=== PATIENT | female | born 1945 | race Caucasian/White ===

== ENCOUNTER → 2018-05-01 12:08 | Outpatient (CLI) | payer OTHER, SELFPAY ==
[2018-05-01 14:49] LABS: Alanine Aminotransferase 17 IU/L (9-52); Albumin Globulin Ratio 1.2 (1.0-2.8); Alkaline Phosphatase 56 U/L (38-126); Aspartate Aminotransferase 26 IU/L (14-36); Bilirubin Total 0.6 mg/dL (0.2-1.3); Blood Urea Nitrogen 15 mg/dL (7-17); Calcium 9.2 mg/dL (8.4-10.2); Carbon Dioxide 29 mmol/L (22-32); Chloride 102 mmol/L (98-107); Cholesterol 258 mg/dL (140-199); Estimated Glomerular Filt Rate > 60.0 mL/min (>60); Globulin 3.3 g/dL (1.7-4.1); Glucose 97 mg/dL (80-110); HDL Cholesterol 77 mg/dL (40-60); HEMOLYSIS < 15 (0-50); LDL Cholesterol Calculated 169 mg/dL (<100); Potassium 4.2 mmol/L (3.4-5.1); Sodium 140 mmol/L (137-145); Total Protein 7.3 g/dL (6.3-8.2); Triglycerides 61 mg/dL (35-150)
[2018-05-01 14:50] LABS: Thyroid Stimulating Hormone 3.86 uIU/mL (0.47-4.68)
[2018-05-01 15:49] LABS: Microalbumi Creatinin Ratio Ur 7.1 ug/mg CR (<30); Microalbumin Urine Random < 0.6 mg/dL (0-1.6)
== END ==
PROVIDERS: Family Provider Physician Assistant; PCP Physician Assistant; Visit Provider Physician Assistant
DX: I10 Essential (primary) hypertension (principal); E03.9 Hypothyroidism, unspecified
CPT/HCPCS: 36415; 80053; 80061; 82043; 82570; 84443

== ENCOUNTER → 2018-08-20 13:11 | Outpatient (CLI) | payer OTHER, SELFPAY | PROVIDERS: PCP Physician Assistant; Visit Provider Physician Assistant | DX: Z53.9 Procedure and treatment not carried out, unspecified reason (principal) ==

== ENCOUNTER → 2018-10-23 12:11 | Outpatient (CLI) | payer OTHER, SELFPAY ==
[2018-10-23 12:52] LABS: Alanine Aminotransferase 20 IU/L (9-52); Albumin 4.3 g/dL (3.5-5.0); Albumin Globulin Ratio 1.2 (1.0-2.8); Alkaline Phosphatase 66 U/L (38-126); Aspartate Aminotransferase 28 IU/L (14-36); BUN Creatinine Ratio 23.3 (6-22); Bilirubin Total 0.4 mg/dL (0.2-1.3); Blood Urea Nitrogen 14 mg/dL (7-17); Calcium 9.5 mg/dL (8.4-10.2); Carbon Dioxide 27 mmol/L (22-32); Chloride 100 mmol/L (98-107); Cholesterol 268 mg/dL (140-199); Estimated Glomerular Filt Rate > 60.0 mL/min (>60); Globulin 3.6 g/dL (1.7-4.1); Glucose 92 mg/dL (80-110); HDL Cholesterol 81 mg/dL (40-60); HEMOLYSIS < 15 (0-50); LDL Cholesterol Calculated 176 mg/dL (<100); Potassium 4.3 mmol/L (3.4-5.1); Sodium 138 mmol/L (137-145); Total Protein 7.9 g/dL (6.3-8.2); Triglycerides 57 mg/dL (35-150)
[2018-10-23 13:22] LABS: Thyroid Stimulating Hormone 3.72 uIU/mL (0.47-4.68)
[2018-10-23 14:45] LABS: Creatinine Urine Random 53.1 mg/dL
[2018-10-23 14:52] LABS: Microalbumi Creatinin Ratio Ur 11.2 ug/mg CR (<30); Microalbumin Urine Random < 0.6 mg/dL (0-1.6)
== END ==
PROVIDERS: PCP Physician Assistant; Visit Provider Physician Assistant
DX: E03.9 Hypothyroidism, unspecified (principal); E78.5 Hyperlipidemia, unspecified; I10 Essential (primary) hypertension
CPT/HCPCS: 36415; 80053; 80061; 82043; 82570; 84443

== ENCOUNTER 2018-11-19 16:53 | Emergency (ER) | payer OTHER, SELFPAY ==
[2018-11-19 17:05] VITALS: BP 150/90; PULSE 70; RESP 14; TEMP 36.2; O2SAT 99
--- NOTE | 2018-11-19 17:11 | DI.CT.S_ITS ---
PROCEDURE: CT HEAD/BRAIN WO CON INDICATIONS: trip and fall, complex lac above left eyebrow, ASA 325 daily TECHNIQUE: Noncontrast 4.5 mm thick angled axial sections acquired from the foramen magnum to the vertex, with coronal and sagittal reformats. For radiation dose reduction, the following was used: automated exposure control, adjustment of mA and/or kV according to patient size. COMPARISON: None. FINDINGS: Image quality: Excellent. CSF spaces: Basal cisterns are patent. No extra-axial fluid collections. The ventricles are symmetric in size and shape. Brain: No intracranial bleeds or masses. There is cerebral volume loss for age, with resultant ventricular and sulcal prominence. There are periventricular and deep white matter chronic small vessel ischemic changes. There is intracranial internal carotid artery atherosclerosis. Skull and face: Left supraorbital soft tissue laceration is seen. Calvarium and visualized facial bones appear intact, without suspicious lesions. Sinuses: Visualized sinuses and mastoids are clear. IMPRESSION: 1. No CT evidence of acute intracranial pathology. Age-appropriate atrophy and mild periventricular white matter microangiopathic changes. 2. Left supraorbital laceration. No acute skull fracture or orbital wall fracture. Dictated by: Dragan Maria M.D. on 11/19/2018 at 17:38 Approved by: Dragan Maria M.D. on 11/19/2018 at 17:39
--- NOTE | 2018-11-19 18:47 | ED.FALL ---
HPI - Fall General Chief Complaint: Fall Stated Complaint: FALL HIT HEAD Time Seen by Provider: 11/19/18 18:07 Source: patient and family Mode of arrival: ambulatory Limitations: no limitations History of Present Illness HPI Narrative: Patient is a 73-year-old female who presents after ground level fall. She said [place]. She has an obvious laceration left supraorbital. No loss of consciousness no neck pain. She does take aspirin daily. She has no vision changes nausea or vomiting. She has no neck pain numbness or tingling. MD complaint: fall Onset (ago): minute(s) Fall from: standing Fall witnessed: yes, by family Place fall occurred: street Loss of consciousness: none Symptoms prior to fall: none Context: tripped/slipped Location of injury: head and face Related Data Home Medications Medication Instructions Recorded Confirmed aspirin 325 mg tablet 650 mg PO DAILY tab 11/05/18 11/19/18 amlodipine [Norvasc] 5 mg PO DAILY 11/19/18 11/19/18 levothyroxine [Synthroid] 75 mcg PO DAILY 11/19/18 11/19/18 Previous Rx's Medication Instructions Recorded lisinopril 20 1 tab PO QDAY #60 tab 10/18/18 mg-hydrochlorothiazide 25 mg tablet Allergies Allergy/AdvReac Type Severity Reaction Status Date / Time Ujkvnbs-[id number]-Xvy Reductase AdvReac Intermediate myalgias, Unverified 11/05/18 13:55 Inhibitor tinnitus [[id number] REDUCTASE INHIBITOR] Review of Systems Review of Systems GENERAL: Denies chills, fatigue, malaise, fever, sweats, travel HEENT: Denies sinus pain, ear pain, sore throat, difficulty swallowing, neck pain RESPIRATORY: Denies dyspnea, cough, wheezing, hemoptysis, sputum. CARDIOVASCULAR: Denies chest pain, palpitations, orthopnea, edema GASTROINTESTINAL: Denies nausea, vomiting, abdominal pain, diarrhea, constipation, melena. : Denies dysuria, frequency, incontinence, hematuria, urinary retention, flank pain. MUSCULOSKELETAL: Denies weakness, joint pain, or bony pain SKIN: +Laceration left supra orbital NEUROLOGIC: Denies weakness, dizziness, headache, numbness, change in speech, confusion PSYCHIATRIC: No concerning psychosocial issues. 12 point review of systems is negative except for those stated above and HPI Exam Initial Vital Signs Initial Vital Signs: Vital Signs Temperature 97.2 F L 11/19/18 17:05 Pulse Rate 70 11/19/18 17:05 Respiratory Rate 14 11/19/18 17:05 Blood Pressure 150/90 H 11/19/18 17:05 Pulse Oximetry 99 11/19/18 17:05 GENERAL: Alert well-appearing elderly female no acute distress HEENT: Head atraumatic,EOMI, pupils reactive, NECK: Supple nontender no vertebral tenderness full range of motion flexion and extension. No sign of trauma CARDIOVASCULAR: Regular rate and rhythm without murmurs, rubs or gallops. RESPIRATORY: Breath sounds equal bilaterally, no wheezes rales or rhonchi. ABDOMEN: Soft, nontender. Normoactive bowel sounds all 4 quadrants. No guarding or rebound. EXTREMITIES: Normal range of motion, no clubbing or edema. Neurovascularly intact NEUROLOGICAL: Alert and oriented x4.Normal gait and speech. Cranial nerves II through XII grossly intact. Good [id number], good [id number], strength equal bilaterally, no dysarthria or aphasia, sensation in tact to soft touch bilaterally, no visual changes, no facial droop SKIN: 6 cm laceration left supraorbital [facility] Medical History Hypothyroid (Acute) Surgical History History of thyroidectomy Social History Smoking Status: Former smoker Tobacco: How many years used: 42 second hand exposure: No alcohol intake: current (a couple of 6 ounce glasses of wine everyday and a shot of vodka before bed.) substance use type: marijuana Social History Smoking Status: Former smoker Tobacco: How many years used: 42 second hand exposure: No alcohol intake: current (a couple of 6 ounce glasses of wine everyday and a shot of vodka before bed.) substance use type: marijuana Procedures Laceration Repair Laceration 1: Site: face Side (If applicable): left ( supraorbital) Size (cm): 6 Description: stellate Depth: involves muscle layer Local Anesthetic: lidocaine 2% and with epi Amount of anesthesia used (mL): 5 Pre-repair: wound explored, irrigated extensively and deep structures intact Skin layer closed with: nylon Size (cm): 4-0 Number of sutures: 8 Technique: simple, interrupted Subcutaneous layer closed with: vicryl Size: 4-0 Number of sutures: 2 Technique: other (Mattress) Course Orders Ordered: ED Orders 11/19/18 17:11 CT head/brain wo con Stat Vital Signs - 8 hr 11/19/18 17:05 11/19/18 19:08 Temperature 97.2 F L Pulse Rate 70 83 Respiratory Rate 14 18 Blood Pressure 150/90 H Blood Pressure [Left Arm] 148/72 H Pulse Oximetry 99 97 MDM - Fall Lab Data Urine Dip Bedside Urine Glucose Negative Bedside Urine Bilirubin - Negative Bedside Urine Ketone - Negative Urine Specific [place] 1.015 Bedside Urine Occult Blood - Negative Bedside Urine pH 8.0 Bedside Urine Protein +/- 15 Bedside Urine Urobilinogen - Negative Bedside Urine Nitrite - Negative Bedside Urine Leukocytes - Negative Esterase Imaging Data CT scan - head: Radiologist's impression: PROCEDURE: CT HEAD/BRAIN WO CON INDICATIONS: trip and fall, complex lac above left eyebrow, ASA 325 daily TECHNIQUE: Noncontrast 4.5 mm thick angled axial sections acquired from the foramen magnum to the vertex, with coronal and sagittal reformats. For radiation dose reduction, the following was used: automated exposure control, adjustment of mA and/or kV according to patient size. COMPARISON: None. FINDINGS: Image quality: Excellent. CSF spaces: Basal cisterns are patent. No extra-axial fluid collections. The ventricles are symmetric in size and shape. Brain: No intracranial bleeds or masses. There is cerebral volume loss for age, with resultant ventricular and sulcal prominence. There are periventricular and deep white matter chronic small vessel ischemic changes. There is intracranial internal carotid artery atherosclerosis. Skull and face: Left supraorbital soft tissue laceration is seen. Calvarium and visualized facial bones appear intact, without suspicious lesions. Sinuses: Visualized sinuses and mastoids are clear. IMPRESSION: 1. No CT evidence of acute intracranial pathology. Age-appropriate atrophy and mild periventricular white matter microangiopathic changes. 2. Left supraorbital laceration. No acute skull fracture or orbital wall fracture. Dictated by: Dragan Maria M.D. on 11/19/2018 at 17:38 Discharge Plan Departure Patient Disposition: Home Clinical Impression: Closed head injury, Face lacerations Discharge Date/Time: 11/19/18 19:09 Interventions: ED Discharge Assessment Last Done: 11/19/18 19:08 Instructions: DI for Laceration Repair, Closed Head Injury Activity Restrictions/Additional Instructions: 1. Have your suture removed in 5-7 days, you may go to walk-in clinic, return to the ER or call your primary care physician. 2. No soaking in water including dishes, bathtubs, Lakes, swimming pools etc 3. Signs of infection include, but not limited to, increased redness, increased swelling, increased pain, fever and purulent drainage, if the symptoms should arise, you may need an antibiotic and you should have a reevaluation either by your primary care provider or by the emergency department. 4. Closed head injury: Return to ER if you should have persistent vomiting, seizures, weakness, difficulty speaking or any new or concerning symptoms Prescriptions: No Action aspirin 325 mg tablet 650 mg PO DAILY RF: 0 lisinopril-hydrochlorothiazide 20-25 mg tablet 1 tab PO QDAY Qty: 60 RF: 0 amlodipine [Norvasc] 5 MG tablet 5 mg PO DAILY RF: 0 levothyroxine [Synthroid] 75 mcg tablet 75 mcg PO DAILY RF: 0 Referrals: Caprice Burrows PA-C [Primary Care Provider] -
--- NOTE | 2018-11-19 18:54 | ED_ITS ---
HPI - Fall General Chief Complaint: Fall Stated Complaint: FALL HIT HEAD Time Seen by Provider: 11/19/18 18:07 Source: patient and family Mode of arrival: ambulatory Limitations: no limitations History of Present Illness HPI Narrative: Patient is a 73-year-old female who presents after ground level fall. She said [place]. She has an obvious laceration left supraorbital. No loss of consciousness no neck pain. She does take aspirin daily. She has no vision changes nausea or vomiting. She has no neck pain numbness or tingling. MD complaint: fall Onset (ago): minute(s) Fall from: standing Fall witnessed: yes, by family Place fall occurred: street Loss of consciousness: none Symptoms prior to fall: none Context: tripped/slipped Location of injury: head and face Related Data Home Medications Medication Instructions Recorded Confirmed aspirin 325 mg tablet 650 mg PO DAILY tab 11/05/18 11/19/18 amlodipine [Norvasc] 5 mg PO DAILY 11/19/18 11/19/18 levothyroxine [Synthroid] 75 mcg PO DAILY 11/19/18 11/19/18 Previous Rx's Medication Instructions Recorded lisinopril 20 1 tab PO QDAY #60 tab 10/18/18 mg-hydrochlorothiazide 25 mg tablet Allergies Allergy/AdvReac Type Severity Reaction Status Date / Time Xxkwgro-[id number]-Myv Reductase AdvReac Intermediate myalgias, Unverified 11/05/18 13: 55 Inhibitor tinnitus [[id number]-KEP REDUCTASE INHIBITOR] Review of Systems Review of Systems GENERAL: Denies chills, fatigue, malaise, fever, sweats, travel HEENT: Denies sinus pain, ear pain, sore throat, difficulty swallowing, neck pain RESPIRATORY: Denies dyspnea, cough, wheezing, hemoptysis, sputum. CARDIOVASCULAR: Denies chest pain, palpitations, orthopnea, edema GASTROINTESTINAL: Denies nausea, vomiting, abdominal pain, diarrhea, constipation, melena. : Denies dysuria, frequency, incontinence, hematuria, urinary retention, flank pain. MUSCULOSKELETAL: Denies weakness, joint pain, or bony pain SKIN: +Laceration left supra orbital NEUROLOGIC: Denies weakness, dizziness, headache, numbness, change in speech, confusion PSYCHIATRIC: No concerning psychosocial issues. 12 point review of systems is negative except for those stated above and HPI Exam Initial Vital Signs Initial Vital Signs: Vital Signs Temperature 97.2 F L 11/19/18 17:05 Pulse Rate 70 11/19/18 17:05 Respiratory Rate 14 11/19/18 17:05 Blood Pressure 150/90 H 11/19/18 17:05 Pulse Oximetry 99 11/19/18 17:05 GENERAL: Alert well-appearing elderly female no acute distress HEENT: Head atraumatic,EOMI, pupils reactive, NECK: Supple nontender no vertebral tenderness full range of motion flexion and extension. No sign of trauma CARDIOVASCULAR: Regular rate and rhythm without murmurs, rubs or gallops. RESPIRATORY: Breath sounds equal bilaterally, no wheezes rales or rhonchi. ABDOMEN: Soft, nontender. Normoactive bowel sounds all 4 quadrants. No guarding or rebound. EXTREMITIES: Normal range of motion, no clubbing or edema. Neurovascularly intact NEUROLOGICAL: Alert and oriented x4.Normal gait and speech. Cranial nerves II through XII grossly intact. Good [id number]-[id number], good [id number]-znru, strength equal bilaterally, no dysarthria or aphasia, sensation in tact to soft touch bilaterally, no visual changes, no facial droop SKIN: 6 cm laceration left supraorbital [facility] Medical History Hypothyroid (Acute) Surgical History History of thyroidectomy Social History Smoking Status: Former smoker Tobacco: How many years used: 42 second hand exposure: No alcohol intake: current (a couple of 6 ounce glasses of wine everyday and a shot of vodka before bed.) substance use type: marijuana Social History Smoking Status: Former smoker Tobacco: How many years used: 42 second hand exposure: No alcohol intake: current (a couple of 6 ounce glasses of wine everyday and a shot of vodka before bed.) substance use type: marijuana Procedures Laceration Repair Laceration 1: Site: face Side (If applicable): left ( supraorbital) Size (cm): 6 Description: stellate Depth: involves muscle layer Local Anesthetic: lidocaine 2% and with epi Amount of anesthesia used (mL): 5 Pre-repair: wound explored, irrigated extensively and deep structures intact Skin layer closed with: nylon Size (cm): 4-0 Number of sutures: 8 Technique: simple, interrupted Subcutaneous layer closed with: vicryl Size: 4-0 Number of sutures: 2 Technique: other (Mattress) Course Orders Ordered: ED Orders 11/19/18 17:11 CT head/brain wo con Stat Vital Signs - 8 hr 11/19/18 17:05 11/19/18 19:08 Temperature 97.2 F L Pulse Rate 70 83 Respiratory Rate 14 18 Blood Pressure 150/90 H Blood Pressure [Left Arm] 148/72 H Pulse Oximetry 99 97 MDM - Fall Lab Data Urine Dip Bedside Urine Glucose Negative Bedside Urine Bilirubin - Negative Bedside Urine Ketone - Negative Urine Specific [place] 1.015 Bedside Urine Occult Blood - Negative Bedside Urine pH 8.0 Bedside Urine Protein +/- 15 Bedside Urine Urobilinogen - Negative Bedside Urine Nitrite - Negative Bedside Urine Leukocytes - Negative Esterase Imaging Data CT scan - head: Radiologist's impression: PROCEDURE: CT HEAD/BRAIN WO CON INDICATIONS: trip and fall, complex lac above left eyebrow, ASA 325 daily TECHNIQUE: Noncontrast 4.5 mm thick angled axial sections acquired from the foramen magnum to the vertex, with coronal and sagittal reformats. For radiation dose reduction, the following was used: automated exposure control, adjustment of mA and/or kV according to patient size. COMPARISON: None. FINDINGS: Image quality: Excellent. CSF spaces: Basal cisterns are patent. No extra-axial fluid collections. The ventricles are symmetric in size and shape. Brain: No intracranial bleeds or masses. There is cerebral volume loss for age , with resultant ventricular and sulcal prominence. There are periventricular and deep white matter chronic small vessel ischemic changes. There is intracranial internal carotid artery atherosclerosis. Skull and face: Left supraorbital soft tissue laceration is seen. Calvarium and visualized facial bones appear intact, without suspicious lesions. Sinuses: Visualized sinuses and mastoids are clear. IMPRESSION: 1. No CT evidence of acute intracranial pathology. Age-appropriate atrophy and mild periventricular white matter microangiopathic changes. 2. Left supraorbital laceration. No acute skull fracture or orbital wall fracture. Dictated by: Dragan Maria M.D. on 11/19/2018 at 17:38 Discharge Plan Departure Patient Disposition: Home Clinical Impression: Closed head injury, Face lacerations Discharge Date/Time: 11/19/18 19:09 Interventions: ED Discharge Assessment Last Done: 11/19/18 19:08 Instructions: DI for Laceration Repair, Closed Head Injury Activity Restrictions/Additional Instructions: 1. Have your suture removed in 5-7 days, you may go to walk-in clinic, return to the ER or call your primary care physician. 2. No soaking in water including dishes, bathtubs, [place], swimming pools etc 3. Signs of infection include, but not limited to, increased redness, increased swelling, increased pain, fever and purulent drainage, if the symptoms should arise, you may need an antibiotic and you should have a reevaluation either by your primary care provider or by the emergency department. 4. Closed head injury: Return to ER if you should have persistent vomiting, seizures, weakness, difficulty speaking or any new or concerning symptoms Prescriptions: No Action aspirin 325 mg tablet 650 mg PO DAILY RF: 0 lisinopril-hydrochlorothiazide 20-25 mg tablet 1 tab PO QDAY Qty: 60 RF: 0 amlodipine [Norvasc] 5 MG tablet 5 mg PO DAILY RF: 0 levothyroxine [Synthroid] 75 mcg tablet 75 mcg PO DAILY RF: 0 Referrals: Caprice Burrows PA-C [Primary Care Provider] -
[2018-11-19 19:08] VITALS: BP 148/72; PULSE 83; RESP 18; O2SAT 97
== END 2018-11-19 19:09 | disposition home or self-care (01) ==
PROVIDERS: Emergency Provider Emergency Medicine; Family Provider Physician Assistant; PCP Physician Assistant
DX: S09.90XA Unspecified injury of head, initial encounter (principal); S01.81XA Laceration without foreign body of other part of head, initial encounter; W01.0XXA Fall on same level from slipping, tripping and stumbling without subsequent striking against object, initial encounter
CPT/HCPCS: 12014; 70450; 81003; 99283; 99284

== ENCOUNTER 2019-03-07 14:46 | Inpatient (IN) | payer OTHER, SELFPAY ==
[2019-03-07] VITALS (11 sets, daily range): BP systolic 90–156; BP diastolic 51–75; PULSE 72–122; RESP 12–20; TEMP 36.3–36.7; O2SAT 90–100; BMI 71.1; BMI 31.4
--- NOTE | 2019-03-07 | DI.RAD.S_ITS ---
PROCEDURE: XR HIP W PEL IF DONE LT 2V INDICATIONS: post operative left hip arthroplasty TECHNIQUE: 2 views of the hip were acquired. COMPARISON: Radiographs from earlier same day. FINDINGS: Bones: Status post open reduction and internal fixation of comminuted left femoral neck fracture with anterograde intramedullary nivia and dynamic compression screw. No evidence for acute hardware complication. Remainder of the visualized osseous structures appear intact. Diffuse osteopenia. No suspicious bony lesions. Soft tissues: No suspicious soft tissue calcifications or masses. Expected soft tissue changes from recent surgical procedure. IMPRESSION: Status post ORIF of comminuted proximal left femur fracture. Dictated by: Marc Olson M.D. on 03/08/2019 at 9:14 Approved by: Marc Olson M.D. on 03/08/2019 at 9:16
--- NOTE | 2019-03-07 | DI.RAD.S_ITS ---
PROCEDURE: XR HIP W PEL IF DONE LT 2V INDICATIONS: ORIF LEFT HIP TECHNIQUE: 2 intraoperative fluoroscopic views of the hip were acquired. COMPARISON: None. FINDINGS: Limited intraoperative fluoroscopic images of the left hip demonstrate interval open reduction and internal fixation of comminuted left femoral neck fracture. No evidence for acute hardware complication. Postoperative alignment appears anatomic. Total fluoroscopy time measured 388.7 seconds. IMPRESSION: Intraoperative fluoroscopic support for left hip ORIF of comminuted femoral neck fracture. Dictated by: Marc Olson M.D. on 03/08/2019 at 14:22 Approved by: Marc Olson M.D. on 03/08/2019 at 14:28
--- NOTE | 2019-03-07 14:49 | ED.FALL ---
HPI - Fall General Chief Complaint: Fall Stated Complaint: GLF-left hip pain Time Seen by Provider: 03/07/19 14:49 Source: EMS Limitations: no limitations History of Present Illness HPI Narrative: A 73 year old female who presents with ground level fall. She says she has been doing intermittent fasting and has not had anything to eat since 9:00 p.m.. She was out walking she has got extremely dizzy lightheaded did not pass out but fell on an incline onto her left hip. No head injury no loss of consciousness. She denies any chest pain or heart palpitations. No fever. She did receive 150 mg of fentanyl prior to arrival. Related Data Home Medications Medication Instructions Recorded Confirmed aspirin 325 mg tablet 650 mg PO BEDTIME tab 11/05/18 03/07/19 lisinopril-hydrochlorothiazide 1 tab PO DAILY 03/07/19 03/07/19 olive leaf extract 1,000 mg PO DAILY 03/07/19 03/07/19 Previous Rx's Medication Instructions Recorded amlodipine 5 mg tablet 5 mg PO DAILY #90 tab 12/14/18 levothyroxine 75 mcg tablet 75 mcg PO DAILY #90 tab 02/13/19 Allergies Allergy/AdvReac Type Severity Reaction Status Date / Time Cawwbji-Jjb-Bur Reductase AdvReac Intermediate myalgias, Verified 11/25/18 16:19 Inhibitor tinnitus [[id number] REDUCTASE INHIBITOR] Review of Systems Review of Systems ROS Unobtainable: All systems reviewed & are unremarkable except as noted in HPI and below Constitutional Denies chills, Denies fever(s), Denies lethargy and Denies weakness ENT Ears, Nose, Mouth, and Throat: Denies change in voice, Denies neck pain and Denies sore throat Cardiovascular Reports lightheadedness, Denies dyspnea and Denies dyspnea on exertion Respiratory Denies cough, Denies dyspnea, Denies dyspnea on exertion and Denies wheezing Gastrointestinal Gastrointestinal: Denies abdominal pain, Denies change in bowel habits, Denies diarrhea, Denies nausea and Denies vomiting Genitourinary Denies hematuria, Denies flank pain, Denies urinary incontinence and Denies urinary urgency Musculoskeletal Reports as per HPI and Denies neck pain Integumentary/Breasts Denies pruritus, Denies erythema, Denies rash and Denies wounds Neurologic Denies weakness Allergic/Immunologic Denies wheezing Exam Initial Vital Signs Initial Vital Signs: Vital Signs Temperature 97.6 F 03/07/19 15:00 Pulse Rate 73 03/07/19 15:00 Respiratory Rate 20 03/07/19 15:00 Blood Pressure 139/64 03/07/19 15:00 Pulse Oximetry 98 03/07/19 15:00 GENERAL: Alert female appears in pain no acute distress HEENT: Head atraumatic,EOMI, pupils reactive, neck is supple no rigidity real tenderness CARDIOVASCULAR: Regular rate and rhythm without murmurs, rubs or gallops. RESPIRATORY: Breath sounds equal bilaterally, no wheezes rales or rhonchi. ABDOMEN: Soft, nontender. Normoactive bowel sounds all 4 quadrants. No guarding or rebound. EXTREMITIES: Normal range of motion, no clubbing or edema. Neurovascularly intact Left leg internally rotated and shortened distal pedal pulse intact Left shoulder no gross bony deformity on pain to palpation limited range of motion NEUROLOGICAL: Alert and oriented x4.Normal gait and speech. Cranial nerves II through XII grossly intact. SKIN: Warm, dry, no laceration, no petechiae, no rashes or lesions. [facility] Medical History Hypothyroid (Acute) Surgical History History of thyroidectomy Social History Smoking Status: Former smoker Tobacco: How many years used: 42 second hand exposure: No alcohol intake: current (a couple of 6 ounce glasses of wine everyday and a shot of vodka before bed.) substance use type: marijuana Social History Smoking Status: Former smoker Tobacco: How many years used: 42 second hand exposure: No alcohol intake: current (a couple of 6 ounce glasses of wine everyday and a shot of vodka before bed.) substance use type: marijuana Course Orders Ordered: ED Orders 03/07/19 14:49 XR hip w pel if done LT 2V Stat XR shoulder LT min 2V Stat 03/07/19 14:50 EKG-12 Lead Stat 03/07/19 15:19 Complete Blood Count AUTO DIFF Stat Comprehensive Metabolic Panel Stat Troponin & CK Cardiac Panel Stat 03/07/19 16:28 Consult to Orthopedic Surgery Stat Lactated Ringer's (Lactated Ringers) 1,000 mls @ 42 mls/hr IV CONT NI Discontinued Medications Hydromorphone HCl (Dilaudid) 0.5 mg IV NOW ONE Stop: 03/07/19 15:15 Last Admin: 03/07/19 15:21 Dose: 0.5 mg Sodium Chloride (Normal Saline 0.9%) 1,000 mls @ 1,000 mls/hr IV BOLUS ONE Stop: 03/07/19 15:48 Last Infusion: 03/07/19 17:34 Dose: 0 mls/hr Admin: 03/07/19 15:21 Dose: 1,000 mls/hr Ondansetron HCl (Zofran) 4 mg IV NOW ONE Stop: 03/07/19 15:29 Last Admin: 03/07/19 15:29 Dose: 4 mg Consultations Consultation #1: Dr. Baer reviewed xray. In the ED to see and evaluate patient. Patient will be going to OR this evening. Time: 16:30 Consultation #2: Dr. alejo hospitalist accepted patient for transfer. Time: 17:16 Vital Signs - 8 hr 03/07/19 15:00 Temperature 97.6 F Pulse Rate 73 Respiratory Rate 20 Blood Pressure 139/64 Pulse Oximetry 98 MDM - Fall Lab Data Attestation: I reviewed the patient's lab results. Result diagrams: 03/07/19 15:19 03/07/19 15:19 Lab Results 03/07/19 03/07/19 Range/Units 15:19 15:19 WBC 11.1 H (4.5-11.0) X10^3/uL RBC 4.01 (4.0-5.2) X10^6/uL Hgb 13.2 (12.0-16.0) g/dL Hct 38.8 (36-46) % MCV 96.7 (80-100) fL MCH 32.9 (26-34) PG MCHC 34.1 (30-36) % RDW 14.1 (11.6-14.8) % Plt Count 246 (150-400) X10^3/uL Neut % (Auto) 78.5 H (50-75) % Lymph % (Auto) 15.4 L (25-40) % [place] % (Auto) 4.2 (3-14) % Eos % (Auto) 0.6 L (2-4) % Baso % (Auto) 1.3 (0-2) % Neut # (Auto) 8700 H (0181-8236) /uL Lymph # (Auto) 1700 (5748-7349) /uL [place] # (Auto) 500 (0-900) /uL Eos # (Auto) 100 (0-450) /uL Baso # (Auto) 100 (0-100) /uL Sodium 135 L (137-145) mmol/L Potassium 4.2 (3.4-5.1) mmol/L Chloride 102 (98-107) mmol/L Carbon Dioxide 19 L (22-32) mmol/L BUN 16 (7-17) mg/dL Creatinine 0.80 (0.52-1.04) mg/dL Estimated GFR > 60.0 (>60) mL/min BUN/Creatinine Ratio 20.0 (6-22) Glucose 126 H (80-110) mg/dL Calcium 9.4 (8.4-10.2) mg/dL Total Bilirubin 0.9 (0.2-1.3) mg/dL AST 36 (14-36) IU/L ALT 23 (9-52) IU/L Alkaline Phosphatase 59 (38-126) U/L Total Creatine Kinase 137 H (30-135) U/L CK-MB (CK-2) 1.09 (<2.37) ng/mL CK-MB (CK-2) Rel Index 0.8 L (1.5-5.0) % Troponin I 0.025 (0.01-0.034) ng/mL Total Protein 7.1 (6.3-8.2) g/dL Albumin 4.1 (3.5-5.0) g/dL Globulin 3.0 (1.7-4.1) g/dL Albumin/Globulin Ratio 1.4 (1.0-2.8) Imaging Data left hip: Radiologist's impression: PROCEDURE: XR HIP W PEL IF DONE LT 2V INDICATIONS: fall deformity TECHNIQUE: AP pelvis with lateral view(s) of the left hip. COMPARISON: None. FINDINGS: Bones: No dislocations. Pelvic ring appears intact. No suspicious bony lesions. There is a comminuted intertrochanteric left hip fracture with impaction at the fracture planes and abnormal varus angulation due to the impaction present. The obturator ring on the left appears free of traumatic injury. Soft tissues: The visualized bowel gas pattern is normal. No suspicious soft tissue calcifications. IMPRESSION: Intertrochanteric comminuted impacted and abnormally angulated acute appearing left hip fracture. Surgical intervention is anticipated. Dictated by: Tim Rojo M.D. on 03/07/2019 at 15:31 left shoulder: Radiologist's impression: PROCEDURE: XR SHOULDER LT MIN 2V INDICATIONS: fall pain TECHNIQUE: 4 views of the shoulder were acquired. COMPARISON: None. FINDINGS: Bones: No fractures or dislocations. No suspicious bony lesions. Visualized ribs appear intact. Moderate a.c. joint osteoarthritis. Bone island is noted within the glenoid marrow space deep to the articular surface. Soft tissues: No suspicious soft tissue calcifications. IMPRESSION: Moderate a.c. joint osteoarthritis but without fracture or traumatic subluxation. Incidental note is made of a benign-appearing bone island deep to the articular surface of the glenoid base. Dictated by: Tim Rojo M.D. on 03/07/2019 at 15:30 ECG Data Attestation: I personally reviewed and interpreted this ECG as follows: Interpretation: normal sinus rhythm rate 70 P are [address] changes and T-wave inversion Discharge Plan Departure Patient Disposition: Admitted As Inpatient Interventions: ED Discharge Assessment Last Done: 03/07/19 18:21 Admit Date/Time: 03/07/19 17:32 Admit Provider: Daisy Higginbotham
[2019-03-07] MEDS: HYDROMORPHONE 1 MG INJ 0.5 MG IV (15:21)
[2019-03-07] MEDS: SODIUM CHLORIDE 0.9% 1,000 ML 1000 ML IV (15:21)
[2019-03-07] MEDS: ONDANSETRON 4 MG/2 ML INJ IV (15:29)
[2019-03-07 15:30] LABS: Add Manual Diff / Slide Review NO; Basophils Absolute Auto 100 /uL (0-100); Basophils Percent Auto 1.3 % (0-2); Eosinophils Absolute Auto 100 /uL (0-450); Eosinophils Percent Auto 0.6 % (2-4); Hematocrit 38.8 % (36-46); Hemoglobin 13.2 g/dL (12.0-16.0); Lymphocytes Absolute Auto 1700 /uL (1100-4500); Lymphocytes Percent Auto 15.4 % (25-40); Mean Corpuscular HGB Conc 34.1 % (30-36); Mean Corpuscular Hemoglobin 32.9 PG (26-34); Mean Corpuscular Volume 96.7 fL (80-100); Monocytes Absolute Auto 500 /uL (0-900); Monocytes Percent Auto 4.2 % (3-14); Neutrophils Absolute Auto 8700 /uL (1500-7000); Neutrophils Percent Auto 78.5 % (50-75); Platelet Count 246 X10^3/uL (150-400); Red Blood Cell Count 4.01 X10^6/uL (4.0-5.2); Red Cell Distribution Width 14.1 % (11.6-14.8); White Blood Cell Count 11.1 X10^3/uL (4.5-11.0)
[2019-03-07 15:47] LABS: Alanine Aminotransferase 23 IU/L (9-52); Albumin 4.1 g/dL (3.5-5.0); Albumin Globulin Ratio 1.4 (1.0-2.8); Alkaline Phosphatase 59 U/L (38-126); Aspartate Aminotransferase 36 IU/L (14-36); Bilirubin Total 0.9 mg/dL (0.2-1.3); Blood Urea Nitrogen 16 mg/dL (7-17); Calcium 9.4 mg/dL (8.4-10.2); Carbon Dioxide 19 mmol/L (22-32); Chloride 102 mmol/L (98-107); Creatine Kinase 137 U/L (30-135); Estimated Glomerular Filt Rate > 60.0 mL/min (>60); Glucose 126 mg/dL (80-110); HEMOLYSIS < 15 (0-50); Potassium 4.2 mmol/L (3.4-5.1); Sodium 135 mmol/L (137-145); Total Protein 7.1 g/dL (6.3-8.2)
[2019-03-07 15:59] LABS: Troponin I 0.025 ng/mL (0.01-0.034)
[2019-03-07 16:03] LABS: CKMB % Relative Index 0.8 % (1.5-5.0); Creatine Kinase MB 1.09 ng/mL (<2.37)
[2019-03-07] MEDS: LACTATED RINGERS 1,000 ML 42 ML IV ×2 (18:30→21:01)
[2019-03-07] MEDS: fentaNYL 100 MCG/2 ML INJ 50 MCG IV (18:31)
--- NOTE | 2019-03-07 18:39 | PM.HP.1 ---
History of Present Illness Date Patient Seen: 03/07/19 Time Patient Seen: 18:03 Chief complaint: GLF-left hip pain Narrative: This is a 73-year-old female who on fall today and noted the acute onset of left hip pain. She manages some rental since she was out in a remote area she landed on her left hip and then had to crawl around to find somebody to call 911. She last had something to eat or drink at about 9:00 p.m. last night. Patient History Medical History Hypothyroid (Acute) Surgical History History of thyroidectomy Social History Smoking Status: Former smoker Tobacco: How many years used: 42 second hand exposure: No alcohol intake: current (a couple of 6 ounce glasses of wine everyday and a shot of vodka before bed.) substance use type: marijuana Family & Social History Safety & Behavioral: Feels Safe in Current Yes Environment Been Physically Hurt or No Threatened By a Person Tobacco & Substance use: Smoking Status Former smoker alcohol intake current alcohol intake frequency 3 or more drinks per day Substance Use Type marijuana Meds Home Medications Medication Instructions Recorded Confirmed Type aspirin 325 mg tablet 650 mg PO BEDTIME tab 11/05/18 03/07/19 History amlodipine 5 mg tablet 5 mg PO DAILY #90 tab 12/14/18 03/07/19 Rx levothyroxine 75 mcg tablet 75 mcg PO DAILY #90 tab 02/13/19 03/07/19 Rx lisinopril-hydrochlorothiazide 1 tab PO DAILY 03/07/19 03/07/19 History olive leaf extract 1,000 mg PO DAILY 03/07/19 03/07/19 History Allergies Allergy/AdvReac Type Severity Reaction Status Date / Time [place]-Qpr-Toc Reductase AdvReac Intermediate myalgias, Verified 11/25/18 16:19 Inhibitor tinnitus [[id number] REDUCTASE INHIBITOR] Review of Systems Review of Systems She denies dizziness, does not note any chest pain shortness of breath or abdominal pain. She normally is able to ambulate without significant difficulty. She has not had any recent fever or chills or GI distress Exam Vital Signs (past 8 hours): - 03/07/19 15:00 Temperature 97.6 F Pulse Rate 73 Respiratory Rate 20 Blood Pressure 139/64 Pulse Oximetry 98 Oxygen Delivery Method Room Air Narrative Exam Narrative: HEENT is benign, lungs are clear, cor regular rate and rhythm, abdomen soft and benign, left lower extremity is markedly foreshortened and externally rotated, her pelvis is stable and she is nontender over her pelvis there is a small abrasion on the left knee but she has a stable knee examination and minimal effusion, she has small abrasion on the left elbow but full range of motion of the elbow and in track elbow extension and triceps function Objective Labs Result Diagrams: 03/07/19 15:19 03/07/19 15:19 Labs: Laboratory Results - last 24 hr 03/07/19 03/07/19 15:19 15:19 WBC 11.1 H RBC 4.01 Hgb 13.2 Hct 38.8 MCV 96.7 MCH 32.9 MCHC 34.1 RDW 14.1 Plt Count 246 Neut % (Auto) 78.5 H Lymph % (Auto) 15.4 L Lucas % (Auto) 4.2 Eos % (Auto) 0.6 L Baso % (Auto) 1.3 Neut # (Auto) 8700 H Lymph # (Auto) 1700 Lucas # (Auto) 500 Eos # (Auto) 100 Baso # (Auto) 100 Sodium 135 L Potassium 4.2 Chloride 102 Carbon Dioxide 19 L BUN 16 Creatinine 0.80 Estimated GFR > 60.0 BUN/Creatinine Ratio 20.0 Glucose 126 H Calcium 9.4 Total Bilirubin 0.9 AST 36 ALT 23 Alkaline Phosphatase 59 Total Creatine Kinase 137 H CK-MB (CK-2) 1.09 CK-MB (CK-2) Rel Index 0.8 L Troponin I 0.025 Total Protein 7.1 Albumin 4.1 Globulin 3.0 Albumin/Globulin Ratio 1.4 X-rays show a comminuted left proximal femur fracture in her troch and lesser troch variant with at least 3 major pieces. It is grossly displaced and in varus. Assessment & Plan Assessment & Plan narrative: Patient has a comminuted left proximal femur fracture. I have recommended open reduction internal fixation and fixation with a intramedullary nivia. The procedure alternatives risks benefits and complications were discussed in detail. I did explain to her that she has a severely comminuted fracture think it is reasonable to proceed with intramedullary fixation. She will need to be limited weight-bearing postoperatively. I also explained there is a possibility of failure of fixation or of her bone requiring revision surgery to hip arthroplasty. Anesthetic complications and risks were also discussed. Risk of infection bleeding malunion nonunion and failure of fixation were discussed in detail.
[2019-03-07] MEDS: CEFAZOLIN 2 GM/100 ML FROZ.PIGGY IV (18:49)
[2019-03-07] MEDS: BUPIVACAINE 0.25% W/ EPI 30 ML VIAL INJ (21:49)
[2019-03-07] MEDS: BUPIVACAINE LIPOSOME 266 MG/20 ML VIAL INJ (21:50)
--- NOTE | 2019-03-07 22:51 | P.OP_ITS ---
Operative Date/Time/Diagnoses Date of procedure: 03/07/19 Time of procedure: 19:20 Pre-op diagnosis: Comminuted left proximal femur fracture Post-op diagnosis: same Procedure & Clinicians Procedure: Open reduction internal fixation left proximal femur fracture with a Synthes TFN nail 105 degree helical blade 36 mm locking screw and as the 7.3 by 90 mm long threaded AO screw Same procedure as scheduled: Yes Indications: 73-year-old female who fell and has a grossly displaced comminuted left proximal femur fracture noted to have severe varus collapse and gross deformity brought to the operating room for open reduction internal fixation. Surgeon: Linda Baer Click Yes if Unassisted: Yes Anesthesia Type: General Operative Notes Findings: Severely displaced comminuted proximal femur fracture with fracture lesser trochanter greater trochanter intertrochanteric region with a moderate split and gross displacement, Joe quality bone Closure Type: primary Specimen(s): none sent Prosthetic devices, grafts, tissues, transplants, or devices: A0 Synthes TFN 105 mm helical blade 10 mm 125 degree nail 7.3 x 90 mm cannulated screw Estimated Blood Loss (mL): 350 Blood products transfused: none Procedure in detail: Patient was brought to the operating room she underwent the induction of a general anesthesia. She was carefully transferred to the [place] table and prepped and draped in a standard sterile fashion. A specific reduction technique was used in order to attempt to improve the overall alignment of the left proximal femur and I specifically checked in detail with fluoroscopy prior to prepping and draping that we had optimized the position her position of her leg applied traction attempted to correct the varus deformity of her femoral neck and improve her overall alignment. Her fracture was quite comminuted and grossly displaced and was only partially reducible closed. Time- out was performed and antibiotics were given. She was prepped sterilely. An incision was made which was based on the proximal aspect of the trochanter and carried proximally. I did place her leg in some slight flexion because of the gross deformity and marked flexion of the proximal fragment. Dissection was carried out through skin and subcutaneous tissues. Incision was made down to the level of the fascia. Fascia was incised and Gelpi retractors were placed. The trochanter was palpable as was the fracture site. I used a multi combination of 2 bone reduction clamps as well as a bone hook in order to improve the overall reduction as well as manual traction pressure and specifically attempting to optimize the reduction of the proximal femur. Was fairly difficult to reduce and it was a little difficult to get the clamps placed so that she was stable. I did place 2 pins across the fracture site in order to stabilize the femoral head in order to avoid any spinning of the femoral head as well as reducing the fracture site during nail insertion so that ultimate nail placement would be improved. A pin was placed in the proximal femur. Was difficult to get the bony starting Reamer in and I actually subsequently by used cannulated flexible reamers to a slightly enlarged our proximal starting spot. Guidewire was actually [place] Fraga passed down towards the knee. And then I used some additional reaming of the proximal femur specifically work to optimize the reduction which was pretty unstable despite several clamps and pins ultimately I was able then to then get the the starting Reamer over the guidewire reamed the proximal femur and also checked the canal passing a Reamer down some and a size 11 Reamer down some into the canal and then inserted the nail. Particularly worked to get the nail adequately position so that I would be able to shoot a pin into the femoral neck placed the pin that the fracture was a little unstable that the nail tended to back out as a attempted to advance the locking device down to the cortex and I also had to work to specifically get adequate anteversion with my nail position. To K-wires for 7 3 screws were placed across the fracture site stabilizing the fracture and the femoral head to avoid disimpaction of the fracture with helical blade advancement. Once the guidewire then appropriately placed in the proximal fragment the helical blade was carefully advanced. I used the imaging to make sure that I had adequately centralize the plate placement and meticulously advanced the helical blade. The blade was then locked. I did advance that as far as I could into the femoral head without penetration. The distal interlocking screw was placed. Next the alignment guide was removed from the nail and then I specifically placed removed the pins from around the nail but placed a supplemental screw fixation into the femoral head outside the nail in order to further stabilize the fracture. Fractures reduction and fixation was meticulously evaluated with fluoroscopy. The wounds were meticulously irrigated with normal saline. Hemostasis was achieved with Bovie cautery. Exparel and Marcaine was injected. The wound was closed with interrupted Vicryl leann stitches skin anna and was dressed sterilely. Patient tolerated the procedure well she was transferred to recovery room in satisfactory condition. Complications: none Condition: stable Disposition: Acute Care Plan for aftercare: Partial weight-bearing on the left lower extremity 25-50 lb at max. Will likely require short-term ECF.
[2019-03-08] VITALS (9 sets, daily range): BP systolic 111–146; BP diastolic 52–77; PULSE 80–96; RESP 16–18; TEMP 36.1–37; O2SAT 93–100
[2019-03-08] MEDS: LACTATED RINGERS 1,000 ML 125 ML IV ×2 (00:15→09:29)
--- NOTE | 2019-03-08 00:47 | P.HP_ITS ---
History of Present Illness Date Patient Seen: 03/08/19 Time Patient Seen: 00:05 Chief complaint: GLF-left hip pain Narrative: Avery Singh is a 73-year-old female patient with history sign ificant for hypertension, acquired hypothyroidism secondary to thyroid cancer, morbid obesity and frequent falls who presents to the ER following a ground level fall today landing on her left hip. Patient states she has been intermittently fasting and had not had food but has been drinking water and coffee when she became dizzy and fell onto her left hip. The patient relates that she has had intermittent episodes of dizziness that her transient and that the episode today is no different from those previous. She also sustained abrasions over the left patella and left elbow without contusion or swelling. She reports having previous falls last being on Monday where she landed on her left shoulder and sustained a contusion over her left eye. She has resolving ecchymosis on her right medial forearm. The patient indicates she did not lose consciousness and sustained no neck or back injury. She denies recent prodromal symptoms including recent illness, fevers or chills, headaches or visual changes and no diaphoresis. She denies nasal congestion or sore throat. She has no chest pain but endorses having occasional episodes of palpitations. She denies shortness of breath cough or wheezing. She reports no abdominal pain and has had no nausea or vomiting diarrhea or constipation. She reports no dysuria, frequency or hematuria however states when she has to go she has to go now. She typically is ambulatory without difficulty and independent in all functions of daily living. In the ER the patient was found to have a temperature of 97.6?, heart rate of 73, blood pressure 139/69, respiratory rate of 20 and room air oxygen saturation at 90%. A pelvis hip x-ray was taken which demonstrated intertrochanteric comminuted and angulated fracture of the left hip. Patient received Dilaudid and Zofran and a L of normal saline. Twelve lead EKG demonstrates sinus rhythm with a ventricular rate of 70 without ectopy or block, no ST or T-wave changes or indications of infarct. The patient's CBC is unremarkable as is her chemistry panel. She has a nonfasting glucose at 126. Dr. Baer orthopedics is consulted who is elected to take the patient from the emergency department to the OR for open reduction and internal fixation. The patient is evaluated on the floor following recovery in postanesthesia care unit. Patient History Medical History (Updated 03/08/19 @ 00:39 by ANDRES Dutta) Hypertension (Acute) Thyroid cancer (Acute) Hypothyroid (Acute) Surgical History (Updated 03/08/19 @ 00:40 by ANDRES Dutta) History of myomectomy (Acute) History of thyroidectomy Family History (Updated 03/08/19 @ 00:41 by ANDRES Dutta) Father Alcoholism Smoker Mother No problems noted. Sister No problems noted. Social History household members: none Smoking Status: Former smoker Tobacco: How many years used: 42 second hand exposure: No alcohol intake: current substance use type: marijuana Family & Social History Family History (Updated 03/08/19 @ 00:41 by ANDRES Dutta) Father Alcoholism Smoker Mother No problems noted. Sister No problems noted. Social History: household members none Prior Living Arrangements House Safety & Behavioral: Feels Safe in Current Yes Environment Been Physically Hurt or No Threatened By a Person Suicidal Ideation Description None Tobacco & Substance use: Smoking Status Former smoker alcohol intake current alcohol intake frequency 3 or more drinks per day Substance Use Type marijuana Comment: The patient presently lives alone in a single family house. She was previously and ?a long time ago?. Patient's father at the age of 53 related to alcoholism and smoking and her mother at age 93 of old age. She had 1 sister who of heart attack. She has no biological children and 2 adopted children. 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 Smokin year history of smoking 2 packs per week having quit 15 years ago. Alcohol: Patient endorses having 2-3 glasses of wine nightly. Substance use: The patient denies recreation pharmaceuticals but endorses the use of topical CBD oil and smoking cannabis. Advanced directives: The patient has no formal advanced directive however in direct conversation with the patient she wishes to be DO NOT RESUSCITATE. She designates her friend Kishan Johnson in concert with her children to be surrogate decision makers. Meds Home Medications Medication Instructions Recorded Confirmed Type aspirin 325 mg tablet 650 mg PO BEDTIME PRN tab 11/05/18 03/07/19 History amlodipine 5 mg tablet 5 mg PO DAILY #90 tab 12/14/18 03/07/19 Rx levothyroxine 75 mcg tablet 75 mcg PO DAILY #90 tab 02/13/19 03/07/19 Rx lisinopril-hydrochlorothiazide 1 tab PO DAILY 03/07/19 03/07/19 History olive leaf extract 1,000 mg PO DAILY 03/07/19 03/07/19 History Allergies Allergy/AdvReac Type Severity Reaction Status Date / Time Lwwvicc-Atc-Dvo Reductase AdvReac Intermediate myalgias, Verified 11/25/18 16:19 Inhibitor tinnitus [[id number] REDUCTASE INHIBITOR] Review of Systems Review of Systems All systems reviewed & are unremarkable except as noted in HPI and below Exam Vital Signs (past 8 hours): - 03/07/19 18:22 03/07/19 22:17 03/07/19 22:22 Temperature 98.1 F 98.0 F Pulse Rate 72 122 H 121 H Respiratory Rate 16 18 12 Blood Pressure 156/75 H 103/57 L 98/53 L Pulse Oximetry 100 92 90 L 03/07/19 22:26 03/07/19 22:31 03/07/19 22:41 Temperature 97.7 F Pulse Rate 121 H 116 H 115 H Respiratory Rate 15 13 14 Blood Pressure 92/61 95/57 L 90/61 Pulse Oximetry 98 93 94 03/07/19 22:51 03/07/19 23:02 03/07/19 23:10 Temperature 97.4 F L 97.8 F Pulse Rate 109 H 99 H 111 H Respiratory Rate 14 13 18 Blood Pressure 98/63 98/51 L 104/64 Pulse Oximetry 95 95 96 Oxygen Delivery Method Room Air Oxygen Flow Rate 1 Narrative Exam Narrative: GENERAL APPEARANCE: well developed, obese female with a BMI of 31.4, in no acute distress. HEAD: Normocephalic, tenderness over left upper orbital ridge with mild swelling, no redness, no lesions or abrasions. EYES: pupils equal, round, reactive to light and accommodation, sclera non- icteric, extraocular movement intact without nystagmus. EARS: normal external structures, no ear pain NOSE: sinuses non tender to percussion, no rhinorrhea ORAL CAVITY: mucosa moist without lesions or exudate, own dentition, palate normal, tongue in midline. THROAT: no erythema, no exudate, pharynx normal, uvula midline. NECK/THYROID: Well-healed fine surgical scar right neck, neck supple, no jugular venous distention, no carotid bruit, trachea midline. LYMPH NODES: no cervical or supraclavicular lymphadenopathy. SKIN: warm and dry, no suspicious lesions, no rashes, good turgor. HEART: regular rate with periods of irregular rhythm, sinus rhythm with frequent PACs on telemetry, S1-S2 without murmur, no rubs or gallops, brisk capillary refill, no edema LUNGS: clear to auscultation bilaterally, no coarseness crackles or wheezing, no cough present CHEST: Symmetrical movement, good tidal volume, no accessory muscle use, no pain to AP and lateral compression. ABDOMEN: Soft, round, no distention, no epigastric or abdominal tenderness on palpation, no guarding or peritoneal signs, no organomegaly, no flank or suprapubic tenderness, active bowel tones. BACK: Normal curvature, nontender to palpation, no CVA tenderness on percussion EXTREMITIES: Surgical dressing left hip with bloody drainage, abrasion over left patella with no swelling contusion or joint effusion, abrasion left lateral elbow without tenderness, bony deformity or swelling, upper extremity strength is 5/5 and symmetrical, strong dorsi plantar flexion bilateral feet, 2+ dorsalis pedis pulse. NEUROLOGIC: AAO x4, no focal neurologic deficits, cranial nerves II-XII grossly intact , motor strength normal upper and lower extremities, sensory exam intact to light touch, hearing grossly normal to speech. PSYCH: alert, appropriately interactive, cognitive function intact with good r ecall, good eye contact, stable mood with congruent affect Objective Labs Result Diagrams: 03/07/19 15:19 03/07/19 15:19 Labs: Laboratory Results - last 24 hr 03/07/19 03/07/19 15:19 15:19 WBC 11.1 H RBC 4.01 Hgb 13.2 Hct 38.8 MCV 96.7 MCH 32.9 MCHC 34.1 RDW 14.1 Plt Count 246 Neut % (Auto) 78.5 H Lymph % (Auto) 15.4 L [place] % (Auto) 4.2 Eos % (Auto) 0.6 L Baso % (Auto) 1.3 Neut # (Auto) 8700 H Lymph # (Auto) 1700 [place] # (Auto) 500 Eos # (Auto) 100 Baso # (Auto) 100 Sodium 135 L Potassium 4.2 Chloride 102 Carbon Dioxide 19 L BUN 16 Creatinine 0.80 Estimated GFR > 60.0 BUN/Creatinine Ratio 20.0 Glucose 126 H Calcium 9.4 Total Bilirubin 0.9 AST 36 ALT 23 Alkaline Phosphatase 59 Total Creatine Kinase 137 H CK-MB (CK-2) 1.09 CK-MB (CK-2) Rel Index 0.8 L Troponin I 0.025 Total Protein 7.1 Albumin 4.1 Globulin 3.0 Albumin/Globulin Ratio 1.4 Assessment & Plan Assessment & Plan narrative: This is a 73-year-old female patient who sustained a ground level fall secondary to dizziness landing on her left hip sustaining an intertrochanteric fracture of the left proximal femur. 1. Acute comminuted and angulated intertrochanteric fracture left hip. -patient sustained a ground level fall landing on her left hip sustaining abrasions to her left elbow and left knee. -x-ray demonstrates fracture from the lesser to greater trochanter that is comminuted and angulated. -Dr. Baer, orthopedics, is consulted and has taken the patient from the ER to the OR for open reduction internal fixation. -patient is status post ORIF with intramedullary nail with cannulated screw -postoperative orthopedic instructions per Dr. Baer. -will monitor CBC on home aspirin. 2. Frequent falls, active -patient has bruises in various stages of healing and endorses frequent falls occurring multiple times monthly, the last being 5 days ago. -the patient has risk factors of aspirin use, obesity and also reports she was wearing sandals today. -PT and OT to evaluate and treat. 3. Chronic dizziness, active -today the patient had dizziness antecedent to her fall but no other complaints of headache or weakness. -Patient had been on intermittent fast with nothing to eat since 9:00 a.m.. She had been drinking water and coffee, blood sugar upon arrival at the ER was 126. -the patient is prescribed diuretic, hydrochlorothiazide 25 mg daily which may contribute to her dizziness. -She reports no visual changes, chest pain, palpitations or shortness of breath. -The patient had a CT Head on 11/19/2018 following a fall which found no intercrainial abnormalities, left supr orbital laceration, age-appropriate atrophy and mild periventricular white matter microangiopathic changes, no findings to explain her dizziness. -no present complaint of dizziness at the time of exam, neurological exam is unremarkable. -hold hydrochlorothiazide. 4. Chronic hypertension, stable. -blood pressure on admission was 139/69. Immediately postop blood pressure is for in the 90s return to 120/60 upon admission to the acute care floor. -no complaints of chest pain or shortness of breath, 12 lead EKG reveals sinus rhythm without ectopy, signs of ischemia or infarct. Postoperatively patient in sinus rhythm with frequent PACs. -LR at 125 cc/hour. -will plan to hold patient's routine lisinopril 20 mg and amlodipine 5 mg until blood pressure improves. -will discontinue hydrochlorothiazide as discussed above. -will monitor chemistries. 5. Acquired hypothyroidism, chronic, presumed stable -continue levothyroxine 75 mcg daily The patient is admitted to the hospital for operative management for intertrochanteric fracture. The patient is admitted as an inpatient with expected length of stay to be greater than 2 midnights. Time Spent With Patient Time with patient: 25 - 35 minutes
[2019-03-08] MEDS: CEFAZOLIN 2 GM/100 ML FROZ.PIGGY IV ×2 (03:07→11:04)
[2019-03-08 05:10] LABS: Hematocrit 29.6 % (36-46); Hemoglobin 9.8 g/dL (12.0-16.0); Mean Corpuscular HGB Conc 33.2 % (30-36); Mean Corpuscular Volume 99.5 fL (80-100); Platelet Count 187 X10^3/uL (150-400); Red Blood Cell Count 2.97 X10^6/uL (4.0-5.2); Red Cell Distribution Width 14.1 % (11.6-14.8); White Blood Cell Count 16.5 X10^3/uL (4.5-11.0)
[2019-03-08 05:22] LABS: BUN Creatinine Ratio 26.3 (6-22); Blood Urea Nitrogen 21 mg/dL (7-17); Calcium 8.2 mg/dL (8.4-10.2); Carbon Dioxide 22 mmol/L (22-32); Chloride 102 mmol/L (98-107); Estimated Glomerular Filt Rate > 60.0 mL/min (>60); Glucose 211 mg/dL (80-110); HEMOLYSIS < 15 (0-50); Magnesium 1.6 mg/dL (1.6-2.3); Potassium 4.4 mmol/L (3.4-5.1); Sodium 135 mmol/L (137-145)
--- NOTE | 2019-03-08 08:33 | P.PN_ITS ---
Subjective Date Patient Seen: 03/08/19 Time Patient Seen: 08:32 Interval history: POD 1 s/p open reduction internal fixation left proximal femur fracture with Dr. Baer. Her pain is well controlled. She is resting comfortably. She has ASA and SCDs for VTE prophylaxis. Exam Vital Signs (past 8 hours): - 03/08/19 00:40 03/08/19 01:10 03/08/19 03:22 Temperature 97.7 F 97.6 F 97.7 F Pulse Rate 87 95 H 96 H Respiratory Rate 18 18 18 Blood Pressure 113/60 111/60 112/68 Pulse Oximetry 97 97 97 Oxygen Delivery Method Room Air Oxygen Flow Rate 2 Narrative Exam Narrative: Patient lying in bed in NAD. She is alert and oriented X3. Dressing on left hip is CDI. Calves are soft, compressible, and nontender bilaterally. SILT throughout BLEs. She is able to actively dorsiflex and plantarflex. Objective Labs Result Diagrams: 03/08/19 04:55 03/08/19 04:55 Labs: Laboratory Results - last 24 hr 03/07/19 03/07/19 03/08/19 15:19 15:19 04:55 WBC 11.1 H 16.5 H RBC 4.01 2.97 L Hgb 13.2 9.8 L Hct 38.8 29.6 L MCV 96.7 99.5 MCH 32.9 33.0 MCHC 34.1 33.2 RDW 14.1 14.1 Plt Count 246 187 Neut % (Auto) 78.5 H Lymph % (Auto) 15.4 L [place] % (Auto) 4.2 Eos % (Auto) 0.6 L Baso % (Auto) 1.3 Neut # (Auto) 8700 H Lymph # (Auto) 1700 [place] # (Auto) 500 Eos # (Auto) 100 Baso # (Auto) 100 Sodium 135 L Potassium 4.2 Chloride 102 Carbon Dioxide 19 L BUN 16 Creatinine 0.80 Estimated GFR > 60.0 BUN/Creatinine Ratio 20.0 Glucose 126 H Calcium 9.4 Magnesium Total Bilirubin 0.9 AST 36 ALT 23 Alkaline Phosphatase 59 Total Creatine Kinase 137 H CK-MB (CK-2) 1.09 CK-MB (CK-2) Rel Index 0.8 L Troponin I 0.025 Total Protein 7.1 Albumin 4.1 Globulin 3.0 Albumin/Globulin Ratio 1.4 03/08/19 04:55 WBC RBC Hgb Hct MCV MCH MCHC RDW Plt Count Neut % (Auto) Lymph % (Auto) [place] % (Auto) Eos % (Auto) Baso % (Auto) Neut # (Auto) Lymph # (Auto) [place] # (Auto) Eos # (Auto) Baso # (Auto) Sodium 135 L Potassium 4.4 Chloride 102 Carbon Dioxide 22 BUN 21 H Creatinine 0.80 Estimated GFR > 60.0 BUN/Creatinine Ratio 26.3 H Glucose 211 H Calcium 8.2 L Magnesium 1.6 Total Bilirubin AST ALT Alkaline Phosphatase Total Creatine Kinase CK-MB (CK-2) CK-MB (CK-2) Rel Index Troponin I Total Protein Albumin Globulin Albumin/Globulin Ratio Assessment & Plan Post-op (1) Closed left hip fracture: (2) S/P ORIF (open reduction internal fixation) fracture: Postoperative Procedures Operation Date: 03/07/19 17:30 Actual Procedures Side Surgeon p ORIF Hip/Intramedullary Hip Screw Linda Baer MD She will mobilize with PT. Partial weight-bearing on the left lower extremity 25-50 lb at max. Continue pain management. Continue ASA for VTE prophylaxis. DC per hospitalist team once medically stable.
[2019-03-08] MEDS: DOCUSATE 100 MG CAPSULE PO ×2 (09:30→20:12)
[2019-03-08] MEDS: ASPIRIN EC 81 MG TABLET PO ×2 (09:30→20:12)
[2019-03-08] MEDS: HYDROCODONE/ACET 5/325 TABLET 1 TAB PO ×3 (09:33→20:12)
--- NOTE | 2019-03-08 10:10 | PC.NURSE ---
Addendum entered by Mari Quach R.N. 03/08/19 11:33: [employer] - advised Josselin DIEZ again that there is a collection of serosang fluid in the aquacell, she states that specifically didn't want change today. Addendum entered by Mari Quach R.N. 03/08/19 11:19: MS/PAIN - phys therapy in, pt sat dangle position, w/fww, stood and bedside and became lightheaded and had onset nausea, bp decr to 96/55, and p 115, ret to supine position, bp returned to 146/61, p 83, given 4mg iv zofran, discussed pain mgt with pt, declines any addl medications. Addendum entered by Mari Quach R.N. 03/08/19 11:16: [employer] - discussed proximal saturation of aquacell dsg, within margins, see serosang collection with Josselin DIEZ and this am, MD prefers to not change now and new order to change aquacell in am. Original Note: AM NOTE - pt is alert, visiting with dtr at bedside, states no pain unless I move, discussed pain mgt, medications, pt reluctant to take tylenol, does not want the 975mg dose, prefers her full dose ASA, Dr. Liao in to explain need to limit ASA post op and that pt will receive the low dose for clot prevention, discussed pain mgt and pt agrees to [place] tab, pt follows her own restricted type diet and refused breakfast, discussed pain medications and need for have something in her stomach prior to admin and did drink x2 cartons milk, had dietary in so pt can order her meal for lunch, given norco 5/325mg tab after, 02 sat 99% 2L, removed and pt 02 sat remained 96% and greater, pt dtr had brought her meds this am and pt states she took her own pills this am, discussed medications with pt and , and meds ordered, bp was in 143/77, p80 this am, advised pt to send her own meds home with dtr, [place] w/clear yellow urine.
--- NOTE | 2019-03-08 10:35 | PT.IIE ---
Current Diagnoses Fracture of unspecified part of neck of left femur, initial encounter for closed fracture (03/07/19) Personal history of (healed) traumatic fracture (03/07/19) Presence of other bone and tendon implants (03/07/19) Surgery Performed Operation Date: 03/07/19 17:30 Actual Procedures p ORIF Hip/Intramedullary Hip Screw - Linda Baer MD Surgical History (Last Updated 03/08/19 @ 00:40 by ANDRES Dutta) History of myomectomy (Acute) History of thyroidectomy Medical History (Last Updated 03/08/19 @ 00:39 by ANDRES Dutta) Hypertension (Acute) Thyroid cancer (Acute) Hypothyroid (Acute) Physical Therapy Inpatient Evaluation/Re-Eval M1 PT/OT-IP Prior Functional Status Start: 03/08/19 12:46 Freq: NEEDED Status: Active Protocol: Document 03/08/19 10:35 AB (Rec: 03/08/19 13:06 AB [id number]) Medical Review Prior Functional Status Medical History Reviewed Yes Communication able to make needs known Mobility and Gait pt stated that she is independent with all mobilities and ambulation without AD Social History Household Members none Living Arrangements House Number of Floors (Floors) Two Floors Number of Stairs To Enter/Railing? 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 stated that her friend can stay with her to assist her as needed M2 PT-IP Current Condition Start: 03/08/19 12:46 Freq: NEEDED Status: Active Protocol: Document 03/08/19 10:35 AB (Rec: 03/08/19 13:06 AB [id number]) Physical Therapy Current Condition Current Condition Evaluation Date 03/08/19 Treatment Diagnosis s/p L hip fx s/p ORIF; difficulty in walking Onset Date 03/07/19 Weight Bearing Status Weight Bearing Status Touch Down Weight Bearing Allowed Weight Bearing Amount (enter % LLE TDWB: per ortho doctor's or #) (%) note: 25-50# max M3 PT-IP Subjective Start: 03/08/19 12:46 Freq: NEEDED Status: Active Protocol: Document 03/08/19 10:35 AB (Rec: 03/08/19 13:06 [id number]) Subjective Physical Therapy Visit Type Type Initial Evaluation Visit Start Time 10:35 Visit Stop Time 11:17 Total Visit Minutes 42 Number of RADIAGRAPH OPERATOR Visits 0 Physical Therapy Visit Comments Patient Comments pt agreeable to do PT Therapy Pain Assessment Pain When Pain Assessed During Mobility Pain Present Pain Present Pain Reported Location Left Hip Intensity 8 Pain Behaviors Guarding [place] Pain Management Techniques Re-positioning Timing of Activity with Medications M4 PT-IP Mobility and Gait Start: 03/08/19 12:46 Freq: NEEDED Status: Active Protocol: Document 03/08/19 10:35 AB (Rec: 03/08/19 13:06 [id number]) PT-Bed Mobility Assessment Supine to Sit Supine to Sit Moderate Assistance Sit to Supine Sit to Supine Moderate Assistance PT-Transfer Assessment Sit to and From Stand Sit to and from Stand Moderate Assistance 1 Person Assistance Use of Upper Extremities Equipment Transfer Assistive Device Gait Belt Front Wheeled Walker Orthotic/Prosthetic Devices or Brace: No Comments Mobility Comments BP supine: 117/53. pt completed supine to sit mod A and cues. pt was able to sit on EOB SBA. instructed pt on how to do sit<>stand while maintaining weight bearing restriction. pt completed sit to stand mod A and max cues. pt was able to stand ~ 10 sec mod A and cues and stated that she has to sit back down. pt c/o nausea. BP: 96/55. pt requested to lay back in bed and completed sit to supine mod A and cues. positioned pt in bed. BP checked again: 146/61. nurse aware of BP Gait Assessment Comments Gait Comments unable at this time PT-Balance Assessment Sitting Balance and Reactions Static Sitting Balance Ability Good Dynamic Sitting Balance Ability Good Standing Balance and Reactions Static Standing Balance Ability Fair Dynamic Standing Balance Ability Poor Device Used FWW M5 PT-IP Objective Assessments Start: 03/08/19 12:46 Freq: NEEDED Status: Active Protocol: Document 03/08/19 10:35 AB (Rec: 03/08/19 13:06 [id number]) Orientation Orientation/Cognition Level of Alertness Alert Orientation Name Place Situation Safety Awareness Decreased Safety Awareness Strength Lower Extremity Strength Assessment Left Impaired Hip 3-/5 Knee 3+/5 Coordination Assessment Gross Coordination Gross Coordination WNL Sensation Assessment Sensation Gross Sensation WNL Muscle Tone Muscle Tone WNL Yes M6 PT-IP Treatment Start: 03/08/19 12:46 Freq: NEEDED Status: Active Protocol: Document 03/08/19 10:35 AB (Rec: 03/08/19 13:06 AB [id number]) Physical Therapy Treatment Exercises Exercises Ankle Pumps Heel Slides Education Education Provided Precautions Weight Bearing Status Post-Op Packet Safety M7 PT-IP Assessment and Plan Start: 03/08/19 12:46 Freq: NEEDED Status: Active Protocol: Document 03/08/19 10:35 AB (Rec: 03/08/19 13:06 AB [id number]) PT Summary Assessment and Plan Potential Rehabilitation Potential Fair Status of Condition at Evaluation Evolving Summary Impairments Pain ROM Strength Balance Coordination Bed Mobility Transfers Gait Activity Tolerance Assessment Summary pt unable to tolerate much activity this morning with decrease in BP with standing. pt requiring mod A with bed mobility and sit to stand and unable to ambulate at this time. pt also has LLE weight bearing restriction affecting mobility. pt will require SNF rehab at this time to improve strength and functional independence. Goals Bed Mobility Goal Standby Assistance Transfer Goal Standby Assistance Front Wheeled Walker Gait Goal Standby Assistance Front Wheel Walker Gait Distance 50 Days to Meet Goals 5 Frequency of Treatment Frequency Of Treatment Twice a Day Treatment Plan Physical Therapy Treatment Plan Bed Mobility Training Transfer Training Gait Training Therapeutic Exercise Balance Retraining Post Op Education Discharge Planning Hot or Cold Pack Neuromuscular Re-ed Coordination Retraining Manual Therapy Recommendations To Nursing Amount of Assist Needed PT/OT Assist Only Discharge Recommendations PT Discharge Recommendations SNF Rehab
--- NOTE | 2019-03-08 10:56 | P.PN_ITS ---
Subjective Date Patient Seen: 03/08/19 Time Patient Seen: 10:43 Interval history: Follow-up on left intertrochanteric fracture status post repair, as well as weakness. Patient seen at bedside. She is doing well after the procedure. She has pain when moving her left lower extremity however no pain while lying still. Patient denies any nausea or vomiting at this time. Denies any abdominal pain. No acute overnight events. Exam Vital Signs (past 8 hours): - 03/08/19 03:22 03/08/19 07:39 Temperature 97.7 F 97.4 F L Pulse Rate 96 H 84 Respiratory Rate 18 16 Blood Pressure 112/68 143/77 H Pulse Oximetry 97 99 Oxygen Delivery Method Room Air Oxygen Flow Rate 2 Narrative Exam Narrative: General: No acute distress, A/O x3 HEENT: Normocephalic. Mild swelling over the left upper orbital ridge, without erythema or abrasions. PERRLA and EOMI bilaterally Neck: Supple, no LAD or JVD. Well-healed surgical scar in the right side of the neck. CV: Regular rate rhythm at this time, no murmurs or gallops appreciated Respiratory: Clear to auscultation in all lung pinon, no wheezing or crackles appreciated GI: Positive bowel sounds in all 4 quadrants, no tenderness to palpation, no organomegaly Extremities: Surgical dressings present in the left hip area, no bloody drainage at this time Neuro: No focal deficits, AO x3 Psych: Alert and oriented. Appropriate mood and affect, able to make her own decisions Skin: Resolving ecchymosis of right medial forearm Objective Labs Result Diagrams: 03/08/19 04:55 03/08/19 04:55 Labs: Laboratory Results - last 24 hr 03/07/19 03/07/19 03/08/19 15:19 15:19 04:55 WBC 11.1 H 16.5 H RBC 4.01 2.97 L Hgb 13.2 9.8 L Hct 38.8 29.6 L MCV 96.7 99.5 MCH 32.9 33.0 MCHC 34.1 33.2 RDW 14.1 14.1 Plt Count 246 187 Neut % (Auto) 78.5 H Lymph % (Auto) 15.4 L [place] % (Auto) 4.2 Eos % (Auto) 0.6 L Baso % (Auto) 1.3 Neut # (Auto) 8700 H Lymph # (Auto) 1700 [place] # (Auto) 500 Eos # (Auto) 100 Baso # (Auto) 100 Sodium 135 L Potassium 4.2 Chloride 102 Carbon Dioxide 19 L BUN 16 Creatinine 0.80 Estimated GFR > 60.0 BUN/Creatinine Ratio 20.0 Glucose 126 H Calcium 9.4 Magnesium Total Bilirubin 0.9 AST 36 ALT 23 Alkaline Phosphatase 59 Total Creatine Kinase 137 H CK-MB (CK-2) 1.09 CK-MB (CK-2) Rel Index 0.8 L Troponin I 0.025 Total Protein 7.1 Albumin 4.1 Globulin 3.0 Albumin/Globulin Ratio 1.4 03/08/19 04:55 WBC RBC Hgb Hct MCV MCH MCHC RDW Plt Count Neut % (Auto) Lymph % (Auto) [place] % (Auto) Eos % (Auto) Baso % (Auto) Neut # (Auto) Lymph # (Auto) [place] # (Auto) Eos # (Auto) Baso # (Auto) Sodium 135 L Potassium 4.4 Chloride 102 Carbon Dioxide 22 BUN 21 H Creatinine 0.80 Estimated GFR > 60.0 BUN/Creatinine Ratio 26.3 H Glucose 211 H Calcium 8.2 L Magnesium 1.6 Total Bilirubin AST ALT Alkaline Phosphatase Total Creatine Kinase CK-MB (CK-2) CK-MB (CK-2) Rel Index Troponin I Total Protein Albumin Globulin Albumin/Globulin Ratio Assessment & Plan Assessment & Plan narrative: 73yo F with PMH of Thyroid cancer and secondary hypothyroidism, HTN presented to ED after a ground level fall secondary to dizziness landing on her left hip sustaining an intertrochanteric fracture of the left proximal femur. Status post Open reduction and internal fixation of left proximal femur 1. Acute comminuted and angulated intertrochanteric fracture left hip, present on admission -status post open reduction internal fixation of left proximal femur -x-ray revealed fracture from the lesser to greater trochanter that is comminuted and angulated -as per Ortho, patient is to be partial weight-bearing on the left lower extremity approximately 25-50 lb. She is to continue aspirin for DVT prophylaxis -continue [place] as needed for pain control 2. Frequent falls, active -possibly due to dehydration from intermittent fasting and use of lisinopril- hydrochlorothiazide -patient has bruises in various stages of healing and endorses frequent falls occurring multiple times monthly, the last being 5 days ago -blood pressure currently on higher side and patient took her own home medications this morning -will resume patient's amlodipine and lisinopril-hydrochlorothiazide -will encourage p.o. hydration and monitor blood pressure closely -PT and OT to evaluate and treat. 3. Dizziness, resolved -likely dehydration induced from reduced p.o. intake and subsequent hydrochlorothiazide use -patient's blood pressure is elevated this morning, will resume home regimen and closely monitor of blood pressure -encourage p.o. hydration 4. Chronic hypertension, stable. -blood pressure on the higher side this morning -will resume patient's amlodipine and lisinopril-hydrochlorothiazide medications -patient is able to tolerate p.o., will stop IV fluids 5. Acquired hypothyroidism, chronic, presumed stable -continue levo Disposition: Patient is status post ORIF. She will continue to work with physical therapy and hopefully the condition will improve. P.o. intake and hydration is encouraged during this hospitalization to prevent any more dizziness and fall episodes.
[2019-03-08] MEDS: ONDANSETRON 4 MG/2 ML INJ IV (11:05)
[2019-03-08] MEDS: ONDANSETRON 4 MG ODT PO (14:24)
--- NOTE | 2019-03-08 15:42 | PT.IPTN ---
Current Diagnoses Fracture of unspecified part of neck of left femur, initial encounter for closed fracture (03/07/19) Personal history of (healed) traumatic fracture (03/07/19) Presence of other bone and tendon implants (03/07/19) Surgery Performed Operation Date: 03/07/19 17:30 Actual Procedures p ORIF Hip/Intramedullary Hip Screw - Linda Baer MD Physical Therapy Treatment Note M2 PT-IP Current Condition Start: 03/08/19 12:46 Freq: NEEDED Status: Active Protocol: Document 03/08/19 10:35 AB (Rec: 03/08/19 13:06 AB [id number]) Physical Therapy Current Condition Current Condition Evaluation Date 03/08/19 Treatment Diagnosis s/p L hip fx s/p ORIF; difficulty in walking Onset Date 03/07/19 Weight Bearing Status Weight Bearing Status Touch Down Weight Bearing Allowed Weight Bearing Amount (enter % LLE TDWB: per ortho doctor's or #) (%) note: 25-50# max M3 PT-IP Subjective Start: 03/08/19 12:46 Freq: NEEDED Status: Active Protocol: Document 03/08/19 15:34 SA (Rec: 03/08/19 15:42 SA [id number]) Subjective Physical Therapy Visit Type Type Treatment Note Visit Start Time 14:12 Visit Stop Time 14:40 Total Visit Minutes 28 Number of CUSTODIAL ENGINEER Visits 1 Physical Therapy Visit Comments Patient Comments Pt supine in bed and agreeable to PT, had pain medication about 1 hour previous. Patient Goals To get home. Therapy Pain Assessment Pain When Pain Assessed During Mobility Pain Present Pain Present Pain Reported Location Left Hip Intensity 6 Scale Used Numeric (1 - 10) Pain Behaviors Guarding [place]incing Pain Management Techniques Re-positioning Timing of Activity with Medications M4 PT-IP Mobility and Gait Start: 03/08/19 12:46 Freq: NEEDED Status: Active Protocol: Document 03/08/19 15:34 SA (Rec: 03/08/19 15:42 SA [id number]) PT-Bed Mobility Assessment Supine to Sit Supine to Sit Moderate Assistance Sit to Supine Sit to Supine Moderate Assistance Scooting Scooting to Edge of Bed Minimal Assistance Scooting Up and Down in Bed Minimal Assistance PT-Transfer Assessment Sit to and From Stand Sit to and from Stand Minimal Assistance 1 Person Assistance Use of Upper Extremities Equipment Transfer Assistive Device Gait Belt Front Wheeled Walker Orthotic/Prosthetic Devices or Brace: No Comments Mobility Comments BP sitting at EOB 107/62, standing 71/50 and supine in bed 133/85. Sit to stands from EOB with Min A and static standing to monitor BP with CGA. Lateral stepping/sliding of feet towards top of bed with CGA and cues for WBing precaution. Gait Assessment Comments Gait Comments Pt unable at this time. M5 PT-IP Objective Assessments Start: 03/08/19 12:46 Freq: NEEDED Status: Active Protocol: Document 03/08/19 10:35 AB (Rec: 03/08/19 13:06 AB [id number]) Orientation Orientation/Cognition Level of Alertness Alert Orientation Name Place Situation Safety Awareness Decreased Safety Awareness Strength Lower Extremity Strength Assessment Left Impaired Hip 3-/5 Knee 3+/5 Coordination Assessment Gross Coordination Gross Coordination WNL Sensation Assessment Sensation Gross Sensation WNL Muscle Tone Muscle Tone WNL Yes M6 PT-IP Treatment Start: 03/08/19 12:46 Freq: NEEDED Status: Active Protocol: Document 03/08/19 15:34 SA (Rec: 03/08/19 15:42 [id number]) Physical Therapy Treatment Exercises Exercises Ankle Pumps Gluteal Sets Heel Slides Education Education Provided Precautions Weight Bearing Status Post-Op Packet Safety Other Treatments Other Treatment Performed Review of LLE WBing precaution . M7 PT-IP Assessment and Plan Start: 03/08/19 12:46 Freq: NEEDED Status: Active Protocol: Document 03/08/19 15:34 SA (Rec: 03/08/19 15:42 [id number]) PT Summary Assessment and Plan Summary Assessment Summary Pt with c/o nausea with initial position changes that decreases with staying still, fluctuating BPs with mobility that limit patient's functional mobility. PT educated on WBing restriction. Frequency of Treatment Frequency Of Treatment Twice a Day Treatment Plan Physical Therapy Treatment Plan Bed Mobility Training Transfer Training Gait Training Therapeutic Exercise Balance Retraining Post Op Education Discharge Planning Hot or Cold Pack Neuromuscular Re-ed Coordination Retraining Manual Therapy Recommendations To Nursing Amount of Assist Needed PT/OT Assist Only Discharge Recommendations PT Discharge Recommendations SNF Rehab
--- NOTE | 2019-03-08 15:59 | CM.IDA ---
Initial DCP Assessment Note: Pt is a 73 yo female, resident of [place]. Pt POD#1 from open reduction of left hip fx sustained after GLF, surgery done by Dr Baer. PCP: Caprice Burrows Payer: [facility] Reviewed chart, pt discussed in multidisciplinary rounds; she will likely benefit from SNF unless pt able to progress towards DC home w/friend to assist, pt lives alone. 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 Attempted to meet w/pt multiple times today; pt either working w/therapy team or not feeling well. Will attempt assessment Monday to review DCP options w/pt. Meanwhile, requested that Stunt Man, Amada, fax a request to [facility] to begin for review for SNF auth. OT order placed. Likely this OT eval will not be available until Monday; unless OT Bri able to complete today. MEL Bishop Discharge Planning/Care Management CM Discharge Assessment Start: 03/08/19 15:48 Freq: Status: Active Protocol: Document 03/08/19 15:56 MERI (Rec: 03/08/19 15:59 [id number]) Discharge Planning Assessment Assigned Technical Business Systems Analyst MEL Daniels DPOA/Assigned Designee Name Gina ShaferWheat, allyssa Contact Information [phone] Advance Directives? No History Provided By Patient Medical Record Prior Living Arrangements House Household Members none Type of transporation used prior to Drives own vehicle admit Independent with ADL's Yes Is patient alert and oriented? Yes Patient/Family Preference Shelter Facility Barriers to Discharge Yes Comment Lives alone, needs assist Discharge Plan Shelter Facility Review Status In Process
[2019-03-09] VITALS (8 sets, daily range): BP systolic 103–128; BP diastolic 45–83; PULSE 79–85; RESP 16–20; TEMP 36.5–37.8; O2SAT 94–98
[2019-03-09 06:15] LABS: Add Manual Diff / Slide Review NO; Basophils Absolute Auto 0 /uL (0-100); Basophils Percent Auto 0.2 % (0-2); Eosinophils Absolute Auto 0 /uL (0-450); Hematocrit 22.3 % (36-46); Hemoglobin 7.5 g/dL (12.0-16.0); Lymphocytes Absolute Auto 2700 /uL (1100-4500); Lymphocytes Percent Auto 16.4 % (25-40); Mean Corpuscular HGB Conc 33.5 % (30-36); Mean Corpuscular Hemoglobin 33.2 PG (26-34); Mean Corpuscular Volume 99.1 fL (80-100); Monocytes Absolute Auto 900 /uL (0-900); Monocytes Percent Auto 5.6 % (3-14); Neutrophils Absolute Auto 13000 /uL (1500-7000); Neutrophils Percent Auto 77.8 % (50-75); Platelet Count 155 X10^3/uL (150-400); Red Blood Cell Count 2.25 X10^6/uL (4.0-5.2); Red Cell Distribution Width 14.3 % (11.6-14.8); White Blood Cell Count 16.8 X10^3/uL (4.5-11.0)
[2019-03-09] MEDS: LEVOTHYROXINE 75 MCG TABLET PO (06:28)
[2019-03-09 06:38] LABS: BUN Creatinine Ratio 28.9 (6-22); Blood Urea Nitrogen 26 mg/dL (7-17); Calcium 8.3 mg/dL (8.4-10.2); Carbon Dioxide 26 mmol/L (22-32); Chloride 99 mmol/L (98-107); Estimated Glomerular Filt Rate > 60.0 mL/min (>60); Glucose 99 mg/dL (80-110); HEMOLYSIS < 15 (0-50); Potassium 3.9 mmol/L (3.4-5.1); Sodium 131 mmol/L (137-145)
[2019-03-09 06:58] LABS: Vitamin D 25 Hydroxy (D3) 23.3 ng/mL (30.0-100.0)
[2019-03-09 07:12] LABS: Thyroid Stimulating Hormone 1.88 uIU/mL (0.47-4.68)
[2019-03-09] MEDS: ASPIRIN EC 81 MG TABLET PO ×2 (09:09→21:07)
[2019-03-09] MEDS: DOCUSATE 100 MG CAPSULE PO (09:09)
[2019-03-09] MEDS: HYDROCODONE/ACET 5/325 TABLET 1 TAB PO ×3 (09:11→17:08)
--- NOTE | 2019-03-09 09:56 | PM.PNPO.1 ---
Subjective Date Patient Seen: 03/09/19 Time Patient Seen: 09:57 Interval history: POD 2 s/p open reduction internal fixation left proximal femur fracture with Dr. Baer. Her pain is well controlled. Dressing was saturated this AM. H+H is low, platelets WNL. She has ASA and SCDs for VTE prophylaxis. Exam Vital Signs (past 8 hours): - 03/09/19 05:38 03/09/19 08:00 Temperature 98.8 F 100.0 F H Pulse Rate 84 82 Respiratory Rate 18 18 Blood Pressure 117/58 L 105/51 L Pulse Oximetry 96 97 Oxygen Delivery Method Room Air Oxygen Flow Rate 0 Narrative Exam Narrative: Patient lying in bed in no acute distress. Dressing removed that was saturated. There is no active drainage coming from wound. she is able to actively dorsiflex and plantar flex. Calves are soft, compressible, nontender bilaterally. pulses are symmetrical. Objective Labs Result Diagrams: 03/09/19 04:55 03/09/19 04:55 Labs: Laboratory Results - last 24 hr 03/09/19 03/09/19 03/09/19 04:55 04:55 04:55 WBC 16.8 H RBC 2.25 L Hgb 7.5 L Hct 22.3 L MCV 99.1 MCH 33.2 MCHC 33.5 RDW 14.3 Plt Count 155 Neut % (Auto) 77.8 H Lymph % (Auto) 16.4 L [place] % (Auto) 5.6 Eos % (Auto) 0.0 L Baso % (Auto) 0.2 Neut # (Auto) 18872 H Lymph # (Auto) 2700 [place] # (Auto) 900 Eos # (Auto) 0 Baso # (Auto) 0 Sodium 131 L Potassium 3.9 Chloride 99 Carbon Dioxide 26 BUN 26 H Creatinine 0.90 Estimated GFR > 60.0 BUN/Creatinine Ratio 28.9 H Glucose 99 D Calcium 8.3 L 25-OH Vitamin D Total TSH 1.88 03/09/19 04:55 WBC RBC Hgb Hct MCV MCH MCHC RDW Plt Count Neut % (Auto) Lymph % (Auto) [place] % (Auto) Eos % (Auto) Baso % (Auto) Neut # (Auto) Lymph # (Auto) [place] # (Auto) Eos # (Auto) Baso # (Auto) Sodium Potassium Chloride Carbon Dioxide BUN Creatinine Estimated GFR BUN/Creatinine Ratio Glucose Calcium 25-OH Vitamin D Total 23.3 L TSH Assessment & Plan Post-op (1) S/P ORIF (open reduction internal fixation) fracture: Postoperative Procedures Operation Date: 03/07/19 17:30 Actual Procedures Side Surgeon p ORIF Hip/Intramedullary Hip Screw Linda Baer MD Continue to mobilize with physical therapy. Partial weight-bearing on the left lower extremity 25-50 lb at max. Medicine will continue to manage and discharge per Medicine. She will likely need group home facility.
--- NOTE | 2019-03-09 10:23 | PC.NURSE ---
Addendum entered by Mari Quach R.N. 03/09/19 14:55: CT/PAIN/BLOOD - after completion CT scan, typed and crossed for 1 unit, consent signed and transfusion started, given 1 norco 5/325 tab after lunch for pain mgt and providing effective relief. Original Note: AM NOTE - pt is alert, states pain 2-3 on scale 0/10 while not moving, aquacell dsgs have leaked and are saturated, with assist from Josselin DIEZ, removed, cleaned site with NS, some slight oozing serosang at prox end, replaced with new aquacell, pt was given norco 5/325mg tab after breakfast for mobilization, bp meds held this am, discussed constipation and narcotics, accepted stool softener, no other laxatives, bs dim, clear, ra 96%, brought in IS and pt demonstrated correct use.
--- NOTE | 2019-03-09 11:14 | PT.IPTN ---
Current Diagnoses Fracture of unspecified part of neck of left femur, initial encounter for closed fracture (03/07/19) Personal history of (healed) traumatic fracture (03/07/19) Presence of other bone and tendon implants (03/07/19) Surgery Performed Operation Date: 03/07/19 17:30 Actual Procedures p ORIF Hip/Intramedullary Hip Screw - Linda Baer MD Physical Therapy Treatment Note M2 PT-IP Current Condition Start: 03/08/19 12:46 Freq: NEEDED Status: Active Protocol: Document 03/08/19 10:35 AB (Rec: 03/08/19 13:06 AB [id number]) Physical Therapy Current Condition Current Condition Evaluation Date 03/08/19 Treatment Diagnosis s/p L hip fx s/p ORIF; difficulty in walking Onset Date 03/07/19 Weight Bearing Status Weight Bearing Status Touch Down Weight Bearing Allowed Weight Bearing Amount (enter % LLE TDWB: per ortho doctor's or #) (%) note: 25-50# max M3 PT-IP Subjective Start: 03/08/19 12:46 Freq: NEEDED Status: Active Protocol: Document 03/09/19 11:13 AB (Rec: 03/09/19 11:14 AB [id number]) Subjective Physical Therapy Visit Type Notes talked to pt and pt stated that she wanted to rest at this time. pt will also be getting blood transfusion later today per nursing. will f/u this afternoon. M4 PT-IP Mobility and Gait Start: 03/08/19 12:46 Freq: NEEDED Status: Active Protocol: Document 03/08/19 15:34 SA (Rec: 03/08/19 15:42 SA [id number]) PT-Bed Mobility Assessment Supine to Sit Supine to Sit Moderate Assistance Sit to Supine Sit to Supine Moderate Assistance Scooting Scooting to Edge of Bed Minimal Assistance Scooting Up and Down in Bed Minimal Assistance PT-Transfer Assessment Sit to and From Stand Sit to and from Stand Minimal Assistance 1 Person Assistance Use of Upper Extremities Equipment Transfer Assistive Device Gait Belt Front Wheeled Walker Orthotic/Prosthetic Devices or Brace: No Comments Mobility Comments BP sitting at EOB 107/62, standing 71/50 and supine in bed 133/85. Sit to stands from EOB with Min A and static standing to monitor BP with CGA. Lateral stepping/sliding of feet towards top of bed with CGA and cues for WBing precaution. Gait Assessment Comments Gait Comments Pt unable at this time. M5 PT-IP Objective Assessments Start: 03/08/19 12:46 Freq: NEEDED Status: Active Protocol: Document 03/08/19 10:35 AB (Rec: 03/08/19 13:06 AB [id number]) Orientation Orientation/Cognition Level of Alertness Alert Orientation Name Place Situation Safety Awareness Decreased Safety Awareness Strength Lower Extremity Strength Assessment Left Impaired Hip 3-/5 Knee 3+/5 Coordination Assessment Gross Coordination Gross Coordination WNL Sensation Assessment Sensation Gross Sensation WNL Muscle Tone Muscle Tone WNL Yes M6 PT-IP Treatment Start: 03/08/19 12:46 Freq: NEEDED Status: Active Protocol: Document 03/08/19 15:34 SA (Rec: 03/08/19 15:42 SA [id number]) Physical Therapy Treatment Exercises Exercises Ankle Pumps Gluteal Sets Heel Slides Education Education Provided Precautions Weight Bearing Status Post-Op Packet Safety Other Treatments Other Treatment Performed Review of LLE WBing precaution . M7 PT-IP Assessment and Plan Start: 03/08/19 12:46 Freq: NEEDED Status: Active Protocol: Document 03/08/19 15:34 SA (Rec: 03/08/19 15:42 SA [id number]) PT Summary Assessment and Plan Summary Assessment Summary Pt with c/o nausea with initial position changes that disapates with staying still, fluctuating BPs with mobility that limit patient's functional mobility. PT educted on WBing resistiction. Frequency of Treatment Frequency Of Treatment Twice a Day Treatment Plan Physical Therapy Treatment Plan Bed Mobility Training Transfer Training Gait Training Therapeutic Exercise Balance Retraining Post Op Education Discharge Planning Hot or Cold Pack Neuromuscular Re-ed Coordination Retraining Manual Therapy Recommendations To Nursing Amount of Assist Needed PT/OT Assist Only Discharge Recommendations PT Discharge Recommendations SNF Rehab
--- NOTE | 2019-03-09 11:40 | DI.CT.S_ITS ---
PROCEDURE: CT LE LT W CON INDICATIONS: post op bleeding ORIF l hip TECHNIQUE: Noncontrast 3 mm axial sections acquired through the bony pelvis. Additional 3 mm axial sections acquired through the symptomatic hip joint, with coronal and sagittal reformats. COMPARISON: [facility], CR, XR HIP W PEL IF DONE LT 2V, 03/07/2019, 23:35. [facility], CR, XR HIP W PEL IF DONE LT 2V, 03/07/2019, 19:12. [facility], CR, XR HIP W PEL IF DONE LT 2V, 03/07/2019, 14:53. [facility], CT, ABDOMEN/PELVIS WITH CONTRAST, 08/27/2013, 21:54. FINDINGS: Image quality: Excellent. Bones: Left proximal femur postoperative hardware is seen. No significant abnormality of the hardware is seen. The fracture fragments are better aligned than on the preoperative study. However, there is an avulsed and rotated avulsion fracture of the lesser tuberosity. Soft tissues: There is expected amount of soft tissue gas and soft tissue stranding of the soft tissues only can be seen. No localized/loculated soft tissue hematoma is seen. Skin anna are seen. A Lopez catheter is seen, which decompresses the urinary bladder. There is a low-density cuboid appearing focus involving the right vaginal apex. Please correlate with known history. This patient is status post hysterectomy. No adnexal masses are seen. IMPRESSION: Unremarkable postoperative hardware. Improved anatomic alignment of the fracture fragments. There is an avulsed and rotated fracture of the lesser tuberosity. An expected amount of soft tissue gas, soft tissue swelling, and soft tissue hematoma can be seen. No localized or loculated hematoma is seen. If further evaluation of the arterial structures is clinically desired, please consider a dedicated CT angiogram for further evaluation. Incidental note is made of: Diverticulosis is seen, without findings of active diverticulitis. Apparent pessary at the vaginal apex Hysterectomy Lopez catheter Dictated by: Lucien Tinsley M.D. on 03/09/2019 at 11:43 Approved by: Lucien Tinsley M.D. on 03/09/2019 at 11:50
[2019-03-09] MEDS: ASCORBIC ACID 500 MG TABLET PO ×2 (13:15→21:07)
--- NOTE | 2019-03-09 13:45 | PM.PN.1 ---
Subjective Date Patient Seen: 03/09/19 Time Patient Seen: 13:47 Interval history: Follow-up on left intertrochanteric fracture status post repair, as well as weakness. Patient seen at bedside. She is doing much better today. She did have a lot of pain yesterday and was there for fall and able to ambulate with physical therapy much. She was also complaining of mild dizziness at that time. However, no acute overnight events. Today patient is feeling much better and the pain is improving. Patient's hemoglobin has dropped to 7.5 this morning. Exam Vital Signs (past 8 hours): - 03/09/19 08:00 03/09/19 11:40 Temperature 100.0 F H 97.8 F Pulse Rate 82 85 Respiratory Rate 18 18 Blood Pressure 105/51 L 110/51 L Pulse Oximetry 97 98 Oxygen Delivery Method Room Air Oxygen Flow Rate 0 Narrative Exam Narrative: General: No acute distress, A/O x3 HEENT: Normocephalic. Mild swelling over the left upper orbital ridge, without erythema or abrasions. PERRLA and EOMI bilaterally Neck: Supple, no LAD or JVD. Well-healed surgical scar in the right side of the neck. CV: Regular rate rhythm at this time, no murmurs or gallops appreciated Respiratory: Clear to auscultation in all lung pinon, no wheezing or crackles appreciated GI: Positive bowel sounds in all 4 quadrants, no tenderness to palpation, no organomegaly Extremities: Surgical dressings present in the left hip area, no bloody drainage at this time Neuro: No focal deficits, AO x3 Psych: Alert and oriented. Appropriate mood and affect, able to make her own decisions Skin: Resolving ecchymosis of right medial forearm Objective Labs Result Diagrams: 03/09/19 04:55 03/09/19 04:55 Labs: Laboratory Results - last 24 hr 03/09/19 03/09/19 03/09/19 04:55 04:55 04:55 WBC 16.8 H RBC 2.25 L Hgb 7.5 L Hct 22.3 L MCV 99.1 MCH 33.2 MCHC 33.5 RDW 14.3 Plt Count 155 Neut % (Auto) 77.8 H Lymph % (Auto) 16.4 L [place] % (Auto) 5.6 Eos % (Auto) 0.0 L Baso % (Auto) 0.2 Neut # (Auto) 10060 H Lymph # (Auto) 2700 [place] # (Auto) 900 Eos # (Auto) 0 Baso # (Auto) 0 Sodium 131 L Potassium 3.9 Chloride 99 Carbon Dioxide 26 BUN 26 H Creatinine 0.90 Estimated GFR > 60.0 BUN/Creatinine Ratio 28.9 H Glucose 99 D Calcium 8.3 L 25-OH Vitamin D Total TSH 1.88 Blood Type Antibody Screen Crossmatch 03/09/19 03/09/19 04:55 12:25 WBC RBC Hgb Hct MCV MCH MCHC RDW Plt Count Neut % (Auto) Lymph % (Auto) [place] % (Auto) Eos % (Auto) Baso % (Auto) Neut # (Auto) Lymph # (Auto) [place] # (Auto) Eos # (Auto) Baso # (Auto) Sodium Potassium Chloride Carbon Dioxide BUN Creatinine Estimated GFR BUN/Creatinine Ratio Glucose Calcium 25-OH Vitamin D Total 23.3 L TSH Blood Type B Positive Antibody Screen Negative Crossmatch See Detail Assessment & Plan Assessment & Plan narrative: 73yo F with PMH of Thyroid cancer and secondary hypothyroidism, HTN presented to ED after a ground level fall secondary to dizziness landing on her left hip sustaining an intertrochanteric fracture of the left proximal femur. Status post Open reduction and internal fixation of left proximal femur. 1. Acute comminuted and angulated intertrochanteric fracture left hip, present on admission -status post open reduction internal fixation of left proximal femur -x-ray revealed fracture from the lesser to greater trochanter that is comminuted and angulated -as per Ortho, patient is to be partial weight-bearing on the left lower extremity approximately 25-50 lb. She is to continue aspirin for DVT prophylaxis -continue Archbold as needed for pain control 2. Acute anemia - Possibly due to blood loss from procedure vs hemodilutinal vs other - Hb 13.2->9.8->7.5 this am - MCV 99.1 - CT L hip performed: An expected amount of soft tissue gas, soft tissue swelling, and soft tissue hematoma can be seen. No localized or loculated hematoma is seen. - Given the rate of hb drop and symptoms of dizziness, will transfuse patient 1U PRBC and follow up on Hb repeat after - Will get stool guiac to rule out GI bleed - Monitor H/H 3. Frequent falls, active -possibly due to dehydration from intermittent fasting and use of lisinopril-hydrochlorothiazide -patient has bruises in various stages of healing and endorses frequent falls occurring multiple times monthly, the last being 5 days ago -blood pressure currently on higher side and patient took her own home medications this morning -continue patient's amlodipine and lisinopril but hold HCTZ given concern for dehydration -will encourage p.o. hydration and monitor blood pressure closely -PT and OT to evaluate and treat. 4. Dizziness, ongoing -likely dehydration induced from reduced p.o. intake and subsequent hydrochlorothiazide use. Possible GI bleed? -patient's blood pressure now stabilized -continue home regimen other than HCTZ and closely monitor of blood pressure -encourage p.o. hydration 5. Chronic hypertension, stable. -blood pressure on the higher side this morning -will resume patient's amlodipine and lisinopril medications. Hold HCTZ -patient is able to tolerate p.o., will stop IV fluids 6. Acquired hypothyroidism, chronic, presumed stable -continue levo Disposition: Patient is status post ORIF. Hemoglobin dropped overnight, and patient is therefore getting transfused 1 unit packed red blood cells. Possible rehab within the next few days.
--- NOTE | 2019-03-09 13:55 | PT.IPTN ---
Current Diagnoses Fracture of unspecified part of neck of left femur, initial encounter for closed fracture (03/07/19) Personal history of (healed) traumatic fracture (03/07/19) Presence of other bone and tendon implants (03/07/19) Surgery Performed Operation Date: 03/07/19 17:30 Actual Procedures p ORIF Hip/Intramedullary Hip Screw - Linda Baer MD Physical Therapy Treatment Note M2 PT-IP Current Condition Start: 03/08/19 12:46 Freq: NEEDED Status: Active Protocol: Document 03/08/19 10:35 AB (Rec: 03/08/19 13:06 AB [id number]) Physical Therapy Current Condition Current Condition Evaluation Date 03/08/19 Treatment Diagnosis s/p L hip fx s/p ORIF; difficulty in walking Onset Date 03/07/19 Weight Bearing Status Weight Bearing Status Touch Down Weight Bearing Allowed Weight Bearing Amount (enter % LLE TDWB: per ortho doctor's or #) (%) note: 25-50# max M3 PT-IP Subjective Start: 03/08/19 12:46 Freq: NEEDED Status: Active Protocol: Document 03/09/19 13:53 AB (Rec: 03/09/19 13:54 AB [id number]) Subjective Physical Therapy Visit Type Notes nurse stated that they will start pt's blood transfusion. talked to pt and pt requested not to do PT at this time but agreed to do PT tomorrow.
--- NOTE | 2019-03-09 14:08 | PC.NURSE ---
BLOOD TRANSF: FRITZ JAMIL CHECKED PRBC INFUSION W/ THIS WHEEL ALIGNER. CO-SIGN DID NOT PROPAGATE USUAL.
--- NOTE | 2019-03-09 15:47 | CM.DPNOTE ---
Met w/pt today to review DCP options. Pt wants 1. [facility] 2. [facility]. Explained process for SNF auth through [facility]. Clinical faxed yesterday, no updated therapy notes today since pt's BP has been low and she is receiving blood transfusion today. Attempted to call both [facility] Monie [place] (w/e [facility] staff say she is working today) P# [phone], had to . Also had to for Darline at [facility] requesting she review pt for referral and possible admission Monday or Monday. PASRR completed. Addtl. coordination needed, [employer] team following closely. MEL Bishop
--- NOTE | 2019-03-09 17:45 | PC.NURSE ---
Addendum entered by Tosin Gonzáles R.N. 03/09/19 18:19: 1800 H and H 9.0 and 26.7. Hct is greater than 23 so will not transfuse any more blood this evening shift as per Dr. Baer's orders. Original Note: Phone call from Dr. Baer @ beginning of shift. States CT normal and orders H & H one hour following transfusion of unit of blood. Orders obtained to given second unit of blood tonight if pt's hematocrit less than 23. Recheck H & H in a.m. Dr. Liao in house and was informed of these orders. Unit of blood complete, pt awake, alert and taking evening meal. Lab notified of H & H to be drawn @ 1800.
[2019-03-09 18:12] LABS: Hematocrit 26.7 % (36-46)
[2019-03-09] MEDS: SODIUM CHLORIDE 0.9% FLUSH 10 ML IV (21:08)
[2019-03-10] VITALS (8 sets, daily range): BP systolic 103–153; BP diastolic 54–63; PULSE 71–90; RESP 16–20; TEMP 36.3–37.7; O2SAT 93–99
[2019-03-10 05:59] LABS: Add Manual Diff / Slide Review NO; Basophils Absolute Auto 100 /uL (0-100); Basophils Percent Auto 0.6 % (0-2); Eosinophils Absolute Auto 100 /uL (0-450); Eosinophils Percent Auto 1.2 % (2-4); Hematocrit 24.5 % (36-46); Hemoglobin 8.5 g/dL (12.0-16.0); Lymphocytes Absolute Auto 2200 /uL (1100-4500); Lymphocytes Percent Auto 20.2 % (25-40); Mean Corpuscular HGB Conc 34.6 % (30-36); Mean Corpuscular Hemoglobin 33.7 PG (26-34); Mean Corpuscular Volume 97.5 fL (80-100); Monocytes Absolute Auto 800 /uL (0-900); Monocytes Percent Auto 7.3 % (3-14); Neutrophils Absolute Auto 7700 /uL (1500-7000); Neutrophils Percent Auto 70.7 % (50-75); Platelet Count 138 X10^3/uL (150-400); Red Blood Cell Count 2.51 X10^6/uL (4.0-5.2); Red Cell Distribution Width 14.5 % (11.6-14.8); White Blood Cell Count 10.8 X10^3/uL (4.5-11.0)
[2019-03-10 06:03] LABS: Blood Urea Nitrogen 18 mg/dL (7-17); Calcium 8.2 mg/dL (8.4-10.2); Carbon Dioxide 28 mmol/L (22-32); Chloride 101 mmol/L (98-107); Estimated Glomerular Filt Rate > 60.0 mL/min (>60); Glucose 94 mg/dL (80-110); HEMOLYSIS < 15 (0-50); Potassium 3.8 mmol/L (3.4-5.1); Sodium 134 mmol/L (137-145)
[2019-03-10] MEDS: DOCUSATE 100 MG CAPSULE PO ×2 (08:38→20:04)
[2019-03-10] MEDS: AMLODIPINE 5 MG TABLET PO (08:38)
[2019-03-10] MEDS: POLYETHYLENE GLYCOL 3350 17 GM POWD.PACK PO (08:38)
[2019-03-10] MEDS: SODIUM CHLORIDE 0.9% FLUSH 10 ML IV ×3 (08:38→17:33)
[2019-03-10] MEDS: ASCORBIC ACID 500 MG TABLET PO ×2 (08:38→20:04)
[2019-03-10] MEDS: ASPIRIN EC 81 MG TABLET PO ×2 (08:38→20:04)
[2019-03-10] MEDS: LISINOPRIL 20 MG TABLET PO (08:38)
[2019-03-10] MEDS: LEVOTHYROXINE 75 MCG TABLET PO (08:38)
[2019-03-10] MEDS: HYDROCODONE/ACET 5/325 TABLET 1 TAB PO ×4 (08:40→22:16)
--- NOTE | 2019-03-10 10:17 | P.PN_ITS ---
Subjective Date Patient Seen: 03/10/19 Time Patient Seen: 10:16 Interval history: Hip stable postop ORIF. Progress as expected. Exam Vital Signs (past 8 hours): - 03/10/19 05:00 03/10/19 08:10 Temperature 99.4 F 98.6 F Pulse Rate 88 78 Respiratory Rate 18 16 Blood Pressure 131/59 L 153/59 H Pulse Oximetry 96 98 Oxygen Delivery Method Room Air Oxygen Flow Rate 0 Narrative Exam Narrative: Dressing dry and intact. Distal neurovascular exam grossly intact. Objective Labs Result Diagrams: 03/10/19 04:58 03/10/19 04:58 Labs: Laboratory Results - last 24 hr 03/09/19 03/09/19 03/10/19 12:25 18:05 04:58 WBC 10.8 RBC 2.51 L Hgb 9.0 L 8.5 L Hct 26.7 L 24.5 L MCV 97.5 MCH 33.7 MCHC 34.6 RDW 14.5 Plt Count 138 L Neut % (Auto) 70.7 Lymph % (Auto) 20.2 L [place] % (Auto) 7.3 Eos % (Auto) 1.2 L Baso % (Auto) 0.6 Neut # (Auto) 7700 H Lymph # (Auto) 2200 [place] # (Auto) 800 Eos # (Auto) 100 Baso # (Auto) 100 Sodium Potassium Chloride Carbon Dioxide BUN Creatinine Estimated GFR BUN/Creatinine Ratio Glucose Calcium Blood Type B Positive Antibody Screen Negative Crossmatch See Detail 03/10/19 04:58 WBC RBC Hgb Hct MCV MCH MCHC RDW Plt Count Neut % (Auto) Lymph % (Auto) [place] % (Auto) Eos % (Auto) Baso % (Auto) Neut # (Auto) Lymph # (Auto) [place] # (Auto) Eos # (Auto) Baso # (Auto) Sodium 134 L Potassium 3.8 Chloride 101 Carbon Dioxide 28 BUN 18 H Creatinine 0.60 Estimated GFR > 60.0 BUN/Creatinine Ratio 30.0 H Glucose 94 Calcium 8.2 L Blood Type Antibody Screen Crossmatch Assessment & Plan Assessment & Plan narrative: Continue postop fracture care per Dr. Baer and continue medical care with anticipated discharge to extended care facility when medically stable.
--- NOTE | 2019-03-10 10:28 | CM.DPNOTE ---
DCP Cont: Per , pt's [facility] to be d/c'd and staff will work on helping pt to have a bowel movement and therapy today towards d/c tomorrow (Monday). SW recieved a call from pt's assigned [facility] LEANDRO Lomax stating that pt has been approved for SNF auth and aware pt to d/c to [facility] tomorrow. SW called [facility] and they confirm they can accept the pt tomorrow and SW updated that [facility] auth received. Plan: SW to follow closely for pt d/c to [facility] tomorrow with confirmed [facility] auth. PASRR done. MEL Olvera
--- NOTE | 2019-03-10 10:50 | PT.IPTN ---
Current Diagnoses Fracture of unspecified part of neck of left femur, initial encounter for closed fracture (03/07/19) Personal history of (healed) traumatic fracture (03/07/19) Presence of other bone and tendon implants (03/07/19) Surgery Performed Operation Date: 03/07/19 17:30 Actual Procedures p ORIF Hip/Intramedullary Hip Screw - Linda Baer MD Physical Therapy Treatment Note M2 PT-IP Current Condition Start: 03/08/19 12:46 Freq: NEEDED Status: Active Protocol: Document 03/08/19 10:35 AB (Rec: 03/08/19 13:06 AB [id number]) Physical Therapy Current Condition Current Condition Evaluation Date 03/08/19 Treatment Diagnosis s/p L hip fx s/p ORIF; difficulty in walking Onset Date 03/07/19 Weight Bearing Status Weight Bearing Status Touch Down Weight Bearing Allowed Weight Bearing Amount (enter % LLE TDWB: per ortho doctor's or #) (%) note: 25-50# max M3 PT-IP Subjective Start: 03/08/19 12:46 Freq: NEEDED Status: Active Protocol: Document 03/10/19 10:15 CLB (Rec: 03/10/19 11:30 CLB [id number]) Subjective Physical Therapy Visit Type Type Treatment Note Visit Start Time 10:15 Visit Stop Time 10:50 Total Visit Minutes 35 Number of CORNER FORMER Visits 2 Physical Therapy Visit Comments Patient Comments Pt agreeable to participate in PT. Therapy Pain Assessment Pain When Pain Assessed At Rest Pain Present Pain Present Pain Reported Location Left Hip Intensity 4 Scale Used Numeric (1 - 10) Pain Management Techniques Re-positioning Timing of Activity with Medications M4 PT-IP Mobility and Gait Start: 03/08/19 12:46 Freq: NEEDED Status: Active Protocol: Document 03/10/19 10:15 CLB (Rec: 03/10/19 11:30 CLB [id number]) PT-Bed Mobility Assessment Supine to Sit Supine to Sit Minimal Assistance Head of Bed Elevated Bedrails Scooting Scooting to Edge of Bed Minimal Assistance PT-Transfer Assessment Sit to and From Stand Sit to and from Stand Moderate Assistance 1 Person Assistance Use of Upper Extremities Equipment Transfer Assistive Device Gait Belt Front Wheeled Walker Orthotic/Prosthetic Devices or Brace: No Transfers Transfer Destination Chair Transfer Technique Stand Step Pivot Transfer Ability Level of Assist Moderate Assistance 1 Person Assistance Use of Upper Extremities Comments Mobility Comments Pt sitting BP 120/58, Pt with no dizziness or nausea with sitting or standing. Pt requires cues for TDWB during sit<>stand. Pt required Min A from bed and Mod A to stand from window seat. Gait Assessment Gait Gait Assistance Required: Minimum Assistance 1 Person Assist Distance (Feet) 15 Able to Maintain Weight Bearing Status Yes During Gait Assistive Devices Assistive Device Gait Belt Front Wheeled Walker Orthotic/Prosthetic Devices or Brace: No Factors Limiting Gait Function Factors Limiting Gait Function Decreased Activity Tolerance Decreased Strength Incoordination Pain Poor Balance Comments Gait Comments Pt requires verbal cues to sequence walker/step sequencing and cues to use TDWB during ambulation. Pt with decreased activity tolerance and fatigues quickly . Pt ambulated ~10 ft then required and long sitting rest break before ambulating another 5 ft before chair was brought behind her so she could sit down. M5 PT-IP Objective Assessments Start: 03/08/19 12:46 Freq: NEEDED Status: Active Protocol: Document 03/08/19 10:35 AB (Rec: 03/08/19 13:06 AB [id number]) Orientation Orientation/Cognition Level of Alertness Alert Orientation Name Place Situation Safety Awareness Decreased Safety Awareness Strength Lower Extremity Strength Assessment Left Impaired Hip 3-/5 Knee 3+/5 Coordination Assessment Gross Coordination Gross Coordination WNL Sensation Assessment Sensation Gross Sensation WNL Muscle Tone Muscle Tone WNL Yes M6 PT-IP Treatment Start: 03/08/19 12:46 Freq: NEEDED Status: Active Protocol: Document 03/10/19 10:15 CLB (Rec: 03/10/19 11:30 CLB [id number]) Physical Therapy Treatment Exercises Exercises Ankle Pumps Heel Slides Education Education Provided Precautions Weight Bearing Status Safety Other Treatments Other Treatment Performed Review of LLE WBing precaution . M7 PT-IP Assessment and Plan Start: 03/08/19 12:46 Freq: NEEDED Status: Active Protocol: Document 03/10/19 10:15 CLB (Rec: 03/10/19 11:30 CLB [id number]) PT Summary Assessment and Plan Summary Assessment Summary Pt feeling better today and pt was eager to get up to ambulate. Pt required Min A of LLE getting out of bed and Mod A sit-stand from a lower surface. Pt required verbal cues during sit<>stand for TDWB. Pt had no c/o dizziness or nausea. Goals Bed Mobility Goal Standby Assistance Transfer Goal Standby Assistance Front Wheeled Walker Gait Goal Standby Assistance Front Wheel Walker Gait Distance 50 Days to Meet Goals 5 Frequency of Treatment Frequency Of Treatment Twice a Day Treatment Plan Physical Therapy Treatment Plan Bed Mobility Training Transfer Training Gait Training Therapeutic Exercise Balance Retraining Post Op Education Discharge Planning Hot or Cold Pack Neuromuscular Re-ed Coordination Retraining Manual Therapy Other Recommendations and Next Treatment ambulation, transfers and Focus review of TDWB with scale. Recommendations To Nursing Amount of Assist Needed PT/OT Assist Only Discharge Recommendations PT Discharge Recommendations SNF Rehab
[2019-03-10] MEDS: CHOLECALCIFEROL (VITAMIN D3) 1,000 UNIT TABLET 1000 UNIT PO (10:55)
--- NOTE | 2019-03-10 13:00 | PT.IPTN ---
Current Diagnoses Fracture of unspecified part of neck of left femur, initial encounter for closed fracture (03/07/19) Personal history of (healed) traumatic fracture (03/07/19) Presence of other bone and tendon implants (03/07/19) Surgery Performed Operation Date: 03/07/19 17:30 Actual Procedures p ORIF Hip/Intramedullary Hip Screw - Linda Baer MD Physical Therapy Treatment Note M2 PT-IP Current Condition Start: 03/08/19 12:46 Freq: NEEDED Status: Active Protocol: Document 03/08/19 10:35 AB (Rec: 03/08/19 13:06 AB [id number]) Physical Therapy Current Condition Current Condition Evaluation Date 03/08/19 Treatment Diagnosis s/p L hip fx s/p ORIF; difficulty in walking Onset Date 03/07/19 Weight Bearing Status Weight Bearing Status Touch Down Weight Bearing Allowed Weight Bearing Amount (enter % LLE TDWB: per ortho doctor's or #) (%) note: 25-50# max M3 PT-IP Subjective Start: 03/08/19 12:46 Freq: NEEDED Status: Active Protocol: Document 03/10/19 13:00 RCC (Rec: 03/10/19 14:11 RCC [email or web address]) Subjective Physical Therapy Visit Type Type Treatment Note Visit Start Time 13:00 Visit Stop Time 13:15 Total Visit Minutes 15 Number of PUBLICIST Visits 0 Physical Therapy Visit Comments Patient Comments pt wants to learn how much weight she is actually putting on her LLE M4 PT-IP Mobility and Gait Start: 03/08/19 12:46 Freq: NEEDED Status: Active Protocol: Document 03/10/19 13:00 RCC (Rec: 03/10/19 14:11 RCC [id number]) PT-Bed Mobility Assessment Sit to Supine Sit to Supine Moderate Assistance 1 Person Assistance Scooting Scooting to Edge of Bed Contact Guard Assistance PT-Transfer Assessment Sit to and From Stand Sit to and from Stand Minimal Assistance 1 Person Assistance Use of Upper Extremities Equipment Transfer Assistive Device Gait Belt Front Wheeled Walker Gait Assessment Gait Gait Assistance Required: Contact Guard Assist Distance (Feet) 5 Assistive Devices Assistive Device Gait Belt Front Wheeled Walker Gait Deviations General Gait Pattern Antalgic Decreased Stride Length Decreased Feet Clearance Flexed Trunk Step-to Gait Factors Limiting Gait Function Factors Limiting Gait Function Decreased Activity Tolerance Decreased Strength Limited Range of Motion Pain Poor Balance M5 PT-IP Objective Assessments Start: 03/08/19 12:46 Freq: NEEDED Status: Active Protocol: Document 03/08/19 10:35 AB (Rec: 03/08/19 13:06 AB [id number]) Orientation Orientation/Cognition Level of Alertness Alert Orientation Name Place Situation Safety Awareness Decreased Safety Awareness Strength Lower Extremity Strength Assessment Left Impaired Hip 3-/5 Knee 3+/5 Coordination Assessment Gross Coordination Gross Coordination WNL Sensation Assessment Sensation Gross Sensation WNL Muscle Tone Muscle Tone WNL Yes M6 PT-IP Treatment Start: 03/08/19 12:46 Freq: NEEDED Status: Active Protocol: Document 03/10/19 13:00 RCC (Rec: 03/10/19 14:11 RCC [email or web address]) Physical Therapy Treatment Other Treatments Other Treatment Performed lateral and anterolateral weight shift onto scale- pt with 10-30 lbs pressure on LLE during this treatment portion M7 PT-IP Assessment and Plan Start: 03/08/19 12:46 Freq: NEEDED Status: Active Protocol: Document 03/10/19 13:00 RCC (Rec: 03/10/19 14:11 RCC [email or web address]) PT Summary Assessment and Plan Summary Assessment Summary Pt able to maintain proper WB status of the LLE with lateral and anterolateral weight shift to the L ranging rom 10- 30 lbs of pressure on the LLE. Pt was fatigued with this session, and requested to lay down. Overall, pt continues to be very limited with mobility , but making progress. She is a strong candidate for SNF rehabilitation. Goals Bed Mobility Goal Standby Assistance Transfer Goal Standby Assistance Front Wheeled Walker Gait Goal Standby Assistance Front Wheel Walker Gait Distance 50 Days to Meet Goals 5 Frequency of Treatment Frequency Of Treatment Twice a Day Treatment Plan Other Recommendations and Next Treatment cont. gait training, use scale Focus if needed Recommendations To Nursing Amount of Assist Needed 2 Person Assist Discharge Recommendations PT Discharge Recommendations SNF Rehab
--- NOTE | 2019-03-10 13:32 | PM.PN.1 ---
Subjective Date Patient Seen: 03/10/19 Interval history: Chart reviewed patient seen and examined. Lopez catheter still in place this will be removed. Patient has some concerns regarding her ability to get to the restroom. She reports no BM for several days. Patient prefers to go to [facility] for rehabilitation post discharge. She has no other complaints at this time. Exam Vital Signs (past 8 hours): - 03/10/19 08:10 03/10/19 11:00 Temperature 98.6 F 97.4 F L Pulse Rate 78 90 Respiratory Rate 16 20 Blood Pressure 153/59 H 108/60 Pulse Oximetry 98 99 Oxygen Delivery Method Room Air Oxygen Flow Rate 0 Narrative Exam Narrative: Pleasant female resting comfortably in no obvious distress Lungs: Clear to auscultation Cardiac exam: Regular rate and rhythm normal S1-S2 Abdomen: Soft and nontender Extremities: Left hip with a dressing in place. Left foot with minimal edema. Objective Labs Result Diagrams: 03/10/19 04:58 03/10/19 04:58 Labs: Laboratory Results - last 24 hr 03/09/19 03/09/19 03/10/19 12:25 18:05 04:58 WBC 10.8 RBC 2.51 L Hgb 9.0 L 8.5 L Hct 26.7 L 24.5 L MCV 97.5 MCH 33.7 MCHC 34.6 RDW 14.5 Plt Count 138 L Neut % (Auto) 70.7 Lymph % (Auto) 20.2 L [place] % (Auto) 7.3 Eos % (Auto) 1.2 L Baso % (Auto) 0.6 Neut # (Auto) 7700 H Lymph # (Auto) 2200 [place] # (Auto) 800 Eos # (Auto) 100 Baso # (Auto) 100 Sodium Potassium Chloride Carbon Dioxide BUN Creatinine Estimated GFR BUN/Creatinine Ratio Glucose Calcium Blood Type B Positive Antibody Screen Negative Crossmatch See Detail 03/10/19 04:58 WBC RBC Hgb Hct MCV MCH MCHC RDW Plt Count Neut % (Auto) Lymph % (Auto) [place] % (Auto) Eos % (Auto) Baso % (Auto) Neut # (Auto) Lymph # (Auto) [place] # (Auto) Eos # (Auto) Baso # (Auto) Sodium 134 L Potassium 3.8 Chloride 101 Carbon Dioxide 28 BUN 18 H Creatinine 0.60 Estimated GFR > 60.0 BUN/Creatinine Ratio 30.0 H Glucose 94 Calcium 8.2 L Blood Type Antibody Screen Crossmatch Assessment & Plan Assessment & Plan narrative: Acute comminuted and angulated intertrochanteric fracture left hip, present on admission -status post open reduction internal fixation of left proximal femur -x-ray revealed fracture from the lesser to greater trochanter that is comminuted and angulated -as per Ortho, patient is to be partial weight-bearing on the left lower extremity approximately 25-50 lb. She is to continue aspirin for DVT prophylaxis -continue [place] as needed for pain control 2. Acute anemia - Possibly due to blood loss from procedure vs hemodilutinal vs other - Hb 13.2->9.8->7.5 this am - MCV 99.1 - CT L hip performed: An expected amount of soft tissue gas, soft tissue swelling, and soft tissue hematoma can be seen. No localized or loculated hematoma is seen. - Given the rate of hb drop and symptoms of dizziness, will transfuse patient 1U PRBC and follow up on Hb repeat after - Will get stool guiac to rule out GI bleed - Monitor H/H Will start IV iron 3. Frequent falls, active -possibly due to dehydration from intermittent fasting and use of lisinopril-hydrochlorothiazide -patient has bruises in various stages of healing and endorses frequent falls occurring multiple times monthly, the last being 5 days ago -blood pressure currently on higher side and patient took her own home medications this morning -continue patient's amlodipine and lisinopril but hold HCTZ given concern for dehydration -will encourage p.o. hydration and monitor blood pressure closely -PT and OT to evaluate and treat. 4. Dizziness, ongoing -likely dehydration induced from reduced p.o. intake and subsequent hydrochlorothiazide use. Possible GI bleed? -patient's blood pressure now stabilized -continue home regimen other than HCTZ and closely monitor of blood pressure -encourage p.o. hydration 5. Chronic hypertension, stable. -blood pressure on the higher side this morning -will resume patient's amlodipine and lisinopril medications. Hold HCTZ -patient is able to tolerate p.o., will stop IV fluids 6. Acquired hypothyroidism, chronic, presumed stable
[2019-03-10] MEDS: IRON SUCROSE 200 MG in SODIUM CHLORIDE 0.9% 100 ML 220 ML IV (15:38)
--- NOTE | 2019-03-10 15:57 | OT.IP.TRT ---
Current Diagnoses Fracture of unspecified part of neck of left femur, initial encounter for closed fracture (03/07/19) Personal history of (healed) traumatic fracture (03/07/19) Presence of other bone and tendon implants (03/07/19) Surgery Performed Operation Date: 03/07/19 17:30 Actual Procedures p ORIF Hip/Intramedullary Hip Screw - Linda Baer MD Occupational Therapy Treatment Note M3 OT- IP Subjective and Pain Start: 03/10/19 15:56 Freq: Status: Active Protocol: Document 03/10/19 15:57 CGR (Rec: 03/10/19 15:57 CGR [id number]) OT- Subjective Occupational Therapy Visit Type Type Administrative Note Notes Attempted to see pt for OT services. Obtained PLOF and home set up but pt requested no OOB activity at this time. Will hold and continue to follow for Eval.
--- NOTE | 2019-03-10 16:06 | PC.NURSE ---
Addendum entered by Tosin Gonzáles R.N. 03/10/19 22:42: Pt reports desires to sleep on side. Educated pt only to lie on operative side (left) or back. No crossing over central/neutral position with left leg. Pt verbalizes understanding and states prefers back lying at this time. Addendum entered by Tosin Gonzáles R.N. 03/10/19 20:39: Pt reports minimal pain to left hip. Nonpitting edema noted to LLE with areas of scattered bruising. Proximal Aquacel dressing to left hip boggy and saturated with drainage. Carefully removed dressing noting oozing of fresh blood from staple line. Area dried with bulky 4 x 4's. Placed fresh aquacel dressing to staple line leaving distal smaller aquacel intact. Pt tolerated this well and was assisted up to commode for void and returned to bed. Requires assistance in moving LLE. Pillow between legs upon return to bed with BL scd's in place. Bed alarm activated. Call light available. Original Note: Pt resting quietly in bed with eyes closed @ beginning of shift. Rouses easily to voice and initiation of iron infusion. Instructed pt on constipating effects of narcotics and offered pt choices of bowel meds to aid with bowel function. Pt declines all offers. States is passing gas and doesn't feel uncomfortable. Clear lungs throughout. Admits to full sensation to BL LE's. Palpable pedal pulses BL. BL scd's in place.
--- NOTE | 2019-03-10 23:40 | PC.NURSE ---
Addendum entered by Malinda Thomas R.N. 03/11/19 04:16: Complains of 6/10 left hip pain after being up to BSC; medicated with Vicodin but declines offer of ice pack. No increase in drainage noted. Original Note: Patient is alert and oriented. Breath sounds CTA with RA sat of 95%. HRR. Denies nausea. BT present and passing flatus but has not had a BM since 03/06; refusing MOM at this time. Denies dysuria, frequency or urgency and gets up to BSC with walker and 1 assist. Able to turn self in bed. Dressings to left hip intact but with noted drainage; outlined to monitor. Bruising noted to left hip/buttock. Dressing to right forearm is CDI. Abrasion to left elbow noted; no redness or drainage. CMS is intact. Wearing bilateral SCD's. Denies pain. Fall risk score is high and bed alarm is activated.
[2019-03-11] MEDS: HYDROCODONE/ACET 5/325 TABLET 1 TAB PO ×3 (04:13→12:56)
[2019-03-11 04:21] VITALS: BP 146/69; PULSE 78; RESP 19; TEMP 36.6; O2SAT 98
[2019-03-11] MEDS: LEVOTHYROXINE 75 MCG TABLET PO (06:42)
[2019-03-11] MEDS: MAGNESIUM HYDROXIDE 30 ML UDC PO (06:43)
[2019-03-11 08:25] VITALS: BP 126/60; PULSE 81; RESP 18; TEMP 36.4; O2SAT 94
[2019-03-11] MEDS: LISINOPRIL 20 MG TABLET PO (08:48)
[2019-03-11] MEDS: CHOLECALCIFEROL (VITAMIN D3) 1,000 UNIT TABLET 1000 UNIT PO (08:48)
[2019-03-11] MEDS: SODIUM CHLORIDE 0.9% FLUSH 10 ML IV (08:48)
[2019-03-11] MEDS: ASPIRIN EC 81 MG TABLET PO (08:48)
[2019-03-11] MEDS: DOCUSATE 100 MG CAPSULE PO (08:48)
[2019-03-11] MEDS: ASCORBIC ACID 500 MG TABLET PO (08:48)
[2019-03-11] MEDS: AMLODIPINE 5 MG TABLET PO (08:48)
[2019-03-11] MEDS: POLYETHYLENE GLYCOL 3350 17 GM POWD.PACK PO (08:49)
--- NOTE | 2019-03-11 10:05 | PT.IPTN ---
Current Diagnoses Fracture of unspecified part of neck of left femur, initial encounter for closed fracture (03/07/19) Personal history of (healed) traumatic fracture (03/07/19) Presence of other bone and tendon implants (03/07/19) Surgery Performed Operation Date: 03/07/19 17:30 Actual Procedures p ORIF Hip/Intramedullary Hip Screw - Linda Baer MD Physical Therapy Treatment Note M2 PT-IP Current Condition Start: 03/08/19 12:46 Freq: NEEDED Status: Active Protocol: Document 03/08/19 10:35 AB (Rec: 03/08/19 13:06 AB [id number]) Physical Therapy Current Condition Current Condition Evaluation Date 03/08/19 Treatment Diagnosis s/p L hip fx s/p ORIF; difficulty in walking Onset Date 03/07/19 Weight Bearing Status Weight Bearing Status Touch Down Weight Bearing Allowed Weight Bearing Amount (enter % LLE TDWB: per ortho doctor's or #) (%) note: 25-50# max M3 PT-IP Subjective Start: 03/08/19 12:46 Freq: NEEDED Status: Active Protocol: Document 03/11/19 09:50 CLB (Rec: 03/11/19 11:06 CLB [id number]) Subjective Physical Therapy Visit Type Type Treatment Note Visit Start Time 09:50 Visit Stop Time 10:05 Total Visit Minutes 15 Number of OIL SPOT WASHER Visits 1 Physical Therapy Visit Comments Patient Comments Pt needing to use BSC Therapy Pain Assessment Pain When Pain Assessed During Mobility Pain Present Pain Present Pain Reported Location Left Hip Intensity 5 Scale Used Numeric (1 - 10) Pain Management Techniques Re-positioning Timing of Activity with Medications M4 PT-IP Mobility and Gait Start: 03/08/19 12:46 Freq: NEEDED Status: Active Protocol: Document 03/11/19 09:50 CLB (Rec: 03/11/19 11:06 CLB [id number]) PT-Bed Mobility Assessment Supine to Sit Supine to Sit Minimal Assistance Head of Bed Elevated Bedrails Scooting Scooting to Edge of Bed Contact Guard Assistance PT-Transfer Assessment Sit to and From Stand Sit to and from Stand Minimal Assistance 1 Person Assistance Use of Upper Extremities Equipment Transfer Assistive Device Gait Belt Front Wheeled Walker Transfers Transfer Destination Bedside Commode Transfer Technique Stand Step Pivot Transfer Ability Level of Assist Minimal Assistance 1 Person Assistance Use of Upper Extremities Comments Mobility Comments Pt improving with bed mobility requiring fewer cues to sequence OOB. M5 PT-IP Objective Assessments Start: 03/08/19 12:46 Freq: NEEDED Status: Active Protocol: Document 03/08/19 10:35 AB (Rec: 03/08/19 13:06 AB [id number]) Orientation Orientation/Cognition Level of Alertness Alert Orientation Name Place Situation Safety Awareness Decreased Safety Awareness Strength Lower Extremity Strength Assessment Left Impaired Hip 3-/5 Knee 3+/5 Coordination Assessment Gross Coordination Gross Coordination WNL Sensation Assessment Sensation Gross Sensation WNL Muscle Tone Muscle Tone WNL Yes M6 PT-IP Treatment Start: 03/08/19 12:46 Freq: NEEDED Status: Active Protocol: Document 03/11/19 09:50 CLB (Rec: 03/11/19 11:06 CLB [id number]) Physical Therapy Treatment Exercises Exercises Ankle Pumps Heel Slides Education Education Provided Precautions Weight Bearing Status Safety M7 PT-IP Assessment and Plan Start: 03/08/19 12:46 Freq: NEEDED Status: Active Protocol: Document 03/11/19 09:50 CLB (Rec: 03/11/19 11:06 CLB [id number]) PT Summary Assessment and Plan Summary Assessment Summary Pt needing to use BSC to have BM so pt did not ambulate but was able to improve with bed mobility requiring less assist to the EOB. Pt stood with Min A and performed a stand pivot transfer while using TDWB on LLE. Pt required cues for hand placement for stand-sit onto BSC for safety. Goals Bed Mobility Goal Standby Assistance Transfer Goal Standby Assistance Front Wheeled Walker Gait Goal Standby Assistance Front Wheel Walker Gait Distance 50 Days to Meet Goals 5 Frequency of Treatment Frequency Of Treatment Twice a Day Recommendations To Nursing Amount of Assist Needed 2 Person Assist Discharge Recommendations PT Discharge Recommendations SNF Rehab
--- NOTE | 2019-03-11 10:34 | PM.DS.1 ---
History of Present Illness Date Patient Seen: 03/11/19 Chief complaint: GLF-left hip pain Narrative: Avery Singh is a 73-year-old female patient with history significant for hypertension, acquired hypothyroidism secondary to thyroid cancer, morbid obesity and frequent falls who presents to the ER following a ground level fall today landing on her left hip. Patient states she has been intermittently fasting and had not had food but has been drinking water and coffee when she became dizzy and fell onto her left hip. The patient relates that she has had intermittent episodes of dizziness that her transient and that the episode today is no different from those previous. She also sustained abrasions over the left patella and left elbow without contusion or swelling. She reports having previous falls last being on Monday where she landed on her left shoulder and sustained a contusion over her left eye. She has resolving ecchymosis on her right medial forearm. The patient indicates she did not lose consciousness and sustained no neck or back injury. She denies recent prodromal symptoms including recent illness, fevers or chills, headaches or visual changes and no diaphoresis. She denies nasal congestion or sore throat. She has no chest pain but endorses having occasional episodes of palpitations. She denies shortness of breath cough or wheezing. She reports no abdominal pain and has had no nausea or vomiting diarrhea or constipation. She reports no dysuria, frequency or hematuria however states when she has to go she has to go now. She typically is ambulatory without difficulty and independent in all functions of daily living. In the ER the patient was found to have a temperature of 97.6?, heart rate of 73, blood pressure 139/69, respiratory rate of 20 and room air oxygen saturation at 90%. A pelvis hip x-ray was taken which demonstrated intertrochanteric comminuted and angulated fracture of the left hip. Patient received Dilaudid and Zofran and a L of normal saline. Twelve lead EKG demonstrates sinus rhythm with a ventricular rate of 70 without ectopy or block, no ST or T-wave changes or indications of infarct. The patient's CBC is unremarkable as is her chemistry panel. She has a nonfasting glucose at 126. Dr. Baer orthopedics is consulted who is elected to take the patient from the emergency department to the OR for open reduction and internal fixation. The patient is evaluated on the floor following recovery in postanesthesia care unit. Discharge Providers Date of admission: 03/07/19 17:32 Discharge Date: 03/11/19 Primary care physician: Caprice Burrows PA-C Consults: 03/07/19 16:28 Consult to Orthopedic Surgery Stat Comment: Consulting Provider: Linda Baer Reason for consultation: left hip fracture Has provider been notified: Yes 03/07/19 23:19 Consult to Discharge Planning Routine Comment: ecf Consult to Physical Therapy Evaluate & Treat Comment: Physician Instructions: Evaluate and Treat Consult to Respiratory Therapy Evaluate & Treat Comment: Physician Instructions: Evaluate and treat 03/07/19 23:55 Consult to Pocket Builder Routine Comment: 03/08/19 14:29 Consult to Occupational Therapy Evaluate & Treat Comment: Physician Instructions: Evaluate and treat Discharge provider: Janice Kent MD Summary Discharge Diagnosis: S/P ORIF Left Hip Frequent Falls Vit D Deficiency Osteoporosis Hypertension, chronic Hypothyroidism, chronic Dizziness Blood loss anemia Hospital Course: The patient is a 73-year-old female who was admitted to the hospital following a fall. She sustained an intertrochanteric fracture. Patient was taken to the OR and had an ORIF of the left hip. She tolerated the procedure well. She had no postoperative complications. Patient was found to be vitamin-D deficient. She was started on oral vitamin-D. Her usual home medications were continued. She was seen and evaluated by physical therapy occupational therapy. She was deemed appropriate for discharge to fci unit for ongoing rehabilitation. At the time of this dictation she is in no acute distress. Lopez catheter is been removed. She has no vomiting nausea shortness of breath or pain. Patient is deemed appropriate for discharge and will be discharged accordingly. Status at Discharge Cognitive/behavioral status at discharge: oriented Functional status at discharge: uses cane/walker Overall status at discharge: patient is not back to baseline Time Spent with Patient Less than 30 minutes Exam Vital Signs (past 8 hours): - 03/11/19 04:21 03/11/19 08:25 Temperature 97.8 F 97.6 F Pulse Rate 78 81 Respiratory Rate 19 18 Blood Pressure 146/69 H 126/60 Pulse Oximetry 98 94 Oxygen Delivery Method Room Air Oxygen Flow Rate 0 Narrative Exam Narrative: Pleasant female in no acute distress Lungs: Clear to auscultation Cardiac exam: Regular rate and rhythm normal S1-S2 Abdomen: Soft nontender non Extremities: Left hip with dressing in place Objective Labs Result Diagrams: 03/10/19 04:58 03/10/19 04:58 Labs: Laboratory Results - last 24 hr 03/09/19 12:25 Crossmatch See Detail Discharge Plan Discharge Plan Discharge Problem: Closed left hip fracture Patient Disposition: SNF Transfer to: [facility] Transportation: Ambulance Consult as needed: Dental, Hearing, Mental health, Podiatry and Vision I certify the postop hospital fci care is medically necessary on a continuing basis for any conditions for which he/ she received care during this hospitalization.: Yes The receiving facility has agreed to accept transfer and provide medical treatment.: Yes Discharge Med Rec/Prescriptions Prescriptions: New hydrocodone-acetaminophen 5-325 mg Tablet 1 tab PO Q4HR PRN (Reason: Pain, Mild (1-3)) Qty: 15 RF: 0 docusate sodium [DOK] 100 mg Capsule 100 mg PO BID Qty: 30 RF: 0 calcium carbonate 200 mg calcium (500 mg) Tablet,Chewable 1,000 mg PO Q4HR PRN (Reason: Dyspepsia) Qty: 30 RF: 0 cholecalciferol (vitamin D3) [Vitamin D3] 2,000 unit capsule 2,000 unit PO DAILY Qty: 30 RF: 0 ascorbic acid (vitamin C) [Vitamin C] 500 mg Tablet 500 mg PO BID Qty: 30 RF: 0 ferrous sulfate [iron] 325 mg (65 mg iron) tablet 325 mg PO BID Qty: 60 RF: 0 Continued aspirin 325 mg tablet 650 mg PO BEDTIME PRN (Reason: Pain, Mild) RF: 0 amlodipine [Norvasc] 5 mg tablet 5 mg PO DAILY Qty: 90 RF: 0 levothyroxine [Synthroid] 75 mcg tablet 75 mcg PO DAILY Qty: 90 RF: 3 olive leaf extract 500 mg 1,000 mg PO DAILY RF: 0 lisinopril-hydrochlorothiazide 20-25 mg tablet 1 tab PO DAILY RF: 0 Follow up/Referrals: Caprice Burrows PA-C [Primary Care Provider] - Discharge Health Status Multidrug resistant organism: No MDRO Provider Discharge Instructions Diet: Low-sodium Liquid consistency: Normal/Thin Food texture: Regular Activity: Partial weight-bearing on the left lower extremity 25-50 lb at max. Skin/Wound/Dressing Care Report to your healthcare provider any signs of infection, such as:: unusual drainage and unusual redness Special Rehabilitation Services Reason for rehabilitation: Post-operative therapy Rehab type: Physical therapy and Occupational therapy Discharge Data Primary Care Provider: Caprice Burrows Attending Provider: Cam Dumont Admit Date/Time: 03/07/19 17:32
--- NOTE | 2019-03-11 10:38 | P.DS_ITS ---
History of Present Illness Date Patient Seen: 03/11/19 Chief complaint: GLF-left hip pain Narrative: Avery Singh is a 73-year-old female patient with history significant for hypertension, acquired hypothyroidism secondary to thyroid cancer, morbid obesity and frequent falls who presents to the ER following a g round level fall today landing on her left hip. Patient states she has been intermittently fasting and had not had food but has been drinking water and coffee when she became dizzy and fell onto her left hip. The patient relates that she has had intermittent episodes of dizziness that her transient and that the episode today is no different from those previous. She also sustained abrasions over the left patella and left elbow without contusion or swelling. She reports having previous falls last being on Monday where she landed on her left shoulder and sustained a contusion over her left eye. She has resolving ecchymosis on her right medial forearm. The patient indicates she did not lose consciousness and sustained no neck or back injury. She denies recent prodromal symptoms including recent illness, fevers or chills, headaches or visual changes and no diaphoresis. She denies nasal congestion or sore throat. She has no chest pain but endorses having occasional episodes of palpitations. She denies shortness of breath cough or wheezing. She reports no abdominal pain and has h ad no nausea or vomiting diarrhea or constipation. She reports no dysuria, frequency or hematuria however states when she has to go she has to go now. She typically is ambulatory without difficulty and independent in all functions of daily living. In the ER the patient was found to have a temperature of 97.6?, heart rate of 73, blood pressure 139/69, respiratory rate of 20 and room air oxygen saturation at 90%. A pelvis hip x-ray was taken which demonstrated intertrochanteric comminuted and angulated fracture of the left hip. Patient received Dilaudid and Zofran and a L of normal saline. Twelve lead EKG demonstrates sinus rhythm with a ventricular rate of 70 without ectopy or block, no ST or T-wave changes or indications of infarct. The patient's CBC is unremarkable as is her chemis try panel. She has a nonfasting glucose at 126. Dr. Baer orthopedics is consulted who is elected to take the patient from the emergency department to the OR for open reduction and internal fixation. The patient is evaluated on the floor following recovery in postanesthesia care unit. Discharge Providers Date of admission: 03/07/19 17:32 Discharge Date: 03/11/19 Primary care physician: Caprice Burrows PA-C Consults: 03/07/19 16:28 Consult to Orthopedic Surgery Stat Comment: Consulting Provider: Linda Baer Reason for consultation: left hip fracture Has provider been notified: Yes 03/07/19 23:19 Consult to Discharge Planning Routine Comment: ecf Consult to Physical Therapy Evaluate & Treat Comment: Physician Instructions: Evaluate and Treat Consult to Respiratory Therapy Evaluate & Treat Comment: Physician Instructions: Evaluate and treat 03/07/19 23:55 Consult to Cellophane Tester Routine Comment: 03/08/19 14:29 Consult to Occupational Therapy Evaluate & Treat Comment: Physician Instructions: Evaluate and treat Discharge provider: Janice Kent MD Summary Discharge Diagnosis: S/P ORIF Left Hip Frequent Falls Vit D Deficiency Osteoporosis Hypertension, chronic Hypothyroidism, chronic Dizziness Blood loss anemia Hospital Course: The patient is a 73-year-old female who was admitted to the hospital following a fall. She sustained an intertrochanteric fracture. Spencer ogden was taken to the OR and had an ORIF of the left hip. She tolerated the procedure well. She had no postoperative complications. Patient was found to be vitamin-D deficient. She was started on oral vitamin-D. Her usual home medications were continued. She was seen and evaluated by physical therapy occupational therapy. She was deemed appropriate for discharge to senior care unit for ongoing rehabilitation. At the time of this dictation she is in no acute distress. Lopez catheter is been removed. She has no vomiting nausea shortness of breath or pain. Patient is deemed appropriate for discharge and will be discharged accordingly. Status at Discharge Cognitive/behavioral status at discharge: oriented Functional status at discharge: uses cane/walker Overall status at discharge: patient is not back to baseline Time Spent with Patient Less than 30 minutes Exam Vital Signs (past 8 hours): - 03/11/19 04:21 03/11/19 08:25 Temperature 97.8 F 97.6 F Pulse Rate 78 81 Respiratory Rate 19 18 Blood Pressure 146/69 H 126/60 Pulse Oximetry 98 94 Oxygen Delivery Method Room Air Oxygen Flow Rate 0 Narrative Exam Narrative: Pleasant female in no acute distress Lungs: Clear to auscultation Cardiac exam: Regular rate and rhythm normal S1-S2 Abdomen: Soft nontender non Extremities: Left hip with dressing in place Objective Labs Result Diagrams: 03/10/19 04:58 03/10/19 04:58 Labs: Laboratory Results - last 24 hr 03/09/19 12:25 Crossmatch See Detail Discharge Plan Discharge Plan Discharge Problem: Closed left hip fracture Patient Disposition: SNF Transfer to: [facility] Transportation: Ambulance Consult as needed: Dental, Hearing, Mental health, Podiatry and Vision I certify the postop hospital senior care care is medically necessary on a continuing basis for any conditions for which he/ she received care during this hospitalization.: Yes The receiving facility has agreed to accept transfer and provide medical treatment.: Yes Discharge Med Rec/Prescriptions Prescriptions: New hydrocodone-acetaminophen 5-325 mg Tablet 1 tab PO Q4HR PRN (Reason: Pain, Mild (1-3)) Qty: 15 RF: 0 docusate sodium [DOK] 100 mg Capsule 100 mg PO BID Qty: 30 RF: 0 calcium carbonate 200 mg calcium (500 mg) Tablet,Chewable 1,000 mg PO Q4HR PRN (Reason: Dyspepsia) Qty: 30 RF: 0 cholecalciferol (vitamin D3) [Vitamin D3] 2,000 unit capsule 2,000 unit PO DAILY Qty: 30 RF: 0 ascorbic acid (vitamin C) [Vitamin C] 500 mg Tablet 500 mg PO BID Qty: 30 RF: 0 ferrous sulfate [iron] 325 mg (65 mg iron) tablet 325 mg PO BID Qty: 60 RF: 0 Continued aspirin 325 mg tablet 650 mg PO BEDTIME PRN (Reason: Pain, Mild) RF: 0 amlodipine [Norvasc] 5 mg tablet 5 mg PO DAILY Qty: 90 RF: 0 levothyroxine [Synthroid] 75 mcg tablet 75 mcg PO DAILY Qty: 90 RF: 3 olive leaf extract 500 mg 1,000 mg PO DAILY RF: 0 lisinopril-hydrochlorothiazide 20-25 mg tablet 1 tab PO DAILY RF: 0 Follow up/Referrals: Caprice Burrows PA-C [Primary Care Provider] - Discharge Health Status Multidrug resistant organism: No MDRO Provider Discharge Instructions Diet: Low-sodium Liquid consistency: Normal/Thin Food texture: Regular Activity: Partial weight-bearing on the left lower extremity 25-50 lb at max. Skin/Wound/Dressing Care Report to your healthcare provider any signs of infection, such as:: unusual drainage and unusual redness Special Rehabilitation Services Reason for rehabilitation: Post-operative therapy Rehab type: Physical therapy and Occupational therapy Discharge Data Primary Care Provider: Caprice Burrows Attending Provider: Cam Dumont Admit Date/Time: 03/07/19 17:32
--- NOTE | 2019-03-11 11:02 | CM.DPC ---
DCP/continued: Reviewed chart. Received notification from Dr. Kent that patient okay to transfer to SNF today. Per notes, patient has been accepted at [facility]. Placed call to March at [facility] and she confirms that they can accept today. Met with patient to confirm plan. Patient aware and agreeable to go to [facility] today and will notify her children. Orders, PASSR, and copy of scripts faxed to [facility]. [employer] area supervisor scheduled for 1:00pm. RN updated. P: [facility] today. MEL Merritt
[2019-03-11] MEDS: BISACODYL 10 MG SUPP PR (11:11)
--- NOTE | 2019-03-11 11:30 | OT.IP.TRT ---
Current Diagnoses Fracture of unspecified part of neck of left femur, initial encounter for closed fracture (03/07/19) Personal history of (healed) traumatic fracture (03/07/19) Presence of other bone and tendon implants (03/07/19) Surgery Performed Operation Date: 03/07/19 17:30 Actual Procedures p ORIF Hip/Intramedullary Hip Screw - Linda Baer MD Occupational Therapy Treatment Note M2 OT-IP Current Condition Start: 03/10/19 15:56 Freq: Status: Active Protocol: Document 03/11/19 11:14 [facility] (Rec: 03/11/19 11:29 [facility] [id number]) Occupational Therapy Current Condition Current Condition Evaluation Date 03/11/19 Treatment Diagnosis Left Hip ORIF s/p GLF Diagnosis Onset Date 03/07/19 Weight Bearing Status Weight Bearing Status Touch Down Weight Bearing Allowed Weight Bearing Amount (enter % 25-50 lbs TTWB for LLE or #) (%) M3 OT- IP Subjective and Pain Start: 03/10/19 15:56 Freq: Status: Active Protocol: Document 03/11/19 11:14 [facility] (Rec: 03/11/19 11:29 [facility] [id number]) OT- Subjective Occupational Therapy Visit Type Type Initial Evaluation Visit Start Time 10:25 Visit Stop Time 11:10 Total Visit Minutes 45 Occupational Therapy Visit Comments Patient Comments Pt states ready to go to skilled rehab today. 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 OT ADL-Toileting General Evaluation Toileting Ability Standby Assistance Comments OT Toileting Comments Pt able to get legs far enough apart to do her own pericare needs. Educated pt to scoot forwards on the toilet so would be able to wipe- stimulated wiping after bowel movement. M5 OT- IP IADL's Start: 03/10/19 15:56 Freq: Status: Active Protocol: Document 03/11/19 11:14 [facility] (Rec: 03/11/19 11:29 [facility] [id number]) OT-Instrumental Activities of Daily Living Home Safety Awareness Awareness of Need for Assistance at Home Decreased Awareness Home Safety Comments Pt states not thinking well and thinks from medications. Pt feel a bit confused, nursing aware. M6 OT- IP Functional Cognition Start: 03/10/19 15:56 Freq: Status: Active Protocol: Document 03/11/19 11:14 [facility] (Rec: 03/11/19 11:29 [facility] [id number]) Cognitive Factors Limiting Selfcare Function Cognitive Ability Level of Alertness Alert Confusional State Patient Orientation Name Place Situation Attention Span Ability Capable of Focused Attention Capable of Sustained Attention Ability to Follow Commands Able to Follow One Step Commands Memory Description Short Term Impaired Safety Awareness Underestimates Need for Assistance Cognitive Comments Cognitive Assessment Comments Pt needs reminders for TTWB, vc to push up from the FWW and reach back while sitting. Pt having trouble writing down list of items needed for at home. Pt did not recall FWW measurement 22 inches wide and thought was 29 inches. OT- Vision and Hearing OT- Hearing Assessment OT- Hearing Assessment WFL OT- Vision Assessment Visual Acuity Glasses All The Time M7 OT- IP Mobility and Balance Start: 03/10/19 15:56 Freq: Status: Active Protocol: Document 03/11/19 11:14 [facility] (Rec: 03/11/19 11:29 [facility] [id number]) OT-Transfer Assessment Sit to and From Stand Sit to and from Stand Contact Guard Assistance Transfers Transfer Ability Standby Assistance Contact Guard Assistance Technique Transfer Destination Bedside Commode Chair Transfer Technique Stand Step Pivot Devices Transfer Assistive Devices Gait Belt Front Wheeled Walker Comments Mobility Comments Recommended that pt wear shoe on right side to increase ease to move. Pt needing CGA at time for occasional steadying especially when coming to stand or sit. OT- Balance Assessment Sitting Balance and Reactions Static Sitting Balance Ability Normal Dynamic Sitting Balance Ability Normal Standing Balance and Reactions Static Standing Balance Ability Fair M8 OT- IP Objective Assessments Start: 03/10/19 15:56 Freq: Status: Active Protocol: Document 03/11/19 11:14 [facility] (Rec: 03/11/19 11:29 [facility] [id number]) OT Gross Range of Motion Upper Extremity Range of Motion Assessment Within Functional Limits M9 OT- IP Assessment and Plan Start: 03/10/19 15:56 Freq: Status: Active Protocol: Document 03/11/19 11:14 [facility] (Rec: 03/11/19 11:29 [facility] [id number]) OT Summary Assessment and Plan Potential Rehabilitation Potential Good Analytic Complexity at Evaluation Low Summary OT Impairments Balance Functional Cognition Functional Mobility Grooming Dressing Toileting Bathing Toilet Transfers Shower Transfers Progress Towards Goals Progressing Toward Goals Slow Progress due to Cognition Assessment Summary Pt low complexity and main barriers are steps, decreased short term memory and now needing one person assist for all Adl's and functional mobility needs. Pt currently LLE TTWB and will benefit from skilled rehab prior to going home. 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 Sock Aid Toileting Goal Standby Assistance Bathing Goal Minimal Assistance Toilet Transfer Goal Standby Assistance Shower Transfer Goal Minimal Assistance Patient/Caregiver Education Goal Demonstrate Post-Op Precautions Demonstrate Energy Conservation and Pacing Caregiver Independent Assisting Patient Days to Meet Goals 5 Frequency of Treatment Frequency Of Treatment Once a Day Treatment Plan OT Treatment Plan ADL Training Functional Cognition Training Functional Mobility Patient/Family Education Discharge Planning Other Treatment Recommendations and Next shower Treatment Focus Discharge Recommendations OT Discharge Recommendations SNF Rehab Home Equipment Needs Tub bench, RTS versus BSC, FWW , HHSP, walker tray
--- NOTE | 2019-03-11 12:12 | PC.NURSE ---
Patient assisted with PATIENT CASE MANAGER to shower. Suppository given (along with oral stool softners and laxatives this morning) to assist with BM, although patient states she is not having any discomfort or nausea. Feels like she will have BM soon. Good appetite. Voiding without difficulty. Able to maintain partial weight bearing on left leg with use of walker. Aquacel dressings x 2 changed after to shower and now are CDI. Area around incisions remains bruised with some edema. Good CMS, and pain well managed with norco as ordered. Patient waiting for family to bring her lunch, and planning for bean picker at 1300.
--- NOTE | 2019-03-11 13:16 | PC.NURSE ---
Report called to Jermaine accepting nurse. 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 IV removed intact. Dressings remain CDI. Medicated for pain prior to discharge. Patient's family with patient at bedside to follow her over and bring her bags.
[2019-03-12 14:24] LABS: Parathyroid Hormone Int 17 pg/mL (14-64)
== END 2019-03-11 13:18 | DRG 481 ==
LOC: ED 15:31 → AC 17:33
PROVIDERS: Internal Medicine; Orthopaedic Surgery; Admitting Provider Internal Medicine; Emergency Provider Emergency Medicine; Family Provider Physician Assistant; PCP Physician Assistant; Visit Provider Nurse Practitioner Adult Health
PROC: 0QS704Z Reposition Left Upper Femur with Internal Fixation Device, Open Approach (ICD-10-PCS; principal; 2019-03-07 17:30)
DX: S72.142A Displaced intertrochanteric fracture of left femur, initial encounter for closed fracture (principal); D62 Acute posthemorrhagic anemia; M25.512 Pain in left shoulder; E55.9 Vitamin D deficiency, unspecified; M81.0 Age-related osteoporosis without current pathological fracture; W18.30XA Fall on same level, unspecified, initial encounter; E03.9 Hypothyroidism, unspecified; I10 Essential (primary) hypertension; Z87.891 Personal history of nicotine dependence; R42 Dizziness and giddiness; Z91.81 History of falling
CPT/HCPCS: 36415; 36430; 51701; 73030; 73502; 73700; 76000; 80048; 80053; 82306; 82550; 82553; 83735; 83970; 84443; 84484; 85014; 85018; 85025; 85027; 86850; 86900; 86901; 93005; 93010; 94760; 94762; 96374; 96375; 97116; 97162; 97165; 97530; 97535; 99283; 99285; P9016; C9290; J0690; J1100; J1170; J1756; J2250; J2405; J2704; J3010

== ENCOUNTER 2019-03-30 12:41 | Inpatient (IN) | payer OTHER, SELFPAY ==
[2019-03-07 23:31] VITALS: BMI 31.4
[2019-03-30] VITALS (8 sets, daily range): BP systolic 112–169; BP diastolic 50–89; PULSE 89–105; RESP 16–97; TEMP 36.5–37.1; O2SAT 96–100; BMI 31.1
--- NOTE | 2019-03-30 12:41 | DI.RAD.S_ITS ---
PROCEDURE: XR HIP W PEL IF DONE LT 2V INDICATIONS: pain after injury TECHNIQUE: 2 views of the hip were acquired. COMPARISON: None. FINDINGS: Bones: ORIF of the left femoral neck has been performed , as before. There is no change in angulation of the intertrochanteric femur. No suspicious bony lesions. The visualized pelvic ring appears intact. Soft tissues: No suspicious soft tissue calcifications or masses. IMPRESSION: No change in alignment status post ORIF of the left hip. Dictated by: Yue Glass M.D. on 03/30/2019 at 12:36 Approved by: Yue Glass M.D. on 03/30/2019 at 12:37
--- NOTE | 2019-03-30 12:49 | ED.LOWEXIN ---
HPI - Extremity Injury (Lower) General Chief Complaint: Extremity Injury, Lower Stated Complaint: left hip Time Seen by Provider: 03/30/19 12:43 Source: patient Mode of arrival: EMS Limitations: no limitations History of Present Illness HPI Narrative: Patient is a 73-year-old female. Approximately 1 month ago had a ORIF of the left hip after proximal femur fracture. Has had some complications since then. She arrives today because she stated that a couple days ago she was told that the hardware ?had failed ?she does not know specifically what this means. Today she was at the nursing facility where she is staying when she tried to move and heard and felt a pop. Since then has had severe pain in the left hip. It was reported by the EMS there was deformity. Related Data Home Medications Medication Instructions Recorded Confirmed aspirin 325 mg tablet 650 mg PO BEDTIME PRN tab 11/05/18 03/07/19 lisinopril-hydrochlorothiazide 1 tab PO DAILY 03/07/19 03/07/19 olive leaf extract 1,000 mg PO DAILY 03/07/19 03/07/19 Previous Rx's Medication Instructions Recorded amlodipine 5 mg tablet 5 mg PO DAILY #90 tab 12/14/18 levothyroxine 75 mcg tablet 75 mcg PO DAILY #90 tab 02/13/19 ascorbic acid (vitamin C) [Vitamin 500 mg PO BID #30 tab 03/11/19 C] calcium carbonate 1,000 mg PO Q4HR PRN #30 tab 03/11/19 cholecalciferol (vitamin D3) 2,000 unit PO DAILY #30 cap 03/11/19 [Vitamin D3] docusate sodium [DOK] 100 mg PO BID #30 cap 03/11/19 ferrous sulfate [iron] 325 mg PO BID #60 tab 03/11/19 hydrocodone-acetaminophen 1 tab PO Q4HR PRN #15 tab 03/11/19 Allergies Allergy/AdvReac Type Severity Reaction Status Date / Time Xrhqszs-Fvl-Zkk Reductase AdvReac Intermediate myalgias, Verified 11/25/18 16:19 Inhibitor tinnitus [[id number] REDUCTASE INHIBITOR] Review of Systems Constitutional Denies headache(s) and Reports weakness ENT Ears, Nose, Mouth, and Throat: Denies headache(s) Cardiovascular Denies chest pain and Denies dyspnea Respiratory Denies dyspnea Gastrointestinal Gastrointestinal: Denies abdominal pain Musculoskeletal Reports arthralgias (Left hip) and Denies tingling Integumentary/Breasts Denies rash Neurologic Denies headache(s), Denies tingling and Reports weakness Hematologic/Lymphatic Denies easy bleeding and Denies easy bruising [facility] Medical History Hypertension (Acute) Hypothyroid (Acute) Thyroid cancer (Acute) Surgical History (Updated 03/08/19 @ 00:40 by ANDRES Dutta) History of myomectomy (Acute) History of thyroidectomy Family History (Updated 03/08/19 @ 00:41 by ANDRES Dutta) Father Alcoholism Smoker Mother No problems noted. Sister No problems noted. Social History household members: none Smoking Status: Former smoker Tobacco: How many years used: 42 second hand exposure: No alcohol intake: current substance use type: marijuana Social History household members: none Smoking Status: Former smoker Tobacco: How many years used: 42 second hand exposure: No alcohol intake: current substance use type: marijuana Exam Initial Vital Signs Initial Vital Signs: Vital Signs Temperature 98.3 F 03/30/19 12:48 Pulse Rate 105 H 03/30/19 12:48 Respiratory Rate 24 03/30/19 12:48 Blood Pressure 169/74 H 03/30/19 12:48 Pulse Oximetry 100 03/30/19 12:48 Const General: cooperative, No comfortable (Uncomfortable), well groomed and No acute distress Orientation: alert and awake [facility] Head: normal to inspection and normocephalic Resp Effort & Inspection: normal respiratory effort Cardio Rate: tachycardic Pulses: dorsalis pedis present on the left Skin Other: Surgical incision lateral aspect the left hip looks well. The proximal portion does appear to be dehisced a small amount but there is no drainage. No surrounding redness. Extrem Other: Tenderness to palpation left hip. Shortening of the left leg. Psych Appearance: grossly normal and well kempt Course Orders Ordered: ED Orders 03/30/19 12:41 XR hip w pel if done LT 2V Stat 03/30/19 12:49 Basic Metabolic Panel Stat Complete Blood Count AUTO DIFF Stat Partial Thromboplastin Time Stat Prothrombin Time INR Stat Type and Screen Stat 03/30/19 13:51 Consult to Orthopedic Surgery Routine Hydromorphone HCl (Dilaudid) 1 mg IV Q4HR PRN PRN Reason: Pain, Mild (1-3) Ondansetron HCl (Zofran) 4 mg IV Q4HR PRN PRN Reason: Nausea And Vomiting Discontinued Medications Hydromorphone HCl (Dilaudid) 1 mg IV NOW ONE Stop: 03/30/19 12:49 Last Admin: 03/30/19 12:55 Dose: 1 mg Hydromorphone HCl (Dilaudid) 1 mg IV NOW ONE Stop: 03/30/19 13:39 Last Admin: 03/30/19 13:59 Dose: 1 mg Vital Signs - 8 hr 03/30/19 12:48 03/30/19 13:01 03/30/19 14:35 Temperature 98.3 F Pulse Rate 105 H 102 H 102 H Respiratory Rate 24 97 H 18 Blood Pressure 169/74 H Blood Pressure [Left Arm] 162/71 H 164/85 H Pulse Oximetry 100 100 99 03/30/19 14:42 Temperature Pulse Rate 102 H Respiratory Rate 18 Blood Pressure 164/85 H Blood Pressure [Left Arm] Pulse Oximetry 99 MDM - Extremity Injury (Lower) Imaging Data X-ray hip: Radiologist's impression: [place] [address] XRay Report Signed Patient: Avery Singh KMR#: [id number] : 6Acct:[id number] Age/Sex: 73 / FDate of Service: 03/30/19 Loc: ED Accession Number: [id number] Procedure: XR hip w pel if done LT 2V Ordering Provider: Dinesh Hwang D.O. PROCEDURE: XR HIP W PEL IF DONE LT 2V INDICATIONS: pain after injury TECHNIQUE: 2 views of the hip were acquired. COMPARISON: None. FINDINGS: Bones: ORIF of the left femoral neck has been performed , as before. There is no change in angulation of the intertrochanteric femur. No suspicious bony lesions. The visualized pelvic ring appears intact. Soft tissues: No suspicious soft tissue calcifications or masses. IMPRESSION: No change in alignment status post ORIF of the left hip. Dictated by: Yue Glass M.D. on 03/30/2019 at 12:36 Approved by: Yue Glass M.D. on 03/30/2019 at 12:37 MDM Narrative Medical decision making narrative: Patient is neurovascularly intact. Radiology reports that the left hip hardware appears unchanged from an x-ray a couple days ago that was done in the orthopedic clinic. Patient cannot ambulate. Is in quite a bit of discomfort left hip. Discussed the case with Dr. Cam with Orthopedics. Will admit under his service. Informed the patient of the decision to admit. Orthopedics will discuss treatment options and potential surgery with the patient. She expressed understanding and agreement with plan. Discharge Plan Departure Patient Disposition: Admitted As Inpatient Clinical Impression: Acute pain of left hip Discharge Date/Time: 03/30/19 14:45 Interventions: ED Discharge Assessment Last Done: 03/30/19 14:42 Admit Date/Time: 03/30/19 14:43 Admit Provider: Cyrus Cma
[2019-03-30] MEDS: HYDROMORPHONE 1 MG INJ IV ×2 (12:55→13:59)
--- NOTE | 2019-03-30 14:13 | PC.NURSE ---
left hip incision site no steri stip site opening approx 5mm. cleaned irrigated with ns, steri strip applied. +distal cms intact
[2019-03-30 15:11] LABS: Add Manual Diff / Slide Review NO; Basophils Absolute Auto 100 /uL (0-100); Basophils Percent Auto 0.4 % (0-2); Eosinophils Absolute Auto 0 /uL (0-450); Eosinophils Percent Auto 0.1 % (2-4); Hematocrit 33.3 % (36-46); Hemoglobin 11.1 g/dL (12.0-16.0); Lymphocytes Absolute Auto 800 /uL (1100-4500); Mean Corpuscular HGB Conc 33.4 % (30-36); Mean Corpuscular Hemoglobin 32.2 PG (26-34); Mean Corpuscular Volume 96.3 fL (80-100); Monocytes Absolute Auto 700 /uL (0-900); Monocytes Percent Auto 3.9 % (3-14); Neutrophils Absolute Auto 15200 /uL (1500-7000); Neutrophils Percent Auto 90.6 % (50-75); Platelet Count 399 X10^3/uL (150-400); Red Blood Cell Count 3.46 X10^6/uL (4.0-5.2); Red Cell Distribution Width 14.1 % (11.6-14.8); White Blood Cell Count 16.8 X10^3/uL (4.5-11.0)
[2019-03-30 15:21] LABS: INR 1.1 (0.9-1.3); Prothrombin Time 12.7 SECONDS (10.1-12.7)
[2019-03-30 15:23] LABS: PTT Partial Thromboplastin Tim 28 SECONDS (26.4-36.2)
[2019-03-30 15:25] LABS: BUN Creatinine Ratio 23.3 (6-22); Blood Urea Nitrogen 14 mg/dL (7-17); Calcium 9.6 mg/dL (8.4-10.2); Carbon Dioxide 23 mmol/L (22-32); Chloride 102 mmol/L (98-107); Estimated Glomerular Filt Rate > 60.0 mL/min (>60); Glucose 109 mg/dL (80-110); HEMOLYSIS < 15 (0-50); Potassium 3.7 mmol/L (3.4-5.1); Sodium 135 mmol/L (137-145)
--- NOTE | 2019-03-30 15:26 | P.HP_ITS ---
History of Present Illness Date Patient Seen: 03/30/19 Time Patient Seen: 15:26 Chief complaint: left hip Narrative: 73-year-old female with severe left hip pain. She fell at home 3 weeks ago and sustained a intertrochanteric hip fracture. This was fixed with ORIF by Dr. Baer on 03/07/2019. She had been recovering in the rehab center. She went home a few days ago for a home visit and her left hip has been bothering her more since then. She was seen in the office the next day on 10/03 and x-rays at that time showed collapse of the fixation and loss of reduction of the fracture. Evidently they had been discussing setting her up in a few weeks for revision surgery. Today at the rehab center, they were rolling her and she felt a pop in the left hip and has had severe 9/10 pain since in the left hip. She was brought to the emergency room and admitted for pain control. She has significant social concerns with everything going on right now. 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 This is going to be very difficult to manage her business right now. Patient History Medical History Hypertension (Acute) Hypothyroid (Acute) Thyroid cancer (Acute) Surgical History History of myomectomy (Acute) History of thyroidectomy Family History (Updated 03/08/19 @ 00:41 by ANDRES Dutta) Father Alcoholism Smoker Mother No problems noted. Sister No problems noted. Social History household members: none Smoking Status: Former smoker Tobacco: How many years used: 42 second hand exposure: No alcohol intake: current substance use type: marijuana Family & Social History Family History Father Alcoholism Smoker Mother No problems noted. Sister No problems noted. Social History: household members none Safety & Behavioral: Feels Safe in Current Yes Environment Tobacco & Substance use: Smoking Status Former smoker alcohol intake current alcohol intake frequency 3 or more drinks per day Substance Use Type marijuana Meds Home Medications Medication Instructions Recorded Confirmed Type aspirin 325 mg tablet 650 mg PO BEDTIME PRN tab 11/05/18 03/07/19 History amlodipine 5 mg tablet 5 mg PO DAILY #90 tab 12/14/18 03/07/19 Rx levothyroxine 75 mcg tablet 75 mcg PO DAILY #90 tab 02/13/19 03/07/19 Rx lisinopril-hydrochlorothiazide 1 tab PO DAILY 03/07/19 03/07/19 History olive leaf extract 1,000 mg PO DAILY 03/07/19 03/07/19 History ascorbic acid (vitamin C) [Vitamin 500 mg PO BID #30 tab 03/11/19 Rx C] calcium carbonate 1,000 mg PO Q4HR PRN #30 tab 03/11/19 Rx cholecalciferol (vitamin D3) 2,000 unit PO DAILY #30 cap 03/11/19 Rx [Vitamin D3] docusate sodium [DOK] 100 mg PO BID #30 cap 03/11/19 Rx ferrous sulfate [iron] 325 mg PO BID #60 tab 03/11/19 Rx hydrocodone-acetaminophen 1 tab PO Q4HR PRN #15 tab 03/11/19 Rx Allergies Allergy/AdvReac Type Severity Reaction Status Date / Time Tnfkkta-Fyn-Zvb Reductase AdvReac Intermediate myalgias, Verified 11/25/18 16:19 Inhibitor tinnitus [[id number]-FAU-SIY REDUCTASE INHIBITOR] Review of Systems Constitutional Constitutional: Denies chills and Denies fever(s) Cardiovascular Cardiovascular: Denies chest pain Exam Vital Signs (past 8 hours): - 03/30/19 12:48 03/30/19 13:01 03/30/19 14:35 Temperature 98.3 F Pulse Rate 105 H 102 H 102 H Respiratory Rate 24 97 H 18 Blood Pressure 169/74 H Blood Pressure [Left Arm] 162/71 H 164/85 H Pulse Oximetry 100 100 99 03/30/19 14:42 03/30/19 15:00 Temperature 98.8 F Pulse Rate 102 H 102 H Respiratory Rate 18 20 Blood Pressure 164/85 H 138/89 Blood Pressure [Left Arm] Pulse Oximetry 99 100 Oxygen Delivery Method Room Air Oxygen Flow Rate 2 Const Orientation: alert and oriented x3 Resp Auscultation: clear to auscultation bilaterally Cardio Rate: regular rate Rhythm: regular rhythm Extrem Other: Left lower extremity -incisions clean dry intact. Evidently the upper part of her upper incision had been slightly spread apart 5 mm wide in the emergency room, but there was nothing deep. This was just cleaned and Steri- Stripped. There is no drainage, erythema, or induration. She has significant firm swelling anterior to the incision consistent with normal postoperative scarring. She can easily wiggle her ankle and toes up and down. 2+ distal pulse, intact sensation throughout the leg and soft calf. Objective Imaging X-rays left hip: My impression: Compared to her intraoperative films, there has been collapse of the fixation with penetration of the screw up towards the acetabulum. However, these are unchanged since her x-rays in the office 3 days ago. Labs Result Diagrams: 03/30/19 15:00 03/30/19 15:00 Labs: Laboratory Results - last 24 hr 03/30/19 03/30/19 15:00 15:00 WBC 16.8 H RBC 3.46 L Hgb 11.1 L Hct 33.3 L MCV 96.3 MCH 32.2 MCHC 33.4 RDW 14.1 Plt Count 399 Neut % (Auto) 90.6 H Lymph % (Auto) 5.0 L [place] % (Auto) 3.9 Eos % (Auto) 0.1 L Baso % (Auto) 0.4 Neut # (Auto) 08226 H Lymph # (Auto) 800 L [place] # (Auto) 700 Eos # (Auto) 0 Baso # (Auto) 100 PT 12.7 INR 1.1 APTT 28 Assessment & Plan Assessment & Plan narrative: Left hip fracture -status post ORIF, now with collapse of the fracture and failure of hardware. She is going to need a revi micah surgery in the future for this. Right now, the main issue was pain control and we have admitted her to the hospital. I have discussed her admission with Dr. Baer, who is out of town for the weekend. Most likely her revision surgery schedule will be moved up to next week, but the main issue is pain control for right now. I am going to put her on Lovenox while she is here in the hospital.
[2019-03-30] MEDS: MORPHINE 2 MG/ML INJ 1.5 MG IV (15:55)
[2019-03-30] MEDS: ASCORBIC ACID 500 MG TABLET PO (21:02)
[2019-03-30] MEDS: DOCUSATE 100 MG CAPSULE PO (21:02)
[2019-03-30] MEDS: FERROUS SULFATE 325 MG TABLET PO (21:02)
[2019-03-30] MEDS: HYDROCODONE/ACET 5/325 TABLET 2 TAB PO (21:05)
[2019-03-31] VITALS (9 sets, daily range): BP systolic 103–146; BP diastolic 50–71; PULSE 88–97; RESP 14–18; TEMP 36.5–37.3; O2SAT 95–100
[2019-03-31] MEDS: HYDROCODONE/ACET 5/325 TABLET 2 TAB PO ×4 (04:05→20:37)
[2019-03-31] MEDS: LEVOTHYROXINE 75 MCG TABLET PO (06:29)
--- NOTE | 2019-03-31 06:50 | PC.NURSE ---
Pt is AxOx3, VSS, tolerating room air. Pain controlled with 2tabs Vicodin overnight, and 1tab this morning; mostly only hurts if moving. Tachycardic at times, HR 90-102 Pt was very very sleepy for most of shift, wasn't drinking much and not receiving IVF so she had a low output from caraballo. Caraballo with 250cc rajani urine; encouraged pt to drink more now that shes more awake, contacted Dr. Cam who ordered a one time 1L NS bolus to help her out a bit and then just encourage PO intake after. Previous surgical wounds are clean, dry, and intact, covered with steri strips. Bruising around incision
[2019-03-31] MEDS: HYDROCODONE/ACET 5/325 TABLET 1 TAB PO (06:54)
[2019-03-31] MEDS: SODIUM CHLORIDE 0.9% 1,000 ML 1000 ML IV (06:55)
--- NOTE | 2019-03-31 07:30 | PM.PN.1 ---
Subjective Date Patient Seen: 03/31/19 Time Patient Seen: 07:30 Interval history: Doing much better today. Pain level is about a 2/10. She was quite sedated from her medication last night while trying to get the pain levels down but she is much better now. Exam Vital Signs (past 8 hours): - 03/30/19 23:45 03/31/19 03:10 Temperature 97.7 F 98.6 F Pulse Rate 103 H 92 H Respiratory Rate 17 16 Blood Pressure 112/50 L 115/50 L Pulse Oximetry 96 95 Fraction of Inspired Oxygen 28 Oxygen Delivery Method Room Air Oxygen Flow Rate 2 Const Orientation: alert and oriented x3 Extrem Other: Incision area clean dry intact, soft calf, 2+ pulse Objective Labs Result Diagrams: 03/30/19 15:00 03/30/19 15:00 Labs: Laboratory Results - last 24 hr 03/30/19 03/30/19 03/30/19 15:00 15:00 15:00 WBC 16.8 H RBC 3.46 L Hgb 11.1 L Hct 33.3 L MCV 96.3 MCH 32.2 MCHC 33.4 RDW 14.1 Plt Count 399 Neut % (Auto) 90.6 H Lymph % (Auto) 5.0 L [place] % (Auto) 3.9 Eos % (Auto) 0.1 L Baso % (Auto) 0.4 Neut # (Auto) 19839 H Lymph # (Auto) 800 L [place] # (Auto) 700 Eos # (Auto) 0 Baso # (Auto) 100 PT 12.7 INR 1.1 APTT 28 Sodium 135 L Potassium 3.7 Chloride 102 Carbon Dioxide 23 BUN 14 Creatinine 0.60 Estimated GFR > 60.0 BUN/Creatinine Ratio 23.3 H Glucose 109 Calcium 9.6 Blood Type Antibody Screen 03/30/19 15:00 WBC RBC Hgb Hct MCV MCH MCHC RDW Plt Count Neut % (Auto) Lymph % (Auto) [place] % (Auto) Eos % (Auto) Baso % (Auto) Neut # (Auto) Lymph # (Auto) [place] # (Auto) Eos # (Auto) Baso # (Auto) PT INR APTT Sodium Potassium Chloride Carbon Dioxide BUN Creatinine Estimated GFR BUN/Creatinine Ratio Glucose Calcium Blood Type B Positive Antibody Screen Negative Assessment & Plan Assessment & Plan narrative: Failed left hip fracture repair. We will have Physical therapy mobilize her cautiously today and see how she does with this. May possibly be able to go back to the snf or just stay in the hospital until the revision surgery. I will try to work out logistics with Dr. Baer today.
[2019-03-31] MEDS: FERROUS SULFATE 325 MG TABLET PO ×2 (08:55→20:33)
[2019-03-31] MEDS: CHOLECALCIFEROL (VITAMIN D3) 1,000 UNIT TABLET 2000 UNIT PO (08:55)
[2019-03-31] MEDS: ENOXAPARIN 40 MG/0.4 ML SYRINGE SUBCUT (09:00)
[2019-03-31] MEDS: DOCUSATE 100 MG CAPSULE PO ×2 (09:00→20:33)
[2019-03-31] MEDS: AMLODIPINE 5 MG TABLET PO (09:00)
[2019-03-31] MEDS: ASCORBIC ACID 500 MG TABLET PO ×2 (09:01→20:33)
[2019-03-31] MEDS: hydroCHLOROthiazide 25 MG TABLET PO (09:01)
--- NOTE | 2019-03-31 10:45 | PT.IIE ---
Surgical History (Last Reviewed 03/30/19 @ 15:31 by Cyrus Cam MD) History of myomectomy (Acute) History of thyroidectomy Medical History (Last Reviewed 03/30/19 @ 15:31 by Cyrus Cam MD) Hypertension (Acute) Hypothyroid (Acute) Thyroid cancer (Acute) Physical Therapy Inpatient Evaluation/Re-Eval M1 PT/OT-IP Prior Functional Status Start: 03/31/19 13:06 Freq: NEEDED Status: Active Protocol: Document 03/31/19 10:45 RCC (Rec: 03/31/19 13:16 RCC [id number]) Medical Review Prior Functional Status Medical History Reviewed Yes Mobility and Gait prior to initial hip surgery on 03/07/19, indep. gait/ mobility without device Activities of Daily Living and IADL's Indep I/ADLs prior to initial hip surgery 03/07/19 Social History Household Members none Living Arrangements House Number of Floors (Floors) Two Floors Number of Stairs To Enter/Railing? 4 SE L ascending rail- friend can stay with her upon d/c if needed Home Equipment Front Wheel Walker Straight Cane Bedside Commode Leg High Man Additional Social History Comment Pt with GLF and L hip ORIF with orders for TDWB 25- 50 lb WB max. Pt went to [facility], was near d/c home when experienced increased hip pain , imaging found collapse of fixation and loss of reduction in the L hip. Plan is for further surgical intervention to stabilize by Dr Baer. M2 PT-IP Current Condition Start: 03/31/19 13:06 Freq: NEEDED Status: Active Protocol: Document 03/31/19 10:45 RCC (Rec: 03/31/19 13:16 [facility] [id number]) Physical Therapy Current Condition Current Condition Evaluation Date 03/31/19 Treatment Diagnosis L hip pain, impaired activity tolerance, muscle weakness Weight Bearing Status Weight Bearing Status Touch Down Weight Bearing Allowed Weight Bearing Amount (enter % 25-50 lbs max or #) (%) M3 PT-IP Subjective Start: 03/31/19 13:06 Freq: NEEDED Status: Active Protocol: Document 03/31/19 10:45 RCC (Rec: 03/31/19 13:16 RCC [id number]) Subjective Physical Therapy Visit Type Type Initial Evaluation Visit Start Time 10:45 Visit Stop Time 11:10 Total Visit Minutes 25 Notes PT treasure Monroe assisted with session Number of STRUCTURAL RIGGER Visits 0 Physical Therapy Visit Comments Patient Comments pt cannot wait to get her hip redone to stabilize it Patient Goals to stabilize hip and get back to work M4 PT-IP Mobility and Gait Start: 03/31/19 13:06 Freq: NEEDED Status: Active Protocol: Document 03/31/19 10:45 RCC (Rec: 03/31/19 13:16 [facility] [id number]) PT-Bed Mobility Assessment Supine to Sit Supine to Sit Moderate Assistance 2 Person Assistance Head of Bed Elevated Sit to Supine Sit to Supine Moderate Assistance 2 Person Assistance Scooting Scooting to Edge of Bed Minimal Assistance PT-Transfer Assessment Sit to and From Stand Sit to and from Stand Contact Guard Assistance 1 Person Assistance Use of Upper Extremities Comments Mobility Comments Pt maintained TDWB LLE, but c/ o increased pain and sat 2 sec after full stand, refusing to transfer. PT-Balance Assessment Sitting Balance and Reactions Static Sitting Balance Ability Good Dynamic Sitting Balance Ability Good Standing Balance and Reactions Static Standing Balance Ability Fair Dynamic Standing Balance Ability Poor Device Used FWW M5 PT-IP Objective Assessments Start: 03/31/19 13:06 Freq: NEEDED Status: Active Protocol: Document 03/31/19 10:45 RCC (Rec: 03/31/19 13:16 [facility] [id number]) Orientation Orientation/Cognition Level of Alertness Alert Strength Lower Extremity Strength Assessment Left Impaired Comments Strength Comments unable to perform indep SLR of the LLE Sensation Assessment Sensation Gross Sensation WNL M6 PT-IP Treatment Start: 03/31/19 13:06 Freq: NEEDED Status: Active Protocol: Document 03/31/19 10:45 RCC (Rec: 03/31/19 13:16 [facility] [id number]) Physical Therapy Treatment Exercises Exercises Ankle Pumps Education Education Provided Weight Bearing Status Safety M7 PT-IP Assessment and Plan Start: 03/31/19 13:06 Freq: NEEDED Status: Active Protocol: Document 03/31/19 10:45 RCC (Rec: 03/31/19 13:16 [facility] [id number]) PT Summary Assessment and Plan Potential Rehabilitation Potential Good Status of Condition at Evaluation Evolving Summary Impairments Pain Strength Balance Bed Mobility Transfers Gait Activity Tolerance Assessment Summary Pt at this time requires 1-2 assistance with all mobility, and pain too high for her to tolerate transfer this morning . Pt appears to be motivated, but pain too high at this time . Overall, pt maintained TDWB on the LLE in standing, she cannot perform an indep SLR ( requires assistance with LLE management). It is unclear if pt will have further surgical intervention tomorrow or at a later time, but at this time pt is not at a safe mobility level to return home when medically stable. Goals Bed Mobility Goal Contact Guard Assistance Transfer Goal Contact Guard Assistance Gait Goal Contact Guard Assistance Four Wheel Walker Gait Distance 5 Days to Meet Goals 5 Frequency of Treatment Frequency Of Treatment Twice a Day Treatment Plan Physical Therapy Treatment Plan Bed Mobility Training Transfer Training Gait Training Therapeutic Exercise Balance Retraining Discharge Planning Hot or Cold Pack Neuromuscular Re-ed Other Recommendations and Next Treatment transfers, standing tolerance Focus Recommendations To Nursing Amount of Assist Needed 2 Person Assist Discharge Recommendations PT Discharge Recommendations SNF Rehab
[2019-03-31] MEDS: LISINOPRIL 20 MG TABLET PO (11:30)
--- NOTE | 2019-03-31 13:17 | PC.NURSE ---
Pt given two vicodin around 1120, helpful for pain. Pt has not been up out of bed yet. She has a healing incision to her l.upper hip. Area is bruised and swollen with steri strips in place. Pt has been sleeping soundly most of the shift. She is easily awakened when talked to and RR are wnl.
--- NOTE | 2019-03-31 14:08 | PT.IPTN ---
Current Diagnoses Breakdown (mechanical) of internal fixation device of left femur, initial encounter (03/30/19) Physical Therapy Treatment Note M2 PT-IP Current Condition Start: 03/31/19 13:06 Freq: NEEDED Status: Active Protocol: Document 03/31/19 10:45 RCC (Rec: 03/31/19 13:16 RCC [id number]) Physical Therapy Current Condition Current Condition Evaluation Date 03/31/19 Treatment Diagnosis L hip pain, impaired activity tolerance, muscle weakness Weight Bearing Status Weight Bearing Status Touch Down Weight Bearing Allowed Weight Bearing Amount (enter % 25-50 lbs max or #) (%) M3 PT-IP Subjective Start: 03/31/19 13:06 Freq: NEEDED Status: Active Protocol: Document 03/31/19 13:25 CLB (Rec: 03/31/19 14:07 CLB [id number]) Subjective Physical Therapy Visit Type Type Treatment Note Visit Start Time 13:25 Visit Stop Time 13:35 Total Visit Minutes 10 Notes PT treasure Monroe assisted with session Number of PRIMER WATERPROOFING MACHINE ADJUSTER Visits 1 Physical Therapy Visit Comments Patient Comments Pt initially agreed to do therapy. Therapy Pain Assessment Pain When Pain Assessed During Mobility Pain Present Pain Present Pain Reported Location Left Hip Intensity 5 Scale Used Numeric (1 - 10) M4 PT-IP Mobility and Gait Start: 03/31/19 13:06 Freq: NEEDED Status: Active Protocol: Document 03/31/19 13:25 CLB (Rec: 03/31/19 14:07 CLB [id number]) PT-Transfer Assessment Comments Mobility Comments Assisted pt with moving LLE towards right side of bed but pt stated pain was to high. M5 PT-IP Objective Assessments Start: 03/31/19 13:06 Freq: NEEDED Status: Active Protocol: Document 03/31/19 10:45 RCC (Rec: 03/31/19 13:16 RCC [id number]) Orientation Orientation/Cognition Level of Alertness Alert Strength Lower Extremity Strength Assessment Left Impaired Comments Strength Comments unable to perform indep SLR of the LLE Sensation Assessment Sensation Gross Sensation WNL M6 PT-IP Treatment Start: 03/31/19 13:06 Freq: NEEDED Status: Active Protocol: Document 03/31/19 10:45 RCC (Rec: 03/31/19 13:16 RCC [id number]) Physical Therapy Treatment Exercises Exercises Ankle Pumps Education Education Provided Weight Bearing Status Safety M7 PT-IP Assessment and Plan Start: 03/31/19 13:06 Freq: NEEDED Status: Active Protocol: Document 03/31/19 13:25 CLB (Rec: 03/31/19 14:07 CLB [id number]) PT Summary Assessment and Plan Summary Assessment Summary PT respectfully refused to move any further and asked the therapy team to return tomorrow. Pt also refused transfer to chair with devin lift. Pt left with SCD on each LE , bed alarm on and call light within reach. Goals Bed Mobility Goal Contact Guard Assistance Transfer Goal Contact Guard Assistance Gait Goal Contact Guard Assistance Four Wheel Walker Gait Distance 5 Days to Meet Goals 5 Frequency of Treatment Frequency Of Treatment Twice a Day Treatment Plan Physical Therapy Treatment Plan Bed Mobility Training Transfer Training Gait Training Therapeutic Exercise Balance Retraining Discharge Planning Hot or Cold Pack Neuromuscular Re-ed Other Recommendations and Next Treatment transfers, standing tolerance Focus Recommendations To Nursing Amount of Assist Needed 2 Person Assist Discharge Recommendations PT Discharge Recommendations SNF Rehab
--- NOTE | 2019-03-31 15:38 | CM.DANOTE ---
Discharge Planning/Care Management DCP: assessment: case received, EMR reviewed and went to room to meet with pt. Introduced self and role. Pt is a 73 year old female who has been at [facility] for rehab and recovery under her [facility] benefit after a fall with fracture and ORIF surgical repair by Dr. Baer March 07. Pt was nearing readiness for d/c to home setting when she started to have increased pain, was seen in ortho clinic, hardware failure combined with osteoporosis was noted and surgery was planned for April [address]. [address] Cam has admitted her yesterday for pain control and he expects Dr. Baer to return tomorrow and likely take pt to surgery as soon as this can be scheduled. [facility] confirms they are holding her bed and pt confirms she expects to return there for rehab after this new surgery. OF NOTE: pt will need another snf auth from [place]: will plan on OT/PT seeing pt after surgery to help gather needed information for the authorization but do not anticipate that this will be a problem. P: d/c to [facility] as per above....DCPlanning team will be following. PASRR: will not be needed for the return to [facility] unless the information on the original PASRR has changed. CM Discharge Assessment Start: 03/31/19 15:36 Freq: Status: Active Protocol: Document 03/31/19 15:37 ITV (Rec: 03/31/19 15:38 ITV [id number]) Discharge Planning Assessment Advance Directives? No History Provided By Patient Medical Record Has Patient been admitted in last 30 No days? Prior Living Arrangements House Comment has been rehabbing at [facility] Household Members none Patient/Family Preference Intermediate Facility Discharge Plan Intermediate Facility Whiteboard Updated in Patient Room with Yes name and ext. # of Coffee Brewer Review Status In Process Next Review Type Continued Stay Review
--- NOTE | 2019-03-31 16:15 | PC.NURSE ---
Addendum entered by Elvia Armijo R.N. 03/31/19 20:41: Pt had relatively uneventful evening. Med again @ 2030 for discomfort. HL intact/patent. Lopez cath patent clear yellow urine. Call light w/in reach, bed alarm on for pt safety. Continue w/plan of care. Original Note: Pt resting quietly at this time. Med at 1540 for discomfort w/fair relief. Lungs clear, SpO2 94% RA Steri strips to left hip CDI. HL LAC intact/patent. Lopez cat patent clear yellow urine. Call light w/in reach, bed alarm on for pt safety.
[2019-04-01] VITALS (7 sets, daily range): BP systolic 114–147; BP diastolic 50–63; PULSE 88–110; RESP 14–18; TEMP 36.6–36.8; O2SAT 94–99
[2019-04-01] MEDS: HYDROCODONE/ACET 5/325 TABLET 1 TAB PO ×3 (00:50→09:45)
[2019-04-01] MEDS: LEVOTHYROXINE 75 MCG TABLET PO (05:36)
--- NOTE | 2019-04-01 06:14 | PC.NURSE ---
Pain level 4-5/10 medicated x2 with 1 tab. Vicodin. Slept most of the shift, will cont. with POC & monitor.
[2019-04-01] MEDS: ENOXAPARIN 40 MG/0.4 ML SYRINGE SUBCUT (09:44)
[2019-04-01] MEDS: ASCORBIC ACID 500 MG TABLET PO ×2 (09:45→19:15)
[2019-04-01] MEDS: DOCUSATE 100 MG CAPSULE PO ×2 (09:45→19:15)
[2019-04-01] MEDS: AMLODIPINE 5 MG TABLET PO (09:45)
[2019-04-01] MEDS: FERROUS SULFATE 325 MG TABLET PO ×2 (09:45→19:15)
[2019-04-01] MEDS: CHOLECALCIFEROL (VITAMIN D3) 1,000 UNIT TABLET 2000 UNIT PO (09:45)
[2019-04-01] MEDS: LISINOPRIL 20 MG TABLET PO (09:45)
[2019-04-01] MEDS: hydroCHLOROthiazide 25 MG TABLET PO (09:45)
--- NOTE | 2019-04-01 11:21 | PT.IPTN ---
Current Diagnoses Breakdown (mechanical) of internal fixation device of left femur, initial encounter (03/30/19) Physical Therapy Treatment Note M2 PT-IP Current Condition Start: 03/31/19 13:06 Freq: NEEDED Status: Active Protocol: Document 03/31/19 10:45 RCC (Rec: 03/31/19 13:16 RCC [id number]) Physical Therapy Current Condition Current Condition Evaluation Date 03/31/19 Treatment Diagnosis L hip pain, impaired activity tolerance, muscle weakness Weight Bearing Status Weight Bearing Status Touch Down Weight Bearing Allowed Weight Bearing Amount (enter % 25-50 lbs max or #) (%) M3 PT-IP Subjective Start: 03/31/19 13:06 Freq: NEEDED Status: Active Protocol: Document 04/01/19 10:40 CLB (Rec: 04/01/19 11:21 CLB [id number]) Subjective Physical Therapy Visit Type Type Treatment Note Visit Start Time 10:40 Visit Stop Time 11:05 Total Visit Minutes 25 Number of TOWER AIR TRAFFIC CONTROL SPECIALIST Visits 2 Physical Therapy Visit Comments Patient Comments Pt agreeable to transfer to chair. Pt stated she would be having GIA tomorrow. Therapy Pain Assessment Pain When Pain Assessed During Mobility Pain Present Pain Present Pain Reported Location Left Hip Intensity 6 Scale Used Numeric (1 - 10) M4 PT-IP Mobility and Gait Start: 03/31/19 13:06 Freq: NEEDED Status: Active Protocol: Document 04/01/19 10:40 CLB (Rec: 04/01/19 11:21 CLB [id number]) PT-Bed Mobility Assessment Supine to Sit Supine to Sit Maximum Assistance 1 Person Assistance Head of Bed Elevated Bedrails Sit to Supine Sit to Supine Moderate Assistance 1 Person Assistance Head of Bed Elevated Scooting Scooting to Edge of Bed Maximum Assistance PT-Transfer Assessment Sit to and From Stand Sit to and from Stand Minimal Assistance 1 Person Assistance Use of Upper Extremities Equipment Transfer Assistive Device Gait Belt Front Wheeled Walker Transfers Transfer Destination Chair Transfer Technique Stand Step Pivot Transfer Ability Level of Assist Minimal Assistance Comments Mobility Comments Pt required Max A with use of draw sheet to move to EOB. Pt required Min A for stand pivot transfer while properly using TDWB on LLE. Gait Assessment Comments Gait Comments unable Stair Climbing Assessment Comments Stair Climbing Comments unable M5 PT-IP Objective Assessments Start: 03/31/19 13:06 Freq: NEEDED Status: Active Protocol: Document 03/31/19 10:45 RCC (Rec: 03/31/19 13:16 RCC [id number]) Orientation Orientation/Cognition Level of Alertness Alert Strength Lower Extremity Strength Assessment Left Impaired Comments Strength Comments unable to perform indep SLR of the LLE Sensation Assessment Sensation Gross Sensation WNL M6 PT-IP Treatment Start: 03/31/19 13:06 Freq: NEEDED Status: Active Protocol: Document 03/31/19 10:45 RCC (Rec: 03/31/19 13:16 RCC [id number]) Physical Therapy Treatment Exercises Exercises Ankle Pumps Education Education Provided Weight Bearing Status Safety M7 PT-IP Assessment and Plan Start: 03/31/19 13:06 Freq: NEEDED Status: Active Protocol: Document 04/01/19 10:40 CLB (Rec: 04/01/19 11:21 CLB [id number]) PT Summary Assessment and Plan Summary Impairments Pain Strength Balance Bed Mobility Transfers Gait Activity Tolerance Assessment Summary Pt able to get to EOB with Max A x1 and Min A for sit-stand, pt able to transfer to chair using TDWB with Min A. Pt performed AP in bed before transfer. Pt left in chair with all needs within reach. Goals Bed Mobility Goal Contact Guard Assistance Transfer Goal Contact Guard Assistance Gait Goal Contact Guard Assistance Four Wheel Walker Gait Distance 5 Days to Meet Goals 5 Frequency of Treatment Frequency Of Treatment Twice a Day Treatment Plan Physical Therapy Treatment Plan Bed Mobility Training Transfer Training Gait Training Therapeutic Exercise Balance Retraining Discharge Planning Hot or Cold Pack Neuromuscular Re-ed Other Recommendations and Next Treatment transfer back to bed. Focus Recommendations To Nursing Amount of Assist Needed 2 Person Assist Discharge Recommendations PT Discharge Recommendations SNF Rehab
[2019-04-01] MEDS: diazePAM 5 MG TABLET PO ×2 (12:25→19:14)
--- NOTE | 2019-04-01 12:36 | CM.DPC ---
DCP Cont: Checked in with patient, had transferred from bed to chair with physical therapy. Patient alert and oriented. She has been recently at [facility] secondary to hip surgery. Patient stated, she is having her surgery tomorrow. Plan is for her to go back to [facility]. Will need new authorization from [place]. Will continue to send therapy notes to [place] for update. P: DCP to continue to follow closely. Will contact and update [place] when patient is closer to discharge, to enable her to return to [facility]. Monica Rob RN/Anchor Operator
[2019-04-01] MEDS: HYDROCODONE/ACET 5/325 TABLET 2 TAB PO ×3 (13:39→22:03)
--- NOTE | 2019-04-01 14:09 | PT.IPTN ---
Current Diagnoses Breakdown (mechanical) of internal fixation device of left femur, initial encounter (03/30/19) Surgery Performed Operation Date: 04/02/19 12:15 <No data on this case meets the specified criteria> Physical Therapy Treatment Note Notes RN requesting that pt continue to rest the remainder of the day. Pt will be having THR tomorrow. Acute PT will sign off and await post-op orders.
--- NOTE | 2019-04-01 17:01 | PM.PNPO.1 ---
Subjective Date Patient Seen: 04/01/19 Time Patient Seen: 17:01 Interval history: POD #25 status post open reduction internal fixation left proximal femur fracture with a [employer] TFN nail 105 degree helical blade 36 mm locking screw and as the 7.3 by 90 mm long threaded AO screw with Dr. Baer. She had been recovering in the rehab center. She went home a few days ago for a home visit and her left hip has been bothering her more since then. She was seen in the office the next day on 02/24/19 and x-rays at that time showed collapse of the fixation and loss of reduction of the fracture. Patient is doing well today. No complaints of pain. Exam Vital Signs (past 8 hours): - 04/01/19 09:45 04/01/19 13:54 04/01/19 15:51 Temperature 98.1 F 97.9 F Pulse Rate 94 H 110 H 99 H Respiratory Rate 16 18 Blood Pressure 125/50 L 147/63 H 133/56 L Pulse Oximetry 96 96 Fraction of Inspired Oxygen 21 Oxygen Delivery Method Room Air Oxygen Flow Rate 0 Narrative Exam Narrative: Patient lying in bed in no acute distress. She is alert orient x3. Calves are soft, compressible, nontender bilaterally. He is able to actively dorsiflex plantar flex. Pulses are symmetrical. Objective Labs Result Diagrams: 03/30/19 15:00 03/30/19 15:00 Assessment & Plan Post-op Postoperative Procedures Operation Date: 04/02/19 12:15 <No data on this case meets the specified criteria> Patient will be NPO after midnight. Hold Lovenox. Continue current pain management. Surgical intervention likely within the next 24-48 hours.
--- NOTE | 2019-04-01 17:23 | PC.NURSE ---
Evening note: Avery is drowsy, dozing in bed. Wakes to voice, she is oriented x 3 and situation. VS stable. Reports pain much better now after medicated with [place] and Valium, reported awful spasms and cramps to LLE. She requests for rest at this time, refused meal. Cottage cheese placed in fridge for later. Aware she is to be NPO at midnight for surgery tomorrow. Reminded to call nurse with call button if she has any needs/concerns, strict fall precautions in place.
[2019-04-01] MEDS: LACTATED RINGERS 1,000 ML 125 ML IV (17:53)
[2019-04-02] VITALS (21 sets, daily range): BP systolic 124–156; BP diastolic 53–82; PULSE 83–107; RESP 14–20; TEMP 36.3–37.6; O2SAT 90–100; BMI 31.1
--- NOTE | 2019-04-02 | DI.RAD.S_ITS ---
PROCEDURE: XR HIP W PEL IF DONE LT 2V INDICATIONS: LEFT HIP REVISION/HARDWARE REMOVAL TECHNIQUE: AP pelvis with lateral view(s) of the left hip(s). COMPARISON: [facility], , XR HIP W PEL IF DONE LT 2V, 03/30/2019, 13:17. FINDINGS: Bones: There is interval removal of fixation hardware in left femoral neck and proximal femoral shaft. Healing comminuted fracture involving proximal left femoral shaft is again seen. Alignment of left hip is not significantly changed from previous study. No new fracture or dislocation. Pelvic ring appears intact. No suspicious bony lesions. Soft tissues: The visualized bowel gas pattern is normal. No suspicious soft tissue calcifications. Surgical drain and skin anna are noted in lateral aspect of left hip and left thigh soft tissue. IMPRESSION: Interval removal of fixation hardware in left hip with postsurgical changes and stable left hip alignment. Dictated by: Dragan Maria M.D. on 04/02/2019 at 16:46 Approved by: Dragan Maria M.D. on 04/02/2019 at 16:47
[2019-04-02] MEDS: HYDROCODONE/ACET 5/325 TABLET 2 TAB PO ×2 (00:42→23:32)
[2019-04-02] MEDS: diazePAM 5 MG TABLET PO (00:42)
[2019-04-02] MEDS: LACTATED RINGERS 1,000 ML 125 ML IV ×3 (01:47→19:54)
[2019-04-02] MEDS: HYDROMORPHONE 1 MG INJ IV ×2 (07:18→09:40)
--- NOTE | 2019-04-02 08:13 | PC.NURSE ---
Addendum entered by Mari Quach R.N. 04/02/19 11:39: SURG - ivf saline locked and taken pacu 1140. Original Note: AM NOTE - pt had been given 0.5mg iv dilaudid prior to shift change, dozing, easily awakens and states pain l hip now 1-2 on scale 0/10, ra 97%, npo for surgery approx noon today, hr occass irreg 86, bp 133/53, removed the l scd as it was causing increased spasm to l hip area.
--- NOTE | 2019-04-02 08:34 | PM.PN.1 ---
Subjective Date Patient Seen: 04/02/19 Time Patient Seen: 08:34 Interval history: Hospital day 4 with status post left hip fracture ORIF with recent protrusio hip screws through femoral head. Patient is awaiting revision hip surgery today by Dr. Baer with possible nichelle arthroplasty versus total arthroplasty. Pain controlled with [place] 5-10 mg. Exam Vital Signs (past 8 hours): - 04/02/19 05:18 04/02/19 07:30 Temperature 98.4 F 97.8 F Pulse Rate 83 86 Respiratory Rate 18 16 Blood Pressure 124/59 L 133/53 L Pulse Oximetry 97 97 Fraction of Inspired Oxygen 21 Oxygen Delivery Method Room Air Oxygen Flow Rate 0 Narrative Exam Narrative: Left leg. Incision to proximal hip area is closed well with Steri-Strips covering and no signs of infection. Mild areas of ecchymosis to thigh. No calf pain or swelling. Pulses symmetrical. Good sensation to the lower leg. Objective Labs Result Diagrams: 03/30/19 15:00 03/30/19 15:00 Assessment & Plan Assessment & Plan narrative: Plan: Patient will be NPO this morning. She is scheduled for revision left hip surgery at [address] Baer.
[2019-04-02] MEDS: VANCOMYCIN 1,000 MG/200 ML PIGGYBACK 200 MG IV (11:48)
[2019-04-02] MEDS: LACTATED RINGERS 1,000 ML 42 ML IV (12:14)
[2019-04-02] MEDS: CEFAZOLIN 2 GM/100 ML FROZ.PIGGY IV (13:15)
--- NOTE | 2019-04-02 14:04 | SUR.OPER ---
Lateral on padded OR bed. Gel axillary roll. Arms secured on padded armboard with pillow supporting top arm. Padded hip positioner braces x4 - anterior and posterior chest and pelvis. Additional gel pad used anterior pelvis. Gel pad under bottom leg from knee to foot and secured with tape over sheet.
[2019-04-02] MEDS: BUPIVACAINE 0.5% W/ EPI (PF) VIAL 30 ML INJ (14:20)
[2019-04-02] MEDS: BUPIVACAINE LIPOSOME 266 MG/20 ML VIAL INJ (14:21)
[2019-04-02] MEDS: VANCOMYCIN 1,000 MG VIAL 1000 MG TOP (14:22)
--- NOTE | 2019-04-02 15:52 | PM.PN.1 ---
Subjective Date Patient Seen: 04/02/19 Time Patient Seen: 12:10 Interval history: Avery had a left hip open reduction internal fixation for severely comminuted intertrochanteric hip fracture. She was discharged to a [facility] facility and was mobilizing with physical therapy. She has been seen in the office on 2 occasions and was noted to have some progressive collapse of her comminuted intertrochanteric hip fracture with early cut out of her Synthes nail blade. She also notes some moderate swelling about the left hip but notes that she has significant issues with swelling after injuries including a long-standing bump on her head and also a pretibial soft tissue swelling from an injury several months ago. She specifically denied a history of fever chills. She has not had any significant wound drainage. Exam Vital Signs (past 8 hours): - 04/02/19 11:56 Temperature 99.7 F H Pulse Rate 94 H Respiratory Rate 18 Blood Pressure 151/76 H Pulse Oximetry 97 Fraction of Inspired Oxygen 21 Oxygen Delivery Method Room Air Oxygen Flow Rate 0 Narrative Exam Narrative: She is alert she is oriented she has significant pain with attempted range of motion in her left hip. Her wound shows a healing incision with soft tissue swelling but without significant erythema. Lungs are clear cor regular rate and rhythm abdomen benign left lower extremity shows she is neurovascularly intact distally. Objective Labs Result Diagrams: 03/30/19 15:00 03/30/19 15:00 Labs: X-rays show progressive collapse of her proximal femur fracture with some early cut out of her blade plate. Assessment & Plan Assessment & Plan narrative: Impression is failing left comminuted proximal femur fracture with early collapse and cut out of her internal fixation. Her white blood cell count is elevated but she has not had significant fevers and her wound shows evidence of a probable hematoma but is otherwise benign. The plan is for removal of internal fixation and revision to a total hip arthroplasty and with repair as indicated. Procedure alternatives risks benefits and complications were discussed with the patient. She understands and agrees and consents to surgery.
--- NOTE | 2019-04-02 15:59 | P.PN_ITS ---
Subjective Date Patient Seen: 04/02/19 Time Patient Seen: 12:10 Interval history: Avery had a left hip open reduction internal fixation for severely comminuted intertrochanteric hip fracture. She was discharged to a [facility] facility and was mobilizing with physical therapy. She has been seen in the office on 2 occasions and was noted to have some progressive collapse of her comminuted intertrochanteric hip fracture with early cut out of her Synthes nail blade. She also notes some moderate swelling about the left hip but notes that she has significant issues with swelling after injuries including a long-standing bump on her head and also a pretibial soft tissue swelling from an injury several months ago. She specifically denied a history of fever chills. She has not had any significant wound drainage. Exam Vital Signs (past 8 hours): - 04/02/19 11:56 Temperature 99.7 F H Pulse Rate 94 H Respiratory Rate 18 Blood Pressure 151/76 H Pulse Oximetry 97 Fraction of Inspired Oxygen 21 Oxygen Delivery Method Room Air Oxygen Flow Rate 0 Narrative Exam Narrative: She is alert she is oriented she has significant pain with attempted range of motion in her left hip. Her wound shows a healing incision with soft tissue swelling but without significant erythema. Lungs are clear cor regular rate and rhythm abdomen benign left lower extremity shows she is neurovascularly intact distally. Objective Labs Result Diagrams: 03/30/19 15:00 03/30/19 15:00 Labs: X-rays show progressive collapse of her proximal femur fracture with some early cut out of her blade plate. Assessment & Plan Assessment & Plan narrative: Impression is failing left comminuted proximal femur fracture with early collapse and cut out of her internal fixation. Her white blood cell count is elevated but she has not had significant fevers and her wound shows evidence of a probable hematoma but is otherwise benign. The plan is for removal of internal fixation and revision to a total hip arth roplasty and with repair as indicated. Procedure alternatives risks benefits and complications were discussed with the patient. She understands and agrees and consents to surgery.
[2019-04-02] MEDS: HYDROMORPHONE 2 MG INJ 0.5 MG IV ×3 (16:22→16:52)
--- NOTE | 2019-04-02 16:46 | P.OP_ITS ---
Operative Date/Time/Diagnoses Date of procedure: 04/02/19 Time of procedure: 13:04 Pre-op diagnosis: Failing left comminuted 4 part intertrochanteric hip fracture open reduction internal fixation Post-op diagnosis: same Procedure & Clinicians Procedure: Left hip removal of internal fixation and excisional irrigation and debridement Same procedure as scheduled: No (Interoperative findings suggested a deep infection, unsafe for GIA) Indications: This is a 73-year-old female who fell and has sustained a comminuted left intertrochanteric hip fracture. She has had previous fixation with an intramedullary cephalomedullary nail. Her x-rays showed collapse of her fracture and early cut out. She is brought the operating room for removal of internal fixation and total hip arthroplasty. Surgeon: Linda Baer Spaghetti Machine Operator: Robert Macedo Anesthesia Type: General Operative Notes Findings: A large fluid collection which appeared to be purulence and it was sent for stat Gram stain culture and sensitivity. G stain suggested multiple white blood cells and gram-positive cocci. Closure Type: primary Specimen(s): other (Multiple cultures and PCR) Applied: drain(s) Estimated Blood Loss (mL): 250 Blood products transfused: none Procedure in detail: The patient was brought to the operating room. She underwent this induction of a satisfactory general anesthesia. A time-out was performed and antibiotics were given. She was carefully positioned in the lateral decubitus position and the left leg was prepped and draped in a standard sterile fashion. A posterolateral approach was made towards the hip. There was significant swelling which was felt to represent a hematoma. The patient's previous incision was felt to be too anterior for adequate exposure and a new incision was selected. The more distal incision from her previous internal fixation was used for screw and blade plate removal. Dissection was carried out through skin and subcutaneous tissues. There was a large hematoma in the subcutaneous tissues which tracked down deep to the fascia. The fluid appeared somewhat purulent in addition to a hematoma. A stat Gram stain culture and sensitivity was sent and the results showed multiple white blood cells as well as gram-positive cocci. Clinically it appeared that there was a deep infection. At this point the operative plan was changed and after careful consideration I felt the best plan was to remove her internal fixation as it was not providing significant stability to her fracture and to carefully debride her wound and placed her on antibiotics in order to ultimately attempt to cure her infection. Deep cultures and PCR were sent. The proximal nivia was identified and the locking screw was removed. Fairly extensive bursectomy was performed and subcutaneous tissues as well as bursa was meticulously resected as an excisional debridement. Any tissue that appeared to be grossly infected was carefully removed. Next attention was directed to the distal interlocking screw as well as the blade plate. C-arm was used to help further define the level of the interlocking screw and blade plate. Patient's previous skin incision was used but she did have significant subcutaneous tissues. I incised the fascia and then placed an 18 gauge spinal needle to use as a sound to help further find the distal interlocking screw. This was identified and then removed without difficulty. Next the C-arm was brought in and the level of the blade plate was identified using an 18 gauge needle and dissecting down to the blade plate. The blade plate was removed without difficulty. I meticulously irrigated the wound and then I used the tract of the blade plate to pack some vancomycin powder into the femoral head location. Next the nivia was removed without difficulty. I then meticulously slopes scrubbed the intramedullary canal and used the pulse lavage to meticulously debride the intramedullary canal and then packed some vancomycin powder into the inter medullary canal. The incision in the hip abductors was repaired with interrupted monofilament. The fascia and subcutaneous tissues were closed loosely with interrupted absorbable monofilament. The distal incision was also closed with interrupted absorbable monofilament. Additional vancomycin powder was also placed as well as 2 drains 1 superficial and 1 deep. Skin was closed with skin anna. A harmony dressing was applied. Patient tolerated the procedure well she was transferred to recovery room in satisfactory condition. Complications: none Condition: stable Disposition: Acute Care Plan for aftercare: IV antibiotics [address] a PICC line. Nonweightbearing left lower extremity. Ultimate plan for revision to total hip arthroplasty when there is evidence that the infection has been cleared.
--- NOTE | 2019-04-02 18:00 | DI.RAD.S_ITS ---
PROCEDURE: XR CHEST FOR PICC 1V INDICATIONS: iv abx/PICC LINE PLACEMENT COMPARISON: None. FINDINGS: PICC was placed by the intravenous therapy team from the left side. Fluoroscopic spot film demonstrates tip of PICC in the mid SVC. Scattered bibasilar atelectasis. IMPRESSION: Tip of PICC lies within the mid SVC. Dictated by: Tereso Foote M.D. on 04/02/2019 at 18:25 Approved by: Tereso Foote M.D. on 04/02/2019 at 18:26
--- NOTE | 2019-04-02 18:14 | SUR.PHASEI ---
Late entry: Pt arrived to PACU, slowly awakened, MAEW, followed commands, oriented to time place and person, confused about procedure done, reoriented several times about surgical procedure. Initial monitor showed sinus tachycardia, then ST w/ PACs, at times frequent PAC's. Dr Dixon made aware, saw pt at bedside. Telemetry placed on pt as per order. Pt medicated with Dilaudid, pain started 10 down to 3/10 by d/c to acute care. Pt transported to room 215 via bed on o2 nasal cannula and left with MONA Valero in stable condition.
--- NOTE | 2019-04-02 18:29 | PC.NURSE ---
TELE ORDER Multiple tele orders entered post op. Kept initial order (17:19) and d/c'd the rest.
[2019-04-02] MEDS: DOCUSATE 100 MG CAPSULE PO (19:56)
[2019-04-02] MEDS: ASCORBIC ACID 500 MG TABLET PO (19:57)
[2019-04-02] MEDS: ASPIRIN EC 81 MG TABLET PO (19:58)
--- NOTE | 2019-04-02 20:20 | PC.NURSE ---
Pt arrived from PACU @ 1800 Alert/drowsy Denies discomfort at this time. LR @ 125cc/hr via pump infusing as per orders. Left hip SANAM dsg CDI, two HV intact/patent Resting quietly at this time. Call light w/in reach, bed alrm on for pt safety. Continue w/plan of care.
[2019-04-02 21:26] LABS: Add Manual Diff / Slide Review NO; Basophils Absolute Auto 0 /uL (0-100); Basophils Percent Auto 0.1 % (0-2); Eosinophils Absolute Auto 0 /uL (0-450); Hematocrit 29.4 % (36-46); Hemoglobin 9.7 g/dL (12.0-16.0); Lymphocytes Absolute Auto 300 /uL (1100-4500); Lymphocytes Percent Auto 2.5 % (25-40); Mean Corpuscular Hemoglobin 32.1 PG (26-34); Monocytes Absolute Auto 400 /uL (0-900); Monocytes Percent Auto 3.4 % (3-14); Neutrophils Absolute Auto 11700 /uL (1500-7000); Platelet Count 359 X10^3/uL (150-400); Red Blood Cell Count 3.03 X10^6/uL (4.0-5.2); Red Cell Distribution Width 13.8 % (11.6-14.8); White Blood Cell Count 12.5 X10^3/uL (4.5-11.0)
[2019-04-02] MEDS: VANCOMYCIN 1,250 MG in SODIUM CHLORIDE 0.9% 250 ML IV (22:16)
--- NOTE | 2019-04-02 22:40 | PM.CN ---
History of Present Illness Date Patient Seen: 04/02/19 Time Patient Seen: 22:10 Chief complaint: left hip Reason for consult: Cardiac arrhythmia Requesting provider: Linda Baer Narrative: The patient is a 73-year-old female w/ PMHs of HTN, surgical hypothyroidism (h/o thyroid cancer, s/p total thyroidectomy), hyperlipidemia (h/o statin intolerance, currently not on any lipid lowering agent), obesity (BMI 31), vitamin D insufficiency, and heavy EtOH consumption (no h/o EtOH withdrawal, delirium, or seizures). Hospitalist medicine consulted to evaluate patient for an arrhythmia. Patient presented to the ED with left hip pain. Patient is known to have sustained a left femur fracture after a GLF on 03/07/2019. On that day patient was taken to the OR and underwent an ORIF of the fracture. Patient's postoperative course was complicated by hypocalcemia, anemia, and dizziness. At that time further w/u revealed vitamin-D deficiency and patient was started on oral vitamin-D repletion. She was transfused with 1 unit of PRBCs. Prior to her fall she was taking 650 mg of ASA daily. Notes being recently told of dose being too high. Reports being off ASA since most recent hospital discharge. Dizziness was suspected to be in the setting of dehydration, her home medication regimen was adjusted and HCTZ discontinued. Patient is somewhat an unreliable historian. She has been experiencing intermittent periods of dizziness and sensation of thumping since young adult cardozo. She has not able to clearly note of to occur together. She does note that these tend to occur when she is under stress or when using stimulants. Patient specifically provided examples of caffeine consumption and previously with excessive tobacco use. Patient admits to a 42 year history of tobacco dependence (0.5-1 ppd), quit at age 56. Patient is considered to have excessive alcohol consumption, as defined by [employer] on alcohol abuse and alcoholism. Currently admits to drinking 2 glasses of wine daily and 1-2 shots of Vodka prior to bedtime. Family history significant for alcoholism (father). Patient denies underlying cardiac etiology. She is not known to have prior history of a cardiac arrhythmia. She does have longstanding history of hypertension, which she notes to be well controlled with lisinopril-hctz and amlodipine. Recently discharged home on lisinopril-HCTZ combination. It is worth noting that HCTZ portion of the combination drug was held during patient's hospitalization 03/09-03/11. Patient denies prior electrolyte abnormalities. She has a history of partaking in intermittent fasting. No prior history of cardiac events, known cardiac disease, cerebrovascular events, or thrombosis. Denies having an echocardiogram or a cardiac catheterization in the past. [facility] Medical History (Updated 04/03/19 @ 03:39 by ANDRES Hopper) History of cervical cancer (Acute) Hypertension (Chronic) Hypothyroid (Chronic) Thyroid cancer (Chronic) Surgical History (Updated 04/03/19 @ 03:41 by ANDRES Hopper) History of total thyroidectomy (Chronic) History of myomectomy (Chronic) History of thyroidectomy (Inactive) Family History (Updated 04/03/19 @ 03:39 by ANDRES Hopper) Father Alcoholism Smoker Heart disease Stroke Mother No problems noted. Sister No problems noted. Social History (Updated 04/03/19 @ 03:43 by ANDRES Hopper) household members: none lives independently: Yes Smoking Status: Former smoker Tobacco: How many years used: 42 second hand exposure: No alcohol intake: current substance use type: marijuana additional social history: Reports smoking cigarettes from age 14 to age 56, 0.5 to 1 pack per day. Reports to drinking 2 glasses of wine daily and 1-2 shots of Vodka prior to bedtime. Notes this to be a lifelong practice. Social History (Updated 04/03/19 @ 03:43 by ANDRES Hopper) household members: none lives independently: Yes Smoking Status: Former smoker Tobacco: How many years used: 42 second hand exposure: No alcohol intake: current substance use type: marijuana additional social history: Reports smoking cigarettes from age 14 to age 56, 0.5 to 1 pack per day. Reports to drinking 2 glasses of wine daily and 1-2 shots of Vodka prior to bedtime. Notes this to be a lifelong practice. Meds Home Medications Medication Instructions Recorded Confirmed Type aspirin 325 mg tablet 650 mg PO BEDTIME PRN tab 11/05/18 03/31/19 History amlodipine 5 mg tablet 5 mg PO DAILY #90 tab 12/14/18 03/31/19 Rx levothyroxine 75 mcg tablet 75 mcg PO DAILY #90 tab 02/13/19 03/31/19 Rx lisinopril-hydrochlorothiazide 1 tab PO DAILY 03/07/19 03/31/19 History olive leaf extract 1,000 mg PO DAILY 03/07/19 03/31/19 History ascorbic acid (vitamin C) [Vitamin 500 mg PO BID #30 tab 03/11/19 03/31/19 Rx C] calcium carbonate 1,000 mg PO Q4HR PRN #30 tab 03/11/19 03/31/19 Rx cholecalciferol (vitamin D3) 2,000 unit PO DAILY #30 cap 03/11/19 03/31/19 Rx [Vitamin D3] docusate sodium [DOK] 100 mg PO BID #30 cap 03/11/19 03/31/19 Rx ferrous sulfate [iron] 325 mg PO BID #60 tab 03/11/19 03/31/19 Rx hydrocodone-acetaminophen 1 tab PO Q4HR PRN #15 tab 03/11/19 03/31/19 Rx Allergies Allergy/AdvReac Type Severity Reaction Status Date / Time [id number] Reductase AdvReac Intermediate myalgias, Verified 04/02/19 11:49 Inhibitor tinnitus [[id number] REDUCTASE INHIBITOR] Review of Systems Review of Systems All systems reviewed & are unremarkable except as noted in HPI and below Exam Vital Signs (past 8 hours): - 04/02/19 16:05 04/02/19 16:10 04/02/19 16:15 Temperature 99.7 F H Pulse Rate 107 H 103 H 99 H Respiratory Rate 18 15 16 Blood Pressure 139/67 139/61 133/64 Pulse Oximetry 90 L 95 99 04/02/19 16:19 04/02/19 16:22 04/02/19 16:26 Temperature 99.7 F H 98.2 F Pulse Rate 103 H 106 H Respiratory Rate 17 20 Blood Pressure 145/82 H 155/66 H Pulse Oximetry 100 100 04/02/19 16:30 04/02/19 16:35 04/02/19 16:45 Temperature 97.3 F L Pulse Rate 100 H 103 H 104 H Respiratory Rate 14 15 19 Blood Pressure 153/68 H 153/71 H 148/76 H Pulse Oximetry 95 94 98 04/02/19 16:50 04/02/19 17:05 04/02/19 17:10 Temperature Pulse Rate 105 H 105 H 105 H Respiratory Rate 14 16 19 Blood Pressure 156/67 H 146/65 H 153/64 H Pulse Oximetry 96 97 97 04/02/19 17:15 04/02/19 18:05 04/02/19 18:35 Temperature 98.8 F 97.3 F L Pulse Rate 104 H 97 H 98 H Respiratory Rate 16 16 Blood Pressure 138/65 129/71 135/60 Pulse Oximetry 96 98 98 04/02/19 19:45 04/02/19 20:47 Temperature 97.4 F L 97.8 F Pulse Rate 90 98 H Respiratory Rate 18 18 Blood Pressure 150/68 H 142/72 H Pulse Oximetry 99 Fraction of Inspired Oxygen 21 Oxygen Delivery Method Nasal Cannula Oxygen Flow Rate 2 Narrative Exam Narrative: Constitutional: NAD Neurologic: AOx3, no focal neurological deficits Head: NC, AT Eyes: pupils equal and reactive, EOMI Ears: external ears normal, no otorrhea Nose: external nose normal, no epistaxis Throat: MMM, oropharynx w/o exudate Neck: no masses, lymphadenopathy, or JVD Chest / Respiratory: equal chest rise, unlabored respiratory effort, no dyspnea or tachypnea, CTA / diminished bases Heart / CV: S1S2 Abdomen / GI: round, NT, ND, + BS, no organomegaly : no suprapubic tenderness, no CVA Peripheral / Vascular: warm to touch, DP and PT pulses palpable, LLE edema trace Musc: full ROM of upper and lower extremities, adequate muscle tone and bulk Skin: no ecchymosis or suspicious lesions, dressing at the left hip Objective Labs Result Diagrams: 04/02/19 21:20 04/02/19 21:20 Labs: Laboratory Results - last 24 hr 04/02/19 21:20 WBC 12.5 H RBC 3.03 L Hgb 9.7 L Hct 29.4 L MCV 97.0 MCH 32.1 MCHC 33.0 RDW 13.8 Plt Count 359 Neut % (Auto) 94.0 H Lymph % (Auto) 2.5 L [place] % (Auto) 3.4 Eos % (Auto) 0.0 L Baso % (Auto) 0.1 Neut # (Auto) 20647 H Lymph # (Auto) 300 L [place] # (Auto) 400 Eos # (Auto) 0 Baso # (Auto) 0 Assessment & Plan Assessment & Plan narrative: Hospital medicine consulted to evaluate for palpitations and potential cardiac arrhythmia Palpitations, acute on chronic, present on admission, active Concern for cardiac arrhythmia intraoperatively and/or in the immediate postop period. Found to have infection at site of surgery and suspected infection of orthopedic hardware. Tele monitoring w/ PACs while in the PACU. No EKG available from the event. Prior EKG on 03/07/2019 is unremarkable. At that time patient noted to be in sinus rhythm. - EKG reviewed: SR (v-rate 88). Nonischemic. No pathological Q-waves. QT/QTc 356/432. - BMP, Mg, TSH reviewed: Na 132, Mg 1.5, Glu 163 - Echo in am - Risk stratify: A1C, FLP - Monitor for electrolyte and metabolic abnormalities and accordingly - Treat underlying infection Hypomagnesemia, acute, present on admission, active - Replete magnesium level, 2 gm MgSO4 Hyponatremia, subacute, present on admission, active - Na of 132. Hyponatremia since at least 03/07/2019. Noted to have a normal sodium level in October of 2018. - Potentialy multifactorial, suspected to have multitude of contributing factors... 2/2 hypovolemia 2/2 HCTZ use VS hypertriglyceridemia (prior h/o dyslipidemia / intolerance to statin therapy) VS hypothyroidism VS excessive EtOH consumption - Check serum osmolality - D/C HCTZ, indefinitely. This is not an ideal medication for this patient, given history of lifelong and potentially excessive alcohol use and a habit of intermittent fasting. Excessive consumption of alcohol, chronic condition, present on admission, active - Start vitamin / thiamine - Monitor for s/s of EtOH withdraw Failed left ORIF, acute, present on admission, active Patient was found to have large hematoma in the subcu tissues which tracked down deep to the facies. In addition to the hematoma purulence fluid noted. A Gram stain culture and sensitivity obtained, which revealed multiple WBCs as well as gram-positive cocci. Clinical appearance of deep infection was noted. Given above findings, internal fixation was removed and the wound was debrided. - Followed by orthopedic surgery - A 4 week course of empiric therapy with vancomycin - Non weight-bearing status (LLE) - Plan for revision to total hip arthroplasty after successful treatment and resolution of the infection Normocytic normochromic anemia, acute, present on admission, active - Suspected to be in the setting of acute blood loss, associated with recent surgery - Patient has been taking 650 mg of ASA daily, stopped 1 week ago by report. Also known to have longstanding history of excessive alcohol consumption. - Check iron profile Vitamin-D insufficiency, subacute, present on admission, active - 25 (OH) D 23.3 ng/ml (03/09/2019), continue vitamin-D3 supplementation per [facility] regimen Surgical hypothyroidism, chronic condition, present on admission, active - TSH level mildly elevated on 03/13/19, 5.47 - Repeat TSH reviewed: 2.53 - Resume levothyroxine, per [facility] regimen
--- NOTE | 2019-04-02 22:52 | P.CONS_ITS ---
History of Present Illness Date Patient Seen: 04/02/19 Time Patient Seen: 22:10 Chief complaint: left hip Reason for consult: Cardiac arrhythmia Requesting provider: Linda Baer Narrative: The patient is a 73-year-old female w/ PMHs of HTN, surgical hypothyroidism (h/o thyroid cancer, s/p total thyroidectomy), hyperlipidemia (h/o statin intolerance, currently not on any lipid lowering agent), obesity (BMI 31), vitamin D insufficiency, and heavy EtOH consumption (no h/o EtOH withdrawal, delirium, or seizures). Hospitalist medicine consulted to evaluate patient for an arrhythmia. Patient presented to the ED with left hip pain. Patient is known to have sustained a left femur fracture after a GLF on 03/07/2019. On that day patient was taken to the OR and underwent an ORIF of the fracture. Patient's postoperative course was complicated by hypocalcemia, anemia, and dizziness. At that time further w/u revealed vitamin-D deficiency and patient was started on oral vitamin-D repletion. She was transfused with 1 unit of PRBCs. Prior to her fall she was taking 650 mg of ASA daily. Notes being recently told of dose be ing too high. Reports being off ASA since most recent hospital discharge. Dizziness was suspected to be in the setting of dehydration, her home medication regimen was adjusted and HCTZ discontinued. Patient is somewhat an unreliable historian. She has been experiencing intermittent periods of dizziness and sensation of thumping since young adult cardozo. She has not able to clearly note of to occur together. She does note that these tend to occur when she is under stress or when using stimulants. Patient specifically provided examples of caffeine consumption and previously with excessive tobacco use. Patient admits to a 42 year history of tobacco dependence (0.5-1 ppd), quit at age 56. Patient is considered to have excessive alcohol consumption, as defined by National [place] on alcohol abuse and alcoholism. Currently admits to drinking 2 glasses of wine daily and 1-2 shots of Vodka prior to bedtime. Family history significant for alcoholism (father). Patient denies underlying cardiac etiology. She is not known to have prior history of a cardiac arrhythmia. She does have longstanding history of hypertension, which she notes to be well controlled with lisinopril-hctz and amlodipine. Recently discharged home on lisinopril-HCTZ combination. It is worth noting that HCTZ portion of the combination drug was held during patient's hospitalization 03/09-03/11. Patient denies prior electrolyte abnormalities. She has a history of partaking in intermittent fasting. No prior history of cardiac events, known cardiac disease, cerebrovascular events, or thrombosis. Denies having an echocardiogram or a cardiac catheterization in the past. [facility] Medical History (Updated 04/03/19 @ 03:39 by ANDRES Hopper) History of cervical cancer (Acute) Hypertension (Chronic) Hypothyroid (Chronic) Thyroid cancer (Chronic) Surgical History (Updated 04/03/19 @ 03:41 by ANDRES Hopper) History of total thyroidectomy (Chronic) History of myomectomy (Chronic) History of thyroidectomy (Inactive) Family History (Updated 04/03/19 @ 03:39 by ANDRES Hopper) Father Alcoholism Smoker Heart disease Stroke Mother No problems noted. Sister No problems noted. Social History (Updated 04/03/19 @ 03:43 by ANDRES Hopper) household members: none lives independently: Yes Smoking Status: Former smoker Tobacco: How many years used: 42 second hand exposure: No alcohol intake: current substance use type: marijuana additional social history: Reports smoking cigarettes from age 14 to age 56, 0.5 to 1 pack per day. Reports to drinking 2 glasses of wine daily and 1-2 shots of Vodka prior to bedtime. Notes this to be a lifelong practice. Social History (Updated 04/03/19 @ 03:43 by ANDRES Hopper) household members: none lives independently: Yes Smoking Status: Former smoker Tobacco: How many years used: 42 second hand exposure: No alcohol intake: current substance use type: marijuana additional social history: Reports smoking cigarettes from age 14 to age 56, 0.5 to 1 pack per day. Reports to drinking 2 glasses of wine daily and 1-2 shots of Vodka prior to bedtime. Notes this to be a lifelong practice. Meds Home Medications Medication Instructions Recorded Confirmed Type aspirin 325 mg tablet 650 mg PO BEDTIME PRN tab 11/05/18 03/31/19 History amlodipine 5 mg tablet 5 mg PO DAILY #90 tab 12/14/18 03/31/19 Rx levothyroxine 75 mcg tablet 75 mcg PO DAILY #90 tab 02/13/19 03/31/19 Rx lisinopril-hydrochlorothiazide 1 tab PO DAILY 03/07/19 03/31/19 History olive leaf extract 1,000 mg PO DAILY 03/07/19 03/31/19 History ascorbic acid (vitamin C) [Vitamin 500 mg PO BID #30 tab 03/11/19 03/31/19 Rx C] calcium carbonate 1,000 mg PO Q4HR PRN #30 tab 03/11/19 03/31/19 Rx cholecalciferol (vitamin D3) 2,000 unit PO DAILY #30 cap 03/11/19 03/31/19 Rx [Vitamin D3] docusate sodium [DOK] 100 mg PO BID #30 cap 03/11/19 03/31/19 Rx ferrous sulfate [iron] 325 mg PO BID #60 tab 03/11/19 03/31/19 Rx hydrocodone-acetaminophen 1 tab PO Q4HR PRN #15 tab 03/11/19 03/31/19 Rx Allergies Allergy/AdvReac Type Severity Reaction Status Date / Time [id number] Reductase AdvReac Intermediate myalgias, Verified 04/02/19 11:49 Inhibitor tinnitus [[id number] REDUCTASE INHIBITOR] Review of Systems Review of Systems All systems reviewed & are unremarkable except as noted in HPI and below Exam Vital Signs (past 8 hours): - 04/02/19 16:05 04/02/19 16:10 04/02/19 16:15 Temperature 99.7 F H Pulse Rate 107 H 103 H 99 H Respiratory Rate 18 15 16 Blood Pressure 139/67 139/61 133/64 Pulse Oximetry 90 L 95 99 04/02/19 16:19 04/02/19 16:22 04/02/19 16:26 Temperature 99.7 F H 98.2 F Pulse Rate 103 H 106 H Respiratory Rate 17 20 Blood Pressure 145/82 H 155/66 H Pulse Oximetry 100 100 04/02/19 16:30 04/02/19 16:35 04/02/19 16:45 Temperature 97.3 F L Pulse Rate 100 H 103 H 104 H Respiratory Rate 14 15 19 Blood Pressure 153/68 H 153/71 H 148/76 H Pulse Oximetry 95 94 98 04/02/19 16:50 04/02/19 17:05 04/02/19 17:10 Temperature Pulse Rate 105 H 105 H 105 H Respiratory Rate 14 16 19 Blood Pressure 156/67 H 146/65 H 153/64 H Pulse Oximetry 96 97 97 04/02/19 17:15 04/02/19 18:05 04/02/19 18:35 Temperature 98.8 F 97.3 F L Pulse Rate 104 H 97 H 98 H Respiratory Rate 16 16 Blood Pressure 138/65 129/71 135/60 Pulse Oximetry 96 98 98 04/02/19 19:45 04/02/19 20:47 Temperature 97.4 F L 97.8 F Pulse Rate 90 98 H Respiratory Rate 18 18 Blood Pressure 150/68 H 142/72 H Pulse Oximetry 99 Fraction of Inspired Oxygen 21 Oxygen Delivery Method Nasal Cannula Oxygen Flow Rate 2 Narrative Exam Narrative: Constitutional: NAD Neurologic: AOx3, no focal neurological deficits Head: NC, AT Eyes: pupils equal and reactive, EOMI Ears: external ears normal, no otorrhea Nose: external nose normal, no epistaxis Throat: MMM, oropharynx w/o exudate Neck: no masses, lymphadenopathy, or JVD Chest / Respiratory: equal chest rise, unlabored respiratory effort, no dyspnea or tachypnea, CTA / diminished bases Heart / CV: S1S2 Abdomen / GI: round, NT, ND, + BS, no organomegaly : no suprapubic tenderness, no CVA Peripheral / Vascular: warm to touch, DP and PT pulses palpable, LLE edema trace Musc: full ROM of upper and lower extremities, adequate muscle tone and bulk Skin: no ecchymosis or suspicious lesions, dressing at the left hip Objective Labs Result Diagrams: 04/02/19 21:20 04/02/19 21:20 Labs: Laboratory Results - last 24 hr 04/02/19 21:20 WBC 12.5 H RBC 3.03 L Hgb 9.7 L Hct 29.4 L MCV 97.0 MCH 32.1 MCHC 33.0 RDW 13.8 Plt Count 359 Neut % (Auto) 94.0 H Lymph % (Auto) 2.5 L Maury % (Auto) 3.4 Eos % (Auto) 0.0 L Baso % (Auto) 0.1 Neut # (Auto) 63497 H Lymph # (Auto) 300 L Maury # (Auto) 400 Eos # (Auto) 0 Baso # (Auto) 0 Assessment & Plan Assessment & Plan narrative: Hospital medicine consulted to evaluate for palpitations and potential cardiac arrhythmia Palpitations, acute on chronic, present on admission, active Concern for cardiac arrhythmia intraoperatively and/or in the immediate postop period. Found to have infection at site of surgery and suspected infection of orthopedic hardware. Tele monitoring w/ PACs while in the PACU. No EKG available from the event. Prior EKG on 03/07/2019 is unremarkable. At that time patient noted to be in sinus rhythm. - EKG reviewed: SR (v-rate 88). Nonischemic. No pathological Q-waves. QT/QTc 356/432. - BMP, Mg, TSH reviewed: Na 132, Mg 1.5, Glu 163 - Echo in am - Risk stratify: A1C, FLP - Monitor for electrolyte and metabolic abnormalities and accordingly - Treat underlying infection Hypomagnesemia, acute, present on admission, active - Replete magnesium level, 2 gm MgSO4 Hyponatremia, subacute, present on admission, active - Na of 132. Hyponatremia since at least 03/07/2019. Noted to have a normal sodium level in October of 2018. - Potentialy multifactorial, suspected to have multitude of contributing facto rs... 2/2 hypovolemia 2/2 HCTZ use VS hypertriglyceridemia (prior h/o dyslipidemia / intolerance to statin therapy) VS hypothyroidism VS excessive EtOH consumption - Check serum osmolality - D/C HCTZ, indefinitely. This is not an ideal medication for this patient, given history of lifelong and potentially excessive alcohol use and a habit of intermittent fasting. Excessive consumption of alcohol, chronic condition, present on admission, active - Start vitamin / thiamine - Monitor for s/s of EtOH withdraw Failed left ORIF, acute, present on admission, active Patient was found to have large hematoma in the subcu tissues which tracked down deep to the facies. In addition to the hematoma purulence fluid noted. A Gram stain culture and sensitivity obtained, which revealed multiple WBCs as well as gram-positive cocci. Clinical appearance of deep infection was noted. Given above findings, internal fixation was removed and the wound was debrided. - Followed by orthopedic surgery - A 4 week course of empiric therapy with vancomycin - Non weight-bearing status (LLE) - Plan for revision to total hip arthroplasty after successful treatment and resolution of the infection Normocytic normochromic anemia, acute, present on admission, active - Suspected to be in the setting of acute blood loss, associated with recent surgery - Patient has been taking 650 mg of ASA daily, stopped 1 week ago by report. Also known to have longstanding history of excessive alcohol consumption. - Check iron profile Vitamin-D insufficiency, subacute, present on admission, active - 25 (OH) D 23.3 ng/ml (03/09/2019), continue vitamin-D3 supplementation per MACHINE SET UP TECHNICIAN regimen Surgical hypothyroidism, chronic condition, present on admission, active - TSH level mildly elevated on 03/13/19, 5.47 - Repeat TSH reviewed: 2.53 - Resume levothyroxine, per MACHINE SET UP TECHNICIAN regimen
--- NOTE | 2019-04-02 22:55 | DI.ECHO.S_ITS ---
[facility]---------+ [facility] +---------+ : : [address] : : : : [id number] : : : : Phone: [phone]+ Echocardiogram Report + + :Name: EARL ROGEL Study Date: 04/03/2019 Height: 65 in : :[facility] Exam Location: [facility] Weight: 187 lb : : Gender: Female BSA: 1.9 m2 : :: 1945 Age: 73 yrs BP: 118/54 mmHg: :Reason For Study: ARRHYTHMIA : : Performed By: Spencer Villareal : :Referring: GLORIA REDDING : + + Interpretation Summary The left ventricle is normal in size, wall thickness, and systolic function without any focal wall motion abnormalities with the ejection fraction visually estimated to be 60-65%. Diastolic function could not be accurately assessed due to contradictory data. The right ventricle is normal in size and function. Pulmonary artery pressures cannot be estimated because of the lack of a measurable TR jet velocity but the IVC suggests a CVP of around 3 mmHg. Both atria are normal in size. There is no significant valvular heart disease. The patient was in normal sinus rhythm during the exam. Procedure: A two-dimensional transthoracic echocardiogram with color flow and Doppler was performed. The study quality was technically difficult. There is no prior echocardiogram noted for this patient. The patient was fully supine during the exam. The patient was in normal sinus rhythm during the exam. Left Ventricle: The left ventricle is normal in size, wall thickness, and systolic function without any focal wall motion abnormalities. The ejection fraction is estimated to be 60-65%. Diastolic function could not be accurately assessed due to contradictory data. Right Ventricle: The right ventricle is normal in size and function. Atria: Both atria are normal in size. The interatrial septum is intact with no evidence for an atrial septal defect. Mitral Valve: There is moderate mitral annular calcification. There is no mitral regurgitation noted. Aortic Valve: The aortic valve is slightly calcified. The aortic valve opens well. No aortic regurgitation is present. Tricuspid Valve: The tricuspid valve is normal in structure and function. No tricuspid regurgitation. Pulmonary artery pressures cannot be estimated because of the lack of a measurable TR jet velocity but the IVC suggests a CVP of around 3 mmHg. Pulmonic Valve: The pulmonic valve is not well visualized. There is trace pulmonic regurgitation. There is no significant valvular heart disease. Great Vessels: The aortic root is normal size. The dimensions of the ascending aorta are normal. The pulmonary artery is normal size. The IVC is of normal diameter and collapses greater than 50% with a sniff. This suggests a low right atrial pressure of 3 mm Hg. Pericardium/ Pleura There is no pericardial effusion. There is no pleural effusion. MMode/2D Measurements & Calculations LVIDd: 4.7 cm LVOT diam: 2.0 cm LVIDs: 4.0 cm Ao root diam: 2.8 cm FS: 15.4 % Aortic Jxn: 2.0 cm EPSS: 0.26 cm asc Aorta Diam: 3.2 cm IVSd: 0.89 cm Ao Arch Diam (Prox Trans): 2.2 cm LVPWd: 0.85 cm LV thao. diameter/BSA (cm/m^2): 2.4 LV sys. diameter/BSA (cm/m^2): 2.1 LA dimension: 4.0 cm RA long axis: 4.6 cm LA A2 area: 18.9 cm2 RA area: 14.1 cm2 LA A4 area: 19.7 cm2 RA vol: 37.3 ml LA length (vol): 5.3 cm RA : 19.4 ml/m2 LA vol: 59.5 ml IVC diam: 1.6 cm LA vol index: 30.9 ml/m2 Doppler Measurements & Calculations Ao V2 max: 156.9 cm/sec LVOT Max Volodymyr: 120.1 cm/sec Ao V2 mean: 100.7 cm/sec LV V1 max P.8 mmHg Ao max P.8 mmHg LV V1 VTI: 24.3 cm Ao mean P.6 mmHg VINOD(I,D): 2.7 cm2 Ao V2 VTI: 27.9 cm VINOD(V,D): 2.4 cm2 sev ratio: 0.87 VINOD indexed to BSA (cm^2/m^2): 1.4 MV E max volodymyr: 114.0 cm/sec PA V2 max: 97.4 cm/sec MV A max volodymyr: 119.3 cm/sec PA V2 mean: 67.6 cm/sec MV E/A: 0.96 PA mean P.0 mmHg Med Peak E' Volodymyr: 7.3 cm/sec PA pr(Accel): 41.6 mmHg E/E' med: 15.6 PA Accel Time: 0.08 sec Lat Peak E' Volodymyr: 7.6 cm/sec E/E' lat: 14.9 E/e' average: 15.2 MV dec time: 0.24 sec SV(LVOT): 75.4 ml Reading Physician:LIUDMILA
[2019-04-02 23:08] LABS: Blood Urea Nitrogen 10 mg/dL (7-17); Calcium 8.5 mg/dL (8.4-10.2); Carbon Dioxide 26 mmol/L (22-32); Chloride 99 mmol/L (98-107); Estimated Glomerular Filt Rate > 60.0 mL/min (>60); Glucose 163 mg/dL (80-110); HEMOLYSIS < 15 (0-50); Magnesium 1.5 mg/dL (1.6-2.3); Potassium 4.2 mmol/L (3.4-5.1); Sodium 132 mmol/L (137-145)
--- NOTE | 2019-04-02 23:35 | PC.NURSE ---
Addendum entered by Malinda Thomas R.N. 04/03/19 06:59: States repositioning went much better this morning and pain is currently only an ache at 1/10. Addendum entered by Malinda Thomas R.N. 04/03/19 05:45: Has slept well. Refused pain med at 0330 when repositioned onto back and initially declined this morning as states pain at rest is 2/10 but when talked about repositioning requested 2 Vicodin and then wants staff to wait 1 hour before repositioning. Addendum entered by Malinda Thomas R.N. 04/03/19 01:20: [id number] Repositioned patient onto left side with pillow between legs and patient states pain with movement was 7/10 but overall feels Vicodin has reduced pain to 4/10 when at rest. Is alert and oriented but states grumpy because staff is always interrupting for cares; apologizes for behavior. Breath sounds are CTA with RA sat of 95%. HRR and was SR on telemetry reading. Denies nausea. BT present and states she has been passing flatus. Indwelling catheter is patent with clear rajani urine in bag. Hemovac x2 are intact and compressed. SANAM dressings intact with small spot shadow drainage on most distal dressing. Wearing bilateral SCD's. Informed of need for contact isolation until bacteria from wound culture has been identified; verbalizes understanding. Since had recent fall on 03/08/19 fall risk score is high and bed alarm is activated. Original Note: Patient reports 5/10 pain with movement and not wanting to reposition. Medicated with Vicodin (her choice of pain med) and will plan to reposition in 1 hour after pain meds taken effect.
[2019-04-02 23:38] LABS: TSH w/ Reflex to FT4 2.53 uIU/mL (0.47-4.68)
[2019-04-03] MEDS: LACTATED RINGERS 1,000 ML 125 ML IV (03:17)
[2019-04-03 03:34] VITALS: BP 123/54; PULSE 81; RESP 17; TEMP 36.4; O2SAT 93
[2019-04-03] MEDS: MAGNESIUM SULFATE 2 GM/50 ML PIGGYBACK IV (04:23)
[2019-04-03] MEDS: LEVOTHYROXINE 75 MCG TABLET PO (05:38)
[2019-04-03] MEDS: HYDROCODONE/ACET 5/325 TABLET 2 TAB PO ×4 (05:38→21:10)
[2019-04-03 06:03] LABS: Hemoglobin 8.2 g/dL (12.0-16.0)
[2019-04-03 06:07] LABS: HEMOLYSIS < 15 (0-50)
[2019-04-03 06:08] LABS: Cholesterol 130 mg/dL (140-199); HDL Cholesterol 21 mg/dL (40-60); LDL Cholesterol Calculated 92 mg/dL (<100); Triglycerides 84 mg/dL (35-150); VLDL Cholesterol Calculated 17 mg/dL (2-30)
[2019-04-03 06:18] LABS: Total Iron Binding Capacity 139 ug/dL (265-497)
[2019-04-03 06:19] LABS: Hematocrit 24.6 % (36-46)
[2019-04-03 06:28] LABS: Iron < 10 ug/dL (37-170); Percent Iron Saturation 7 % (15-50); Transferrin < 80 mg/dL (206-381)
[2019-04-03 06:33] LABS: Hemoglobin A1C% w Est Avg Glu 5.1 % (4.0-6.0)
[2019-04-03 07:37] VITALS: BP 118/54; PULSE 76; RESP 18; TEMP 36.8; O2SAT 93
--- NOTE | 2019-04-03 08:07 | PM.PN.1 ---
Subjective Date Patient Seen: 04/03/19 Interval history: Avery Singh is a 73-year-old female with a past medical history significant for hypertension, hyperlipidemia not on statin due to intolerance, thyroid cancer s/p total thyroidectomy with secondary hypothyroidism, obesity (BMI 31), vitamin D insufficiency, and heavy alcohol consumption (no history of alcohol withdrawal, delirium, or seizures). Hospitalist medicine consulted to evaluate patient for an arrhythmia. Interval history: Telemetry overnight demonstrated sinus rhythm, HR 80s, without ectopy. The patient is resting in bed comfortably. The patient denies any further palpitations and reports she gets these once a year usually when she is ?stressed.? She denies headache, sore throat, cough, shortness of breath, chest pain, abdominal pain, nausea, vomiting, fever, chills, dysuria, diarrhea or constipation. She is voiding via Lopez catheter without difficulty. She has not yet had a bowel movement but believes she will soon. Continue bowel regimen. She is [id number] on left side. Exam Vital Signs (past 8 hours): - 04/03/19 03:34 04/03/19 07:37 Temperature 97.5 F L 98.3 F Pulse Rate 81 76 Respiratory Rate 17 18 Blood Pressure 123/54 L 118/54 L Pulse Oximetry 93 93 Fraction of Inspired Oxygen 21 Oxygen Delivery Method Room Air Oxygen Flow Rate 0 Narrative Exam Narrative: General: Elderly female sitting in bed and in no acute distress, well-developed, well-nourished, appropriately interactive. HEENT: Normocephalic, atraumatic. External ears without defect. Pupils equal, round, and reactive to light. Anicteric sclerae, moist conjunctivae, and no lid lag. Oropharynx free of erythema and cobble stoning with moist mucosa. Neck: Supple with full range of motion. No jugular venous distension. No bruits. No lymphadenopathy or thyromegaly. Cardiovascular: Regular rate and rhythm without murmurs, rubs, or gallops appreciated. Pulmonary: Clear to auscultation bilaterally without crackles, wheezes, or rhonchi. Normal respiratory effort with no use of accessory muscles. Abdomen: Soft, bowel sounds present, nontender, nondistended. No hepatosplenomegaly or masses appreciated. Extremities: No clubbing, cyanosis, or edema. Left hip with dressing in place C/D/I without surrounding erythema. Skin: Normal temperature, turgor, and texture; no rash, ulcers, or subcutaneous nodules appreciated. Neurological: Cranial nerves grossly intact. Psychiatric: Normal mood and affect. Alert and oriented to person, place, and time. Objective Labs Result Diagrams: 04/04/19 04:06 04/04/19 04:06 Labs: Laboratory Results - last 24 hr 04/02/19 04/02/19 04/02/19 21:20 21:20 21:20 WBC 12.5 H RBC 3.03 L Hgb 9.7 L Hct 29.4 L MCV 97.0 MCH 32.1 MCHC 33.0 RDW 13.8 Plt Count 359 Neut % (Auto) 94.0 H Lymph % (Auto) 2.[address] [place] % (Auto) 3.4 Eos % (Auto) 0.0 L Baso % (Auto) 0.1 Neut # (Auto) 59276 H Lymph # (Auto) [address] [place] # (Auto) 400 Eos # (Auto) 0 Baso # (Auto) 0 Sodium 132 L Potassium 4.2 Chloride 99 Carbon Dioxide 26 BUN 10 Creatinine 0.50 L Estimated GFR > 60.0 BUN/Creatinine Ratio 20.0 Glucose 163 H Hemoglobin A1c Calcium 8.5 Magnesium 1.5 L Iron TIBC % Saturation Transferrin Triglycerides Cholesterol LDL Cholesterol, Calc VLDL Cholesterol HDL Cholesterol TSH 2.53 04/03/19 04/03/19 04/03/19 05:28 05:28 05:28 WBC RBC Hgb 8.2 L Hct 24.6 L MCV MCH MCHC RDW Plt Count Neut % (Auto) Lymph % (Auto) [place] % (Auto) Eos % (Auto) Baso % (Auto) Neut # (Auto) Lymph # (Auto) [place] # (Auto) Eos # (Auto) Baso # (Auto) Sodium Potassium Chloride Carbon Dioxide BUN Creatinine Estimated GFR BUN/Creatinine Ratio Glucose Hemoglobin A1c Calcium Magnesium Iron < 10 L TIBC 139 L % Saturation 7 L Transferrin < 80 L Triglycerides 84 Cholesterol 130 L LDL Cholesterol, Calc 92 VLDL Cholesterol 17 HDL Cholesterol 21 L TSH 04/03/19 05:28 WBC RBC Hgb Hct MCV MCH MCHC RDW Plt Count Neut % (Auto) Lymph % (Auto) [place] % (Auto) Eos % (Auto) Baso % (Auto) Neut # (Auto) Lymph # (Auto) [place] # (Auto) Eos # (Auto) Baso # (Auto) Sodium Potassium Chloride Carbon Dioxide BUN Creatinine Estimated GFR BUN/Creatinine Ratio Glucose Hemoglobin A1c 5.1 Calcium Magnesium Iron TIBC % Saturation Transferrin Triglycerides Cholesterol LDL Cholesterol, Calc VLDL Cholesterol HDL Cholesterol TSH Assessment & Plan Assessment & Plan narrative: Avery Singh is a 73-year-old female with a past medical history significant for hypertension, hyperlipidemia not on statin due to intolerance, thyroid cancer s/p total thyroidectomy with secondary hypothyroidism, obesity (BMI 31), vitamin D insufficiency, and heavy alcohol consumption (no history of alcohol withdrawal, delirium, or seizures). Hospitalist medicine consulted to evaluate patient for an arrhythmia. 1. Acute on chronic palpitations, present on admission. Active. -Concern for cardiac arrhythmia intraoperatively and/or in the immediate postop period. Found to have infection at site of surgery and suspected infection of orthopedic hardware. -Continue to monitor closely on telemetry. Tele monitoring with PACs while in the PACU. No EKG available from the event. Prior EKG on 03/07/2019 is unremarkable. At that time patient noted to be in sinus rhythm. EKG reviewed: SR (v-rate 88), nonischemic and without pathological Q-waves, QT/QTc 356/432. -TSH within normal limits at 2.53. -Continue to monitor for electrolyte and metabolic abnormalities and replete electrolytes as needed. Goal K+ > 4.0 and Mg+ > 2.0. -Ordered echocardiogram, pending. -Risk stratified: Hemoglobin A1C 5.1% indicative of tight glycemic control and fasting lipid panel demonstrated: Total cholesterol 130, triglycerides 84, LDL 92, and HDL low at 21. -Treat underlying infection. 2. Failed left ORIF with acute infection, present on admission. Active. -Patient was found to have large hematoma in the subcutaneous tissues which tracked down deep to the fascia. In addition to the hematoma, purulence fluid was noted. A Gram stain and culture were obtained, which revealed multiple WBCs, as well as, gram-positive cocci. Clinical appearance of deep infection was noted. Given above findings, internal fixation was removed and the wound was debrided. -Continue pain and postoperative management per orthopedic surgery. Continue a 4 week course of empiric therapy with vancomycin. -Plan for revision of total hip arthroplasty after successful treatment and resolution of the infection. Patient is non weight-bearing of left lower extremity per Ortho. 3. Acute hypomagnesemia, present on admission. Resolved. -Initial magnesium level 1.5. Received magnesium sulfate 2 g IV x1. -Continue to monitor magnesium level closely and replete as necessary. 4. Subacute hyponatremia, present on admission. Active. -Current sodium level 132. Hyponatremia since at least 03/07/2019. Noted to have a normal sodium level in October of 2018. -Potentialy multifactorial and suspected to have multitude of contributing factors including: Acute infection, hypovolemia secondary to recent surgery with insensible losses and decreased PO intake, hydrochlorothiazide use, and excessive alcohol consumption. -Ordered serum osmolality, pending -Discontinued HCTZ indefinitely. This is not an ideal medication for this patient, given history of lifelong and potentially excessive alcohol use and a habit of intermittent fasting. 4. Acute blood loss and iron deficiency anemia, present on admission. Active. -Secondary to acute blood loss associated with recent surgery for left total hip revision. Patient has also been taking 650 mg of ASA daily that was stopped 1 week ago by report and has a known longstanding history of excessive alcohol consumption. -Initial hemoglobin 11.1. Postop 9.7 and now dropped to 7.8 this morning. Concern for continued bleed vs intraop loss. Continue to monitor vital signs closely and signs of bleeding. Transfusion goal <7.0. -Iron panel demonstrated iron deficiency anemia likely related to acute blood loss. Will hold off on starting iron supplementation due to acute infection as above. -Continue to monitor H&H closely. 5. Excessive consumption of alcohol, chronic, present on admission. Stable. -Continue vitamin and thiamine. -Monitor for s/s of EtOH withdraw 6. Vitamin-D insufficiency, subacute, present on admission, active -Vitamin D3 level 23.3 ng/ml (03/09/2019). Continue home vitamin-D3 supplementation 2000 units daily. Thank you for consulting our services we will continue to follow along with you.
[2019-04-03 08:48] LABS: Add Manual Diff / Slide Review NO; Basophils Absolute Auto 0 /uL (0-100); Basophils Percent Auto 0.1 % (0-2); Eosinophils Absolute Auto 0 /uL (0-450); Hemoglobin 7.8 g/dL (12.0-16.0); Lymphocytes Absolute Auto 800 /uL (1100-4500); Lymphocytes Percent Auto 6.9 % (25-40); Mean Corpuscular HGB Conc 32.3 % (30-36); Mean Corpuscular Hemoglobin 31.5 PG (26-34); Mean Corpuscular Volume 97.4 fL (80-100); Monocytes Absolute Auto 900 /uL (0-900); Monocytes Percent Auto 7.5 % (3-14); Neutrophils Absolute Auto 10500 /uL (1500-7000); Neutrophils Percent Auto 85.5 % (50-75); Platelet Count 331 X10^3/uL (150-400); Red Blood Cell Count 2.48 X10^6/uL (4.0-5.2); White Blood Cell Count 12.3 X10^3/uL (4.5-11.0)
[2019-04-03 08:54] LABS: Hematocrit 24.1 % (36-46)
[2019-04-03] MEDS: CHOLECALCIFEROL (VITAMIN D3) 1,000 UNIT TABLET 2000 UNIT PO (09:06)
[2019-04-03] MEDS: ASCORBIC ACID 500 MG TABLET PO ×2 (09:06→21:11)
[2019-04-03] MEDS: FERROUS SULFATE 325 MG TABLET PO ×2 (09:06→17:12)
[2019-04-03] MEDS: ASPIRIN EC 81 MG TABLET PO ×2 (09:06→21:11)
[2019-04-03] MEDS: AMLODIPINE 5 MG TABLET PO (09:07)
[2019-04-03] MEDS: PRENATAL VIT,CALC/IRON/FOLIC 1 TABLET 1 TAB PO (09:10)
[2019-04-03] MEDS: LISINOPRIL 20 MG TABLET PO (09:10)
[2019-04-03] MEDS: THIAMINE 100 MG TABLET PO (09:11)
[2019-04-03] MEDS: VANCOMYCIN 1,250 MG in SODIUM CHLORIDE 0.9% 250 ML IV ×2 (09:13→21:10)
[2019-04-03 09:24] LABS: Procalcitonin 0.71 ng/mL (<0.5)
[2019-04-03 09:25] LABS: BUN Creatinine Ratio 27.5 (6-22); Blood Urea Nitrogen 11 mg/dL (7-17); Calcium 8.2 mg/dL (8.4-10.2); Carbon Dioxide 27 mmol/L (22-32); Chloride 100 mmol/L (98-107); Estimated Glomerular Filt Rate > 60.0 mL/min (>60); Glucose 113 mg/dL (80-110); HEMOLYSIS < 15 (0-50); Magnesium 2.1 mg/dL (1.6-2.3); Potassium 4.5 mmol/L (3.4-5.1); Sodium 132 mmol/L (137-145)
--- NOTE | 2019-04-03 10:44 | PM.PNPO.1 ---
Subjective Date Patient Seen: 04/03/19 Time Patient Seen: 10:45 Interval history: Hospital day 5, postop day 1 following left hip ORIF removal and I and D by Dr. Baer. Patient had previous ORIF with nail and screws with protrusio. It was planned to have patient have a revision total hip arthroplasty yesterday. On entering the hip joint and surgery she was found to have purulence. Hardware was removed and I and D done. Bone was left in place. Patient is now on vancomycin and Ancef. G stain did note WBC and gram-positive cocci and awaiting culture. She is nonweightbearing to left leg. She did have a PICC line placed yesterday. Dr. Baer anticipate patient being on IV antibiotic 4-6 weeks and then possible total hip arthroplasty if her infection is clear. Exam Vital Signs (past 8 hours): - 04/03/19 03:34 04/03/19 07:37 Temperature 97.5 F L 98.3 F Pulse Rate 81 76 Respiratory Rate 17 18 Blood Pressure 123/54 L 118/54 L Pulse Oximetry 93 93 Fraction of Inspired Oxygen 21 Oxygen Delivery Method Room Air Oxygen Flow Rate 0 Narrative Exam Narrative: Alert, oriented no acute distress resting in bed. Legs. Dressing to left hip area is dry without drainage. Hemovac in place with decreasing drainage. No calf pain or swelling. Pulses symmetrical. Objective Labs Result Diagrams: 04/03/19 08:35 04/03/19 08:35 Labs: Laboratory Results - last 24 hr 04/02/19 04/02/19 04/02/19 21:20 21:20 21:20 WBC 12.5 H RBC 3.03 L Hgb 9.7 L Hct 29.4 L MCV 97.0 MCH 32.1 MCHC 33.0 RDW 13.8 Plt Count 359 Neut % (Auto) 94.0 H Lymph % (Auto) 2.5 L [place] % (Auto) 3.4 Eos % (Auto) 0.0 L Baso % (Auto) 0.1 Neut # (Auto) 94291 H Lymph # (Auto) 300 L [place] # (Auto) 400 Eos # (Auto) 0 Baso # (Auto) 0 Sodium 132 L Potassium 4.2 Chloride 99 Carbon Dioxide 26 BUN 10 Creatinine 0.50 L Estimated GFR > 60.0 BUN/Creatinine Ratio 20.0 Glucose 163 H Hemoglobin A1c Calcium 8.5 Magnesium 1.5 L Iron TIBC % Saturation Transferrin Triglycerides Cholesterol LDL Cholesterol, Calc VLDL Cholesterol HDL Cholesterol Procalcitonin TSH 2.53 04/03/19 04/03/19 04/03/19 05:28 05:28 05:28 WBC RBC Hgb 8.2 L Hct 24.6 L MCV MCH MCHC RDW Plt Count Neut % (Auto) Lymph % (Auto) [place] % (Auto) Eos % (Auto) Baso % (Auto) Neut # (Auto) Lymph # (Auto) [place] # (Auto) Eos # (Auto) Baso # (Auto) Sodium Potassium Chloride Carbon Dioxide BUN Creatinine Estimated GFR BUN/Creatinine Ratio Glucose Hemoglobin A1c Calcium Magnesium Iron < 10 L TIBC 139 L % Saturation 7 L Transferrin < 80 L Triglycerides 84 Cholesterol 130 L LDL Cholesterol, Calc 92 VLDL Cholesterol 17 HDL Cholesterol 21 L Procalcitonin TSH 04/03/19 04/03/19 04/03/19 05:28 08:35 08:35 WBC 12.3 H RBC 2.48 L Hgb 7.8 L Hct 24.1 L MCV 97.4 MCH 31.5 MCHC 32.3 RDW 14.0 Plt Count 331 Neut % (Auto) 85.5 H Lymph % (Auto) 6.9 L [place] % (Auto) 7.5 Eos % (Auto) 0.0 L Baso % (Auto) 0.1 Neut # (Auto) 43292 H Lymph # (Auto) 800 L [place] # (Auto) 900 Eos # (Auto) 0 Baso # (Auto) 0 Sodium Potassium Chloride Carbon Dioxide BUN Creatinine Estimated GFR BUN/Creatinine Ratio Glucose Hemoglobin A1c 5.1 Calcium Magnesium Iron TIBC % Saturation Transferrin Triglycerides Cholesterol LDL Cholesterol, Calc VLDL Cholesterol HDL Cholesterol Procalcitonin 0.71 H TSH 04/03/19 08:35 WBC RBC Hgb Hct MCV MCH MCHC RDW Plt Count Neut % (Auto) Lymph % (Auto) [place] % (Auto) Eos % (Auto) Baso % (Auto) Neut # (Auto) Lymph # (Auto) [place] # (Auto) Eos # (Auto) Baso # (Auto) Sodium 132 L Potassium 4.5 Chloride 100 Carbon Dioxide 27 BUN 11 Creatinine 0.40 L Estimated GFR > 60.0 BUN/Creatinine Ratio 27.5 H Glucose 113 H Hemoglobin A1c Calcium 8.2 L Magnesium 2.1 Iron TIBC % Saturation Transferrin Triglycerides Cholesterol LDL Cholesterol, Calc VLDL Cholesterol HDL Cholesterol Procalcitonin TSH Assessment & Plan Post-op Postoperative Procedures Operation Date: 04/02/19 12:15 Actual Procedures Side Surgeon p Removal Hardware prior ORIF, Excisional Irrigation and Debridement, Left Hip Left Linda A MD [place] Plan: I did discuss patient's recent lab work with Dr. Baer who recommends waiting on any blood replacement. Will recheck labs in the morning. Awaiting culture results. Anticipate discharge to SNF in the next couple of days if stable.
--- NOTE | 2019-04-03 10:48 | P.PN_ITS ---
Subjective Date Patient Seen: 04/03/19 Time Patient Seen: 10:45 Interval history: Hospital day 5, postop day 1 following left hip ORIF removal and I and D by Dr. Baer. Patient had previous ORIF with nail and screws with protrusio. It was planned to have patient have a revision total hip arthroplasty yesterday. On entering the hip joint and surgery she was found to have purulence. Hardware was removed and I and D done. Bone was left in place. Patient is now on vancomycin and Ancef. G stain did note WBC and gram-positive cocci and awaiting culture. She is nonweightbearing to left leg. She did have a PICC line placed yesterday. Dr. Baer anticipate patient being on IV antibi otic 4-6 weeks and then possible total hip arthroplasty if her infection is clear. Exam Vital Signs (past 8 hours): - 04/03/19 03:34 04/03/19 07:37 Temperature 97.5 F L 98.3 F Pulse Rate 81 76 Respiratory Rate 17 18 Blood Pressure 123/54 L 118/54 L Pulse Oximetry 93 93 Fraction of Inspired Oxygen 21 Oxygen Delivery Method Room Air Oxygen Flow Rate 0 Narrative Exam Narrative: Alert, oriented no acute distress resting in bed. Legs. Dr meyer to left hip area is dry without drainage. Hemovac in place with decreasing drainage. No calf pain or swelling. Pulses symmetrical. Objective Labs Result Diagrams: 04/03/19 08:35 04/03/19 08:35 Labs: Laboratory Results - last 24 hr 04/02/19 04/02/19 04/02/19 21:20 21:20 21:20 WBC 12.5 H RBC 3.03 L Hgb 9.7 L Hct 29.4 L MCV 97.0 MCH 32.1 MCHC 33.0 RDW 13.8 Plt Count 359 Neut % (Auto) 94.0 H Lymph % (Auto) 2.5 L [place] % (Auto) 3.4 Eos % (Auto) 0.0 L Baso % (Auto) 0.1 Neut # (Auto) 82240 H Lymph # (Auto) 300 L [place] # (Auto) 400 Eos # (Auto) 0 Baso # (Auto) 0 Sodium 132 L Potassium 4.2 Chloride 99 Carbon Dioxide 26 BUN 10 Creatinine 0.50 L Estimated GFR > 60.0 BUN/Creatinine Ratio 20.0 Glucose 163 H Hemoglobin A1c Calcium 8.5 Magnesium 1.5 L Iron TIBC % Saturation Transferrin Triglycerides Cholesterol LDL Cholesterol, Calc VLDL Cholesterol HDL Cholesterol Procalcitonin TSH 2.53 04/03/19 04/03/19 04/03/19 05:28 05:28 05:28 WBC RBC Hgb 8.2 L Hct 24.6 L MCV MCH MCHC RDW Plt Count Neut % (Auto) Lymph % (Auto) [place] % (Auto) Eos % (Auto) Baso % (Auto) Neut # (Auto) Lymph # (Auto) [place] # (Auto) Eos # (Auto) Baso # (Auto) Sodium Potassium Chloride Carbon Dioxide BUN Creatinine Estimated GFR BUN/Creatinine Ratio Glucose Hemoglobin A1c Calcium Magnesium Iron < 10 L TIBC 139 L % Saturation 7 L Transferrin < 80 L Triglycerides 84 Cholesterol 130 L LDL Cholesterol, Calc 92 VLDL Cholesterol 17 HDL Cholesterol 21 L Procalcitonin TSH 04/03/19 04/03/19 04/03/19 05:28 08:35 08:35 WBC 12.3 H RBC 2.48 L Hgb 7.8 L Hct 24.1 L MCV 97.4 MCH 31.5 MCHC 32.3 RDW 14.0 Plt Count 331 Neut % (Auto) 85.5 H Lymph % (Auto) 6.9 L [place] % (Auto) 7.5 Eos % (Auto) 0.0 L Baso % (Auto) 0.1 Neut # (Auto) 05282 H Lymph # (Auto) 800 L [place] # (Auto) 900 Eos # (Auto) 0 Baso # (Auto) 0 Sodium Potassium Chloride Carbon Dioxide BUN Creatinine Estimated GFR BUN/Creatinine Ratio Glucose Hemoglobin A1c 5.1 Calcium Magnesium Iron TIBC % Saturation Transferrin Triglycerides Cholesterol LDL Cholesterol, Calc VLDL Cholesterol HDL Cholesterol Procalcitonin 0.71 H TSH 04/03/19 08:35 WBC RBC Hgb Hct MCV MCH MCHC RDW Plt Count Neut % (Auto) Lymph % (Auto) [place] % (Auto) Eos % (Auto) Baso % (Auto) Neut # (Auto) Lymph # (Auto) [place] # (Auto) Eos # (Auto) Baso # (Auto) Sodium 132 L Potassium 4.5 Chloride 100 Carbon Dioxide 27 BUN 11 Creatinine 0.40 L Estimated GFR > 60.0 BUN/Creatinine Ratio 27.5 H Glucose 113 H Hemoglobin A1c Calcium 8.2 L Magnesium 2.1 Iron TIBC % Saturation Transferrin Triglycerides Cholesterol LDL Cholesterol, Calc VLDL Cholesterol HDL Cholesterol Procalcitonin TSH Assessment & Plan Post-op Postoperative Procedures Operation Date: 04/02/19 12:15 Actual Procedures Side Surgeon p Removal Hardware prior ORIF, Excisional Irrigation and Debridement, Left Hip Left Linda A MD [place] Plan: I did discuss patient's recent lab work with Dr. Baer who recommends waiting on any blood replacement. Will recheck labs in the morning. Awaiting culture results. Anticipate discharge to SNF in the next couple of days if stable.
--- NOTE | 2019-04-03 10:56 | CM.DPC ---
DCP: continued: Case again received and EMR for last few days reviewed. Discussed case in Team Rounds. OT is ordered post op: PT order is obtained. Pt did go to surgery as planned yesterday: initially for a hardware removal and GIA. This changed during the surgical process. Hardware was removed. Infection noted. I&D done and pt now with a plan for at least 4 weeks IV antibiotics and eventual GIA once the infection is gone. PT is NWB on L leg. Mark Ortiz is updated and [facility] is faxing updated clinical notes for the snf/[facility] auth request and Debo notes this will not be a problem. Mark cannot authorize until day before or day of d/c so will need to have some clear direction on the IV plan for the orthopedic team. Hospitalists were consulted: Dr. Higginbotham says she expects to sign off on this case today after an ECHO is done. P: return to [facility] when all is in place as per above. Will check in with pt today and be following.
[2019-04-03 11:07] LABS: Erythrocyte Sedimentation Rate > 140 MM/HR (0-20)
[2019-04-03] MEDS: CEFAZOLIN 2 GM/100 ML FROZ.PIGGY IV ×2 (11:09→17:14)
[2019-04-03 12:00] VITALS: BP 134/61; PULSE 84; RESP 18; TEMP 36.8; O2SAT 97
--- NOTE | 2019-04-03 15:00 | PT.IPRE ---
Current Diagnoses Breakdown (mechanical) of internal fixation device of left femur, initial encounter (03/30/19) Personal history of (healed) traumatic fracture (03/30/19) Presence of other bone and tendon implants (03/30/19) Surgery Performed Operation Date: 04/02/19 12:15 Actual Procedures p Removal Hardware prior ORIF, Excisional Irrigation and Debridement, Left Hip(Left) - Linda Baer MD Surgical History (Last Updated 04/03/19 @ 03:41 by ANDRES Hopper) History of total thyroidectomy (Chronic) History of myomectomy (Chronic) History of thyroidectomy (Inactive) Medical History (Last Updated 04/03/19 @ 03:39 by ANDRES Hopper) History of cervical cancer (Acute) Hypertension (Chronic) Hypothyroid (Chronic) Thyroid cancer (Chronic) Physical Therapy Inpatient Evaluation/Re-Eval M1 PT/OT-IP Prior Functional Status Start: 03/31/19 13:06 Freq: NEEDED Status: Active Protocol: Document 04/03/19 15:36 PJM (Rec: 04/03/19 16:03 PJM [id number]) Medical Review Prior Functional Status Medical History Reviewed Yes Diet/Fluid Consistency Regular Communication WNL Mobility and Gait prior to initial hip surgery on 03/07/19, indep. 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 Cell Designer Sock Aid Employment Status Self-Employed Additional Social History Comment pt plans to use BSC over toilet M2 PT-IP Current Condition Start: 03/31/19 13:06 Freq: NEEDED Status: Active Protocol: Document 04/03/19 15:00 AB (Rec: 04/03/19 15:53 AB [id number]) Physical Therapy Current Condition Current Condition Evaluation Date 04/03/19 Treatment Diagnosis s/pL hip removal of int fixation & excisional I&D; diff in walking Onset Date 03/30/19 Weight Bearing Status Weight Bearing Status Non-Weight Bearing Allowed Weight Bearing Amount (enter % LLE: NWB or #) (%) M3 PT-IP Subjective Start: 03/31/19 13:06 Freq: NEEDED Status: Active Protocol: Document 04/03/19 15:00 AB (Rec: 04/03/19 13:59 AB [id number]) M4 PT-IP Mobility and Gait Start: 03/31/19 13:06 Freq: NEEDED Status: Active Protocol: Document 04/03/19 15:00 AB (Rec: 04/03/19 15:50 AB [id number]) PT-Bed Mobility Assessment Supine to Sit Supine to Sit Maximum Assistance 2 Person Assistance Head of Bed Elevated Bedrails Sit to Supine Sit to Supine Maximum Assistance 2 Person Assistance Bedrails Scooting Scooting to Edge of Bed Maximum Assistance Scooting Up and Down in Bed Maximum Assistance Dependent PT-Transfer Assessment Sit to and From Stand Sit to and from Stand Maximum Assistance 2 Person Assistance Use of Upper Extremities Equipment Transfer Assistive Device Gait Belt Front Wheeled Walker Orthotic/Prosthetic Devices or Brace: No Comments Mobility Comments completed supine to sit max A x 2 and max cues. pt sat on EOB min A and cues to keep body forward. pt completed sit <>stand max A x 2 and max cues and with bed elevated. pt required max A x 2 for stability and to maintain NWB on LLE. pt refused to transfer on to the chair. pt required max A x 2 for controlled descent to the EOB. . pt refused further standing . required max A x 2 for sit to supine and for postioning on the bed. left pt in bed with nurse. call light and table placed within reach. Gait Assessment Comments Gait Comments unable at this time PT-Balance Assessment Sitting Balance and Reactions Static Sitting Balance Ability Fair Dynamic Sitting Balance Ability Fair Standing Balance and Reactions Static Standing Balance Ability Poor Dynamic Standing Balance Ability Poor Device Used FWW M5 PT-IP Objective Assessments Start: 03/31/19 13:06 Freq: NEEDED Status: Active Protocol: Document 04/03/19 15:00 AB (Rec: 04/03/19 15:50 AB [id number]) Orientation Orientation/Cognition Level of Alertness Alert Safety Awareness Decreased Safety Awareness Memory Description Short Term Impaired Gross Range of Motion Lower Extremity ROM Assessment Left Impaired Impairments L hip and knee tightness noted Strength Lower Extremity Strength Assessment Bilaterally Impaired Comments Strength Comments RLE: 4-/5 LLE: 3-/5 M6 PT-IP Treatment Start: 03/31/19 13:06 Freq: NEEDED Status: Active Protocol: Document 04/03/19 15:00 AB (Rec: 04/03/19 15:50 AB [id number]) Physical Therapy Treatment Exercises Exercises Heel Slides Education Education Provided Precautions Weight Bearing Status Safety M7 PT-IP Assessment and Plan Start: 03/31/19 13:06 Freq: NEEDED Status: Active Protocol: Document 04/03/19 15:00 AB (Rec: 04/03/19 15:50 AB [id number]) PT Summary Assessment and Plan Potential Rehabilitation Potential Fair Status of Condition at Evaluation Evolving Summary Impairments Pain ROM Strength Balance Coordination Sensation Tone Cognition Bed Mobility Transfers Gait Activity Tolerance Assessment Summary pt requiring max A x 2 with mobility at this time and unable to ambulate. pt will require SNF rehab to improve mobility. Goals Bed Mobility Goal Contact Guard Assistance Transfer Goal Contact Guard Assistance Front Wheeled Walker Gait Goal Contact Guard Assistance Front Wheel Walker Gait Distance 50 Days to Meet Goals 10 Frequency of Treatment Frequency Of Treatment Twice a Day Treatment Plan Physical Therapy Treatment Plan Bed Mobility Training Transfer Training Gait Training Therapeutic Exercise Balance Retraining Post Op Education Discharge Planning Hot or Cold Pack Neuromuscular Re-ed Coordination Retraining Manual Therapy Recommendations To Nursing Amount of Assist Needed Mechanical Lift Discharge Recommendations PT Discharge Recommendations SNF Rehab
--- NOTE | 2019-04-03 15:36 | OT.IP.EVAL ---
Current Diagnoses Breakdown (mechanical) of internal fixation device of left femur, initial encounter (03/30/19) Personal history of (healed) traumatic fracture (03/30/19) Presence of other bone and tendon implants (03/30/19) Surgery Performed Operation Date: 04/02/19 12:15 Actual Procedures p Removal Hardware prior ORIF, Excisional Irrigation and Debridement, Left Hip(Left) - Linda Baer MD Past Medical History (Last Updated 04/03/19 @ 03:39 by ANDRES Hopper) History of cervical cancer (Acute) Hypertension (Chronic) Hypothyroid (Chronic) Thyroid cancer (Chronic) Surgical History (Last Updated 04/03/19 @ 03:41 by ANDRES Hopper) History of total thyroidectomy (Chronic) History of myomectomy (Chronic) History of thyroidectomy (Inactive) Occupational Therapy Inpatient Evaluation/Re-Eval M1 PT/OT-IP Prior Functional Status Start: 03/31/19 13:06 Freq: NEEDED Status: Active Protocol: Document 04/03/19 15:36 PJM (Rec: 04/03/19 16:03 RALPH [id number]) Medical Review Prior Functional Status Medical History Reviewed Yes Diet/Fluid Consistency Regular Communication WNL Mobility and Gait prior to initial hip surgery on 03/07/19, indep. 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 4 SE L ascending rail- friend can stay with her upon d/c if needed Home Environment Standard Height Toilet Tub/Shower Home Equipment Front Wheel Walker Straight Cane Bedside Commode Leg Machine Straw Hat Presser Caisson Worker Sock Aid Employment Status Self-Employed Additional Social History Comment pt plans to use BSC over toilet M2 OT-IP Current Condition Start: 04/03/19 15:44 Freq: Status: Active Protocol: Document 04/03/19 15:36 PJM (Rec: 04/03/19 16:03 PJM [id number]) Occupational Therapy Current Condition Current Condition Evaluation Date 04/03/19 Treatment Diagnosis decr'd self care, mobility s/p hardware failure L hip ORIF w /infection Diagnosis Onset Date 04/02/19 Post Operative Precautions Other Precautions contact; 2 hip drains+SANAM drain Weight Bearing Status Weight Bearing Status Non-Weight Bearing Allowed Weight Bearing Amount (enter % LLE or #) (%) M3 OT- IP Subjective and Pain Start: 04/03/19 15:44 Freq: Status: Active Protocol: Document 04/03/19 15:36 PJM (Rec: 04/03/19 16:03 PJM [email or web address]) OT- Subjective Occupational Therapy Visit Type Type Initial Evaluation Visit Start Time 15:02 Visit Stop Time 15:36 Total Visit Minutes 34 Notes co tx with P.T. for mobility Occupational Therapy Visit Comments Patient Comments I don't want to get up to that chair. Patient/Caregiver Goals to be able to walk and return to independent living and running her business OT Pain Assessment Pain When Pain Assessed After Treatment Pain Present Pain Present Pain Reported Location Left Hip Intensity 6 Description Aching Acute Pain Behaviors Facial Grimacing Guarding Wincing Management Techniques Distraction Re-positioning Timing of Activity with Medications M4 OT- IP ADL's Start: 04/03/19 15:44 Freq: Status: Active Protocol: Document 04/03/19 15:36 PJM (Rec: 04/03/19 16:03 PJM NRTM) OT [id number] General Evaluation Self-Feeding Ability Independent Comments OT Self-Feeding Comments after set up in bed OT ADL-Grooming General Evaluation Grooming Ability Standby Assistance Areas Needing Assistance Face Washing Comments OT Grooming Comments after set up in bed OT ADL-Dressing General Eval Lower Body Dressing Ability Total Assistance Areas Needing Assistance Pants/Shorts Socks Shoes Assistive Devices Dressing Assistive Devices Caisson Worker Sock Aid Comments OT Dressing Comments pt familiar with adapted equipt for lower body dressing from recent stay at [facility] OT ADL-Toileting General Evaluation Toileting Ability Total Assistance Comments OT Toileting Comments caraballo in place OT ADL-Bathing Bathing Type Bathing Type Sponge Bath General Evaluation Bathing Ability Maximal Assistance Comments OT Bathing Comments pt states she has transfer tub bench for use in tub shower combo at home M5 OT- IP IADL's Start: 04/03/19 15:44 Freq: Status: Active Protocol: Document 04/03/19 15:36 PJM (Rec: 04/03/19 16:03 PJM NRTM) OT-Instrumental Activities of Daily Living Deficits IADL Deficits Identified Deficits Home Safety Awareness Awareness of Need for Assistance at Home Good Awareness Ability to Problem Solve Emergency Able to Problem Solve Situations Medication Management Medication Management No Deficits Identified Money Management Money Management No Deficits Identified Meal Preparation Meal Preparation Caregiver Provides Assist Meal Preparation Comments pt plans to have friend stay with her overnight to assist with evening meal and breakfast Oncology Rn Oncology Rn Caregiver Provides Assist Oncology Rn Comments pt will need assist with all senior brand manager Driving Driving Caregiver Provides Assist Driving Comments pt will need assist until mobility improves M6 OT- IP Functional Cognition Start: 04/03/19 15:44 Freq: Status: Active Protocol: Document 04/03/19 15:36 PJ (Rec: 04/03/19 16:03 [facility] [id number]) Cognitive Factors Limiting Selfcare Function Cognitive Ability Level of Alertness Alert Patient Orientation Name Age Birthday Month Date Year Day of Week Place Situation Attention Span Ability Capable of Focused Attention Capable of Sustained Attention Ability to Follow Commands Able to Follow One Step Commands Memory Description No Deficits Noted Safety Awareness No Deficits Noted Problem Solving Ability No deficits Noted Cognitive Comments Cognitive Assessment Comments pt appears anxious about mobility due to pain level OT- Vision and Hearing OT- Hearing Assessment OT- Hearing Assessment WFL OT- Vision Assessment Visual Acuity WFL Glasses All The Time M7 OT- IP Mobility and Balance Start: 04/03/19 15:44 Freq: Status: Active Protocol: Document 04/03/19 15:36 PJM (Rec: 04/03/19 16:03 [facility] [id number]) OT- Bed Mobility Assessment Supine to Sit Supine to Sit Assist Maximum Assistance 2 Person Assistance Head of Bed Elevated Sit to Supine Sit to Supine Assist Maximum Assistance 2 Person Assistance Scooting Scooting to Edge of Bed Maximum Assistance 1 Person Assistance Scooting Up and Down in Bed Maximum Assistance 2 Person Assistance OT-Transfer Assessment Sit to and From Stand Sit to and from Stand Maximum Assistance 2 Person Assistance Use of Upper Extremities Comments Mobility Comments pt declined to transfer to chair this session due to pain level; stood x1 and worked on scooting along edge of bed; pt needs max cues and assist to adhere to NWB LLE OT- Balance Assessment Sitting Balance and Reactions Static Sitting Balance Ability Fair Dynamic Sitting Balance Ability Fair Standing Balance and Reactions Static Standing Balance Ability Fair Dynamic Standing Balance Ability Poor M8 OT- IP Objective Assessments Start: 04/03/19 15:44 Freq: Status: Active Protocol: Document 04/03/19 15:36 PJM (Rec: 04/03/19 16:03 PJM [id number]) OT Gross Range of Motion Upper Extremity Range of Motion Assessment Within Functional Limits OT Strength Upper Extremity Strength Assessment Within Functional Limits Hand [employer] An[employer] Strength Hand Dominance Right OT- Coordination Assessment Comments Coordination Comments BUE WFL OT-Muscle Tone Assessment Muscle Tone WNL Yes OT Sensation Assessment Comments Summary Comments BUE WNL per pt M9 OT- IP Assessment and Plan Start: 04/03/19 15:44 Freq: Status: Active Protocol: Document 04/03/19 15:36 PJM (Rec: 04/03/19 16:03 PJM [id number]) OT Summary Assessment and Plan Potential Rehabilitation Potential Good Analytic Complexity at Evaluation Low Summary OT Impairments Pain Strength Balance Functional Mobility Grooming Dressing Toileting Bathing Toilet Transfers Shower Transfers Assessment Summary Low complexity OT assessment completed with emphasis on functional mobility with new NWB status on LLE after recent removal of infected/failed L ORIF hardware on 04/02/19. Pt will need 4-5 weeks IV antibiotics and then will have L GIA when infection cleared. Pt currently has significant performance deficits in all functional mobility, requiring max assist of 2 for all mobility with therapy and lift transfer by nursing. Pt also has significant performance deficits in standing grooming, lower body dressing, bathing and toileting as described above; as well as inability to perform any IADLS. 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 Recommend SNF at d/c for further rehab services. Goals Grooming Goal Independent Dressing Goal Minimal Assistance Toileting Goal Moderate Assistance Bathing Goal Minimal Assistance Toilet Transfer Goal Moderate Assistance Bedside Commode Patient/Caregiver Education Goal Demonstrate Post-Op Precautions Demonstrate Energy Conservation and Pacing OT-Other Goals Grooming to be done seated in chair after set up. Bathing goal is for seated upper body sponge bath Days to Meet Goals 5 Frequency of Treatment Frequency Of Treatment Once a Day Treatment Plan OT Treatment Plan ADL Training Functional Mobility Patient/Family Education Discharge Planning Discharge Recommendations OT Discharge Recommendations SNF Rehab Home Equipment Needs to be determined in next rehab setting
[2019-04-03 15:50] VITALS: BP 128/55; PULSE 85; RESP 18; TEMP 37.3; O2SAT 97
[2019-04-03] MEDS: SODIUM CHLORIDE 0.9% FLUSH 10 ML IV ×2 (17:12→21:11)
[2019-04-03 17:32] LABS: Hematocrit 25.4 % (36-46); Hemoglobin 8.5 g/dL (12.0-16.0)
--- NOTE | 2019-04-03 18:50 | PC.NURSE ---
caraballo 183 pt states i think i've just wet my bed. has caraballo catheter in place with clear yellow drainage. bed assessed and is wet. linens changed and pt's skin cleansed. balloon of caraballo deflated (8cc fluid) and advanced. balloon re-inflated with 10cc saline and mateo pad placed. caraballo again hung to gravity and free from loops/kinks and secured to right thigh.
[2019-04-03 19:20] VITALS: BP 145/74; PULSE 85; RESP 18; TEMP 37.1; O2SAT 98
[2019-04-03] MEDS: DOCUSATE 100 MG CAPSULE PO (21:11)
[2019-04-03 23:45] VITALS: BP 112/55; PULSE 87; RESP 18; TEMP 36.9; O2SAT 95
[2019-04-04] VITALS (7 sets, daily range): BP systolic 119–150; BP diastolic 55–75; PULSE 75–82; RESP 16–19; TEMP 36.3–36.8; O2SAT 97–100
--- NOTE | 2019-04-04 00:17 | PC.NURSE ---
Addendum entered by Malinda Thomas R.N. 04/04/19 06:49: Medicated with Vicodin for 6/10 pain (requested 2). Declines ice pack. Refusing to have catheter removed and requesting not to have PT until GIA done; discussed that staying in bed is not an option for that length of time and needs to be getting up to chair to prevent complications. Addendum entered by Malinda Thomas R.N. 04/04/19 06:16: Patient O2 sat 100% so decreased oxygen to 1L/min and now at 94%. HR in 70-80 range. Addendum entered by Malinda Thomas R.N. 04/04/19 04:16: Noted to have HR sustaining in 140's. ANDRES Worrell, informed and new orders received. BP 126/73 with HR of 143 and RR of 12. RA sat 88% so oxygen started per NC @ 2L/min. CORE MANAGER here to examine patient and RT here to do EKG. Blood drawn from PICC for stat labs. Patient is stating pain is only 2/10. IVF bolus started after blood drawn. Addendum entered by Malinda Thomas R.N. 04/04/19 02:53: Patient put call light on and hollering to put my leg back in the bed. Both legs on the bed and left leg actually > 1 ft away from edge. Repositioned onto side but continuing to holler and scream to take it off. Indicates the SCD's are increasing pain and so removed at her request and then medicated with Vicodin. Now patient states pain down from 10/10 to 9/10. Offered either ice pack or warm blanket but refuses. Original Note: Patient is alert and oriented. Breath sounds CTA with RA sat of 95%. HRR; on recent telemetry reading was ST with HR in 140's but per monitor and apical pulse currently in 80's. Denies nausea. BT present and abdomen is soft; passing flatus but no BM since 03/29 although patient states this is her normal. SANAM dressings to left hip are intact with several small spots of sanguinous drainage. Hemovacs x 2 are compressed and intact. Still with an indwelling catheter which is patent. Can assist in repositioning but is reluctant to turn. Did turn slightly onto left side for lung assessment but then back onto back and declines to reposition further. States left hip pain is 4/10 but tolerable; declines ice pack. Next pain meds available at 0100 and patient is aware. Non pitting chronic edema to left LE. Wearing bilateral SCD's. CMS is intact. On contact isolation as per infection control policy until final culture results are back; currently showing a streptococcus bacteria. Fall risk score is high and bed alarm is activated.
[2019-04-04] MEDS: HYDROCODONE/ACET 5/325 TABLET 2 TAB PO ×5 (02:48→20:18)
--- NOTE | 2019-04-04 04:00 | P.EN_ITS ---
Date Patient Seen: 04/04/19 Time Patient Seen: 03:58 Received notification from patient's nurse of heart rate in the 140s. Patient is sleeping. Patient assessed at bedside. Patient was awaken from sleep. Patient states that she is not feeling good, however unable to specifically note the problem. (see pain comment below) Denies headache, chest pain, palpitations, dizziness, lightheadedness, abdominal pain, and nausea Does not appear to be diaphoretic. Alert oriented x3. Patient comments that she has it had pain at left hip, which radiated to her foot earlier in the evening. Noted pain to be a cramping sensation. At time of this assessment notes pain to be tolerable. S1-S2, regular, at times ectopic beats noted, no murmur Breath sounds are clear bilaterally, equal chest rise, no dyspnea or tachypnea, patient on room air SpO2 88-90%, placed patient on 2 L of oxygen Abdomen is soft, rounded, nontender, nondistended Lopez catheter in place to dependent drainage, Lopez bag with what appears to be sufficient urine output Bilateral lower extremities 2 + edema, non-pitting; by pedal pulses palpable 1+, sensation intact, warm to touch Left hip tender to palpation, degree of edema present no overt ecchymoses at site Surgical dressing C/D/I, no evidence of wound drainage on the dressing, she does have x2 surgical drains present Discussed with patient's nurse, left hip does not appear to be more edematous Orders - stat labs CBC, BMP, and magnesium - stat VS 126/73 HR 144 RR 16 SpO2 88% on RA -EKG Sinus tachycardia (v-rate 142), possible atrial flutter, non-specific T wave abnormality Discussed with ENGLISH LANGUAGE LEARNER TEACHER, who also monitor telemetry, and reviewed the telemetry at time of events. Patient having PACs, but no overt atrial flutter or atrial fib. 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 NA 136 K 3.8 Mg 2.0 WBC 10.4 Hgb 8.4 Hct 25.3 Plt 395
[2019-04-04] MEDS: SODIUM CHLORIDE 0.9% FLUSH 10 ML IV ×3 (04:07→20:21)
[2019-04-04] MEDS: SODIUM CHLORIDE 0.9% 1,000 ML 1000 ML IV (04:08)
[2019-04-04 04:18] LABS: Add Manual Diff / Slide Review NO; Basophils Absolute Auto 100 /uL (0-100); Basophils Percent Auto 0.9 % (0-2); Eosinophils Absolute Auto 100 /uL (0-450); Eosinophils Percent Auto 1.2 % (2-4); Hematocrit 25.3 % (36-46); Hemoglobin 8.4 g/dL (12.0-16.0); Lymphocytes Absolute Auto 1700 /uL (1100-4500); Lymphocytes Percent Auto 16.3 % (25-40); Mean Corpuscular HGB Conc 33.1 % (30-36); Mean Corpuscular Hemoglobin 32.1 PG (26-34); Mean Corpuscular Volume 97.1 fL (80-100); Monocytes Absolute Auto 1000 /uL (0-900); Monocytes Percent Auto 9.8 % (3-14); Neutrophils Absolute Auto 7400 /uL (1500-7000); Neutrophils Percent Auto 71.8 % (50-75); Platelet Count 395 X10^3/uL (150-400); Red Blood Cell Count 2.61 X10^6/uL (4.0-5.2); Red Cell Distribution Width 14.2 % (11.6-14.8); White Blood Cell Count 10.4 X10^3/uL (4.5-11.0)
[2019-04-04 04:33] LABS: Blood Urea Nitrogen 12 mg/dL (7-17); Calcium 8.3 mg/dL (8.4-10.2); Carbon Dioxide 30 mmol/L (22-32); Chloride 103 mmol/L (98-107); Estimated Glomerular Filt Rate > 60.0 mL/min (>60); Glucose 101 mg/dL (80-110); HEMOLYSIS < 15 (0-50); Potassium 3.8 mmol/L (3.4-5.1); Sodium 136 mmol/L (137-145)
[2019-04-04] MEDS: LEVOTHYROXINE 75 MCG TABLET PO (05:20)
[2019-04-04] MEDS: dilTIAZem 30 MG TABLET PO (05:20)
[2019-04-04] MEDS: POTASSIUM CHLORIDE 20 MEQ TAB 40 MEQ PO (05:21)
[2019-04-04] MEDS: ASCORBIC ACID 500 MG TABLET PO (08:33)
[2019-04-04] MEDS: CHOLECALCIFEROL (VITAMIN D3) 1,000 UNIT TABLET 2000 UNIT PO (08:33)
[2019-04-04] MEDS: PRENATAL VIT,CALC/IRON/FOLIC 1 TABLET 1 TAB PO (08:33)
[2019-04-04] MEDS: THIAMINE 100 MG TABLET PO (08:33)
[2019-04-04] MEDS: ASPIRIN EC 81 MG TABLET PO ×2 (08:33→20:20)
[2019-04-04] MEDS: LISINOPRIL 20 MG TABLET PO (08:34)
[2019-04-04] MEDS: DOCUSATE 100 MG CAPSULE PO ×2 (08:34→20:21)
[2019-04-04] MEDS: FERROUS SULFATE 325 MG TABLET PO ×2 (08:34→15:50)
[2019-04-04] MEDS: CEFAZOLIN 2 GM/100 ML FROZ.PIGGY IV ×2 (09:14→15:49)
[2019-04-04] MEDS: VANCOMYCIN TROUGH 1 REQUEST MISC (09:14)
[2019-04-04] MEDS: OXYCODONE IR 5 MG TABLET PO (09:31)
[2019-04-04 09:50] LABS: Vancomycin Trough 9.6 ug/mL (10-20)
--- NOTE | 2019-04-04 10:01 | PC.NURSE ---
Asked to assist with hemovac drain removal per MD order, 2 hemovacs to right hip area discontinued without difficulty, gauze with tegaderm placed to site. Patient tolerated well.
--- NOTE | 2019-04-04 10:02 | PT.IPTN ---
Current Diagnoses Breakdown (mechanical) of internal fixation device of left femur, initial encounter (03/30/19) Personal history of (healed) traumatic fracture (03/30/19) Presence of other bone and tendon implants (03/30/19) Surgery Performed Operation Date: 04/02/19 12:15 Actual Procedures p Removal Hardware prior ORIF, Excisional Irrigation and Debridement, Left Hip(Left) - Linda Baer MD Physical Therapy Treatment Note M2 PT-IP Current Condition Start: 03/31/19 13:06 Freq: NEEDED Status: Active Protocol: Document 04/03/19 15:00 AB (Rec: 04/03/19 15:53 AB [id number]) Physical Therapy Current Condition Current Condition Evaluation Date 04/03/19 Treatment Diagnosis s/pL hip removal of int fixation & excisional I&D; diff in walking Onset Date 03/30/19 Weight Bearing Status Weight Bearing Status Non-Weight Bearing Allowed Weight Bearing Amount (enter % LLE: NWB or #) (%) M3 PT-IP Subjective Start: 03/31/19 13:06 Freq: NEEDED Status: Active Protocol: Document 04/04/19 10:02 AB (Rec: 04/04/19 11:46 AB [id number]) Subjective Physical Therapy Visit Type Type Treatment Note Visit Start Time 10:02 Visit Stop Time 10:42 Total Visit Minutes 40 Number of VITREO RETINAL SURGEON Visits 0 Physical Therapy Visit Comments Patient Comments pt initially refusing PT, stating that she needs to wait for her next pain medication. pt just got her pain meds ~ 30 min ago. pt stated that it 's only a booster and not the usually pain meds. informed nurse and stated that she gave pt percolone. informed pt and pt agreed to do therapy. pt is focused on her pain meds . M4 PT-IP Mobility and Gait Start: 03/31/19 13:06 Freq: NEEDED Status: Active Protocol: Document 04/04/19 10:02 AB (Rec: 04/04/19 11:46 AB [id number]) PT-Bed Mobility Assessment Supine to Sit Supine to Sit Maximum Assistance 2 Person Assistance Head of Bed Elevated Bedrails Sit to Supine Sit to Supine Maximum Assistance 2 Person Assistance Bedrails Scooting Scooting to Edge of Bed Maximum Assistance Scooting Up and Down in Bed Maximum Assistance PT-Transfer Assessment Sit to and From Stand Sit to and from Stand Maximum Assistance 1 Person Assistance 2 Person Assistance Use of Upper Extremities Equipment Transfer Assistive Device Gait Belt Front Wheeled Walker Orthotic/Prosthetic Devices or Brace: No Comments Mobility Comments pt completed supine to sit max A x 1-2 and max cues with HOB elevated. pt was able to sit on EOB initially requiring mod A but after positioning only requiring SBA. pt completed sit to stand max A x 1-2 and max cues. required assist to keep LLE off the floor for NWB. pt was able to stand using FWW mod A and cues. attempted transfer to the chair and pt was able to hop x 2 max A. instructed to pivot and pt completed with mod A but pt unable to transfer to the chair and wanted to sit back down to the bed. pt required max A with stand to sit with support on LLE. educated pt on importance of sitting up on a chair and mobility. pt understood but refused to sit on the chair. stated that she will sit on EOB of a few minutes. pt tolerated ~ 5 min sitting on EOB. completed sit to stand from EOB mod A x 2 and max cues and pt was able to pivot towards HOB mod A x 2 using FWW. completed sit to supine max A x 2 and max cues . positioned pt on the bed. call light and table placed within reach. M5 PT-IP Objective Assessments Start: 03/31/19 13:06 Freq: NEEDED Status: Active Protocol: Document 04/03/19 15:00 AB (Rec: 04/03/19 15:50 AB [id number]) Orientation Orientation/Cognition Level of Alertness Alert Safety Awareness Decreased Safety Awareness Memory Description Short Term Impaired Gross Range of Motion Lower Extremity ROM Assessment Left Impaired Impairments L hip and knee tightness noted Strength Lower Extremity Strength Assessment Bilaterally Impaired Comments Strength Comments RLE: 4-/5 LLE: 3-/5 M6 PT-IP Treatment Start: 03/31/19 13:06 Freq: NEEDED Status: Active Protocol: Document 04/04/19 10:02 AB (Rec: 04/04/19 11:46 AB [id number]) Physical Therapy Treatment Exercises Exercises Heel Slides Education Education Provided Weight Bearing Status Safety M7 PT-IP Assessment and Plan Start: 03/31/19 13:06 Freq: NEEDED Status: Active Protocol: Document 04/04/19 10:02 AB (Rec: 04/04/19 11:46 AB [id number]) PT Summary Assessment and Plan Potential Rehabilitation Potential Fair Summary Impairments Pain ROM Strength Balance Coordination Sensation Tone Cognition Bed Mobility Transfers Gait Activity Tolerance Progress Towards Goals Slow Progress due to Pain Slow Progress due to Medical Issues Slow Progress due to Activity Tolerance Assessment Summary pt continues to require 2 person assist with mobility and will benefit from SNF rehab to improve strength and function. Goals Bed Mobility Goal Contact Guard Assistance Transfer Goal Contact Guard Assistance Front Wheeled Walker Gait Goal Contact Guard Assistance Front Wheel Walker Gait Distance 50 Days to Meet Goals 10 Treatment Plan Physical Therapy Treatment Plan Bed Mobility Training Transfer Training Gait Training Therapeutic Exercise Balance Retraining Post Op Education Discharge Planning Hot or Cold Pack Neuromuscular Re-ed Coordination Retraining Manual Therapy Recommendations To Nursing Amount of Assist Needed Mechanical Lift Discharge Recommendations PT Discharge Recommendations SNF Rehab
--- NOTE | 2019-04-04 10:06 | PM.PNPO.1 ---
Subjective Date Patient Seen: 04/04/19 Time Patient Seen: 10:06 Interval history: Hospital day 6, postop day 2 following left hip hardware removal and I and D with septic joint. Wound culture has grown group G strep with sensitivity pending. Anaerobic culture pending. Patient continues have significant pain to her left hip with any movement. She was up to side of bed yesterday with PT with significant discomfort. They are trying to time her pain medication with PT. She is currently in isolation based on Gram stain showing gram-positive cocci. She is currently on vancomycin and Ancef. Exam Vital Signs (past 8 hours): - 04/04/19 03:12 04/04/19 05:20 04/04/19 08:00 Temperature 97.5 F L 97.5 F L Pulse Rate 80 77 75 Respiratory Rate 19 18 Blood Pressure 150/70 H 119/55 L 147/75 H Pulse Oximetry 98 99 04/04/19 08:34 Temperature Pulse Rate 80 Respiratory Rate Blood Pressure 147/75 H Pulse Oximetry Fraction of Inspired Oxygen 21 Oxygen Delivery Method Room Air Oxygen Flow Rate 0 Narrative Exam Narrative: Alert, responsive in no acute distress lying in bed. Left leg. Two Hemovac drains are in place with small amount of drainage. Kt dressing in place without drainage or inflammation and good vacuum. Mild swelling of thigh and calf. Calf is soft and nontender. Good pulses distally. Objective Labs Result Diagrams: 04/04/19 04:06 04/04/19 04:06 Labs: Laboratory Results - last 24 hr 04/03/19 04/03/19 04/03/19 09:07 09:07 09:27 WBC RBC Hgb Hct MCV MCH MCHC RDW Plt Count Neut % (Auto) Lymph % (Auto) [place] % (Auto) Eos % (Auto) Baso % (Auto) Neut # (Auto) Lymph # (Auto) [place] # (Auto) Eos # (Auto) Baso # (Auto) ESR > 140 H Sodium Potassium Chloride Carbon Dioxide BUN Creatinine Estimated GFR BUN/Creatinine Ratio Glucose Calcium Magnesium C-Reactive Protein 24.0 H Nasal Screen MRSA (PCR) Negative for mrsa Vancomycin Trough 04/03/19 04/04/19 04/04/19 17:21 04:06 04:06 WBC 10.4 RBC 2.61 L Hgb 8.5 L 8.4 L Hct 25.4 L 25.3 L MCV 97.1 MCH 32.1 MCHC 33.1 RDW 14.2 Plt Count 395 Neut % (Auto) 71.8 Lymph % (Auto) 16.3 L [place] % (Auto) 9.8 Eos % (Auto) 1.2 L Baso % (Auto) 0.9 Neut # (Auto) 7400 H Lymph # (Auto) 1700 [place] # (Auto) 1000 H Eos # (Auto) 100 Baso # (Auto) 100 ESR Sodium 136 L Potassium 3.8 Chloride 103 Carbon Dioxide 30 BUN 12 Creatinine 0.50 L Estimated GFR > 60.0 BUN/Creatinine Ratio 24.0 H Glucose 101 Calcium 8.3 L Magnesium 2.0 C-Reactive Protein Nasal Screen MRSA (PCR) Vancomycin Trough 04/04/19 09:05 WBC RBC Hgb Hct MCV MCH MCHC RDW Plt Count Neut % (Auto) Lymph % (Auto) [place] % (Auto) Eos % (Auto) Baso % (Auto) Neut # (Auto) Lymph # (Auto) [place] # (Auto) Eos # (Auto) Baso # (Auto) ESR Sodium Potassium Chloride Carbon Dioxide BUN Creatinine Estimated GFR BUN/Creatinine Ratio Glucose Calcium Magnesium C-Reactive Protein Nasal Screen MRSA (PCR) Vancomycin Trough 9.6 L Assessment & Plan Post-op Postoperative Procedures Operation Date: 04/02/19 12:15 Actual Procedures Side Surgeon p Removal Hardware prior ORIF, Excisional Irrigation and Debridement, Left Hip Left Linda Leobardo Baer MD Plan: DC Hemovacs. Await final sensitivity on culture results. Patient is also being followed by hospitalist for medical issues. Anticipate discharge to SNF once final antibiotics are determined.
--- NOTE | 2019-04-04 11:04 | PM.PN.1 ---
Subjective Date Patient Seen: 04/04/19 Interval history: Avery Singh is a 73-year-old female with a past medical history significant for hypertension, hyperlipidemia not on statin due to intolerance, thyroid cancer s/p total thyroidectomy with secondary hypothyroidism, obesity (BMI 31), vitamin D insufficiency, and heavy alcohol consumption (no history of alcohol withdrawal, delirium, or seizures). Hospitalist medicine consulted to evaluate patient for an arrhythmia. Interval history: Telemetry overnight demonstrated sinus rhythm, HR 80s with tachycardia up to The patient is resting in bed comfortably. The patient endorses heart pound sensation last night during tachycardic episodes. She reports that this was different than her occasional heart fluttering/palpitations she gets these once a year usually when she is ?stressed.? She has many reasons for tachycardia including: Infection, pain, and anemia. Plan is to continue treating infection and control pain well. She is now growing group B strep and vancomycin will likely be discontinued. She continues to have pain especially with movement and it is well controlled with narcotics. She was started on diltiazem IR 30 mg every 6 hours which was switched to metoprolol tartrate 12.5 mg twice daily as tachycardia is likely catecholamine driven and due to infection and pain. She denies headache, sore throat, cough, palpitations, shortness of breath, chest pain, abdominal pain, nausea, vomiting, fever, chills, dysuria, diarrhea or constipation. She is voiding via Lopez catheter without difficulty. She has not yet had a bowel movement. Implemented and continue bowel regimen. She is the-[id number]-[id number] on left side and is up with assistance. Exam Vital Signs (past 8 hours): - 04/04/19 03:12 04/04/19 05:20 04/04/19 08:00 Temperature 97.5 F L 97.5 F L Pulse Rate 80 77 75 Respiratory Rate 19 18 Blood Pressure 150/70 H 119/55 L 147/75 H Pulse Oximetry 98 99 04/04/19 08:34 Temperature Pulse Rate 80 Respiratory Rate Blood Pressure 147/75 H Pulse Oximetry Fraction of Inspired Oxygen 21 Oxygen Delivery Method Nasal Cannula Oxygen Flow Rate 0 Narrative Exam Narrative: General: Elderly female sitting in bed and in no acute distress, well-developed, well-nourished, appropriately interactive. HEENT: Normocephalic, atraumatic. External ears without defect. Pupils equal, round, and reactive to light. Anicteric sclerae, moist conjunctivae, and no lid lag. Oropharynx free of erythema and cobble stoning with moist mucosa. Neck: Supple with full range of motion. No jugular venous distension. No bruits. No lymphadenopathy or thyromegaly. Cardiovascular: Regular rate and rhythm without murmurs, rubs, or gallops appreciated. Pulmonary: Clear to auscultation bilaterally without crackles, wheezes, or rhonchi. Normal respiratory effort with no use of accessory muscles. Abdomen: Soft, bowel sounds present, nontender, nondistended. No hepatosplenomegaly or masses appreciated. Extremities: No clubbing or cyanosis. Mild bipedal edema. Left hip with dressing in place with very little serosanguineous drainage. No surrounding erythema. Skin: Normal temperature, turgor, and texture; no rash, ulcers, or subcutaneous nodules appreciated. Neurological: Cranial nerves grossly intact. Psychiatric: Normal mood and affect. Alert and oriented to person, place, and time. Objective Labs Result Diagrams: 04/04/19 04:06 04/04/19 04:06 Labs: Laboratory Results - last 24 hr 04/03/19 04/03/19 04/03/19 09:07 09:27 17:21 WBC RBC Hgb 8.5 L Hct 25.4 L MCV MCH MCHC RDW Plt Count Neut % (Auto) Lymph % (Auto) [place] % (Auto) Eos % (Auto) Baso % (Auto) Neut # (Auto) Lymph # (Auto) [place] # (Auto) Eos # (Auto) Baso # (Auto) ESR > 140 H Sodium Potassium Chloride Carbon Dioxide BUN Creatinine Estimated GFR BUN/Creatinine Ratio Glucose Calcium Magnesium Nasal Screen MRSA (PCR) Negative for mrsa Vancomycin Trough 04/04/19 04/04/19 04/04/19 04:06 04:06 09:05 WBC 10.4 RBC 2.61 L Hgb 8.4 L Hct 25.3 L MCV 97.1 MCH 32.1 MCHC 33.1 RDW 14.2 Plt Count 395 Neut % (Auto) 71.8 Lymph % (Auto) 16.3 L [place] % (Auto) 9.8 Eos % (Auto) 1.2 L Baso % (Auto) 0.9 Neut # (Auto) 7400 H Lymph # (Auto) 1700 [place] # (Auto) 1000 H Eos # (Auto) 100 Baso # (Auto) 100 ESR Sodium 136 L Potassium 3.8 Chloride 103 Carbon Dioxide 30 BUN 12 Creatinine 0.50 L Estimated GFR > 60.0 BUN/Creatinine Ratio 24.0 H Glucose 101 Calcium 8.3 L Magnesium 2.0 Nasal Screen MRSA (PCR) Vancomycin Trough 9.6 L Assessment & Plan Assessment & Plan narrative: Avery Singh is a 73-year-old female with a past medical history significant for hypertension, hyperlipidemia not on statin due to intolerance, thyroid cancer s/p total thyroidectomy with secondary hypothyroidism, obesity (BMI 31), vitamin D insufficiency, and heavy alcohol consumption (no history of alcohol withdrawal, delirium, or seizures). Hospitalist medicine consulted to evaluate patient for an arrhythmia. 1. Acute on chronic palpitations, present on admission. Resolved. -Concern for cardiac arrhythmia intraoperatively and/or in the immediate postop period. Found to have infection at site of surgery and suspected infection of orthopedic hardware. -Continue to monitor closely on telemetry. Tele monitoring with PACs while in the PACU. No EKG available from the event. Prior EKG on 03/07/2019 is unremarkable. At that time patient noted to be in sinus rhythm. EKG reviewed: SR (v-rate 88), nonischemic and without pathological Q-waves, QT/QTc 356/432. -TSH within normal limits at 2.53. -Continue to monitor for electrolyte and metabolic abnormalities and replete electrolytes as needed. Goal K+ > 4.0 and Mg+ > 2.0. -Echocardiogram demonstrated normal RV and LV size, wall thickness and function with EF 60-65%. Both atria normal in size. Diastolic parameters could not be assessed. No significant valvular heart disease. The patient was in normal sinus rhythm during the exam. -Risk stratified: Hemoglobin A1C 5.1% indicative of tight glycemic control and fasting lipid panel demonstrated: Total cholesterol 130, triglycerides 84, LDL 92, and HDL low at 21. -Received diltiazem 30 mg PO x1. Switched diltiazem to metoprolol tartrate 12.5 mg twice daily as her tachycardia is likely catecholamine mediated due to infection and pain. Amlodipine has been discontinued for now. May restart if patient is hypertensive. -Treat underlying infection and control pain. 2. Failed left ORIF with acute GBS infection, present on admission. Active. -Patient was found to have large hematoma in the subcutaneous tissues which tracked down deep to the fascia. In addition to the hematoma, purulence fluid was noted. A Gram stain and culture were obtained, which revealed multiple WBCs, as well as, gram-positive cocci. Clinical appearance of deep infection was noted. Given above findings, internal fixation was removed and the wound was debrided. -Continue pain and postoperative management per orthopedic surgery. Continue a 4-6 week course of antibiotic therapy at discretion of ortho. Agree with cefazolin and recommended discontinuation of vancomycin as patient does not have MRSA infection or colonization. -Plan for revision of total hip arthroplasty after successful treatment and resolution of the infection. Patient is non weight-bearing of left lower extremity per Ortho. -Continue PT and OT evaluation and treatment. 3. Acute hypomagnesemia, present on admission. Resolved. -Initial magnesium level 1.5. Received magnesium sulfate 2 g IV x 2. Magnesium now 2.0. -Continue to monitor magnesium level closely and replete as necessary. 4. Subacute hyponatremia, present on admission. Resolving. -Current sodium level 136. Hyponatremia since at least 03/07/2019. Noted to have a normal sodium level in October of 2018. -Potentialy multifactorial and suspected to have multitude of contributing factors including: Acute infection, hypovolemia secondary to recent surgery with insensible losses and decreased PO intake, hydrochlorothiazide use, and excessive alcohol consumption. -Ordered serum osmolality, pending -Discontinued HCTZ indefinitely. This is not an ideal medication for this patient, given history of lifelong and potentially excessive alcohol use and a habit of intermittent fasting. 4. Acute blood loss and iron deficiency anemia, present on admission. Stable. -Secondary to acute blood loss associated with recent surgery for left total hip revision and possibly dilutional. Patient has also been taking 650 mg of ASA daily that was stopped 1 week ago by report and has a known longstanding history of excessive alcohol consumption. -Initial hemoglobin 11.1. Post-op hemoglobin 9.7. Now 8.4 and stable. Continue to monitor vital signs closely and signs of bleeding. Transfusion goal <7.0. -Iron panel demonstrated iron deficiency anemia likely related to acute blood loss. Recommend holding off on starting iron supplementation due to acute infection as above. -Continue to monitor H&H closely. 5. Excessive consumption of alcohol, chronic, present on admission. Stable. -Continue vitamin and thiamine. -Monitor for signs and symptoms of alcohol withdraw. 6. Vitamin-D insufficiency, subacute, present on admission, active -Vitamin D3 level 23.3 ng/ml (03/09/2019). Continue home vitamin-D3 supplementation 2000 units daily. Thank you for consulting our services. We will continue to follow along with you.
--- NOTE | 2019-04-04 13:30 | PT.IPTN ---
Current Diagnoses Breakdown (mechanical) of internal fixation device of left femur, initial encounter (03/30/19) Personal history of (healed) traumatic fracture (03/30/19) Presence of other bone and tendon implants (03/30/19) Surgery Performed Operation Date: 04/02/19 12:15 Actual Procedures p Removal Hardware prior ORIF, Excisional Irrigation and Debridement, Left Hip(Left) - Linda Baer MD Physical Therapy Treatment Note M2 PT-IP Current Condition Start: 03/31/19 13:06 Freq: NEEDED Status: Active Protocol: Document 04/03/19 15:00 AB (Rec: 04/03/19 15:53 AB [id number]) Physical Therapy Current Condition Current Condition Evaluation Date 04/03/19 Treatment Diagnosis s/pL hip removal of int fixation & excisional I&D; diff in walking Onset Date 03/30/19 Weight Bearing Status Weight Bearing Status Non-Weight Bearing Allowed Weight Bearing Amount (enter % LLE: NWB or #) (%) M3 PT-IP Subjective Start: 03/31/19 13:06 Freq: NEEDED Status: Active Protocol: Document 04/04/19 13:30 AB (Rec: 04/04/19 17:33 AB [id number]) Subjective Physical Therapy Visit Type Type Treatment Note Visit Start Time 13:30 Visit Stop Time 14:10 Total Visit Minutes 40 Number of MEDIUM CYCLE SALESPERSON Visits 0 Physical Therapy Visit Comments Patient Comments pt agreed to do PT Therapy Pain Assessment Pain When Pain Assessed At Rest Pain Present Pain Present Pain Reported Location Left Hip Intensity 6 Scale Used increases with mobility Pain Behaviors Guarding Holding Area Pain Management Techniques Modification of Treatment Re-positioning Timing of Activity with Medications M4 PT-IP Mobility and Gait Start: 03/31/19 13:06 Freq: NEEDED Status: Active Protocol: Document 04/04/19 13:30 AB (Rec: 04/04/19 17:33 AB [id number]) PT-Bed Mobility Assessment Supine to Sit Supine to Sit Maximum Assistance 1 Person Assistance Head of Bed Elevated Sit to Supine Sit to Supine Maximum Assistance 2 Person Assistance Scooting Scooting to Edge of Bed Maximum Assistance PT-Transfer Assessment Sit to and From Stand Sit to and from Stand Maximum Assistance 2 Person Assistance Use of Upper Extremities Equipment Transfer Assistive Device Gait Belt Front Wheeled Walker Orthotic/Prosthetic Devices or Brace: No Comments Mobility Comments pt completed supine to sit with HOB elevated max A and max cues. pt sat on EOB SBA. pt completed sit to stand from EOB max A x 2 and max cues. required assistance to maintain NWB on LLE. pt tolerated ~ 15 sec of standing and has to sit back down. pt refused to transfer into the chair but sat on the EOB while doing ADLs. pt completed sit to stand again max A x 2 and max cues. continues to require max A to maintain NWB on LLE. pt completed lateral side stepping towards HOB using FWW max A x 2 and max cues. pt completed sit to supine max A x 2 and max cues. positioned pt on the bed. call light and table placed within reach. M5 PT-IP Objective Assessments Start: 03/31/19 13:06 Freq: NEEDED Status: Active Protocol: Document 04/03/19 15:00 AB (Rec: 04/03/19 15:50 AB [id number]) Orientation Orientation/Cognition Level of Alertness Alert Safety Awareness Decreased Safety Awareness Memory Description Short Term Impaired Gross Range of Motion Lower Extremity ROM Assessment Left Impaired Impairments L hip and knee tightness noted Strength Lower Extremity Strength Assessment Bilaterally Impaired Comments Strength Comments RLE: 4-/5 LLE: 3-/5 M6 PT-IP Treatment Start: 03/31/19 13:06 Freq: NEEDED Status: Active Protocol: Document 04/04/19 13:30 AB (Rec: 04/04/19 17:33 AB [id number]) Physical Therapy Treatment Education Education Provided Weight Bearing Status Safety M7 PT-IP Assessment and Plan Start: 03/31/19 13:06 Freq: NEEDED Status: Active Protocol: Document 04/04/19 13:30 AB (Rec: 04/04/19 17:33 AB [id number]) PT Summary Assessment and Plan Potential Rehabilitation Potential Fair Summary Impairments Pain ROM Strength Balance Coordination Sensation Tone Cognition Bed Mobility Transfers Gait Activity Tolerance Progress Towards Goals Slow Progress due to Pain Slow Progress due to Medical Issues Slow Progress due to Activity Tolerance Assessment Summary pt continues to require 2 person assist with mobility and will benefit from SNF rehab to improve strength, activity tolerance and mobility. Goals Bed Mobility Goal Contact Guard Assistance Transfer Goal Contact Guard Assistance Front Wheeled Walker Gait Goal Contact Guard Assistance Front Wheel Walker Gait Distance 50 Days to Meet Goals 10 Frequency of Treatment Frequency Of Treatment Twice a Day Treatment Plan Physical Therapy Treatment Plan Bed Mobility Training Transfer Training Gait Training Therapeutic Exercise Balance Retraining Post Op Education Discharge Planning Hot or Cold Pack Neuromuscular Re-ed Coordination Retraining Manual Therapy Recommendations To Nursing Amount of Assist Needed Mechanical Lift Discharge Recommendations PT Discharge Recommendations SNF Rehab
[2019-04-04] MEDS: METOPROLOL IR 25 MG TABLET 12.5 MG PO (14:06)
[2019-04-04] MEDS: VANCOMYCIN 1,500 MG/300 ML FROZ.PIGGY 200 MG IV (14:08)
--- NOTE | 2019-04-04 14:08 | OT.IP.TRT ---
Current Diagnoses Breakdown (mechanical) of internal fixation device of left femur, initial encounter (03/30/19) Personal history of (healed) traumatic fracture (03/30/19) Presence of other bone and tendon implants (03/30/19) Surgery Performed Operation Date: 04/02/19 12:15 Actual Procedures p Removal Hardware prior ORIF, Excisional Irrigation and Debridement, Left Hip(Left) - Linda Baer MD Occupational Therapy Treatment Note M2 OT-IP Current Condition Start: 04/03/19 15:44 Freq: Status: Active Protocol: Document 04/03/19 15:36 PJM (Rec: 04/03/19 16:03 PJM [id number]) Occupational Therapy Current Condition Current Condition Evaluation Date 04/03/19 Treatment Diagnosis decr'd self care, mobility s/p hardware failure L hip ORIF w /infection Diagnosis Onset Date 04/02/19 Post Operative Precautions Other Precautions contact; 2 hip drains+SANAM drain Weight Bearing Status Weight Bearing Status Non-Weight Bearing Allowed Weight Bearing Amount (enter % LLE or #) (%) M3 OT- IP Subjective and Pain Start: 04/03/19 15:44 Freq: Status: Active Protocol: Document 04/04/19 14:08 PJM (Rec: 04/04/19 16:48 PJM [id number]) OT- Subjective Occupational Therapy Visit Type Type Treatment Note Visit Start Time 13:30 Visit Stop Time 14:08 Total Visit Minutes 38 Notes cotx with P.T. for mobility for safety Occupational Therapy Visit Comments Patient/Caregiver Goals to get rid of infection as needed for hip surgery OT Pain Assessment Pain When Pain Assessed After Treatment Pain Present Pain Present Pain Reported Location Left Hip Intensity 7 Description Aching Acute Pain Behaviors Facial Grimacing Guarding Wincing Management Techniques Distraction Re-positioning Timing of Activity with Medications M4 OT- IP ADL's Start: 04/03/19 15:44 Freq: Status: Active Protocol: Document 04/04/19 14:08 PJM (Rec: 04/04/19 16:48 PJM [id number]) OT ADL-Grooming General Evaluation Grooming Ability Minimal Assistance Comments OT Grooming Comments pt provided with shampoo cap while seated EOB and needed min assist to apply it, SBA to remove cap and towel dry hair OT ADL-Dressing General Eval Lower Body Dressing Ability Total Assistance Areas Needing Assistance Socks OT ADL-Toileting General Evaluation Toileting Ability Total Assistance Areas Needing Assistance Empty Catheter or Colostomy Comments OT Toileting Comments caraballo still in place M5 OT- IP IADL's Start: 04/03/19 15:44 Freq: Status: Active Protocol: Document 04/03/19 15:36 PJM (Rec: 04/03/19 16:03 PJ [id number]) OT-Instrumental Activities of Daily Living Deficits IADL Deficits Identified Deficits Home Safety Awareness Awareness of Need for Assistance at Home Good Awareness Ability to Problem Solve Emergency Able to Problem Solve Situations Medication Management Medication Management No Deficits Identified Money Management Money Management No Deficits Identified Meal Preparation Meal Preparation Caregiver Provides Assist Meal Preparation Comments pt plans to have friend stay with her overnight to assist with evening meal and breakfast Organ Tuner Electronic Organ Tuner Electronic Caregiver Provides Assist Organ Tuner Electronic Comments pt will need assist with all life insurance salesperson Driving Driving Caregiver Provides Assist Driving Comments pt will need assist until mobility improves M6 OT- IP Functional Cognition Start: 04/03/19 15:44 Freq: Status: Active Protocol: Document 04/04/19 14:08 PJM (Rec: 04/04/19 16:48 [facility] [id number]) Cognitive Factors Limiting Selfcare Function Cognitive Ability Level of Alertness Alert Patient Orientation Name Age Birthday Month Date Year Day of Week Place Situation Attention Span Ability Capable of Focused Attention Capable of Sustained Attention Ability to Follow Commands Able to Follow One Step Commands Memory Description Short Term Impaired Problem Solving Ability Unable to Identify Errors Needs Assist to Identify Solutions Cognitive Comments Cognitive Assessment Comments Pt needs repetition of instructions for hand placement and technique for mobility and standing with FWW . M7 OT- IP Mobility and Balance Start: 04/03/19 15:44 Freq: Status: Active Protocol: Document 04/04/19 14:08 PJM (Rec: 04/04/19 16:48 [facility] [id number]) OT- Bed Mobility Assessment Supine to Sit Supine to Sit Assist Moderate Assistance 1 Person Assistance Sit to Supine Sit to Supine Assist Minimal Assistance 2 Person Assistance Scooting Scooting to Edge of Bed Moderate Assistance 1 Person Assistance OT-Transfer Assessment Sit to and From Stand Sit to and from Stand Moderate Assistance 2 Person Assistance Comments Mobility Comments Pt stood by EOB x2, worked on pivoting on R foot with FWW along edge of bed. Pt declined up to chair today but agreed to try it tomorrow. OT- Balance Assessment Sitting Balance and Reactions Static Sitting Balance Ability Good Dynamic Sitting Balance Ability Fair Standing Balance and Reactions Static Standing Balance Ability Fair Dynamic Standing Balance Ability Fair M8 OT- IP Objective Assessments Start: 04/03/19 15:44 Freq: Status: Active Protocol: Document 04/03/19 15:36 PJM (Rec: 04/03/19 16:03 PJM [id number]) OT Gross Range of Motion Upper Extremity Range of Motion Assessment Within Functional Limits OT Strength Upper Extremity Strength Assessment Within Functional Limits Hand Field Crop Technical Officer Strength Hand Dominance Right OT- Coordination Assessment Comments Coordination Comments BUE WFL OT-Muscle Tone Assessment Muscle Tone WNL Yes OT Sensation Assessment Comments Summary Comments BUE WNL per pt M9 OT- IP Assessment and Plan Start: 04/03/19 15:44 Freq: Status: Active Protocol: Document 04/04/19 14:08 PJM (Rec: 04/04/19 16:48 PJM [id number]) OT Summary Assessment and Plan Summary OT Impairments Pain Functional Mobility Grooming Dressing Toileting Bathing Toilet Transfers Shower Transfers Progress Towards Goals Slow Progress due to Pain Assessment Summary Pt demonstrating improved bed mobility and tolerated 2 trials for sit to stand and some pivoting on R foot along edge of bed today. Pt needs encouragement to participate due to high pain levels, and encouragement to increase independence in seated self care tasks. Pt will need SNF at d/c for IV antibiotics then will have L GIA once infection clears. Goals Grooming Goal Independent Dressing Goal Minimal Assistance Toileting Goal Moderate Assistance Bathing Goal Minimal Assistance Toilet Transfer Goal Moderate Assistance Bedside Commode Patient/Caregiver Education Goal Demonstrate Post-Op Precautions Demonstrate Energy Conservation and Pacing OT-Other Goals Grooming to be done seated in chair after set up. Bathing goal is for seated upper body sponge bath Days to Meet Goals 5 Frequency of Treatment Frequency Of Treatment Once a Day Treatment Plan OT Treatment Plan ADL Training Functional Mobility Patient/Family Education Discharge Planning Discharge Recommendations OT Discharge Recommendations SNF Rehab Home Equipment Needs to be determined in next rehab setting pending progress
--- NOTE | 2019-04-04 15:53 | DIET.PN ---
73y F c closed hip fx Med Hx: essential HTN, hypothyroid s/p thyroidectomy, hyperlipidemia Assessment: Pt PO intake has been low last 5 d in hospital (0-50%). Pt reports decreased appetite likely d/t infection, appetite increasing c abx. Now reports meal timing is off d/t PT appts or too much px to eat. Pt gained 10# in September, lost 7# since then by intermittent fasting (16h fast daily). Eats 2 meals per day: L: 2 eggs, 12oz milk, 1/4c hashbrowns. D: large salad c vinaigrette, cheese and meat c glass wine. Labs: Creatinine 0.5 (L); B-163 Nutrition Dx: Inadequate PRO intake r/t acute injury (closed hip fx) and infection aeb 0-50% PO intake over past 5 d, pt reports reduced appetite. Intervention: Recc pt eat PRO with each meal tray, continue drinking milk. ONS Ensure as PM snack. Monitoring/Evaluation: RD will follow I&Os and f/u 04/08
[2019-04-04] MEDS: CEFTRIAXONE 2 GM/50 ML FROZ.PIGGY IV (18:02)
--- NOTE | 2019-04-04 21:58 | PC.NURSE ---
Jennifer shift note: Offered prune juice for BM, patient states Miralax administered during day shift. Declined prune juice, states will take in the am with breakfast and Miralax.
[2019-04-05] VITALS (11 sets, daily range): BP systolic 115–147; BP diastolic 44–85; PULSE 74–86; RESP 16–19; TEMP 36.5–36.9; O2SAT 79–100
[2019-04-05] MEDS: HYDROCODONE/ACET 5/325 TABLET 2 TAB PO ×6 (00:41→20:53)
--- NOTE | 2019-04-05 01:08 | PC.NURSE ---
Addendum entered by Malinda Thomas R.N. 04/05/19 05:34: Refused to turn at 0300 but now agreeable to small shift in body to change pressure. States she is having no pain but still wanting to take 1 Vicodin to keep pain controlled. Original Note: Patient is oriented but drowsy having be awakened as per her request for pain medication. Breath sounds CTA but oximeter alarming with sat of 79% so started on oxygen and now titrated to 1L/min with sat of 96% (was asleep when sat dropped); also noted sat to drop when repositioning. HRR with rate in 80's; last telemetry reading was SR. Denies nausea. BT present and abdomen is soft; passing flatus but still has not had a BM since 03/29 (patient states she will when she gets up in the morning and declines bowel meds). Needs encouragement to reposition as is reluctant to move; states I'm not going to get a bedsore. Will assist and allow minor adjustments. States pain is 8/10 with movement and is medicated with Vicodin but declines ice pack. Hemovac site dressing intact with serosanguinous drainage. SANAM dressings intact with no new drainage noted. Still with edema in left LE but feeling softer in thigh/hip area tonight. CMS is intact. Refuses SCD's tonight so reminded of purpose and need to ankle wave whenever awake if not in use. Fall risk score is high and bed alarm is activated. No longer on isolation as final culture showing Group G strep.
[2019-04-05] MEDS: LEVOTHYROXINE 75 MCG TABLET PO (05:25)
[2019-04-05 05:39] LABS: Hematocrit 23.3 % (36-46); Hemoglobin 7.6 g/dL (12.0-16.0); Mean Corpuscular HGB Conc 32.8 % (30-36); Mean Corpuscular Hemoglobin 31.6 PG (26-34); Mean Corpuscular Volume 96.1 fL (80-100); Platelet Count 411 X10^3/uL (150-400); Red Blood Cell Count 2.42 X10^6/uL (4.0-5.2); Red Cell Distribution Width 14.4 % (11.6-14.8); White Blood Cell Count 11.7 X10^3/uL (4.5-11.0)
[2019-04-05 05:46] LABS: Blood Urea Nitrogen 12 mg/dL (7-17); Calcium 8.5 mg/dL (8.4-10.2); Carbon Dioxide 29 mmol/L (22-32); Chloride 104 mmol/L (98-107); Estimated Glomerular Filt Rate > 60.0 mL/min (>60); Glucose 89 mg/dL (80-110); HEMOLYSIS < 15 (0-50); Magnesium 1.9 mg/dL (1.6-2.3); Potassium 4.4 mmol/L (3.4-5.1); Sodium 135 mmol/L (137-145)
[2019-04-05 05:54] LABS: Add Manual Diff / Slide Review YES
[2019-04-05 06:35] LABS: Neutrophils Absolute Manual 6669 /uL (3000-5900); RBC Morphology Normal Morphology; Total Cells Counted 100
--- NOTE | 2019-04-05 07:40 | PM.PN.1 ---
Subjective Date Patient Seen: 04/05/19 Interval history: Avery Singh is a 73-year-old female with a past medical history significant for hypertension, hyperlipidemia not on statin due to intolerance, thyroid cancer s/p total thyroidectomy with secondary hypothyroidism, obesity (BMI 31), vitamin D insufficiency, and heavy alcohol consumption (no history of alcohol withdrawal, delirium, or seizures). Hospitalist medicine consulted to evaluate patient for an arrhythmia. Interval history: Telemetry overnight demonstrated sinus rhythm, HR 70-80s without ectopy. The patient is resting in bed comfortably. She continues to endorse pain with movement that is controlled with narcotics and she feels is overall improving. She denies headache, sore throat, cough, palpitations, shortness of breath, chest pain, abdominal pain, nausea, vomiting, fever, chills, dysuria, diarrhea or constipation. She is voiding via Lopez catheter without difficulty. She has not yet had a bowel movement. Implemented and will continue bowel regimen. She is [id number] on left side and is up with assistance. Exam Vital Signs (past 8 hours): - 04/05/19 00:38 04/05/19 00:45 04/05/19 05:30 Temperature 97.7 F 97.8 F Pulse Rate 82 81 Respiratory Rate 19 18 Blood Pressure 129/85 135/66 Pulse Oximetry 79 L 99 98 Fraction of Inspired Oxygen 21 Oxygen Delivery Method Nasal Cannula Oxygen Flow Rate 1 Narrative Exam Narrative: General: Elderly female sitting in bed and in no acute distress, well-developed, well-nourished, appropriately interactive. HEENT: Normocephalic, atraumatic. External ears without defect. Pupils equal, round, and reactive to light. Anicteric and pale sclerae, moist conjunctivae, and no lid lag. Oropharynx free of erythema and cobble stoning with moist mucosa. Neck: Supple with full range of motion. No jugular venous distension. No lymphadenopathy or thyromegaly. Cardiovascular: Regular rate and rhythm without murmurs, rubs, or gallops appreciated. Pulmonary: Clear to auscultation bilaterally without crackles, wheezes, or rhonchi. Normal respiratory effort with no use of accessory muscles. Abdomen: Soft, bowel sounds present, nontender, nondistended. No hepatosplenomegaly or masses appreciated. Extremities: No clubbing or cyanosis. Mild bipedal edema. Left hip with dressing in place C/D/I with very mild edema. No surrounding erythema. Surgical wound appears to be healing. Skin: Normal temperature, turgor, and texture; no rash, ulcers, or subcutaneous nodules appreciated. Neurological: Cranial nerves grossly intact. Psychiatric: Normal mood and affect. Alert and oriented to person, place, and time. Objective Labs Result Diagrams: 04/05/19 05:23 04/05/19 05:23 Labs: Laboratory Results - last 24 hr 04/04/19 04/05/19 04/05/19 09:05 05:23 05:23 WBC 11.7 H RBC 2.42 L Hgb 7.6 L Hct 23.3 L MCV 96.1 MCH 31.6 MCHC 32.8 RDW 14.4 Plt Count 411 H Neut % (Auto) Not Reportable Lymph % (Auto) Not Reportable [place] % (Auto) Not Reportable Eos % (Auto) Not Reportable Baso % (Auto) Not Reportable Lymph # (Auto) Not Reportable [place] # (Auto) Not Reportable Baso # (Auto) Not Reportable Total Counted 100 Seg Neutrophils % 55.0 Band Neutrophils % 2.0 L Lymphocytes % (Manual) 29.0 Monocytes % (Manual) 10.0 Eosinophils % (Manual) 3.0 Metamyelocytes % 1.0 H Neutrophils # (Manual) 6669 H RBC Morphology Normal morphology Sodium 135 L Potassium 4.4 Chloride 104 Carbon Dioxide 29 BUN 12 Creatinine 0.50 L Estimated GFR > 60.0 BUN/Creatinine Ratio 24.0 H Glucose 89 Calcium 8.5 Magnesium 1.9 Vancomycin Trough 9.6 L Assessment & Plan Assessment & Plan narrative: Avery Singh is a 73-year-old female with a past medical history significant for hypertension, hyperlipidemia not on statin due to intolerance, thyroid cancer s/p total thyroidectomy with secondary hypothyroidism, obesity (BMI 31), vitamin D insufficiency, and heavy alcohol consumption (no history of alcohol withdrawal, delirium, or seizures). Hospitalist medicine consulted to evaluate patient for an arrhythmia. 1. Acute on chronic palpitations, present on admission. Resolved. -Concern for cardiac arrhythmia intraoperatively and/or in the immediate postop period. Found to have infection at site of surgery and suspected infection of orthopedic hardware. -Tele monitoring in PACU with PACs and concern for arrythmia. No EKG available from the event. Prior EKG on 03/07/2019 is unremarkable. At that time patient noted to be in sinus rhythm. EKG reviewed: SR (v-rate 88), nonischemic and without pathological Q-waves, QT/QTc 356/432. -TSH within normal limits at 2.53. -Echocardiogram demonstrated normal RV and LV size, wall thickness and function with EF 60-65%. Both atria normal in size. Diastolic parameters could not be assessed. No significant valvular heart disease. The patient was in normal sinus rhythm during the exam. -Risk stratified: Hemoglobin A1C 5.1% indicative of tight glycemic control and fasting lipid panel demonstrated: Total cholesterol 130, triglycerides 84, LDL 92, and HDL low at 21. -Continue to monitor closely on telemetry. Telemetry overnight on 04/03 demonstrated sinus tachycardia likely multifactorial and mediated by infection, pain, and anemia. Received diltiazem 30 mg PO x1. Switched diltiazem to metoprolol tartrate 12.5 mg twice daily as her tachycardia is likely catecholamine mediated due to infection and pain. Amlodipine was held initially then restarted for hypertension. -Continue to monitor for electrolyte and metabolic abnormalities and replete electrolytes as needed. Goal K+ > 4.0 and Mg+ > 2.0. -Treat underlying infection and control pain. 2. Failed left ORIF with acute GBS infection, present on admission. Active. -Patient was found to have large hematoma in the subcutaneous tissues which tracked down deep to the fascia. In addition to the hematoma, purulence fluid was noted. A Gram stain and culture were obtained. Clinical appearance of deep infection was noted. Given above findings, internal fixation was removed and the wound was debrided. -Wound culture grew group B strep. -Continue pain and postoperative management per orthopedic surgery. Continue a 4-6 week course of antibiotic therapy at discretion of ortho. Agree with ceftriaxone to cover group G strep. However, with WBC elevation and bandemia but decreasing PCT and patient clinically improving consider watchful waiting for a 24 hours and if infectious marker continuing to rise consider switching ceftriaxone to Unasyn to cover more broadly including anaerobes. -Plan for revision of total hip arthroplasty after successful treatment and resolution of the infection. Patient is non weight-bearing of left lower extremity per Ortho. -Continue PT and OT evaluation and treatment. 3. Acute blood loss and iron deficiency anemia, present on admission. Stable. -Secondary to acute blood loss associated with recent surgery for left total hip revision and possibly dilutional. Patient has also been taking 650 mg of ASA daily that was stopped 1 week ago by report and has a known longstanding history of excessive alcohol consumption. -Initial hemoglobin 11.1. Post-op hemoglobin 9.7. Hgb stable but trending down 7.6 today. Continue to monitor vital signs closely and signs of bleeding. Transfusion goal <7.0 but could consider <7.5 and will defer to ortho. -Iron panel demonstrated iron deficiency anemia likely related to acute blood loss. Recommend holding off on starting iron supplementation due to acute infection as above. -Continue to monitor H&H closely. 4. Subacute hyponatremia, present on admission. Stable. -Current sodium level 136. Hyponatremia since at least 03/07/2019. Noted to have a normal sodium level in October of 2018. -Potentialy multifactorial and suspected to have multitude of contributing factors including: Acute infection, hypovolemia secondary to recent surgery with insensible losses and decreased PO intake, hydrochlorothiazide use, and excessive alcohol consumption. -Ordered serum osmolality, pending -Discontinued HCTZ indefinitely. This is not an ideal medication for this patient, given history of lifelong and potentially excessive alcohol use and a habit of intermittent fasting. 5. Acute hypomagnesemia, present on admission. Resolved. -Initial magnesium level 1.5. Received magnesium sulfate 2 g IV x 2. Magnesium now 2.0. -Continue to monitor magnesium level closely and replete as necessary. 6. Excessive consumption of alcohol, chronic, present on admission. Stable. -Continue vitamin and thiamine. -Monitor for signs and symptoms of alcohol withdraw. 7. Vitamin-D insufficiency, subacute, present on admission, active -Vitamin D3 level 23.3 ng/ml (03/09/2019). Continue home vitamin-D3 supplementation 2000 units daily. Thank you for consulting our services. We will sign off at this time but feel free to contact us with any further needs.
[2019-04-05 08:49] LABS: Procalcitonin 0.26 ng/mL (<0.5)
[2019-04-05] MEDS: AMLODIPINE 5 MG TABLET PO (09:00)
[2019-04-05] MEDS: SODIUM CHLORIDE 0.9% FLUSH 10 ML IV ×2 (09:03→20:56)
[2019-04-05] MEDS: ASPIRIN EC 81 MG TABLET PO ×2 (09:04→20:54)
[2019-04-05] MEDS: THIAMINE 100 MG TABLET PO (09:04)
[2019-04-05] MEDS: CHOLECALCIFEROL (VITAMIN D3) 1,000 UNIT TABLET 2000 UNIT PO (09:05)
[2019-04-05] MEDS: DOCUSATE 100 MG CAPSULE PO ×2 (09:05→20:54)
[2019-04-05] MEDS: ASCORBIC ACID 500 MG TABLET PO ×2 (09:05→20:55)
[2019-04-05] MEDS: PRENATAL VIT,CALC/IRON/FOLIC 1 TABLET 1 TAB PO (09:06)
[2019-04-05] MEDS: LISINOPRIL 20 MG TABLET PO (09:07)
[2019-04-05] MEDS: METOPROLOL IR 25 MG TABLET 12.5 MG PO ×2 (09:07→20:54)
--- NOTE | 2019-04-05 09:54 | PM.PNPO.1 ---
Subjective Date Patient Seen: 04/05/19 Time Patient Seen: 09:54 Interval history: Hospital day 7, postop day 3 following left hip hardware removal and I and D of septic joint. Patient states her hip pain is improved over the last 24 hours. Still very limited on being out of bed. Still has Lopez catheter in place which she would like to leave in for a little longer. Left hip culture notes group G Streptococcus which was sensitive to all except clindamycin. Vancomycin was stopped and patient is on Ancef 2 g q.8h. Her white count has increased today to 11.7. H&H decreased 7.6/23.3 8.4/25.3. Dr. Higginbotham, hospitalist, has been following patient. She had recommended adding Unasyn or Flagyl as a possible additional treatment. Also needs to further follow with her lab work. Plan is for patient to ventrally go back to [facility]. Exam Vital Signs (past 8 hours): - 04/05/19 05:30 04/05/19 08:15 04/05/19 08:50 Temperature 97.8 F 98.1 F Pulse Rate 81 74 Respiratory Rate 18 16 Blood Pressure 135/66 136/64 Pulse Oximetry 98 99 98 Fraction of Inspired Oxygen 21 Oxygen Delivery Method Nasal Cannula Oxygen Flow Rate 0 Narrative Exam Narrative: Alert, oriented no acute distress lying in bed. Left leg. Dressing to Hemovac site has some serosanguineous drainage. Kt dressing in place which is dry and good vacuum. No calf pain or swelling. Pulses symmetrical. Objective Labs Result Diagrams: 04/05/19 05:23 04/05/19 05:23 Labs: Laboratory Results - last 24 hr 04/05/19 04/05/19 04/05/19 05:23 05:23 05:23 WBC 11.7 H RBC 2.42 L Hgb 7.6 L Hct 23.3 L MCV 96.1 MCH 31.6 MCHC 32.8 RDW 14.4 Plt Count 411 H Neut % (Auto) Not Reportable Lymph % (Auto) Not Reportable [place] % (Auto) Not Reportable Eos % (Auto) Not Reportable Baso % (Auto) Not Reportable Lymph # (Auto) Not Reportable [place] # (Auto) Not Reportable Baso # (Auto) Not Reportable Total Counted 100 Seg Neutrophils % 55.0 Band Neutrophils % 2.0 L Lymphocytes % (Manual) 29.0 Monocytes % (Manual) 10.0 Eosinophils % (Manual) 3.0 Metamyelocytes % 1.0 H Neutrophils # (Manual) 6669 H RBC Morphology Normal morphology Sodium 135 L Potassium 4.4 Chloride 104 Carbon Dioxide 29 BUN 12 Creatinine 0.50 L Estimated GFR > 60.0 BUN/Creatinine Ratio 24.0 H Glucose 89 Calcium 8.5 Magnesium 1.9 Procalcitonin 0.26 Assessment & Plan Post-op Postoperative Procedures Operation Date: 04/02/19 12:15 Actual Procedures Side Surgeon p Removal Hardware prior ORIF, Excisional Irrigation and Debridement, Left Hip Left Linda A MD [place] Plan: Will continue with [facility] at this time. Will plan to have Dr. Baer talk with Dr. Higginbotham about further treatment options and followup. I will recheck CBC in the morning. Will keep Lopez in today as patient is very limited activity and transfer.
--- NOTE | 2019-04-05 10:00 | P.PN_ITS ---
Subjective Date Patient Seen: 04/05/19 Time Patient Seen: 09:54 Interval history: Hospital day 7, postop day 3 following left hip hardware removal and I and D of septic joint. Patient states her hip pain is improved over the last 24 hours. Still very limited on being out of bed. Still has Lopez catheter in place which she would like to leave in for a little longer. Left hip culture notes group G Streptococcus which was sensitive to all except clindamycin. Vancomycin was stopped and patient is on Ancef 2 g q.8h. Her white count has increased today to 11.7. H&H decreased 7.6/23.3 8.4/25.3. Dr. Higginbotham, hospitalist, has been following patient. She had recommended adding Unasyn or Flagyl as a possible additional treatment. Also needs to further follow with her lab work. Plan is for patient to ventrally go back to [facility]. Exam Vital Signs (past 8 hours): - 04/05/19 05:30 04/05/19 08:15 04/05/19 08:50 Temperature 97.8 F 98.1 F Pulse Rate 81 74 Respiratory Rate 18 16 Blood Pressure 135/66 136/64 Pulse Oximetry 98 99 98 Fraction of Inspired Oxygen 21 Oxygen Delivery Method Nasal Cannula Oxygen Flow Rate 0 Narrative Exam Narrative: Alert, oriented no acute distress lying in bed. Left leg. Dr meyer to Hemova site has some serosanguineous drainage. Kt dressing in place which is dry and good vacuum. No calf pain or swelling. Pulses symmetrical. Objective Labs Result Diagrams: 04/05/19 05:23 04/05/19 05:23 Labs: Laboratory Results - last 24 hr 04/05/19 04/05/19 04/05/19 05:23 05:23 05:23 WBC 11.7 H RBC 2.42 L Hgb 7.6 L Hct 23.3 L MCV 96.1 MCH 31.6 MCHC 32.8 RDW 14.4 Plt Count 411 H Neut % (Auto) Not Reportable Lymph % (Auto) Not Reportable [place] % (Auto) Not Reportable Eos % (Auto) Not Reportable Baso % (Auto) Not Reportable Lymph # (Auto) Not Reportable [place] # (Auto) Not Reportable Baso # (Auto) Not Reportable Total Counted 100 Seg Neutrophils % 55.0 Band Neutrophils % 2.0 L Lymphocytes % (Manual) 29.0 Monocytes % (Manual) 10.0 Eosinophils % (Manual) 3.0 Metamyelocytes % 1.0 H Neutrophils # (Manual) 6669 H RBC Morphology Normal morphology Sodium 135 L Potassium 4.4 Chloride 104 Carbon Dioxide 29 BUN 12 Creatinine 0.50 L Estimated GFR > 60.0 BUN/Creatinine Ratio 24.0 H Glucose 89 Calcium 8.5 Magnesium 1.9 Procalcitonin 0.26 Assessment & Plan Post-op Postoperative Procedures Operation Date: 04/02/19 12:15 Actual Procedures Side Surgeon p Removal Hardware prior ORIF, Excisional Irrigation and Debridement, Left Hip Left Linda Leobardo Baer MD Plan: Will continue with [facility] at this time. Will plan to have Dr. Baer talk with Dr. Higginbotham about further treatment options and followup. I will recheck CBC in the morning. Will keep Lopez in today as patient is very limited activity and transfer.
--- NOTE | 2019-04-05 10:33 | CM.DPC ---
Addendum entered by Aure Gomez LPN 04/05/19 16:37: Keith العراقي spoke with Dr. Baer with the POC and Dr. Higginbotham's recommendations. He reported back that Dr. Baer wished to proceed with the d/c to [facility] today and that Dr. Higginbotham info was noted only and he was to proceed with the d/c plan that Dr. Baer had in place. Pt has had no BM for 7 days (MOM is ordered today) and only had the co tx yesterday with PT/OT. She is c/o severe pain when she moves. Her caraballo was taken out and she has been incontinent x 2. She states she does not feel at all ready for a d/c today. Contacted [facility], on for De[place]. She will put in an auth for the snf stay and this will need to be updated with the weekend [place] crew. She states it does not sound like pt is medically ready for d/c but that will be up to the IH team. [facility] is updated. She is encouraged to discuss the POC with her physican and DNS team but confirms that pt is not appropriate for a d/c untill her bowels have moved. Hospitalist team has signed off on case....Ortho team is updated by MONA Browne that the d/c will not take place today. DCP team will follow closely, provide advocacy for pt as well as coordination with the care team members for a safe and appropriate d/c for this patient. Pt was issued a PRATEEK today by [facility] and is aware of her appeal rights if this is needed. Original Note: DCP: continued: EMR reviewed and case discussed in Team Rounds. Dr. Higginbotham is signing off as hospitalist today but she discussed her recommendations for further treatment. She discussed same with Keith العراقي. [facility] is updated. Spoke with [facility] ilene Garcia today for Debo. She notes that they are poised to auth the snf stay but will need to look at notes closer to d/c. Current OT/PT notes from yesterday and Dr. Higginbotham and RG العراقي's notes are faxed now by [facility] to [place]. [facility] will need to be clear on the needed IV antibiotic plan and have all in place before they can accept and the [place] auth will need to be in place. PASRR status: new one not needed. Pt is returning to [facility] and with no PASRR related changes. Checked in with pt and went over plan. Pt noted that she was not paying the $260 day bed hold and thus wanted reassurance that [facility] would have a bed. Checked in with Елена. She said she had discussed same with pt and that she could not promise pt her original room or window view but a bed would be there for her at d/c. At this time anticipate d/c probable on Monday but uncertain at this time. DCP will be following closely.
--- NOTE | 2019-04-05 10:45 | P.DS_ITS ---
History of Present Illness Date Patient Seen: 04/05/19 Time Patient Seen: 10:44 Chief complaint: left hip Narrative: Hospital day 7, postop day 3 following left hip hardware removal and I and D of septic joint. Patient has remained stable since surgery. Pain has improved. Her H&H have fluctuated. White count went up slightly today. Patient has was up with physical therapy yesterday who bedside and chair. Her wound culture grew group G Streptococcus which was sensitive to all except clindamycin. Dr. Baer felt the patient could be discharged back to [facility] today on IV antibiotic. Discharge Providers Date of admission: 03/30/19 14:43 Discharge Date: 04/05/19 Primary care physician: Caprice Burrows PA-C Consults: 03/30/19 13:51 Consult to Orthopedic Surgery Routine Comment: Consulting Provider: Cyrus Cam Reason for consultation: Admission Has provider been notified: Yes 03/30/19 15:37 Consult to Physical Therapy Evaluate & Treat Comment: TDWB LLE Physician Instructions: Evaluate and Treat Consult to Respiratory Therapy Evaluate & Treat Comment: Physician Instructions: Evaluate and treat 04/02/19 17:17 Consult to PICC Line RN Routine Comment: 04/02/19 18:02 Consult to Discharge Planning Routine Comment: Consult to Physical Therapy Evaluate & Treat Comment: NWB left lower extremity Physician Instructions: post op GIA protocol Consult to Respiratory Therapy Evaluate & Treat Comment: Physician Instructions: Evaluate and treat 04/03/19 09:11 Consult to Occupational Therapy Evaluate & Treat Comment: Out of bed as tolerated, nonweightbearing left leg Physician Instructions: Evaluate and treat Consult to Physical Therapy Evaluate & Treat Comment: Physician Instructions: Evaluate and Treat 04/03/19 09:13 Consult to PICC Line RN Routine Comment: Insert PICC line today 04/03/19 11:04 Consult to Physical Therapy Evaluate & Treat Comment: Physician Instructions: Evaluate and Treat Discharge provider: Cam العراقي PA-C Summary Discharge Diagnosis: Status post left hip hardware removal and I and D of septic joint. Hospital Course: Patient brought to hospital on 03/30/2019 for above-noted problem. The initial plan was for her to have left hip hardware removal and total hip arthroplasty done. At the time of her surgery she was found have a septic joint and the hardware was removed and wound closed. She was then placed on vancomycin and Ancef until cultures reported. She was found to have group G Streptococcus which was sensitive to all except clindamycin. The vancomycin was stopped and patient placed on ceftriaxone 2 g q.d.. Status at Discharge Cognitive/behavioral status at discharge: oriented Functional status at discharge: uses cane/walker Overall status at discharge: patient is progressing back to baseline Time Spent with Patient Less than 30 minutes Exam Vital Signs (past 8 hours): - 04/05/19 05:30 04/05/19 08:15 04/05/19 08:50 Temperature 97.8 F 98.1 F Pulse Rate 81 74 Respiratory Rate 18 16 Blood Pressure 135/66 136/64 Pulse Oximetry 98 99 98 Fraction of Inspired Oxygen 21 Oxygen Delivery Method Room Air Oxygen Flow Rate 0 Narrative Exam Narrative: Alert, oriented no acute distress lying in bed. Left leg. Kt dressing to left hip incision is clear without signs of infection or inflammation. No calf pain or swelling. Pulses symmetrical. Objective Labs Result Diagrams: 04/05/19 05:23 04/05/19 05:23 Labs: Laboratory Results - last 24 hr 04/05/19 04/05/19 04/05/19 05:23 05:23 05:23 WBC 11.7 H RBC 2.42 L Hgb 7.6 L Hct 23.3 L MCV 96.1 MCH 31.6 MCHC 32.8 RDW 14.4 Plt Count 411 H Neut % (Auto) Not Reportable Lymph % (Auto) Not Reportable Eagle % (Auto) Not Reportable Eos % (Auto) Not Reportable Baso % (Auto) Not Reportable Lymph # (Auto) Not Reportable Eagle # (Auto) Not Reportable Baso # (Auto) Not Reportable Total Counted 100 Seg Neutrophils % 55.0 Band Neutrophils % 2.0 L Lymphocytes % (Manual) 29.0 Monocytes % (Manual) 10.0 Eosinophils % (Manual) 3.0 Metamyelocytes % 1.0 H Neutrophils # (Manual) 6669 H RBC Morphology Normal morphology Sodium 135 L Potassium 4.4 Chloride 104 Carbon Dioxide 29 BUN 12 Creatinine 0.50 L Estimated GFR > 60.0 BUN/Creatinine Ratio 24.0 H Glucose 89 Calcium 8.5 Magnesium 1.9 Procalcitonin 0.26 Discharge Plan Discharge Plan Discharge Problem: Acute pain of left hip Patient Disposition: SNF Transfer to: [facility] Under care of provider: Facility MD or PCP Transportation: Facility vehicle Labs: CBC, BMP, CRP done 04/06/2019 with results to Linda Baer MD Discharge comment: Patient to be on IV ceftriaxone x6 weeks. Toe-touch weight- bearing left leg. I certify the postop hospital longterm care is medically necessary on a continuing basis for any conditions for which he/ she received care during this hospitalization.: Yes The receiving facility has agreed to accept transfer and provide medical treatment.: Yes Discharge Med Rec/Prescriptions Prescriptions: New ceftriaxone 2 gram recon soln 2 gram IV Q24H Qty: 42 RF: 0 Continued aspirin 325 mg tablet 650 mg PO BEDTIME PRN (Reason: Pain, Mild) RF: 0 amlodipine [Norvasc] 5 mg tablet 5 mg PO DAILY Qty: 90 RF: 0 levothyroxine [Synthroid] 75 mcg tablet 75 mcg PO DAILY Qty: 90 RF: 3 olive leaf extract 500 mg 1,000 mg PO DAILY RF: 0 lisinopril-hydrochlorothiazide 20-25 mg tablet 1 tab PO DAILY RF: 0 hydrocodone-acetaminophen 5-325 mg Tablet 1 tab PO Q4HR PRN (Reason: Pain, Mild (1-3)) Qty: 15 RF: 0 ascorbic acid (vitamin C) [Vitamin C] 500 mg Tablet 500 mg PO BID Qty: 30 RF: 0 calcium carbonate 200 mg calcium (500 mg) Tablet,Chewable 1,000 mg PO Q4HR PRN (Reason: Dyspepsia) Qty: 30 RF: 0 docusate sodium [DOK] 100 mg Capsule 100 mg PO BID Qty: 30 RF: 0 cholecalciferol (vitamin D3) [Vitamin D3] 2,000 unit capsule 2,000 unit PO DAILY Qty: 30 RF: 0 ferrous sulfate [iron] 325 mg (65 mg iron) tablet 325 mg PO BID Qty: 60 RF: 0 Follow up/Referrals: Caprice Burrows PA-C [Primary Care Provider] - Discharge Health Status Brief summary of current health status: 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 She was brought to the hospital to have revision total hip arthroplasty done. At the time of surgery she was found to have septic hip joint and hardware was removed. She is being treated with IV antibiotics for 6 weeks and then will have total hip arthroplasty. Multidrug resistant organism: No MDRO MDRO Verified by culture: Yes Provider Discharge Instructions Diet: Diet as Tolerated Liquid consistency: Normal/Thin Food texture: Regular Activity: Toe-touch weight-bearing left leg. She may be up as tolerated. Cold/Heat Therapy: Cold pack to left hip as needed. Catheter: 2-way Lopez Catheter comment: DC Lopez once she is more active. Skin/Wound/Dressing Care Report to your healthcare provider any signs of infection, such as:: chills, fe katelynn, night sweats, increased pain, unusual drainage and unusual redness Dressing: Kt dressing to left hip x2 weeks. She will then need dressing removal and staple removal at Orthopedic office. Special Rehabilitation Services Reason for rehabilitation: Post-operative therapy Rehab type: Physical therapy and Occupational therapy Restrictions to mobility: Toe-touch weight-bearing left leg. Limited range of motion left hip. Discharge Data Primary Care Provider: Caprice Burrows Attending Provider: Linda Baer Admit Date/Time: 03/30/19 14:43
--- NOTE | 2019-04-05 10:55 | PT.IPTN ---
Current Diagnoses Breakdown (mechanical) of internal fixation device of left femur, initial encounter (03/30/19) Personal history of (healed) traumatic fracture (03/30/19) Presence of other bone and tendon implants (03/30/19) Surgery Performed Operation Date: 04/02/19 12:15 Actual Procedures p Removal Hardware prior ORIF, Excisional Irrigation and Debridement, Left Hip(Left) - Linda Baer MD Physical Therapy Treatment Note M2 PT-IP Current Condition Start: 03/31/19 13:06 Freq: NEEDED Status: Active Protocol: Document 04/03/19 15:00 AB (Rec: 04/03/19 15:53 AB [id number]) Physical Therapy Current Condition Current Condition Evaluation Date 04/03/19 Treatment Diagnosis s/pL hip removal of int fixation & excisional I&D; diff in walking Onset Date 03/30/19 Weight Bearing Status Weight Bearing Status Non-Weight Bearing Allowed Weight Bearing Amount (enter % LLE: NWB or #) (%) M3 PT-IP Subjective Start: 03/31/19 13:06 Freq: NEEDED Status: Active Protocol: Document 04/05/19 10:55 AB (Rec: 04/05/19 12:02 AB [id number]) Subjective Physical Therapy Visit Type Type Treatment Note Visit Start Time 10:55 Visit Stop Time 11:13 Total Visit Minutes 18 Number of SURVEY RODMAN Visits 0 Physical Therapy Visit Comments Patient Comments pt agreeable to do PT Therapy Pain Assessment Pain When Pain Assessed During Mobility Pain Present Pain Present Pain Reported Location Left Hip Scale Used pain scale not stated Pain Management Techniques Re-positioning Timing of Activity with Medications M4 PT-IP Mobility and Gait Start: 03/31/19 13:06 Freq: NEEDED Status: Active Protocol: Document 04/05/19 10:55 AB (Rec: 04/05/19 12:02 AB [id number]) PT-Bed Mobility Assessment Supine to Sit Supine to Sit Moderate Assistance 2 Person Assistance Head of Bed Elevated Scooting Scooting to Edge of Bed Maximum Assistance PT-Transfer Assessment Sit to and From Stand Sit to and from Stand Moderate Assistance 2 Person Assistance Use of Upper Extremities Equipment Transfer Assistive Device Gait Belt Front Wheeled Walker Orthotic/Prosthetic Devices or Brace: No Transfers Transfer Destination Chair Transfer Technique Stand Pivot Transfer Ability Level of Assist Maximum Assistance 2 Person Assistance Use of Upper Extremities Comments Mobility Comments pt able to stand pivot from bed to chair using FWW requiring max A x 2 and max cues. requires max A to keep NWB on LLE. Gait Assessment Comments Gait Comments unable at this time M5 PT-IP Objective Assessments Start: 03/31/19 13:06 Freq: NEEDED Status: Active Protocol: Document 04/03/19 15:00 AB (Rec: 04/03/19 15:50 AB [id number]) Orientation Orientation/Cognition Level of Alertness Alert Safety Awareness Decreased Safety Awareness Memory Description Short Term Impaired Gross Range of Motion Lower Extremity ROM Assessment Left Impaired Impairments L hip and knee tightness noted Strength Lower Extremity Strength Assessment Bilaterally Impaired Comments Strength Comments RLE: 4-/5 LLE: 3-/5 M6 PT-IP Treatment Start: 03/31/19 13:06 Freq: NEEDED Status: Active Protocol: Document 04/05/19 10:55 AB (Rec: 04/05/19 12:02 AB [id number]) Physical Therapy Treatment Education Education Provided Weight Bearing Status Safety M7 PT-IP Assessment and Plan Start: 03/31/19 13:06 Freq: NEEDED Status: Active Protocol: Document 04/05/19 10:55 AB (Rec: 04/05/19 12:02 AB [id number]) PT Summary Assessment and Plan Potential Rehabilitation Potential Good Summary Impairments Pain ROM Strength Balance Coordination Sensation Tone Cognition Bed Mobility Transfers Gait Activity Tolerance Progress Towards Goals Slow Progress due to Pain Slow Progress due to Medical Issues Assessment Summary pt progressing slowly and able to complete stand pivot transfer today but continues to require 2 person assist for mobility. pt will need SNF rehab to improve strength and function. Goals Bed Mobility Goal Contact Guard Assistance Transfer Goal Contact Guard Assistance Front Wheeled Walker Gait Goal Contact Guard Assistance Front Wheel Walker Gait Distance 50 Days to Meet Goals 10 Frequency of Treatment Frequency Of Treatment Twice a Day Treatment Plan Physical Therapy Treatment Plan Bed Mobility Training Transfer Training Gait Training Therapeutic Exercise Balance Retraining Post Op Education Discharge Planning Hot or Cold Pack Neuromuscular Re-ed Coordination Retraining Manual Therapy Recommendations To Nursing Amount of Assist Needed Mechanical Lift Discharge Recommendations PT Discharge Recommendations SNF Rehab
--- NOTE | 2019-04-05 11:09 | CM.DPC ---
DCP Cont: Faxed recent PT, OT and progress notes to [facility], Attn: Radha Castellanos at fax # [phone]. Fax confirmation scanned in. Amada Armenta, [facility]
[2019-04-05] MEDS: MAGNESIUM HYDROXIDE 30 ML UDC PO (11:51)
--- NOTE | 2019-04-05 12:09 | PT.IPTN ---
Current Diagnoses Breakdown (mechanical) of internal fixation device of left femur, initial encounter (03/30/19) Personal history of (healed) traumatic fracture (03/30/19) Presence of other bone and tendon implants (03/30/19) Surgery Performed Operation Date: 04/02/19 12:15 Actual Procedures p Removal Hardware prior ORIF, Excisional Irrigation and Debridement, Left Hip(Left) - Linda Baer MD Physical Therapy Treatment Note M2 PT-IP Current Condition Start: 03/31/19 13:06 Freq: NEEDED Status: Active Protocol: Document 04/03/19 15:00 AB (Rec: 04/03/19 15:53 AB [id number]) Physical Therapy Current Condition Current Condition Evaluation Date 04/03/19 Treatment Diagnosis s/pL hip removal of int fixation & excisional I&D; diff in walking Onset Date 03/30/19 Weight Bearing Status Weight Bearing Status Non-Weight Bearing Allowed Weight Bearing Amount (enter % LLE: NWB or #) (%) M3 PT-IP Subjective Start: 03/31/19 13:06 Freq: NEEDED Status: Active Protocol: Document 04/05/19 12:09 AB (Rec: 04/05/19 13:06 AB [id number]) Subjective Physical Therapy Visit Type Type Treatment Note Visit Start Time 12:09 Visit Stop Time 12:40 Total Visit Minutes 31 Number of COMPLEX CARE NURSE PRACTITIONER Visits 0 Physical Therapy Visit Comments Patient Comments per nurse, pt is requesting to use the toilet Therapy Pain Assessment Pain When Pain Assessed At Rest Pain Present Pain Present Pain Reported Location Left Hip Intensity 7 Scale Used Numeric (1 - 10) Pain Management Techniques Re-positioning Timing of Activity with Medications M4 PT-IP Mobility and Gait Start: 03/31/19 13:06 Freq: NEEDED Status: Active Protocol: Document 04/05/19 12:09 AB (Rec: 04/05/19 13:06 AB [id number]) PT-Bed Mobility Assessment Sit to Supine Sit to Supine Maximum Assistance 2 Person Assistance Scooting Scooting Up and Down in Bed Maximum Assistance PT-Transfer Assessment Sit to and From Stand Sit to and from Stand 2 Person Assistance Use of Upper Extremities Equipment Transfer Assistive Device Gait Belt Front Wheeled Walker Orthotic/Prosthetic Devices or Brace: No Transfers Transfer Destination Bed Bedside Commode Transfer Technique Stand Step Pivot Transfer Ability Level of Assist Maximum Assistance 2 Person Assistance Use of Upper Extremities Comments Mobility Comments pt requesting to use the toilet. bedside commode positioned next to pt. pt requires max A x 2 to scoot towards edge of chair. pt completed sit to stand from the chair max A x 2 and max cues. completed stand pivot transfer using FWW max A x 2 and max cues. pt unable to maintain NWB on LLE and requires max A and max cues to maintain. pt required max A x 2 for sit to stand from the bedside commode. required max A to maintain standing using FWW for support while NAC assisted with hygiene care. pt wanted to go back to bed. requires 2 attempts to pivot towards the bed with max A x 2 and max cues. pt needed a seated rest break and was unable to maintain NWB on LLE. pt completed sit to supine max A x 2 and max cues. positioned pt in bed. Left pt with NAC. M5 PT-IP Objective Assessments Start: 03/31/19 13:06 Freq: NEEDED Status: Active Protocol: Document 04/03/19 15:00 AB (Rec: 04/03/19 15:50 AB [id number]) Orientation Orientation/Cognition Level of Alertness Alert Safety Awareness Decreased Safety Awareness Memory Description Short Term Impaired Gross Range of Motion Lower Extremity ROM Assessment Left Impaired Impairments L hip and knee tightness noted Strength Lower Extremity Strength Assessment Bilaterally Impaired Comments Strength Comments RLE: 4-/5 LLE: 3-/5 M6 PT-IP Treatment Start: 03/31/19 13:06 Freq: NEEDED Status: Active Protocol: Document 04/05/19 12:09 AB (Rec: 04/05/19 13:06 AB [id number]) Physical Therapy Treatment Education Education Provided Precautions Weight Bearing Status Safety M7 PT-IP Assessment and Plan Start: 03/31/19 13:06 Freq: NEEDED Status: Active Protocol: Document 04/05/19 12:09 AB (Rec: 04/05/19 13:06 AB [id number]) PT Summary Assessment and Plan Potential Rehabilitation Potential Fair Summary Impairments Pain ROM Strength Balance Coordination Sensation Tone Cognition Bed Mobility Transfers Gait Activity Tolerance Progress Towards Goals Slow Progress due to Pain Slow Progress due to Medical Issues Slow Progress due to Activity Tolerance Assessment Summary pt requiring increase assistance this PT tx session and requires max cues with all tasks. pt unable to maintain NWB on LLE and requires max A and max cues. pt will need SNF rehab to improve strength and mobility. Goals Bed Mobility Goal Contact Guard Assistance Transfer Goal Contact Guard Assistance Front Wheeled Walker Gait Goal Contact Guard Assistance Front Wheel Walker Gait Distance 50 Days to Meet Goals 10 Frequency of Treatment Frequency Of Treatment Twice a Day Treatment Plan Physical Therapy Treatment Plan Bed Mobility Training Transfer Training Gait Training Therapeutic Exercise Balance Retraining Post Op Education Discharge Planning Hot or Cold Pack Neuromuscular Re-ed Coordination Retraining Manual Therapy Recommendations To Nursing Amount of Assist Needed Mechanical Lift Discharge Recommendations PT Discharge Recommendations SNF Rehab
--- NOTE | 2019-04-05 12:40 | OT.IP.TRT ---
Current Diagnoses Breakdown (mechanical) of internal fixation device of left femur, initial encounter (03/30/19) Personal history of (healed) traumatic fracture (03/30/19) Presence of other bone and tendon implants (03/30/19) Surgery Performed Operation Date: 04/02/19 12:15 Actual Procedures p Removal Hardware prior ORIF, Excisional Irrigation and Debridement, Left Hip(Left) - Linda Baer MD Occupational Therapy Treatment Note M2 OT-IP Current Condition Start: 04/03/19 15:44 Freq: Status: Active Protocol: Document 04/03/19 15:36 PJM (Rec: 04/03/19 16:03 PJM [id number]) Occupational Therapy Current Condition Current Condition Evaluation Date 04/03/19 Treatment Diagnosis decr'd self care, mobility s/p hardware failure L hip ORIF w /infection Diagnosis Onset Date 04/02/19 Post Operative Precautions Other Precautions contact; 2 hip drains+SANAM drain Weight Bearing Status Weight Bearing Status Non-Weight Bearing Allowed Weight Bearing Amount (enter % LLE or #) (%) M3 OT- IP Subjective and Pain Start: 04/03/19 15:44 Freq: Status: Active Protocol: Document 04/05/19 12:29 CCC (Rec: 04/05/19 12:40 CCC [id number]) OT- Subjective Occupational Therapy Visit Type Type Treatment Note Visit Start Time 10:50 Visit Stop Time 11:15 Total Visit Minutes 25 Occupational Therapy Visit Comments Patient Comments Pt agreeable to get up to the chair. Pt seen with PT as needing extensive assist for mobility needs. OT Pain Assessment Pain When Pain Assessed During Mobility Pain Present Pain Present Pain Reported Location Left Hip Intensity 4 Scale Used Numeric (1 - 10) M4 OT- IP ADL's Start: 04/03/19 15:44 Freq: Status: Active Protocol: Document 04/04/19 14:08 PJM (Rec: 04/04/19 16:48 PJM [id number]) OT ADL-Grooming General Evaluation Grooming Ability Minimal Assistance Comments OT Grooming Comments pt provided with shampoo cap while seated EOB and needed min assist to apply it, SBA to remove cap and towel dry hair OT ADL-Dressing General Eval Lower Body Dressing Ability Total Assistance Areas Needing Assistance Socks OT ADL-Toileting General Evaluation Toileting Ability Total Assistance Areas Needing Assistance Empty Catheter or Colostomy Comments OT Toileting Comments caraballo still in place M5 OT- IP IADL's Start: 04/03/19 15:44 Freq: Status: Active Protocol: Document 04/03/19 15:36 PJM (Rec: 04/03/19 16:03 PJM [id number]) OT-Instrumental Activities of Daily Living Deficits IADL Deficits Identified Deficits Home Safety Awareness Awareness of Need for Assistance at Home Good Awareness Ability to Problem Solve Emergency Able to Problem Solve Situations Medication Management Medication Management No Deficits Identified Money Management Money Management No Deficits Identified Meal Preparation Meal Preparation Caregiver Provides Assist Meal Preparation Comments pt plans to have friend stay with her overnight to assist with evening meal and breakfast Sheet Metal Assembler Sheet Metal Assembler Caregiver Provides Assist Sheet Metal Assembler Comments pt will need assist with all contaminated land consultant Driving Driving Caregiver Provides Assist Driving Comments pt will need assist until mobility improves M6 OT- IP Functional Cognition Start: 04/03/19 15:44 Freq: Status: Active Protocol: Document 04/05/19 12:29 [facility] (Rec: 04/05/19 12:40 [facility] [id number]) Cognitive Factors Limiting Selfcare Function Cognitive Ability Level of Alertness Alert Patient Orientation Name Age Birthday Month Date Year Day of Week Place Situation Attention Span Ability Capable of Focused Attention Capable of Sustained Attention Ability to Follow Commands Able to Follow One Step Commands Memory Description Short Term Impaired Safety Awareness Underestimates Need for Assistance Problem Solving Ability Unable to Identify Errors Needs Assist to Identify Solutions Cognitive Comments Cognitive Assessment Comments Pt needs repetition and step by step instructions for hand placement and technique for mobility and standing with FWW . M7 OT- IP Mobility and Balance Start: 04/03/19 15:44 Freq: Status: Active Protocol: Document 04/05/19 12:29 [facility] (Rec: 04/05/19 12:40 [facility] [id number]) OT- Bed Mobility Assessment Supine to Sit Supine to Sit Assist Moderate Assistance 2 Person Assistance OT-Transfer Assessment Sit to and From Stand Sit to and from Stand Moderate Assistance 2 Person Assistance Transfers Transfer Ability Maximum Assistance 2 Person Assistance Technique Transfer Destination Chair Transfer Technique Stand Step Pivot Devices Transfer Assistive Devices Gait Belt Front Wheeled Walker Comments Mobility Comments MAX A X2 for transfer, assist for RLE management, guidance of FWW, and balance to get from bed to recliner. OT- Balance Assessment Sitting Balance and Reactions Static Sitting Balance Ability Good Dynamic Sitting Balance Ability Fair Standing Balance and Reactions Static Standing Balance Ability Poor Dynamic Standing Balance Ability Poor M8 OT- IP Objective Assessments Start: 04/03/19 15:44 Freq: Status: Active Protocol: Document 04/03/19 15:36 PJM (Rec: 04/03/19 16:03 PJM [id number]) OT Gross Range of Motion Upper Extremity Range of Motion Assessment Within Functional Limits OT Strength Upper Extremity Strength Assessment Within Functional Limits Hand [place] Weaver Strength Hand Dominance Right OT- Coordination Assessment Comments Coordination Comments BUE WFL OT-Muscle Tone Assessment Muscle Tone WNL Yes OT Sensation Assessment Comments Summary Comments BUE WNL per pt M9 OT- IP Assessment and Plan Start: 04/03/19 15:44 Freq: Status: Active Protocol: Document 04/05/19 12:29 CCC (Rec: 04/05/19 12:40 CCC [id number]) OT Summary Assessment and Plan Summary Progress Towards Goals Progressing Toward Goals Assessment Summary Pt improving and able to tolerate transfer today. Pt will benefit from skilled rehab. Goals Grooming Goal Independent Dressing Goal Minimal Assistance Toileting Goal Moderate Assistance Bathing Goal Minimal Assistance Toilet Transfer Goal Moderate Assistance Bedside Commode Patient/Caregiver Education Goal Demonstrate Post-Op Precautions Demonstrate Energy Conservation and Pacing OT-Other Goals Grooming to be done seated in chair after set up. Bathing goal is for seated upper body sponge bath Days to Meet Goals 5 Frequency of Treatment Frequency Of Treatment Once a Day Treatment Plan OT Treatment Plan ADL Training Functional Mobility Patient/Family Education Discharge Planning Discharge Recommendations OT Discharge Recommendations SNF Rehab Home Equipment Needs to be determined in next rehab setting pending progress
--- NOTE | 2019-04-05 13:10 | CM.DPC ---
DCP Cont: Went in to have patient sign her IMM, patient states she is not ready to be discharged today. States she is in a lot of pain and that she had just wet the bed. She stated she has informed her nurse, she is not ready for discharge. I explained the IMM and we agreed to take a verbal consent as she was in too much pain to sign. All of this info was relayed to Aure, Forging Engineer. Amada Armenta, Crusher Operator
[2019-04-05 14:49] LABS: Osmolality, Serum 277 mosm/kg (260-310)
--- NOTE | 2019-04-05 16:28 | PC.NURSE ---
Day Shift- Urinary catheter removed at 1050 after speaking with both MARILOU Ware around [address] Baer at 1030 to remove urinary catheter. Pt had an episode of urine incontinence at 1255 as was unable to obtain help to mobilize OOB to void. Pt wanted prn pain meds at the same time and wanted to wait to be cleaned from inc urine until pain med had time to absorb. Pt given combination of prune juice, gingerale and butter to aid in moving a bowel, pt did have abd cramping, increase in flatus and burping. MOM X1 given at 1150, no BM result. Offered Bisacodyl supp several times last being at 1430, pt wanted to wait again until next pain med available at 1700 and will take at the same time. Evening Rn aware. Pt preferred to take only 1 Anderson prn at a time this shift. Pain 2-3/10 to left hip area.
--- NOTE | 2019-04-05 17:11 | PC.NURSE ---
1630- Patient had SVT rate 190-200. Domenic DUNN notified. After review of Telemetry events patient has been having runs of SVT since admission. Rates range from 140's to [address] Higginbotham notified by this RN. Nataliya Coordinator aware.
[2019-04-05] MEDS: CEFTRIAXONE 2 GM/50 ML FROZ.PIGGY IV (17:46)
[2019-04-05 17:50] LABS: Hematocrit 26.6 % (36-46); Hemoglobin 8.8 g/dL (12.0-16.0)
[2019-04-05] MEDS: POLYETHYLENE GLYCOL 3350 17 GM POWD.PACK PO (20:58)
[2019-04-06] MEDS: HYDROCODONE/ACET 5/325 TABLET 2 TAB PO ×6 (02:02→23:34)
[2019-04-06 04:43] VITALS: BP 121/63; PULSE 77; RESP 16; TEMP 36.9; O2SAT 96
[2019-04-06] MEDS: LEVOTHYROXINE 75 MCG TABLET PO (06:06)
[2019-04-06 06:32] LABS: Hemoglobin 7.4 g/dL (12.0-16.0); Mean Corpuscular HGB Conc 33.1 % (30-36); Mean Corpuscular Hemoglobin 31.9 PG (26-34); Mean Corpuscular Volume 96.5 fL (80-100); Platelet Count 499 X10^3/uL (150-400); Red Blood Cell Count 2.33 X10^6/uL (4.0-5.2); Red Cell Distribution Width 14.4 % (11.6-14.8); White Blood Cell Count 13.8 X10^3/uL (4.5-11.0)
[2019-04-06 06:38] LABS: Add Manual Diff / Slide Review YES; Alanine Aminotransferase 52 IU/L (9-52); Albumin 2.4 g/dL (3.5-5.0); Albumin Globulin Ratio 0.9 (1.0-2.8); Alkaline Phosphatase 141 U/L (38-126); Aspartate Aminotransferase 45 IU/L (14-36); Bilirubin Total 0.2 mg/dL (0.2-1.3); Blood Urea Nitrogen 10 mg/dL (7-17); Calcium 8.6 mg/dL (8.4-10.2); Carbon Dioxide 29 mmol/L (22-32); Chloride 102 mmol/L (98-107); Estimated Glomerular Filt Rate > 60.0 mL/min (>60); Globulin 2.8 g/dL (1.7-4.1); Glucose 94 mg/dL (80-110); HEMOLYSIS < 15 (0-50); Hematocrit 22.5 % (36-46); Magnesium 1.9 mg/dL (1.6-2.3); Potassium 4.2 mmol/L (3.4-5.1); Sodium 135 mmol/L (137-145); Total Protein 5.2 g/dL (6.3-8.2)
[2019-04-06 07:27] LABS: Neutrophils Absolute Manual 8694 /uL (3000-5900); Total Cells Counted 100
[2019-04-06 07:28] LABS: Platelet Estimate Increased on smear
[2019-04-06 07:30] LABS: Hypochromasia 2+
[2019-04-06 08:11] LABS: Procalcitonin 0.16 ng/mL (<0.5)
[2019-04-06] MEDS: ASCORBIC ACID 500 MG TABLET PO ×2 (08:41→19:55)
[2019-04-06] MEDS: AMLODIPINE 5 MG TABLET PO (08:41)
[2019-04-06] MEDS: DOCUSATE 100 MG CAPSULE PO ×2 (08:41→19:53)
[2019-04-06] MEDS: CHOLECALCIFEROL (VITAMIN D3) 1,000 UNIT TABLET 2000 UNIT PO (08:41)
[2019-04-06] MEDS: BISACODYL 10 MG SUPP PR (08:41)
[2019-04-06] MEDS: PRENATAL VIT,CALC/IRON/FOLIC 1 TABLET 1 TAB PO (08:41)
[2019-04-06] MEDS: METOPROLOL IR 25 MG TABLET 12.5 MG PO ×2 (08:41→19:54)
[2019-04-06] MEDS: ASPIRIN EC 81 MG TABLET PO ×2 (08:41→19:54)
[2019-04-06] MEDS: THIAMINE 100 MG TABLET PO (08:41)
[2019-04-06] MEDS: SODIUM CHLORIDE 0.9% FLUSH 10 ML IV ×2 (08:41→17:32)
[2019-04-06] MEDS: LISINOPRIL 20 MG TABLET PO (08:41)
[2019-04-06 08:56] VITALS: BP 117/58; PULSE 72; RESP 14; TEMP 36.5; O2SAT 97
[2019-04-06 09:27] LABS: Hemoglobin 8.4 g/dL (12.0-16.0)
--- NOTE | 2019-04-06 10:22 | PM.PNPO.1 ---
Subjective Date Patient Seen: 04/06/19 Time Patient Seen: 10:23 Interval history: Postop day for I and D removal hardware left hip infection. Patient had intertrochanteric fracture with operative fixation as she sustained a failure of hardware loss of reduction and infection was found at the revision attempt. Hardware was removed and patient has been placed on antibiotics. Cultures growing a group G strep. Patient has been on ceftriaxone. Infectious disease doctor brett Rodgers at [facility] was consulted. Patient's white count did go up from a 10-11.7-13.8 today. After discussion with hospitalist Dr. Daisy Higginbotham who also discussed with Dr. Rodgers, will follow-up on [facility] PCR, if that shows signs of anaerobes would increase coverage to Unasyn 3 g Q 6. Exam Vital Signs (past 8 hours): - 04/06/19 04:43 04/06/19 08:56 Temperature 98.5 F 97.7 F Pulse Rate 77 72 Respiratory Rate 16 14 Blood Pressure 121/63 117/58 L Pulse Oximetry 96 97 Fraction of Inspired Oxygen 21 Oxygen Delivery Method Room Air Oxygen Flow Rate 0 Narrative Exam Narrative: Alert and oriented lying in bed. Responds to questions appropriately Regular rate and rhythm Breathing unlabored on room air Extremities: Left hip dressing in place scant drainage no erythema thigh is soft. Calf soft. Wiggles ankles and toes. Brisk capillary refill. Patient has a briefly removed her SCDs but states has them on most of the time. Objective Labs Result Diagrams: 04/06/19 09:10 04/06/19 06:05 Labs: Laboratory Results - last 24 hr 04/02/19 04/05/19 04/06/19 05:28 16:53 06:05 WBC 13.8 H RBC 2.33 L Hgb 8.8 L 7.4 L Hct 26.6 L 22.5 L MCV 96.5 MCH 31.9 MCHC 33.1 RDW 14.4 Plt Count 499 H Neut % (Auto) Not Reportable Lymph % (Auto) Not Reportable Forrest % (Auto) Not Reportable Eos % (Auto) Not Reportable Baso % (Auto) Not Reportable Lymph # (Auto) Not Reportable Forrest # (Auto) Not Reportable Baso # (Auto) Not Reportable Total Counted 100 Seg Neutrophils % 60.0 Band Neutrophils % 3.0 Lymphocytes % (Manual) 16.0 L Monocytes % (Manual) 10.0 Eosinophils % (Manual) 8.0 H Metamyelocytes % 1.0 H Myelocytes % 2.0 H Neutrophils # (Manual) 8694 H Platelet Estimate Increased on smear RBC Morphology See below Hypochromasia 2+ H Sodium Potassium Chloride Carbon Dioxide BUN Creatinine Estimated GFR BUN/Creatinine Ratio Glucose Serum Osmolality 277 Calcium Magnesium Total Bilirubin AST ALT Alkaline Phosphatase Total Protein Albumin Globulin Albumin/Globulin Ratio Procalcitonin 04/06/19 04/06/19 04/06/19 06:05 06:05 09:10 WBC RBC Hgb 8.4 L Hct 25.0 L MCV MCH MCHC RDW Plt Count Neut % (Auto) Lymph % (Auto) Forrest % (Auto) Eos % (Auto) Baso % (Auto) Lymph # (Auto) Forrest # (Auto) Baso # (Auto) Total Counted Seg Neutrophils % Band Neutrophils % Lymphocytes % (Manual) Monocytes % (Manual) Eosinophils % (Manual) Metamyelocytes % Myelocytes % Neutrophils # (Manual) Platelet Estimate RBC Morphology Hypochromasia Sodium 135 L Potassium 4.2 Chloride 102 Carbon Dioxide 29 BUN 10 Creatinine 0.40 L Estimated GFR > 60.0 BUN/Creatinine Ratio 25.0 H Glucose 94 Serum Osmolality Calcium 8.6 Magnesium 1.9 Total Bilirubin 0.2 AST 45 H ALT 52 Alkaline Phosphatase 141 H Total Protein 5.2 L Albumin 2.4 L Globulin 2.8 Albumin/Globulin Ratio 0.9 L Procalcitonin 0.16 Assessment & Plan Post-op Postoperative Procedures Operation Date: 04/02/19 12:15 Actual Procedures Side Surgeon p Removal Hardware prior ORIF, Excisional Irrigation and Debridement, Left Hip Left Linda Leobardo Baer MD Follow-up on [facility] PCR, with signs of anaerobes consider changing antibiotic from ceftriaxone to Unasyn Patient is also low albumin level 2.5 and has poor oral intake. Discussed albumin intravenously to help optimize the patient's healing. Will order dietitian consult for Monday as well. The patient will may remain hospitalized until Monday for monitoring Will recheck H&H if still low consider 1 unit transfusion. Patient states she has had this in the past had symptomatic relief Check CRP for response to antibiotics Continue DVT prophylaxis Quality VTE Deep Vein Thrombosis/Pulmonary Embolism Present on Admission: No
[2019-04-06] MEDS: ALBUMIN HUMAN 25 GM/100 ML VIAL IV (10:37)
--- NOTE | 2019-04-06 10:41 | CM.DPC ---
Addendum entered by Monica Rob R.N. 04/06/19 14:36: Went ahead and faxed yesterday's occupational and physical therapy notes to [facility]. Patient refused P.T. today, but faxed today's note regardless. Addendum entered by Monica Rob R.N. 04/06/19 11:35: Debo, social work case manager from [facility] called back. She stated that she will need yesterday's therapy notes, as well as today's. Let her know that this social work case manager will send over today's, as soon as they are complete, and will include yesterday's. Debo stated, she looks like she is a good candidate for skilled, but understands that she is medically unstable. Will send notes today, and will follow up with Debo tomorrow. Addendum entered by Monica Rob R.N. 04/06/19 11:16: Looking at recent note from Dr. Berg, patient could be here until Monday, for she is not medically stable. Original Note: DCP Cont: Patient is not being discharged today, secondary to some changes in her lab work. Had spoken to hospitalist this morning, for she had consulted patient, and was going to update orthopedist. This social work case manager called [facility], for patient will need a new authorization to go back to [facility]. Was told by Dee at [facility], that Debo is her social work case manager this week-end. Left Debo a message regarding tentative plan of discharge tomorrow. Let her know in the voice mail that as soon as updated therapy notes are in, will fax to them. P: DCP to continue to follow closely and follow up with [facility]. Will fax updated physical therapy notes from today when they are completed. Monica Rob RN/Chute Boss
[2019-04-06 11:13] LABS: C-Reactive Protein Quant 13.9 mg/dL (<1.0)
[2019-04-06 11:43] VITALS: BP 141/65; PULSE 83; RESP 16; TEMP 36.7; O2SAT 99
--- NOTE | 2019-04-06 12:01 | PT.IPTN ---
Current Diagnoses Breakdown (mechanical) of internal fixation device of left femur, initial encounter (03/30/19) Personal history of (healed) traumatic fracture (03/30/19) Presence of other bone and tendon implants (03/30/19) Surgery Performed Operation Date: 04/02/19 12:15 Actual Procedures p Removal Hardware prior ORIF, Excisional Irrigation and Debridement, Left Hip(Left) - Linda Baer MD Physical Therapy Treatment Note M2 PT-IP Current Condition Start: 03/31/19 13:06 Freq: NEEDED Status: Active Protocol: Document 04/03/19 15:00 AB (Rec: 04/03/19 15:53 AB [id number]) Physical Therapy Current Condition Current Condition Evaluation Date 04/03/19 Treatment Diagnosis s/pL hip removal of int fixation & excisional I&D; diff in walking Onset Date 03/30/19 Weight Bearing Status Weight Bearing Status Non-Weight Bearing Allowed Weight Bearing Amount (enter % LLE: NWB or #) (%) M3 PT-IP Subjective Start: 03/31/19 13:06 Freq: NEEDED Status: Active Protocol: Document 04/06/19 11:58 AB (Rec: 04/06/19 12:01 AB [id number]) Subjective Physical Therapy Visit Type Type Patient Refusal Notes pt refused PT this morning. stated that she is not ready and wants PT to wait for 3 hours. pt also stated that it will be a good idea for her to have a rest day.
--- NOTE | 2019-04-06 14:30 | PT.IPTN ---
Current Diagnoses Breakdown (mechanical) of internal fixation device of left femur, initial encounter (03/30/19) Personal history of (healed) traumatic fracture (03/30/19) Presence of other bone and tendon implants (03/30/19) Surgery Performed Operation Date: 04/02/19 12:15 Actual Procedures p Removal Hardware prior ORIF, Excisional Irrigation and Debridement, Left Hip(Left) - Linda Baer MD Physical Therapy Treatment Note M2 PT-IP Current Condition Start: 03/31/19 13:06 Freq: NEEDED Status: Active Protocol: Document 04/03/19 15:00 AB (Rec: 04/03/19 15:53 AB [id number]) Physical Therapy Current Condition Current Condition Evaluation Date 04/03/19 Treatment Diagnosis s/pL hip removal of int fixation & excisional I&D; diff in walking Onset Date 03/30/19 Weight Bearing Status Weight Bearing Status Non-Weight Bearing Allowed Weight Bearing Amount (enter % LLE: NWB or #) (%) M3 PT-IP Subjective Start: 03/31/19 13:06 Freq: NEEDED Status: Active Protocol: Document 04/06/19 14:30 AB (Rec: 04/06/19 15:52 AB [id number]) Subjective Physical Therapy Visit Type Type Treatment Note Visit Start Time 14:30 Visit Stop Time 15:25 Total Visit Minutes 42 Notes pt seen for split visits Number of RESORT MANAGER Visits 0 Physical Therapy Visit Comments Patient Comments pt initially refusing PT. stated that she wants to move her bowels first and get an enema. talked to the nurse and stated that pt has to get up before enema will be given. nurse talked to the pt. pt agreed to get up. Therapy Pain Assessment Pain When Pain Assessed At Rest Pain Present Pain Present Pain Reported Location Left Hip Scale Used pain scale not stated Pain Management Techniques Distraction Re-positioning Timing of Activity with Medications M4 PT-IP Mobility and Gait Start: 03/31/19 13:06 Freq: NEEDED Status: Active Protocol: Document 04/06/19 14:30 AB (Rec: 04/06/19 15:52 AB [id number]) PT-Bed Mobility Assessment Supine to Sit Supine to Sit Maximum Assistance 1 Person Assistance Head of Bed Elevated Sit to Supine Sit to Supine Maximum Assistance 2 Person Assistance Head of Bed Elevated Scooting Scooting to Edge of Bed Maximum Assistance PT-Transfer Assessment Sit to and From Stand Sit to and from Stand Maximum Assistance 2 Person Assistance Use of Upper Extremities Equipment Transfer Assistive Device Gait Belt Front Wheeled Walker Orthotic/Prosthetic Devices or Brace: No Transfers Transfer Destination Bedside Commode Transfer Technique Stand Step Pivot Transfer Ability Level of Assist Maximum Assistance 2 Person Assistance Use of Upper Extremities Comments Mobility Comments pt completed sit to stand from EOB max A x 2 and max cues. completed stand pivot transfer using FWW max A x 2 and max cues. pt unable to maintain NWB on LLE and needs assistance to maintain. pt completed sit to stand from bedside commode max A x 2 and max cues and was able to maintain standing using FWW for support max A x 2 and max cues while NAC assisted with hygiene care. pt completed stand pivot transfer to the bed usign FWW max A x 2 and max cues. pt requires max A to maintain NWB on LLE and anothe rmax A to stabilize pt. M5 PT-IP Objective Assessments Start: 03/31/19 13:06 Freq: NEEDED Status: Active Protocol: Document 04/03/19 15:00 AB (Rec: 04/03/19 15:50 AB [id number]) Orientation Orientation/Cognition Level of Alertness Alert Safety Awareness Decreased Safety Awareness Memory Description Short Term Impaired Gross Range of Motion Lower Extremity ROM Assessment Left Impaired Impairments L hip and knee tightness noted Strength Lower Extremity Strength Assessment Bilaterally Impaired Comments Strength Comments RLE: 4-/5 LLE: 3-/5 M6 PT-IP Treatment Start: 03/31/19 13:06 Freq: NEEDED Status: Active Protocol: Document 04/06/19 14:30 AB (Rec: 04/06/19 15:52 AB [id number]) Physical Therapy Treatment Education Education Provided Precautions Weight Bearing Status Safety M7 PT-IP Assessment and Plan Start: 03/31/19 13:06 Freq: NEEDED Status: Active Protocol: Document 04/06/19 14:30 AB (Rec: 04/06/19 15:52 AB [id number]) PT Summary Assessment and Plan Potential Rehabilitation Potential Fair Summary Impairments Pain ROM Strength Balance Coordination Sensation Tone Cognition Bed Mobility Transfers Gait Activity Tolerance Progress Towards Goals Slow Progress due to Pain Slow Progress due to Medical Issues Assessment Summary pt continues to require max A x 2 and max cues and will need SNF rehab to improve strength and mobility. Goals Bed Mobility Goal Contact Guard Assistance Transfer Goal Contact Guard Assistance Front Wheeled Walker Gait Goal Contact Guard Assistance Front Wheel Walker Gait Distance 50 Days to Meet Goals 10 Frequency of Treatment Frequency Of Treatment Twice a Day Treatment Plan Physical Therapy Treatment Plan Bed Mobility Training Transfer Training Gait Training Therapeutic Exercise Balance Retraining Post Op Education Discharge Planning Hot or Cold Pack Neuromuscular Re-ed Coordination Retraining Manual Therapy Recommendations To Nursing Amount of Assist Needed Mechanical Lift Discharge Recommendations PT Discharge Recommendations SNF Rehab
--- NOTE | 2019-04-06 14:41 | PC.NURSE ---
Day Shift Pt asked for suppository this AM which was given to pt. Hard stool was felt about 1-1.5 inches inside rectum. pt did have BM this afternoon, mostly liquid stool, no solid pieces. She informed me that she would no longer like to use the bedpan bc it hurt so she was just going to go to the bathroom in her brief. Explained to pt that that was not a great plan as it could cause a UTI. She stated she thought she already had one so it didn't matter. Notified , order for straight cath UA. Pt then agreed to try and use the bedpan and called a few mins after cleaning her up stating she had to urinate again. Pt then stated she needed an enema, explained to pt that it would be better if she tried the BSC. She agreed to try while stating it wouldn't matter and it would hurt and then she wouldn't be able to go. Was able to work with PT/OT to get her out of bed and to the BSC. PT came to room this AM, stated she could not work with them bc she needed pain meds. She had asked for pain meds about 30 min prior. I went into with pain medication and she was sound asleep, i did not wake her up to give her the medication. Provided pt with pain meds, PT stated she went back into room and she refused, Pt refused again in the afternoon when PT offered again about 5 min after she had just told me that she would be happy to work with them. Pt informed me that she feels stronger since she stopped working with PT. Asked pt how that would be and she stated that she can move her arms and right leg now where she couldn't before. explained to pt that if she didn't work with PT, she would lose her strength and have more problems. She told me that she was different than everyone else and this is how it worked for her. Pt had SCD in place, asked several times to make them looser to the point that they were not doing anything since they were barely touching her skin. explained that to pt, and she did not understand. explained that i could not loosen them more, she requested they just be off, which was done. Notified of this as well, order to start lovenox this evening for DVT prophylaxis.
[2019-04-06 15:05] LABS: Hematocrit 25.1 % (36-46); Hemoglobin 8.4 g/dL (12.0-16.0); Mean Corpuscular HGB Conc 33.7 % (30-36); Mean Corpuscular Hemoglobin 32.5 PG (26-34); Mean Corpuscular Volume 96.5 fL (80-100); Platelet Count 540 X10^3/uL (150-400); Red Cell Distribution Width 14.6 % (11.6-14.8); White Blood Cell Count 14.9 X10^3/uL (4.5-11.0)
[2019-04-06 15:08] LABS: Add Manual Diff / Slide Review YES
[2019-04-06 15:20] VITALS: BP 142/61; PULSE 87; RESP 18; TEMP 36.3; O2SAT 100
[2019-04-06 16:14] LABS: Neutrophils Absolute Manual 8344 /uL (3000-5900); Total Cells Counted 100
[2019-04-06 16:15] LABS: Polychromasia 1+
--- NOTE | 2019-04-06 16:19 | OT.IP.TRT ---
Current Diagnoses Breakdown (mechanical) of internal fixation device of left femur, initial encounter (03/30/19) Personal history of (healed) traumatic fracture (03/30/19) Presence of other bone and tendon implants (03/30/19) Surgery Performed Operation Date: 04/02/19 12:15 Actual Procedures p Removal Hardware prior ORIF, Excisional Irrigation and Debridement, Left Hip(Left) - Linda Baer MD Occupational Therapy Treatment Note M2 OT-IP Current Condition Start: 04/03/19 15:44 Freq: Status: Active Protocol: Document 04/03/19 15:36 PJM (Rec: 04/03/19 16:03 PJM [id number]) Occupational Therapy Current Condition Current Condition Evaluation Date 04/03/19 Treatment Diagnosis decr'd self care, mobility s/p hardware failure L hip ORIF w /infection Diagnosis Onset Date 04/02/19 Post Operative Precautions Other Precautions contact; 2 hip drains+SANAM drain Weight Bearing Status Weight Bearing Status Non-Weight Bearing Allowed Weight Bearing Amount (enter % LLE or #) (%) M3 OT- IP Subjective and Pain Start: 04/03/19 15:44 Freq: Status: Active Protocol: Document 04/06/19 16:12 CGR (Rec: 04/06/19 16:19 CGR [id number]) OT- Subjective Occupational Therapy Visit Type Type Treatment Note Visit Start Time 14:35 Visit Stop Time 14:52 Total Visit Minutes 33 Notes Co-treat with P.T., 2 sessions : First - [id number] Second - [id number] Occupational Therapy Visit Comments Patient Comments Requesting to get up to the [facility] OT Pain Assessment Pain When Pain Assessed After Treatment Pain Present Pain Present Pain Reported Location Left Hip Intensity 9 Scale Used Numeric (1 - 10) M4 OT- IP ADL's Start: 04/03/19 15:44 Freq: Status: Active Protocol: Document 04/06/19 16:12 CGR (Rec: 04/06/19 16:19 CGR [id number]) OT ADL-Grooming Comments OT Grooming Comments Offered to pt but she declined at this time. OT ADL-Toileting General Evaluation Toileting Ability Total Assistance Areas Needing Assistance Manage Clothing Perform Perineal Hygiene Comments OT Toileting Comments Pt had BM seated on [facility] and needed total assist for pericare. M5 OT- IP IADL's Start: 04/03/19 15:44 Freq: Status: Active Protocol: Document 04/03/19 15:36 PJM (Rec: 04/03/19 16:03 PJM [id number]) OT-Instrumental Activities of Daily Living Deficits IADL Deficits Identified Deficits Home Safety Awareness Awareness of Need for Assistance at Home Good Awareness Ability to Problem Solve Emergency Able to Problem Solve Situations Medication Management Medication Management No Deficits Identified Money Management Money Management No Deficits Identified Meal Preparation Meal Preparation Caregiver Provides Assist Meal Preparation Comments pt plans to have friend stay with her overnight to assist with evening meal and breakfast Spool Worker Spool Worker Caregiver Provides Assist Spool Worker Comments pt will need assist with all cancer registry manager Driving Driving Caregiver Provides Assist Driving Comments pt will need assist until mobility improves M6 OT- IP Functional Cognition Start: 04/03/19 15:44 Freq: Status: Active Protocol: Document 04/05/19 12:29 CCC (Rec: 04/05/19 12:40 CCC [id number]) Cognitive Factors Limiting Selfcare Function Cognitive Ability Level of Alertness Alert Patient Orientation Name Age Birthday Month Date Year Day of Week Place Situation Attention Span Ability Capable of Focused Attention Capable of Sustained Attention Ability to Follow Commands Able to Follow One Step Commands Memory Description Short Term Impaired Safety Awareness Underestimates Need for Assistance Problem Solving Ability Unable to Identify Errors Needs Assist to Identify Solutions Cognitive Comments Cognitive Assessment Comments Pt needs repetition and step by step instructions for hand placement and technique for mobility and standing with FWW . M7 OT- IP Mobility and Balance Start: 04/03/19 15:44 Freq: Status: Active Protocol: Document 04/06/19 16:12 CGR (Rec: 04/06/19 16:19 CGR [email or web address]) OT- Bed Mobility Assessment Supine to Sit Supine to Sit Assist Moderate Assistance 2 Person Assistance Sit to Supine Sit to Supine Assist Moderate Assistance 2 Person Assistance OT-Transfer Assessment Sit to and From Stand Sit to and from Stand Moderate Assistance 2 Person Assistance Transfers Transfer Ability Moderate Assistance 2 Person Assistance Technique Transfer Destination Bedside Commode Transfer Technique Stand Step Pivot Devices Transfer Assistive Devices Gait Belt Front Wheeled Walker Comments Mobility Comments Pt able to pivot on her RLE but having difficulty maintaining NWB to the LLE. OT- Balance Assessment Sitting Balance and Reactions Static Sitting Balance Ability Good Dynamic Sitting Balance Ability Fair Standing Balance and Reactions Static Standing Balance Ability Poor Dynamic Standing Balance Ability Poor M8 OT- IP Objective Assessments Start: 04/03/19 15:44 Freq: Status: Active Protocol: Document 04/03/19 15:36 PJM (Rec: 04/03/19 16:03 PJM [id number]) OT Gross Range of Motion Upper Extremity Range of Motion Assessment Within Functional Limits OT Strength Upper Extremity Strength Assessment Within Functional Limits Hand Jig Borer Strength Hand Dominance Right OT- Coordination Assessment Comments Coordination Comments BUE WFL OT-Muscle Tone Assessment Muscle Tone WNL Yes OT Sensation Assessment Comments Summary Comments BUE WNL per pt M9 OT- IP Assessment and Plan Start: 04/03/19 15:44 Freq: Status: Active Protocol: Document 04/06/19 16:12 CGR (Rec: 04/06/19 16:19 CGR [email or web address]) OT Summary Assessment and Plan Summary OT Impairments Pain Functional Mobility Grooming Dressing Toileting Bathing Toilet Transfers Shower Transfers Progress Towards Goals Progressing Toward Goals Assessment Summary Pt with slow improvement but still with significan tpain to the L hip with activity. Goals Grooming Goal Independent Dressing Goal Minimal Assistance Toileting Goal Moderate Assistance Bathing Goal Minimal Assistance Toilet Transfer Goal Moderate Assistance Bedside Commode Patient/Caregiver Education Goal Demonstrate Post-Op Precautions Demonstrate Energy Conservation and Pacing OT-Other Goals Grooming to be done seated in chair after set up. Bathing goal is for seated upper body sponge bath Days to Meet Goals 4 Frequency of Treatment Frequency Of Treatment Once a Day Treatment Plan OT Treatment Plan ADL Training Functional Mobility Patient/Family Education Discharge Planning Discharge Recommendations OT Discharge Recommendations SNF Rehab Home Equipment Needs to be determined in next rehab setting pending progress
[2019-04-06] MEDS: CEFTRIAXONE 2 GM/50 ML FROZ.PIGGY IV (17:32)
[2019-04-06] MEDS: ENOXAPARIN 40 MG/0.4 ML SYRINGE SUBCUT (17:33)
[2019-04-06] MEDS: SODIUM CHLORIDE 0.9% 250 ML 21 ML IV (17:33)
[2019-04-06 17:46] LABS: Bacteria Urine None Seen; WBC Urine None Seen (0-5/HPF)
[2019-04-06 17:48] LABS: Appearance Urine UA CLEAR; Bilirubin Urine UA NEGATIVE (NEGATIVE); Color Urine UA YELLOW; Glucose Urine UA NEGATIVE (Negative); Ketones Urine UA NEGATIVE (NEGATIVE); Leukocyte Esterase Urine UA NEGATIVE (NEGATIVE); Nitrite Urine UA NEGATIVE (Negative); Occult Blood Urine UA 3+ (Negative); Protein Urine UA NEGATIVE (Negative); pH Urine UA 7.5 (4.5-8.0)
[2019-04-06 18:03] LABS: Culture Indicated Urine Cult Not Indicated; RBC Urine 5-10/HPF (0-5/HPF)
[2019-04-06 19:20] VITALS: BP 139/64; PULSE 86; RESP 17; TEMP 36.3; O2SAT 97
[2019-04-06] MEDS: AMPICILLIN/SULBACTAM 3 GM 3 GM in SODIUM CHLORIDE 0.9% 100 ML IV (21:58)
[2019-04-06 23:20] VITALS: BP 127/54; PULSE 84; RESP 16; TEMP 37; O2SAT 93
[2019-04-07] MEDS: SODIUM CHLORIDE 0.9% FLUSH 10 ML IV ×3 (03:17→20:48)
[2019-04-07] MEDS: AMPICILLIN/SULBACTAM 3 GM 3 GM in SODIUM CHLORIDE 0.9% 100 ML IV ×4 (03:17→20:46)
[2019-04-07 04:15] VITALS: BP 122/55; PULSE 80; RESP 16; TEMP 36.7; O2SAT 98
[2019-04-07] MEDS: HYDROCODONE/ACET 5/325 TABLET 2 TAB PO ×5 (04:32→21:36)
[2019-04-07] MEDS: LEVOTHYROXINE 75 MCG TABLET PO (05:43)
[2019-04-07 08:05] VITALS: BP 151/64; PULSE 74; RESP 16; TEMP 36.6; O2SAT 98
--- NOTE | 2019-04-07 08:22 | PC.NURSE ---
Addendum entered by Ermelinda Smith R.N. 04/07/19 15:09: pts picco dressing changed by Dr. Berg earlier today and is now cdi. Pt is resting and being changed as she has been incontinent again and not asking to use the bed miller. Addendum entered by Ermelinda Smith R.N. 04/07/19 13:29: Pt rude to staff, also incontinent of urine x2 and there is no reason why she cannot ask to use the bed miller or get up to the commode. Pt is not to bear weight on her r.hip but she can get up with a 2 person assist. It was reported from noc shift rn that pt was incontinent of stool and urine in her bed yesterday and stated that she was just going to wet herself. It was also reported that she refused her physical therapy sessions yesterday. Pt given 1 vicodin earlier for pain relief and helpul.. She did get up today with pt and was able to sit in the chair for a good hour or more. Back to bed and stephanie bed put in pts room. She was just given another vicodin and is sleeping soundly in bed. Original Note: PT is A&Ox3, Dressings to l.hip are cdi. Pt has a hard time rolling to her r.side and rolls on her operative side better. Encouraged pt to get up with P.T. today and she states that she will get up twice for them. Eating breakfast now Blood drawn from [facility] for labs, patent and flushing well. Pt did ask for the bed miller first thing this morning and has not voided yet.
[2019-04-07] MEDS: PRENATAL VIT,CALC/IRON/FOLIC 1 TABLET 1 TAB PO (08:33)
[2019-04-07] MEDS: CHOLECALCIFEROL (VITAMIN D3) 1,000 UNIT TABLET 2000 UNIT PO ×2 (08:33→20:47)
[2019-04-07] MEDS: METOPROLOL IR 25 MG TABLET 12.5 MG PO ×2 (08:33→20:48)
[2019-04-07] MEDS: ASCORBIC ACID 500 MG TABLET PO ×2 (08:34→20:48)
[2019-04-07] MEDS: THIAMINE 100 MG TABLET PO (08:34)
[2019-04-07] MEDS: AMLODIPINE 5 MG TABLET PO (08:34)
[2019-04-07] MEDS: DOCUSATE 100 MG CAPSULE PO ×2 (08:34→20:46)
[2019-04-07] MEDS: LISINOPRIL 20 MG TABLET PO (08:34)
[2019-04-07 09:04] LABS: Hemoglobin 7.5 g/dL (12.0-16.0); Mean Corpuscular HGB Conc 32.8 % (30-36); Mean Corpuscular Hemoglobin 31.6 PG (26-34); Mean Corpuscular Volume 96.4 fL (80-100); Platelet Count 541 X10^3/uL (150-400); Red Blood Cell Count 2.39 X10^6/uL (4.0-5.2); Red Cell Distribution Width 14.5 % (11.6-14.8); White Blood Cell Count 14.2 X10^3/uL (4.5-11.0)
[2019-04-07 09:09] LABS: Add Manual Diff / Slide Review YES
--- NOTE | 2019-04-07 10:04 | PM.PNPO.1 ---
Subjective Date Patient Seen: 04/07/19 Time Patient Seen: 10:06 Interval history: Postop day5 for I and D removal hardware left hip infection. Patient had intertrochanteric fracture with operative fixation as she sustained a failure of hardware loss of reduction and infection was found at the revision attempt. Hardware was removed and patient has been placed on antibiotics. Cultures growing a group G strep. Patient has been on ceftriaxone. Infectious disease doctor brett Rodgers at [facility] was consulted. Patient's white count did go up from a 10-11.7-13.8 yesterday, additional check later in the evening was above 14. Therefore antibiotics were broadened to Unasyn last night (previously had 3 of 28 bags ceftriaxone). UWlabs PCR still not back. Urinalysis yesterday no bacteria. Lopez is out. The patient is voiding and had bowel movement. Denies diarrhea. Repeat hemoglobin was stable yesterday. DVT prophylaxis increased to Lovenox 40 mg daily. Patient encouraged to use SCDs but is not compliant with. Having moderate pain and decreased mobility requiring assistance for repositioning. Was refusing bedpan per nursing. Exam Vital Signs (past 8 hours): - 04/07/19 04:15 04/07/19 08:05 Temperature 98.1 F 97.8 F Pulse Rate 80 74 Respiratory Rate 16 16 Blood Pressure 122/55 L 151/64 H Pulse Oximetry 98 98 Fraction of Inspired Oxygen 21 Oxygen Delivery Method Room Air Oxygen Flow Rate 0 Narrative Exam Narrative: Alert and oriented no acute distress Vital signs stable. Afebrile Heart regular rate and rhythm. Not tachycardic Respiratory unlabored breathing room air Removing all extremities. Left lower extremity: Dressing intact. Due to concern for rising white count wound check was performed today. Harmony dressing changed. Wound shows no erythema or drainage. [place] in place. No fluctuance. There is mild ecchymosis. Thigh is soft. New harmony dressing replaced to suction. Patient wiggles toes demonstrates dorsiflexion plantar flexion. Calf soft Objective Labs Result Diagrams: 04/07/19 08:05 04/06/19 06:05 Labs: Laboratory Results - last 24 hr 04/06/19 04/06/19 04/06/19 09:01 09:10 17:20 WBC 14.9 H RBC 2.60 L Hgb 8.4 L Hct 25.1 L MCV 96.5 MCH 32.5 MCHC 33.7 RDW 14.6 Plt Count 540 H Neut % (Auto) Not Reportable Lymph % (Auto) Not Reportable [place] % (Auto) Not Reportable Eos % (Auto) Not Reportable Baso % (Auto) Not Reportable Lymph # (Auto) Not Reportable [place] # (Auto) Not Reportable Baso # (Auto) Not Reportable Total Counted 100 Seg Neutrophils % 56.0 Lymphocytes % (Manual) 28.0 Atypical Lymphs % 1.0 H Monocytes % (Manual) 5.0 Eosinophils % (Manual) 6.0 H Basophils % (Manual) 2.0 H Metamyelocytes % 1.0 H Myelocytes % 1.0 H Neutrophils # (Manual) 8344 H RBC Morphology See below Polychromasia 1+ H C-Reactive Protein 13.9 H Urine Color Yellow Urine Appearance Clear Urine pH 7.5 Ur Specific [place] 1.010 Urine Protein Negative Urine Glucose (UA) Negative Urine Ketones Negative Urine Occult Blood 3+ H Urine Nitrate Negative Urine Bilirubin Negative Urine Urobilinogen 1.0 Ur Leukocyte Esterase Negative Urine RBC 5-10/hpf H Urine WBC None seen Urine Bacteria None seen Ur Culture Indicated? Cult not indicated 04/07/19 08:05 WBC 14.2 H RBC 2.39 L Hgb 7.5 L Hct 23.0 L MCV 96.4 MCH 31.6 MCHC 32.8 RDW 14.5 Plt Count 541 H Neut % (Auto) Not Reportable Lymph % (Auto) Not Reportable [place] % (Auto) Not Reportable Eos % (Auto) Not Reportable Baso % (Auto) Not Reportable Lymph # (Auto) Not Reportable [place] # (Auto) Not Reportable Baso # (Auto) Not Reportable Total Counted Seg Neutrophils % Lymphocytes % (Manual) Atypical Lymphs % Monocytes % (Manual) Eosinophils % (Manual) Basophils % (Manual) Metamyelocytes % Myelocytes % Neutrophils # (Manual) RBC Morphology Polychromasia C-Reactive Protein Urine Color Urine Appearance Urine pH Ur Specific [place] Urine Protein Urine Glucose (UA) Urine Ketones Urine Occult Blood Urine Nitrate Urine Bilirubin Urine Urobilinogen Ur Leukocyte Esterase Urine RBC Urine WBC Urine Bacteria Ur Culture Indicated? Assessment & Plan Post-op Postoperative Procedures Operation Date: 04/02/19 12:15 Actual Procedures Side Surgeon p Removal Hardware prior ORIF, Excisional Irrigation and Debridement, Left Hip Left Linda Leobardo Baer MD 1. Left hip fracture failure of fixation with infection: Hardware removed. Patient nonweightbearing left lower extremity. Awaiting infection to clear before reconstruction 2. Left hip hardware infection: Continue antibiotics. These have been brought in to Unasyn giving the patient's rising white cell count. Will continue to monitor closely and follow-up UW PCR result, may need to rediscuss options with Infectious Disease if broaden coverage does not improve white count. Wound was evaluated today and shows no outward signs of remaining collection, no redness no fluctuance no drainage. But if not improving may consider 2nd operative evaluation. Patient not having diarrhea currently but could consider r/o c diff if this occurs. 3. Acute blood-loss anemia: Hemoglobin and hematocrit levels have been variable between 8.5 and 7.5 hbg between PICC line and peripheral draws. Patient is not tachycardic or hypotensive so would continue to monitor and hold off on transfusion at this point 4. DVT prophylaxis: SCDs and Lovenox 40 mg daily ordered Quality VTE Deep Vein Thrombosis/Pulmonary Embolism Present on Admission: No
[2019-04-07 10:05] LABS: Neutrophils Absolute Manual 10224 /uL (3000-5900); Total Cells Counted 100
[2019-04-07 10:06] LABS: Platelet Estimate Increased on smear; RBC Morphology Normal Morphology
--- NOTE | 2019-04-07 10:43 | PT.IPTN ---
Current Diagnoses Breakdown (mechanical) of internal fixation device of left femur, initial encounter (03/30/19) Personal history of (healed) traumatic fracture (03/30/19) Presence of other bone and tendon implants (03/30/19) Surgery Performed Operation Date: 04/02/19 12:15 Actual Procedures p Removal Hardware prior ORIF, Excisional Irrigation and Debridement, Left Hip(Left) - Linda Baer MD Physical Therapy Treatment Note M2 PT-IP Current Condition Start: 03/31/19 13:06 Freq: NEEDED Status: Active Protocol: Document 04/03/19 15:00 AB (Rec: 04/03/19 15:53 AB [id number]) Physical Therapy Current Condition Current Condition Evaluation Date 04/03/19 Treatment Diagnosis s/pL hip removal of int fixation & excisional I&D; diff in walking Onset Date 03/30/19 Weight Bearing Status Weight Bearing Status Non-Weight Bearing Allowed Weight Bearing Amount (enter % LLE: NWB or #) (%) M3 PT-IP Subjective Start: 03/31/19 13:06 Freq: NEEDED Status: Active Protocol: Document 04/07/19 10:40 CLB (Rec: 04/07/19 10:42 CLB [id number]) Subjective Physical Therapy Visit Type Type Patient Refusal Notes Pt refused therapy although she agreed to a 10:00 tx time. Returned a second time and pt continues to refuse therapy stating her arms are too weak right now to transfer. Will check again with pt this afternoon.
[2019-04-07 11:32] VITALS: BP 134/59; PULSE 74; RESP 16; TEMP 36.9; O2SAT 97
--- NOTE | 2019-04-07 11:50 | PT.IPTN ---
Current Diagnoses Breakdown (mechanical) of internal fixation device of left femur, initial encounter (03/30/19) Personal history of (healed) traumatic fracture (03/30/19) Presence of other bone and tendon implants (03/30/19) Surgery Performed Operation Date: 04/02/19 12:15 Actual Procedures p Removal Hardware prior ORIF, Excisional Irrigation and Debridement, Left Hip(Left) - Linda Baer MD Physical Therapy Treatment Note M2 PT-IP Current Condition Start: 03/31/19 13:06 Freq: NEEDED Status: Active Protocol: Document 04/03/19 15:00 AB (Rec: 04/03/19 15:53 AB [id number]) Physical Therapy Current Condition Current Condition Evaluation Date 04/03/19 Treatment Diagnosis s/pL hip removal of int fixation & excisional I&D; diff in walking Onset Date 03/30/19 Weight Bearing Status Weight Bearing Status Non-Weight Bearing Allowed Weight Bearing Amount (enter % LLE: NWB or #) (%) M3 PT-IP Subjective Start: 03/31/19 13:06 Freq: NEEDED Status: Active Protocol: Document 04/07/19 11:25 CLB (Rec: 04/07/19 11:50 CLB [id number]) Subjective Physical Therapy Visit Type Type Treatment Note Visit Start Time 11:25 Visit Stop Time 11:45 Total Visit Minutes 20 Number of STERILE SUPERVISOR Visits 1 Physical Therapy Visit Comments Patient Comments Pt requested to get to chair so she could get a new bed. Therapy Pain Assessment Pain When Pain Assessed During Mobility Pain Present Pain Present Pain Reported Location Left Hip Intensity 6 Scale Used Numeric (1 - 10) Pain Management Techniques Distraction Re-positioning Timing of Activity with Medications M4 PT-IP Mobility and Gait Start: 03/31/19 13:06 Freq: NEEDED Status: Active Protocol: Document 04/07/19 11:25 CLB (Rec: 04/07/19 11:50 CLB [id number]) PT-Bed Mobility Assessment Supine to Sit Supine to Sit Maximum Assistance 1 Person Assistance Head of Bed Elevated Scooting Scooting to Edge of Bed Maximum Assistance PT-Transfer Assessment Sit to and From Stand Sit to and from Stand Maximum Assistance 2 Person Assistance Use of Upper Extremities Equipment Transfer Assistive Device Gait Belt Front Wheeled Walker Orthotic/Prosthetic Devices or Brace: No Transfers Transfer Destination Chair Transfer Technique Stand Step Pivot Transfer Ability Level of Assist Maximum Assistance 2 Person Assistance Use of Upper Extremities M5 PT-IP Objective Assessments Start: 03/31/19 13:06 Freq: NEEDED Status: Active Protocol: Document 04/03/19 15:00 AB (Rec: 04/03/19 15:50 AB [id number]) Orientation Orientation/Cognition Level of Alertness Alert Safety Awareness Decreased Safety Awareness Memory Description Short Term Impaired Gross Range of Motion Lower Extremity ROM Assessment Left Impaired Impairments L hip and knee tightness noted Strength Lower Extremity Strength Assessment Bilaterally Impaired Comments Strength Comments RLE: 4-/5 LLE: 3-/5 M6 PT-IP Treatment Start: 03/31/19 13:06 Freq: NEEDED Status: Active Protocol: Document 04/07/19 11:25 CLB (Rec: 04/07/19 11:50 CLB [id number]) Physical Therapy Treatment Education Education Provided Precautions Weight Bearing Status Safety M7 PT-IP Assessment and Plan Start: 03/31/19 13:06 Freq: NEEDED Status: Active Protocol: Document 04/07/19 11:25 CLB (Rec: 04/07/19 11:50 CLB [id number]) PT Summary Assessment and Plan Summary Impairments Pain ROM Strength Balance Coordination Sensation Tone Cognition Bed Mobility Transfers Gait Activity Tolerance Progress Towards Goals Slow Progress due to Pain Slow Progress due to Medical Issues Assessment Summary Pt requires Max A x2 with max cues. Pt with increased pain during mobility with need for rest breaks in between tasks. Pt will requires SNF rehab to improve strength and mobility. Goals Bed Mobility Goal Contact Guard Assistance Transfer Goal Contact Guard Assistance Front Wheeled Walker Gait Goal Contact Guard Assistance Front Wheel Walker Gait Distance 50 Days to Meet Goals 10 Frequency of Treatment Frequency Of Treatment Twice a Day Treatment Plan Physical Therapy Treatment Plan Bed Mobility Training Transfer Training Gait Training Therapeutic Exercise Balance Retraining Post Op Education Discharge Planning Hot or Cold Pack Neuromuscular Re-ed Coordination Retraining Manual Therapy Recommendations To Nursing Amount of Assist Needed Mechanical Lift Discharge Recommendations PT Discharge Recommendations SNF Rehab
--- NOTE | 2019-04-07 12:21 | CM.DPC ---
DCP Cont: Patient is not being discharged today, but went ahead and sent updated physical therapy notes to [facility] from today, as well as yesterday's O.T. notes. Will continue to be in contact with [facility] regarding discharge. P: DCP to continue to follow closely. Plan is for patient to return back to [facility] when stable, and when [facility] authorization is in place. Monica Rob RN/Regulatory Agency Director
--- NOTE | 2019-04-07 12:45 | PT.IPTN ---
Current Diagnoses Breakdown (mechanical) of internal fixation device of left femur, initial encounter (03/30/19) Personal history of (healed) traumatic fracture (03/30/19) Presence of other bone and tendon implants (03/30/19) Surgery Performed Operation Date: 04/02/19 12:15 Actual Procedures p Removal Hardware prior ORIF, Excisional Irrigation and Debridement, Left Hip(Left) - Linda Baer MD Physical Therapy Treatment Note M2 PT-IP Current Condition Start: 03/31/19 13:06 Freq: NEEDED Status: Active Protocol: Document 04/03/19 15:00 AB (Rec: 04/03/19 15:53 AB [id number]) Physical Therapy Current Condition Current Condition Evaluation Date 04/03/19 Treatment Diagnosis s/pL hip removal of int fixation & excisional I&D; diff in walking Onset Date 03/30/19 Weight Bearing Status Weight Bearing Status Non-Weight Bearing Allowed Weight Bearing Amount (enter % LLE: NWB or #) (%) M3 PT-IP Subjective Start: 03/31/19 13:06 Freq: NEEDED Status: Active Protocol: Document 04/07/19 12:45 AB (Rec: 04/07/19 14:01 AB [id number]) Subjective Physical Therapy Visit Type Type Treatment Note Visit Start Time 12:45 Visit Stop Time 13:10 Total Visit Minutes 25 Number of OIL CHANGER Visits 0 Physical Therapy Visit Comments Patient Comments pt requesting to go back to bed per nurse Therapy Pain Assessment Pain When Pain Assessed At Rest Pain Present Pain Present Pain Reported Location Left Hip Scale Used not stated Pain Management Techniques Re-positioning Timing of Activity with Medications M4 PT-IP Mobility and Gait Start: 03/31/19 13:06 Freq: NEEDED Status: Active Protocol: Document 04/07/19 12:45 AB (Rec: 04/07/19 14:01 AB [id number]) PT-Bed Mobility Assessment Sit to Supine Sit to Supine Maximum Assistance 2 Person Assistance Scooting Scooting to Edge of Bed Maximum Assistance PT-Transfer Assessment Sit to and From Stand Sit to and from Stand Moderate Assistance 2 Person Assistance Use of Upper Extremities Equipment Transfer Assistive Device Gait Belt Front Wheeled Walker Orthotic/Prosthetic Devices or Brace: No Transfers Transfer Destination Bed Transfer Technique Stand Pivot Transfer Ability Level of Assist Maximum Assistance 2 Person Assistance Use of Upper Extremities Comments Mobility Comments pt requires max A to maintain NWB on LLE. M5 PT-IP Objective Assessments Start: 03/31/19 13:06 Freq: NEEDED Status: Active Protocol: Document 04/03/19 15:00 AB (Rec: 04/03/19 15:50 AB [id number]) Orientation Orientation/Cognition Level of Alertness Alert Safety Awareness Decreased Safety Awareness Memory Description Short Term Impaired Gross Range of Motion Lower Extremity ROM Assessment Left Impaired Impairments L hip and knee tightness noted Strength Lower Extremity Strength Assessment Bilaterally Impaired Comments Strength Comments RLE: 4-/5 LLE: 3-/5 M6 PT-IP Treatment Start: 03/31/19 13:06 Freq: NEEDED Status: Active Protocol: Document 04/07/19 12:45 AB (Rec: 04/07/19 14:01 AB [id number]) Physical Therapy Treatment Education Education Provided Precautions Weight Bearing Status Safety M7 PT-IP Assessment and Plan Start: 03/31/19 13:06 Freq: NEEDED Status: Active Protocol: Document 04/07/19 12:45 AB (Rec: 04/07/19 14:01 AB [id number]) PT Summary Assessment and Plan Potential Rehabilitation Potential Fair Summary Impairments Pain ROM Strength Balance Coordination Sensation Tone Cognition Bed Mobility Transfers Gait Activity Tolerance Progress Towards Goals Slow Progress due to Pain Slow Progress due to Medical Issues Assessment Summary pt continues to require 2 person assist with mobility and will need SNF rehab to improve strength and mobility. Goals Bed Mobility Goal Contact Guard Assistance Transfer Goal Contact Guard Assistance Front Wheeled Walker Gait Goal Contact Guard Assistance Front Wheel Walker Gait Distance 50 Days to Meet Goals 10 Frequency of Treatment Frequency Of Treatment Twice a Day Treatment Plan Physical Therapy Treatment Plan Bed Mobility Training Transfer Training Gait Training Therapeutic Exercise Balance Retraining Post Op Education Discharge Planning Hot or Cold Pack Neuromuscular Re-ed Coordination Retraining Manual Therapy Recommendations To Nursing Amount of Assist Needed Mechanical Lift Discharge Recommendations PT Discharge Recommendations SNF Rehab
--- NOTE | 2019-04-07 14:02 | PC.NURSE ---
Pt offered lunch tray 3x by myself, and at least once by RN. Pt refusing lunch, asked to leave tray on counter. CM
[2019-04-07 15:15] VITALS: BP 145/67; PULSE 80; RESP 18; TEMP 36.6; O2SAT 100
[2019-04-07] MEDS: ENOXAPARIN 40 MG/0.4 ML SYRINGE SUBCUT (17:23)
[2019-04-07 19:55] VITALS: BP 140/60; PULSE 80; RESP 16; TEMP 37.1; O2SAT 99
[2019-04-08 00:22] VITALS: BP 109/53; PULSE 78; RESP 18; TEMP 36.7; O2SAT 95
[2019-04-08] MEDS: HYDROCODONE/ACET 5/325 TABLET 2 TAB PO ×6 (01:43→22:47)
[2019-04-08] MEDS: AMPICILLIN/SULBACTAM 3 GM 3 GM in SODIUM CHLORIDE 0.9% 100 ML IV ×4 (03:00→20:42)
[2019-04-08 05:05] VITALS: BP 129/62; PULSE 82; RESP 17; TEMP 36.7; O2SAT 96
[2019-04-08 05:46] LABS: Blood Urea Nitrogen 10 mg/dL (7-17); Calcium 8.3 mg/dL (8.4-10.2); Carbon Dioxide 28 mmol/L (22-32); Chloride 104 mmol/L (98-107); Estimated Glomerular Filt Rate > 60.0 mL/min (>60); Glucose 93 mg/dL (80-110); HEMOLYSIS < 15 (0-50); Potassium 3.8 mmol/L (3.4-5.1); Sodium 136 mmol/L (137-145)
[2019-04-08] MEDS: LEVOTHYROXINE 75 MCG TABLET PO (05:47)
[2019-04-08 05:48] LABS: Add Manual Diff / Slide Review NO; Basophils Absolute Auto 100 /uL (0-100); Basophils Percent Auto 0.6 % (0-2); Eosinophils Absolute Auto 600 /uL (0-450); Eosinophils Percent Auto 4.7 % (2-4); Hematocrit 21.6 % (36-46); Hemoglobin 7.3 g/dL (12.0-16.0); Lymphocytes Absolute Auto 2300 /uL (1100-4500); Mean Corpuscular Hemoglobin 32.4 PG (26-34); Mean Corpuscular Volume 95.4 fL (80-100); Monocytes Absolute Auto 1000 /uL (0-900); Monocytes Percent Auto 7.7 % (3-14); Neutrophils Absolute Auto 8700 /uL (1500-7000); Platelet Count 594 X10^3/uL (150-400); Red Blood Cell Count 2.27 X10^6/uL (4.0-5.2); Red Cell Distribution Width 14.4 % (11.6-14.8); White Blood Cell Count 12.7 X10^3/uL (4.5-11.0)
[2019-04-08 08:00] VITALS: BP 152/72; PULSE 88; RESP 18; TEMP 36.9; O2SAT 97
--- NOTE | 2019-04-08 08:02 | DI.RAD.S_ITS ---
PROCEDURE: XR HIP W PEL IF DONE LT 2V INDICATIONS: left hip infection TECHNIQUE: AP pelvis with lateral view(s) of the left hip(s). COMPARISON: [facility], CR, XR HIP W PEL IF DONE LT 2V, 04/02/2019, 16:14. FINDINGS: Bones: Comminuted intertrochanteric fracture of left femur is again seen with superior migration of femoral shaft in relation to femoral head unchanged from previous study. No new fracture or dislocation. Bilateral hip joint osteophyte is seen.. Pelvic ring appears intact. No suspicious bony lesions. Soft tissues: The visualized bowel gas pattern is normal. No suspicious soft tissue calcifications. There is minimal removal of surgical drain. Skin anna are again seen along lateral thigh. IMPRESSION: Interval removal of surgical drain. Comminuted left intertrochanteric fracture. Stable pelvic and hip alignment. No new fracture or dislocation. No obvious bone erosion is seen. Dictated by: Dragan Maria M.D. on 04/08/2019 at 9:36 Approved by: Dragan Maria M.D. on 04/08/2019 at 9:37
[2019-04-08] MEDS: LISINOPRIL 20 MG TABLET PO (09:52)
[2019-04-08] MEDS: METOPROLOL IR 25 MG TABLET 12.5 MG PO ×2 (09:52→20:43)
[2019-04-08] MEDS: ASCORBIC ACID 500 MG TABLET PO ×2 (09:52→20:42)
[2019-04-08] MEDS: THIAMINE 100 MG TABLET PO (09:52)
[2019-04-08] MEDS: DOCUSATE 100 MG CAPSULE PO ×2 (09:53→20:42)
[2019-04-08] MEDS: AMLODIPINE 5 MG TABLET PO (09:53)
[2019-04-08] MEDS: PRENATAL VIT,CALC/IRON/FOLIC 1 TABLET 1 TAB PO (09:53)
[2019-04-08] MEDS: SODIUM CHLORIDE 0.9% FLUSH 10 ML IV ×2 (10:00→20:43)
--- NOTE | 2019-04-08 10:01 | PT.IPTN ---
Current Diagnoses Breakdown (mechanical) of internal fixation device of left femur, initial encounter (03/30/19) Personal history of (healed) traumatic fracture (03/30/19) Presence of other bone and tendon implants (03/30/19) Surgery Performed Operation Date: 04/02/19 12:15 Actual Procedures p Removal Hardware prior ORIF, Excisional Irrigation and Debridement, Left Hip(Left) - Linda Baer MD Physical Therapy Treatment Note Notes Most recent labs show HCT 21, HGB 7. This is below the cut off of 25% and 8, respectively , that is needed to be able to participate in therapies. Will hold today and monitor pt 's status.
--- NOTE | 2019-04-08 10:11 | CM.DPC ---
Addendum entered by Aure Gomez LPN 04/08/19 10:24: [facility] will be following at [facility] all week with exception of Monday 04/09. Case on that day will be assigned to another CM, likely Radha Zeng. Addendum entered by Aure Gomez LPN 04/08/19 10:23: Discussed POC with Debo/Mark. She confirms no barrier to the expected snf auth for [facility], only noting that pt needs to be medically stable for the snf setting at at this point it appears that she is not. Original Note: DCP: continued: Case again received and EMR for last few days if reviewed. See that Dr. Berg was following for the orthopedic team over the weekend and that she did discuss case with hospitalist Dr. Higginbotham and with ID physician Dr. Rodgers. It appears that the POC is still unfolding. PT was unable to work with pt yesterday as her labs were such that PT protocal limits same. P: check in with pt and continue to follow. Plan remains [facility] when stable for same. [facility] will fax updated information to [facility] in support of the snf auth. Will check in with [facility] and [facility] CM Radha or Debo today.
[2019-04-08 11:26] VITALS: BP 141/75; PULSE 76; RESP 18; TEMP 37; O2SAT 98
--- NOTE | 2019-04-08 11:33 | PC.NURSE ---
Shift 7a-3p Report received, care assumed. Pt. A&Ox3. Pain well-controlled. Discussed importance of getting OOB whenever possible. Pt agreeable to using BSC rather than bedpan. 2-person assist with walker, NWB to LLE. Worked with OT.
--- NOTE | 2019-04-08 11:58 | OT.IP.TRT ---
Current Diagnoses Breakdown (mechanical) of internal fixation device of left femur, initial encounter (03/30/19) Personal history of (healed) traumatic fracture (03/30/19) Presence of other bone and tendon implants (03/30/19) Surgery Performed Operation Date: 04/02/19 12:15 Actual Procedures p Removal Hardware prior ORIF, Excisional Irrigation and Debridement, Left Hip(Left) - Linda Baer MD Occupational Therapy Treatment Note M2 OT-IP Current Condition Start: 04/03/19 15:44 Freq: Status: Active Protocol: Document 04/03/19 15:36 PJM (Rec: 04/03/19 16:03 PJM [email or web address]) Occupational Therapy Current Condition Current Condition Evaluation Date 04/03/19 Treatment Diagnosis decr'd self care, mobility s/p hardware failure L hip ORIF w /infection Diagnosis Onset Date 04/02/19 Post Operative Precautions Other Precautions contact; 2 hip drains+SANAM drain Weight Bearing Status Weight Bearing Status Non-Weight Bearing Allowed Weight Bearing Amount (enter % LLE or #) (%) M3 OT- IP Subjective and Pain Start: 04/03/19 15:44 Freq: Status: Active Protocol: Document 04/08/19 11:48 CCC (Rec: 04/08/19 11:58 CCC [email or web address]) OT- Subjective Occupational Therapy Visit Type Type Treatment Note Visit Start Time 10:45 Visit Stop Time 11:03 Total Visit Minutes 18 Occupational Therapy Visit Comments Patient Comments Pt states has already gotten up twice with nursing for BSC. Touched base with nursing to call therapy or use of bed miller for toileting needs as pt is a difficult transfer due to NBW for LLE and now Hgb 7.3, Hct 21.6. However per nursing pt has not been symptomatic and has not complaining of being dizzy or light headed when up. OT Pain Assessment Pain When Pain Assessed At Rest Pain Present Pain Present Pain Reported M4 OT- IP ADL's Start: 04/03/19 15:44 Freq: Status: Active Protocol: Document 04/08/19 11:48 CCC (Rec: 04/08/19 11:58 CCC [email or web address]) OT ADL-Grooming General Evaluation Grooming Ability Standby Assistance Comments OT Grooming Comments After set-up , pt able to do all grooming needs from the bed with tray table in front of her. OT ADL-Oral Care General Eval Oral Care Ability Independent M5 OT- IP IADL's Start: 04/03/19 15:44 Freq: Status: Active Protocol: Document 04/03/19 15:36 PJM (Rec: 04/03/19 16:03 PJM [email or web address]) OT-Instrumental Activities of Daily Living Deficits IADL Deficits Identified Deficits Home Safety Awareness Awareness of Need for Assistance at Home Good Awareness Ability to Problem Solve Emergency Able to Problem Solve Situations Medication Management Medication Management No Deficits Identified Money Management Money Management No Deficits Identified Meal Preparation Meal Preparation Caregiver Provides Assist Meal Preparation Comments pt plans to have friend stay with her overnight to assist with evening meal and breakfast Pumper Hand Pumper Hand Caregiver Provides Assist Pumper Hand Comments pt will need assist with all consumer safety officer Driving Driving Caregiver Provides Assist Driving Comments pt will need assist until mobility improves M6 OT- IP Functional Cognition Start: 04/03/19 15:44 Freq: Status: Active Protocol: Document 04/08/19 11:48 CCC (Rec: 04/08/19 11:58 CCC [email or web address]) Cognitive Factors Limiting Selfcare Function Cognitive Ability Level of Alertness Alert Patient Orientation Name Age Birthday Month Date Year Day of Week Place Situation Attention Span Ability Capable of Focused Attention Capable of Sustained Attention Ability to Follow Commands Able to Follow One Step Commands Memory Description Short Term Impaired Safety Awareness Underestimates Need for Assistance Problem Solving Ability Needs Assist to Identify Solutions Cognitive Tests SLUMS Pt states feels that pain medication make her groogy and states prior had some diffculty with STM Pt scored 24/30 which implies mild cognitive impairment, however pt attributes to her groogy thinking to pain medication and has good awareness of needs. 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 Cognitive Comments Cognitive Assessment Comments Pt seems aware of deficits for cognition especially when taking pain medications. M7 OT- IP Mobility and Balance Start: 04/03/19 15:44 Freq: Status: Active Protocol: Document 04/06/19 16:12 CGR (Rec: 04/06/19 16:19 CGR [email or web address]) OT- Bed Mobility Assessment Supine to Sit Supine to Sit Assist Moderate Assistance 2 Person Assistance Sit to Supine Sit to Supine Assist Moderate Assistance 2 Person Assistance OT-Transfer Assessment Sit to and From Stand Sit to and from Stand Moderate Assistance 2 Person Assistance Transfers Transfer Ability Moderate Assistance 2 Person Assistance Technique Transfer Destination Bedside Commode Transfer Technique Stand Step Pivot Devices Transfer Assistive Devices Gait Belt Front Wheeled Walker Comments Mobility Comments Pt able to pivot on her RLE but having difficulty maintaining NWB to the LLE. OT- Balance Assessment Sitting Balance and Reactions Static Sitting Balance Ability Good Dynamic Sitting Balance Ability Fair Standing Balance and Reactions Static Standing Balance Ability Poor Dynamic Standing Balance Ability Poor M8 OT- IP Objective Assessments Start: 04/03/19 15:44 Freq: Status: Active Protocol: Document 04/03/19 15:36 PJM (Rec: 04/03/19 16:03 PJM [email or web address]) OT Gross Range of Motion Upper Extremity Range of Motion Assessment Within Functional Limits OT Strength Upper Extremity Strength Assessment Within Functional Limits Hand Clam Grower Strength Hand Dominance Right OT- Coordination Assessment Comments Coordination Comments BUE WFL OT-Muscle Tone Assessment Muscle Tone WNL Yes OT Sensation Assessment Comments Summary Comments BUE WNL per pt M9 OT- IP Assessment and Plan Start: 04/03/19 15:44 Freq: Status: Active Protocol: Document 04/08/19 11:48 CCC (Rec: 04/08/19 11:58 CCC [email or web address]) OT Summary Assessment and Plan Potential Rehabilitation Potential Good Analytic Complexity at Evaluation Low Summary OT Impairments Pain Functional Mobility Grooming Dressing Toileting Bathing Toilet Transfers Shower Transfers Progress Towards Goals Progressing Toward Goals Assessment Summary Pt will benefit form skilled rehab when medically stable. Pt has been very cooperative and pleasant for therapy. Goals Grooming Goal Independent Dressing Goal Minimal Assistance Toileting Goal Moderate Assistance Bathing Goal Minimal Assistance Toilet Transfer Goal Moderate Assistance Bedside Commode Patient/Caregiver Education Goal Demonstrate Post-Op Precautions Demonstrate Energy Conservation and Pacing OT-Other Goals Grooming to be done seated in chair after set up. Bathing goal is for seated upper body sponge bath Days to Meet Goals 5 Frequency of Treatment Frequency Of Treatment Once a Day Treatment Plan OT Treatment Plan ADL Training Functional Mobility Patient/Family Education Discharge Planning Discharge Recommendations OT Discharge Recommendations SNF Rehab Home Equipment Needs to be determined in next rehab setting pending progress
--- NOTE | 2019-04-08 12:49 | PM.PNPO.1 ---
Subjective Date Patient Seen: 04/08/19 Time Patient Seen: 11:50 Interval history: Patient examined at the bedside with Dr. Baer. Postop day 6 for I and D removal hardware left hip infection. Patient had intertrochanteric fracture with operative fixation as she sustained a failure of hardware loss of reduction and infection was found at the revision attempt. She still has significant pain with motion but otherwise well controlled. She is voiding and has had a bowel movement. She denies any fevers or chills. Exam Vital Signs (past 8 hours): - 04/08/19 05:05 04/08/19 08:00 04/08/19 11:26 Temperature 98.0 F 98.4 F 98.6 F Pulse Rate 82 88 76 Respiratory Rate 17 18 18 Blood Pressure 129/62 152/72 H 141/75 H Pulse Oximetry 96 97 98 Fraction of Inspired Oxygen 21 Oxygen Delivery Method Room Air Oxygen Flow Rate 0 Narrative Exam Narrative: 73 year old female resting in bed, in no acute distress. Alert and oriented. Dressing in place over left hip is clean, dry, and intact. No palpable pockets. Intact ankle dorsiflexion and extension. Sensation intact to light touch in distal extremity. Palpable pulse. Soft compressible calves. Objective Labs Result Diagrams: 04/08/19 05:03 04/08/19 05:03 Labs: Laboratory Results - last 24 hr 04/08/19 04/08/19 05:03 05:03 WBC 12.7 H RBC 2.27 L Hgb 7.3 L Hct 21.6 L MCV 95.4 MCH 32.4 MCHC 34.0 RDW 14.4 Plt Count 594 H Neut % (Auto) 69.0 Lymph % (Auto) 18.0 L [place] % (Auto) 7.7 Eos % (Auto) 4.7 H Baso % (Auto) 0.6 Neut # (Auto) 8700 H Lymph # (Auto) 2300 [place] # (Auto) 1000 H Eos # (Auto) 600 H Baso # (Auto) 100 Sodium 136 L Potassium 3.8 Chloride 104 Carbon Dioxide 28 BUN 10 Creatinine 0.40 L Estimated GFR > 60.0 BUN/Creatinine Ratio 25.0 H Glucose 93 Calcium 8.3 L Assessment & Plan Post-op Postoperative Procedures Operation Date: 04/02/19 12:15 Actual Procedures Side Surgeon p Removal Hardware prior ORIF, Excisional Irrigation and Debridement, Left Hip Left Linda Leobardo Baer MD Radiographs of the left hip ordered and reviewed with Dr. Baer. No sign of joint breakdown that would be suspicious for worsening infection. WBC this morning dropped in comparison to yesterday. Current plan is to continue Unasyn. Will consider further consult with Dr. Rodgers from [place] for possible changes in regimen. Hemoglobin and hematocrit remain low but stable, patient still asymptomatic. Continue iron and vitamin C supplementation. Consider transfusion if she becomes symptomatic. She is to remain nonweight bearing on the operative extremity. Possible discharge to SNF tomorrow. Quality VTE Deep Vein Thrombosis/Pulmonary Embolism Present on Admission: No
--- NOTE | 2019-04-08 12:54 | P.PN_ITS ---
Subjective Date Patient Seen: 04/08/19 Time Patient Seen: 11:50 Interval history: Patient examined at the bedside with Dr. Baer. Postop day 6 for I and D removal hardware left hip infection. Patient had intertrochanteric fracture with operative fixation as she sustained a failure of hardware loss of reduction and infection was found at the revision attempt. She still has significant pain with motion but otherwise well controlled. She is voiding and has had a bowel movement. She denies any fevers or chills. Exam Vital Signs (past 8 hours): - 04/08/19 05:05 04/08/19 08:00 04/08/19 11:26 Temperature 98.0 F 98.4 F 98.6 F Pulse Rate 82 88 76 Respiratory Rate 17 18 18 Blood Pressure 129/62 152/72 H 141/75 H Pulse Oximetry 96 97 98 Fraction of Inspired Oxygen 21 Oxygen Delivery Method Room Air Oxygen Flow Rate 0 Narrative Exam Narrative: 73 year old female resting in bed, in no acute distress. Alert and oriented. Dressing in place over left hip is clean, dry, and intact. No palpable pockets. Intact ankle dorsiflexion and extension. Sensation intact to light touch in distal extremity. Palpable pulse. Soft compressible calves. Objective Labs Result Diagrams: 04/08/19 05:03 04/08/19 05:03 Labs: Laboratory Results - last 24 hr 04/08/19 04/08/19 05:03 05:03 WBC 12.7 H RBC 2.27 L Hgb 7.3 L Hct 21.6 L MCV 95.4 MCH 32.4 MCHC 34.0 RDW 14.4 Plt Count 594 H Neut % (Auto) 69.0 Lymph % (Auto) 18.0 L [place] % (Auto) 7.7 Eos % (Auto) 4.7 H Baso % (Auto) 0.6 Neut # (Auto) 8700 H Lymph # (Auto) 2300 [place] # (Auto) 1000 H Eos # (Auto) 600 H Baso # (Auto) 100 Sodium 136 L Potassium 3.8 Chloride 104 Carbon Dioxide 28 BUN 10 Creatinine 0.40 L Estimated GFR > 60.0 BUN/Creatinine Ratio 25.0 H Glucose 93 Calcium 8.3 L Assessment & Plan Post-op Postoperative Procedures Operation Date: 04/02/19 12:15 Actual Procedures Side Surgeon p Removal Hardware prior ORIF, Excisional Irrigation and Debridement, Left Hip Left Linda Leobardo Baer MD Radiographs of the left hip ordered and reviewed with Dr. Baer. No sign of joint breakdown that would be suspicious for worsening infection. WBC this morning dropped in comparison to yesterday. Current plan is to continue Unasyn. Will consider further consult with Dr. Rodgers from [place] for possible changes in regimen. Hemoglobin and hematocrit remain low but stable, patient still asymptomatic. Continue iron and vitamin C supplementation. Consider transfusion if she becomes symptomatic. She is to remain nonweight bearing on the operative extremity. Possible discharge to SNF tomorrow. Quality VTE Deep Vein Thrombosis/Pulmonary Embolism Present on Admission: No
[2019-04-08] MEDS: SODIUM CHLORIDE 0.9% 250 ML 100 ML IV (15:04)
[2019-04-08 15:28] VITALS: BP 139/61; PULSE 80; RESP 18; TEMP 36.3; O2SAT 97
[2019-04-08] MEDS: ENOXAPARIN 40 MG/0.4 ML SYRINGE SUBCUT (18:45)
[2019-04-08 19:41] VITALS: BP 123/57; PULSE 80; RESP 18; TEMP 37.2; O2SAT 96
[2019-04-09 00:28] VITALS: BP 126/58; PULSE 74; RESP 16; TEMP 36.9; O2SAT 97
[2019-04-09] MEDS: SODIUM CHLORIDE 0.9% 250 ML 21 ML IV (02:48)
[2019-04-09] MEDS: SODIUM CHLORIDE 0.9% FLUSH 10 ML IV ×2 (02:49→10:47)
[2019-04-09] MEDS: AMPICILLIN/SULBACTAM 3 GM 3 GM in SODIUM CHLORIDE 0.9% 100 ML IV ×3 (02:49→14:51)
[2019-04-09] MEDS: HYDROCODONE/ACET 5/325 TABLET 2 TAB PO ×3 (02:50→14:51)
[2019-04-09 03:05] VITALS: BP 140/72; PULSE 77; RESP 16; TEMP 36.9; O2SAT 99
[2019-04-09 05:25] LABS: Add Manual Diff / Slide Review NO; Basophils Absolute Auto 100 /uL (0-100); Basophils Percent Auto 0.6 % (0-2); Eosinophils Absolute Auto 400 /uL (0-450); Eosinophils Percent Auto 3.4 % (2-4); Hematocrit 21.4 % (36-46); Hemoglobin 7.3 g/dL (12.0-16.0); Lymphocytes Absolute Auto 2200 /uL (1100-4500); Lymphocytes Percent Auto 16.4 % (25-40); Mean Corpuscular HGB Conc 33.9 % (30-36); Mean Corpuscular Hemoglobin 32.2 PG (26-34); Mean Corpuscular Volume 94.9 fL (80-100); Monocytes Absolute Auto 800 /uL (0-900); Monocytes Percent Auto 5.8 % (3-14); Neutrophils Absolute Auto 9700 /uL (1500-7000); Neutrophils Percent Auto 73.8 % (50-75); Platelet Count 606 X10^3/uL (150-400); Red Blood Cell Count 2.26 X10^6/uL (4.0-5.2); Red Cell Distribution Width 14.7 % (11.6-14.8); White Blood Cell Count 13.1 X10^3/uL (4.5-11.0)
[2019-04-09] MEDS: LEVOTHYROXINE 75 MCG TABLET PO (06:03)
[2019-04-09] MEDS: OXYCODONE IR 5 MG TABLET PO (06:53)
[2019-04-09 07:22] VITALS: BP 131/62; PULSE 75; RESP 16; TEMP 36.6; O2SAT 99
[2019-04-09 08:33] LABS: Bacteria Det by PCR Univ WA SEE SEPARATE REPORTS
--- NOTE | 2019-04-09 09:17 | PC.NURSE ---
I was told in shift report that the patient was a 2 person assist with front wheel walker and gait belt to the bedside commode. I attempted to do this with the help of MONA Wadsworth. Patient was telling us what we needed to do which was not safe for staff nor the patient. She wanted someone elses foot underneath her left foot from the side in between the walker legs and was stating that I needed to let go of her (the gait belt). I told her I could not let go of her because she is a fall risk and I need to hold onto the gait belt. After finally getting her to the bedside commode I went and talked to physical and occupational therapy and they told me that she is a mechanical lift for us and 2 person assist with them. I went in to clean the patient up with physical and occupational therapy, she stated that she was done using the commode. Physical and occupational therapy stood her up while I cleaned her. Patient was shaky and stated that she needed to sit down, I told her that she could go ahead and sit down take moment and when she was ready she could stand back up so I could finish cleaning her up. Patient told me no I need to sit in the chair, I tried to explain to her that she still had bowel on her and she told me that was enough and she did not care she was ready to sit in the chair. I mentioned to the patient that it is not good to sit soiled or with bowel on her skin because it can cause breakdown. She said she was going to the chair. From this point physical and occupational therapy transfered her to the chair and told me she would be a mechanical devin lift.
--- NOTE | 2019-04-09 09:23 | PT.IPTN ---
Current Diagnoses Breakdown (mechanical) of internal fixation device of left femur, initial encounter (03/30/19) Personal history of (healed) traumatic fracture (03/30/19) Presence of other bone and tendon implants (03/30/19) Surgery Performed Operation Date: 04/02/19 12:15 Actual Procedures p Removal Hardware prior ORIF, Excisional Irrigation and Debridement, Left Hip(Left) - Linda Baer MD Physical Therapy Treatment Note M2 PT-IP Current Condition Start: 03/31/19 13:06 Freq: NEEDED Status: Active Protocol: Document 04/03/19 15:00 AB (Rec: 04/03/19 15:53 AB [id number]) Physical Therapy Current Condition Current Condition Evaluation Date 04/03/19 Treatment Diagnosis s/pL hip removal of int fixation & excisional I&D; diff in walking Onset Date 03/30/19 Weight Bearing Status Weight Bearing Status Non-Weight Bearing Allowed Weight Bearing Amount (enter % LLE: NWB or #) (%) M3 PT-IP Subjective Start: 03/31/19 13:06 Freq: NEEDED Status: Active Protocol: Document 04/09/19 09:00 CLB (Rec: 04/09/19 09:23 CLB [id number]) Subjective Physical Therapy Visit Type Type Treatment Note Visit Start Time 09:00 Visit Stop Time 09:15 Total Visit Minutes 15 Number of [employer]ER Visits 1 Physical Therapy Visit Comments Patient Comments Pt on BSC wanting to go to chair. Therapy Pain Assessment Pain When Pain Assessed At Rest Pain Present Pain Present Pain Reported Location Left Hip Scale Used not stated Pain Management Techniques Re-positioning Timing of Activity with Medications M4 PT-IP Mobility and Gait Start: 03/31/19 13:06 Freq: NEEDED Status: Active Protocol: Document 04/09/19 09:00 CLB (Rec: 04/09/19 09:23 CLB [id number]) PT-Transfer Assessment Sit to and From Stand Sit to and from Stand Moderate Assistance 2 Person Assistance Use of Upper Extremities Equipment Transfer Assistive Device Gait Belt Front Wheeled Walker Orthotic/Prosthetic Devices or Brace: No Transfers Transfer Destination Chair Transfer Ability Level of Assist Maximum Assistance 2 Person Assistance Use of Upper Extremities Comments Mobility Comments Pt requires max A to maintain NWB on LLE during pericare after BM by TRAVEL DIRECTOR. BSC was moved and the chair was placed behine pt. M5 PT-IP Objective Assessments Start: 03/31/19 13:06 Freq: NEEDED Status: Active Protocol: Document 04/03/19 15:00 AB (Rec: 04/03/19 15:50 AB [id number]) Orientation Orientation/Cognition Level of Alertness Alert Safety Awareness Decreased Safety Awareness Memory Description Short Term Impaired Gross Range of Motion Lower Extremity ROM Assessment Left Impaired Impairments L hip and knee tightness noted Strength Lower Extremity Strength Assessment Bilaterally Impaired Comments Strength Comments RLE: 4-/5 LLE: 3-/5 M6 PT-IP Treatment Start: 03/31/19 13:06 Freq: NEEDED Status: Active Protocol: Document 04/07/19 12:45 AB (Rec: 04/07/19 14:01 AB [id number]) Physical Therapy Treatment Education Education Provided Precautions Weight Bearing Status Safety M7 PT-IP Assessment and Plan Start: 03/31/19 13:06 Freq: NEEDED Status: Active Protocol: Document 04/09/19 09:00 CLB (Rec: 04/09/19 09:23 CLB [id number]) PT Summary Assessment and Plan Summary Impairments Pain ROM Strength Balance Coordination Sensation Tone Cognition Bed Mobility Transfers Gait Activity Tolerance Progress Towards Goals Slow Progress due to Pain Slow Progress due to Medical Issues Assessment Summary Pt required Mod A x2 sit-stand and Mod A x2 for standing balance during pericare. Pt needing tactile cues to assist hand to chair before sitting. Pt BP in sitting 134/67. Pt BP in sitting after standing for pericare 120/57. Goals Bed Mobility Goal Contact Guard Assistance Transfer Goal Contact Guard Assistance Front Wheeled Walker Gait Goal Contact Guard Assistance Front Wheel Walker Gait Distance 50 Days to Meet Goals 10 Frequency of Treatment Frequency Of Treatment Twice a Day Treatment Plan Physical Therapy Treatment Plan Bed Mobility Training Transfer Training Gait Training Therapeutic Exercise Balance Retraining Post Op Education Discharge Planning Hot or Cold Pack Neuromuscular Re-ed Coordination Retraining Manual Therapy Recommendations To Nursing Amount of Assist Needed Mechanical Lift Discharge Recommendations PT Discharge Recommendations SNF Rehab
[2019-04-09] MEDS: DOCUSATE 100 MG CAPSULE PO (09:35)
[2019-04-09] MEDS: METOPROLOL IR 25 MG TABLET 12.5 MG PO (09:36)
[2019-04-09] MEDS: CHOLECALCIFEROL (VITAMIN D3) 1,000 UNIT TABLET 2000 UNIT PO (09:36)
[2019-04-09] MEDS: PRENATAL VIT,CALC/IRON/FOLIC 1 TABLET 1 TAB PO (09:36)
[2019-04-09] MEDS: THIAMINE 100 MG TABLET PO (09:36)
[2019-04-09] MEDS: LISINOPRIL 20 MG TABLET PO (09:36)
[2019-04-09] MEDS: AMLODIPINE 5 MG TABLET PO (09:37)
[2019-04-09] MEDS: ASCORBIC ACID 500 MG TABLET PO (09:37)
--- NOTE | 2019-04-09 11:12 | OT.IP.TRT ---
Current Diagnoses Breakdown (mechanical) of internal fixation device of left femur, initial encounter (03/30/19) Personal history of (healed) traumatic fracture (03/30/19) Presence of other bone and tendon implants (03/30/19) Surgery Performed Operation Date: 04/02/19 12:15 Actual Procedures p Removal Hardware prior ORIF, Excisional Irrigation and Debridement, Left Hip(Left) - Linda Baer MD Occupational Therapy Treatment Note M2 OT-IP Current Condition Start: 04/03/19 15:44 Freq: Status: Active Protocol: Document 04/03/19 15:36 [facility] (Rec: 04/03/19 16:03 [facility] [id number]) Occupational Therapy Current Condition Current Condition Evaluation Date 04/03/19 Treatment Diagnosis decr'd self care, mobility s/p hardware failure L hip ORIF w /infection Diagnosis Onset Date 04/02/19 Post Operative Precautions Other Precautions contact; 2 hip drains+SANAM drain Weight Bearing Status Weight Bearing Status Non-Weight Bearing Allowed Weight Bearing Amount (enter % LLE or #) (%) M3 OT- IP Subjective and Pain Start: 04/03/19 15:44 Freq: Status: Active Protocol: Document 04/09/19 11:01 [facility] (Rec: 04/09/19 11:12 [facility] [id number]) OT- Subjective Occupational Therapy Visit Type Type Treatment Note Visit Start Time 09:00 Visit Stop Time 09:25 Total Visit Minutes 25 Notes PT present for transfer to recliner. Occupational Therapy Visit Comments Patient Comments Pt wanting to get off BSC and wanting to do grooming needs. OT Pain Assessment Pain When Pain Assessed At Rest Pain Present Pain Present Denied Pain M4 OT- IP ADL's Start: 04/03/19 15:44 Freq: Status: Active Protocol: Document 04/09/19 11:01 [facility] (Rec: 04/09/19 11:12 [facility] [id number]) OT ADL-Grooming General Evaluation Grooming Ability Standby Assistance Areas Needing Assistance Retrieving/Set-up of Grooming Items Comments OT Grooming Comments set-up while sitting at recliner for all grooming needs. OT ADL-Toileting General Evaluation Toileting Ability Maximum Assistance Areas Needing Assistance Perform Perineal Hygiene Comments OT Toileting Comments MODA x 2 to stand with FWW while AUTOMATIC THREAD WINDER assisted with all hygiene needs. M5 OT- IP IADL's Start: 04/03/19 15:44 Freq: Status: Active Protocol: Document 04/03/19 15:36 [facility] (Rec: 04/03/19 16:03 [facility] [id number]) OT-Instrumental Activities of Daily Living Deficits IADL Deficits Identified Deficits Home Safety Awareness Awareness of Need for Assistance at Home Good Awareness Ability to Problem Solve Emergency Able to Problem Solve Situations Medication Management Medication Management No Deficits Identified Money Management Money Management No Deficits Identified Meal Preparation Meal Preparation Caregiver Provides Assist Meal Preparation Comments pt plans to have friend stay with her overnight to assist with evening meal and breakfast Electrician Telephone Electrician Telephone Caregiver Provides Assist Electrician Telephone Comments pt will need assist with all mobile application architect Driving Driving Caregiver Provides Assist Driving Comments pt will need assist until mobility improves M6 OT- IP Functional Cognition Start: 04/03/19 15:44 Freq: Status: Active Protocol: Document 04/09/19 11:01 [facility] (Rec: 04/09/19 11:12 [facility] [email or web address]) Cognitive Factors Limiting Selfcare Function Cognitive Ability Level of Alertness Alert Patient Orientation Name Age Birthday Month Date Year Day of Week Place Situation Attention Span Ability Capable of Focused Attention Capable of Sustained Attention Ability to Follow Commands Able to Follow One Step Commands Memory Description Short Term Impaired Safety Awareness Underestimates Need for Assistance Problem Solving Ability Needs Assist to Identify Solutions Cognitive Comments Cognitive Assessment Comments Pt still needing safety cues to keep LLE NWB. While AUTOMATIC THREAD WINDER wiping pt still having residue and pt not open to sitting back down to the BSC to try to more to continue the bowel movement. Pt insisting on sitting to the recliner. Therefore stood pt with DYE REEL OPERATOR HELPER MODA X 2 while AUTOMATIC THREAD WINDER able to switch out BSC to recliner. M7 OT- IP Mobility and Balance Start: 04/03/19 15:44 Freq: Status: Active Protocol: Document 04/09/19 11:01 [facility] (Rec: 04/09/19 11:12 [facility] [email or web address]) OT-Transfer Assessment Sit to and From Stand Sit to and from Stand Moderate Assistance 2 Person Assistance Devices Transfer Assistive Devices Gait Belt Front Wheeled Walker OT- Balance Assessment Sitting Balance and Reactions Static Sitting Balance Ability Good Dynamic Sitting Balance Ability Fair Standing Balance and Reactions Static Standing Balance Ability Poor Dynamic Standing Balance Ability Poor M8 OT- IP Objective Assessments Start: 04/03/19 15:44 Freq: Status: Active Protocol: Document 04/03/19 15:36 [facility] (Rec: 04/03/19 16:03 [facility] [id number]) OT Gross Range of Motion Upper Extremity Range of Motion Assessment Within Functional Limits OT Strength Upper Extremity Strength Assessment Within Functional Limits Hand Student Accounts Manager Strength Hand Dominance Right OT- Coordination Assessment Comments Coordination Comments BUE WFL OT-Muscle Tone Assessment Muscle Tone WNL Yes OT Sensation Assessment Comments Summary Comments BUE WNL per pt M9 OT- IP Assessment and Plan Start: 04/03/19 15:44 Freq: Status: Active Protocol: Document 04/09/19 11:01 [facility] (Rec: 04/09/19 11:12 [facility] [email or web address]) OT Summary Assessment and Plan Potential Rehabilitation Potential Good Analytic Complexity at Evaluation Low Summary OT Impairments Pain Functional Mobility Grooming Dressing Toileting Bathing Toilet Transfers Shower Transfers Progress Towards Goals Progressing Toward Goals Assessment Summary Pt will benefit from skilled rehab when medically stable. Pt still needing extensive assist for all ADl's and functional mobility due to LLE NWB. Goals Grooming Goal Independent Dressing Goal Minimal Assistance Toileting Goal Moderate Assistance Bathing Goal Minimal Assistance Toilet Transfer Goal Moderate Assistance Bedside Commode Patient/Caregiver Education Goal Demonstrate Post-Op Precautions Demonstrate Energy Conservation and Pacing OT-Other Goals Bathing goal is for seated upper body sponge bath Days to Meet Goals 7 Frequency of Treatment Frequency Of Treatment Once a Day Treatment Plan OT Treatment Plan ADL Training Functional Mobility Patient/Family Education Discharge Planning Discharge Recommendations OT Discharge Recommendations SNF Rehab Home Equipment Needs to be determined in next rehab setting pending progress
--- NOTE | 2019-04-09 11:14 | PM.DS.1 ---
History of Present Illness Date Patient Seen: 04/09/19 Time Patient Seen: 11:14 Chief complaint: left hip Narrative: Hospital day 11, postop day 7 following left hip hardware removal and I and D of septic joint. Patient has remained stable since surgery. Pain has improved. Her H&H have fluctuated. White count has fluctuated. Patient was to have been discharged on 04/04/2019. Because of her elevated white count patient was started on Unasyn by hospitalist. She remained stable over the weekend. Her wound culture grew group G Streptococcus which was sensitive to all except clindamycin. The specimen was sent to [facility] lab for PCR. Results back today note Streptococcus canis. Dr. Baer the consult to Dr. Rodgers, Infectious Disease, by phone regarding this. He felt patient would do well on ceftriaxone rather than Unasyn. He also did not think patient needed to be transfused as this would affect her healing and infection recovery. Dr. Baer felt the patient could be discharged back to [facility] today on IV antibiotic. Patient feels her pain is improved today. Discharge Providers Date of admission: 03/30/19 14:43 Discharge Date: 04/09/19 Primary care physician: Caprice Burrows PA-C Consults: 03/30/19 13:51 Consult to Orthopedic Surgery Routine Comment: Consulting Provider: Cyrus Cam Reason for consultation: Admission Has provider been notified: Yes 03/30/19 15:37 Consult to Physical Therapy Evaluate & Treat Comment: TDWB LLE Physician Instructions: Evaluate and Treat Consult to Respiratory Therapy Evaluate & Treat Comment: Physician Instructions: Evaluate and treat 04/02/19 17:17 Consult to PICC Line RN Routine Comment: 04/02/19 18:02 Consult to Discharge Planning Routine Comment: Consult to Physical Therapy Evaluate & Treat Comment: NWB left lower extremity Physician Instructions: post op GIA protocol Consult to Respiratory Therapy Evaluate & Treat Comment: Physician Instructions: Evaluate and treat 04/03/19 09:11 Consult to Occupational Therapy Evaluate & Treat Comment: Out of bed as tolerated, nonweightbearing left leg Physician Instructions: Evaluate and treat Consult to Physical Therapy Evaluate & Treat Comment: Physician Instructions: Evaluate and Treat 04/03/19 09:13 Consult to PICC Line RN Routine Comment: Insert PICC line today 04/03/19 11:04 Consult to Physical Therapy Evaluate & Treat Comment: Physician Instructions: Evaluate and Treat Discharge provider: Cam العراقي PA-C Summary Discharge Diagnosis: Status post left hip hardware removal with septic joint. Hospital Course: Patient brought to hospital on 03/30/2019 for left hip problem. She did have some tachycardia issue and this was followed by hospitalist. She underwent left hip surgery for removal of hardware and was found to have purulence joint with I and D done. She was initially placed on vancomycin and ceftriaxone. Wound culture noted group G strep which was sensitive all except clindamycin. Her white count continued to slightly increase and patient was changed to Unasyn on 04/05/2019. Left hip culture PCR done at [facility] lab noted Streptococcus canis. Dr. Baer consulted with Dr. Rodgers, Infectious Disease, who recommended putting patient back on ceftriaxone. Patient was transferred to [facility] on postop day 7. Status at Discharge Cognitive/behavioral status at discharge: oriented Functional status at discharge: bed bound Overall status at discharge: patient is not back to baseline Time Spent with Patient Less than 30 minutes Exam Vital Signs (past 8 hours): - 04/09/19 07:22 Temperature 97.9 F Pulse Rate 75 Respiratory Rate 16 Blood Pressure 131/62 Pulse Oximetry 99 Fraction of Inspired Oxygen 21 Oxygen Delivery Method Room Air Oxygen Flow Rate 0 Narrative Exam Narrative: Alert, oriented in no acute distress resting in bed. Legs. Kt dressing to left hip incision is dry without drainage or inflammation. Good vacuum. Small dressing to Hemovac site is dry without drainage or inflammation. No calf pain or swelling. Pulses symmetrical. Objective Labs Result Diagrams: 04/09/19 04:55 04/08/19 05:03 Labs: Laboratory Results - last 24 hr 04/02/19 04/09/19 14:32 04:55 WBC 13.1 H RBC 2.26 L Hgb 7.3 L Hct 21.4 L MCV 94.9 MCH 32.2 MCHC 33.9 RDW 14.7 Plt Count 606 H Neut % (Auto) 73.8 Lymph % (Auto) 16.4 L [place] % (Auto) 5.8 Eos % (Auto) 3.4 Baso % (Auto) 0.6 Neut # (Auto) 9700 H Lymph # (Auto) 2200 [place] # (Auto) 800 Eos # (Auto) 400 Baso # (Auto) 100 Bacterial Detect (PCR) See separate reports Discharge Plan Discharge Plan Patient Disposition: SNF Transfer to: [facility] Under care of provider: Facility MD or PCP Transportation: Facility vehicle Labs: CBC, BMP, CRP,ESR done 04/15/2019 with results to Linda Baer MD Discharge comment: Patient to be on IV ceftriaxone 2Gmx4 weeks. Toe-touch weight-bearing left leg. Patient needs postop visit with Dr. aBer at [place] office in 1 week. I certify the postop hospital detention care is medically necessary on a continuing basis for any conditions for which he/ she received care during this hospitalization.: Yes The receiving facility has agreed to accept transfer and provide medical treatment.: Yes Discharge Med Rec/Prescriptions Prescriptions: New ceftriaxone 2 gram recon soln 2 gram IV Q24H Qty: 42 RF: 0 Continued aspirin 325 mg tablet 650 mg PO BEDTIME PRN (Reason: Pain, Mild) RF: 0 amlodipine [Norvasc] 5 mg tablet 5 mg PO DAILY Qty: 90 RF: 0 levothyroxine [Synthroid] 75 mcg tablet 75 mcg PO DAILY Qty: 90 RF: 3 olive leaf extract 500 mg 1,000 mg PO DAILY RF: 0 lisinopril-hydrochlorothiazide 20-25 mg tablet 1 tab PO DAILY RF: 0 hydrocodone-acetaminophen 5-325 mg Tablet 1 tab PO Q4HR PRN (Reason: Pain, Mild (1-3)) Qty: 15 RF: 0 ascorbic acid (vitamin C) [Vitamin C] 500 mg Tablet 500 mg PO BID Qty: 30 RF: 0 calcium carbonate 200 mg calcium (500 mg) Tablet,Chewable 1,000 mg PO Q4HR PRN (Reason: Dyspepsia) Qty: 30 RF: 0 docusate sodium [DOK] 100 mg Capsule 100 mg PO BID Qty: 30 RF: 0 cholecalciferol (vitamin D3) [Vitamin D3] 2,000 unit capsule 2,000 unit PO DAILY Qty: 30 RF: 0 ferrous sulfate [iron] 325 mg (65 mg iron) tablet 325 mg PO BID Qty: 60 RF: 0 Follow up/Referrals: Caprice Burrows PA-C [Primary Care Provider] - Discharge Health Status Brief summary of current health status: 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 She was brought to the hospital to have revision total hip arthroplasty done. At the time of surgery she was found to have septic hip joint and hardware was removed. She is being treated with IV antibiotics for 4 weeks and then will have total hip arthroplasty. Multidrug resistant organism: No MDRO MDRO Verified by culture: Yes Provider Discharge Instructions Diet: Diet as Tolerated Liquid consistency: Normal/Thin Food texture: Regular Activity: Toe-touch weight-bearing left leg. She may be up as tolerated. Cold/Heat Therapy: Cold pack to left hip as needed. Catheter: 2-way Lopez Catheter comment: DC Lopez once she is more active. Skin/Wound/Dressing Care Report to your healthcare provider any signs of infection, such as:: chills, fever, night sweats, increased pain, unusual drainage and unusual redness Dressing: Kt dressing to left hip x2 weeks. She will then need dressing removal and staple removal at Orthopedic office. Special Rehabilitation Services Reason for rehabilitation: Post-operative therapy Rehab type: Physical therapy and Occupational therapy Restrictions to mobility: Toe-touch weight-bearing left leg. Limited range of motion left hip. Discharge Data Primary Care Provider: Caprice Burrows Attending Provider: Linda Baer Admit Date/Time: 03/30/19 14:43 Quality VTE Deep Vein Thrombosis/Pulmonary Embolism Present on Admission: No
--- NOTE | 2019-04-09 11:26 | P.DS_ITS ---
History of Present Illness Date Patient Seen: 04/09/19 Time Patient Seen: 11:14 Chief complaint: left hip Narrative: Hospital day 11, postop day 7 following left hip hardware removal and I and D of septic joint. Patient has remained stable since surgery. Pain has improved. Her H&H have fluctuated. White count has fluctuated. Patient was to have been discharged on 04/04/2019. Because of her elevated white count patient was started on Unasyn by hospitalist. She remained stable over the weekend. Her wound culture grew group G Streptococcus which was sensitive to all except clindamycin. The specimen was sent to [facility] lab for PCR. Results back today note Streptococcus canis. Dr. Baer the consult to Dr. Rodgers, Infectious Disease, by phone regarding this. He felt patient would do well on ceftriaxone rather than Unasyn. He also did not think patient needed to be transfused as this would affect her healing and infection recovery. Dr. Baer felt the patient could be discharged back to [facility] today on IV antibiotic. Patient feels her pain is improved today. Discharge Providers Date of admission: 03/30/19 14:43 Discharge Date: 04/09/19 Primary care physician: Caprice Burrows PA-C Consults: 03/30/19 13:51 Consult to Orthopedic Surgery Routine Comment: Consulting Provider: Cyrus Cam Reason for consultation: Admission Has provider been notified: Yes 03/30/19 15:37 Consult to Physical Therapy Evaluate & Treat Comment: TDWB LLE Physician Instructions: Evaluate and Treat Consult to Respiratory Therapy Evaluate & Treat Comment: Physician Instructions: Evaluate and treat 04/02/19 17:17 Consult to PICC Line RN Routine Comment: 04/02/19 18:02 Consult to Discharge Planning Routine Comment: Consult to Physical Therapy Evaluate & Treat Comment: NWB left lower extremity Physician Instructions: post op GIA protocol Consult to Respiratory Therapy Evaluate & Treat Comment: Physician Instructions: Evaluate and treat 04/03/19 09:11 Consult to Occupational Therapy Evaluate & Treat Comment: Out of bed as tolerated, nonweightbearing left leg Physician Instructions: Evaluate and treat Consult to Physical Therapy Evaluate & Treat Comment: Physician Instructions: Evaluate and Treat 04/03/19 09:13 Consult to PICC Line RN Routine Comment: Insert PICC line today 04/03/19 11:04 Consult to Physical Therapy Evaluate & Treat Comment: Physician Instructions: Evaluate and Treat Discharge provider: Cam العراقي PA-C Summary Discharge Diagnosis: Status post left hip hardware removal with septic joint. Hospital Course: Patient brought to hospital on 03/30/2019 for left hip problem. She did have some tachycardia issue and this was followed by hospitalist. She underwent left hip surgery for removal of hardware and was found to have purulence joint with I and D done. She was initially placed on vancomycin and ceftriaxone. Wound culture noted group G strep which was sensitive all except clindamycin. Her white count continued to slightly increase and patient was changed to Unasyn on 04/05/2019. Left hip culture PCR done at [facility] lab noted Streptococcus canis. Dr. Baer consulted with Dr. Rodgers, Infectious Disease, who recommended putting patient back on ceftriaxone. Patient was transferred to [facility] on postop day 7. Status at Discharge Cognitive/behavioral status at discharge: oriented Functional status at discharge: bed bound Overall status at discharge: patient is not back to baseline Time Spent with Patient Less than 30 minutes Exam Vital Signs (past 8 hours): - 04/09/19 07:22 Temperature 97.9 F Pulse Rate 75 Respiratory Rate 16 Blood Pressure 131/62 Pulse Oximetry 99 Fraction of Inspired Oxygen 21 Oxygen Delivery Method Room Air Oxygen Flow Rate 0 Narrative Exam Narrative: Alert, oriented in no acute distress resting in bed. Legs. Kt dressing to left hip incision is dry without drainage or inflammation. Good vacuum. Small dressing to Hemovac site is dry without drainage or inflammation. No calf pain or swelling. Pulses symmetrical. Objective Labs Result Diagrams: 04/09/19 04:55 04/08/19 05:03 Labs: Laboratory Results - last 24 hr 04/02/19 04/09/19 14:32 04:55 WBC 13.1 H RBC 2.26 L Hgb 7.3 L Hct 21.4 L MCV 94.9 MCH 32.2 MCHC 33.9 RDW 14.7 Plt Count 606 H Neut % (Auto) 73.8 Lymph % (Auto) 16.4 L [place] % (Auto) 5.8 Eos % (Auto) 3.4 Baso % (Auto) 0.6 Neut # (Auto) 9700 H Lymph # (Auto) 2200 [place] # (Auto) 800 Eos # (Auto) 400 Baso # (Auto) 100 Bacterial Detect (PCR) See separate reports Discharge Plan Discharge Plan Patient Disposition: SNF Transfer to: [facility] Under care of provider: Facility MD or PCP Transportation: Facility vehicle Labs: CBC, BMP, CRP,ESR done 04/15/2019 with results to Linda Baer MD Discharge comment: Patient to be on IV ceftriaxone 2Gmx4 weeks. Toe-touch weight-bearing left leg. Patient needs postop visit with Dr. Baer at [place] office in 1 week. I certify the postop hospital fpc care is medically necessary on a continuing basis for any conditions for which he/ she received care during this hospitalization.: Yes The receiving facility has agreed to accept transfer and provide medical treatment.: Yes Discharge Med Rec/Prescriptions Prescriptions: New ceftriaxone 2 gram recon soln 2 gram IV Q24H Qty: 42 RF: 0 Continued aspirin 325 mg tablet 650 mg PO BEDTIME PRN (Reason: Pain, Mild) RF: 0 amlodipine [Norvasc] 5 mg tablet 5 mg PO DAILY Qty: 90 RF: 0 levothyroxine [Synthroid] 75 mcg tablet 75 mcg PO DAILY Qty: 90 RF: 3 olive leaf extract 500 mg 1,000 mg PO DAILY RF: 0 lisinopril-hydrochlorothiazide 20-25 mg tablet 1 tab PO DAILY RF: 0 hydrocodone-acetaminophen 5-325 mg Tablet 1 tab PO Q4HR PRN (Reason: Pain, Mild (1-3)) Qty: 15 RF: 0 ascorbic acid (vitamin C) [Vitamin C] 500 mg Tablet 500 mg PO BID Qty: 30 RF: 0 calcium carbonate 200 mg calcium (500 mg) Tablet,Chewable 1,000 mg PO Q4HR PRN (Reason: Dyspepsia) Qty: 30 RF: 0 docusate sodium [DOK] 100 mg Capsule 100 mg PO BID Qty: 30 RF: 0 cholecalciferol (vitamin D3) [Vitamin D3] 2,000 unit capsule 2,000 unit PO DAILY Qty: 30 RF: 0 ferrous sulfate [iron] 325 mg (65 mg iron) tablet 325 mg PO BID Qty: 60 RF: 0 Follow up/Referrals: Caprice Burrows PA-C [Primary Care Provider] - Discharge Health Status Brief summary of current health status: 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 She was brought to the hospital to have revision total hip arthroplasty done. At the time of surgery she was found to have septic hip joint and hardware was removed. She is being treated with IV a ntibiotics for 4 weeks and then will have total hip arthroplasty. Multidrug resistant organism: No MDRO MDRO Verified by culture: Yes Provider Discharge Instructions Diet: Diet as Tolerated Liquid consistency: Normal/Thin Food texture: Regular Activity: Toe-touch weight-bearing left leg. She may be up as tolerated. Cold/Heat Therapy: Cold pack to left hip as needed. Catheter: 2-way Lopez Catheter comment: DC Lopez once she is more active. Skin/Wound/Dressing Care Report to your healthcare provider any signs of infection, such as:: chills, fever, night sweats, increased pain, unusual drainage and unusual redness Dressing: Kt dressing to left hip x2 weeks. She will then need dressing removal and staple removal at Orthopedic office. Special Rehabilitation Services Reason for rehabilitation: Post-operative therapy Rehab type: Physical therapy and Occupational therapy Restrictions to mobility: Toe-touch weight-bearing left leg. Limited range of motion left hip. Discharge Data Primary Care Provider: Caprice Burrows Attending Provider: Linda Baer Admit Date/Time: 03/30/19 14:43 Quality VTE Deep Vein Thrombosis/Pulmonary Embolism Present on Admission: No
--- NOTE | 2019-04-09 11:42 | P.DS_ITS ---
History of Present Illness Chief complaint: left hip Narrative: Hospital day 11, postop day 7 following left hip hardware removal and I and D of septic joint. Patient has remained stable since surgery. Pain has improved. Her H&H have fluctuated. White count has fluctuated. Patient was to have been discharged on 04/04/2019. Because of her elevated white count patient was started on Unasyn by hospitalist. She remained stable over the weekend. Her wound culture grew group G Streptococcus which was sensitive to all except clindamycin. The specimen was sent to [facility] lab for PCR. Results back today note Streptococcus canis. Dr. Baer the consult to Dr. Rodgers, Infectious Disease, by phone regarding this. He felt patient would do well on ceftriaxone rather than Unasyn. He also did not think patient needed to be transfused as this would affect her healing and infection recovery. Dr. Baer felt the patient could be discharged back to [facility] today on IV antibiotic. Patient feels her pain is improved today. Discharge Providers Date of admission: 03/30/19 14:43 Discharge Date: 04/09/19 Primary care physician: Caprice Burrows PA-C Consults: 03/30/19 13:51 Consult to Orthopedic Surgery Routine Comment: Consulting Provider: Cyrus Cam Reason for consultation: Admission Has provider been notified: Yes 03/30/19 15:37 Consult to Physical Therapy Evaluate & Treat Comment: TDWB LLE Physician Instructions: Evaluate and Treat Consult to Respiratory Therapy Evaluate & Treat Comment: Physician Instructions: Evaluate and treat 04/02/19 17:17 Consult to PICC Line RN Routine Comment: 04/02/19 18:02 Consult to Discharge Planning Routine Comment: Consult to Physical Therapy Evaluate & Treat Comment: NWB left lower extremity Physician Instructions: post op GIA protocol Consult to Respiratory Therapy Evaluate & Treat Comment: Physician Instructions: Evaluate and treat 04/03/19 09:11 Consult to Occupational Therapy Evaluate & Treat Comment: Out of bed as tolerated, nonweightbearing left leg Physician Instructions: Evaluate and treat Consult to Physical Therapy Evaluate & Treat Comment: Physician Instructions: Evaluate and Treat 04/03/19 09:13 Consult to PICC Line RN Routine Comment: Insert PICC line today 04/03/19 11:04 Consult to Physical Therapy Evaluate & Treat Comment: Physician Instructions: Evaluate and Treat Discharge provider: Cam العراقي PA-C Exam Vital Signs (past 8 hours): - 04/09/19 07:22 Temperature 97.9 F Pulse Rate 75 Respiratory Rate 16 Blood Pressure 131/62 Pulse Oximetry 99 Fraction of Inspired Oxygen 21 Oxygen Delivery Method Room Air Oxygen Flow Rate 0 Objective Labs Result Diagrams: 04/09/19 04:55 04/08/19 05:03 Labs: Laboratory Results - last 24 hr 04/02/19 04/09/19 14:32 04:55 WBC 13.1 H RBC 2.26 L Hgb 7.3 L Hct 21.4 L MCV 94.9 MCH 32.2 MCHC 33.9 RDW 14.7 Plt Count 606 H Neut % (Auto) 73.8 Lymph % (Auto) 16.4 L [place] % (Auto) 5.8 Eos % (Auto) 3.4 Baso % (Auto) 0.6 Neut # (Auto) 9700 H Lymph # (Auto) 2200 [place] # (Auto) 800 Eos # (Auto) 400 Baso # (Auto) 100 Bacterial Detect (PCR) See separate reports Discharge Plan Discharge Plan Patient Disposition: SNF Transfer to: [facility] Under care of provider: Facility MD or PCP Transportation: Facility vehicle Labs: CBC, BMP, CRP,ESR done 04/15/2019 with results to Linda Baer MD Discharge comment: Patient to be on IV ceftriaxone 2Gmx4 weeks. Toe-touch weight-bearing left leg. Patient needs postop visit with Dr. Baer at [place] office in 1 week. I certify the postop hospital long term care is medically necessary on a continuing basis for any conditions for which he/ she received care during this hospitalization.: Yes The receiving facility has agreed to accept transfer and provide medical treatment.: Yes Discharge Med Rec/Prescriptions Prescriptions: New ceftriaxone 2 gram recon soln 2 gram IV Q24H Qty: 42 RF: 0 Continued aspirin 325 mg tablet 650 mg PO BEDTIME PRN (Reason: Pain, Mild) RF: 0 amlodipine [Norvasc] 5 mg tablet 5 mg PO DAILY Qty: 90 RF: 0 levothyroxine [Synthroid] 75 mcg tablet 75 mcg PO DAILY Qty: 90 RF: 3 olive leaf extract 500 mg 1,000 mg PO DAILY RF: 0 lisinopril-hydrochlorothiazide 20-25 mg tablet 1 tab PO DAILY RF: 0 hydrocodone-acetaminophen 5-325 mg Tablet 1 tab PO Q4HR PRN (Reason: Pain, Mild (1-3)) Qty: 15 RF: 0 ascorbic acid (vitamin C) [Vitamin C] 500 mg Tablet 500 mg PO BID Qty: 30 RF: 0 calcium carbonate 200 mg calcium (500 mg) Tablet,Chewable 1,000 mg PO Q4HR PRN (Reason: Dyspepsia) Qty: 30 RF: 0 docusate sodium [DOK] 100 mg Capsule 100 mg PO BID Qty: 30 RF: 0 cholecalciferol (vitamin D3) [Vitamin D3] 2,000 unit capsule 2,000 unit PO DAILY Qty: 30 RF: 0 ferrous sulfate [iron] 325 mg (65 mg iron) tablet 325 mg PO BID Qty: 60 RF: 0 Follow up/Referrals: Caprice Burrows PA-C [Primary Care Provider] - Discharge Health Status Brief summary of current health status: 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 She was brought to the hospital to have revision total hip arthroplasty done. At the time of surgery she was found to have septic hip joint and hardware was removed. She is being treated with IV antibiotics for 4 weeks and then will have total hip arthroplasty. Multidrug resistant organism: No MDRO MDRO Verified by culture: Yes Provider Discharge Instructions Diet: Diet as Tolerated Liquid consistency: Normal/Thin Food texture: Regular Activity: Toe-touch weight-bearing left leg. She may be up as tolerated. Cold/Heat Therapy: Cold pack to left hip as needed. Catheter: 2-way Lopez Catheter comment: DC Lopez once she is more active. Skin/Wound/Dressing Care Dressing: Kt dressing to left hip x2 weeks. She will then need dressing removal and staple removal at Orthopedic office. Special Rehabilitation Services Reason for rehabilitation: Post-operative therapy Rehab type: Physical therapy and Occupational therapy Restrictions to mobility: Toe-touch weight-bearing left leg. Limited range of motion left hip. Discharge Data Primary Care Provider: Caprice Burrows Attending Provider: Linda Baer Admit Date/Time: 03/30/19 14:43 Quality VTE Deep Vein Thrombosis/Pulmonary Embolism Present on Admission: No
[2019-04-09 12:00] VITALS: BP 149/73; PULSE 74; RESP 16; TEMP 37.1; O2SAT 98
--- NOTE | 2019-04-09 13:02 | CM.DPC ---
Addendum entered by Aure Gomez LPN 04/09/19 14:50: Jaclyn/Mark REEVES has confirmed now that the [facility] snf auth is in place and expectation is that pt is going to d/c today at 1600. All is set for same. Original Note: DCP: continued: Spoke with ortho RG العراقي about an hour ago. He reported that he and Dr. Baer had just spoken by phone with ID Dr. Rodgers and the IV antibiotic treatment for the next 4 weeks was now confirmed. He also advised not giving a blood transfusion at this time/see the dc summary for specifics. [facility]/March has been update and can accept pt at 1530 or>. Conferred with therapy team re transport: BLS will be needed as pt does not mobilize well, is weak and up until d/c orders she has been NWB on L leg. She today is changed to TTWB but therapists report she does not move safely without at least a 2 person therapy team assist and has primarily been using a mechanical lift with nursing staff. Ortho RG العراقي is aware of same. Have discussed this with Mark REEVES, on today for Debo Ortiz. She will review notes and call back with the snf auth. She is aware that all is in place pending her ok. [facility] is called initially for the BLS transport. They in turn have called [facility] and have called this DCPlanner back to confirm pickup time of 1600. Pt and MONA Wadsworth are updated. All orders are now faxed and placed into snf packet. No PASRR needed as is return to the snf without PASRR changes indicated. Pt says she is comfortable with this plan for today and she will call her daughter to let her know her expected arrival at [facility]. Will follow prn until pt leaves. Ambulance/certification of med necessity is given to [facility] to scan to pt's EMR. Will await final Flores ok from Jaclyn and update [facility] accordingly.
--- NOTE | 2019-04-09 13:40 | PC.NURSE ---
Addendum entered by Ermelinda Smith R.N. 04/09/19 15:33: Pts harmony drain intact with motor flashing green, Pt just given 2 vicodin for pain. Report called to [facility] as pt is leaving here at 1600. Original Note: Pt is doing much better with transferring today. She is a max 2 person assist with walker and gaitbelt. Given 2 vicodin at 1100 and pt has been comfortable. She did complain of a cramping feeling to her calf, this resided shortly after. Ate about 75% of her lunch and is now taking a nap after being repositioned. Pt up and voided and hada bm on commode this morning. Resting before she gets transferred to [facility] at 1600.
--- NOTE | 2019-04-09 15:09 | P.PN_ITS ---
Subjective Date Patient Seen: 04/09/19 Time Patient Seen: 13:03 Interval history: Avery continues to be doing just a little better. She does have significant pain when she attempts to mobilize to a chair. She notes that she feels a little bit weak but not severe. She denies any significant calf pain she is not having problems with a cough respiratory symptoms. She does note ongoing left hip pain but is not significantly worsened. Exam Vital Signs (past 8 hours): - 04/09/19 07:22 04/09/19 12:00 Temperature 97.9 F 98.7 F Pulse Rate 75 74 Respiratory Rate 16 16 Blood Pressure 131/62 149/73 H Pulse Oximetry 99 98 Fraction of Inspired Oxygen 21 Oxygen Delivery Method Room Air Oxygen Flow Rate 0 Narrative Exam Narrative: Her temperatures been fairly normal throughout her hospital course. It is not elevated today. Her calf her soft bilaterally. Her dressings intact and in place. There is no significant swelling or collection of fluid or an abscess. If she does have significant pain with attempted mobilization. Objective Labs Result Diagrams: 04/09/19 04:55 04/08/19 05:03 Labs: Laboratory Results - last 24 hr 04/02/19 04/09/19 14:32 04:55 WBC 13.1 H RBC 2.26 L Hgb 7.3 L Hct 21.4 L MCV 94.9 MCH 32.2 MCHC 33.9 RDW 14.7 Plt Count 606 H Neut % (Auto) 73.8 Lymph % (Auto) 16.4 L [place] % (Auto) 5.8 Eos % (Auto) 3.4 Baso % (Auto) 0.6 Neut # (Auto) 9700 H Lymph # (Auto) 2200 [place] # (Auto) 800 Eos # (Auto) 400 Baso # (Auto) 100 Bacterial Detect (PCR) See separate reports Assessment & Plan Assessment & Plan narrative: I had a further extensive discussion with the patient today. I have also contacted Dr. Rodgers from Infectious Disease several times. Her culture is growing a strep canis on her PCR test. It is sensitive to ceftriaxone. I discussed her clinical course in detail with Dr. Rodgers today and he continues to recommend ceftriaxone 2 mg IV QD. Concerns regarding the serious nature of her problem the importance of curing her infection prior to secondary reconstructive surgery and the rationale for continuing IV antibiotics was discussed in detail with the patient. She is frustrated as she would like to mobilize and be more active. Clinically she does appear to be responding to the antibiotics but her white count continues to be elevated. I extensively considered possibility of a transfusion and opted against it after discussion with Dr. Rodgers regarding decreased ability to fight infection in the face of a transfusion. She will be discharged to a care home facility today to continue with IV antibiotics and physical therapy. The goal is to mobilize her from the bed to her chair and then get her up and active as much as possible in a chair. I anticipate she will need to be on ceftriaxone for 4-6 weeks. I have seen her multiple days during her hospital stay in conjunction with the physician's assistance. Time Spent With Patient Time with patient: 15-24 minutes Quality VTE Deep Vein Thrombosis/Pulmonary Embolism Present on Admission: No
[2019-04-09 15:15] VITALS: BP 152/69; PULSE 81; RESP 18; TEMP 36.8; O2SAT 100
--- NOTE | 2019-04-09 17:44 | PC.NURSE ---
Transfer Note A&O, VSS, RA. Pain managed w/ [place], given to 2hrs prior to transfer. Report given to [facility] per day shift nurse. Report given to transporters by this RN. Transfer packet given to transporters along w/ pt belongings. All questions/concerns addressed. Pt taken to [facility] in stretcher via ambulance.
== END 2019-04-09 16:15 | DRG 464 ==
LOC: ED 14:29 → AC 14:44
PROVIDERS: Internal Medicine; Nurse Practitioner Gerontology; Orthopaedic Surgery Foot and Ankle Surgery; Physician Assistant; Physician Assistant Surgical; Admitting Provider Orthopaedic Surgery; Emergency Provider Emergency Medicine; Family Provider Physician Assistant; PCP Physician Assistant; Visit Provider Orthopaedic Surgery
PROC: 0QP704Z Removal of Internal Fixation Device from Left Upper Femur, Open Approach (ICD-10-PCS; principal; 2019-04-02 12:15)
DX: T84.621A Infection and inflammatory reaction due to internal fixation device of left femur, initial encounter (principal); M96.840 Postprocedural hematoma of a musculoskeletal structure following a musculoskeletal system procedure; E87.1 Hypo-osmolality and hyponatremia; D62 Acute posthemorrhagic anemia; I47.1 Supraventricular tachycardia; M00.852 Arthritis due to other bacteria, left hip; T84.328A Displacement of other bone devices, implants and grafts, initial encounter; E83.42 Hypomagnesemia; E55.9 Vitamin D deficiency, unspecified; Z72.89 Other problems related to lifestyle; E03.9 Hypothyroidism, unspecified; I10 Essential (primary) hypertension; Z87.891 Personal history of nicotine dependence
CPT/HCPCS: 36415; 36569; 36592; 51701; 73502; 76000; 80048; 80053; 80061; 80202; 81001; 83036; 83540; 83550; 83735; 83930; 84145; 84443; 85014; 85018; 85025; 85610; 85651; 85730; 86140; 86850; 86900; 86901; 87070; 87075; 87077; 87147; 87176; 87186; 87205; 87797; 87801; 93005; 93306; 94760; 94762; 96374; 96376; 97127; 97162; 97165; 97530; 97535; 99283; 99284; C8929; C9290; J0295; J0690; J0696; J1100; J1170; J1642; J1650; J2270; J2405; J2704; J3010; P9041; Q9957

== ENCOUNTER 2019-05-16 10:01 | Inpatient (IN) | payer OTHER, SELFPAY ==
[2019-03-30 15:12] VITALS: BMI 31.1
[2019-05-06 09:49] VITALS: BMI 27.8
[2019-05-16] VITALS (23 sets, daily range): BP systolic 69–135; BP diastolic 40–102; PULSE 68–136; RESP 8–27; TEMP 35.9–37.2; O2SAT 74–100; BMI 27.8
--- NOTE | 2019-05-16 | DI.RAD.S_ITS ---
PROCEDURE: XR CHEST 1V INDICATIONS: ET TUBE MANIPULATION TECHNIQUE: One view of the chest was acquired. COMPARISON: [facility], CR, XR CHEST 1V, 05/16/2019, 19:32. FINDINGS: Surgical changes and devices: None. Lungs and pleura: Lungs are mildly improved with improved aeration of the right mid and lower lung. Lung base scarring persists on the left. Mild alveolar infiltration persists on the right.. No pleural effusions or pneumothorax. Mediastinum: Mediastinal contours appear normal. Heart size is normal. Bones and chest wall: No suspicious bony lesions. Overlying soft tissues appear unremarkable. IMPRESSION: No sign of worsening pneumonia, and aspiration is therefore considered the most likely cause for the mild alveolar airspace disease at the right mid and lower lung. Stable lung scarring at the left lung base. Dictated by: Tim Rojo M.D. on 05/16/2019 at 21:28 Approved by: Tim Rojo M.D. on 05/16/2019 at 21:29
--- NOTE | 2019-05-16 | DI.RAD.S_ITS ---
PROCEDURE: [id number] W PEL IF PERFORMED INDICATIONS: POSTERIOR HIP TECHNIQUE: AP pelvis with lateral view(s) of the left hip(s). COMPARISON: [facility], CR, XR HIP W PEL IF DONE LT 2V, 05/16/2019, 19:10. FINDINGS: Bones: No fractures or dislocations. Pelvic ring appears intact. No suspicious bony lesions. Soft tissues: The visualized bowel gas pattern is normal. No suspicious soft tissue calcifications. IMPRESSION: Intraoperative evaluation immediately after left total hip arthroplasty. Normal alignment. Please also refer to the wide [id number] postoperative study later same day. Dictated by: Tim Rojo M.D. on 05/16/2019 at 21:33 Approved by: Tim Rojo M.D. on 05/16/2019 at 21:35
--- NOTE | 2019-05-16 | DI.RAD.S_ITS ---
PROCEDURE: XR CHEST 1V INDICATIONS: INTUBATED, STATUS POST SURGERY TECHNIQUE: One view of the chest was acquired. COMPARISON: [facility], CR, XR CHEST FOR PICC 1V, 04/02/2019, 18:01. FINDINGS: Surgical changes and devices: None. Lungs and pleura: Lungs are abnormal, with a patchy mild pneumonia pattern or aspiration at the right mid and lower lung. Linear scarring left lung base.. No pleural effusions or pneumothorax. Mediastinum: Mediastinal contours appear normal. Heart size is normal. Bones and chest wall: No suspicious bony lesions. Overlying soft tissues appear unremarkable. IMPRESSION: Mild or early pneumonia right mid and lower lung versus aspiration (mild in severity). Chronic lung scarring left lung base. Dictated by: Tim Rojo M.D. on 05/16/2019 at 19:59 Approved by: Tim Rojo M.D. on 05/16/2019 at 20:00
--- NOTE | 2019-05-16 06:00 | DI.RAD.S_ITS ---
PROCEDURE: XR HIP W PEL IF DONE LT 2V INDICATIONS: left total hip post operative TECHNIQUE: AP pelvis with lateral view(s) of the left hip. COMPARISON: [facility], CR, XR PELVIS WITH LATERAL HIP LEFT, 05/03/2019, 11:46. [facility], CR, XR HIP W PEL IF DONE LT 2V, 04/08/2019, 8:32. [facility], CR, XR HIP W PEL IF DONE LT 2V, 04/02/2019, 16:14. FINDINGS: Bones: This study represents a revision left hip arthroplasty likely performed after infection and removal of prior fixation devices given the pattern of radiodense small rounded structures along the borders of the operative bed and at the arthroplasty femoral head/neck junction, likely implying placement of multiple antibiotic impregnated devices. A long femoral component total hip arthroplasty has been placed with the acetabular and femoral components in anatomic alignment. No [place] bone fracture is found. The medial acetabular screw extends slightly beyond the inner cortex of the acetabulum near the acetabular roof.. Soft tissues: The visualized bowel gas pattern is normal. No suspicious soft tissue calcifications. IMPRESSION: Excellent anatomic alignment established after left total hip arthroplasty revision presumably for infection, with expected postoperative appearance. The medial acetabular fixation screw does penetrate slightly beyond the inner cortex of the medial acetabular roof. Dictated by: Tim Rojo M.D. on 05/16/2019 at 19:39 Approved by: Tim Rojo M.D. on 05/16/2019 at 19:42
[2019-05-16] MEDS: LACTATED RINGERS 1,000 ML 42 ML IV ×3 (10:42→18:42)
[2019-05-16] MEDS: VANCOMYCIN 1,000 MG/200 ML PIGGYBACK 200 MG IV ×2 (10:55→22:36)
[2019-05-16 11:05] LABS: Hematocrit 27.2 % (36-46); Hemoglobin 8.9 g/dL (12.0-16.0); Mean Corpuscular HGB Conc 32.8 % (30-36); Mean Corpuscular Hemoglobin 29.1 PG (26-34); Mean Corpuscular Volume 88.5 fL (80-100); Platelet Count 438 X10^3/uL (150-400); Red Blood Cell Count 3.08 X10^6/uL (4.0-5.2); White Blood Cell Count 8.3 X10^3/uL (4.5-11.0)
[2019-05-16] MEDS: ACETAMINOPHEN 325 MG TABLET 975 MG PO (11:09)
[2019-05-16] MEDS: CELECOXIB 200 MG CAPSULE PO (11:09)
[2019-05-16] MEDS: PREGABALIN 75 MG CAPSULE PO (11:10)
--- NOTE | 2019-05-16 11:49 | SUR.PREOP ---
Pre-op Note: Patient arrived via wheelchair from surgery waiting area significant pain. Dressed and transferred to stretcher with 3 assist and use of gait belt. PICC line access and IV abx started per orders. Pre-op medication given with sip of water. Labs drawn per orders. Pictures of sacral skin redness and small sore taken pre-op. Description noted in patient assessment.
--- NOTE | 2019-05-16 12:21 | PM.PREOP ---
Pre-operative Note Interval Note History & Physical reviewed/Exam performed by Physician: Yes Changes to H&P: No H&P completed within 30 days and has changed as indicated here:: ongoing left hip pain, no recent fever or chills, saw ID yesterday
[2019-05-16] MEDS: CEFAZOLIN 2 GM/100 ML FROZ.PIGGY IV (12:30)
[2019-05-16] MEDS: VANCOMYCIN 1,000 MG VIAL 1000 MG TOP (14:35)
[2019-05-16] MEDS: BUPIVACAINE 0.25% W/ EPI 30 ML VIAL 60 ML INJ (14:36)
[2019-05-16] MEDS: BUPIVACAINE LIPOSOME 266 MG/20 ML VIAL INJ (14:36)
[2019-05-16] MEDS: THROMBIN (RECOMBINANT) 5,000 UNIT VIAL 5000 UNIT TOP (14:54)
[2019-05-16] MEDS: SODIUM CHLORIDE IRRIG SOLUTION 3,000 ML, GENTAMICIN 240 MG IRR (15:42)
[2019-05-16 15:52] LABS: Hematocrit 25.4 % (36-46); Hemoglobin 8.5 g/dL (12.0-16.0)
[2019-05-16] MEDS: SODIUM CHLORIDE 0.9% 1,000 ML 150 ML IV ×3 (16:03→22:02)
[2019-05-16 17:17] LABS: Hematocrit 29.2 % (36-46); Hemoglobin 9.8 g/dL (12.0-16.0); Mean Corpuscular HGB Conc 33.5 % (30-36); Mean Corpuscular Hemoglobin 29.9 PG (26-34); Platelet Count 211 X10^3/uL (150-400); Red Blood Cell Count 3.28 X10^6/uL (4.0-5.2); Red Cell Distribution Width 14.8 % (11.6-14.8); White Blood Cell Count 7.8 X10^3/uL (4.5-11.0)
[2019-05-16] MEDS: TRANEXAMIC ACID 1,000 MG VIAL 1000 MG INJ ×2 (17:53→17:54)
--- NOTE | 2019-05-16 19:14 | PM.OP.1 ---
Operative Date/Time/Diagnoses Date of procedure: 05/16/19 Time of procedure: 19:15 Pre-op diagnosis: left hip fracture nonunion/malunion, left hip infection Post-op diagnosis: same Procedure & Clinicians Procedure: conversion of prior hip surgery to GIA, irrigation and debridement left hip Same procedure as scheduled: Yes Indications: This is a 73-year-old female who fell and sustained a severely comminuted left proximal femur fracture. She underwent open reduction internal fixation. She had soft bone and had failure of fixation. At the time of attempted conversion to hip arthroplasty she was found to have evidence of a strep infection. All of her implants were removed and she has been on IV antibiotics for 6 weeks for a strep canis infection. After 6 weeks of antibiotics she is now brought to the operating room for repeat I and D and placement of an antibiotic spacer or possible conversion to total hip arthroplasty. Surgeon: Linda [employer] Manager: Meenu Sanchez Anesthesia Type: General Operative Notes Findings: no evidence of active infection, severe shortening and scarring of the proximal femur, nonunion/malunion with multiple fragments, very soft bone, adequate stability with dual mobility Closure Type: primary Specimen(s): other (PCR and cultures) Prosthetic devices, grafts, tissues, transplants, or devices: Moses/Biomet G7 cup 52mm, 2 screws 20mm, dual mobility liner 42 by 28mm, 28 +3, Rashmi size A 60, 15 by 150mm stem, antibiotic beads Applied: drain(s) Estimated Blood Loss (mL): 1,000 Blood products transfused: packed red blood cells (4 units) Procedure in detail: The patient was seen in the pre-operative area, where the patient identified the left hip as the operative site and this was marked with my initials. The patient received pre-operative antibiotics and was taken to the operating room and placed on the operative table in the right lateral decubitus position after satisfactory anesthesia. A buhr mill operator out was performed. The left leg was prepared from the ankle to the iliac crest with ChloroPrep in the usual fashion and draped through sterile drapes. The hip was approached through an approximately 26 cm incision centered over the greater trochanter and curving gently posteriorly as it went proximally using the previous incision. This was carried sharply to the fascia sonja, which was divided and retracted with a self retaining retractor. The gluteal fibers were gently split and the gluteus was meticulously mobilized as was the tensor off of the proximal trochanter. Meticulous care was taken to avoid the sciatic nerve, which was identified and protected throughout the case. The proximal aspect of the femur was meticulously identified. The trochanter was carefully freed from scar tissue and dissection was carried out along the posterior aspect of the trochanter. There was evidence of a partial union and malunion of the proximal end of the femur and the trochanter. An excisional debridement was performed removing heterotopic ossification, fragments of bone, and any tissue that appeared consistent with the membrane potentially suggesting infection. There was dense scar throughout the hip and severe shortening of the proximal femur with the trochanteric region approximately contracted between 2 and 3 cm. Intraoperative cultures of fluid were sent for stat Gram stain and culture and sensitivity. Throughout the procedure multiple additional cultures were taken including canal cultures femoral cultures synovial cultures acetabular cultures, and the miscellaneous specimen. Clinically there did not appear to be evidence of active infection. There was no gross purulence, there was no erythema or induration of the tissues but there was a substantial amount of scar and severe deformity of the femur. Retractors were placed around the femur and greater trochanteric region. Dissection was carried out along the proximal femoral trochanteric region resecting portions of bone and dissecting down until the acetabulum and lateral ilium could be adequately identified. Deformed proximal femoral bone was carefully removed in order to more appropriately restore a component of proximal femoral anatomy. The hip capsule was opened and dissection was carried out around the acetabulum both anteriorly and posteriorly. A saw was used to osteotomize the femoral head free from the deformed proximal femur. A significant portion of the trochanteric region appeared to be adherent to the femoral shaft. The hip capsule was opened both anteriorly and posteriorly and the femoral head was removed. Additional soft tissue dissection allowed mobilization of the proximal femoral comminuted fragment and shaft to be mobilized anteriorly. Attention was directed to the acetabulum. Retractors were carefully placed around the acetabulum. Hemostasis was achieved with an Aquamantys. The pulvinar was resected and the transverse acetabular ligament was resected. The acetabulum was carefully reamed up to a size 47. There was moderate bleeding from the acetabular bone and thrombin was opened in order to provide some additional hemostasis. Forty-eight cup was carefully inserted with attention directed at position and version. She had very soft bone in her acetabulum. The cup was specifically checked was noted that it did appear to be stable and the screw was not placed initially. A neutral trial liner was placed. Next, A guidewire was placed in the femoral canal after taking specimens from the canal femur in the acetabulum for cultures. AP and lateral image confirmed position of the guidewire in an intramedullary position. Flexible reamers were used to ream up to a size 12 in order to adequately open the canal. Canal was cleaned with pulse lavage and a reverse curette. Next the Rashmi straight reamers were reamed up to a size 15. They were sunk to the level of 70 in order to allow flexibility in component positioning. It was not felt that the trochanter was in its [place] position. A trial stem was placed and a 50 mm body was placed and an attempted trial reduction showed that the tip was very tight and it was quite difficult to get it out to length and reduced. It did catch and lever on the cup and it was felt that the cup and shifted positions. The trial components were removed and the cup position was checked. Was noted that the cup it clearly shifted positions. The bone was analyzed it was noted to be soft and it was not felt that we could get adequate fixation with a 48 mm cup. I placed reamers directly in the acetabulum and sized it up to a size 51 and then did a minimal amount of reaming with a 51 Reamer. Fifty-two cup was inserted. She did have soft bone and it was felt that she needed additional screw fixation. Two screws were placed and the cup stability was once again checked it was felt that there was adequate fixation with 2 screws. Intraoperative x-rays showed acceptable position of the acetabulum and screws. Neutral trial liner was placed. A repeat trial reduction was performed with a size 15 mm by 150 stem size a body and a 50 mm implant. The hip was very unstable and somewhat difficult to reduce. It was reduced without significant difficulty but she had clear evidence of lateral instability. I did a trial reduction with multiple different necks and considered using a constrained liner. She had severe softening of her bone and opted not to use a constrained liner and felt more comfortable with a dual mobility option. Ultimately a 60 mm size a body was attached to a 15 x 150 mm stem. The anteversion of the cone was specifically checked and it was placed in about 15-20 degrees of anteversion. A trial head was then placed and the hip relocated and checked for leg length and stability. Intraoperative fluoro was used to confirm stem position, cup position, adequate canal fit and fill and aspects of the proximal femoral malunion to allow additional bone resection. The patient was stable in the position of sleep, of squatting, and could be put through a range of motion with 45 degrees internal rotation without dislocation. At 90 degrees flexion, internal rotation to 50 degrees was possible before dislocation. A brief Betadine soak was performed while trialing with head options. A dual mobility option was selected. The hip was meticulously irrigated with normal saline. The acetabulum was cleared of all material and the hip relocated one final time. The capsulomuscular flap was then repaired to the greater trochanter though using the tag sutures. The short external rotators were repaired with a nonabsorbable suture. Antibiotic beads were placed in the canal, in the deep layer as well as deep to the fascia as well as vancomycin powder. A deep drain was placed and brought out anteriorly. The fascia sonja was closed with Vicryl. The subcutaneous layer was closed with barbed sutures and skin anna. An Aquacel Ag dressing was applied and the patient was taken to recovery having tolerated the procedure well. Complications: none Condition: critical (some hypotension intraop, well controlled, reintubated in the RR) Disposition: ICU Plan for aftercare: The patient will be maintained on a standard total hip replacement protocol with weight bearing as tolerated and posterior hip precautions. The patient was placed in a hip abduction pillow to use in the short-term postoperatively until we can adequately mobilize her with posterior hip precautions. The patient will receive Aspirin and sequential compression devices for DVT prophylaxis. The patient will be discharged home when safe for the home environment.
[2019-05-16] MEDS: INSULIN REGULAR 100 UNIT/ML 3 ML VIAL SUBCUT (19:17)
--- NOTE | 2019-05-16 20:04 | SUR.PHASEI ---
pt to [facility] with plan to transfer to ICU after recovery. Dr wei at bedside on arrival and 15 minutes into recovery then he signed case over to dr negron. Pt omar never higher than a 6. MAP / BP 58-61 while in reccovery and HR 110-120. Room air spo2 was 95-98 with RR of 25-[address] wei and Zack aware. at 1920 pt spo2 dropped into the 70-75 range with shallow ineffective breaths. NRB at 15 liters/100 % placed with increase to 85 % SPO2. RT called as well as RN assist of Carter nuñez RN. Ambu bag assisted breaths given to pt with increase of spo2 of 95 % . Dr negron from anesthesia in and pt intubated with 6.5 turkmen et tube . post intubation x-ray obtained and at 1934 immediate transfer to ICU report and assisted in stabilization of pt with Katherin RN and Fidel RT until 1954
--- NOTE | 2019-05-16 20:08 | PM.PROC.1 ---
Procedures Date/Time Date of procedure: 05/16/19 Time of procedure: 19:20 Intubation Sedative: none Paralytic: rocuronium Mg given: 40 Laryngoscope: fiber optic video scope ET tube size: 7 ET tube uncuffed: Yes Tube secured depth (cm): 22 Tube secured location: lips Tube placement confirmation: visualized tube passing through cords Patient tolerated procedure: well Intubation complications: none Additional comments: This patient was s/p a 6 hour hip revision. She was hypoventilating and tachypneic in the recovery room. She was still obtunded from her long anesthetic. She did not receive very much in the way of narcotic intra op. I had a Patient under my care in another OR, so I felt is was safer for this patient to be reintubated for the remainder of the night and we can try and extubate her tomorrow when there are more staff around. She was pre oxygentaed with bag/mask assitance by RT and RN. I gave 40 mg Rocuronium. Glidescope used to view a 7.0 ETT pass easily through her vocal cords. ETT was taped in place by RT present. Tube depth was 22 cm. We discussed initial vent settings as 12 for rate and 600 TV. These can be adjusted by the wrist hemmer as needed. Dr. Berry has already consulted Dr. Kent for Mrs. Singh's ongoing ICU care.
[2019-05-16] MEDS: NOREPINEPHRINE 4 MG in DEXTROSE 5% IN WATER 250 ML 7.62 ML IV (20:15)
--- NOTE | 2019-05-16 20:20 | P.PCN_ITS ---
Procedures Date/Time Date of procedure: 05/16/19 Time of procedure: 19:20 Intubation Sedative: none Paralytic: rocuronium Mg given: 40 Laryngoscope: fiber optic video scope ET tube size: 7 ET tube uncuffed: Yes Tube secured depth (cm): 22 Tube secured location: lips Tube placement confirmation: visualized tube passing through cords Patient tolerated procedure: well Intubation complications: none Additional comments: This patient was s/p a 6 hour hip revision. She was hypoventilating and tachypneic in the recovery room. She was still obtunded from her long anesthetic. She did not receive very much in the way of narcotic intra op. I had a Patient under my care in another OR, so I felt is was safer for this patient to be reintubated for the remainder of the night and we can try and extubate her tomorrow when there are more staff around. She was pre oxygentaed with bag/mask assitance by RT and RN. I gave 40 mg Rocuronium. Glidescope used to view a 7.0 ETT pass easily through her vocal cords. ETT was taped in place by RT present. Tube depth was 22 cm. We discussed initial vent settings as 12 for rate and 600 TV. These can be adjusted by the electroslag welding machine operator as needed. Dr. Berry has already consulted Dr. Kent for Mrs. Singh's ongoing ICU care.
[2019-05-16 20:28] LABS: Hematocrit 26.8 % (36-46); Hemoglobin 8.9 g/dL (12.0-16.0)
[2019-05-16] MEDS: SODIUM CHLORIDE 0.9% 500 ML IV (20:40)
[2019-05-16 20:44] LABS: BUN Creatinine Ratio 27.1 (6-22); Blood Urea Nitrogen 19 mg/dL (7-17); Calcium 7.1 mg/dL (8.4-10.2); Carbon Dioxide 16 mmol/L (22-32); Chloride 108 mmol/L (98-107); Estimated Glomerular Filt Rate > 60.0 mL/min (>60); Glucose 224 mg/dL (80-110); HEMOLYSIS < 15 (0-50); Magnesium 1.5 mg/dL (1.6-2.3); Potassium 4.9 mmol/L (3.4-5.1); Sodium 132 mmol/L (137-145)
[2019-05-16 20:56] LABS: Troponin I < 0.012 ng/mL (0.01-0.034)
[2019-05-16] MEDS: SODIUM CHLORIDE 0.9% 1,000 ML 100 ML IV (21:02)
[2019-05-16 21:20] LABS: HCO3 ABG 14 mmol/L (22-26); Oxygen Saturation ABG 100 % (95-100); PCO2 ABG 27.1 mmHg (35-45); PO2 ABG 226 mmHg (80-100); TCO2 ABG 15 mmol/L (21-31)
[2019-05-16 21:21] LABS: Fractionated Inspired Oxygen 50
--- NOTE | 2019-05-16 21:22 | PC.NURSE ---
Addendum entered by Katherin Murrell R.N. 05/16/19 23:16: 2245 - Titrated gtt down to 9 mcg/min per hospitalist order. 2224 - Pt able to nod head yes and no to questions. Nods head yes to question of pain. Dilaudid given. 2124 - Hr 140's, Norepinephrine gtt at 10 mcg/min. bolus infusing. Original Note: 1939 - Pt arrived from PACU. Bed in [place] position. ET tube and bag ventilation. Per POPPED [employer]N OVEN ATTENDANT and RT ET tube is past the vocal cords, however needs to be advanced. ET tube advanced by RT. Taped. Stat x-ray. IVF open to E PICC. Hospitalist notified of pt arrive. ET tube 24 at the lip tube size 6.5. 1999 - Vent settings FiO2 50%, Peep 5, TV 500, RR 12. Sats 100%. Pt flutters eyes slightly to nail bed pressure. Pupils 2mm and reactive. BG 250. Pedal pulses confirmed with doppler. SCD's placed. 2014 - Norepinephrine initiated at 2mcg/min. BP 86/55 MAP 68, Verbal order to titrate SBP >90 and MAP>65. 2019 - Gtt increased to 4mcg/min. BP 70/15 MAP 48. 2024 - Gtt increased to 8mcg/min. BP 69/45 MAP 54. 2034 - Gtt increased to 10mcg/min. BP 78/67 MAP 70. OGT inserted. + whoosh. Withdrawal of bile green/yellow liquid. Set to LIS. Hemovac with 120cc out. Ekg done. Scant urine output. Able to wiggle fingers with request to squeeze. Bilateral soft wrist restraints in place.
[2019-05-16 21:23] LABS: pH ABG 7.32 (7.35-7.45)
[2019-05-16] MEDS: NOREPINEPHRINE 4 MG in DEXTROSE 5% IN WATER 250 ML 38.1 ML IV (22:02)
[2019-05-16] MEDS: SODIUM CHLORIDE 0.9% 1,000 ML 1000 ML IV (22:02)
[2019-05-16 22:03] LABS: Lactate (Lactic Acid) 3.8 mmol/L (0.7-2.1)
--- NOTE | 2019-05-16 22:09 | PM.HP.1 ---
History of Present Illness Date Patient Seen: 05/16/19 Time Patient Seen: 20:16 Chief complaint: Total Hip Arthroplasty [id number] Narrative: Avery Singh is a 73-year-old female patient with a past medical history significant for hypertension, hyperlipidemia not on statin due to intolerance, hypothyroidism status post thyroidectomy for cancer, vitamin D insufficiency, prior heavy alcohol consumption (no history of alcohol withdrawal, delirium, or seizures). Hospitalist service is consulted to evaluate and manage patient's post operative acute respiratory failure and hemodynamic instability in the ICU. The patient had sustained a fall with a comminuted intertrochanteric hip fracture with previous fixation with an intramedullary cephalomedullary nail. The fixation had collapsed and failed prompting the patient to go to the OR on 04/02/2019 resulting in explantation of hardware followed by 6 weeks of antibiotics with the patient residing at [facility]. The patient went to the OR today for revision of her previous left hip surgery with a total hip arthroplasty lasting 6 hours. During the operative procedure blood pressure was supported with phenylephrine for most the case with the addition of DDAVP in the last hour with pressures hovering approximately 90 systolic. The patient had intraoperative EBL of 2500 cc per the anesthesia record. Patient received 4 units of blood as well as 6 L of crystalloid during the procedure. While in the recovery room the patient remained obtunded and per the recovery room nurse patient had a precipitous drop in her oxygen saturation into the 70s and was hypoventilating and tachypneic requiring the patient to be reintubated by anesthesia. Upon arrival to the ICU the patient is mechanically ventilated and hypotensive with IV saline running at 150 cc/hour. Patient History Medical History RLS (restless legs syndrome) (Acute) History of cervical cancer (Acute) Hypertension (Chronic) Hypothyroid (Chronic) Thyroid cancer (Chronic) Surgical History Status post hip surgery (Acute 04/02/19) Status post hip surgery (Acute ~02/2019) History of myomectomy (Chronic) History of thyroidectomy (Inactive) Family History (Updated 04/03/19 @ 03:39 by ANDRES Hopper) Father Alcoholism Smoker Heart disease Stroke Mother No problems noted. Sister No problems noted. Social History (Updated 04/03/19 @ 03:43 by ANDRES Hopper) household members: none lives independently: Yes Smoking Status: Former smoker Tobacco: How many years used: 42 second hand exposure: No alcohol intake: current substance use type: marijuana additional social history: Reports smoking cigarettes from age 14 to age 56, 0.5 to 1 pack per day. Reports to drinking 2 glasses of wine daily and 1-2 shots of Vodka prior to bedtime. Notes this to be a lifelong practice. Family & Social History Family History Father Alcoholism Smoker Heart disease Stroke Mother No problems noted. Sister No problems noted. Social History: household members none Prior Living Arrangements Skilled Nurse Facility lives independently Yes Safety & Behavioral: Feels Safe in Current Yes Environment Been Physically Hurt or No Threatened By a Person Suicidal Ideation Description None Suicide Plan Description No Plan Tobacco & Substance use: Tobacco type cigarettes Smoking Status Former smoker alcohol intake current alcohol intake frequency 3 or more drinks per day Substance Use Type marijuana Meds Home Medications Medication Instructions Recorded Confirmed Type aspirin 325 mg tablet 650 mg PO BEDTIME PRN tab 11/05/18 05/16/19 History amlodipine 5 mg tablet 5 mg PO DAILY #90 tab 12/14/18 05/16/19 Rx levothyroxine 75 mcg tablet 75 mcg PO DAILY #90 tab 02/13/19 05/16/19 Rx lisinopril-hydrochlorothiazide 1 tab PO DAILY 03/07/19 05/16/19 History ascorbic acid (vitamin C) [Vitamin 500 mg PO BID #30 tab 03/11/19 05/16/19 Rx C] calcium carbonate 1,000 mg PO Q4HR PRN #30 tab 03/11/19 05/16/19 Rx cholecalciferol (vitamin D3) 2,000 unit PO DAILY #30 cap 03/11/19 05/16/19 Rx [Vitamin D3] docusate sodium [DOK] 100 mg PO BID #30 cap 03/11/19 05/16/19 Rx ferrous sulfate [iron] 325 mg PO BID #60 tab 03/11/19 05/16/19 Rx ceftriaxone 2 gram IV Q24H #42 each 04/05/19 05/16/19 Rx hydrocodone-acetaminophen 1 - 2 tab PO Q4HR PRN 05/06/19 05/16/19 History Allergies Allergy/AdvReac Type Severity Reaction Status Date / Time Kppaxpi-Hlc-Kki Reductase AdvReac Intermediate myalgias, Verified 04/02/19 11:49 Inhibitor tinnitus [[id number] REDUCTASE INHIBITOR] Review of Systems Review of Systems due to endotracheal tube (Unresponsive post anesthesia.) Exam Vital Signs (past 8 hours): - 05/16/19 18:53 05/16/19 19:00 05/16/19 19:05 Temperature 98.3 F 99 F 98.5 F Pulse Rate 110 H 115 H 112 H Respiratory Rate 26 H 26 H 26 H Blood Pressure 80/51 L 74/52 L 79/52 L Pulse Oximetry 96 95 97 05/16/19 19:15 05/16/19 19:20 05/16/19 19:40 Temperature 98.5 F 97.9 F Pulse Rate 120 H 125 H 115 H Respiratory Rate 27 H 8 L 11 L Blood Pressure 78/54 L 80/40 L 89/54 L Pulse Oximetry 95 74 L 05/16/19 19:55 05/16/19 20:00 05/16/19 20:15 Temperature Pulse Rate 115 H 114 H 119 H Respiratory Rate 16 14 22 Blood Pressure 69/45 L 86/55 L Pulse Oximetry 99 100 100 05/16/19 20:25 05/16/19 20:40 05/16/19 20:55 Temperature 96.7 F L 97.6 F 97.5 F L Pulse Rate 121 H 132 H 132 H Respiratory Rate 24 Blood Pressure 69/45 L 86/56 L 93/57 L Pulse Oximetry 05/16/19 21:10 05/16/19 21:37 05/16/19 21:40 Temperature 97.4 F L 97.3 F L Pulse Rate 133 H 135 H Respiratory Rate Blood Pressure 86/58 L 77/45 L Pulse Oximetry 100 05/16/19 21:59 Temperature Pulse Rate 100 H Respiratory Rate 15 Blood Pressure Pulse Oximetry Fraction of Inspired Oxygen 35 Oxygen Delivery Method Humidification,Mechanical Ventilation Oxygen Flow Rate 15 Narrative Exam Narrative: GENERAL APPEARANCE: well developed, well nourished, unresponsive on ventilatory support. HEAD: Normocephalic, atraumatic, no scalp lesions. EYES: pupils 2.5 mm ou, sclera non-icteric, no visual tracking EARS: normal external structures NOSE: no rhinorrhea ORAL CAVITY: 6.[address], 24cn at the lip, mucosa moist THROAT: no visualized NECK/THYROID: no jugular venous distention, no carotid bruit, no thyromegaly, trachea midline. LYMPH NODES: no cervical or supraclavicular lymphadenopathy. SKIN: warm and dry, no suspicious lesions, no rashes, good turgor. HEART: regular sinus tachycardia, S1-S2 without murmur, no rubs or gallops, brisk capillary refill, trace edema LUNGS: mechanically ventilated, PRVC, rate 12, vol 500, Breath sounds are equal but slightly coarse with diminished bases bilateral right greater than left CHEST: Symmetrical movement, not over breathing backup rate of the ventilator ABDOMEN: Soft, no distention, dull to percussion, no organomegaly a, no bowel tones appreciated. EXTREMITIES: Dressing left posterior hip, clean and dry, Hemovac drain draining bloody fluid, does spontaneous movement of extremities. NEUROLOGIC: Patient status postanesthesia, currently not on sedation, remains on and responsive to tactile or noxious stimulus. Objective Labs Result Diagrams: 05/16/19 23:59 05/16/19 21:40 Labs: Laboratory Results - last 24 hr 05/16/19 05/16/19 05/16/19 10:54 10:54 15:40 WBC 8.3 RBC 3.08 L Hgb 8.9 L 8.5 L Hct 27.2 L 25.4 L MCV 88.5 MCH 29.1 MCHC 32.8 RDW 16.0 H Plt Count 438 H ABG pH ABG pCO2 ABG pO2 ABG HCO3 ABG Total CO2 ABG O2 Saturation ABG Base Excess FiO2 Sodium Potassium Chloride Carbon Dioxide BUN Creatinine Estimated GFR BUN/Creatinine Ratio Glucose Lactate Calcium Magnesium Troponin I Nasal Screen MRSA (PCR) Blood Type B Positive Antibody Screen Negative Crossmatch See Detail 05/16/19 05/16/19 05/16/19 17:00 19:45 20:19 WBC 7.8 RBC 3.28 L Hgb 9.8 L 8.9 L Hct 29.2 L 26.8 L MCV 89.0 MCH 29.9 MCHC 33.5 RDW 14.8 Plt Count 211 ABG pH ABG pCO2 ABG pO2 ABG HCO3 ABG Total CO2 ABG O2 Saturation ABG Base Excess FiO2 Sodium Potassium Chloride Carbon Dioxide BUN Creatinine Estimated GFR BUN/Creatinine Ratio Glucose Lactate Calcium Magnesium Troponin I Nasal Screen MRSA (PCR) Negative for mrsa Blood Type Antibody Screen Crossmatch 05/16/19 05/16/19 05/16/19 20:19 20:19 20:48 WBC RBC Hgb Hct MCV MCH MCHC RDW Plt Count ABG pH 7.32 L ABG pCO2 27.1 L ABG pO2 226 H ABG HCO3 14 L ABG Total CO2 15 L ABG O2 Saturation 100 ABG Base Excess -12.0 L FiO2 50 Sodium 132 L Potassium 4.9 Chloride 108 H Carbon Dioxide 16 L BUN 19 H Creatinine 0.70 Estimated GFR > 60.0 BUN/Creatinine Ratio 27.1 H Glucose 224 H Lactate Calcium 7.1 L Magnesium 1.5 L Troponin I < 0.012 Nasal Screen MRSA (PCR) Blood Type Antibody Screen Crossmatch 05/16/19 21:40 WBC RBC Hgb Hct MCV MCH MCHC RDW Plt Count ABG pH ABG pCO2 ABG pO2 ABG HCO3 ABG Total CO2 ABG O2 Saturation ABG Base Excess FiO2 Sodium Potassium Chloride Carbon Dioxide BUN Creatinine Estimated GFR BUN/Creatinine Ratio Glucose Lactate 3.8 H Calcium Magnesium Troponin I Nasal Screen MRSA (PCR) Blood Type Antibody Screen Crossmatch Assessment & Plan Assessment & Plan narrative: 1. Acute hypoxic respiratory failure, requiring intubation in PACU, active -patient reintubated in the PACU. Initial post intubation chest x-ray identifies shallow tube, tube repositioned will obtain new chest x-ray. -ABG taken post intubation and on ventilator with a pH of 7.31, pCO2 27.1, PO2 of 226, base excess of -12, bicarbonate is 13.9 for partially compensated metabolic acidosis. -chest x-ray reveals right lower lobe pneumonia believed to be related to aspiration. -will check procalcitonin and lactic acid level, draw blood cultures. -will start Zosyn 3.375 g IV every 6 hours -patient remains on PVRC ventilation managed by RT. -will reassess ABG as indicated. 2. Hypotension post procedure, active -patient with blood pressure in the 70s systolic upon arrival to ICU from PACU. Narrow pulse pressure approximately 18 points, Tachycardic 110's to 120. -patient received 6 L of IV fluid and support with phenylephrine and DDAVP by anesthesia intraoperatively. -Echocardiogram demonstrated normal RV and LV size, wall thickness and function with EF 60-65%. Both atria normal in size. Diastolic parameters could not be assessed. No significant valvular heart disease. -12 lead EKG obtained demonstrated sinus tachycardia without evidence of ischemia or infarct, no ectopy noted. -patient started on norepinephrine for alpha and beta affect for a MAP of >60 with heart rate increase to the 130s. -will continue normal saline bolus, reviewed chest x-ray to assess heart size and for evidence of pulmonary vascular congestion. -will normalize fluid volume status with normal saline and blood products, titrate off vasopressors as able. -hold all antihypertensives and diuretic -continue to monitor for electrolyte and metabolic abnormalities and replete electrolytes as needed. 3. Redo left hip athroplasty secondary to failed left ORIF with acute GBS infection, active -patient had failed ORIF with septic joint requiring explantation of all hardware in 6 weeks of antibiotics for strep cannabis infection. Patient underwent left total hip arthroplasty today. -Wound culture previously grew Streptococcus canis, -Continue pain and postoperative management per orthopedic surgery. -Continue PT and OT evaluation and treatment. 4. Acute blood loss on chronic anemia, present on admission. Stable. -Anemic following procedure 04/02/2019, on iron repletion and has normocytic normochromic anemia. -Secondary to acute blood loss associated with recent surgery and EBL of 2500 in today's procedure. Patient has been on some aspirin 650 mg p.o. daily. -received 4 units of PRBCs in the OR as well as 6 L of crystalloid solution. -intraoperative H&H is 9.8 and 29.2, follow-up H&H is 8.9 and 26.8. -spoke with Dr. Baer bedside review patient status with interrupted blood loss. Hemovac with 250 cc output. -Continue serial labs to monitor H&H closely and transfuse as indicated 5. Subacute hyponatremia, present on admission. Stable. -Current sodium level 136. -Potentialy multifactorial and suspected to have multitude of contributing factors including: Acute infection related to aspiration pneumonia, hypovolemia secondary to surgery. -Discontinued HCTZ. -normal saline IV bolus to reverse dehydration. -will will follow electrolytes on serial labs. 6. Acute hypomagnesemia, present on admission. Active -Initial magnesium level 1.5. Received magnesium sulfate 2 g IV. -will re-evaluate magnesium level and replete as necessary. 7. Chronic Hypothyroidism, active -will continue patient's home medication levothyroxine 75 mcg per NG or maybe PO if extubated. This 73-year-old female patient who is admitted to the intensive care unit related to acute respiratory failure post anesthetic in the recover room requiring intubation and mechanical ventilation. The patient is hypotensive and tachycardic requiring ongoing fluid management and volume resuscitation includinng evaluation and multiple re-evaluations, medication management and data review. Phone call is placed to the patient's daughter who is the designated sewing machines salesperson and updated on the patient's change in status, plan of care and response. Thank you for consulting our service. Critical care time: 60 minutes.
[2019-05-16] MEDS: FAMOTIDINE 20 MG/50 ML PIGGYBACK 200 MG IV (22:13)
[2019-05-16] MEDS: HYDROMORPHONE 0.5 MG INJ IV (22:22)
[2019-05-16 22:27] LABS: BUN Creatinine Ratio 22.5 (6-22); Blood Urea Nitrogen 18 mg/dL (7-17); Calcium 7.2 mg/dL (8.4-10.2); Carbon Dioxide 16 mmol/L (22-32); Chloride 108 mmol/L (98-107); Estimated Glomerular Filt Rate > 60.0 mL/min (>60); Glucose 238 mg/dL (80-110); HEMOLYSIS < 15 (0-50); Potassium 4.7 mmol/L (3.4-5.1); Sodium 132 mmol/L (137-145)
[2019-05-16] MEDS: MAGNESIUM SULFATE 2 GM/50 ML PIGGYBACK IV (22:36)
[2019-05-16 22:42] LABS: Procalcitonin 0.15 ng/mL (<0.5)
[2019-05-16] MEDS: PROPOFOL 1,000 MG/100 ML VIAL 1.364 MG IV (23:41)
[2019-05-16 23:55] LABS: Reflexed Lactate in 2 Hours Y
[2019-05-17] VITALS (57 sets, daily range): BP systolic 51–122; BP diastolic 25–66; PULSE 85–131; RESP 7–26; TEMP 36.2–37.1; O2SAT 92–100
[2019-05-17] MEDS: PIPERACILLIN-TAZO 3.375 GM/50 ML FROZ.PIGGY IV ×4 (00:17→16:03)
[2019-05-17] MEDS: SODIUM CHLORIDE 0.9% 1,000 ML 500 ML IV ×2 (00:19→04:00)
[2019-05-17 00:29] LABS: Hematocrit 25.2 % (36-46)
[2019-05-17 00:37] LABS: Hemoglobin 8.1 g/dL (12.0-16.0)
[2019-05-17 00:40] LABS: Lactate 2HR (Lactic Acid Rflx) 3.9 mmol/L (0.7-2.1)
[2019-05-17] MEDS: HYDROMORPHONE 0.5 MG INJ IV ×2 (02:21→05:17)
--- NOTE | 2019-05-17 02:22 | DI.RAD.S_ITS ---
PROCEDURE: XR CHEST 1V INDICATIONS: intubated, right lower lung pneumonia TECHNIQUE: One view of the chest was acquired. COMPARISON: [facility], CR, XR CHEST 1V, 05/16/2019, 20:06, 1932, at 1910. Lung bases on CT abdomen and pelvis 08/27/2013 FINDINGS: Surgical changes and devices: Endotracheal tube tip terminates in the mid trachea approximately 5 cm above the rizwana. Enteric tube courses into the stomach. Left-sided PICC line terminates in the midline, unchanged. Lungs and pleura: Platelike streaky opacity at the lung bases is similar to the prior exams performed yesterday evening. No pleural effusions or pneumothorax. Mediastinum: Mediastinal contours appear normal. Heart size is normal. Bones and chest wall: No suspicious bony lesions. Overlying soft tissues appear unremarkable. IMPRESSION: 1. Mild bibasilar platelike streaky opacity is unchanged compared to yesterday evening. Favor atelectasis but in the proper clinical setting pneumonia or aspiration could have a similar appearance. 2. Left-sided PICC terminates in the midline, unchanged. Dictated by: Yuan Morrison M.D. on 05/17/2019 at 7:23 Approved by: Yuan Morrison M.D. on 05/17/2019 at 7:30
[2019-05-17] MEDS: NOREPINEPHRINE 4 MG in DEXTROSE 5% IN WATER 250 ML 34.29 ML IV (03:56)
[2019-05-17] MEDS: NOREPINEPHRINE 4 MG in DEXTROSE 5% IN WATER 250 ML 30.48 ML IV (05:15)
[2019-05-17 05:29] LABS: PCO2 ABG 28.3 mmHg (35-45); PO2 ABG 140 mmHg (80-100); pH ABG 7.31 (7.35-7.45)
[2019-05-17 05:30] LABS: Fractionated Inspired Oxygen 30; HCO3 ABG 14 mmol/L (22-26); Oxygen Saturation ABG 99 % (95-100); TCO2 ABG 15 mmol/L (21-31)
[2019-05-17 06:21] LABS: Add Manual Diff / Slide Review NO; Basophils Absolute Auto 200 /uL (0-100); Basophils Percent Auto 1.2 % (0-2); Eosinophils Absolute Auto 0 /uL (0-450); Hematocrit 26.6 % (36-46); Hemoglobin 8.9 g/dL (12.0-16.0); Lymphocytes Absolute Auto 1900 /uL (1100-4500); Lymphocytes Percent Auto 10.7 % (25-40); Mean Corpuscular HGB Conc 33.3 % (30-36); Mean Corpuscular Hemoglobin 28.3 PG (26-34); Monocytes Absolute Auto 600 /uL (0-900); Monocytes Percent Auto 3.6 % (3-14); Neutrophils Absolute Auto 14800 /uL (1500-7000); Neutrophils Percent Auto 84.5 % (50-75); Platelet Count 187 X10^3/uL (150-400); Red Blood Cell Count 3.13 X10^6/uL (4.0-5.2); Red Cell Distribution Width 17.3 % (11.6-14.8); White Blood Cell Count 17.5 X10^3/uL (4.5-11.0)
[2019-05-17 06:34] LABS: Alanine Aminotransferase 22 IU/L (9-52); Albumin 1.7 g/dL (3.5-5.0); Albumin Globulin Ratio 0.8 (1.0-2.8); Alkaline Phosphatase 59 U/L (38-126); Aspartate Aminotransferase 26 IU/L (14-36); BUN Creatinine Ratio 23.8 (6-22); Bilirubin Total 0.7 mg/dL (0.2-1.3); Blood Urea Nitrogen 19 mg/dL (7-17); Calcium 6.7 mg/dL (8.4-10.2); Carbon Dioxide 17 mmol/L (22-32); Chloride 111 mmol/L (98-107); Estimated Glomerular Filt Rate > 60.0 mL/min (>60); Globulin 2.2 g/dL (1.7-4.1); Glucose 173 mg/dL (80-110); HEMOLYSIS < 15 (0-50); Potassium 4.8 mmol/L (3.4-5.1); Sodium 133 mmol/L (137-145); Total Protein 3.9 g/dL (6.3-8.2)
[2019-05-17 06:45] LABS: Troponin I 0.095 ng/mL (0.01-0.034)
[2019-05-17 06:46] LABS: Magnesium 1.7 mg/dL (1.6-2.3)
[2019-05-17 07:30] LABS: Lactate (Lactic Acid) 1.3 mmol/L (0.7-2.1)
--- NOTE | 2019-05-17 09:57 | PC.NURSE ---
Received in bed, intubated, sedated. Responds appropriately to yes/no questions. Denies pain. Monitor shows ST, no ectopy noted. VSS on norepinepherine gtt, titrating to maintain MAP >/= 65. IVF NS infusing @ 150ml/hr. Propofol gtt titrated to off prior to breathing trial to assess for extubation readiness. Sp02 maintained >/= 95%. Lung sounds diminished bilat bases, rhonchi noted RUL. Plan of care, medications and pain management discussed with pt.
--- NOTE | 2019-05-17 10:20 | P.PN_ITS ---
Subjective Date Patient Seen: 05/17/19 Interval history: The Patient is a 73 y/o female S/P hip replacement after 6 weeks of IV antibiotics for an infected hip joint. She had 2500 CC of blood loss with resulting hypotension, tachycardia, and volume depletion. She recieved 5 units of blood, 10 liters of fluid, Antibiotics, and remains on pressors. She was intubated for presumed aspiration. Despite this she is a wake, alert, and responsive. She denies pain. Her propofol has been discontinued and she is undergoing a weaning trial now. She is alert and appears comfortable. Her levophed has been tapered to 5 mcg with the goal to taper off today. She is not diabetic but has had some elevated blood sugars post operatively Exam Vital Signs (past 8 hours): - 05/17/19 02:32 05/17/19 03:16 05/17/19 03:21 Temperature Pulse Rate 131 H 119 H 116 H Respiratory Rate 14 14 12 Blood Pressure 87/52 L 83/61 L Pulse Oximetry 100 100 100 05/17/19 03:54 05/17/19 04:03 05/17/19 04:30 Temperature Pulse Rate 114 H 114 H 105 H Respiratory Rate 12 12 17 Blood Pressure 105/38 L 104/56 L 106/50 L Pulse Oximetry 100 100 100 05/17/19 05:03 05/17/19 06:02 05/17/19 06:45 Temperature 97.4 F L Pulse Rate 105 H 102 H 104 H Respiratory Rate 12 12 12 Blood Pressure 113/59 L 101/50 L 96/49 L Pulse Oximetry 100 99 99 05/17/19 07:00 05/17/19 07:30 05/17/19 08:00 Temperature 97.6 F Pulse Rate 108 H 108 H 111 H Respiratory Rate 12 13 17 Blood Pressure 86/48 L 114/57 L 97/64 Pulse Oximetry 99 98 99 05/17/19 08:30 05/17/19 09:00 05/17/19 09:30 Temperature 97.9 F Pulse Rate 109 H 104 H 108 H Respiratory Rate 15 13 9 L Blood Pressure 113/61 108/56 L 100/54 L Pulse Oximetry 98 98 98 05/17/19 10:00 Temperature Pulse Rate 105 H Respiratory Rate 12 Blood Pressure 94/60 Pulse Oximetry 97 Fraction of Inspired Oxygen 30 Oxygen Delivery Method Mechanical Ventilation Oxygen Flow Rate 0 Narrative Exam Narrative: Intubated but awake responds appropriately Lungs: decreased but clear to auscultation CV: tachycardic nl Sl S2 Abd: soft/ non tender, hypoactive bowel tones Ext: trace edema Objective Labs Result Diagrams: 05/17/19 06:10 05/17/19 06:10 Labs: Laboratory Results - last 24 hr 05/16/19 05/16/19 05/16/19 10:54 10:54 15:40 WBC 8.3 RBC 3.08 L Hgb 8.9 L 8.5 L Hct 27.2 L 25.4 L MCV 88.5 MCH 29.1 MCHC 32.8 RDW 16.0 H Plt Count 438 H Neut % (Auto) Lymph % (Auto) [place] % (Auto) Eos % (Auto) Baso % (Auto) Neut # (Auto) Lymph # (Auto) [place] # (Auto) Eos # (Auto) Baso # (Auto) ABG pH ABG pCO2 ABG pO2 ABG HCO3 ABG Total CO2 ABG O2 Saturation ABG Base Excess FiO2 Sodium Potassium Chloride Carbon Dioxide BUN Creatinine Estimated GFR BUN/Creatinine Ratio Glucose Lactate Calcium Magnesium Total Bilirubin AST ALT Alkaline Phosphatase Troponin I Total Protein Albumin Globulin Albumin/Globulin Ratio Procalcitonin Specimen Hemolysis Nasal Screen MRSA (PCR) Blood Type B Positive Antibody Screen Negative Crossmatch See Detail 05/16/19 05/16/19 05/16/19 17:00 19:45 20:19 WBC 7.8 RBC 3.28 L Hgb 9.8 L 8.9 L Hct 29.2 L 26.8 L MCV 89.0 MCH 29.9 MCHC 33.5 RDW 14.8 Plt Count 211 Neut % (Auto) Lymph % (Auto) [place] % (Auto) Eos % (Auto) Baso % (Auto) Neut # (Auto) Lymph # (Auto) [place] # (Auto) Eos # (Auto) Baso # (Auto) ABG pH ABG pCO2 ABG pO2 ABG HCO3 ABG Total CO2 ABG O2 Saturation ABG Base Excess FiO2 Sodium Potassium Chloride Carbon Dioxide BUN Creatinine Estimated GFR BUN/Creatinine Ratio Glucose Lactate Calcium Magnesium Total Bilirubin AST ALT Alkaline Phosphatase Troponin I Total Protein Albumin Globulin Albumin/Globulin Ratio Procalcitonin Specimen Hemolysis Nasal Screen MRSA (PCR) Negative for mrsa Blood Type Antibody Screen Crossmatch 05/16/19 05/16/19 05/16/19 20:19 20:19 20:48 WBC RBC Hgb Hct MCV MCH MCHC RDW Plt Count Neut % (Auto) Lymph % (Auto) [place] % (Auto) Eos % (Auto) Baso % (Auto) Neut # (Auto) Lymph # (Auto) [place] # (Auto) Eos # (Auto) Baso # (Auto) ABG pH 7.32 L ABG pCO2 27.1 L ABG pO2 226 H ABG HCO3 14 L ABG Total CO2 15 L ABG O2 Saturation 100 ABG Base Excess -12.0 L FiO2 50 Sodium 132 L Potassium 4.9 Chloride 108 H Carbon Dioxide 16 L BUN 19 H Creatinine 0.70 Estimated GFR > 60.0 BUN/Creatinine Ratio 27.1 H Glucose 224 H Lactate Calcium 7.1 L Magnesium 1.5 L Total Bilirubin AST ALT Alkaline Phosphatase Troponin I < 0.012 Total Protein Albumin Globulin Albumin/Globulin Ratio Procalcitonin Specimen Hemolysis Nasal Screen MRSA (PCR) Blood Type Antibody Screen Crossmatch 05/16/19 05/16/19 05/16/19 21:40 21:40 21:40 WBC RBC Hgb Hct MCV MCH MCHC RDW Plt Count Neut % (Auto) Lymph % (Auto) [place] % (Auto) Eos % (Auto) Baso % (Auto) Neut # (Auto) Lymph # (Auto) [place] # (Auto) Eos # (Auto) Baso # (Auto) ABG pH ABG pCO2 ABG pO2 ABG HCO3 ABG Total CO2 ABG O2 Saturation ABG Base Excess FiO2 Sodium 132 L Potassium 4.7 Chloride 108 H Carbon Dioxide 16 L BUN 18 H Creatinine 0.80 Estimated GFR > 60.0 BUN/Creatinine Ratio 22.5 H Glucose 238 H Lactate 3.8 H Calcium 7.2 L Magnesium Total Bilirubin AST ALT Alkaline Phosphatase Troponin I Total Protein Albumin Globulin Albumin/Globulin Ratio Procalcitonin 0.15 Specimen Hemolysis Nasal Screen MRSA (PCR) Blood Type Antibody Screen Crossmatch 05/16/19 05/16/19 05/17/19 23:59 23:59 05:11 WBC RBC Hgb 8.1 L Hct 25.2 L MCV MCH MCHC RDW Plt Count Neut % (Auto) Lymph % (Auto) [place] % (Auto) Eos % (Auto) Baso % (Auto) Neut # (Auto) Lymph # (Auto) [place] # (Auto) Eos # (Auto) Baso # (Auto) ABG pH 7.31 L ABG pCO2 28.3 L ABG pO2 140 H ABG HCO3 14 L ABG Total CO2 15 L ABG O2 Saturation 99 ABG Base Excess -12.0 L FiO2 30 Sodium Potassium Chloride Carbon Dioxide BUN Creatinine Estimated GFR BUN/Creatinine Ratio Glucose Lactate 3.9 H Calcium Magnesium Total Bilirubin AST ALT Alkaline Phosphatase Troponin I Total Protein Albumin Globulin Albumin/Globulin Ratio Procalcitonin Specimen Hemolysis Nasal Screen MRSA (PCR) Blood Type Antibody Screen Crossmatch 05/17/19 05/17/19 05/17/19 06:10 06:10 06:10 WBC 17.5 H D RBC 3.13 L Hgb Cancelled 8.9 L Hct Cancelled 26.6 L MCV 85.0 D MCH 28.3 MCHC 33.3 RDW 17.3 H Plt Count 187 Neut % (Auto) 84.5 H Lymph % (Auto) 10.7 L [place] % (Auto) 3.6 Eos % (Auto) 0.0 L Baso % (Auto) 1.2 Neut # (Auto) 76827 H Lymph # (Auto) 1900 [place] # (Auto) 600 Eos # (Auto) 0 Baso # (Auto) 200 H ABG pH ABG pCO2 ABG pO2 ABG HCO3 ABG Total CO2 ABG O2 Saturation ABG Base Excess FiO2 Sodium Cancelled Potassium Cancelled Chloride Cancelled Carbon Dioxide Cancelled BUN Cancelled Creatinine Cancelled Estimated GFR Cancelled BUN/Creatinine Ratio Cancelled Glucose Cancelled Lactate Calcium Cancelled Magnesium Total Bilirubin AST ALT Alkaline Phosphatase Troponin I 0.095 H Total Protein Albumin Globulin Albumin/Globulin Ratio Procalcitonin Specimen Hemolysis Cancelled Nasal Screen MRSA (PCR) Blood Type Antibody Screen Crossmatch 05/17/19 05/17/19 05/17/19 06:10 06:10 07:05 WBC RBC Hgb Hct MCV MCH MCHC RDW Plt Count Neut % (Auto) Lymph % (Auto) [place] % (Auto) Eos % (Auto) Baso % (Auto) Neut # (Auto) Lymph # (Auto) [place] # (Auto) Eos # (Auto) Baso # (Auto) ABG pH ABG pCO2 ABG pO2 ABG HCO3 ABG Total CO2 ABG O2 Saturation ABG Base Excess FiO2 Sodium 133 L Potassium 4.8 Chloride 111 H Carbon Dioxide 17 L BUN 19 H Creatinine 0.80 Estimated GFR > 60.0 BUN/Creatinine Ratio 23.8 H Glucose 173 H Lactate 1.3 Calcium 6.7 L Magnesium 1.7 Total Bilirubin 0.7 AST 26 ALT 22 Alkaline Phosphatase 59 Troponin I Total Protein 3.9 L Albumin 1.7 L Globulin 2.2 Albumin/Globulin Ratio 0.8 L Procalcitonin 0.30 Specimen Hemolysis Nasal Screen MRSA (PCR) Blood Type Antibody Screen Crossmatch Assessment & Plan Assessment & Plan narrative: 73 y/o female s/p Left GIA, with resulting significant volume loss, improving 2. Acute REspiratory Failure- currently intubated with the goal to extubate today, 3. Probable Aspiration Pneumonia-Continue Zosyn for now, hopefully extubate today. Once out of the ICU consider switching back to IV Ceftriaxone for hip infection 4. Hypotension-improving, suspect secondary to volume loss. Will continue IV hydration decreasing rate to 75cc. Goal to taper levophed off, No evidence of Sepsis, lactate normal 5. Acute Blood Loss Anemia-s/p 5 units PRBC's, will continue to monitor, goal to keep hgb above 7grams 6. Hypertension, chronic, now hypotensive, will hold usual home medications 7. Hypothyroidism- resume L-thyroxine when taking PO 8. Hyperglycemia- Sliding Scale added 9. Hypocalcemia-will replace Patient remains critically ill but continues to make significant improvement. Goals today is to discontinue propofol, ventilator, and pressors if possible. 40 mins critical care time spent
[2019-05-17] MEDS: KCL 40 MEQ IN NS 1,000 ML 75 MEQ IV (10:47)
[2019-05-17] MEDS: CALCIUM GLUCONATE 9.3 MEQ in SODIUM CHLORIDE 0.9% 50 ML 140 ML IV (10:52)
--- NOTE | 2019-05-17 11:55 | PT.IPTN ---
Current Diagnoses Fracture of unspecified part of neck of left femur, initial encounter for closed fracture (05/16/19) Surgery Performed Operation Date: 05/16/19 12:00 Actual Procedures p Complex Posterior Total Hip Arthroplasty(Left) - Linda Baer MD Physical Therapy Treatment Note M3 PT-IP Subjective Start: 05/17/19 11:54 Freq: NEEDED Status: Active Protocol: Document 05/17/19 11:54 AB (Rec: 05/17/19 11:55 AB [id number]) Subjective Physical Therapy Visit Type Notes per nurse. pt is not ready for PT at this time and to check in the afternoon. pt is in the midst of having her vent out.
[2019-05-17 12:42] LABS: pH ABG 7.56 (7.35-7.45)
[2019-05-17 12:43] LABS: PCO2 ABG 13.2 mmHg (35-45); PO2 ABG 136 mmHg (80-100)
[2019-05-17 12:44] LABS: HCO3 ABG 12 mmol/L (22-26); Oxygen Saturation ABG 100 % (95-100); TCO2 ABG 12 mmol/L (21-31)
--- NOTE | 2019-05-17 14:18 | P.PN_ITS ---
Subjective Date Patient Seen: 05/17/19 Time Patient Seen: 14:17 Interval history: Patient is POD#1 s/p conversion to left GIA with Dr. Baer. She had 2500 CC of blood loss intraoperatively with resulting hypotension, tachycardia, and volume depletion. Hypotension was requiring pressors but she has been weaning today. She was intubated overnight due to concerns of aspiration but was successfully extubated this afternoon. Pain is well controlled. Lopez catheter in place. She has not mobilized yet due to being intubated. Exam Vital Signs (past 8 hours): - 05/17/19 06:45 05/17/19 07:00 05/17/19 07:30 Temperature Pulse Rate 104 H 108 H 108 H Respiratory Rate 12 12 13 Blood Pressure 96/49 L 86/48 L 114/57 L Pulse Oximetry 99 99 98 05/17/19 08:00 05/17/19 08:30 05/17/19 09:00 Temperature 97.6 F 97.9 F Pulse Rate 111 H 109 H 104 H Respiratory Rate 17 15 13 Blood Pressure 97/64 113/61 108/56 L Pulse Oximetry 99 98 98 05/17/19 09:30 05/17/19 10:00 05/17/19 10:30 Temperature 98.0 F Pulse Rate 108 H 105 H 111 H Respiratory Rate 9 L 12 21 Blood Pressure 100/54 L 94/60 100/57 L Pulse Oximetry 98 97 98 05/17/19 11:00 05/17/19 11:30 05/17/19 11:38 Temperature 98.3 F Pulse Rate 108 H 114 H Respiratory Rate 21 9 L Blood Pressure 118/55 L 86/57 L Pulse Oximetry 98 99 99 05/17/19 12:00 05/17/19 12:10 05/17/19 12:30 Temperature 98.0 F Pulse Rate 112 H 104 H Respiratory Rate 7 L 13 Blood Pressure 96/47 L 98/65 Pulse Oximetry 98 99 98 05/17/19 13:00 05/17/19 13:30 05/17/19 14:00 Temperature Pulse Rate 116 H 111 H 122 H Respiratory Rate 16 21 16 Blood Pressure 113/59 L 88/66 L 93/43 L Pulse Oximetry 98 98 94 Fraction of Inspired Oxygen 30 Oxygen Delivery Method Mechanical Ventilation Oxygen Flow Rate 0 Narrative Exam Narrative: 73 year old female resting in bed. Alert and oriented, no acute distress. Dressing in place over left hip is clean, dry, and intact. Hemovac in place. Patient able to flex/extend the ankle. Palpable pedal pulses. Calves soft, compressible. Objective Labs Result Diagrams: 05/17/19 06:10 05/17/19 06:10 Labs: Laboratory Results - last 24 hr 05/16/19 05/16/19 05/16/19 10:54 15:40 17:00 WBC 7.8 RBC 3.28 L Hgb 8.5 L 9.8 L Hct 25.4 L 29.2 L MCV 89.0 MCH 29.9 MCHC 33.5 RDW 14.8 Plt Count 211 Neut % (Auto) Lymph % (Auto) [place] % (Auto) Eos % (Auto) Baso % (Auto) Neut # (Auto) Lymph # (Auto) [place] # (Auto) Eos # (Auto) Baso # (Auto) ABG pH ABG pCO2 ABG pO2 ABG HCO3 ABG Total CO2 ABG O2 Saturation ABG Base Excess FiO2 Sodium Potassium Chloride Carbon Dioxide BUN Creatinine Estimated GFR BUN/Creatinine Ratio Glucose Lactate Calcium Magnesium Total Bilirubin AST ALT Alkaline Phosphatase Troponin I Total Protein Albumin Globulin Albumin/Globulin Ratio Procalcitonin Specimen Hemolysis Nasal Screen MRSA (PCR) Blood Type B Positive Antibody Screen Negative Crossmatch See Detail 05/16/19 05/16/19 05/16/19 19:45 20:19 20:19 WBC RBC Hgb 8.9 L Hct 26.8 L MCV MCH MCHC RDW Plt Count Neut % (Auto) Lymph % (Auto) [place] % (Auto) Eos % (Auto) Baso % (Auto) Neut # (Auto) Lymph # (Auto) [place] # (Auto) Eos # (Auto) Baso # (Auto) ABG pH ABG pCO2 ABG pO2 ABG HCO3 ABG Total CO2 ABG O2 Saturation ABG Base Excess FiO2 Sodium 132 L Potassium 4.9 Chloride 108 H Carbon Dioxide 16 L BUN 19 H Creatinine 0.70 Estimated GFR > 60.0 BUN/Creatinine Ratio 27.1 H Glucose 224 H Lactate Calcium 7.1 L Magnesium 1.5 L Total Bilirubin AST ALT Alkaline Phosphatase Troponin I Total Protein Albumin Globulin Albumin/Globulin Ratio Procalcitonin Specimen Hemolysis Nasal Screen MRSA (PCR) Negative for mrsa Blood Type Antibody Screen Crossmatch 05/16/19 05/16/19 05/16/19 20:19 20:48 21:40 WBC RBC Hgb Hct MCV MCH MCHC RDW Plt Count Neut % (Auto) Lymph % (Auto) [place] % (Auto) Eos % (Auto) Baso % (Auto) Neut # (Auto) Lymph # (Auto) [place] # (Auto) Eos # (Auto) Baso # (Auto) ABG pH 7.32 L ABG pCO2 27.1 L ABG pO2 226 H ABG HCO3 14 L ABG Total CO2 15 L ABG O2 Saturation 100 ABG Base Excess -12.0 L FiO2 50 Sodium Potassium Chloride Carbon Dioxide BUN Creatinine Estimated GFR BUN/Creatinine Ratio Glucose Lactate 3.8 H Calcium Magnesium Total Bilirubin AST ALT Alkaline Phosphatase Troponin I < 0.012 Total Protein Albumin Globulin Albumin/Globulin Ratio Procalcitonin Specimen Hemolysis Nasal Screen MRSA (PCR) Blood Type Antibody Screen Crossmatch 05/16/19 05/16/19 05/16/19 21:40 21:40 23:59 WBC RBC Hgb 8.1 L Hct 25.2 L MCV MCH MCHC RDW Plt Count Neut % (Auto) Lymph % (Auto) [place] % (Auto) Eos % (Auto) Baso % (Auto) Neut # (Auto) Lymph # (Auto) [place] # (Auto) Eos # (Auto) Baso # (Auto) ABG pH ABG pCO2 ABG pO2 ABG HCO3 ABG Total CO2 ABG O2 Saturation ABG Base Excess FiO2 Sodium 132 L Potassium 4.7 Chloride 108 H Carbon Dioxide 16 L BUN 18 H Creatinine 0.80 Estimated GFR > 60.0 BUN/Creatinine Ratio 22.5 H Glucose 238 H Lactate Calcium 7.2 L Magnesium Total Bilirubin AST ALT Alkaline Phosphatase Troponin I Total Protein Albumin Globulin Albumin/Globulin Ratio Procalcitonin 0.15 Specimen Hemolysis Nasal Screen MRSA (PCR) Blood Type Antibody Screen Crossmatch 05/16/19 05/17/19 05/17/19 23:59 05:11 06:10 WBC RBC Hgb Cancelled Hct Cancelled MCV MCH MCHC RDW Plt Count Neut % (Auto) Lymph % (Auto) [place] % (Auto) Eos % (Auto) Baso % (Auto) Neut # (Auto) Lymph # (Auto) [place] # (Auto) Eos # (Auto) Baso # (Auto) ABG pH 7.31 L ABG pCO2 28.3 L ABG pO2 140 H ABG HCO3 14 L ABG Total CO2 15 L ABG O2 Saturation 99 ABG Base Excess -12.0 L FiO2 30 Sodium Potassium Chloride Carbon Dioxide BUN Creatinine Estimated GFR BUN/Creatinine Ratio Glucose Lactate 3.9 H Calcium Magnesium Total Bilirubin AST ALT Alkaline Phosphatase Troponin I Total Protein Albumin Globulin Albumin/Globulin Ratio Procalcitonin Specimen Hemolysis Nasal Screen MRSA (PCR) Blood Type Antibody Screen Crossmatch 05/17/19 05/17/19 05/17/19 06:10 06:10 06:10 WBC 17.5 H D RBC 3.13 L Hgb 8.9 L Hct 26.6 L MCV 85.0 D MCH 28.3 MCHC 33.3 RDW 17.3 H Plt Count 187 Neut % (Auto) 84.5 H Lymph % (Auto) 10.7 L [place] % (Auto) 3.6 Eos % (Auto) 0.0 L Baso % (Auto) 1.2 Neut # (Auto) 61739 H Lymph # (Auto) 1900 [place] # (Auto) 600 Eos # (Auto) 0 Baso # (Auto) 200 H ABG pH ABG pCO2 ABG pO2 ABG HCO3 ABG Total CO2 ABG O2 Saturation ABG Base Excess FiO2 Sodium Cancelled Potassium Cancelled Chloride Cancelled Carbon Dioxide Cancelled BUN Cancelled Creatinine Cancelled Estimated GFR Cancelled BUN/Creatinine Ratio Cancelled Glucose Cancelled Lactate Calcium Cancelled Magnesium Total Bilirubin AST ALT Alkaline Phosphatase Troponin I 0.095 H Total Protein Albumin Globulin Albumin/Globulin Ratio Procalcitonin 0.30 Specimen Hemolysis Cancelled Nasal Screen MRSA (PCR) Blood Type Antibody Screen Crossmatch 05/17/19 05/17/19 05/17/19 06:10 07:05 12:05 WBC RBC Hgb Hct MCV MCH MCHC RDW Plt Count Neut % (Auto) Lymph % (Auto) [place] % (Auto) Eos % (Auto) Baso % (Auto) Neut # (Auto) Lymph # (Auto) [place] # (Auto) Eos # (Auto) Baso # (Auto) ABG pH 7.56 H ABG pCO2 13.2 L* ABG pO2 136 H ABG HCO3 12 L ABG Total CO2 12 L ABG O2 Saturation 100 ABG Base Excess -10.0 L FiO2 0.30 Sodium 133 L Potassium 4.8 Chloride 111 H Carbon Dioxide 17 L BUN 19 H Creatinine 0.80 Estimated GFR > 60.0 BUN/Creatinine Ratio 23.8 H Glucose 173 H Lactate 1.3 Calcium 6.7 L Magnesium 1.7 Total Bilirubin 0.7 AST 26 ALT 22 Alkaline Phosphatase 59 Troponin I Total Protein 3.9 L Albumin 1.7 L Globulin 2.2 Albumin/Globulin Ratio 0.8 L Procalcitonin Specimen Hemolysis Nasal Screen MRSA (PCR) Blood Type Antibody Screen Crossmatch Assessment & Plan Post-op Postoperative Procedures Operation Date: 05/16/19 12:00 Actual Procedures Side Surgeon p Complex Posterior Total Hip Arthroplasty Left Linda Baer MD Patient is being followed by hospitalist which we appreciate. She should mobilize with PT when stable. Posterior hip precautions. Patient was switched to Zosyn per hospitalist for possible aspiration pneumonia. Should remain on IV antibiotics x2 weeks post op per infectious disease.
[2019-05-17] MEDS: ACETAMINOPHEN 325 MG TABLET 975 MG PO ×2 (15:51→21:05)
--- NOTE | 2019-05-17 16:19 | CM.DANOTE ---
Discharge Planning/Care Management DCP: assessment: case received, EMR reviewed and went to check in on pt in ICU. Pt was on ventilator support after having surgery 05/16 for GIA:posterior precautions. Pt has been at [facility] after failure of a prior ORIF and need for extensive Iv antibiotics due to infection. /March confirms that they are keeping a bed for pt at [facility]. Admitted to care of Surgeon: Dr. Karri Lyn [facility] Drafter Topographical: hospitalists. Pt went to ICU after acute respiratory failure event. P: dcplanning team will need to check in with pt when she is able to confirm plan for readmit to [facility] when stable for same. A new [place] auth will be needed...do not anticipate a problem obtaining same. Plan this morning was attempt at vent wean later today.... CM Discharge Assessment Start: 05/17/19 16:17 Freq: Status: Active Protocol: Document 05/17/19 16:17 ITV (Rec: 05/17/19 16:19 ITV [id number]) Discharge Planning Assessment Advance Directives? Yes History Provided By Medical Record Prior Living Arrangements Skilled Nurse Facility Comment was at [facility] under [facility] for Iv antibiotics and care in prep for readiness for this surgery Facility Name Admitted From: [facility] Independent with ADL's Yes Whiteboard Updated in Patient Room with Yes name and ext. # of Community Manager Review Status In Process Pre-Anesthesia Assessment Start: 05/06/19 09:49 Freq: Status: Complete Protocol: Document 05/06/19 09:49 CAB (Rec: 05/06/19 11:00 CAB [id number]) Pre-Anesthesia Assessment PAC Comment Spoke w/Cynthia at [facility], reviewed medications and instructions for dos. Patient Also Known As ([email or web address]) Avery Patient Information Reviewed Via Phone Assessment Assessment Completed With Patient Diagnostic Results EKG Comment EKG @ 04/02/19 Primary Care Provider Caprice Burrows Seen Specialist in Last 12 Months Yes Specialist Seen Orthopedist Comment Admit to 03/30/19-04/09/19 Lt hip HWR, septic joint Primary Language Luxembourgish Preferred Language [place]ish Hotel Service Manager Required No Height 165.1 cm Weight 75.75 kg Body Mass Index (BMI) 27.8 Hearing Ability Normal Visual Assist Glasses Dentition Type Teeth, Natural Present Teeth, Broken Teeth, Missing Barriers to Learning None Hx Anesthesia Reactions No Hx Family Anesthesia Reaction No Hx Malignant Hyperthermia No Hx Blood Transfusions Yes: At 02/2019 Hx Blood Transfusion Reaction No Anesthesia Review Requested No Stone Rougher No alcohol intake current alcohol intake frequency 3 or more drinks per day Alcohol Intake Frequency Other: Has not been drinking while residing at [facility] Smoking Status Former smoker Tobacco type cigarettes how long ago did patient quit smoking Quit 15-20 years ago Substance Use Type marijuana Pain Present Pain Reported Musculoskeletal Symptoms Abnormal Gait Difficulty Walking Joint Pain History of Falling (Recent or History of Yes ) Patient is completely paralyzed or No completely immobile Prosthesis or Orthotic Device Front Wheel Walker Mental Status Oriented to own ability Is patient on oxygen? No Does patient have FLORES/SOB No Hx Sleep Apnea No CPAP/BIPAP use not prescribed Currently Taking a Beta Angelique No Can You Climb a Flight of Stairs Without No SOB Hx Chest Pain No Hx SOB No Hx Syncope or Dizziness No Anti-Coagulant Therapy No Has a Cloud Engagement Partner Yes: Echo @ 04/03/19 Cardiac Testing No Hx Pacemaker/ICD No Pacemaker Rep Required? No Cardiac Clearance Received Not Applicable Diet Type At Home Regular dysphagia No Bladder Pattern Incontinent Urinary Catheter Present No Hx Urinary Self Catheterization No Diabetes No Patient No Lactating No Hx Drug Resistant Organism No Presence of External or Internal Medical No Devices Have you traveled outside the [place] in the last 30 days? Marital Status Single Lives With none Prior Living Arrangements Skilled Nurse Facility Support System Child/Children Friend(s) Patient Discharge Plan Description Return Home Alf Facility/Rehab Comment Friend plans to stayw w/pt to assist with care at [place] after leaving [facility] Feels Safe in Current Environment Yes Been Physically Hurt or Threatened By a No Person in Current Environment Do you have thoughts of harming yourself None or others? Are you currently considering suicide? No Do you have a plan to hurt yourself or No Plan others? Do You Have Any Spiritual Beliefs That No May Affect Your HC Choices? Do You Have Any Cultural Practices That No May Affect Your HC Choices? Spiritual Referral None Comment [employer] Who Can We Speak to About Patient's Care Family, friends Identifying Code for Release of Patient Declines to issue Information Health Care Proxy/Next of Kin Gina Wheat (friend) or Jeni Sanchez (daughter) Health Care Proxy Phone Number Gina: [phone] Jeni: Emergency Contact Name Gina Wheat (friend) or Jeni Sanchez (daughter) Emergency Contact Phone Number Gina: [phone] Jeni: [phone] Advance Directives? No Power of Dip Filler No PAC Instructions Durable medical equipment Medications to take/avoid No ETOH/petroleum product on skin DOS NPO Post-op transportation Sturdy shoes/comfortable clothes Do not bring valuables and remove jewelry
[2019-05-17] MEDS: LACTATED RINGERS 500 ML IV ×2 (16:22→18:03)
--- NOTE | 2019-05-17 16:47 | PT.IPTN ---
Current Diagnoses Fracture of unspecified part of neck of left femur, initial encounter for closed fracture (05/16/19) Surgery Performed Operation Date: 05/16/19 12:00 Actual Procedures p Complex Posterior Total Hip Arthroplasty(Left) - Linda Baer MD Physical Therapy Treatment Note M3 PT-IP Subjective Start: 05/17/19 11:54 Freq: NEEDED Status: Active Protocol: Document 05/17/19 16:45 AB (Rec: 05/17/19 16:47 AB [id number]) Subjective Physical Therapy Visit Type Notes per nurse, pt's BP is not stable and is not ready for PT at this time. per nurseBP in supine 113/46, sitting with HOB upright: BP 50/25. Will check on pt tomorrow.
--- NOTE | 2019-05-17 17:35 | PC.NURSE ---
Addendum entered by Katherin Murrell R.N. 05/17/19 22:11: 2130 - Pt drowsy, however awakens to light stimuli and is appropriate. Able to take HS meds without difficulty. PRBC infusion complete. 2nd 500cc bolus of LR complete. IVF resumed at 75cc/hr. VSS. Monitor. Addendum entered by Katherin Murrell R.N. 05/17/19 19:23: 1910 - Pt turned, repositioned, Pericare and barrier cream applied. Left tilt/side lying. One unit PRBC initated as ordered. Bolus and IVF on hold with PRBC infusion Per MD verbal. Original Note: 0535 -Dr. Kent notified of low urine output on day shift. Bolus order obtained. Pt sitting up in bed. Sorting through belongings. States that she would like to know what her pain medication schedule is. Discussed pain medication, pain level and availability. Pt states that she does not want to take APAP scheduled. Request oxycodone. When medication was provided to pt. Pt states no I want that at bedtime. Pt now requesting APAP. Given as ordered. Pt became tremulous and appeared dazed. States I think I need to lay down. BP cycled, 51/25. Bolus initiated as ordered. Recycle of BP on 3rd attempt, 109/54 while lying flat. Pt resting with eyes closed but denies dizziness or chest pain. 1720 - Bolus nearly complete. Tele with the appearance of T-wave changes. Dr. Kent notified. Order for EKG obtained. Dr. Baer also rounded on pt at 1725 and gave verbal order to recheck HCT. BP at 1725 with bolus infusion complete. 120/54, HR 98. Urine 24cc in urometer. Pt denies lightheadedness, dizziness or chest pain. Monitor.
--- NOTE | 2019-05-17 17:42 | PM.PN.1 ---
Subjective Date Patient Seen: 05/17/19 Time Patient Seen: 07:43 Interval history: Patient seen last p.m. at 830 and this morning at 7:50 a.m. as well as today at 5:40 p.m.. She has some continued problems with some hypotension although we have been able to wean her off of pressors during the day. She was successfully extubated today. She is alert she is oriented she is asking appropriate questions and she notes that she is not short of breath. She denies any chest pain. She does note some mild to moderate left hip pain. She is also having some pain in her buttocks she did have a preoperative used infection in her perineum. She has not been out of bed yet with physical therapy and is currently being closely monitored by the hospitalist and nursing. Exam Vital Signs (past 8 hours): - 05/17/19 10:00 05/17/19 10:30 05/17/19 11:00 Temperature 98.0 F 98.3 F Pulse Rate 105 H 111 H 108 H Respiratory Rate 12 21 21 Blood Pressure 94/60 100/57 L 118/55 L Pulse Oximetry 97 98 98 05/17/19 11:30 05/17/19 11:38 05/17/19 12:00 Temperature 98.0 F Pulse Rate 114 H 112 H Respiratory Rate 9 L 7 L Blood Pressure 86/57 L 96/47 L Pulse Oximetry 99 99 98 05/17/19 12:10 05/17/19 12:30 05/17/19 13:00 Temperature Pulse Rate 104 H 116 H Respiratory Rate 13 16 Blood Pressure 98/65 113/59 L Pulse Oximetry 99 98 98 05/17/19 13:30 05/17/19 13:45 05/17/19 14:00 Temperature Pulse Rate 111 H 122 H Respiratory Rate 21 16 Blood Pressure 88/66 L 93/43 L Pulse Oximetry 98 99 94 05/17/19 14:30 05/17/19 15:00 05/17/19 15:38 Temperature 98.7 F 97.8 F Pulse Rate 108 H 107 H 110 H Respiratory Rate 19 12 20 Blood Pressure 98/50 L 95/48 L 96/56 L Pulse Oximetry 96 96 96 Fraction of Inspired Oxygen 30 Oxygen Delivery Method Mechanical Ventilation Oxygen Flow Rate 2 Narrative Exam Narrative: Her dressing is dry, her abdomen soft and benign her harmony drain is intact and her drain is intact. She is able to fire toe flexors and extensors knows no significant swelling in the left lower extremity, there is some shortening of the left leg which was also noted preoperatively. She has essentially no pain with gentle range of motion in her left hip. Her leg is in an externally rotated position but she does not have pain with internal rotation. Objective Labs Result Diagrams: 05/17/19 06:10 05/17/19 06:10 Labs: Laboratory Results - last 24 hr 05/16/19 05/16/19 05/16/19 10:54 19:45 20:19 WBC RBC Hgb 8.9 L Hct 26.8 L MCV MCH MCHC RDW Plt Count Neut % (Auto) Lymph % (Auto) Carbon % (Auto) Eos % (Auto) Baso % (Auto) Neut # (Auto) Lymph # (Auto) Carbon # (Auto) Eos # (Auto) Baso # (Auto) ABG pH ABG pCO2 ABG pO2 ABG HCO3 ABG Total CO2 ABG O2 Saturation ABG Base Excess FiO2 Sodium Potassium Chloride Carbon Dioxide BUN Creatinine Estimated GFR BUN/Creatinine Ratio Glucose Lactate Calcium Magnesium Total Bilirubin AST ALT Alkaline Phosphatase Troponin I Total Protein Albumin Globulin Albumin/Globulin Ratio Procalcitonin Specimen Hemolysis Nasal Screen MRSA (PCR) Negative for mrsa Blood Type B Positive Antibody Screen Negative Crossmatch See Detail 05/16/19 05/16/19 05/16/19 20:19 20:19 20:48 WBC RBC Hgb Hct MCV MCH MCHC RDW Plt Count Neut % (Auto) Lymph % (Auto) [place] % (Auto) Eos % (Auto) Baso % (Auto) Neut # (Auto) Lymph # (Auto) [place] # (Auto) Eos # (Auto) Baso # (Auto) ABG pH 7.32 L ABG pCO2 27.1 L ABG pO2 226 H ABG HCO3 14 L ABG Total CO2 15 L ABG O2 Saturation 100 ABG Base Excess -12.0 L FiO2 50 Sodium 132 L Potassium 4.9 Chloride 108 H Carbon Dioxide 16 L BUN 19 H Creatinine 0.70 Estimated GFR > 60.0 BUN/Creatinine Ratio 27.1 H Glucose 224 H Lactate Calcium 7.1 L Magnesium 1.5 L Total Bilirubin AST ALT Alkaline Phosphatase Troponin I < 0.012 Total Protein Albumin Globulin Albumin/Globulin Ratio Procalcitonin Specimen Hemolysis Nasal Screen MRSA (PCR) Blood Type Antibody Screen Crossmatch 05/16/19 05/16/19 05/16/19 21:40 21:40 21:40 WBC RBC Hgb Hct MCV MCH MCHC RDW Plt Count Neut % (Auto) Lymph % (Auto) Carbon % (Auto) Eos % (Auto) Baso % (Auto) Neut # (Auto) Lymph # (Auto) [place] # (Auto) Eos # (Auto) Baso # (Auto) ABG pH ABG pCO2 ABG pO2 ABG HCO3 ABG Total CO2 ABG O2 Saturation ABG Base Excess FiO2 Sodium 132 L Potassium 4.7 Chloride 108 H Carbon Dioxide 16 L BUN 18 H Creatinine 0.80 Estimated GFR > 60.0 BUN/Creatinine Ratio 22.5 H Glucose 238 H Lactate 3.8 H Calcium 7.2 L Magnesium Total Bilirubin AST ALT Alkaline Phosphatase Troponin I Total Protein Albumin Globulin Albumin/Globulin Ratio Procalcitonin 0.15 Specimen Hemolysis Nasal Screen MRSA (PCR) Blood Type Antibody Screen Crossmatch 05/16/19 05/16/19 05/17/19 23:59 23:59 05:11 WBC RBC Hgb 8.1 L Hct 25.2 L MCV MCH MCHC RDW Plt Count Neut % (Auto) Lymph % (Auto) Carbon % (Auto) Eos % (Auto) Baso % (Auto) Neut # (Auto) Lymph # (Auto) [place] # (Auto) Eos # (Auto) Baso # (Auto) ABG pH 7.31 L ABG pCO2 28.3 L ABG pO2 140 H ABG HCO3 14 L ABG Total CO2 15 L ABG O2 Saturation 99 ABG Base Excess -12.0 L FiO2 30 Sodium Potassium Chloride Carbon Dioxide BUN Creatinine Estimated GFR BUN/Creatinine Ratio Glucose Lactate 3.9 H Calcium Magnesium Total Bilirubin AST ALT Alkaline Phosphatase Troponin I Total Protein Albumin Globulin Albumin/Globulin Ratio Procalcitonin Specimen Hemolysis Nasal Screen MRSA (PCR) Blood Type Antibody Screen Crossmatch 05/17/19 05/17/19 05/17/19 06:10 06:10 06:10 WBC 17.5 H D RBC 3.13 L Hgb Cancelled 8.9 L Hct Cancelled 26.6 L MCV 85.0 D MCH 28.3 MCHC 33.3 RDW 17.3 H Plt Count 187 Neut % (Auto) 84.5 H Lymph % (Auto) 10.7 L Carbon % (Auto) 3.6 Eos % (Auto) 0.0 L Baso % (Auto) 1.2 Neut # (Auto) 43631 H Lymph # (Auto) 1900 Carbon # (Auto) 600 Eos # (Auto) 0 Baso # (Auto) 200 H ABG pH ABG pCO2 ABG pO2 ABG HCO3 ABG Total CO2 ABG O2 Saturation ABG Base Excess FiO2 Sodium Cancelled Potassium Cancelled Chloride Cancelled Carbon Dioxide Cancelled BUN Cancelled Creatinine Cancelled Estimated GFR Cancelled BUN/Creatinine Ratio Cancelled Glucose Cancelled Lactate Calcium Cancelled Magnesium Total Bilirubin AST ALT Alkaline Phosphatase Troponin I 0.095 H Total Protein Albumin Globulin Albumin/Globulin Ratio Procalcitonin Specimen Hemolysis Cancelled Nasal Screen MRSA (PCR) Blood Type Antibody Screen Crossmatch 05/17/19 05/17/19 05/17/19 06:10 06:10 07:05 WBC RBC Hgb Hct MCV MCH MCHC RDW Plt Count Neut % (Auto) Lymph % (Auto) Carbon % (Auto) Eos % (Auto) Baso % (Auto) Neut # (Auto) Lymph # (Auto) [place] # (Auto) Eos # (Auto) Baso # (Auto) ABG pH ABG pCO2 ABG pO2 ABG HCO3 ABG Total CO2 ABG O2 Saturation ABG Base Excess FiO2 Sodium 133 L Potassium 4.8 Chloride 111 H Carbon Dioxide 17 L BUN 19 H Creatinine 0.80 Estimated GFR > 60.0 BUN/Creatinine Ratio 23.8 H Glucose 173 H Lactate 1.3 Calcium 6.7 L Magnesium 1.7 Total Bilirubin 0.7 AST 26 ALT 22 Alkaline Phosphatase 59 Troponin I Total Protein 3.9 L Albumin 1.7 L Globulin 2.2 Albumin/Globulin Ratio 0.8 L Procalcitonin 0.30 Specimen Hemolysis Nasal Screen MRSA (PCR) Blood Type Antibody Screen Crossmatch 05/17/19 12:05 WBC RBC Hgb Hct MCV MCH MCHC RDW Plt Count Neut % (Auto) Lymph % (Auto) Carbon % (Auto) Eos % (Auto) Baso % (Auto) Neut # (Auto) Lymph # (Auto) [place] # (Auto) Eos # (Auto) Baso # (Auto) ABG pH 7.56 H ABG pCO2 13.2 L* ABG pO2 136 H ABG HCO3 12 L ABG Total CO2 12 L ABG O2 Saturation 100 ABG Base Excess -10.0 L FiO2 0.30 Sodium Potassium Chloride Carbon Dioxide BUN Creatinine Estimated GFR BUN/Creatinine Ratio Glucose Lactate Calcium Magnesium Total Bilirubin AST ALT Alkaline Phosphatase Troponin I Total Protein Albumin Globulin Albumin/Globulin Ratio Procalcitonin Specimen Hemolysis Nasal Screen MRSA (PCR) Blood Type Antibody Screen Crossmatch Assessment & Plan Assessment & Plan narrative: Clinically improving still with concerns regarding relative hypotension and fairly low he urine output. I have recommended that we get a repeat hematocrit and hemoglobin. She is being closely followed by the hospitalist for her medications and she ultimately is significantly positive on her fluid status and will need diuresis as her blood pressure tolerates. A tachyarrhythmia is improved in comparison to previously. She reportedly has mildly abnormal troponin. The overall plan is to continue her in an abduction brace and toes she is alert and oriented and able to mobilized slowly with physical therapy. As per Infectious Disease recommendations we are going to continue her IV ceftriaxone for at least 2 weeks postoperatively. Her cultures are no growth to date and her PCR is pending. Time Spent With Patient Time with patient: Greater than 35 minutes
[2019-05-17 17:52] LABS: Hemoglobin 7.5 g/dL (12.0-16.0)
--- NOTE | 2019-05-17 17:56 | PM.EVENT ---
Date Patient Seen: 05/17/19 Overall improving. Extubated and weaned off pressors. Still with low urine output. EKG reveals new twave inversions in the anteriolateral leads. REpeat Troponin pending. Fluid positive by over 4 liters. Blood pressure still low . Will continue to push fluids and monitor. Patient is awake and responsive.
[2019-05-17 17:58] LABS: Hematocrit 22.9 % (36-46)
[2019-05-17] MEDS: INSULIN ASPART 100 UNIT/ML INSULN PEN SUBCUT (18:04)
--- NOTE | 2019-05-17 18:53 | PM.EVENT ---
Date Patient Seen: 05/17/19 Patient is a 73-year-old female who is status post left hip surgery. She developed significant hypotension hypovolemic shock and respiratory failure yesterday. She remained hypotensive throughout most of the requiring pressors for blood pressure support. Her troponin became elevated today 2.20. EKG shows some new T-wave changes per patient is without chest pain and is recovering well. Given her recent SIRS and most recent bleed unlikely to intervene immediately. Will follow her symptomatically.
[2019-05-17] MEDS: OXYCODONE IR 5 MG TABLET PO (19:33)
[2019-05-17] MEDS: ASPIRIN EC 81 MG TABLET PO (21:05)
[2019-05-17] MEDS: INSULIN GLARGINE 100 UNIT/ML 3ML PEN 10 UNIT SUBCUT (21:05)
[2019-05-17] MEDS: DOCUSATE 100 MG CAPSULE PO (21:05)
[2019-05-17] MEDS: FAMOTIDINE 20 MG/50 ML PIGGYBACK 200 MG IV (21:11)
[2019-05-18] VITALS (17 sets, daily range): BP systolic 92–124; BP diastolic 38–57; PULSE 68–113; RESP 12–19; TEMP 35.9–37.3; O2SAT 91–98
[2019-05-18] MEDS: OXYCODONE IR 5 MG TABLET PO ×3 (02:40→19:25)
[2019-05-18] MEDS: KCL 40 MEQ IN NS 1,000 ML 75 MEQ IV (04:42)
[2019-05-18] MEDS: PIPERACILLIN-TAZO 3.375 GM/50 ML FROZ.PIGGY IV ×2 (04:50→10:00)
[2019-05-18 05:04] LABS: Add Manual Diff / Slide Review NO; Basophils Absolute Auto 100 /uL (0-100); Basophils Percent Auto 0.4 % (0-2); Eosinophils Absolute Auto 0 /uL (0-450); Hematocrit 22.2 % (36-46); Hemoglobin 7.4 g/dL (12.0-16.0); Lymphocytes Absolute Auto 2100 /uL (1100-4500); Lymphocytes Percent Auto 12.4 % (25-40); Mean Corpuscular HGB Conc 33.4 % (30-36); Mean Corpuscular Hemoglobin 29.1 PG (26-34); Mean Corpuscular Volume 87.1 fL (80-100); Monocytes Absolute Auto 1100 /uL (0-900); Monocytes Percent Auto 6.7 % (3-14); Neutrophils Absolute Auto 13700 /uL (1500-7000); Neutrophils Percent Auto 80.5 % (50-75); Platelet Count 161 X10^3/uL (150-400); Red Blood Cell Count 2.55 X10^6/uL (4.0-5.2); Red Cell Distribution Width 17.6 % (11.6-14.8)
[2019-05-18 05:13] LABS: B Type Natriuretic Peptide < 100 (<100)
[2019-05-18 05:14] LABS: BUN Creatinine Ratio 26.3 (6-22); Blood Urea Nitrogen 21 mg/dL (7-17); Calcium 7.8 mg/dL (8.4-10.2); Carbon Dioxide 18 mmol/L (22-32); Chloride 112 mmol/L (98-107); Estimated Glomerular Filt Rate > 60.0 mL/min (>60); Glucose 103 mg/dL (80-110); HEMOLYSIS < 15 (0-50); Magnesium 1.9 mg/dL (1.6-2.3); Potassium 4.2 mmol/L (3.4-5.1); Sodium 135 mmol/L (137-145)
[2019-05-18 05:36] LABS: Troponin I 0.199 ng/mL (0.01-0.034)
--- NOTE | 2019-05-18 05:57 | PC.NURSE ---
NOC Shift: Pt. POD 2 for complicated left hip replacement following infected hardware. Pt extubated yesterday to 1L NC weaned off O2 tonight per pt request. Sats stable low to mid 90's. NSR w/inverted T wave aware. T wave changes on 12lead EKG and positive troponins trending down this AM. Pt will have ECHO done today. Continues to have low SBP 90 to low 100 thru shift following 6th unit RBC, and more fluid boluses on evening shift. MAP stable >65. H&H this AM unchanged 7.4/22.2. Left hip dsg CDI, abductor pillow in place, PICCO drain functioning. CSM to left foot WNL. Pt taking appropriate amt. of pain meds w/good result. Remains ICU care.
--- NOTE | 2019-05-18 06:00 | DI.RAD.S_ITS ---
PROCEDURE: XR CHEST 1V INDICATIONS: congestive heart failure TECHNIQUE: One view of the chest was acquired. COMPARISON: [facility], CR, XR CHEST 1V, 05/17/2019, 5:12. [facility], CR, XR CHEST 1V, 05/16/2019, 20:06. [facility], CR, XR CHEST 1V, 05/16/2019, 19:32. FINDINGS: Surgical changes and devices: The endotracheal tube and the gastric tube have been removed. A left-sided PICC line remains, with the tip overlying the medial aspect of the left brachiocephalic vein, not quite reaching the superior vena cava. Lungs and pleura: Mild interstitial prominence is seen. Mild, streaky opacities are seen at the lung bases. On this semiupright portable chest examination, no large pneumothorax or large pleural effusions are seen. An incomplete inspiratory result is noted, causing a crowded appearance to the lung markings. Mediastinum: The cardiac contours are within normal limits. The aorta demonstrates calcification and tortuosity. Bones and chest wall: Age-appropriate bony degenerative changes are seen. No suspicious bony lesions. Overlying soft tissues appear unremarkable. IMPRESSION: Interstitial prominence is seen, which is consistent with the given history of congestive heart failure. Atelectasis versus mild infiltrates at the lung bases. Dictated by: Lucien Tinsley M.D. on 05/18/2019 at 7:07 Approved by: Lucien Tinsley M.D. on 05/18/2019 at 7:09
--- NOTE | 2019-05-18 07:17 | DI.ECHO.S_ITS ---
[facility] +---------+ : : [address] [place] : : : : [id number] : : : : Phone: [phone]+ Echocardiogram Report + + :Name: EARL ROGEL Study Date: 05/18/2019 Height: 65 in : :[facility] Weight: 167 lb : : Gender: Female BSA: 1.8 m2 : :: 1945 Age: 73 yrs BP: 113/56 mmHg: :Reason For Study: ELEVATED TROPONIN : : Performed By: Spencer Villareal : :Referring: REJI BARAJAS : + + Interpretation Summary 1) Normal left ventricular thickness, size, wall motion, and systolic function (EF 55-60%). 2) Normal right ventricular size and function. 3) No significant valvular abnormalities. 4) Compared to the Echo done 04/03/2019, no significant change. Procedure: A two-dimensional transthoracic echocardiogram with color flow and Doppler was performed. The study quality was technically adequate. Comparison is made with the echocardiogram of 04/03/19. The patient was in normal sinus rhythm during the exam. Left Ventricle: The left ventricle is normal in size. There is normal left ventricular wall thickness. The ejection fraction is estimated to be 55-60%. There are no focal wall motion abnormalities. Right Ventricle: The right ventricle is normal in size and function. Atria: The left atrium is mildly dilated. Right atrial size is normal. The interatrial septum is intact with no evidence for an atrial septal defect. Mitral Valve: There is moderate mitral annular calcification. There is trace mitral regurgitation. Aortic Valve: The aortic valve is trileaflet. The aortic valve is slightly calcified. The aortic valve opens well. There is no aortic valve stenosis. No aortic regurgitation is present. Tricuspid Valve: The tricuspid valve is normal in structure and function. There is trace tricuspid regurgitation. The right ventricular systolic pressure is estimated to be at least 32 mmHg based on an estimated right atrial pressure of 3 mm Hg. Pulmonic Valve: The pulmonic valve is normal in structure and function. There is trace pulmonic regurgitation. Great Vessels: The aortic root is normal size. The dimensions of the ascending aorta are normal. The pulmonary artery is normal size. The IVC is of normal diameter and collapses greater than 50% with a sniff. This suggests a low right atrial pressure of 3 mm Hg. Pericardium/ Pleura There is no pericardial effusion. There is no pleural effusion. MMode/2D Measurements & Calculations LVIDd: 4.4 cm LVOT diam: 2.0 cm LVIDs: 3.0 cm Ao root diam: 2.9 cm FS: 30.4 % Aortic Jxn: 2.0 cm EPSS: 0.47 cm asc Aorta Diam: 3.1 cm IVSd: 0.89 cm Ao Arch Diam (Prox Trans): 2.5 cm LVPWd: 1.0 cm LV thao. diameter/BSA (cm/m^2): 2.4 LV sys. diameter/BSA (cm/m^2): 1.7 LA dimension: 4.1 cm RA long axis: 4.3 cm LA A2 area: 22.8 cm2 RA area: 13.1 cm2 LA A4 area: 22.0 cm2 RA vol: 33.5 ml LA length (vol): 5.6 cm RA : 18.3 ml/m2 LA vol: 75.8 ml IVC diam: 2.1 cm LA vol index: 41.4 ml/m2 Doppler Measurements & Calculations Ao V2 max: 146.9 cm/sec LVOT Max Volodymyr: 108.6 cm/sec Ao V2 mean: 102.9 cm/sec LV V1 max P.7 mmHg Ao max P.6 mmHg LV V1 VTI: 22.3 cm Ao mean P.6 mmHg VINOD(I,D): 2.4 cm2 Ao V2 VTI: 28.5 cm VINOD(V,D): 2.2 cm2 sev ratio: 0.78 VINOD indexed to BSA (cm^2/m^2): 1.3 MV E max volodymyr: 94.4 cm/sec TR max volodymyr: 271.3 cm/sec MV A max volodymyr: 106.7 cm/sec TR max P.4 mmHg MV E/A: 0.88 PA V2 max: 77.0 cm/sec Med Peak E' Volodymyr: 5.0 cm/sec PA V2 mean: 58.7 cm/sec E/E' med: 19.1 PA mean P.4 mmHg Lat Peak E' Volodymyr: 5.8 cm/sec PA pr(Accel): 54.0 mmHg E/E' lat: 16.3 PA Accel Time: 0.06 sec E/e' average: 17.7 MV dec time: 0.20 sec SV(LVOT): 67.7 ml Reading Physician:04:44 PM
[2019-05-18] MEDS: ACETAMINOPHEN 325 MG TABLET 975 MG PO ×3 (09:35→20:10)
[2019-05-18] MEDS: DOCUSATE 100 MG CAPSULE PO ×2 (09:35→20:11)
[2019-05-18] MEDS: hydrOXYzine pamoate 25 MG CAPSULE PO (09:35)
--- NOTE | 2019-05-18 09:38 | PT.IPTN ---
Current Diagnoses Fracture of unspecified part of neck of left femur, initial encounter for closed fracture (05/16/19) Surgery Performed Operation Date: 05/16/19 12:00 Actual Procedures p Complex Posterior Total Hip Arthroplasty(Left) - Linda Baer MD Physical Therapy Treatment Note M3 PT-IP Subjective Start: 05/17/19 11:54 Freq: NEEDED Status: Active Protocol: Document 05/18/19 09:37 AB (Rec: 05/18/19 09:38 AB [id number]) Subjective Physical Therapy Visit Type Notes pt with Hgb of 7.4 and Hct of 22.2 and will be receiving transfusion this morning. will hold PT this morning and follow up in the afternoon.
[2019-05-18] MEDS: ASPIRIN EC 81 MG TABLET PO ×2 (09:41→20:10)
--- NOTE | 2019-05-18 10:00 | PM.PNPO.1 ---
Subjective Date Patient Seen: 05/18/19 Time Patient Seen: 10:01 Interval history: POD 2 s/p conversion of prior hip surgery to GIA, irrigation and debridement left hip with Dr. Baer. Patient doing very well this morning. Pain well controlled. She has not been up with PT. She has her abduction pillow in bed. Exam Vital Signs (past 8 hours): - 05/18/19 03:00 05/18/19 04:00 05/18/19 05:00 Temperature 96.7 F L Pulse Rate 85 84 81 Respiratory Rate 18 12 Blood Pressure 106/42 L 100/40 L 92/38 L Pulse Oximetry 92 91 92 05/18/19 06:00 05/18/19 06:53 05/18/19 07:09 Temperature 98.2 F 98.2 F Pulse Rate 87 77 78 Respiratory Rate 13 12 12 Blood Pressure 104/49 L 101/46 L 102/43 L Pulse Oximetry 96 05/18/19 09:00 05/18/19 09:18 05/18/19 09:35 Temperature 99.1 F 99.1 F Pulse Rate 78 72 Respiratory Rate 12 12 Blood Pressure 121/57 L 121/57 L Pulse Oximetry 96 Fraction of Inspired Oxygen 30 Oxygen Delivery Method Room Air Oxygen Flow Rate 2 Narrative Exam Narrative: In bed in no acute distress. She is alert and orient x3. Dressing on left hip is falling off. There is some edema around incision. Calves are soft, compressible, nontender bilaterally. Dorsalis pedis pulses 1+ bilaterally. Sensation intact to light touch throughout bilateral extremities. Objective Labs Result Diagrams: 05/18/19 04:43 05/18/19 04:43 Labs: Laboratory Results - last 24 hr 05/16/19 05/17/19 05/17/19 10:54 12:05 17:15 WBC RBC Hgb Hct MCV MCH MCHC RDW Plt Count Neut % (Auto) Lymph % (Auto) [place] % (Auto) Eos % (Auto) Baso % (Auto) Neut # (Auto) Lymph # (Auto) [place] # (Auto) Eos # (Auto) Baso # (Auto) ABG pH 7.56 H ABG pCO2 13.2 L* ABG pO2 136 H ABG HCO3 12 L ABG Total CO2 12 L ABG O2 Saturation 100 ABG Base Excess -10.0 L FiO2 0.30 Sodium Potassium Chloride Carbon Dioxide BUN Creatinine Estimated GFR BUN/Creatinine Ratio Glucose Calcium Magnesium Troponin I 0.210 H* B-Natriuretic Peptide Blood Type B Positive Antibody Screen Negative Crossmatch See Detail 05/17/19 05/18/19 05/18/19 17:42 04:43 04:43 WBC 17.0 H RBC 2.55 L Hgb 7.5 L 7.4 L Hct 22.9 L 22.2 L MCV 87.1 MCH 29.1 MCHC 33.4 RDW 17.6 H Plt Count 161 Neut % (Auto) 80.5 H Lymph % (Auto) 12.4 L [place] % (Auto) 6.7 Eos % (Auto) 0.0 L Baso % (Auto) 0.4 Neut # (Auto) 65534 H Lymph # (Auto) 2100 [place] # (Auto) 1100 H Eos # (Auto) 0 Baso # (Auto) 100 ABG pH ABG pCO2 ABG pO2 ABG HCO3 ABG Total CO2 ABG O2 Saturation ABG Base Excess FiO2 Sodium 135 L Potassium 4.2 Chloride 112 H Carbon Dioxide 18 L BUN 21 H Creatinine 0.80 Estimated GFR > 60.0 BUN/Creatinine Ratio 26.3 H Glucose 103 Calcium 7.8 L Magnesium 1.9 Troponin I 0.199 H* B-Natriuretic Peptide < 100 Blood Type Antibody Screen Crossmatch Assessment & Plan Post-op Postoperative Procedures Operation Date: 05/16/19 12:00 Actual Procedures Side Surgeon p Complex Posterior Total Hip Arthroplasty Left Linda Baer MD Patient will mobilize with physical therapy today. Weightbearing as tolerated. She only needs the abduction pillow when resting in bed. She will be moved up to the floor today. Catheter will be DC today. New dressing will be applied today. Hospitalist is managing patient as well. Once she is safe for discharge she will most likely go to SNF once medically stable.
--- NOTE | 2019-05-18 10:12 | PM.PN.1 ---
Subjective Date Patient Seen: 05/18/19 Interval history: Pleasant female resting comfortably. She denies shortness of breath. She does report some hip pain. No diarrhea, She notes some mild headache. No reports of chest pain. She is ready to advance her diet. She has excellent urine output, very good blood pressure and heart rate. She recieved her 7th unit of blood this morning without incident. Exam Vital Signs (past 8 hours): - 05/18/19 03:00 05/18/19 04:00 05/18/19 05:00 Temperature 96.7 F L Pulse Rate 85 84 81 Respiratory Rate 18 12 Blood Pressure 106/42 L 100/40 L 92/38 L Pulse Oximetry 92 91 92 05/18/19 06:00 05/18/19 06:53 05/18/19 07:09 Temperature 98.2 F 98.2 F Pulse Rate 87 77 78 Respiratory Rate 13 12 12 Blood Pressure 104/49 L 101/46 L 102/43 L Pulse Oximetry 96 05/18/19 09:00 05/18/19 09:18 05/18/19 09:35 Temperature 99.1 F 99.1 F Pulse Rate 78 72 Respiratory Rate 12 12 Blood Pressure 121/57 L 121/57 L Pulse Oximetry 96 Fraction of Inspired Oxygen 30 Oxygen Delivery Method Room Air Oxygen Flow Rate 2 Narrative Exam Narrative: Pleasant female resting comfortably Lungs: Clear to auscultation CV: RRR nl Sl S2 2/6 IGNACIA ABd: soft/ non tender/non distended Left hip: dressing in place, saturated, lower extremity with 2+edema Objective Labs Result Diagrams: 05/18/19 04:43 05/18/19 04:43 Labs: Laboratory Results - last 24 hr 05/16/19 05/17/19 05/17/19 10:54 12:05 17:15 WBC RBC Hgb Hct MCV MCH MCHC RDW Plt Count Neut % (Auto) Lymph % (Auto) [place] % (Auto) Eos % (Auto) Baso % (Auto) Neut # (Auto) Lymph # (Auto) [place] # (Auto) Eos # (Auto) Baso # (Auto) ABG pH 7.56 H ABG pCO2 13.2 L* ABG pO2 136 H ABG HCO3 12 L ABG Total CO2 12 L ABG O2 Saturation 100 ABG Base Excess -10.0 L FiO2 0.30 Sodium Potassium Chloride Carbon Dioxide BUN Creatinine Estimated GFR BUN/Creatinine Ratio Glucose Calcium Magnesium Troponin I 0.210 H* B-Natriuretic Peptide Blood Type B Positive Antibody Screen Negative Crossmatch See Detail 05/17/19 05/18/19 05/18/19 17:42 04:43 04:43 WBC 17.0 H RBC 2.55 L Hgb 7.5 L 7.4 L Hct 22.9 L 22.2 L MCV 87.1 MCH 29.1 MCHC 33.4 RDW 17.6 H Plt Count 161 Neut % (Auto) 80.5 H Lymph % (Auto) 12.4 L [place] % (Auto) 6.7 Eos % (Auto) 0.0 L Baso % (Auto) 0.4 Neut # (Auto) 73811 H Lymph # (Auto) 2100 [place] # (Auto) 1100 H Eos # (Auto) 0 Baso # (Auto) 100 ABG pH ABG pCO2 ABG pO2 ABG HCO3 ABG Total CO2 ABG O2 Saturation ABG Base Excess FiO2 Sodium 135 L Potassium 4.2 Chloride 112 H Carbon Dioxide 18 L BUN 21 H Creatinine 0.80 Estimated GFR > 60.0 BUN/Creatinine Ratio 26.3 H Glucose 103 Calcium 7.8 L Magnesium 1.9 Troponin I 0.199 H* B-Natriuretic Peptide < 100 Blood Type Antibody Screen Crossmatch Assessment & Plan Assessment & Plan narrative: 1. Hypovolemic Shock-resolved. The patient recieved over 10 liters of fluid and 7 units of blood. Her hemodynamic status has improved. She has been transitioned off pressors, extubated, and has excellent urine output. Will recheck her H/H tomorrow. Hopefully, no further transfusions will be needed. Will discontinue IVF today. D/C rashmi, Transfer to Medical Floor 2. S/P THR- ready to start PT today 3. Type 2 Myocardial infarction-Suspect demand ischemia from hypovolemic shock-Will await Echo today, will resume low dose Beta Angelique, continue Aspirin 4. Hypertension-Blood pressure control good, will resume medications if blood pressure increases further 5. Hypothyroidism-resume Lthyroxine today 6. Acute Blood Loss Anemia- received 7 unit of blood today, hopefully 7. Resume Vit C and Iron for anemia Patient is making excellent recovery
[2019-05-18] MEDS: METOPROLOL ER 25 MG TABLET 12.5 MG PO (10:57)
--- NOTE | 2019-05-18 12:38 | PT.IIE ---
Current Diagnoses Fracture of unspecified part of neck of left femur, initial encounter for closed fracture (05/16/19) Surgery Performed Operation Date: 05/16/19 12:00 Actual Procedures p Complex Posterior Total Hip Arthroplasty(Left) - Linda Baer MD Surgical History (Last Reviewed 05/16/19 @ 23:04 by ANDRES Dutta) Status post hip surgery (Acute 04/02/19) Status post hip surgery (Acute ~02/2019) History of myomectomy (Chronic) History of thyroidectomy (Inactive) Medical History (Last Reviewed 05/16/19 @ 23:04 by ANDRES Dutta) RLS (restless legs syndrome) (Acute) History of cervical cancer (Acute) Hypertension (Chronic) Hypothyroid (Chronic) Thyroid cancer (Chronic) Physical Therapy Inpatient Evaluation/Re-Eval M1 PT/OT-IP Prior Functional Status Start: 05/17/19 11:54 Freq: NEEDED Status: Active Protocol: Document 05/18/19 12:38 AB (Rec: 05/18/19 14:26 AB [id number]) Medical Review Prior Functional Status Medical History Reviewed Yes Communication able to make needs known Mobility and Gait pt stated that prior to hip fracture she was independent with all mobilities and ambulation without AD Prior Functional Level (Other details) pt sustained a hip fracture last february 2019 and underwent ORIF. pt had hardware failure and underwent surgery for removal and space in march. pt has been residing at [facility] and was receiving antibiotics. pt admitted recently for a GIA on L. Social History Household Members none Living Arrangements House Number of Floors (Floors) Two Floors Number of Stairs To Enter/Railing? pt stays on main level of the house has 4 steps to enter with L rail ascending from the back of the house Home Environment Standard Height Toilet Tub/Shower Home Equipment Bedside Commode Hand Held Shower M2 PT-IP Current Condition Start: 05/17/19 11:54 Freq: NEEDED Status: Active Protocol: Document 05/18/19 12:38 AB (Rec: 05/18/19 14:26 AB [id number]) Physical Therapy Current Condition Current Condition Evaluation Date 05/18/19 Treatment Diagnosis s/p L GIA posterior approach; difficulty in walking Onset Date Precautions Posterior Hip Precautions No Hip Flexion > 90 degrees No Hip Internal Rotation No Hip Adduction Weight Bearing Status Weight Bearing Status Weight Bear as Tolerated M3 PT-IP Subjective Start: 05/17/19 11:54 Freq: NEEDED Status: Active Protocol: Document 05/18/19 12:38 AB (Rec: 05/18/19 14:26 AB [id number]) Subjective Physical Therapy Visit Type Type Initial Evaluation Visit Start Time 12:38 Visit Stop Time 13:19 Total Visit Minutes 41 Number of STITCHING DEPARTMENT SUPERVISOR Visits 0 Physical Therapy Visit Comments Patient Comments pt stated that all she will be doing today and sit up on EOB and does not want to get out of the bed because she had a major surgery and is still very weak. Therapy Pain Assessment Pain When Pain Assessed At Rest Pain Present Pain Present Pain Reported Location Left Hip Intensity 2 Pain Behaviors Guarding Holding Area Wincing Pain Management Techniques Apply Cold Re-positioning Timing of Activity with Medications M4 PT-IP Mobility and Gait Start: 05/17/19 11:54 Freq: NEEDED Status: Active Protocol: Document 05/18/19 12:38 AB (Rec: 05/18/19 14:26 AB [id number]) PT-Bed Mobility Assessment Supine to Sit Supine to Sit Maximum Assistance 2 Person Assistance Sit to Supine Sit to Supine Maximum Assistance 2 Person Assistance Scooting Scooting to Edge of Bed Maximum Assistance Scooting Up and Down in Bed Maximum Assistance PT-Transfer Assessment Comments Mobility Comments pt requires increase time to complete task and is not too receptive with instructions. pt completed supine to sit max A and max cues. required assist to move LE to EOB. pt sat on EOB and required mod A to maintain sitting balance with increaes posterior leaning noted. encourage pt to do standing but pt is adamant that she is not going to do so. instructed pt to scoot up towards HOB. required max A x 2 and max cues. completed sit to supine max A x2 and max cues and also required max A x 2 for positioning in bed. left pt with tower technician in room as pt will be getting an echo. PT-Balance Assessment Sitting Balance and Reactions Static Sitting Balance Ability Good Dynamic Sitting Balance Ability Fair M5 PT-IP Objective Assessments Start: 05/17/19 11:54 Freq: NEEDED Status: Active Protocol: Document 05/18/19 12:38 AB (Rec: 05/18/19 14:26 AB [id number]) Orientation Orientation/Cognition Level of Alertness Alert Orientation Name Safety Awareness Decreased Safety Awareness Memory Description Short Term Impaired Scrummaster Impaired Comments pt is alert but with confusion : pt though she is a [facility] Gross Range of Motion Lower Extremity ROM Assessment Left Impaired Impairments increase LLE guarding Strength Lower Extremity Strength Assessment Bilaterally Impaired Comments Strength Comments RLE: 4-/5 LLE: 3-/5 Coordination Assessment Gross Coordination Gross Coordination WNL Sensation Assessment Sensation Gross Sensation WNL Muscle Tone Muscle Tone WNL Yes M6 PT-IP Treatment Start: 05/17/19 11:54 Freq: NEEDED Status: Active Protocol: Document 05/18/19 12:38 AB (Rec: 05/18/19 14:26 AB [id number]) Physical Therapy Treatment Exercises Exercises Quad Sets Heel Slides Education Education Provided Precautions Weight Bearing Status Post-Op Packet Safety M7 PT-IP Assessment and Plan Start: 05/17/19 11:54 Freq: NEEDED Status: Active Protocol: Document 05/18/19 12:38 AB (Rec: 05/18/19 14:26 AB [id number]) PT Summary Assessment and Plan Potential Rehabilitation Potential Fair Status of Condition at Evaluation Evolving Summary Impairments Pain ROM Strength Balance Coordination Sensation Tone Cognition Bed Mobility Transfers Gait Activity Tolerance Assessment Summary pt requiring 2 person assist with bed mobility and refused to get out of bed. pt will require SNF rehab and pt stated that she is going back to [facility] and plans to go home afterwards. Goals Bed Mobility Goal Minimal Assistance Transfer Goal Minimal Assistance Front Wheeled Walker Gait Goal Minimal Assistance Front Wheel Walker Gait Distance 100 Days to Meet Goals 5 Frequency of Treatment Frequency Of Treatment Twice a Day Treatment Plan Physical Therapy Treatment Plan Bed Mobility Training Transfer Training Gait Training Therapeutic Exercise Balance Retraining Post Op Education Discharge Planning Hot or Cold Pack Neuromuscular Re-ed Coordination Retraining Manual Therapy Other Recommendations and Next Treatment transfers Focus Recommendations To Nursing Amount of Assist Needed PT/OT Assist Only Mechanical Lift Discharge Recommendations PT Discharge Recommendations SNF Rehab
--- NOTE | 2019-05-18 12:46 | CM.DPC ---
DCP Cont: Called [facility] and spoke to Fabiana Randle, who is case management specialist for this week-end. Let her know that the plan is for her to return to [facility], knowing that she will need a new authorization. Patient has not yet worked with physical therapy secondary to medical instability. She is having a transfusion today, but went ahead and faxed updated clinical notes to [facility]. She will review. P: DC to continue to follow up with [facility]. Will see if patient is able to work with physical therapy tomorrow, and can then fax over notes. [facility] will accept patient back, confirmed with [facility] today. Monica Rob RN/Crew Person
--- NOTE | 2019-05-18 13:19 | PC.NURSE ---
Addendum entered by Chichi Thorpe R.N. 05/18/19 13:27: order received from Dr Baer to leave caraballo in place for now Original Note: pt very resistant to any movement even tho this is pod # 2- will be more aggressive with turn schedule as she is refusing to stand with PT- terse with her denial/resistance questioning most things we are doing- lengthy explanation provided but still did not seem to satisfy her wish to be left alone and not move, harmony drain in place- pt refusing to do IS and have caraballo removed changed to floor care status and encouraged to take more po as she also has been saline locked- room air while awake, oxycodone prn and acetaminophen around the clock per md orders
[2019-05-18] MEDS: CEFTRIAXONE 2 GM/50 ML FROZ.PIGGY IV (15:46)
--- NOTE | 2019-05-18 16:27 | P.PN_ITS ---
Subjective Date Patient Seen: 05/18/19 Time Patient Seen: 16:20 Interval history: She is doing better overall she notes that she is not having any chest pain and she is not short of breath. She denies abdominal pain. She was able to sit up but did have some problems mobilizing out of bed today and did note some weakness both in her right and her left leg. She denies calf pain Exam Vital Signs (past 8 hours): - 05/18/19 09:00 05/18/19 09:18 05/18/19 09:35 Temperature 99.1 F 99.1 F Pulse Rate 78 72 Respiratory Rate 12 12 Blood Pressure 121/57 L 121/57 L Pulse Oximetry 96 05/18/19 10:33 05/18/19 11:48 05/18/19 11:59 Temperature 97.9 F Pulse Rate 72 68 69 Respiratory Rate 13 14 Blood Pressure 108/49 L Pulse Oximetry 91 95 05/18/19 16:06 Temperature 98 F Pulse Rate 113 H Respiratory Rate 18 Blood Pressure 113/53 L Pulse Oximetry 98 Fraction of Inspired Oxygen 30 Oxygen Delivery Method Room Air Oxygen Flow Rate 2 Narrative Exam Narrative: She is alert she is oriented she has appropriate abdomen soft and benign left hip dressing is dry there is mild swelling of her thigh she is able to fire her hip flexor on the left and hip abductors sensations intact in bilateral lower extremities and she could fire bilateral ankle dorsiflexors plantar flexors and toe flexors and extensors there is some shortening of the left leg which she notes is old and chronic, there is really minimal pain with passive range of motion in the left hip and there is no crepitation popping or pain, her resting position is external rotation bilaterally left greater than right Objective Labs Result Diagrams: 05/18/19 04:43 05/18/19 04:43 Labs: Laboratory Results - last 24 hr 05/16/19 05/17/19 05/17/19 10:54 17:15 17:42 WBC RBC Hgb 7.5 L Hct 22.9 L MCV MCH MCHC RDW Plt Count Neut % (Auto) Lymph % (Auto) [place]roquois % (Auto) Eos % (Auto) Baso % (Auto) Neut # (Auto) Lymph # (Auto) [place] # (Auto) Eos # (Auto) Baso # (Auto) Sodium Potassium Chloride Carbon Dioxide BUN Creatinine Estimated GFR BUN/Creatinine Ratio Glucose Calcium Magnesium Troponin I 0.210 H* B-Natriuretic Peptide Blood Type B Positive Antibody Screen Negative Crossmatch See Detail 05/18/19 05/18/19 04:43 04:43 WBC 17.0 H RBC 2.55 L Hgb 7.4 L Hct 22.2 L MCV 87.1 MCH 29.1 MCHC 33.4 RDW 17.6 H Plt Count 161 Neut % (Auto) 80.5 H Lymph % (Auto) 12.4 L [place] % (Auto) 6.7 Eos % (Auto) 0.0 L Baso % (Auto) 0.4 Neut # (Auto) 70265 H Lymph # (Auto) 2100 [place] # (Auto) 1100 H Eos # (Auto) 0 Baso # (Auto) 100 Sodium 135 L Potassium 4.2 Chloride 112 H Carbon Dioxide 18 L BUN 21 H Creatinine 0.80 Estimated GFR > 60.0 BUN/Creatinine Ratio 26.3 H Glucose 103 Calcium 7.8 L Magnesium 1.9 Troponin I 0.199 H* B-Natriuretic Peptide < 100 Blood Type Antibody Screen Crossmatch Assessment & Plan Assessment & Plan narrative: Status post complex left hip conversion of previous hip surgery to total hip arthroplasty and I and D with a known history of a strep infection in her left hip. Clinically she is improving and I anticipate she will undergo a diuresis in the next day or 2. I encouraged her to work with the nursing staff to mobilize out of bed to chair she should keep her hip in a relatively abducted position needs to be careful to avoid falls but it is okay for her to be full weight-bearing on the left lower extremity. We need to maintain posterior hip precautions for 6 weeks postoperatively. The plan is to keep her on IV ceftriaxone for at least 2 weeks and possibly 6 weeks postoperatively. I anticipate she will need discharge to rehab at some point in the future but anticipate at least several more hospital day stay. Her hematocrit was 22 this morning and she was given 1 additional unit of packed RBCs. I spoke with Dr. Kent and we are coordinating recommendations regarding her potential transfusions. Plan to continue to use only baby aspirin for DVT prophylaxis.
[2019-05-18] MEDS: FERROUS SULFATE 325 MG TABLET PO (16:56)
--- NOTE | 2019-05-18 18:48 | PC.NURSE ---
1844 - Patient requested to use bedside commode. Attempted to assist patient to commode with BOOKMOBILE LIBRARIAN, but before even moving patient refused and stated that she would just use the bedpan and that she will not get up and that she would just use the bedpan. Attempted to discuss getting up with patient including benefits of moving and that we would go at her pace, but she continued to refuse. BOOKMOBILE LIBRARIAN went to retrieve bedpan and patient then refused to use bedpan. Again discussed moving with patient and attempted to have patient use either the commode or bedpan, but she refused stating she would not do it and that she will not get up this evening.
[2019-05-18] MEDS: ASCORBIC ACID 500 MG TABLET PO (20:10)
[2019-05-18] MEDS: INSULIN GLARGINE 100 UNIT/ML 3ML PEN 10 UNIT SUBCUT (21:03)
[2019-05-19 00:25] VITALS: BP 120/50; PULSE 76; RESP 14; TEMP 36.2; O2SAT 97
[2019-05-19] MEDS: OXYCODONE IR 5 MG TABLET PO ×6 (01:42→20:41)
[2019-05-19] MEDS: hydrOXYzine pamoate 25 MG CAPSULE PO ×3 (01:42→18:12)
[2019-05-19] MEDS: LEVOTHYROXINE 75 MCG TABLET PO (05:17)
[2019-05-19 05:23] LABS: Add Manual Diff / Slide Review NO; Basophils Absolute Auto 0 /uL (0-100); Basophils Percent Auto 0.3 % (0-2); Eosinophils Absolute Auto 100 /uL (0-450); Hematocrit 24.7 % (36-46); Hemoglobin 8.3 g/dL (12.0-16.0); Lymphocytes Absolute Auto 2100 /uL (1100-4500); Lymphocytes Percent Auto 16.1 % (25-40); Mean Corpuscular HGB Conc 33.8 % (30-36); Mean Corpuscular Hemoglobin 29.5 PG (26-34); Mean Corpuscular Volume 87.2 fL (80-100); Monocytes Absolute Auto 1000 /uL (0-900); Monocytes Percent Auto 7.5 % (3-14); Neutrophils Absolute Auto 9800 /uL (1500-7000); Neutrophils Percent Auto 75.1 % (50-75); Platelet Count 164 X10^3/uL (150-400); Red Blood Cell Count 2.83 X10^6/uL (4.0-5.2); Red Cell Distribution Width 16.2 % (11.6-14.8)
[2019-05-19 05:32] LABS: BUN Creatinine Ratio 32.5 (6-22); Blood Urea Nitrogen 13 mg/dL (7-17); Calcium 8.1 mg/dL (8.4-10.2); Carbon Dioxide 20 mmol/L (22-32); Chloride 109 mmol/L (98-107); Estimated Glomerular Filt Rate > 60.0 mL/min (>60); Glucose 80 mg/dL (80-110); HEMOLYSIS < 15 (0-50); Potassium 3.7 mmol/L (3.4-5.1); Sodium 135 mmol/L (137-145)
[2019-05-19 08:14] VITALS: BP 122/53
[2019-05-19] MEDS: METOPROLOL ER 25 MG TABLET 12.5 MG PO (08:14)
[2019-05-19] MEDS: ACETAMINOPHEN 325 MG TABLET 975 MG PO ×3 (08:14→20:41)
[2019-05-19] MEDS: DOCUSATE 100 MG CAPSULE PO ×2 (08:14→20:42)
[2019-05-19] MEDS: POLYETHYLENE GLYCOL 3350 17 GM POWD.PACK PO (08:14)
[2019-05-19] MEDS: FERROUS SULFATE 325 MG TABLET PO ×2 (08:14→17:06)
[2019-05-19] MEDS: ASCORBIC ACID 500 MG TABLET PO ×2 (08:15→20:41)
--- NOTE | 2019-05-19 08:26 | CM.DPC ---
DCP Cont: Checked in with nurse, Chichi, at ICU. Faxed latest P.T. note from yesterday with [facility]. At this time, patient is a mechanical lift. Staff continuing to encourage patient to sit up for meals, as well as sit up on side of bed. Let Fabiana at [facility] know that patient could potentially be ready for discharge tomorrow, on fax. P: DCP to continue to follow closely. Will fax today's P.T. note to [facility] when received. Plan is for [facility] return, when she is medically stable. Monica Rob RN/Special Agent In Charge
[2019-05-19 08:33] VITALS: BP 122/53; PULSE 82; RESP 15; TEMP 36.6; O2SAT 92
--- NOTE | 2019-05-19 08:37 | PC.NURSE ---
Addendum entered by Chichi Thorpe R.N. 05/19/19 14:28: caraballo removed at 1145 and no void as of yet - pt continues to be particular about her positioning and care but has proven this shift she is able to do much more than previous- up to chair for each meal as per md recommendation and oxycodone given prn for pain- harmony drain in place and preparing fro dc back to [facility] soon to initiate rehab Addendum entered by Chichi Thorpe R.N. 05/19/19 10:20: pt agreeable to work with PT and did surprisingly well- assist of one and lasted only approx 5-10 minutes before requesting to go back to bed- which we assisted pt but informed her she would be out of bed for all meals here at hospital- she reports preferring to eat meals in bed- informed her of all reasons we would not be doing so here including aspiration pneumonia risks- we bargained for up tp chair for lunch with time of at least one hour up - caraballo to be removed at that time Original Note: pt medicated for c/o pain- left hip 04/24, head 5-04/24, and throat 01/23- scheduled tylenol given as well as oxycodone 5mg and vistaril 25mg. ;long discussion about premedicating prior to working with PT/OT as well need for bm- she is dismissive of any conversation r/t her increasing her mobility. She requests her narcotics be given on a schedule and this rn explained that we are unable to do that - it is on as needed basis- pt also stated I'm not going to because of no bowel movement (last reported bm prior to surgery)
--- NOTE | 2019-05-19 09:58 | PT.IPTN ---
Current Diagnoses Fracture of unspecified part of neck of left femur, initial encounter for closed fracture (05/16/19) Surgery Performed Operation Date: 05/16/19 12:00 Actual Procedures p Complex Posterior Total Hip Arthroplasty(Left) - Linda Baer MD Physical Therapy Treatment Note M2 PT-IP Current Condition Start: 05/17/19 11:54 Freq: NEEDED Status: Active Protocol: Document 05/18/19 12:38 AB (Rec: 05/18/19 14:26 AB [id number]) Physical Therapy Current Condition Current Condition Evaluation Date 05/18/19 Treatment Diagnosis s/p L GIA posterior approach; difficulty in walking Onset Date Precautions Posterior Hip Precautions No Hip Flexion > 90 degrees No Hip Internal Rotation No Hip Adduction Weight Bearing Status Weight Bearing Status Weight Bear as Tolerated M3 PT-IP Subjective Start: 05/17/19 11:54 Freq: NEEDED Status: Active Protocol: Document 05/19/19 09:32 DCW (Rec: 05/19/19 10:22 DCW [id number]) Subjective Physical Therapy Visit Type Type Treatment Note Visit Start Time 09:32 Visit Stop Time 09:58 Total Visit Minutes 26 Number of MATH SPECIALIST Visits 0 Physical Therapy Visit Comments Patient Comments Pt agreeable to PT today, interested in getting out of her chair Therapy Pain Assessment Pain When Pain Assessed At Rest Pain Present Pain Present Pain Reported Location Left Hip Intensity 2 Pain Behaviors Guarding Holding Area Wincing Pain Management Techniques Apply Cold Re-positioning Timing of Activity with Medications M4 PT-IP Mobility and Gait Start: 05/17/19 11:54 Freq: NEEDED Status: Active Protocol: Document 05/19/19 09:32 DCW (Rec: 05/19/19 10:22 DCW [id number]) PT-Bed Mobility Assessment Supine to Sit Supine to Sit Maximum Assistance 1 Person Assistance Scooting Scooting to Edge of Bed Maximum Assistance Scooting Up and Down in Bed Maximum Assistance PT-Transfer Assessment Sit to and From Stand Sit to and from Stand Minimal Assistance 1 Person Assistance Equipment Transfer Assistive Device Bed Rail Gait Belt Front Wheeled Walker Gait Assessment Gait Gait Assistance Required: Minimum Assistance 1 Person Assist Distance (Feet) 5 Able to Maintain Weight Bearing Status Yes During Gait Assistive Devices Assistive Device Gait Belt Front Wheeled Walker Gait Deviations General Gait Pattern Antalgic Decreased Stride Length Decreased Feet Clearance Flexed Trunk Lateral Trunk Lean Factors Limiting Gait Function Factors Limiting Gait Function Decreased Strength Limited Range of Motion Pain M5 PT-IP Objective Assessments Start: 05/17/19 11:54 Freq: NEEDED Status: Active Protocol: Document 05/18/19 12:38 AB (Rec: 05/18/19 14:26 AB [id number]) Orientation Orientation/Cognition Level of Alertness Alert Orientation Name Safety Awareness Decreased Safety Awareness Memory Description Short Term Impaired Piece Work Inspector Impaired Comments pt is alert but with confusion : pt though she is a [facility] Gross Range of Motion Lower Extremity ROM Assessment Left Impaired Impairments increase LLE guarding Strength Lower Extremity Strength Assessment Bilaterally Impaired Comments Strength Comments RLE: 4-/5 LLE: 3-/5 Coordination Assessment Gross Coordination Gross Coordination WNL Sensation Assessment Sensation Gross Sensation WNL Muscle Tone Muscle Tone WNL Yes M6 PT-IP Treatment Start: 05/17/19 11:54 Freq: NEEDED Status: Active Protocol: Document 05/19/19 09:32 DCW (Rec: 05/19/19 10:22 DCW [id number]) Physical Therapy Treatment Exercises Exercises Quad Sets Heel Slides Knee ROM Measurement MILAGROS AGUIRRE M7 PT-IP Assessment and Plan Start: 05/17/19 11:54 Freq: NEEDED Status: Active Protocol: Document 05/19/19 09:32 DCW (Rec: 05/19/19 10:22 DCW [id number]) PT Summary Assessment and Plan Summary Impairments Pain ROM Strength Balance Coordination Sensation Tone Cognition Bed Mobility Transfers Gait Activity Tolerance Assessment Summary Pt able to tolerate increased activity today, required repeat of hip precautions, admitted someone had told her before, but she was unclear what any of them were. Pt reported she could stay in the chair for 5 minutes while her bed was cleaned. Pt still far from PLOF, will likely require SNF rehab stay following discharge. Pt was left in recliner with call light within reach. Goals Bed Mobility Goal Minimal Assistance Transfer Goal Minimal Assistance Front Wheeled Walker Gait Goal Minimal Assistance Front Wheel Walker Gait Distance 100 Days to Meet Goals 5 Frequency of Treatment Frequency Of Treatment Twice a Day Treatment Plan Physical Therapy Treatment Plan Bed Mobility Training Transfer Training Gait Training Therapeutic Exercise Balance Retraining Post Op Education Discharge Planning Hot or Cold Pack Neuromuscular Re-ed Coordination Retraining Manual Therapy Other Recommendations and Next Treatment transfers Focus Recommendations To Nursing Amount of Assist Needed 1 Person Assist Discharge Recommendations PT Discharge Recommendations SNF Rehab
--- NOTE | 2019-05-19 11:43 | P.PN_ITS ---
Subjective Date Patient Seen: 05/19/19 Time Patient Seen: 11:42 Interval history: Patient status post irrigation and debridement of the left hip with placement of total hip arthroplasty. Patient is doing very well this morning and has been able to get up and sit in a chair for a little while. Exam Vital Signs (past 8 hours): - 05/19/19 08:14 05/19/19 08:33 Temperature 97.8 F Pulse Rate 82 Respiratory Rate 15 Blood Pressure 122/53 L 122/53 L Pulse Oximetry 92 Fraction of Inspired Oxygen 30 Oxygen Delivery Method Room Air Oxygen Flow Rate 0 Narrative Exam Narrative: On physical exam, patient is alert and oriented x3. No apparent distress. Patient's dressing is clean and dry. Positive dorsiflexion and plantar flexion of the toes and ankle. Nontender to palpation to the posterior aspect of the calves. Palpable pedal pulses. Objective Labs Result Diagrams: 05/19/19 04:40 05/19/19 04:40 Labs: Laboratory Results - last 24 hr 05/19/19 05/19/19 04:40 04:40 WBC 13.0 H RBC 2.83 L Hgb 8.3 L Hct 24.7 L MCV 87.2 MCH 29.5 MCHC 33.8 RDW 16.2 H Plt Count 164 Neut % (Auto) 75.1 H Lymph % (Auto) 16.1 L [place] % (Auto) 7.5 Eos % (Auto) 1.0 L Baso % (Auto) 0.3 Neut # (Auto) 9800 H Lymph # (Auto) 2100 [place] # (Auto) 1000 H Eos # (Auto) 100 Baso # (Auto) 0 Sodium 135 L Potassium 3.7 Chloride 109 H Carbon Dioxide 20 L BUN 13 Creatinine 0.40 L Estimated GFR > 60.0 BUN/Creatinine Ratio 32.5 H Glucose 80 Calcium 8.1 L Assessment & Plan Post-op Postoperative Procedures Operation Date: 05/16/19 12:00 Actual Procedures Side Surgeon p Complex Posterior Total Hip Arthroplasty Left Linda Baer MD Postoperative day: 3 Postoperative status: doing well Postoperative status narrative: Patient doing much better after a hip revision due to infection. Postoperative plan: routine post-op care Postoperative plan narrative: Patient is weight-bearing as tolerated and will continue to mobilize with physical therapy. Patient is going to need IV an tibiotics for up to 6 weeks. Time Spent With Patient less than 15 minutes
--- NOTE | 2019-05-19 11:49 | P.PN_ITS ---
Subjective Date Patient Seen: 05/19/19 Interval history: Patient is sitting up in bed without complaints. She reports her pain has improved significantly. She is not short of breath. She denies any chest pain. Patient is recovering from her surgery quite well without difficulty. Overnight her urine output has picked up. Her hematocrit has stabilized. Exam Vital Signs (past 8 hours): - 05/19/19 08:14 05/19/19 08:33 Temperature 97.8 F Pulse Rate 82 Respiratory Rate 15 Blood Pressure 122/53 L 122/53 L Pulse Oximetry 92 Fraction of Inspired Oxygen 30 Oxygen Delivery Method Room Air Oxygen Flow Rate 0 Narrative Exam Narrative: Pleasant female in no acute distress Lungs: Clear to auscultation Cardiac exam: Regular rate rhythm normal S1-S2 with a 2/6 systolic ejection murmur Abdomen: Soft and nontender Extremities: 1+ edema in the left lower extremity Objective Labs Result Diagrams: 05/19/19 04:40 05/19/19 04:40 Labs: Laboratory Results - last 24 hr 05/19/19 05/19/19 04:40 04:40 WBC 13.0 H RBC 2.83 L Hgb 8.3 L Hct 24.7 L MCV 87.2 MCH 29.5 MCHC 33.8 RDW 16.2 H Plt Count 164 Neut % (Auto) 75.1 H Lymph % (Auto) 16.1 L Caroline % (Auto) 7.5 Eos % (Auto) 1.0 L Baso % (Auto) 0.3 Neut # (Auto) 9800 H Lymph # (Auto) 2100 Caroline # (Auto) 1000 H Eos # (Auto) 100 Baso # (Auto) 0 Sodium 135 L Potassium 3.7 Chloride 109 H Carbon Dioxide 20 L BUN 13 Creatinine 0.40 L Estimated GFR > 60.0 BUN/Creatinine Ratio 32.5 H Glucose 80 Calcium 8.1 L Assessment & Plan Assessment & Plan narrative: ssessment & Plan narrative: 1. Hypovolemic Shock- resolved. The patient recieved over 10 liters of fluid and 7 units of blood. Her hemodynamic status has improved. She has been transitioned off pressors, extubated, and has excellent urine output. Will recheck her H/H tomorrow. Hopefully, no further transfusions will be needed. Will discontinue IVF today. D/C rashmi, Transfer to Medical Floor 2. S/P THR- ready to start PT today 3. Type 2 Myocardial infarction-Suspect demand ischemia from hypovolemic shock- Will await Echo today, will resume low dose Beta Angelique, continue Aspirin 4. Hypertension-Blood pressure control good, will resume medications if blood pressure increases further 5. Hypothyroidism-resume Lthyroxine today 6. Acute Blood Loss Anemia- received 7 unit of blood today, hopefully 7. Resume Vit C and Iron for anemia 8. Hyperglycemia, no evidence of diabetes. Blood sugar 80 this morning he will discontinue Lantus and cover with sliding scale as needed. Patient is making excellent recovery. Continue PT and OT, IV antibiotics anticipate discharge to the senior care unit sometime this week.
[2019-05-19 11:51] VITALS: PULSE 75
[2019-05-19] MEDS: ASPIRIN EC 81 MG TABLET PO ×2 (11:52→20:41)
--- NOTE | 2019-05-19 13:29 | PT.IPTN ---
Current Diagnoses Fracture of unspecified part of neck of left femur, initial encounter for closed fracture (05/16/19) Surgery Performed Operation Date: 05/16/19 12:00 Actual Procedures p Complex Posterior Total Hip Arthroplasty(Left) - Linda Baer MD Physical Therapy Treatment Note M2 PT-IP Current Condition Start: 05/17/19 11:54 Freq: NEEDED Status: Active Protocol: Document 05/18/19 12:38 AB (Rec: 05/18/19 14:26 AB [id number]) Physical Therapy Current Condition Current Condition Evaluation Date 05/18/19 Treatment Diagnosis s/p L GIA posterior approach; difficulty in walking Onset Date Precautions Posterior Hip Precautions No Hip Flexion > 90 degrees No Hip Internal Rotation No Hip Adduction Weight Bearing Status Weight Bearing Status Weight Bear as Tolerated M3 PT-IP Subjective Start: 05/17/19 11:54 Freq: NEEDED Status: Active Protocol: Document 05/19/19 13:10 DCW (Rec: 05/19/19 13:47 DCW [id number]) Subjective Physical Therapy Visit Type Type Treatment Note Visit Start Time 13:10 Visit Stop Time 13:29 Total Visit Minutes 19 Physical Therapy Visit Comments Patient Comments Pt refused to do anything this afternoon except to transfer chair->bed. I'm too tired. I can't lift my leg, I can't walk, I can't tell you my hip precautions. I'm too tired to do any of that. M4 PT-IP Mobility and Gait Start: 05/17/19 11:54 Freq: NEEDED Status: Active Protocol: Document 05/19/19 13:10 DCW (Rec: 05/19/19 13:47 DCW [id number]) PT-Bed Mobility Assessment Sit to Supine Sit to Supine Maximum Assistance 1 Person Assistance Scooting Scooting to Edge of Bed Maximum Assistance Scooting Up and Down in Bed Maximum Assistance PT-Transfer Assessment Sit to and From Stand Sit to and from Stand Minimal Assistance 1 Person Assistance Equipment Transfer Assistive Device Bed Rail Gait Belt Front Wheeled Walker Transfers Transfer Destination Bed Transfer Technique Stand Pivot Transfer Ability Level of Assist Minimal Assistance M5 PT-IP Objective Assessments Start: 05/17/19 11:54 Freq: NEEDED Status: Active Protocol: Document 05/18/19 12:38 AB (Rec: 05/18/19 14:26 AB [id number]) Orientation Orientation/Cognition Level of Alertness Alert Orientation Name Safety Awareness Decreased Safety Awareness Memory Description Short Term Impaired Intermediate Impaired Comments pt is alert but with confusion : pt though she is a FCC Gross Range of Motion Lower Extremity ROM Assessment Left Impaired Impairments increase LLE guarding Strength Lower Extremity Strength Assessment Bilaterally Impaired Comments Strength Comments RLE: 4-/5 LLE: 3-/5 Coordination Assessment Gross Coordination Gross Coordination WNL Sensation Assessment Sensation Gross Sensation WNL Muscle Tone Muscle Tone WNL Yes M6 PT-IP Treatment Start: 05/17/19 11:54 Freq: NEEDED Status: Active Protocol: Document 05/19/19 09:32 DCW (Rec: 05/19/19 10:22 DCW [id number]) Physical Therapy Treatment Exercises Exercises Quad Sets Heel Slides Knee ROM Measurement MILAGROS AGUIRRE M7 PT-IP Assessment and Plan Start: 05/17/19 11:54 Freq: NEEDED Status: Active Protocol: Document 05/19/19 13:10 DCW (Rec: 05/19/19 13:47 DCW [id number]) PT Summary Assessment and Plan Summary Impairments Pain ROM Strength Balance Coordination Sensation Tone Cognition Bed Mobility Transfers Gait Activity Tolerance Assessment Summary Despite multiple attempts by therapist to get patient more involved in therapy and to agree to perform more activity , pt flat-out refused to perform any activity other than transfer back to bed. Goals Bed Mobility Goal Minimal Assistance Transfer Goal Minimal Assistance Front Wheeled Walker Gait Goal Minimal Assistance Front Wheel Walker Gait Distance 100 Days to Meet Goals 5 Frequency of Treatment Frequency Of Treatment Twice a Day Treatment Plan Physical Therapy Treatment Plan Bed Mobility Training Transfer Training Gait Training Therapeutic Exercise Balance Retraining Post Op Education Discharge Planning Hot or Cold Pack Neuromuscular Re-ed Coordination Retraining Manual Therapy Other Recommendations and Next Treatment transfers Focus Recommendations To Nursing Amount of Assist Needed 1 Person Assist Discharge Recommendations PT Discharge Recommendations SNF Rehab
--- NOTE | 2019-05-19 15:01 | OT.IP.TRT ---
Current Diagnoses Fracture of unspecified part of neck of left femur, initial encounter for closed fracture (05/16/19) Surgery Performed Operation Date: 05/16/19 12:00 Actual Procedures p Complex Posterior Total Hip Arthroplasty(Left) - Linda Baer MD Occupational Therapy Treatment Note M3 OT- IP Subjective and Pain Start: 05/19/19 15:00 Freq: Status: Active Protocol: Document 05/19/19 15:00 CGR (Rec: 05/19/19 15:01 CGR [id number]) OT- Subjective Occupational Therapy Visit Type Type Administrative Note Notes Attempted to see pt for OT eval. Pt states 9/10 pain and too fatigued after sitting up in the chair for an hour. Will hold at this time and continue to follow.
[2019-05-19 16:00] VITALS: BP 126/59; PULSE 75; RESP 20; TEMP 36.7; O2SAT 96
[2019-05-19] MEDS: CEFTRIAXONE 2 GM/50 ML FROZ.PIGGY IV (16:00)
--- NOTE | 2019-05-19 18:43 | PC.NURSE ---
1600- Patient room air saturation is 88%. Patient placed on 2l cannula. Patient encouraged to do Incentive spirometry. Patient is able to achieve 2000ml or more. Will monitor.
[2019-05-19 21:00] VITALS: BP 144/76; PULSE 81; RESP 20; TEMP 36.6; O2SAT 93
[2019-05-20] MEDS: hydrOXYzine pamoate 25 MG CAPSULE PO
[2019-05-20 00:12] VITALS: BP 148/96; PULSE 81; RESP 16; TEMP 36.3; O2SAT 94
[2019-05-20] MEDS: KETOROLAC 30 MG/ML VIAL IV (01:03)
--- NOTE | 2019-05-20 01:28 | PC.NURSE ---
Addendum entered by Nazia Rain R.N. 05/20/19 06:19: 0600 Pt slept the rest of the shift, cooperative, pleasant and w/o event after discussion w/DUCT INSTALLER and receiving Toradol for pain. Addendum entered by Nazia Rain R.N. 05/20/19 01:38: 0040 Checked on pt to reassess pain pt remains angry at RN, states her pain is still 8/10. Hip in alignment, CDI dsg, neurovascular status same. Nicole Dumont DUCT INSTALLER notified for pt behavior and unresolved pain issues needing increased pain med only has Diluadid ordered. One time IV Toradol ordered and given. Nicole Dumont spoke with pt about the importance of activity and to use bedside commode not bedpan even at night. Pt states she understands and apologized. Continue to monitor. Original Note: NOC Shift: At beginning of shift pt needing to urinate, demanding to use bedpan only stating that she should not have to get out of bed in the middle of the night. Discussed w/pt that getting up out of bed to the commode is a MD order for increased activity and encouraged pt to get up no matter the time of day. Pt argumentively complied w/o difficulty however states that she is angry that she is being made to get up out of bed during the night when the evening staff gave her a bedpan to use earlier. After getting back into bed, pt continued to argue that she does not need to use an abductor pillow while sleeping, and hasn't had to with other staff, refuses to have SCD's turned on during the night while she is sleeping, and refuses to perform IS because she wants to sleep but blames the RN for making her angry for getting up to the commode. Pt medicated w/po pain medication for 8/10 pain, and warm blankets placed for comfort. VSS, pt off tele.
[2019-05-20 05:13] LABS: Add Manual Diff / Slide Review NO; Basophils Absolute Auto 100 /uL (0-100); Basophils Percent Auto 0.7 % (0-2); Eosinophils Absolute Auto 300 /uL (0-450); Eosinophils Percent Auto 3.1 % (2-4); Hematocrit 25.2 % (36-46); Hemoglobin 8.5 g/dL (12.0-16.0); Lymphocytes Absolute Auto 2200 /uL (1100-4500); Lymphocytes Percent Auto 20.7 % (25-40); Mean Corpuscular HGB Conc 33.7 % (30-36); Mean Corpuscular Hemoglobin 29.6 PG (26-34); Mean Corpuscular Volume 87.7 fL (80-100); Monocytes Absolute Auto 800 /uL (0-900); Monocytes Percent Auto 7.4 % (3-14); Neutrophils Absolute Auto 7200 /uL (1500-7000); Neutrophils Percent Auto 68.1 % (50-75); Platelet Count 175 X10^3/uL (150-400); Red Blood Cell Count 2.88 X10^6/uL (4.0-5.2); Red Cell Distribution Width 16.3 % (11.6-14.8); White Blood Cell Count 10.6 X10^3/uL (4.5-11.0)
[2019-05-20 05:24] LABS: Blood Urea Nitrogen 8 mg/dL (7-17); Calcium 8.4 mg/dL (8.4-10.2); Carbon Dioxide 22 mmol/L (22-32); Chloride 109 mmol/L (98-107); Estimated Glomerular Filt Rate > 60.0 mL/min (>60); Glucose 83 mg/dL (80-110); HEMOLYSIS < 15 (0-50); Potassium 3.5 mmol/L (3.4-5.1); Sodium 136 mmol/L (137-145)
[2019-05-20] MEDS: LEVOTHYROXINE 75 MCG TABLET PO (06:52)
[2019-05-20 08:04] VITALS: BP 98/59
[2019-05-20] MEDS: FERROUS SULFATE 325 MG TABLET PO (08:04)
[2019-05-20] MEDS: ASCORBIC ACID 500 MG TABLET PO (08:04)
[2019-05-20] MEDS: METOPROLOL ER 25 MG TABLET 12.5 MG PO (08:04)
[2019-05-20] MEDS: ACETAMINOPHEN 325 MG TABLET 975 MG PO ×2 (08:04→14:48)
[2019-05-20] MEDS: DOCUSATE 100 MG CAPSULE PO (08:05)
[2019-05-20] MEDS: ASPIRIN EC 81 MG TABLET PO (08:06)
[2019-05-20] MEDS: POLYETHYLENE GLYCOL 3350 17 GM POWD.PACK PO (08:06)
[2019-05-20] MEDS: OXYCODONE IR 5 MG TABLET PO ×4 (08:06→14:48)
[2019-05-20 08:21] VITALS: BP 98/59; PULSE 84; RESP 16; TEMP 36.6; O2SAT 94
--- NOTE | 2019-05-20 09:20 | CM.DPNOTE ---
Addendum entered by Aure Gomez LPN 05/20/19 12:54: All orders are now in place. Faxed to [facility], placed to snf packet. FCC: 1500 as planned Original Note: DCP: continued: case again recieved and EMR for last few days reviewed. Shahzad Schwab was here this morning and did confirm that pt was stable for d/c to snf setting with continution of IV antibiotics: expected serveral more weeks. Dr. Constantino is consulting as hospitalist: he also says pt is ready today. Have spoken with Mark Us this morning with update. She will put in the authorization for [facility] for today. Have updated Елена: [facility]: she can pick pt up at 1500: w/c van Met with pt and she says she is very agreeable to this plan. RN Chichi Toledo is updated. Will look for orders when shahzad Schwab comes back later today to do them. PASRR: not needed. Is a return to [facility] with no PASRR related changes noted.
--- NOTE | 2019-05-20 09:30 | PT.IPTN ---
Current Diagnoses Fracture of unspecified part of neck of left femur, initial encounter for closed fracture (05/16/19) Surgery Performed Operation Date: 05/16/19 12:00 Actual Procedures p Complex Posterior Total Hip Arthroplasty(Left) - Linda Baer MD Physical Therapy Treatment Note M2 PT-IP Current Condition Start: 05/17/19 11:54 Freq: NEEDED Status: Active Protocol: Document 05/18/19 12:38 AB (Rec: 05/18/19 14:26 AB [id number]) Physical Therapy Current Condition Current Condition Evaluation Date 05/18/19 Treatment Diagnosis s/p L GIA posterior approach; difficulty in walking Onset Date Precautions Posterior Hip Precautions No Hip Flexion > 90 degrees No Hip Internal Rotation No Hip Adduction Weight Bearing Status Weight Bearing Status Weight Bear as Tolerated M3 PT-IP Subjective Start: 05/17/19 11:54 Freq: NEEDED Status: Active Protocol: Document 05/20/19 09:30 RS (Rec: 05/20/19 12:10 RS [id number]) Subjective Physical Therapy Visit Type Type Discharge Summary Visit Start Time 08:30 Visit Stop Time 09:30 Total Visit Minutes 60 Physical Therapy Visit Comments Patient Comments Pt reports not sleeping well but agreeable to work with PT at this time. Therapy Pain Assessment Pain When Pain Assessed At Rest Pain Present Pain Present Pain Reported M4 PT-IP Mobility and Gait Start: 05/17/19 11:54 Freq: NEEDED Status: Active Protocol: Document 05/20/19 09:30 RS (Rec: 05/20/19 12:10 RS [id number]) PT-Bed Mobility Assessment Sit to Supine Sit to Supine Moderate Assistance 1 Person Assistance PT-Transfer Assessment Sit to and From Stand Sit to and from Stand Minimal Assistance 1 Person Assistance Equipment Transfer Assistive Device Bed Rail Gait Belt Front Wheeled Walker Comments Mobility Comments Pt reports she did better last time with the sit to stand, but still only required min A this time. Stair Climbing Assessment Comments Stair Climbing Comments not tested M5 PT-IP Objective Assessments Start: 05/17/19 11:54 Freq: NEEDED Status: Active Protocol: Document 05/18/19 12:38 AB (Rec: 05/18/19 14:26 AB [id number]) Orientation Orientation/Cognition Level of Alertness Alert Orientation Name Safety Awareness Decreased Safety Awareness Memory Description Short Term Impaired Longterm Impaired Comments pt is alert but with confusion : pt though she is a FCC Gross Range of Motion Lower Extremity ROM Assessment Left Impaired Impairments increase LLE guarding Strength Lower Extremity Strength Assessment Bilaterally Impaired Comments Strength Comments RLE: 4-/5 LLE: 3-/5 Coordination Assessment Gross Coordination Gross Coordination WNL Sensation Assessment Sensation Gross Sensation WNL Muscle Tone Muscle Tone WNL Yes M6 PT-IP Treatment Start: 05/17/19 11:54 Freq: NEEDED Status: Active Protocol: Document 05/20/19 09:30 RS (Rec: 05/20/19 12:10 [id number]) Physical Therapy Treatment Other Treatments Other Treatment Performed Seated ther ex: heel raises, marching Supine ther ex: glute sets, quad sets M7 PT-IP Assessment and Plan Start: 05/17/19 11:54 Freq: NEEDED Status: Active Protocol: Document 05/20/19 09:30 RS (Rec: 05/20/19 12:10 [id number]) PT Summary Assessment and Plan Potential Rehabilitation Potential Good Status of Condition at Evaluation Stable Summary Progress Towards Goals Slow Progress due to Pain Assessment Summary Pt much more willing to participate today compared to yesterday, however, pt does still demo some self-limiting behaviors. Despite this, pt able to perform seated and supine BLE exercises that she agrees to do on her own. Pt still significantly below reported functional baseline and does have potential for further functional improvement . Continue to recommend transition to SNF rehab once medically ready. Pt to d/c to [facility] later today, acute PT will sign off. Frequency of Treatment Frequency Of Treatment Discharge Recommendations To Nursing Amount of Assist Needed 1 Person Assist Discharge Recommendations PT Discharge Recommendations SNF Rehab
--- NOTE | 2019-05-20 10:02 | PM.PN.1 ---
Subjective Interval history: Patient is alert, appearing fairly comfortable, and sitting in chair. Denies dyspnea or chest pain but does know her lower legs are swollen. Exam Vital Signs (past 8 hours): - 05/20/19 08:04 05/20/19 08:21 Temperature 97.8 F Pulse Rate 84 Respiratory Rate 16 Blood Pressure 98/59 L 98/59 L Pulse Oximetry 94 Fraction of Inspired Oxygen 30 Oxygen Delivery Method Room Air Oxygen Flow Rate 0 Narrative Exam Narrative: General: Alert, NAD Lungs: Clear to auscultation Heart: Regular rhythm Abdomen: Soft, nontender Extremities: 1+ edema left lower extremity, slight edema right lower extremity Neurological: Appears well oriented, nonfocal Objective Labs Result Diagrams: 05/20/19 04:55 05/20/19 04:55 Labs: Laboratory Results - last 24 hr 05/16/19 05/20/19 05/20/19 10:54 04:55 04:55 WBC 10.6 RBC 2.88 L Hgb 8.5 L Hct 25.2 L MCV 87.7 MCH 29.6 MCHC 33.7 RDW 16.3 H Plt Count 175 Neut % (Auto) 68.1 Lymph % (Auto) 20.7 L Dillon % (Auto) 7.4 Eos % (Auto) 3.1 Baso % (Auto) 0.7 Neut # (Auto) 7200 H Lymph # (Auto) 2200 Dillon # (Auto) 800 Eos # (Auto) 300 Baso # (Auto) 100 Sodium 136 L Potassium 3.5 Chloride 109 H Carbon Dioxide 22 BUN 8 Creatinine 0.40 L Estimated GFR > 60.0 BUN/Creatinine Ratio 20.0 Glucose 83 Calcium 8.4 Crossmatch See Detail Assessment & Plan Assessment & Plan narrative: Patient is medically stable for discharge to longterm facility. As noted below, she does not need to be on metoprolol or daily low-dose aspirin. Also she should be discharged off of her lisinopril HCT and amlodipine with daily monitoring of BP at [facility]. 1. Hypovolemic Shock-resolved. The patient recieved over 10 liters of fluid and 7 units of blood. Her hemodynamic status is stable. She is auto diuresing. 2. S/P THR of infected hip. Management and duration of IV Rocephin per Ortho. 3. Type 2 Myocardial infarction-Suspect demand ischemia from hypovolemic shock. Echo with normal LV EF and no regional wall motion abnormalities. May discontinue metoprolol and daily low-dose aspirin. 4. Hypertension-Blood pressure normal to low-normal currently off her home medication, lisinopril HCT and amlodipine. Recommend discontinuing lisinopril HCT and amlodipine which can be restarted at longterm facility if blood pressures are running elevated. 5. Hypothyroidism-continue routine Lthyroxine 6. Acute blood Loss Anemia- received 7 unit of blood during this admission. Current hematocrit 25 is stable. 7. Resume Vit C and Iron for anemia 8. Hyperglycemia, no evidence of diabetes. Resolved and no treatment necessary. Patient is making excellent recovery. Continue PT and OT, IV antibiotics anticipate discharge to the longterm unit sometime this week.
--- NOTE | 2019-05-20 10:06 | P.PN_ITS ---
Subjective Interval history: Patient is alert, appearing fairly comfortable, and sitting in chair. Denies dyspnea or chest pain but does know her lower legs are swollen. Exam Vital Signs (past 8 hours): - 05/20/19 08:04 05/20/19 08:21 Temperature 97.8 F Pulse Rate 84 Respiratory Rate 16 Blood Pressure 98/59 L 98/59 L Pulse Oximetry 94 Fraction of Inspired Oxygen 30 Oxygen Delivery Method Room Air Oxygen Flow Rate 0 Narrative Exam Narrative: General: Alert, NAD Lungs: Clear to auscultation Heart: Regular rhythm Abdomen: Soft, nontender Extremities: 1+ edema left lower extremity, slight edema right lower extremity Neurological: Appears well oriented, nonfocal Objective Labs Result Diagrams: 05/20/19 04:55 05/20/19 04:55 Labs: Laboratory Results - last 24 hr 05/16/19 05/20/19 05/20/19 10:54 04:55 04:55 WBC 10.6 RBC 2.88 L Hgb 8.5 L Hct 25.2 L MCV 87.7 MCH 29.6 MCHC 33.7 RDW 16.3 H Plt Count 175 Neut % (Auto) 68.1 Lymph % (Auto) 20.7 L [place] % (Auto) 7.4 Eos % (Auto) 3.1 Baso % (Auto) 0.7 Neut # (Auto) 7200 H Lymph # (Auto) 2200 [place] # (Auto) 800 Eos # (Auto) 300 Baso # (Auto) 100 Sodium 136 L Potassium 3.5 Chloride 109 H Carbon Dioxide 22 BUN 8 Creatinine 0.40 L Estimated GFR > 60.0 BUN/Creatinine Ratio 20.0 Glucose 83 Calcium 8.4 Crossmatch See Detail Assessment & Plan Assessment & Plan narrative: Patient is medically stable for discharge to long-term facility. As noted below, she does not need to be on metoprolol or daily low-dose aspirin. Also she should be discharged off of her lisinopril HCT and amlodipine with daily monitoring of BP at [facility]. 1. Hypovolemic Shock-resolved. The patient recieved over 10 liters of fluid and 7 units of blood. Her hemodynamic status is stable. She is auto diuresing. 2. S/P THR of infected hip. Management and duration of IV Rocephin per Ortho. 3. Type 2 Myocardial infarction-Suspect demand ischemia from hypovolemic shock. Echo with normal LV EF and no regional wall motion abnormalities. May discontinue metoprolol and daily low-dose aspirin. 4. Hypertension-Blood pressure normal to low-normal currently off her home medication, lisinopril HCT and amlodipine. Recommend discontinuing lisinopril HCT and amlodipine which can be restarted at long-term facility if blood pressures are running elevated. 5. Hypothyroidism-continue routine Lthyroxine 6. Acute blood Loss Anemia- received 7 unit of blood during this admission. Current hematocrit 25 is stable. 7. Resume Vit C and Iron for anemia 8. Hyperglycemia, no evidence of diabetes. Resolved and no treatment necessary. Patient is making excellent recovery. Continue PT and OT, IV antibiotics anticipate discharge to the long-term unit sometime this week.
--- NOTE | 2019-05-20 12:31 | PC.NURSE ---
Addendum entered by Chichi Thorpe R.N. 05/20/19 14:52: pt discharged at this at this time after medicating with tylenol and oxycodone Addendum entered by Chichi Thorpe R.N. 05/20/19 14:00: pt declined to have this RN redress picc line ( due tomorrow ) AND WILL RECEIVE PAIN RX PRIOR TO TRANSFER- REPORT CALLED TO CAESAR AT [facility] IN ANTICIPATION OF TRANSFER AT 1500 Original Note: dc orders received and pt delighted to be returning to [facility] for further rehab- she has been using bsc to void ( both bowel and bladder) tolerating diet well without nausea and increased mobility- oxycodone prn as well as scheduled acetaminophen for pain- harmony drain intact preparing for discharge at this time
--- NOTE | 2019-05-20 14:10 | PM.DS.1 ---
History of Present Illness Date Patient Seen: 05/20/19 Time Patient Seen: 14:11 Chief complaint: Total Hip Arthroplasty 26476 Narrative: This is a 73-year-old female who fell and sustained a severely comminuted left proximal femur fracture. She underwent open reduction internal fixation. She had soft bone and had failure of fixation. At the time of attempted conversion to hip arthroplasty she was found to have evidence of a strep infection. All of her implants were removed and she has been on IV antibiotics for 6 weeks for a strep canis infection. After 6 weeks of antibiotics she is now brought to the operating room for repeat I and D and placement of an antibiotic spacer or possible conversion to total hip arthroplasty. Discharge Providers Date of admission: 05/16/19 10:01 Discharge Date: 05/20/19 Primary care physician: Caprice Burrows PA-C Consults: 05/16/19 06:00 Consult to Anesthesiology Routine Comment: Consulting Provider: Anesthesiologist Reason for consultation: Regional block for post operative pain control 05/16/19 21:06 Consult to Discharge Planning Routine Comment: Consult to Physical Therapy Evaluate & Treat Comment: Physician Instructions: post op GIA protocol Consult to Respiratory Therapy Evaluate & Treat Comment: Physician Instructions: Evaluate and treat 05/17/19 14:09 Consult to Occupational Therapy Evaluate & Treat Comment: Physician Instructions: Evaluate and treat Consult to Physical Therapy Evaluate & Treat Comment: Physician Instructions: Evaluate and Treat 05/17/19 18:17 Consult to Dietitian, Adult Routine Comment: Reason For Exam: Assessed at high risk. Discharge provider: Mady Henderson PA-C Summary Discharge Diagnosis: s/p conversion of prior hip surgery to GIA, irrigation and debridement left hip Hypovolemic Shock Hypothyroidism Acute blood Loss Anemia Hospital Course: Avery s/p conversion of prior hip surgery to GIA, irrigation and debridement left hip with Dr. Baer. Patient received 7 unit of blood during this admission. Current H+H 8.5/25.2 and stable. Will continue Iron and Vitamin C. Patient was ambulating with PT throughout her stay. She was eating and voiding without difficutly or assistance. She was ambulating with PT throughout her stay. Status at Discharge Functional status at discharge: uses cane/walker Exam Vital Signs (past 8 hours): - 05/20/19 08:04 05/20/19 08:21 Temperature 97.8 F Pulse Rate 84 Respiratory Rate 16 Blood Pressure 98/59 L 98/59 L Pulse Oximetry 94 Fraction of Inspired Oxygen 30 Oxygen Delivery Method Room Air Oxygen Flow Rate 0 Narrative Exam Narrative: Patient sitting in bedside chair in NAD. She's alert and oriented X3. Dressing CDI. Calves are soft, compressible, and nontender bilaterally. Shes able to actively dorsiflex and plantarflex. Pain well controlled today. Objective Labs Result Diagrams: 05/20/19 04:55 05/20/19 04:55 Labs: Laboratory Results - last 24 hr 05/16/19 05/20/19 05/20/19 10:54 04:55 04:55 WBC 10.6 RBC 2.88 L Hgb 8.5 L Hct 25.2 L MCV 87.7 MCH 29.6 MCHC 33.7 RDW 16.3 H Plt Count 175 Neut % (Auto) 68.1 Lymph % (Auto) 20.7 L [place] % (Auto) 7.4 Eos % (Auto) 3.1 Baso % (Auto) 0.7 Neut # (Auto) 7200 H Lymph # (Auto) 2200 [place] # (Auto) 800 Eos # (Auto) 300 Baso # (Auto) 100 Sodium 136 L Potassium 3.5 Chloride 109 H Carbon Dioxide 22 BUN 8 Creatinine 0.40 L Estimated GFR > 60.0 BUN/Creatinine Ratio 20.0 Glucose 83 Calcium 8.4 Crossmatch See Detail Discharge Plan Discharge Plan Patient Disposition: SNF Transfer to: [facility] Under care of provider: Facility Transportation: Facility vehicle Consult as needed: Dental, Hearing, Mental health, Podiatry and Vision I certify the postop hospital fdc care is medically necessary on a continuing basis for any conditions for which he/ she received care during this hospitalization.: Yes The receiving facility has agreed to accept transfer and provide medical treatment.: Yes Discharge Med Rec/Prescriptions Prescriptions: New acetaminophen 325 mg Tablet 975 mg PO TID Qty: 60 RF: 0 docusate sodium [DOK] 100 mg Capsule 100 mg PO BID Qty: 60 RF: 0 oxycodone 5 mg capsule 5 mg PO Q4-6H PRN (Reason: pain) Qty: 50 RF: 0 aspirin 81 mg tablet,delayed release (DR/EC) 81 mg PO DAILY Qty: 20 RF: 0 Continued levothyroxine [Synthroid] 75 mcg tablet 75 mcg PO DAILY Qty: 90 RF: 3 ceftriaxone 2 gram recon soln 2 gram IV Q24H Qty: 42 RF: 0 ascorbic acid (vitamin C) [Vitamin C] 500 mg Tablet 500 mg PO BID Qty: 30 RF: 0 calcium carbonate 200 mg calcium (500 mg) Tablet,Chewable 1,000 mg PO Q4HR PRN (Reason: Dyspepsia) Qty: 30 RF: 0 docusate sodium [DOK] 100 mg Capsule 100 mg PO BID Qty: 30 RF: 0 cholecalciferol (vitamin D3) [Vitamin D3] 2,000 unit capsule 2,000 unit PO DAILY Qty: 30 RF: 0 ferrous sulfate [iron] 325 mg (65 mg iron) tablet 325 mg PO BID Qty: 60 RF: 0 Discontinued aspirin 325 mg tablet 650 mg PO BEDTIME PRN (Reason: Pain, Mild) RF: 0 amlodipine [Norvasc] 5 mg tablet 5 mg PO DAILY Qty: 90 RF: 0 hydrocodone-acetaminophen 5-325 mg tablet 1 - 2 tab PO Q4HR PRN (Reason: Pain) RF: 0 lisinopril-hydrochlorothiazide 20-25 mg tablet 1 tab PO DAILY RF: 0 Follow up/Referrals: Caprice Burrows PA-C [Primary Care Provider] - Linda Baer MD [Physician] - 2 Weeks Discharge Health Status Brief summary of current health status: Status post complex left hip conversion of previous hip surgery to total hip arthroplasty and I and D with a known history of a strep infection in her left hip. The plan is to keep her on IV ceftriaxone for at least 2 weeks and possibly 6 weeks postoperatively. Recommend discontinuing lisinopril HCT and amlodipine which can be restarted at fdc facility if blood pressures are running elevated. Multidrug resistant organism: No MDRO Provider Discharge Instructions Diet: Diet as Tolerated Liquid consistency: Normal/Thin Food texture: Regular Activity: mobilize out of bed to chair she should keep her hip in a relatively abducted position needs to be careful to avoid falls but it is okay for her to be full weight-bearing on the left lower extremity. We need to maintain posterior hip precautions for 6 weeks postoperatively. Skin/Wound/Dressing Care Report to your healthcare provider any signs of infection, such as:: chills, fever and increased pain Special Rehabilitation Services Reason for rehabilitation: Post-operative therapy Rehab type: Physical therapy and Occupational therapy Discharge Data Primary Care Provider: Caprice Burrows Attending Provider: Linda Baer Admit Date/Time: 05/16/19 10:01
== END 2019-05-20 14:59 | DRG 469 ==
LOC: AC 10:16 → ICU 05-17 12:08
PROVIDERS: Anesthesiology; Internal Medicine; Nurse Practitioner Adult Health; Physician Assistant Surgical; Admitting Provider Orthopaedic Surgery; Family Provider Physician Assistant; PCP Physician Assistant; Visit Provider Orthopaedic Surgery
PROC: 0SRB0JZ Replacement of Left Hip Joint with Synthetic Substitute, Open Approach (ICD-10-PCS; CPT 27130; principal; 2019-05-16 12:00)
DX: T84.621A Infection and inflammatory reaction due to internal fixation device of left femur, initial encounter (principal); J96.00 Acute respiratory failure, unspecified whether with hypoxia or hypercapnia; J69.0 Pneumonitis due to inhalation of food and vomit; T81.19XA Other postprocedural shock, initial encounter; I21.A1 Myocardial infarction type 2; D62 Acute posthemorrhagic anemia; E87.2 Acidosis; E87.1 Hypo-osmolality and hyponatremia; S72.92XP Unspecified fracture of left femur, subsequent encounter for closed fracture with malunion; M83.9 Adult osteomalacia, unspecified; M21.752 Unequal limb length (acquired), left femur; E83.42 Hypomagnesemia; E83.51 Hypocalcemia; R73.9 Hyperglycemia, unspecified; I10 Essential (primary) hypertension; M81.0 Age-related osteoporosis without current pathological fracture; E03.9 Hypothyroidism, unspecified; Z87.891 Personal history of nicotine dependence
CPT/HCPCS: 36415; 36430; 36592; 36600; 71045; 73502; 73503; 76000; 80048; 80053; 82805; 82962; 83605; 83735; 83880; 84145; 84484; 85014; 85018; 85025; 85027; 86850; 86900; 86901; 87040; 87070; 87075; 87205; 87797; 87801; 93005; 93306; 94002; 94003; 94762; 94770; 94799; 97110; 97162; 97530; C1776; P9016; C9290; J0610; J0690; J0696; J1100; J1170; J1885; J2250; J2405; J2543; J2704; J3010; J3480

== ENCOUNTER 2019-06-04 09:29 | Inpatient (IN) | payer OTHER, SELFPAY ==
[2019-05-16 19:40] VITALS: BMI 27.8
[2019-05-17 13:45] VITALS: PULSE 119; RESP 10; O2SAT 99
[2019-06-04] VITALS (20 sets, daily range): BP systolic 105–179; BP diastolic 52–87; PULSE 74–94; RESP 12–22; TEMP 36.1–37.2; O2SAT 95–100; BMI 31.1
--- NOTE | 2019-06-04 | DI.RAD.S_ITS ---
PROCEDURE: XR HIP W PEL IF DONE LT 2V INDICATIONS: RELOCATION LEFT HIP TECHNIQUE: Multiple fluoroscopic views of the hip were acquired. COMPARISON: None. FINDINGS: Bones: Multiple fluoroscopic views demonstrate reduction of a dislocated left hip arthroplasty. IMPRESSION: Fluoroscopic views of left hip reduction. Dictated by: Isis Partida M.D. on 06/04/2019 at 20:18 Approved by: Isis Partida M.D. on 06/04/2019 at 20:19
--- NOTE | 2019-06-04 09:37 | DI.RAD.S_ITS ---
PROCEDURE: XR HIP W PEL IF DONE LT 2V INDICATIONS: disloction TECHNIQUE: AP pelvis with lateral view(s) of the left hip(s). COMPARISON: [facility], , XR HIP W PEL IF DONE LT 2V, 05/16/2019, 19:10. FINDINGS: Bones: Lateral curvature of the lower lumbar spine and diffuse spondylosis. Left hip arthroplasty is dislocated with superolateral displacement of the femoral head component. Hardware appears grossly intact where visualized. No acute fracture seen. Soft tissues: The visualized bowel gas pattern is normal. No suspicious soft tissue calcifications. IMPRESSION: Interval superolateral dislocation of left total hip arthroplasty since 05/16/19. Dictated by: Tereso Foote M.D. on 06/04/2019 at 10:12 Approved by: Tereso Foote M.D. on 06/04/2019 at 10:14
--- NOTE | 2019-06-04 09:39 | ED.LOWEXIN ---
HPI - Extremity Injury (Lower) General Chief Complaint: Extremity Injury, Lower Stated Complaint: Dislocated hip Time Seen by Provider: 06/04/19 09:37 Source: EMS Mode of arrival: EMS Limitations: no limitations History of Present Illness HPI Narrative: Patient is 73-year-old female who presents with left hip pain ongoing for 4 days. She is status post surgery on 05/16/2019 for a left hip fracture is and left hip infection. Postoperatively it appears as though she went to hemorrhagic shock requiring 10 L of IV fluids and 7 units of blood. She started having pain 3 days ago apparently they got an x-ray at outpatient facility which showed dislocation possibly. She is in severe pain she received fentanyl and ketamine prior to arrival. She states that 4 days ago she was getting around ambulating and weight-bearing. She had to use the restroom she was able to get herself to the restroom however the commode back owes over the toilet was in the shower. She was wrestling with the commode to get it over the toilet. She felt something happened. She has been in pain ever since unable to weightbear. Related Data Home Medications Medication Instructions Recorded Confirmed Lactobacillus acidophilus 1 cap PO DAILY 06/04/19 06/04/19 [Acidophilus] bisacodyl 5 - 10 mg PO PRN PRN 06/04/19 06/04/19 bisacodyl 10 mg DC PRN PRN 06/04/19 06/04/19 calcium carbonate 1,000 mg PO Q4H PRN 06/04/19 06/04/19 cholecalciferol (vitamin D3) 2,000 unit PO DAILY 06/04/19 06/04/19 [Vitamin D3] lisinopril-hydrochlorothiazide 1 tab PO DAILY 06/04/19 06/04/19 magnesium hydroxide [Milk of 30 ml PO PRN PRN 06/04/19 06/04/19 Magnesia] oxycodone 5 mg PO Q4H PRN 06/04/19 06/04/19 oxycodone 10 mg PO Q4H PRN 06/04/19 06/04/19 sodium phosphates [Fleet Enema] 1 ea DC PRN PRN 06/04/19 06/04/19 Previous Rx's Medication Instructions Recorded levothyroxine 75 mcg tablet 75 mcg PO DAILY #90 tab 02/13/19 ascorbic acid (vitamin C) [Vitamin 500 mg PO BID #30 tab 03/11/19 C] docusate sodium [DOK] 100 mg PO BID #30 cap 03/11/19 ferrous sulfate [iron] 325 mg PO BID #60 tab 03/11/19 ceftriaxone 2 gram IV Q24H #42 each 04/05/19 acetaminophen 975 mg PO TID #60 tab 05/20/19 aspirin 81 mg PO DAILY #20 tab 05/20/19 Allergies Allergy/AdvReac Type Severity Reaction Status Date / Time [id number] Reductase AdvReac Intermediate myalgias, Verified 04/02/19 11:49 Inhibitor tinnitus [[id number] REDUCTASE INHIBITOR] Review of Systems Review of Systems ROS Unobtainable: All systems reviewed & are unremarkable except as noted in HPI and below Constitutional Denies chills, Denies fever(s), Denies lethargy and Denies weakness Cardiovascular Denies chest pain, Denies irregular heart rhythm, Denies lightheadedness, Denies palpitations, Denies dyspnea, Denies dyspnea on exertion and Denies orthopnea Respiratory Denies cough, Denies dyspnea, Denies dyspnea on exertion and Denies wheezing Gastrointestinal Gastrointestinal: Denies abdominal pain, Denies change in bowel habits, Denies diarrhea, Denies nausea and Denies vomiting Integumentary/Breasts Denies pruritus, Denies erythema, Denies rash and Denies wounds Neurologic Denies weakness Endocrine Denies palpitations Allergic/Immunologic Denies wheezing [facility] Medical History History of cervical cancer (Acute) RLS (restless legs syndrome) (Acute) Hypertension (Chronic) Hypothyroid (Chronic) Thyroid cancer (Chronic) Surgical History Status post hip surgery (Acute 04/02/19) Status post hip surgery (Acute ~02/2019) History of myomectomy (Chronic) History of thyroidectomy (Inactive) Family History Father Alcoholism Smoker Heart disease Stroke Mother No problems noted. Sister No problems noted. Social History (Updated 04/03/19 @ 03:43 by ANDRES Hopper) household members: none lives independently: Yes Smoking Status: Former smoker Tobacco: How many years used: 42 second hand exposure: No alcohol intake: current substance use type: marijuana additional social history: Reports smoking cigarettes from age 14 to age 56, 0.5 to 1 pack per day. Reports to drinking 2 glasses of wine daily and 1-2 shots of Vodka prior to bedtime. Notes this to be a lifelong practice. Family History Father Alcoholism Smoker Heart disease Stroke Mother No problems noted. Sister No problems noted. Social History household members: none lives independently: Yes Smoking Status: Former smoker Tobacco: How many years used: 42 second hand exposure: No alcohol intake: current substance use type: marijuana additional social history: Reports smoking cigarettes from age 14 to age 56, 0.5 to 1 pack per day. Reports to drinking 2 glasses of wine daily and 1-2 shots of Vodka prior to bedtime. Notes this to be a lifelong practice. Exam Initial Vital Signs Initial Vital Signs: Vital Signs Temperature 97.8 F 06/04/19 09:59 Pulse Rate 87 06/04/19 09:59 Respiratory Rate 18 06/04/19 09:59 Blood Pressure 179/64 H 06/04/19 09:59 Pulse Oximetry 99 06/04/19 09:59 GENERAL: HEENT: Head atraumatic,EOMI, pupils reactive, CARDIOVASCULAR: Regular rate and rhythm without murmurs, rubs or gallops. RESPIRATORY: Breath sounds equal bilaterally, no wheezes rales or rhonchi. ABDOMEN: Soft, nontender. Normoactive bowel sounds all 4 quadrants. No guarding or rebound. EXTREMITIES: Normal range of motion, no clubbing or edema. Neurovascularly intact left leg shortened, pedal pulse intact NEUROLOGICAL: Alert and oriented x4.Normal gait and speech. Cranial nerves II through XII grossly intact. [Good [id number]-ie-assl, good [id number], strength equal bilaterally, no dysarthria or aphasia, sensation in tact to soft touch bilaterally, no visual changes, no facial droop] SKIN: Warm, dry, no laceration, no petechiae, no rashes or lesions. Procedures Orthopedic Joint Reduction Joint #1: Time Out Performed: Yes Side: left Joint Reduction Location: hip Analgesia: procedural sedation Shoulder Technique Used (if applicable): traction/counter-traction and external rotation Technique used: direct manipulation Post-reduction neuro exam: no change Post-reduction vascular: no change Post Reduction X-Ray Obtained: Yes Post Reduction X-Ray Results: not reduced Patient Tolerated Procedure: Well Procedural Sedation Patient Age: Patient is 5yrs or older Consent signed: Yes Time out performed: Yes Indication: fracture/dislocation reduction ASA Class: I Preparation: cardiac nurse practitioner applied, pulse oximeter, capnometry used and supplemental O2 applied IV Propofol dose (mg): 85 Intraservice time/total sedation time (min): 15 ED Sedation Level: Moderate (Concious) Patient Tolerated Procedure: Well Complications: none Course Orders Ordered: ED Orders 06/04/19 09:37 XR hip w pel if done LT 2V Stat 06/04/19 11:36 XR pelvis 1-2V Stat 06/04/19 15:32 Consult to Discharge Planning Routine Consult to Physical Therapy Evaluate & Treat Consult to Respiratory Therapy Evaluate & Treat Acetaminophen (Tylenol) 975 mg PO TID [facility] Aspirin (Aspirin Ec) 325 mg PO DAILY [facility] Docusate Sodium (Colace) 100 mg PO BID [facility] Hydromorphone HCl (Dilaudid) 0.5 mg IV Q1HR PRN PRN Reason: Pain, Severe (7-10) Sodium Chloride (Normal Saline 0.9%) 1,000 mls @ 100 mls/hr IV CONT NI Last Admin: 06/04/19 10:21 Dose: 100 mls/hr Ceftriaxone Sodium/Dextrose (Rocephin) 2 gm in 50 mls @ 100 mls/hr IV Q24H [facility] Lactated Ringer's (Lactated Ringers) 1,000 mls @ 125 mls/hr IV CONT [facility] Naloxone HCl (Narcan) 0.2 mg IV Q2MIN PRN PRN Reason: Opiate Reversal Ondansetron HCl (Zofran Odt) 4 mg PO Q4HR PRN PRN Reason: Nausea Ondansetron HCl (Zofran) 4 mg IV Q4HR PRN PRN Reason: Nausea And Vomiting Oxycodone HCl (Percolone) 5 mg PO Q3HR PRN PRN Reason: Pain, Moderate (4-6) Discontinued Medications Hydromorphone HCl (Dilaudid) 1 mg IV NOW ONE Stop: 06/04/19 09:38 Last Admin: 06/04/19 10:21 Dose: 1 mg Hydromorphone HCl (Dilaudid) 1 mg IV NOW ONE Stop: 06/04/19 10:54 Last Admin: 06/04/19 13:11 Dose: Not Given Propofol (Diprivan) 85 mg 1 mg/kg (85 mg) IV NOW ONE Stop: 06/04/19 10:21 Last Admin: 06/04/19 11:30 Dose: 85 mg Vital Signs - 8 hr 06/04/19 09:59 06/04/19 10:30 06/04/19 11:12 Temperature 97.8 F Pulse Rate 87 80 82 Respiratory Rate 18 19 18 Blood Pressure 179/64 H Blood Pressure [Right Arm] 151/57 H 147/65 H Pulse Oximetry 99 98 99 06/04/19 11:30 06/04/19 11:32 06/04/19 11:35 Temperature Pulse Rate 81 75 83 Respiratory Rate 16 16 18 Blood Pressure Blood Pressure [Right Arm] 133/81 174/87 H 130/61 Pulse Oximetry 99 99 99 06/04/19 11:40 06/04/19 12:31 06/04/19 13:07 Temperature Pulse Rate 81 82 84 Respiratory Rate 22 18 Blood Pressure Blood Pressure [Right Arm] 105/62 127/52 L 124/52 L Pulse Oximetry 97 100 100 06/04/19 13:35 Temperature 98.3 F Pulse Rate 78 Respiratory Rate 22 Blood Pressure 159/70 H Blood Pressure [Right Arm] Pulse Oximetry 100 MDM - Extremity Injury (Lower) Lab Data Point of Care Testing Test Results Not applicable Imaging Data hip left: Radiologist's impression: PROCEDURE: XR HIP W PEL IF DONE LT 2V INDICATIONS: disloction TECHNIQUE: AP pelvis with lateral view(s) of the left hip(s). COMPARISON: [facility], [place], XR HIP W PEL IF DONE LT 2V, 05/16/2019, 19:10. FINDINGS: Bones: Lateral curvature of the lower lumbar spine and diffuse spondylosis. Left hip arthroplasty is dislocated with superolateral displacement of the femoral head component. Hardware appears grossly intact where visualized. No acute fracture seen. Soft tissues: The visualized bowel gas pattern is normal. No suspicious soft tissue calcifications. IMPRESSION: Interval superolateral dislocation of left total hip arthroplasty since 05/16/19. Dictated by: Tereso Foote M.D. on 06/04/2019 at 10:1 hip #2: Radiologist's impression: PROCEDURE: XR PELVIS 1-2V INDICATIONS: status of hip, TECHNIQUE: Single view(s) of the pelvis acquired. COMPARISON: [facility], [place], XR HIP W PEL IF DONE LT 2V, 06/04/2019, 9:39. FINDINGS: Bones: Persistent left hip arthroplasty dislocation Soft tissues: Visualized bowel gas pattern is normal. No suspicious soft tissue calcifications. IMPRESSION: Persistent left total hip arthroplasty dislocation. Dictated by: Tereso Foote M.D. on 06/04/2019 at 12:00 MDM Narrative Medical decision making narrative: I spoke with Dr. Begum, orthopedics due to recent surgery and replacement. At this time she states okay to attempt reduction. Reduction very unsuccessful. Dr. Begum updated on outpatient. Hip is been out for 4 days would likely need to go to the OR. Dr. Cook request boot and traction to help. Traction will be set up on the floor. She will be kept NPO and go to OR later Discharge Plan Departure Patient Disposition: Admitted as Observation Clinical Impression: Dislocation of left hip Qualifiers: Encounter type: initial encounter Qualified Code(s): S73.005A - Unspecified dislocation of left hip, initial encounter Discharge Date/Time: 06/04/19 13:33 Interventions: ED Discharge Assessment Last Done: 06/04/19 13:18 Admit Date/Time: 06/04/19 11:54 Admit Provider: Michelle Berg
--- NOTE | 2019-06-04 09:42 | ED_ITS ---
HPI - Extremity Injury (Lower) General Chief Complaint: Extremity Injury, Lower Stated Complaint: Dislocated hip Time Seen by Provider: 06/04/19 09:37 Source: EMS Mode of arrival: EMS Limitations: no limitations History of Present Illness HPI Narrative: Patient is 73-year-old female who presents with left hip pain ongoing for 4 days. She is status post surgery on 05/16/2019 for a left hip fracture is and left hip infection. Postoperatively it appears as though she went to hemorrhagic shock requiring 10 L of IV fluids and 7 units of blood. She started having pain 3 days ago apparently they got an x-ray at outpatient facility which showed dislocation possibly. She is in severe pain she received fentanyl and ketamine prior to arrival. She states that 4 days ago she was getting around ambulating and weight-bearing. She had to use the restroom she was able to get herself to the restroom however the commode back owes over the toilet was in the shower. She was wrestling with the commode to get it over the toilet. She felt something happened. She has been in pain ever since unable to weightbear. Related Data Home Medications Medication Instructions Recorded Confirmed Lactobacillus acidophilus 1 cap PO DAILY 06/04/19 06/04/19 [Acidophilus] bisacodyl 5 - 10 mg PO PRN PRN 06/04/19 06/04/19 bisacodyl 10 mg SD PRN PRN 06/04/19 06/04/19 calcium carbonate 1,000 mg PO Q4H PRN 06/04/19 06/04/19 cholecalciferol (vitamin D3) 2,000 unit PO DAILY 06/04/19 06/04/19 [Vitamin D3] lisinopril-hydrochlorothiazide 1 tab PO DAILY 06/04/19 06/04/19 magnesium hydroxide [Milk of 30 ml PO PRN PRN 06/04/19 06/04/19 Magnesia] oxycodone 5 mg PO Q4H PRN 06/04/19 06/04/19 oxycodone 10 mg PO Q4H PRN 06/04/19 06/04/19 sodium phosphates [Fleet Enema] 1 ea SD PRN PRN 06/04/19 06/04/19 Previous Rx's Medication Instructions Recorded levothyroxine 75 mcg tablet 75 mcg PO DAILY #90 tab 02/13/19 ascorbic acid (vitamin C) [Vitamin 500 mg PO BID #30 tab 03/11/19 C] docusate sodium [DOK] 100 mg PO BID #30 cap 03/11/19 ferrous sulfate [iron] 325 mg PO BID #60 tab 03/11/19 ceftriaxone 2 gram IV Q24H #42 each 04/05/19 acetaminophen 975 mg PO TID #60 tab 05/20/19 aspirin 81 mg PO DAILY #20 tab 05/20/19 Allergies Allergy/AdvReac Type Severity Reaction Status Date / Time Srelcnh-Ixm-Wbr Reductase AdvReac Intermediate myalgias, Verified 04/02/19 11:49 Inhibitor tinnitus [[id number] REDUCTASE INHIBITOR] Review of Systems Review of Systems ROS Unobtainable: All systems reviewed & are unremarkable except as noted in HPI and below Constitutional Denies chills, Denies fever(s), Denies lethargy and Denies weakness Cardiovascular Denies chest pain, Denies irregular heart rhythm, Denies lightheadedness, Denies palpitations, Denies dyspnea, Denies dyspnea on exertion and Denies orthopnea Respiratory Denies cough, Denies dyspnea, Denies dyspnea on exertion and Denies wheezing Gastrointestinal Gastrointestinal: Denies abdominal pain, Denies change in bowel habits, Denies diarrhea, Denies nausea and Denies vomiting Integumentary/Breasts Denies pruritus, Denies erythema, Denies rash and Denies wounds Neurologic Denies weakness Endocrine Denies palpitations Allergic/Immunologic Denies wheezing [facility] Medical History History of cervical cancer (Acute) RLS (restless legs syndrome) (Acute) Hypertension (Chronic) Hypothyroid (Chronic) Thyroid cancer (Chronic) Surgical History Status post hip surgery (Acute 04/02/19) Status post hip surgery (Acute ~02/2019) History of myomectomy (Chronic) History of thyroidectomy (Inactive) Family History Father Alcoholism Smoker Heart disease Stroke Mother No problems noted. Sister No problems noted. Social History (Updated 04/03/19 @ 03:43 by ANDRES Hopper) household members: none lives independently: Yes Smoking Status: Former smoker Tobacco: How many years used: 42 second hand exposure: No alcohol intake: current substance use type: marijuana additional social history: Reports smoking cigarettes from age 14 to age 56, 0.5 to 1 pack per day. Reports to drinking 2 glasses of wine daily and 1-2 shots of Vodka prior to bedtime. Notes this to be a lifelong practice. Family History Father Alcoholism Smoker Heart disease Stroke Mother No problems noted. Sister No problems noted. Social History household members: none lives independently: Yes Smoking Status: Former smoker Tobacco: How many years used: 42 second hand exposure: No alcohol intake: current substance use type: marijuana additional social history: Reports smoking cigarettes from age 14 to age 56, 0.5 to 1 pack per day. Reports to drinking 2 glasses of wine daily and 1-2 shots of Vodka prior to bedtime. Notes this to be a lifelong practice. Exam Initial Vital Signs Initial Vital Signs: Vital Signs Temperature 97.8 F 06/04/19 09:59 Pulse Rate 87 06/04/19 09:59 Respiratory Rate 18 06/04/19 09:59 Blood Pressure 179/64 H 06/04/19 09:59 Pulse Oximetry 99 06/04/19 09:59 GENERAL: HEENT: Head atraumatic,EOMI, pupils reactive, CARDIOVASCULAR: Regular rate and rhythm without murmurs, rubs or gallops. RESPIRATORY: Breath sounds equal bilaterally, no wheezes rales or rhonchi. ABDOMEN: Soft, nontender. Normoactive bowel sounds all 4 quadrants. No guarding or rebound. EXTREMITIES: Normal range of motion, no clubbing or edema. Neurovascularly intact left leg shortened, pedal pulse intact NEUROLOGICAL: Alert and oriented x4.Normal gait and speech. Cranial nerves II through XII grossly intact. [Good [id number]-gu-jpmr, good xsar-nl-vdlr, strength equal bilaterally, no dysarthria or aphasia, sensation in tact to soft touch bilaterally, no visual changes, no facial droop] SKIN: Warm, dry, no laceration, no petechiae, no rashes or lesions. Procedures Orthopedic Joint Reduction Joint #1: Time Out Performed: Yes Side: left Joint Reduction Location: hip Analgesia: procedural sedation Shoulder Technique Used (if applicable): traction/counter-traction and external rotation Technique used: direct manipulation Post-reduction neuro exam: no change Post-reduction vascular: no change Post Reduction X-Ray Obtained: Yes Post Reduction X-Ray Results: not reduced Patient Tolerated Procedure: Well Procedural Sedation Patient Age: Patient is 5yrs or older Consent signed: Yes Time out performed: Yes Indication: fracture/dislocation reduction ASA Class: I Preparation: campus monitor applied, pulse oximeter, capnometry used and supplemental O2 applied IV Propofol dose (mg): 85 Intraservice time/total sedation time (min): 15 ED Sedation Level: Moderate (Concious) Patient Tolerated Procedure: Well Complications: none Course Orders Ordered: ED Orders 06/04/19 09:37 XR hip w pel if done LT 2V Stat 06/04/19 11:36 XR pelvis 1-2V Stat 06/04/19 15:32 Consult to Discharge Planning Routine Consult to Physical Therapy Evaluate & Treat Consult to Respiratory Therapy Evaluate & Treat Acetaminophen (Tylenol) 975 mg PO TID [facility] Aspirin (Aspirin Ec) 325 mg PO DAILY [facility] Docusate Sodium (Colace) 100 mg PO BID [facility] Hydromorphone HCl (Dilaudid) 0.5 mg IV Q1HR PRN PRN Reason: Pain, Severe (7-10) Sodium Chloride (Normal Saline 0.9%) 1,000 mls @ 100 mls/hr IV CONT NI Last Admin: 06/04/19 10:21 Dose: 100 mls/hr Ceftriaxone Sodium/Dextrose (Rocephin) 2 gm in 50 mls @ 100 mls/hr IV Q24H [facility] Lactated Ringer's (Lactated Ringers) 1,000 mls @ 125 mls/hr IV CONT [facility] Naloxone HCl (Narcan) 0.2 mg IV Q2MIN PRN PRN Reason: Opiate Reversal Ondansetron HCl (Zofran Odt) 4 mg PO Q4HR PRN PRN Reason: Nausea Ondansetron HCl (Zofran) 4 mg IV Q4HR PRN PRN Reason: Nausea And Vomiting Oxycodone HCl (Percolone) 5 mg PO Q3HR PRN PRN Reason: Pain, Moderate (4-6) Discontinued Medications Hydromorphone HCl (Dilaudid) 1 mg IV NOW ONE Stop: 06/04/19 09:38 Last Admin: 06/04/19 10:21 Dose: 1 mg Hydromorphone HCl (Dilaudid) 1 mg IV NOW ONE Stop: 06/04/19 10:54 Last Admin: 06/04/19 13:11 Dose: Not Given Propofol (Diprivan) 85 mg 1 mg/kg (85 mg) IV NOW ONE Stop: 06/04/19 10:21 Last Admin: 06/04/19 11:30 Dose: 85 mg Vital Signs - 8 hr 06/04/19 09:59 06/04/19 10:30 06/04/19 11:12 Temperature 97.8 F Pulse Rate 87 80 82 Respiratory Rate 18 19 18 Blood Pressure 179/64 H Blood Pressure [Right Arm] 151/57 H 147/65 H Pulse Oximetry 99 98 99 06/04/19 11:30 06/04/19 11:32 06/04/19 11:35 Temperature Pulse Rate 81 75 83 Respiratory Rate 16 16 18 Blood Pressure Blood Pressure [Right Arm] 133/81 174/87 H 130/61 Pulse Oximetry 99 99 99 06/04/19 11:40 06/04/19 12:31 06/04/19 13:07 Temperature Pulse Rate 81 82 84 Respiratory Rate 22 18 Blood Pressure Blood Pressure [Right Arm] 105/62 127/52 L 124/52 L Pulse Oximetry 97 100 100 06/04/19 13:35 Temperature 98.3 F Pulse Rate 78 Respiratory Rate 22 Blood Pressure 159/70 H Blood Pressure [Right Arm] Pulse Oximetry 100 MDM - Extremity Injury (Lower) Lab Data Point of Care Testing Test Results Not applicable Imaging Data hip left: Radiologist's impression: PROCEDURE: XR HIP W PEL IF DONE LT 2V INDICATIONS: disloction TECHNIQUE: AP pelvis with lateral view(s) of the left hip(s). COMPARISON: [facility], [place], XR HIP W PEL IF DONE LT 2V, 05/16/2019, 19:10. FINDINGS: Bones: Lateral curvature of the lower lumbar spine and diffuse spondylosis. Left hip arthroplasty is dislocated with superolateral displacement of the femoral head component. Hardware appears grossly intact where visualized. No acute fracture seen. Soft tissues: The visualized bowel gas pattern is normal. No suspicious soft tissue calcifications. IMPRESSION: Interval superolateral dislocation of left total hip arthroplasty since 05/16/19. Dictated by: Tereso Foote M.D. on 06/04/2019 at 10:1 hip #2: Radiologist's impression: PROCEDURE: XR PELVIS 1-2V INDICATIONS: status of hip, TECHNIQUE: Single view(s) of the pelvis acquired. COMPARISON: [facility], CR, XR HIP W PEL IF DONE LT 2V, 06/04/2019, 9:39. FINDINGS: Bones: Persistent left hip arthroplasty dislocation Soft tissues: Visualized bowel gas pattern is normal. No suspicious soft tissue calcifications. IMPRESSION: Persistent left total hip arthroplasty dislocation. Dictated by: Tereso Foote M.D. on 06/04/2019 at 12:00 MDM Narrative Medical decision making narrative: I spoke with Dr. Begum, orthopedics due to recent surgery and replacement. At this time she states okay to attempt reduction. Reduction very unsuccessful. Dr. Begum updated on outpatient. Hip is been out for 4 days would likely need to go to the OR. Dr. Cook request boot and traction to help. Traction will be set up on the floor. She will be kept NPO and go to OR later Discharge Plan Departure Patient Disposition: Admitted as Observation Clinical Impression: Dislocation of left hip Qualifiers: Encounter type: initial encounter Qualified Code(s): S73.005A - Unspecified dislocation of left hip, initial encounter Discharge Date/Time: 06/04/19 13:33 Interventions: ED Discharge Assessment Last Done: 06/04/19 13:18 Admit Date/Time: 06/04/19 11:54 Admit Provider: Michelle Berg
--- NOTE | 2019-06-04 10:12 | PC.NURSE ---
picc line left arm
[2019-06-04] MEDS: SODIUM CHLORIDE 0.9% 1,000 ML 100 ML IV (10:21)
[2019-06-04] MEDS: HYDROMORPHONE 1 MG INJ IV (10:21)
[2019-06-04] MEDS: PROPOFOL 200 MG/20 ML VIAL 85 MG IV (11:30)
--- NOTE | 2019-06-04 11:36 | DI.RAD.S_ITS ---
PROCEDURE: XR PELVIS 1-2V INDICATIONS: status of hip, TECHNIQUE: Single view(s) of the pelvis acquired. COMPARISON: [facility], CR, XR HIP W PEL IF DONE LT 2V, 06/04/2019, 9:39. FINDINGS: Bones: Persistent left hip arthroplasty dislocation Soft tissues: Visualized bowel gas pattern is normal. No suspicious soft tissue calcifications. IMPRESSION: Persistent left total hip arthroplasty dislocation. Dictated by: Tereso Foote M.D. on 06/04/2019 at 12:00 Approved by: Tereso Foote M.D. on 06/04/2019 at 12:01
--- NOTE | 2019-06-04 12:43 | PM.HP.1 ---
History of Present Illness Date Patient Seen: 06/04/19 Time Patient Seen: 17:11 Chief complaint: Dislocated hip Narrative: dislocated L GIA-- likely x 3 days . s/p complex revision GIA with Dr. daigle 05/16/19. and infection after ORIF for prox femur fx on ceftriaxone 2g q 24 with picc. unable to be reduced in ER. so admit for closed reduction in OR with GA She reports the event happened when she went to the bathroom by herself better sniff. She does state she was supposed to wait for someone to water but she done it successfully so many times and she waited and had to go badly so she went to the bathroom. When she got to the restroom the commode or chair lift was in the shower and not over the toilet so she lifted out of the shower and as she was putting it over the toilet the event happened. She thinks she must of been too far over. Patient History Medical History History of cervical cancer (Acute) RLS (restless legs syndrome) (Acute) Hypertension (Chronic) Hypothyroid (Chronic) Thyroid cancer (Chronic) Surgical History Status post hip surgery (Acute 04/02/19) Status post hip surgery (Acute ~02/2019) History of myomectomy (Chronic) History of thyroidectomy (Inactive) Family History Father Alcoholism Smoker Heart disease Stroke Mother No problems noted. Sister No problems noted. Social History (Updated 04/03/19 @ 03:43 by ANDRES Hopper) household members: none lives independently: Yes Smoking Status: Former smoker Tobacco: How many years used: 42 second hand exposure: No alcohol intake: current substance use type: marijuana additional social history: Reports smoking cigarettes from age 14 to age 56, 0.5 to 1 pack per day. Reports to drinking 2 glasses of wine daily and 1-2 shots of Vodka prior to bedtime. Notes this to be a lifelong practice. Family & Social History Family History Father Alcoholism Smoker Heart disease Stroke Mother No problems noted. Sister No problems noted. Social History: household members none lives independently Yes Tobacco & Substance use: Tobacco type cigarettes Smoking Status Former smoker alcohol intake current alcohol intake frequency 3 or more drinks per day Substance Use Type marijuana Meds Home Medications Medication Instructions Recorded Confirmed Type levothyroxine 75 mcg tablet 75 mcg PO DAILY #90 tab 02/13/19 06/04/19 Rx ascorbic acid (vitamin C) [Vitamin 500 mg PO BID #30 tab 03/11/19 06/04/19 Rx C] docusate sodium [DOK] 100 mg PO BID #30 cap 03/11/19 06/04/19 Rx ferrous sulfate [iron] 325 mg PO BID #60 tab 03/11/19 06/04/19 Rx ceftriaxone 2 gram IV Q24H #42 each 04/05/19 06/04/19 Rx acetaminophen 975 mg PO TID #60 tab 05/20/19 06/04/19 Rx aspirin 81 mg PO DAILY #20 tab 05/20/19 06/04/19 Rx Lactobacillus acidophilus 1 cap PO DAILY 06/04/19 06/04/19 History [Acidophilus] bisacodyl 5 - 10 mg PO PRN PRN 06/04/19 06/04/19 History bisacodyl 10 mg WI PRN PRN 06/04/19 06/04/19 History calcium carbonate 1,000 mg PO Q4H PRN 06/04/19 06/04/19 History cholecalciferol (vitamin D3) 2,000 unit PO DAILY 06/04/19 06/04/19 History [Vitamin D3] lisinopril-hydrochlorothiazide 1 tab PO DAILY 06/04/19 06/04/19 History magnesium hydroxide [Milk of 30 ml PO PRN PRN 06/04/19 06/04/19 History Magnesia] oxycodone 5 mg PO Q4H PRN 06/04/19 06/04/19 History oxycodone 10 mg PO Q4H PRN 06/04/19 06/04/19 History sodium phosphates [Fleet Enema] 1 ea [place] PRN PRN 06/04/19 06/04/19 History Allergies Allergy/AdvReac Type Severity Reaction Status Date / Time Jpmkplj-Lkm-Lsc Reductase AdvReac Intermediate myalgias, Verified 04/02/19 11:49 Inhibitor tinnitus [[id number] REDUCTASE INHIBITOR] Review of Systems Review of Systems Review of systems is positive for left hip pain. The patient has a history of an infection she is on antibiotics through her PICC line for this. She denies any fevers chills nausea or vomiting. History of poor nutrition with low albumin and recent labs. All systems reviewed & are unremarkable except as noted in HPI and below Exam Vital Signs (past 8 hours): - 06/04/19 09:59 06/04/19 10:30 06/04/19 11:12 Temperature 97.8 F Pulse Rate 87 80 82 Respiratory Rate 18 19 18 Blood Pressure 179/64 H Blood Pressure [Right Arm] 151/57 H 147/65 H Pulse Oximetry 99 98 99 06/04/19 11:30 06/04/19 11:32 06/04/19 11:35 Temperature Pulse Rate 76 75 83 Respiratory Rate 18 16 18 Blood Pressure Blood Pressure [Right Arm] 133/81 174/87 H 130/61 Pulse Oximetry 99 99 99 06/04/19 11:40 06/04/19 12:31 Temperature Pulse Rate 81 82 Respiratory Rate 22 Blood Pressure Blood Pressure [Right Arm] 105/62 127/52 L Pulse Oximetry 97 100 Oxygen Delivery Method Nasal Cannula Oxygen Flow Rate 3 Narrative Exam Narrative: General exam: Alert oriented no acute distress. HEENT normocephalic atraumatic. Lying comfortably in bed in skin traction 10 lb. Respiratory exam clear to auscultation. CV exam regular rate and rhythm. Abdomen soft. Moves upper extremities without restriction. No pain. Full range of motion. Right lower extremity nontender to palpation. Full range of motion. Skin intact no erythema. Left lower extremity and skin traction. Slightly shorter than contralateral extremity. Posterior incision with harmony dressing in place. No erythema no swelling no signs or symptoms of infection. No tenderness about the knee. Patient demonstrates 5/5 dorsiflexion plantar flexion. Brisk capillary refill. Wiggles toes. Assessment & Plan Assessment & Plan narrative: Patient has a dislocated left total hip prosthesis. This was unable to be reduced in the ER and therefore the patient has been indicated for reduction with general anesthetic. The patient has been in skin traction to aid with muscle relaxation. She does states this made her more comfortable. Plan is for a reduction under a general anesthesia. The risks benefits and alternatives to the procedure were discussed with the patient in detail including the risk for inability to reduce the hip, need for revision, fracture, skin tear, redislocation and risks of general anesthesia including cardiac and pulmonary complications. Patient understands and agrees with the procedure. Informed consent was signed. Plan after reduction would be posterior hip precautions. The use of a knee immobilizer or abduction pillow while in bed. And continue treatment with IV antibiotics through her PICC line. Time Spent With Patient Time with patient: 15-24 minutes Quality VTE Deep Vein Thrombosis/Pulmonary Embolism Present on Admission: No
--- NOTE | 2019-06-04 13:46 | PC.NURSE ---
Day shift: Pt on unit at approx 1330 from ED. Placed in traction per talking with head charger Adrian. Call light in reach. Bed alarm is on. Pt is NPO and agrees to not eat or drink anything.
[2019-06-04] MEDS: LACTATED RINGERS 1,000 ML 42 ML IV (19:00)
--- NOTE | 2019-06-04 19:39 | SUR.OPER ---
Supine on padded OR bed, head on pillow, arms secured on padded arm boards at <90 degrees abduction, legs uncrossed, safety belt at thigh, tape over blanket over lower legs.
--- NOTE | 2019-06-04 20:03 | PM.OP.1 ---
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 CPT code 52330 Same procedure as scheduled: Yes Indications: Patient is a 73-year-old female was had a complex course following a proximal femoral fracture. The patient was revised to a total hip arthroplasty. This was done on 05/16/[address] Baer. Patient was reportedly doing well until 3 days prior when she got up to the bathroom unassisted. She was lifting the commode from the shower over top of the toilet when she bent forward. She had pain deformity inability to weight bear. On 06/04/2018 the patient was brought to the [facility] from her facility where x-rays were taken confirming dislocation of her prosthesis. There was an unsuccessful reduction attempt in the emergency room and the patient was admitted with skin traction. She was indicated for closed reduction under general anesthesia to restore prosthesis congruity help with pain and dysfunction. The risks benefits and alternatives to the procedure were discussed with the patient in detail including but not limited to fracture, redislocation, continued instability. Skin tears. In cardiac and pulmonary complications of anesthesia. Informed consent was signed. Surgeon: Michelle Berg Click Yes if Unassisted: Yes Anesthesia Type: General Operative Notes Findings: Posterior superior dislocation and total hip prosthesis on the left. Closure Type: not applicable Specimen(s): none sent Applied: other (Abduction pillow) Estimated Blood Loss (mL): 0 Blood products transfused: none Tourniquet time (min): 0 Procedure in detail: The patient was seen in the preoperative area site of surgery was marked and informed consent was confirmed. Patient was brought back to the operating room and moved onto the operative table. A skin traction was discontinued. General anesthesia was administered. Formal time-out procedure was performed. No antibiotics were indicated for this closed procedure. All were in agreement. Utilizing a combination of flexion traction and internal and external rotation the left total hip prosthesis was reduced. This was done initially with a good clunk but with a slight testing in abduction quickly re-reduced with little effort. The hip was reduced again with a combination of flexion and traction maneuvers and once again confirmed in the socket. This was internally and externally rotated and stayed in place. Final AP and lateral images were obtained confirming reduction of the prosthesis. A abduction pillow was placed between the legs and the procedure was terminated. The patient was awoken from anesthesia and taken to the PACU in good condition. Leg lengths were appropriate with appropriate rotation at the end of the procedure. Complications: none Condition: stable Disposition: Acute Care Plan for aftercare: Abduction pillow. Posterior hip precautions. Follow-up with Dr. Baer.
--- NOTE | 2019-06-04 20:14 | P.OP_ITS ---
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 CPT code 63983 Same procedure as scheduled: Yes Indications: Patient is a 73-year-old female was had a complex course following a proximal femoral fracture. The patient was revised to a total hip arthroplasty. This was done on 05/16/[address] Baer. Patient was reportedly doing well until 3 days prior when she got up to the bathroom unassisted. She was lifting the commode from the shower over top of the toilet when she bent forward. She had pain deformity inability to weight bear. On 06/04/2018 the patient was brought to the [facility] from her facility where x-rays were taken confirming dislocation of her prosthesis. There was an unsuccessful reduction attempt in the emergency room and the patient was admitted with skin traction. She was indicated for closed reduction under general anesthesia to restore prosthesis congruity help with pain and dysfunction. The risks benefits and alternatives to the procedure were discussed with the patient in detail including but not limited to fracture, redislocation, continued instability. Skin tears. In cardiac and pulmonary complications of anesthesia. Informed consent was signed. Surgeon: Michelle Berg Click Yes if Unassisted: Yes Anesthesia Type: General Operative Notes Findings: Posterior superior dislocation and total hip prosthesis on the left. Closure Type: not applicable Specimen(s): none sent Applied: other (Abduction pillow) Estimated Blood Loss (mL): 0 Blood products transfused: none Tourniquet time (min): 0 Procedure in detail: The patient was seen in the preoperative area site of surgery was marked and informed consent was confirmed. Patient was brought back to the operating room and moved onto the operative table. A skin traction was discontinued. General anesthesia was administered. Formal time-out procedure was performed. No antibiotics were indicated for this closed procedure. All were in agreement. Utilizing a combination of flexion traction and internal and external rotation the left total hip prosthesis was reduced. This was done initially with a good clunk but with a slight testing in abduction quickly re- reduced with little effort. The hip was reduced again with a combination of flexion and traction maneuvers and once again confirmed in the socket. This was internally and externally rotated and stayed in place. Final AP and lateral images were obtained confirming reduction of the prosthesis. A abduction pillow was placed between the legs and the procedure was terminated. The patient was a woken from anesthesia and taken to the PACU in good condition. Leg lengths were appropriate with appropriate rotation at the end of the procedure. Complications: none Condition: stable Disposition: Acute Care Plan for aftercare: Abduction pillow. Posterior hip precautions. Follow-up with Dr. Baer.
--- NOTE | 2019-06-04 20:22 | PM.PNPO.1 ---
Subjective Date Patient Seen: 06/04/19 Time Patient Seen: 20:22 Interval history: Postop day 0 status post closed reduction left hip, total hip dislocation Exam Vital Signs (past 8 hours): - 06/04/19 12:31 06/04/19 13:07 06/04/19 13:35 Temperature 98.3 F Pulse Rate 82 84 78 Respiratory Rate 18 22 Blood Pressure 159/70 H Blood Pressure [Right Arm] 127/52 L 124/52 L Pulse Oximetry 100 100 100 06/04/19 16:00 06/04/19 20:00 06/04/19 20:05 Temperature 99.0 F 97 F L Pulse Rate 94 H 80 77 Respiratory Rate 18 13 12 Blood Pressure 137/82 137/64 143/62 H Blood Pressure [Right Arm] Pulse Oximetry 100 97 96 06/04/19 20:10 06/04/19 20:20 Temperature 98 F Pulse Rate 76 76 Respiratory Rate 12 15 Blood Pressure 141/67 H 140/53 L Blood Pressure [Right Arm] Pulse Oximetry 96 97 Oxygen Delivery Method Room Air Oxygen Flow Rate 0 Assessment & Plan Post-op Postoperative Procedures Operation Date: 06/04/19 19:30 Actual Procedures Side Surgeon p Closed Reduction of Dislocated Hip Left Michelle Berg MD plan: Posterior hip precautions. Abduction pillow at all times in bed. Discharge to snf. Follow-up with Dr. Baer as scheduled. Continue IV Rocephin per ID guidelines. Aspirin for DVT prophylaxis. Quality VTE Deep Vein Thrombosis/Pulmonary Embolism Present on Admission: No
[2019-06-04] MEDS: LACTATED RINGERS 1,000 ML 125 ML IV (21:07)
[2019-06-04] MEDS: DOCUSATE 100 MG CAPSULE PO (21:59)
[2019-06-04] MEDS: ASCORBIC ACID 500 MG TABLET PO (21:59)
[2019-06-04] MEDS: FERROUS SULFATE 325 MG TABLET PO (21:59)
[2019-06-04] MEDS: ACETAMINOPHEN 325 MG TABLET 975 MG PO (21:59)
[2019-06-04] MEDS: OXYCODONE IR 5 MG TABLET PO (23:58)
[2019-06-05] VITALS: BP 159/74; PULSE 85; RESP 14; TEMP 36.9; O2SAT 97
--- NOTE | 2019-06-05 00:49 | PC.NURSE ---
Patient is mildly anxious about hurting all over 5mg Percolone given per prn, repositioned for comfort, abductor pillow in place.
[2019-06-05] MEDS: LACTATED RINGERS 1,000 ML 125 ML IV ×2 (04:37→13:51)
[2019-06-05 04:40] VITALS: BP 114/57; PULSE 92; RESP 16; TEMP 36.7; O2SAT 96
[2019-06-05 08:15] VITALS: BP 112/61; PULSE 80; RESP 16; TEMP 36.6; O2SAT 96
--- NOTE | 2019-06-05 09:33 | PM.PNPO.1 ---
Subjective Date Patient Seen: 06/05/19 Time Patient Seen: 09:33 Interval history: Hospital day 2, postop day 1 following left total hip arthroplasty dislocation and closed reduction by Dr. Berg last night. Patient has been stable postoperatively. Using abduction pillow while in bed. Continue posterior hip precautions. Patient was at [facility] for postop care and receiving IV ceftriaxone because of strep infection to her hip area. This will be continued. Plan is for patient to return to [facility] but will need new authorization from [place]. Patient will work with PT/OT today. Exam Vital Signs (past 8 hours): - 06/05/19 04:40 06/05/19 08:15 Temperature 98.1 F 97.8 F Pulse Rate 92 H 80 Respiratory Rate 16 16 Blood Pressure 114/57 L 112/61 Pulse Oximetry 96 96 Oxygen Delivery Method Room Air Oxygen Flow Rate 0 Narrative Exam Narrative: Alert, oriented no acute distress resting in bed. Legs. Abduction pillow in place. Good pulses and sensation to feet. Assessment & Plan Post-op Postoperative Procedures Operation Date: 06/04/19 19:30 Actual Procedures Side Surgeon p Closed Reduction of Dislocated Hip Left Michelle Berg MD Plan: Patient will come continue working with PT/OT. Posterior hip precautions. Use abduction pillow while in bed. Anticipate discharge back to [facility] once authorization from [place]. Quality VTE Deep Vein Thrombosis/Pulmonary Embolism Present on Admission: No
[2019-06-05] MEDS: ACETAMINOPHEN 325 MG TABLET 975 MG PO ×3 (09:40→21:43)
[2019-06-05] MEDS: ASPIRIN EC 81 MG TABLET 325 MG PO (09:40)
[2019-06-05] MEDS: LISINOPRIL 10 MG TABLET PO (09:41)
[2019-06-05] MEDS: ASCORBIC ACID 500 MG TABLET PO ×2 (09:41→21:43)
[2019-06-05] MEDS: FERROUS SULFATE 325 MG TABLET PO ×2 (09:41→21:43)
[2019-06-05] MEDS: CHOLECALCIFEROL (VITAMIN D3) 1,000 UNIT TABLET 2000 UNIT PO (09:41)
[2019-06-05] MEDS: DOCUSATE 100 MG CAPSULE PO ×2 (09:41→21:43)
[2019-06-05] MEDS: LEVOTHYROXINE 75 MCG TABLET PO (09:42)
[2019-06-05] MEDS: LACTOBACILLUS ACIDOPHILUS TABLET 1 EACH PO (09:42)
[2019-06-05] MEDS: hydroCHLOROthiazide 12.5 MG CAPSULE PO (09:42)
[2019-06-05] MEDS: POLYETHYLENE GLYCOL 3350 17 GM POWD.PACK PO (10:40)
--- NOTE | 2019-06-05 10:51 | CM.DANOTE ---
Addendum entered by Monica Rob R.N. 06/05/19 15:14: Faxed over latest O.T. notes and P.T. notes. Will follow up with Abeba today, at [facility] Original Note: DCP: Case received, EMR reviewed and met with patient. Was able to get some baseline information regarding stay, and health history from Darline at [facility], as well as from patient. Introduced self and role to patient. Was able to complete DCP assessment with information currently available. Patient is a 73 year old female who admitted yesterday morning to the care of the orthopedic team. PCP: Caprice Burrows, PAC Payer: confirmed: [facility] of [facility] Advantage. Patient came to the hospital for a surgical procedure. She came from [facility], for she has been getting rehab for left hip replacement. She has been here before, from [facility] regarding complications from her hip. Patient stated that she was at [facility], had to use the restroom, and could not wait. She used her walker, and lifted the toilet commode out of the shower, and felt a pop. She stated that she thought that it was a muscle, but after a couple of days, consented to come back to the hospital. Patient had closed reduction of hip yesterday. Cam العراقي, PAC, asked about discharge today, but let him know that [facility] auth would be needed. According to patient, she has been at [facility] for the last 3 months. Checked in with Abeba, case therapist at [place]. She is consulting with a [facility] nurse, named Mari, who will be reviewing the case. Stated that she will need a new authorization, and will like P.T. notes. Let Abeba know that discharge back to [facility] should happen tomorrow. P: DCP to continue to follow. Will call Abeba back as soon as P.T. orders are faxed, for tomorrow discharge. Monica Rob RN/Manager Support
--- NOTE | 2019-06-05 11:07 | PT.IIE ---
Surgery Performed Operation Date: 06/04/19 19:30 Actual Procedures p Closed Reduction of Dislocated Hip(Left) - Michelle Berg MD Surgical History (Last Reviewed 06/04/19 @ 15:01 by Pina Glass DO) Status post hip surgery (Acute 04/02/19) Status post hip surgery (Acute ~02/2019) History of myomectomy (Chronic) History of thyroidectomy (Inactive) Medical History (Last Reviewed 06/04/19 @ 15:01 by Pina Glass DO) History of cervical cancer (Acute) RLS (restless legs syndrome) (Acute) Hypertension (Chronic) Hypothyroid (Chronic) Thyroid cancer (Chronic) Physical Therapy Inpatient Evaluation/Re-Eval M1 PT/OT-IP Prior Functional Status Start: 06/05/19 12:28 Freq: NEEDED Status: Active Protocol: Document 06/05/19 11:07 AB (Rec: 06/05/19 12:49 AB [email or web address]) Medical Review Prior Functional Status Medical History Reviewed Yes Communication able to make needs known Mobility and Gait pt had hip fx s/p ORIF back in december 2018. prior to hip fx, pt was independent with all mobilities and ambulation without AD. Prior Functional Level (Other details) February 2019: hip fx s/p ORIF; pt d/c'd to [facility], pt had hardware failure and underwent surgery and spacer placement for L hip last march. pt dc'd to [facility]. pt underwent L GIA last May 16, 2019 and was d/c'd to [facility] again. pt had a recent L GIA dislocation and underwent reduction 06/04/19. Social History Household Members none Living Arrangements House Number of Floors (Floors) Two Floors Number of Stairs To Enter/Railing? pt stays on main level of the house has 4 steps with L rail to enter the house Home Environment Standard Height Toilet Tub/Shower Home Equipment Front Wheel Walker Bedside Commode Hand Held Shower Additional Social History Comment pt stated that when she goes home, her friend will come in the morning to assist her with meals and then to back to her own home. M2 PT-IP Current Condition Start: 06/05/19 12:28 Freq: NEEDED Status: Active Protocol: Document 06/05/19 11:07 AB (Rec: 06/05/19 12:49 AB [email or web address]) Physical Therapy Current Condition Current Condition Evaluation Date 08/21/19 Treatment Diagnosis L GIA dislocation s/p reducation; difficulty in walking Onset Date 06/04/19 Precautions Posterior Hip Precautions No Hip Flexion > 90 degrees No Hip Internal Rotation No Hip Adduction Weight Bearing Status Weight Bearing Status Weight Bear as Tolerated M3 PT-IP Subjective Start: 06/05/19 12:28 Freq: NEEDED Status: Active Protocol: Document 06/05/19 11:07 AB (Rec: 06/05/19 12:49 AB [email or web address]) Subjective Physical Therapy Visit Type Type Initial Evaluation Visit Start Time 11:07 Visit Stop Time 11:40 Total Visit Minutes 33 Number of SCIENTIFIC GLASS BLOWER Visits 0 Physical Therapy Visit Comments Patient Comments pt agreeable to do PT Therapy Pain Assessment Pain When Pain Assessed At Rest Pain Present Pain Present Pain Reported Location Left Hip Intensity 3 Scale Used Numeric (1 - 10) Pain Management Techniques Re-positioning Timing of Activity with Medications M4 PT-IP Mobility and Gait Start: 06/05/19 12:28 Freq: NEEDED Status: Active Protocol: Document 06/05/19 11:07 AB (Rec: 06/05/19 12:49 AB [email or web address]) PT-Bed Mobility Assessment Supine to Sit Supine to Sit Standby Assistance 1 Person Assistance Bedrails Sit to Supine Sit to Supine Maximum Assistance 1 Person Assistance Scooting Scooting to Edge of Bed Moderate Assistance PT-Transfer Assessment Sit to and From Stand Sit to and from Stand Moderate Assistance 1 Person Assistance Use of Upper Extremities Equipment Transfer Assistive Device Gait Belt Front Wheeled Walker Orthotic/Prosthetic Devices or Brace: No Transfers Transfer Destination Chair Transfer Technique Stand Step Pivot Transfer Ability Level of Assist Minimal Assistance Moderate Assistance 1 Person Assistance Use of Upper Extremities Comments Mobility Comments pt completed supine to sit SBA using bed rail. pt completed sit to stand mod A and cues. pt completed sit <>stand x 2 with max cues mod A. pt transferred to the chair using FWW mod A. stated that she is tired but agreed to do ambulation. pt ambulated using FWW ~ 12 ft mod A and cues. pt refused to sit up on chair and wants to go back in bed. completed sit to supine max A for LLE elevation to bed. assisted in positioning. call light and table placed within reach. Gait Assessment Gait Gait Assistance Required: Moderate Assistance Distance (Feet) 12 Able to Maintain Weight Bearing Status Yes During Gait Assistive Devices Assistive Device Gait Belt Front Wheeled Walker Orthotic/Prosthetic Devices or Brace: No Gait Deviations General Gait Pattern Antalgic Decreased Stride Length Decreased Feet Clearance Step-to Gait Factors Limiting Gait Function Factors Limiting Gait Function Decreased Activity Tolerance Decreased Strength Limited Range of Motion Pain Poor Balance Poor Safety Awareness PT-Balance Assessment Sitting Balance and Reactions Static Sitting Balance Ability Good Dynamic Sitting Balance Ability Fair Standing Balance and Reactions Static Standing Balance Ability Fair Dynamic Standing Balance Ability Poor Device Used FWW M5 PT-IP Objective Assessments Start: 06/05/19 12:28 Freq: NEEDED Status: Active Protocol: Document 06/05/19 11:07 AB (Rec: 06/05/19 12:49 AB [email or web address]) Orientation Orientation/Cognition Level of Alertness Alert Orientation Name Place Situation Safety Awareness Decreased Safety Awareness Memory Description Short Term Impaired Gross Range of Motion Lower Extremity ROM Assessment Within Functional Limits Strength Lower Extremity Strength Assessment Left Impaired Hip 3-/5 Knee 3+/5 Muscle Tone Muscle Tone WNL Yes M6 PT-IP Treatment Start: 06/05/19 12:28 Freq: NEEDED Status: Active Protocol: Document 06/05/19 11:07 AB (Rec: 06/05/19 12:49 AB [email or web address]) Physical Therapy Treatment Education Education Provided Precautions Weight Bearing Status Safety M7 PT-IP Assessment and Plan Start: 06/05/19 12:28 Freq: NEEDED Status: Active Protocol: Document 06/05/19 11:07 AB (Rec: 06/05/19 12:49 AB [email or web address]) PT Summary Assessment and Plan Potential Rehabilitation Potential Good Status of Condition at Evaluation Stable Summary Impairments Pain ROM Strength Balance Coordination Sensation Tone Cognition Bed Mobility Transfers Gait Activity Tolerance Assessment Summary pt requiring mod A with mobility. requires cues to maintain hip precautions. pt will benefit from SNF rehab to improve mobility and safety. Goals Bed Mobility Goal Standby Assistance Transfer Goal Standby Assistance Front Wheeled Walker Gait Goal Standby Assistance Front Wheel Walker Gait Distance 150 Days to Meet Goals 3 Frequency of Treatment Frequency Of Treatment Twice a Day Treatment Plan Physical Therapy Treatment Plan Bed Mobility Training Transfer Training Gait Training Therapeutic Exercise Balance Retraining Post Op Education Discharge Planning Hot or Cold Pack Neuromuscular Re-ed Coordination Retraining Manual Therapy Recommendations To Nursing Amount of Assist Needed 1 Person Assist Discharge Recommendations PT Discharge Recommendations SNF Rehab
[2019-06-05 11:10] VITALS: BP 131/64; PULSE 74; RESP 16; TEMP 36.6; O2SAT 99
--- NOTE | 2019-06-05 14:20 | OT.IP.EVAL ---
Surgery Performed Operation Date: 06/04/19 19:30 Actual Procedures p Closed Reduction of Dislocated Hip(Left) - Michelle Berg MD Past Medical History (Last Reviewed 06/04/19 @ 15:01 by Pina Glass DO) History of cervical cancer (Acute) RLS (restless legs syndrome) (Acute) Hypertension (Chronic) Hypothyroid (Chronic) Thyroid cancer (Chronic) Surgical History (Last Reviewed 06/04/19 @ 15:01 by Pina Glass DO) Status post hip surgery (Acute 04/02/19) Status post hip surgery (Acute ~02/2019) History of myomectomy (Chronic) History of thyroidectomy (Inactive) Occupational Therapy Inpatient Evaluation/Re-Eval M1 PT/OT-IP Prior Functional Status Start: 06/05/19 12:28 Freq: NEEDED Status: Active Protocol: Document 06/05/19 14:20 PJM (Rec: 06/05/19 14:56 PJM [email or web address]) Medical Review Prior Functional Status Medical History Reviewed Yes Diet/Fluid Consistency Regular Communication WNL Mobility and Gait Prior to hip fx 03/08/19, pt was independent with all mobilities and ambulation without AD. 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 Prior Functional Level (Other details) 03/08/19 hip fx s/p ORIF; pt d/ c'd to [facility], developed infection with hardware failure and underwent surgery and antibiotic spacer placement 04/02/19. Pt dc'd to [facility]. Pt had complex L GIA by Dr Baer 05/16/19 and was d/c'd to [facility] again. Pt admitted 06/04/19 with L GIA dislocation 3 days prior, no s/p closed reduction 06/04/19. Social History Household Members none Living Arrangements House Number of Floors (Floors) Two Floors Number of Stairs To Enter/Railing? Pt stays on main level of the house. 4 steps with L rail ascending to enter. Pt plans to have high threshold into kitchen ramped. Home Environment Standard Height Toilet Tub/Shower Home Equipment Front Wheel Walker Manual Wheelchair Bedside Commode Tub Transfer Core Analysis Operator Held Shower Casino Runner Sock Aid Employment Status Self-Employed Additional Social History Comment Pt stated that when she goes home, her friend will spend the night and assist with dinner and breakfast prep. Pt has 2 daughters locally, but both work saw sharpener. She plans to hire private caregiers to assist with some research project manager. M2 OT-IP Current Condition Start: 06/05/19 14:26 Freq: Status: Active Protocol: Document 06/05/19 14:20 PJM (Rec: 06/05/19 14:56 PJ [email or web address]) Occupational Therapy Current Condition Current Condition Evaluation Date 06/05/19 Treatment Diagnosis decreased self care, mobility s/p L hip dislocation s/p closed reduction Diagnosis Onset Date 06/04/19 Post Operative Precautions Posterior Hip Precautions No Hip Flexion > 90 degrees Other Precautions abduction pillow in bed Weight Bearing Status Weight Bearing Status Weight Bear as Tolerated M3 OT- IP Subjective and Pain Start: 06/05/19 14:26 Freq: Status: Active Protocol: Document 06/05/19 14:20 PJM (Rec: 06/05/19 14:56 PJ [email or web address]) OT- Subjective Occupational Therapy Visit Type Type Initial Evaluation Visit Start Time 13:45 Visit Stop Time 14:20 Total Visit Minutes 35 Occupational Therapy Visit Comments Patient Comments I remember those precautions . I can list them. 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 OT Pain Assessment Pain When Pain Assessed At Rest Pain Present Pain Present Pain Reported Location Left Hip Intensity 2 Scale Used Numeric (1 - 10) Description Aching Acute M4 OT- IP ADL's Start: 06/05/19 14:26 Freq: Status: Active Protocol: Document 06/05/19 14:20 PJM (Rec: 06/05/19 14:56 [facility] [email or web address]) OT [id number] General Evaluation Self-Feeding Ability Independent Comments OT Self-Feeding Comments after set up in bed OT ADL-Grooming General Evaluation Grooming Ability Independent Areas Needing Assistance Retrieving/Set-up of Grooming Items Comments OT Grooming Comments needs set up in bed, pt has been doing grooming seated in W/C at [facility] but states w/c won' t fit into bathroom at home OT ADL-Oral Care General Eval Oral Care Ability Independent Areas of Assistance Retrieving/Set-Up of Items Comments Oral Care Comments in bed OT ADL-Dressing General Eval Upper Body Dressing Ability Standby Assistance Lower Body Dressing Ability Moderate Assistance Areas Needing Assistance Retrieving/Set-up of Clothing Underpants/Brief Socks Shoes Assistive Devices Dressing Assistive Devices Casino Runner Sock Aid Comments OT Dressing Comments Pt total assist with shoes. Pt familiar with use of mash tub cooker operator and sock aid but needs verbal cues and assist to adhere to to precautions during functional tasks. Provided education re: optimal shoe selection and possible use of dressing stick to mange zippers on low boots. OT ADL-Toileting General Evaluation Toileting Ability Total Assistance Areas Needing Assistance Empty Catheter or Colostomy Comments OT Toileting Comments did not occur this session, caraballo in place OT ADL-Bathing Comments OT Bathing Comments to be assessed as mobility improves M5 OT- IP IADL's Start: 06/05/19 14:26 Freq: Status: Active Protocol: Document 06/05/19 14:20 PJM (Rec: 06/05/19 14:56 [facility] [email or web address]) OT-Instrumental Activities of Daily Living Deficits IADL Deficits Identified Deficits Home Safety Awareness Awareness of Need for Assistance at Home Decreased Awareness Ability to Problem Solve Emergency Able to Problem Solve Situations Home Safety Comments Note pt was trying to move bedside commode from shower stall to over toilet when dislocation occurred. Needs verbal cues to apply posterior hip precautions during functional tasks and educated re: need to avoid combined flexion with turning /twisting . Medication Management Medication Management No Deficits Identified Money Management Money Management No Deficits Identified Meal Preparation Meal Preparation Comments Needs total assist with meal prep at present. Began education re: methods to carry items from counter to table in kitchen. Sales Support Engineer Sales Support Engineer Comments total assist at present Driving Driving Comments total assist at present M6 OT- IP Functional Cognition Start: 06/05/19 14:26 Freq: Status: Active Protocol: Document 06/05/19 14:20 PJM (Rec: 06/05/19 14:56 [facility] [email or web address]) Cognitive Factors Limiting Selfcare Function Cognitive Ability Level of Alertness Alert Patient Orientation Name Age Birthday Month Date Year Day of Week Place Situation Attention Span Ability Capable of Focused Attention Capable of Sustained Attention Ability to Follow Commands Able to Follow One Step Commands Safety Awareness Decreased Ability to Apply Precautions Problem Solving Ability Unable to Identify Errors Needs Assist to Identify Solutions Cognitive Comments Cognitive Assessment Comments Pt verbalizes 3/3 posterior hip precautions but needs verbal cues and assist to apply them. OT- Vision and Hearing OT- Hearing Assessment OT- Hearing Assessment WFL OT- Vision Assessment Visual Acuity WFL Glasses All The Time Vision Assessment Comments Pt does not have glasses here, friend to bring them. M7 OT- IP Mobility and Balance Start: 06/05/19 14:26 Freq: Status: Active Protocol: Document 06/05/19 14:20 PJM (Rec: 06/05/19 14:56 PJM [email or web address]) OT-Transfer Assessment Comments Mobility Comments Pt declined OOB this session dure to very uncomfortable in chair here. Pt sits in her manual w/c with cushion at [facility] . See P.T. notes OT- Gait Assessment Comments Gait Ability Comments see P.T. notes OT- Balance Assessment Comments Other Balance Tests/Deviations/Treatment see P.T. notes : M8 OT- IP Objective Assessments Start: 06/05/19 14:26 Freq: Status: Active Protocol: Document 06/05/19 14:20 PJM (Rec: 06/05/19 14:56 PJM [email or web address]) OT Gross Range of Motion Upper Extremity Range of Motion Assessment Within Functional Limits OT Strength Upper Extremity Strength Assessment Within Functional Limits OT- Coordination Assessment Comments Coordination Comments Pt reports decreased handwriting legibility over past 3 months. Provided education re: methods to increase legibility as needed for pt's return to managing her own business. OT-Muscle Tone Assessment Muscle Tone WNL Yes OT Sensation Assessment Comments Summary Comments Pt denies deficits in BUE's Edema Edema Absent M9 OT- IP Assessment and Plan Start: 06/05/19 14:26 Freq: Status: Active Protocol: Document 06/05/19 14:20 PJM (Rec: 06/05/19 14:56 PJM [email or web address]) OT Summary Assessment and Plan Potential Rehabilitation Potential Good Analytic Complexity at Evaluation Low Summary OT Impairments Pain Functional Mobility Grooming Dressing Toileting Bathing Toilet Transfers Shower Transfers Assessment Summary Low complexity assessment completed on this 73 yr old pt with complicated hx of L hip fx, infection, antiobiotic spacer placement, GIA, then admitted 06/04/19 with dislocation with closed reduction under anesthesia. Pt now has posterior hip precautions, WBAT. Pt has spent past 3 months in hospital or at [facility] SN[facility]. Pt currently has new performance deficits in activity tolerance, all functional mobility/transfers, standing grooming, lower body dressing, bathing and toileting; as well as all IADLS needed to live home alone. Pt not safe to return home at this time. Recommend return to SNF for further rehab services after this latest setback. Pt will benefit from OT services here to address acute care goals below. Goals Grooming Goal Standby Assistance Dressing Goal Minimal Assistance Long Handled Shoe [place] Casino Runner Sock Aid Toileting Goal Standby Assistance Bathing Goal Minimal Assistance Grab Bars Hand Held Shower Sprayer Long Handled Sponge or [place] Toilet Transfer Goal Standby Assistance Shower Transfer Goal Minimal Assistance Walk-in Shower Shower Chair Grab Bars Patient/Caregiver Education Goal Demonstrate Post-Op Precautions Demonstrate Energy Conservation and Pacing OT-Other Goals Grooming to be done standing at sink for 5+min with good safety awareness. Pt to have 100% legible handwriting as needed for entries in calendar and work documents. Days to Meet Goals 5 Frequency of Treatment Frequency Of Treatment Once a Day Treatment Plan OT Treatment Plan ADL Training Functional Mobility Patient/Family Education Discharge Planning Discharge Recommendations OT Discharge Recommendations SNF Rehab Home Equipment Needs to be determined in next rehab setting
--- NOTE | 2019-06-05 14:40 | PT.IPTN ---
Surgery Performed Operation Date: 06/04/19 19:30 Actual Procedures p Closed Reduction of Dislocated Hip(Left) - Michelle Berg MD Physical Therapy Treatment Note M2 PT-IP Current Condition Start: 06/05/19 12:28 Freq: NEEDED Status: Active Protocol: Document 06/05/19 11:07 AB (Rec: 06/05/19 12:49 AB [email or web address]) Physical Therapy Current Condition Current Condition Evaluation Date 06/05/19 Treatment Diagnosis L GIA dislocation s/p reducation; difficulty in walking Onset Date 06/04/19 Precautions Posterior Hip Precautions No Hip Flexion > 90 degrees No Hip Internal Rotation No Hip Adduction Weight Bearing Status Weight Bearing Status Weight Bear as Tolerated M3 PT-IP Subjective Start: 06/05/19 12:28 Freq: NEEDED Status: Active Protocol: Document 06/05/19 14:40 AB (Rec: 06/05/19 16:32 AB [email or web address]) Subjective Physical Therapy Visit Type Type Treatment Note Visit Start Time 14:40 Visit Stop Time 15:10 Total Visit Minutes 30 Number of YARDING ENGINEER Visits 0 Physical Therapy Visit Comments Patient Comments pt agreeable to do PT Therapy Pain Assessment Pain When Pain Assessed At Rest Pain Present Pain Present Pain Reported Location Left Hip Intensity 2 Scale Used increases with mobility to 8/ 10 Pain Behaviors Facial Grimacing Guarding Holding Area Wincing Pain Management Techniques Re-positioning Timing of Activity with Medications M4 PT-IP Mobility and Gait Start: 06/05/19 12:28 Freq: NEEDED Status: Active Protocol: Document 06/05/19 14:40 AB (Rec: 06/05/19 16:32 AB [email or web address]) PT-Bed Mobility Assessment Supine to Sit Supine to Sit Standby Assistance Head of Bed Elevated Bedrails Sit to Supine Sit to Supine Maximum Assistance 1 Person Assistance 2 Person Assistance Bedrails PT-Transfer Assessment Sit to and From Stand Sit to and from Stand Moderate Assistance 1 Person Assistance Use of Upper Extremities Equipment Transfer Assistive Device Gait Belt Front Wheeled Walker Comments Mobility Comments pt completed suine to sit SBA with use of bed rail and HOB slightly elevated. pt completed sit <>stand x 2 reps mod A and cues to maintain hip precautions. pt ambulated in room ~ 8 using FWW max A and max cues. pt c/o increase pain. assisted pt back in bed requiring max A for sit to supine and max A x 2 for repositioning in bed. call light and table placed within reach. Gait Assessment Gait Gait Assistance Required: Maximum Assistance Distance (Feet) 8 Able to Maintain Weight Bearing Status Yes During Gait Assistive Devices Assistive Device Gait Belt Front Wheeled Walker Orthotic/Prosthetic Devices or Brace: No Gait Deviations General Gait Pattern Antalgic Decreased Stride Length Decreased Feet Clearance Step-to Gait Factors Limiting Gait Function Factors Limiting Gait Function Decreased Activity Tolerance Decreased Strength Limited Range of Motion Pain Poor Balance Poor Safety Awareness Comments Gait Comments pt c/o increase pain on L hip affecting weight bearing. pt presents with antalgic gai and increase L knee flexion. pt unable to put L foot flat on the floor due to c/o increase hip pain. M5 PT-IP Objective Assessments Start: 06/05/19 12:28 Freq: NEEDED Status: Active Protocol: Document 06/05/19 11:07 AB (Rec: 06/05/19 12:49 AB [email or web address]) Orientation Orientation/Cognition Level of Alertness Alert Orientation Name Place Situation Safety Awareness Decreased Safety Awareness Memory Description Short Term Impaired Gross Range of Motion Lower Extremity ROM Assessment Within Functional Limits Strength Lower Extremity Strength Assessment Left Impaired Hip 3-/5 Knee 3+/5 Muscle Tone Muscle Tone WNL Yes M6 PT-IP Treatment Start: 06/05/19 12:28 Freq: NEEDED Status: Active Protocol: Document 06/05/19 14:40 AB (Rec: 06/05/19 16:32 AB [email or web address]) Physical Therapy Treatment Education Education Provided Precautions Weight Bearing Status Safety M7 PT-IP Assessment and Plan Start: 06/05/19 12:28 Freq: NEEDED Status: Active Protocol: Document 06/05/19 14:40 AB (Rec: 06/05/19 16:32 AB [email or web address]) PT Summary Assessment and Plan Potential Rehabilitation Potential Fair Summary Impairments Pain ROM Strength Balance Coordination Sensation Tone Cognition Bed Mobility Transfers Gait Activity Tolerance Progress Towards Goals Slow Progress due to Pain Slow Progress due to Medical Issues Assessment Summary pt with c/o increase L hip pain this afternoon requiring increase assistance to max A with mobility/ambulation. pt will benefit from SNF rehab to improve strength and function . Goals Bed Mobility Goal Standby Assistance Transfer Goal Standby Assistance Front Wheeled Walker Gait Goal Standby Assistance Front Wheel Walker Gait Distance 150 Days to Meet Goals 3 Frequency of Treatment Frequency Of Treatment Twice a Day Treatment Plan Physical Therapy Treatment Plan Bed Mobility Training Transfer Training Gait Training Therapeutic Exercise Balance Retraining Post Op Education Discharge Planning Hot or Cold Pack Neuromuscular Re-ed Coordination Retraining Manual Therapy Recommendations To Nursing Amount of Assist Needed 1 Person Assist Discharge Recommendations PT Discharge Recommendations SNF Rehab
[2019-06-05] MEDS: OXYCODONE IR 5 MG TABLET PO ×3 (15:36→21:34)
[2019-06-05] MEDS: CEFTRIAXONE 2 GM/50 ML FROZ.PIGGY IV (15:37)
[2019-06-05 16:13] VITALS: BP 137/71; PULSE 83; RESP 20; TEMP 36.6; O2SAT 98
[2019-06-05 19:17] VITALS: BP 147/66; PULSE 79; RESP 19; TEMP 36.4; O2SAT 97
[2019-06-06] VITALS (16 sets, daily range): BP systolic 113–159; BP diastolic 55–82; PULSE 64–108; RESP 16–20; TEMP 36.4–37.1; O2SAT 93–100
--- NOTE | 2019-06-06 | DI.RAD.S_ITS ---
PROCEDURE: XR HIP LT 1V INDICATIONS: CLOSED REDUCTION OF LEFT HIP TECHNIQUE: 2 fluoroscopic views of the hip were acquired. COMPARISON: [facility], CR, XR HIP W PEL IF DONE LT 2V, 06/04/2019, 19:38. Pelvic radiograph. FINDINGS: Left hip arthroplasty is now within the acetabular cup. No fracture identified. Heterotopic calcification about the femoral trochanters. IMPRESSION: Interval closed reduction of the left hip. Dictated by: Yuan Morrison M.D. on 06/06/2019 at 18:14 Approved by: Yuan Morrison M.D. on 06/06/2019 at 18:16
--- NOTE | 2019-06-06 01:32 | PC.NURSE ---
0100 checked pt. she's sound asleep will assess when she wakes up.
[2019-06-06] MEDS: OXYCODONE IR 5 MG TABLET PO ×2 (01:50→08:43)
[2019-06-06] MEDS: LEVOTHYROXINE 75 MCG TABLET PO (06:56)
--- NOTE | 2019-06-06 08:39 | DI.RAD.S_ITS ---
PROCEDURE: XR PELVIS 1-2V INDICATIONS: Increased left hip pain post hip dislocation/relocation TECHNIQUE: 2 view(s) of the pelvis acquired. COMPARISON: [facility], CR, XR HIP W PEL IF DONE LT 2V, 06/04/2019, 9:39. [facility], CR, XR PELVIS 1-2V, 06/04/2019, 11:43. FINDINGS: Bones: No fractures but there is a superior dislocation of the humeral head component of the left hip prosthesis from the acetabular component.. No suspicious bony lesions. Soft tissues: Visualized bowel gas pattern is normal. No suspicious soft tissue calcifications. IMPRESSION: Recent left total hip arthroplasty, persistent superior dislocation of the humeral head component of the arthroplasty from the acetabular component. No nasal bone fracture found. Dictated by: Tim Rojo M.D. on 06/06/2019 at 10:03 Approved by: Tim Rojo M.D. on 06/06/2019 at 10:05
[2019-06-06] MEDS: LACTOBACILLUS ACIDOPHILUS TABLET 1 EACH PO (08:40)
[2019-06-06] MEDS: hydroCHLOROthiazide 12.5 MG CAPSULE PO (08:40)
[2019-06-06] MEDS: LISINOPRIL 10 MG TABLET PO (08:41)
[2019-06-06] MEDS: ASPIRIN EC 81 MG TABLET 325 MG PO (08:41)
[2019-06-06] MEDS: ASCORBIC ACID 500 MG TABLET PO ×2 (08:41→22:29)
[2019-06-06] MEDS: CHOLECALCIFEROL (VITAMIN D3) 1,000 UNIT TABLET 2000 UNIT PO (08:41)
[2019-06-06] MEDS: DOCUSATE 100 MG CAPSULE PO ×2 (08:41→22:29)
[2019-06-06] MEDS: FERROUS SULFATE 325 MG TABLET PO ×2 (08:42→22:29)
[2019-06-06] MEDS: POLYETHYLENE GLYCOL 3350 17 GM POWD.PACK PO (08:42)
[2019-06-06] MEDS: ACETAMINOPHEN 325 MG TABLET 975 MG PO ×2 (08:42→22:29)
[2019-06-06] MEDS: HYDROMORPHONE 1 MG INJ 0.5 MG IV (09:10)
--- NOTE | 2019-06-06 10:15 | PT.IPTN ---
Surgery Performed Operation Date: 06/04/19 19:30 Actual Procedures p Closed Reduction of Dislocated Hip(Left) - Michelle Berg MD Physical Therapy Treatment Note M2 PT-IP Current Condition Start: 06/05/19 12:28 Freq: NEEDED Status: Active Protocol: Document 06/05/19 11:07 AB (Rec: 06/05/19 12:49 AB [email or web address]) Physical Therapy Current Condition Current Condition Evaluation Date 06/05/19 Treatment Diagnosis L GIA dislocation s/p reducation; difficulty in walking Onset Date 06/04/19 Precautions Posterior Hip Precautions No Hip Flexion > 90 degrees No Hip Internal Rotation No Hip Adduction Weight Bearing Status Weight Bearing Status Weight Bear as Tolerated M3 PT-IP Subjective Start: 06/05/19 12:28 Freq: NEEDED Status: Active Protocol: Document 06/06/19 10:15 GGD (Rec: 06/06/19 10:15 GGD [email or web address]) Subjective Physical Therapy Visit Type Type Administrative Note Notes Per MD D/C therapy wait for new orders once medically stable. Document 06/06/19 10:15 GGD (Rec: 06/06/19 10:15 GGD [email or web address]) PT Summary Assessment and Plan Frequency of Treatment Frequency Of Treatment Discharge
--- NOTE | 2019-06-06 10:26 | P.PN_ITS ---
Subjective Date Patient Seen: 06/06/19 Time Patient Seen: 10:22 Interval history: Hospital day 3, postop day 2 following left total hip arthroplasty dislocation/closed reduction by Dr. Berg. She has been using abduction pillow in bed. Patient complaining of severe left hip pain this m orning and difficulty moving her leg. States having onset of leg pain after working with PT yesterday. Exam Vital Signs (past 8 hours): - 06/06/19 06:00 06/06/19 08:30 06/06/19 08:41 Temperature 98.0 F 97.8 F Pulse Rate 79 79 Respiratory Rate 16 18 Blood Pressure 121/55 L 156/71 H 155/71 H Pulse Oximetry 93 98 Oxygen Delivery Method Room Air Oxygen Flow Rate 0 Narrative Exam Narrative: Patient is alert and responsive. In moderate discomfort lying in bed. Abduction pillow in place. No calf pain or swelling. Pulses and sensation to leg normal. Patient has significant pain with has slight motion of the hip. X-ray. AP view of left hip notes superior dislocation of hip prosthesis. Assessment & Plan Post-op Postoperative Procedures Operation Date: 06/04/19 19:30 Actual Procedures Side Surgeon p Closed Reduction of Dislocated Hip Left Michelle Berg MD Plan: I did contact Dr. Berg by phone. Plan is for patient to be NPO at this time and plan to do closed reduction again this afternoon in the OR. Patient will then be left in in bed and with abduction pillow and no therapy. Will then wait return of Dr. Baer to determine about the revision total hip arthroplasty to prevent redislocation. Operation Date: 06/06/19 16:30 <No data on this case meets the specified criteria> Quality VTE Deep Vein Thrombosis/Pulmonary Embolism Present on Admission: No
--- NOTE | 2019-06-06 10:48 | OT.IP.TRT ---
Surgery Performed Operation Date: 06/04/19 19:30 Actual Procedures p Closed Reduction of Dislocated Hip(Left) - Michelle Berg MD Operation Date: 06/06/19 16:30 <No data on this case meets the specified criteria> Occupational Therapy Treatment Note M2 OT-IP Current Condition Start: 06/05/19 14:26 Freq: Status: Active Protocol: Document 06/05/19 14:20 PJM (Rec: 06/05/19 14:56 PJM [email or web address]) Occupational Therapy Current Condition Current Condition Evaluation Date 06/05/19 Treatment Diagnosis decreased self care, mobility s/p L hip dislocation s/p closed reduction Diagnosis Onset Date 06/04/19 Post Operative Precautions Posterior Hip Precautions No Hip Flexion > 90 degrees Other Precautions abduction pillow in bed Weight Bearing Status Weight Bearing Status Weight Bear as Tolerated M3 OT- IP Subjective and Pain Start: 06/05/19 14:26 Freq: Status: Active Protocol: Document 06/06/19 10:48 PJM (Rec: 06/06/19 11:03 PJM [email or web address]) OT- Subjective Occupational Therapy Visit Type Type Administrative Note Visit Start Time 10:30 Notes Per RN, pt had L hip dislocation overnight. Will hold OT services due to change in medical status and wait for re-orders.
--- NOTE | 2019-06-06 10:48 | CM.DPC ---
DCP Cont: Spoke to Abeba at [facility], and stated that patient was to be authorized to go back to [facility] today. 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 Discussed patient at team rounds, and Cam العراقي had stated that she had dislocated her hip in the middle of the night, so she would not be discharged today. Updated Darline at [facility] that patient was not discharging today, and updated Abeba at [facility] as well. P: DCP to continue to follow. Patient may be having another surgical procedure. Will continue to update [facility] on status. Monica Rob RN/Hazardous Waste Management Specialist
[2019-06-06] MEDS: HYDROMORPHONE 0.5 MG INJ IV (13:34)
[2019-06-06] MEDS: LACTATED RINGERS 1,000 ML 42 ML IV (17:10)
[2019-06-06] MEDS: CEFTRIAXONE 2 GM/50 ML FROZ.PIGGY IV (17:11)
--- NOTE | 2019-06-06 17:13 | PM.PREOP ---
Pre-operative Note Interval Note History & Physical reviewed/Exam performed by Physician: Yes Changes to H&P: No
--- NOTE | 2019-06-06 17:13 | SUR.HOLD ---
Verified ok to start Ceftriaxone with Dr. Berg
--- NOTE | 2019-06-06 17:44 | PM.OP.1 ---
Operative Date/Time/Diagnoses Date of procedure: 06/06/19 Time of procedure: 15:25 Pre-op diagnosis: Left total hip arthroplasty with dislocation Post-op diagnosis: same Procedure & Clinicians Procedure: Closed reduction left hip prosthetic dislocation CPT code 13373 Same procedure as scheduled: Yes Indications: Patient is a 73-year-old female that had a complex course including a proximal femur fracture ORIF that went on to failure and then revision into a total hip arthroplasty. The patient dislocated her hip ball last week's this was closed reduced in the OR 2 days ago. The patient got up with physical therapy again and redislocated. Due to the patient's extreme discomfort on the floor she was indicated for repeat closed reduction under general anesthetic. The risks benefits and alternatives were discussed with the patient. Informed consent was signed. Surgeon: Michelle Berg Click Yes if Unassisted: Yes Anesthesia Type: General Operative Notes Findings: Posterior superior left hip prosthesis dislocation. Of note a decreased effort was required to reduce the hip this time compared to the previous however once again with little effort in adduction the hip redislocated easily. This was put back in place and confirmed on fluoroscopy and the patient was secured in abduction pillow. Additionally per the patient's request her anna were removed and bandage changed in the operating room in the same setting today. Closure Type: not applicable Specimen(s): none sent Estimated Blood Loss (mL): 0 Tourniquet time (min): 0 Procedure in detail: Patient was seen in the preoperative unit and the consent was discussed and obtained. Site of procedure was signed. Questions were answered. Patient was brought back to the operating room by the anesthesia team. Patient was placed under general anesthesia on the hospital bed and then moved to the operative table. Patient was positioned supine fashion. Formal time-out procedure was performed confirming the patient's site and side of procedure and informed consent. The patient was then rotated up onto her side her harmony dressing was removed as it was greater than 2 weeks after her surgery and the incision was appropriate for staple removal. These were removed. There is no erythema or signs or symptoms of infection. A new dressing was placed. At this point attention was turned to the left hip. Utilizing a pelvis stabilization and water ski type traction with the hip flexion and alternating adduction abduction the hip was reduced into the socket then tested in slight adduction and redislocated easily. The reduction remover was repeated and confirmed with intraoperative fluoroscopy. An abduction pillow was placed between the legs and final fluoroscopic image was taken again confirming reduction. Anesthesia was then terminated and the patient was moved back onto the hospital bed. There were no immediate complications from this procedure. The patient was awoken from anesthesia without incident. Complications: none Condition: stable Disposition: Acute Care Plan for aftercare: Nonweightbearing bed rest in abduction pillow at all times. No PT OT. DVT prophylaxis with Lovenox. Will follow up with Dr. Baer regarding definitive plan for this patient complex medical history and recurrent dislocations.
[2019-06-07] VITALS (7 sets, daily range): BP systolic 115–153; BP diastolic 57–75; PULSE 69–77; RESP 16–18; TEMP 36.4–37.2; O2SAT 94–99
[2019-06-07] MEDS: LEVOTHYROXINE 75 MCG TABLET PO (06:25)
[2019-06-07] MEDS: DOCUSATE 100 MG CAPSULE PO ×2 (08:58→20:18)
[2019-06-07] MEDS: ACETAMINOPHEN 325 MG TABLET 975 MG PO ×3 (08:58→20:17)
[2019-06-07] MEDS: POLYETHYLENE GLYCOL 3350 17 GM POWD.PACK PO (08:59)
[2019-06-07] MEDS: CHOLECALCIFEROL (VITAMIN D3) 1,000 UNIT TABLET 2000 UNIT PO (08:59)
[2019-06-07] MEDS: ENOXAPARIN 40 MG/0.4 ML SYRINGE SUBCUT (08:59)
[2019-06-07] MEDS: ASCORBIC ACID 500 MG TABLET PO ×2 (08:59→20:18)
[2019-06-07] MEDS: ASPIRIN EC 81 MG TABLET PO (08:59)
[2019-06-07] MEDS: FERROUS SULFATE 325 MG TABLET PO ×2 (08:59→20:18)
[2019-06-07] MEDS: LISINOPRIL 10 MG TABLET PO (08:59)
[2019-06-07] MEDS: LACTOBACILLUS ACIDOPHILUS TABLET 1 EACH PO (09:00)
[2019-06-07] MEDS: hydroCHLOROthiazide 12.5 MG CAPSULE PO (09:00)
[2019-06-07] MEDS: SODIUM CHLORIDE 0.9% FLUSH 10 ML IV ×2 (09:01→22:19)
--- NOTE | 2019-06-07 09:20 | PM.PNPO.1 ---
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 Initially dislocated on 06/04, underwent closed reduction under GA that same day. Had recurrent dislocation while working with PT yesterday and underwent second closed reduction under GA. Since then her pain has been well controlled. She has been on bed rest with abductor pillow. Lopez cather in place. Exam Vital Signs (past 8 hours): - 06/07/19 05:53 06/07/19 07:52 Temperature 97.7 F 97.9 F Pulse Rate 74 69 Respiratory Rate 18 18 Blood Pressure 115/61 127/60 Pulse Oximetry 98 98 Oxygen Delivery Method Nasal Cannula Oxygen Flow Rate 0 Narrative Exam Narrative: 73 year old female resting comfortably in bed. Patient is alert and oriented. Abductor pillow in place. Sensation intact in B/L lower extremities. Calves soft, compressible. Palpable pedal pulses. Assessment & Plan Post-op Postoperative Procedures Operation Date: 06/04/19 19:30 Actual Procedures Side Surgeon p Closed Reduction of Dislocated Hip Left Michelle Berg MD Operation Date: 06/06/19 16:30 Actual Procedures Side Surgeon p Closed Reduction Dislocated Hip Left Michelle Berg MD Patient is to remain on bedrest with abductor pillow in place. No PT/OT at this time due to risk of dislocation. Continue pain control. Continue Lovenox for DVT prophylaxis. Definitive plan for management pending evaluation by Dr. Baer. Quality VTE Deep Vein Thrombosis/Pulmonary Embolism Present on Admission: No
--- NOTE | 2019-06-07 14:05 | CM.DPC ---
DCP: continued: Case received, EMR reviewed. Discussed in Team Rounds. Care Team members report that pt had another dislocation of hip yesterday and OT/PT is now on hold. Pt is to continue with hospital level care, on bedrest and Dr. Baer will see her when she returns on Sunday 06/10. [place] CM/SNF coordinator Mari (working in coordination with [place] CM /Abeba) has called for update. She notes she will pass this on to weekend [place] crew and with pt expected to remain in the hospital until at least Monday. DCP team will be following. Per prior DCP notes pt will return to [facility] when stable for same (and pending [place] confirmation of snf authorization.)
[2019-06-07] MEDS: FLUCONAZOLE 100 MG TABLET PO (16:17)
[2019-06-07] MEDS: OXYCODONE IR 5 MG TABLET PO (21:36)
--- NOTE | 2019-06-07 22:53 | PC.NURSE ---
Pt is A and O x 4, VSS. She is frustrated at laying in bed, the time frame of three months that she has been dealing with her hip. Her pain spiked late in the evening to 7/10 and she got good relief from 5 mg oxycodone.
[2019-06-08] MEDS: LEVOTHYROXINE 75 MCG TABLET PO (06:27)
[2019-06-08 06:44] VITALS: BP 147/77; PULSE 75; RESP 15; TEMP 36.4; O2SAT 96
[2019-06-08 07:45] VITALS: BP 151/77; PULSE 71; RESP 16; TEMP 36.7; O2SAT 95
[2019-06-08] MEDS: POLYETHYLENE GLYCOL 3350 17 GM POWD.PACK PO (08:45)
[2019-06-08] MEDS: CHOLECALCIFEROL (VITAMIN D3) 1,000 UNIT TABLET 2000 UNIT PO (08:45)
[2019-06-08] MEDS: DOCUSATE 100 MG CAPSULE PO (08:45)
[2019-06-08] MEDS: FERROUS SULFATE 325 MG TABLET PO ×2 (08:45→20:36)
[2019-06-08] MEDS: ASCORBIC ACID 500 MG TABLET PO ×2 (08:45→20:36)
[2019-06-08] MEDS: LISINOPRIL 10 MG TABLET PO (08:46)
[2019-06-08] MEDS: ACETAMINOPHEN 325 MG TABLET 975 MG PO ×3 (08:46→20:36)
[2019-06-08] MEDS: ENOXAPARIN 40 MG/0.4 ML SYRINGE SUBCUT (08:46)
[2019-06-08] MEDS: ASPIRIN EC 81 MG TABLET PO (08:46)
[2019-06-08] MEDS: hydroCHLOROthiazide 12.5 MG CAPSULE PO (08:46)
[2019-06-08] MEDS: LACTOBACILLUS ACIDOPHILUS TABLET 1 EACH PO (08:46)
[2019-06-08] MEDS: SODIUM CHLORIDE 0.9% FLUSH 10 ML IV ×2 (10:46→20:37)
--- NOTE | 2019-06-08 10:52 | PM.PNPO.1 ---
Subjective Date Patient Seen: 06/08/19 Time Patient Seen: 10:53 Interval history: Patient is HD#5, POD#2 s/p closed reduction of right hip dislocation. Pain continues to be well controlled. She has been compliant with bed rest. Yesterday while performing catheter care it was noted she had vaginal discharge consistent with yeast infection and was started on Diflucan. Patient is eager to move but otherwise no complaints. No chest pain, shortness of breath. Exam Vital Signs (past 8 hours): - 06/08/19 06:44 06/08/19 07:45 Temperature 97.6 F 98.1 F Pulse Rate 75 71 Respiratory Rate 15 16 Blood Pressure 147/77 H 151/77 H Pulse Oximetry 96 95 Oxygen Delivery Method Room Air Oxygen Flow Rate 0 Narrative Exam Narrative: 73 year old female resting in bed. Alert and oriented in no acute distress. Abductor pillow in place. SILT. Intact motor function in foot/ankle. Palpable pedal pulse. Calves are soft, compressible. Assessment & Plan Post-op Postoperative Procedures Operation Date: 06/04/19 19:30 Actual Procedures Side Surgeon p Closed Reduction of Dislocated Hip Left Michelle Berg MD Operation Date: 06/06/19 16:30 Actual Procedures Side Surgeon p Closed Reduction Dislocated Hip Left Michelle Berg MD Patient is to remain on bed rest with abductor pillow in place due to high risk of recurrent dislocation. Candidiasis likely due to protracted antibiotic therapy, will continue Diflucan for this x2 more doses. Lovenox for DVT prophylaxis. Definitive management pending evaluation by Dr. Baer, likely Monday. Quality VTE Deep Vein Thrombosis/Pulmonary Embolism Present on Admission: No
[2019-06-08 11:09] VITALS: BP 148/75; PULSE 71; RESP 16; TEMP 36.7; O2SAT 98
[2019-06-08 15:57] VITALS: BP 147/83; PULSE 71; RESP 15; TEMP 36.7; O2SAT 99
[2019-06-08] MEDS: FLUCONAZOLE 100 MG TABLET PO (16:55)
[2019-06-08 20:20] VITALS: BP 133/68; PULSE 79; RESP 18; TEMP 36.6; O2SAT 96
[2019-06-08] MEDS: OXYCODONE IR 5 MG TABLET PO (22:25)
[2019-06-09] VITALS (7 sets, daily range): BP systolic 117–157; BP diastolic 52–79; PULSE 72–93; RESP 15–18; TEMP 36.4–37.1; O2SAT 92–98
--- NOTE | 2019-06-09 00:08 | PC.NURSE ---
Shift note: Received pt from evening shift. Pt is AxOx3, able to make needs known, uses call light appropriately. VSS stable on RA, abductor pillow in place, SCDs on and functioning. Assessed mateo area and caraballo, d/t recent yeast infection groin and labia are red but not tender to the touch, caraballo is clean and free of secretions, caraballo is draining clear yellow urine to gravity. Pt denied pain and requests that she be allowed to sleep. Pt is a moderate fall risk d/t recent fall but is on total bed rest, bed alarm on, call light in reach.
[2019-06-09] MEDS: LEVOTHYROXINE 75 MCG TABLET PO (06:25)
[2019-06-09] MEDS: CHOLECALCIFEROL (VITAMIN D3) 1,000 UNIT TABLET 2000 UNIT PO (08:26)
[2019-06-09] MEDS: ACETAMINOPHEN 325 MG TABLET 975 MG PO ×3 (08:26→20:22)
[2019-06-09] MEDS: ASPIRIN EC 81 MG TABLET PO (08:26)
[2019-06-09] MEDS: ASCORBIC ACID 500 MG TABLET PO ×2 (08:27→20:22)
[2019-06-09] MEDS: FERROUS SULFATE 325 MG TABLET PO ×2 (08:27→20:22)
[2019-06-09] MEDS: LISINOPRIL 10 MG TABLET PO (08:27)
[2019-06-09] MEDS: ENOXAPARIN 40 MG/0.4 ML SYRINGE SUBCUT (08:27)
[2019-06-09] MEDS: LACTOBACILLUS ACIDOPHILUS TABLET 1 EACH PO (08:28)
[2019-06-09] MEDS: SODIUM CHLORIDE 0.9% FLUSH 10 ML IV ×2 (08:28→21:39)
[2019-06-09] MEDS: hydroCHLOROthiazide 12.5 MG CAPSULE PO (08:28)
--- NOTE | 2019-06-09 09:26 | CM.DPC ---
DCP: continued: spoke with ortho PA Bhavna yesterday and she confirmed plan for pt to remain in hospital setting for management of her easily dislocating hip and she will be seen for further treatment options by Dr. Karri Baer when she returns: expected to be here Sunday 06/10. [facility] Ana Luisa is updated. Will check in with pt to resure her that the facility will have a bed for her when she returns. Flores remains aware of plan.
--- NOTE | 2019-06-09 11:42 | PM.PN.1 ---
Exam Vital Signs (past 8 hours): - 06/09/19 06:36 06/09/19 07:50 Temperature 98.0 F 98.8 F Pulse Rate 74 74 Respiratory Rate 15 16 Blood Pressure 157/73 H 154/70 H Pulse Oximetry 92 95 Oxygen Delivery Method Room Air Oxygen Flow Rate 0 Assessment & Plan Assessment & Plan narrative: Patient is admitted after surgery. Patient has been stable and progressing with physical therapy. Patient is neurovascularly intact on exam. Patient has no signs or symptoms of DVT. Patient's dressing is clean dry and intact. Continue bedrest and wait for Dr. Baer's assessment tomorrow. Patient had significant concerns regarding bowel movement and the instruction for no twisting in bed. I discussed with nursing staff, will place on abduction pillow and turn to place bed miller to allow bowel movement. Quality VTE Deep Vein Thrombosis/Pulmonary Embolism Present on Admission: No
--- NOTE | 2019-06-09 14:04 | PC.NURSE ---
1400 resting min bed. Pt did have a very sml amt BM, bed linens were soaked with urine today, reassessed the caraballo, line now running clear urine, no leak. All linens changed as well as abd pillow. Pt skin on back/buttocks is clean and pink, w/o signs of breakdown.
--- NOTE | 2019-06-09 15:01 | CM.DPC ---
Checked in with pt as planned and assured her [facility] was keeping a bed for her. She says she is told that Dr. Baer will see her tomorrow and is hopeful for same. She says knows the hospital is where she needs to be know and grateful for assist of staff. P: remains:return to [facility] when stable for same. [facility] team is following, anticipate no difficulties obtaining the snf authorization but they are unable to give this until d/c is 24/48 hours away. Ana Luisa/[facility] was updated re POC today. PASRR: will not be needed unless changes have occurred during this hospitalization that are PASRR relevant.
[2019-06-09] MEDS: FLUCONAZOLE 100 MG TABLET PO (15:21)
--- NOTE | 2019-06-09 21:47 | PC.NURSE ---
Per day shift RN, per Dr. Moyer, okay to turn patient to non affected side to use a fracture miller if needed. Pt said she wants to wait for a BSC to have a BM. John intact this shift and draining clear yellow. Pt states her pain is better tonight.
[2019-06-09] MEDS: OXYCODONE IR 5 MG TABLET PO (22:37)
[2019-06-10] MEDS: LEVOTHYROXINE 75 MCG TABLET PO (06:36)
--- NOTE | 2019-06-10 06:39 | PC.NURSE ---
Denies pain all shift, declined mateo & cath care this morning. States we will do it later, I just want to sleep. Will monitor.
[2019-06-10 06:56] VITALS: BP 133/65; PULSE 74; RESP 16; TEMP 36.9; O2SAT 98
[2019-06-10 07:00] VITALS: BP 116/73; PULSE 74; RESP 16; TEMP 36.6; O2SAT 96
--- NOTE | 2019-06-10 07:50 | PC.NURSE ---
Addendum entered by Xena Oreilly R.N. 06/10/19 15:43: Unable to sufficiently clarify the orders for the brace over the phone (w/ Dr Baer via [employer]). Note faxed to Dr Baer in surgery asking her to come up to look at the brace we have and make sure it's set up to her specifications. Patient aware that we are waiting on the correct brace and understands she cannot get OOB until then. Jennifer shift RN aware that IF the brace gets sorted out THEN we need order to d/c bedrest and an order for PT/OT to mobilize patient to BSC with brace in place. Addendum entered by Xena Oreilly R.N. 06/10/19 14:15: Mobilization: Dr Baer ordered and abduction brace and told patient she could get up with PT to BSC once the brace was fitted. PT has a question about the way Dr Baer wrote the order, so this ticket writer just faxed a note down to surgery asking for clarification. Mentioned in the note also was the fact that PT/OT said that they need an official order for therapy and an order to d/c bedrest. Will hope to hear back from Dr Baer shortly. Patient aware and agreeable. Addendum entered by Xena Oreilly R.N. 06/10/19 12:22: Dr Baer on the floor, confirmed that she wanted patient typed and crossed with units available, but no transfusion today. This ticket writer called and let the blood bank know. General diet ordered for patient per verbal order from Dr Baer, per MD if we do surgery it won't be until tomorrow. Dr Baer plans to go in and talk with patient shortly. Addendum entered by Xena Oreilly R.N. 06/10/19 11:20: Note faxed down to surgery for Dr Baer. This ticket writer hoping to clarify order for PRBC's (whether she wanted them given, or just on stand-by). Mentioned in the note that patient really wants to talk to Dr Baer NATY about POC going forward. Awaiting call back from Dr Baer, holding off on transfusion until clarification is received. Original Note: Shift summary: New NPO order noted. RG Macedo states Dr Baer will be up to see patient today, likely between scheduled surgeries. This ticket writer took water away and replaced with oral swabs. Discussed NPO status with patient and she verbalized understanding. Call light in reach, abduction pillow and SCD's in place, bed alarm on.
[2019-06-10] MEDS: SODIUM CHLORIDE 0.9% FLUSH 10 ML IV ×2 (08:41→21:55)
[2019-06-10 09:10] LABS: Add Manual Diff / Slide Review NO; Basophils Absolute Auto 100 /uL (0-100); Basophils Percent Auto 1.3 % (0-2); Eosinophils Absolute Auto 400 /uL (0-450); Eosinophils Percent Auto 6.9 % (2-4); Hematocrit 27.9 % (36-46); Hemoglobin 9.2 g/dL (12.0-16.0); Lymphocytes Absolute Auto 1800 /uL (1100-4500); Lymphocytes Percent Auto 31.2 % (25-40); Mean Corpuscular Hemoglobin 28.8 PG (26-34); Mean Corpuscular Volume 87.1 fL (80-100); Monocytes Absolute Auto 500 /uL (0-900); Monocytes Percent Auto 8.4 % (3-14); Neutrophils Absolute Auto 3000 /uL (1500-7000); Neutrophils Percent Auto 52.2 % (50-75); Platelet Count 509 X10^3/uL (150-400); Red Blood Cell Count 3.21 X10^6/uL (4.0-5.2); Red Cell Distribution Width 16.9 % (11.6-14.8); White Blood Cell Count 5.7 X10^3/uL (4.5-11.0)
[2019-06-10 09:16] LABS: C-Reactive Protein Quant 1.9 mg/dL (<1.0)
[2019-06-10 12:00] VITALS: BP 125/66; PULSE 73; RESP 17; TEMP 36.8; O2SAT 99
[2019-06-10 12:15] LABS: Erythrocyte Sedimentation Rate 70 MM/HR (0-20)
[2019-06-10] MEDS: ACETAMINOPHEN 325 MG TABLET 975 MG PO ×2 (15:05→21:54)
[2019-06-10 16:20] VITALS: BP 124/73; PULSE 71; RESP 18; TEMP 36.5; O2SAT 96
[2019-06-10 19:11] VITALS: BP 133/67; PULSE 80; RESP 18; TEMP 36.6; O2SAT 95
[2019-06-10] MEDS: FERROUS SULFATE 325 MG TABLET PO (21:54)
[2019-06-10] MEDS: ASCORBIC ACID 500 MG TABLET PO (21:54)
[2019-06-10] MEDS: OXYCODONE IR 5 MG TABLET PO (22:01)
[2019-06-11] VITALS (9 sets, daily range): BP systolic 112–136; BP diastolic 58–79; PULSE 72–87; RESP 15–20; TEMP 36.3–36.8; O2SAT 90–99
--- NOTE | 2019-06-11 00:34 | PC.NURSE ---
Patient currently asleep but reportedly is oriented. Breath sounds CTA with RA sat of 97%. HRR. BT present and abdomen is soft. Indwelling catheter is patent. Aquacel dressing to left hip is CDI. Non pitting edema in left upper leg/hip. Feet warm to touch with good PP and cap refill. Has abduction pillow between legs and is wearing bilateral calf SCD's. Evening RN stated patient is not to be turned due to unstable hip so bed tilted slightly to right to change pressure. Fall risk score is high and bed alarm is activated. FLACC score is 0.
[2019-06-11] MEDS: LEVOTHYROXINE 75 MCG TABLET PO (06:02)
--- NOTE | 2019-06-11 08:43 | DI.CT.S_ITS ---
PROCEDURE: CT LE LT W CON INDICATIONS: Anteversion of left hip components TECHNIQUE: Noncontrast 3 mm axial sections acquired through the bony pelvis. Additional 3 mm axial sections acquired through the symptomatic hip joint, with coronal and sagittal reformats. COMPARISON: [facility], CR, XR PELVIS 1-2V, 06/04/2019, 11:43. [facility], CT, CT LE LT WO CON, 03/09/2019, 11:53. FINDINGS: Image quality: Excellent. Bones: Patient is status post left total hip arthroplasty. There is interval reduction of previously noted superior posterior dislocation of the left hip prosthesis. There is no dislocation seen on the current study. No gross hardware failure. Healing comminuted proximal femoral shaft fracture dislocati level of intercondylar region is seen. Angle between low axis of left femoral neck and line parallel to posterior femoral condyles measures approximately 22?. No other fracture or dislocation. No suspicious bony lesions. Osteoporotic changes are seen in left acromioclavicular joint. Soft tissues: There is significant soft tissue swelling and edema around the left hip prosthesis and in left hemipelvis. There is suggestion of small to moderate left hip joint effusion. No peritoneal free fluid or free air is seen. Lopez catheter is seen in a partially distended urinary bladder. IMPRESSION: 1. Interval reduction of previously noted left hip prosthesis dislocation. No new fracture or dislocation is seen on the current study. There is approximately 22? anteversion as above. 2. Soft tissue swelling and edema surrounding left hip prosthesis with suggestion of small to moderate left hip joint effusion. 3. Left sacroiliac joint osteoarthritis. Healing comminuted proximal left femoral shaft fracture. No new fracture or dislocation. Dictated by: Dragan Maria M.D. on 06/11/2019 at 10:27 Approved by: Dragan Maria M.D. on 06/11/2019 at 10:55
[2019-06-11] MEDS: ACETAMINOPHEN 325 MG TABLET 975 MG PO ×3 (09:05→21:14)
[2019-06-11] MEDS: ASCORBIC ACID 500 MG TABLET PO ×2 (09:06→21:13)
[2019-06-11] MEDS: LACTOBACILLUS ACIDOPHILUS TABLET 1 EACH PO (09:06)
[2019-06-11] MEDS: CHOLECALCIFEROL (VITAMIN D3) 1,000 UNIT TABLET 2000 UNIT PO (09:06)
[2019-06-11] MEDS: LISINOPRIL 10 MG TABLET PO (09:06)
[2019-06-11] MEDS: SODIUM CHLORIDE 0.9% FLUSH 10 ML IV ×2 (09:07→21:14)
[2019-06-11] MEDS: hydroCHLOROthiazide 12.5 MG CAPSULE PO (09:07)
[2019-06-11] MEDS: ENOXAPARIN 40 MG/0.4 ML SYRINGE SUBCUT (09:07)
--- NOTE | 2019-06-11 09:07 | PT-IP ANOTE ---
Brace Update: The left hip brace that was assessed yesterday for this patient was determined by Dr Baer to be inadequate. This was an off the shelf brace carried by the hospital from [facility] (X-ACT ROM hip). Called [facility] at [facility] this AM and scheduled to have their Environmental Manager, Sudheer, come out to fit a hip brace. The Environmental Manager is scheduled to be here between 12 and 1 today. It is anticipated that the pt will have a brace to use after this scheduled appointment. The script for the hip brace states Left hip abduction Brace, 30 or 45 (preferred Abduction) ROM 0-60 flexion.
[2019-06-11] MEDS: ASPIRIN EC 81 MG TABLET PO (09:09)
[2019-06-11] MEDS: FERROUS SULFATE 325 MG TABLET PO ×2 (09:09→21:14)
--- NOTE | 2019-06-11 14:11 | PT-IP ANOTE ---
Barrel RepairerSudheer, from [facility] fitted and applied left hip abduction brace. Pt currently in bed with brace in place.
--- NOTE | 2019-06-11 14:37 | PC.NURSE ---
Addendum entered by Xena Oreilly R.N. 06/11/19 15:54: Dr Baer came up and gave the ok for PT to transfer/mobilize patient. Jennifer white RN Marylu in the room and heard the same conversation. Dr Baer said she was going to go change mobility orders, but has not entered them as of this time. Message left at outpatient PT, asked them to let PT Tiera know patient is ready to get to commode when she can come up. Per earlier conversation PT Tiera was planning to see patient last this afternoon, so it's likely she will come up either way. Patient resting in bed, informed of the same and was agreeable. Original Note: Immobilizer brace: Brace has been fitted to patient. Spoke to RN in OR w/ Dr Baer and asked if Dr Baer wants to see the brace before PT/OT attempts to mobilize. PT Tiera aware of the same. It sounds like Dr Baer should be done in OR approx. 30 minutes and will be up to check patient/brace after that. Will inform patient of the same.
--- NOTE | 2019-06-11 15:19 | CM.DPC ---
DCP Cont: Discussed patient during team rounds, and with physical therapy dept. Patient is to be fitted with a special brace for her hip. She will be evaluated with P.T, after consulting with shahzad Irizarry, who will see how brace fits. Patient could potentially discharge with this brace if able to mobilize safely, otherwise, she will have surgery. If patient does discharge with brace, instead of surgery, she could potentially have surgery in a few weeks. P: DCP to continue following closely. Will consult with physical therapy team regarding discharge. Plan is for patient to return back to [facility]. Monica Rob RN/Map [employer]
--- NOTE | 2019-06-11 17:33 | PT.IPRE ---
Current Diagnoses Dislocation of internal left hip prosthesis, initial encounter (06/06/19) Surgery Performed Operation Date: 06/04/19 19:30 Actual Procedures p Closed Reduction of Dislocated Hip(Left) - Michelle Berg MD Operation Date: 06/06/19 16:30 Actual Procedures p Closed Reduction Dislocated Hip(Left) - Michelle Berg MD Surgical History (Last Reviewed 06/04/19 @ 15:01 by Pina Glass DO) Status post hip surgery (Acute 04/02/19) Status post hip surgery (Acute ~02/2019) History of myomectomy (Chronic) History of thyroidectomy (Inactive) Medical History (Last Reviewed 06/04/19 @ 15:01 by Pina Glass DO) History of cervical cancer (Acute) RLS (restless legs syndrome) (Acute) Hypertension (Chronic) Hypothyroid (Chronic) Thyroid cancer (Chronic) Physical Therapy Inpatient Evaluation/Re-Eval M1 PT/OT-IP Prior Functional Status Start: 06/05/19 12:28 Freq: NEEDED Status: Active Protocol: Document 06/11/19 17:14 VINNIE (Rec: 06/11/19 17:32 VINNIE [id number]) Medical Review Prior Functional Status Medical History Reviewed Yes Diet/Fluid Consistency Regular Communication WNL Mobility and Gait Prior to hip fx 03/08/19, pt was independent with all mobilities and ambulation without AD. 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 Prior Functional Level (Other details) 03/08/19 hip fx s/p ORIF; pt d/ c'd to [facility], developed infection with hardware failure and underwent surgery and antiobiotic spacer placement 04/02/19. Pt dc'd to [facility]. Pt had complex L GIA by Dr Baer 05/16/19 and was d/c'd to [facility] again. Pt admitted with L GIA dislocation 3 days prior, no s/p closed reduction 06/04/19. Social History Household Members none Living Arrangements House Number of Floors (Floors) Two Floors Number of Stairs To Enter/Railing? Pt stays on main level of the house. 4 steps with L rail ascending to enter. Pt plans to have high threshold into kitchen ramped. 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 Pt has 2 daughters locally, but both work multimedia services coordinator. She plans to hire private caregiers to assist with some cargo station worker. M2 PT-IP Current Condition Start: 06/05/19 12:28 Freq: NEEDED Status: Active Protocol: Document 06/11/19 17:14 EA (Rec: 06/11/19 17:32 EA [id number]) Physical Therapy Current Condition Precautions Posterior Hip Precautions No Hip Flexion > 90 degrees No Hip Internal Rotation No Hip Adduction Brace Hip brace that limits hip ADD/ flexion to 90deg, IR. Weight Bearing Status Weight Bearing Status Touch Down Weight Bearing Allowed Weight Bearing Amount (enter % until update order is in place or #) (%) M3 PT-IP Subjective Start: 06/05/19 12:28 Freq: NEEDED Status: Active Protocol: Document 06/11/19 17:14 EA (Rec: 06/11/19 17:32 EA [id number]) Subjective Physical Therapy Visit Type Type Re-Evaluation Visit Start Time 16:45 Visit Stop Time 17:15 Total Visit Minutes 30 Physical Therapy Visit Comments Patient Comments I really want to use the commode ; states unable to do bowel action in the last 7 days due to bed rest order. Patient Goals Patient would like to at least mobilize more than 50 ft with AD and with least assistance. Therapy Pain Assessment Pain When Pain Assessed During Mobility Pain Present Pain Present Pain Reported Location Neck Intensity 2 Description Acute M4 PT-IP Mobility and Gait Start: 06/05/19 12:28 Freq: NEEDED Status: Active Protocol: Document 06/11/19 17:14 EA (Rec: 06/11/19 17:32 EA [id number]) PT-Bed Mobility Assessment Supine to Sit Supine to Sit Moderate Assistance 2 Person Assistance Sit to Supine Sit to Supine Moderate Assistance 2 Person Assistance Scooting Scooting to Edge of Bed Minimal Assistance PT-Transfer Assessment Sit to and From Stand Sit to and from Stand Moderate Assistance 2 Person Assistance Equipment Transfer Assistive Device Gait Belt Front Wheeled Walker Orthotic/Prosthetic Devices or Brace: Yes Transfers Transfer Destination Bed Bedside Commode Transfer Technique stepping transfer Transfer Ability Level of Assist 2 Person Assistance Comments Mobility Comments Toe touch weight bearing; use arm for support, Gait Assessment Gait Gait Assistance Required: 2 Person Assist Distance (Feet) 5 Able to Maintain Weight Bearing Status Yes During Gait Assistive Devices Assistive Device Gait Belt Front Wheeled Walker Gait Deviations General Gait Pattern Step-to Gait Factors Limiting Gait Function Factors Limiting Gait Function Decreased Activity Tolerance Decreased Strength Limited Range of Motion Pain Comments Gait Comments Requires constant cues during stepping transfers to avoid full weight bearing. M5 PT-IP Objective Assessments Start: 06/05/19 12:28 Freq: NEEDED Status: Active Protocol: Document 06/11/19 17:14 EA (Rec: 06/11/19 17:32 EA [id number]) Orientation Orientation/Cognition Level of Alertness Alert Orientation Name Age Language Function Ability No Deficits Noted Safety Awareness Understands Safety Issues Memory Description No Deficits Noted Gross Range of Motion Upper Extremity ROM Assessment Within Functional Limits Lower Extremity ROM Assessment Left Impaired Impairments hip N/A at this time due to hip brace Strength Upper Extremity Strength Assessment Within Functional Limits Lower Extremity Strength Assessment Left Impaired Hip 3+/ 5 (limited permited range only) M6 PT-IP Treatment Start: 06/05/19 12:28 Freq: NEEDED Status: Active Protocol: Document 06/11/19 17:14 EA (Rec: 06/11/19 17:32 EA [id number]) Physical Therapy Treatment Exercises Exercises Ankle Pumps Gluteal Sets Quad Sets Heel Slides Education Education Provided Precautions Weight Bearing Status Post-Op Packet Safety M7 PT-IP Assessment and Plan Start: 06/05/19 12:28 Freq: NEEDED Status: Active Protocol: Document 06/11/19 17:14 EA (Rec: 06/11/19 17:32 EA [id number]) PT Summary Assessment and Plan Potential Rehabilitation Potential Good Status of Condition at Evaluation Evolving Summary Impairments Pain ROM Strength Balance Bed Mobility Transfers Gait Activity Tolerance Progress Towards Goals Progressing Toward Goals Assessment Summary Patient demonstrated difficulty in all transfers and mobility due to de-conditioning effects of bed rest. Brace was properly in placed during transfers and mobility. She demonstrates good safety awareness and agreed to comply with it. Toe touch WB was initiated today until further order from M.D. She requires two person assist at this time for safety. Patient would continue to benefit with skilled PT to reach highest functional mobility prior to discharge in SNF. Goals Bed Mobility Goal Standby Assistance Transfer Goal Standby Assistance Front Wheeled Walker Gait Goal Standby Assistance Front Wheel Walker Gait Distance 50 Days to Meet Goals 3 Frequency of Treatment Frequency Of Treatment Twice a Day Treatment Plan Physical Therapy Treatment Plan Bed Mobility Training Transfer Training Gait Training Therapeutic Exercise Balance Retraining Post Op Education Discharge Planning Recommendations To Nursing Amount of Assist Needed 2 Person Assist Discharge Recommendations PT Discharge Recommendations SNF Rehab
--- NOTE | 2019-06-11 18:23 | PC.NURSE ---
Addendum entered by Elvia Armijo R.N. 06/11/19 22:30: Pt had relatively uneventful evening. Repositioned frequently. Brace remains in place. Denies discomfort at this time. Call light w/in reach, bed alarm on for pt safety. Continue w/plan of care. Original Note: Pt assistist w/ staff & PT to BSC w/o incidence. Denies discomfort at this time. Lung clear, diminished at bases, SpO2 96% RA RODRIGO PICC intact/patent. Hip brace in place. Pt may toe touch Call light w/in reach, bed alarm on for pt safety.
--- NOTE | 2019-06-11 18:51 | PM.PNPO.1 ---
Subjective Date Patient Seen: 06/11/19 Time Patient Seen: 18:51 Interval history: Patient is HD#8, POD#5 s/p closed reduction of recurrent right hip dislocation. Pain continues to be well controlled. She was fitted with hip abduction brace today which she is tolerating well. Exam Vital Signs (past 8 hours): - 06/11/19 14:28 06/11/19 16:00 06/11/19 17:00 Temperature 98.1 F 98.3 F Pulse Rate 77 73 87 Respiratory Rate 17 20 Blood Pressure 123/58 L 116/61 136/79 Pulse Oximetry 96 99 Oxygen Delivery Method Room Air Oxygen Flow Rate 0 Narrative Exam Narrative: 73 year old female resting in bed. Alert and oriented in no acute distress. Brace in place. Patient able to flex/extend the ankle. Soft, compressible calves. Palpable pedal pulse. Objective Labs Result Diagrams: 06/10/19 08:28 Assessment & Plan Post-op Postoperative Procedures Operation Date: 06/04/19 19:30 Actual Procedures Side Surgeon p Closed Reduction of Dislocated Hip Left Michelle Berg MD Operation Date: 06/06/19 16:30 Actual Procedures Side Surgeon p Closed Reduction Dislocated Hip Left Michelle Berg MD Patient was fitted with abduction brace. She may weight bear as tolerated while wearing the brace. Restart physical therapy. Plan is to discharge to home in the next few days with improved mobility if safe for the home environment. Quality VTE Deep Vein Thrombosis/Pulmonary Embolism Present on Admission: No
[2019-06-11] MEDS: OXYCODONE IR 5 MG TABLET PO (23:00)
--- NOTE | 2019-06-12 01:36 | PC.NURSE ---
Patient is alert and oriented. Breath sounds CTA with RA sat of 94%. HRR. Denies nausea. BT present and reports she had a good BM yesterday. Still with indwelling catheter which is patent; urine is clear, dark yellow. Now wearing brace and is needing to be repositioned q2h. At shift change was complaining of rib/back pain due to brace and was medicated with Oxycodone and now states she is comfortable. Aquacel dressing to left hip is CDI. Trace edema in left LE. CMS is intact. SCD's applied at shift changed. Fall risk score is high and bed alarm is activated.
[2019-06-12 03:53] VITALS: BP 110/57; PULSE 73; RESP 15; TEMP 36.4; O2SAT 96
[2019-06-12] MEDS: LEVOTHYROXINE 75 MCG TABLET PO (05:45)
--- NOTE | 2019-06-12 07:59 | PM.PN.1 ---
Subjective Subjective Date Patient Seen: 06/12/19 Time Patient Seen: 08:01 Interval history: Aveyr notes that her brace is fitting well. She was up with physical therapy. She was able to have a bowel movement. She would really like to go home but wants to make sure that she is independent enough that she can go home. They have saved a bed for her at the senior living. Exam Vital Signs (past 8 hours): - 06/12/19 03:53 Temperature 97.6 F Pulse Rate 73 Respiratory Rate 15 Blood Pressure 110/57 L Pulse Oximetry 96 Oxygen Delivery Method Room Air Oxygen Flow Rate 0 Narrative Exam Narrative: Braces in place, her left leg length looks acceptable she is externally rotated but in a reasonable position. She does have minimal shortening of the left leg which was noted from preoperatively. Calfs are soft bilaterally. Dressing is intact and benign. Objective Labs Result Diagrams: 06/10/19 08:28 Assessment & Plan Assessment & Plan narrative: Avery and I have had an extensive discussion over the last 3 days. She has had 2 episodes of instability and understands that she is at continued risk for instability. She has been fitted with an abduction brace on and has been mobilized with therapy. I think she needs to continue to mobilize with physical therapy here and likely can be discharged to rehab tomorrow. We discussed the possibility of revision left hip surgery over the last few days. She would strongly prefer to continue with conservative care and bracing as she has had multiple operations over the last few months. From a medical standpoint I think it is to her advantage if she can be maintained in a brace at least over the next couple of months that she further rehab even if she ultimately requires revision hip surgery for instability. Her antibiotics have been discontinued, her incision is benign, and her inflammatory parameters have improved. The overall plan is for discharge to rehab likely tomorrow and then working on teaching her additional skills of that she can be discharged to home likely later in the month. Quality VTE Deep Vein Thrombosis/Pulmonary Embolism Present on Admission: No
[2019-06-12 08:00] VITALS: BP 114/56; PULSE 74; RESP 16; TEMP 36.4; O2SAT 97
[2019-06-12 08:05] VITALS: BP 114/56
[2019-06-12] MEDS: ASPIRIN EC 81 MG TABLET PO (08:05)
[2019-06-12] MEDS: FERROUS SULFATE 325 MG TABLET PO ×2 (08:05→20:15)
[2019-06-12] MEDS: ASCORBIC ACID 500 MG TABLET PO ×2 (08:05→20:15)
[2019-06-12] MEDS: LISINOPRIL 10 MG TABLET PO (08:05)
[2019-06-12] MEDS: CHOLECALCIFEROL (VITAMIN D3) 1,000 UNIT TABLET 2000 UNIT PO (08:05)
[2019-06-12] MEDS: hydroCHLOROthiazide 12.5 MG CAPSULE PO (08:05)
[2019-06-12] MEDS: LACTOBACILLUS ACIDOPHILUS TABLET 1 EACH PO (08:05)
[2019-06-12] MEDS: ACETAMINOPHEN 325 MG TABLET 975 MG PO ×3 (08:08→20:15)
[2019-06-12] MEDS: SODIUM CHLORIDE 0.9% FLUSH 10 ML IV (08:08)
[2019-06-12] MEDS: ENOXAPARIN 40 MG/0.4 ML SYRINGE SUBCUT (08:08)
--- NOTE | 2019-06-12 08:56 | PM.PNPO.1 ---
Subjective Subjective Date Patient Seen: 06/12/19 Time Patient Seen: 08:56 Interval history: Hospital day 9, postop days 8 and 5 with left total hip arthroplasty dislocation and reduction. Patient had left hip abductor brace placed yesterday. She may be weight-bearing as tolerated in the brace. She is to wear brace continuously except for bathing. Her hip pain has improved. Patient was seen by Dr. Baer this morning for rounds. Exam Vital Signs (past 8 hours): - 06/12/19 03:53 06/12/19 08:00 06/12/19 08:05 Temperature 97.6 F 97.5 F L Pulse Rate 73 74 Respiratory Rate 15 16 Blood Pressure 110/57 L 114/56 L 114/56 L Pulse Oximetry 96 97 Oxygen Delivery Method Room Air Oxygen Flow Rate 0 Narrative Exam Narrative: Alert, oriented no acute distress resting in bed. Legs. Aquacel dressing to lateral left hip. Abductor brace in place. Objective Labs Result Diagrams: 06/10/19 08:28 Assessment & Plan Post-op Postoperative Procedures: Procedures Operation Date: 06/04/19 19:30 Actual Procedures Side Surgeon p Closed Reduction of Dislocated Hip Left Michelle Berg MD Operation Date: 06/06/19 16:30 Actual Procedures Side Surgeon p Closed Reduction Dislocated Hip Left Michelle Berg MD Plan: Patient will work with PT today with her brace. Will DC PICC line, Lopez catheter and Aquacel dressing. Anticipate discharge back to [facility] tomorrow if she is stable. Plan is for patient to use the brace regularly for the next few weeks. She will need a follow-up visit with Dr. Baer in 1-2 weeks. Quality VTE Deep Vein Thrombosis/Pulmonary Embolism Present on Admission: No
--- NOTE | 2019-06-12 11:00 | PT.IPTN ---
Current Diagnoses Dislocation of internal left hip prosthesis, initial encounter (06/06/19) Surgery Performed Operation Date: 06/04/19 19:30 Actual Procedures p Closed Reduction of Dislocated Hip(Left) - Michelle Berg MD Operation Date: 06/06/19 16:30 Actual Procedures p Closed Reduction Dislocated Hip(Left) - Michelle Berg MD Physical Therapy Treatment Note M2 PT-IP Current Condition Start: 06/05/19 12:28 Freq: NEEDED Status: Active Protocol: Document 06/11/19 17:14 EA (Rec: 06/11/19 17:32 EA [id number]) Physical Therapy Current Condition Precautions Posterior Hip Precautions No Hip Flexion > 90 degrees,No Hip Internal Rotation,No Hip Adduction Brace Hip brace that limits hip ADD/ flexion to 90deg, IR. Weight Bearing Status Weight Bearing Status Touch Down Weight Bearing Allowed Weight Bearing Amount (enter % until update order is in place or #) (%) M3 PT-IP Subjective Start: 06/05/19 12:28 Freq: NEEDED Status: Active Protocol: Document 06/12/19 11:20 GGD (Rec: 06/12/19 11:28 GGD [id number]) Subjective Physical Therapy Visit Type Type Treatment Note Visit Start Time 10:36 Visit Stop Time 11:02 Total Visit Minutes 23 Physical Therapy Visit Comments Patient Comments Pt states she needs to use the BSC. Therapy Pain Assessment Pain When Pain Assessed At Rest Pain Present Pain Present Denied Pain M4 PT-IP Mobility and Gait Start: 06/05/19 12:28 Freq: NEEDED Status: Active Protocol: Document 06/12/19 11:20 GGTamara (Rec: 06/12/19 11:28 GGD [id number]) PT-Bed Mobility Assessment Supine to Sit Supine to Sit Moderate Assistance,2 Person Assistance Scooting Scooting to Edge of Bed Minimal Assistance PT-Transfer Assessment Sit to and From Stand Sit to and from Stand Moderate Assistance,1 Person Assistance,Use of Upper Extremities Equipment Transfer Assistive Device Gait Belt,Front Wheeled Walker Orthotic/Prosthetic Devices or Brace: Yes Transfers Transfer Destination Chair,Bedside Commode Transfer Technique Stand Step Pivot Transfer Ability Level of Assist 2 Person Assistance M5 PT-IP Objective Assessments Start: 06/05/19 12:28 Freq: NEEDED Status: Active Protocol: Document 06/11/19 17:14 EA (Rec: 08/27/19 17:32 EA [id number]) Orientation Orientation/Cognition Level of Alertness Alert Orientation Name,Age Language Function Ability No Deficits Noted Safety Awareness Understands Safety Issues Memory Description No Deficits Noted Gross Range of Motion Upper Extremity ROM Assessment Within Functional Limits Lower Extremity ROM Assessment Left Impaired Impairments hip N/A at this time due to hip brace Strength Upper Extremity Strength Assessment Within Functional Limits Lower Extremity Strength Assessment Left Impaired Hip 3+/ 5 (limited permited range only) M6 PT-IP Treatment Start: 06/05/19 12:28 Freq: NEEDED Status: Active Protocol: Document 06/12/19 11:20 GGD (Rec: 06/12/19 11:28 GGD [id number]) Physical Therapy Treatment Exercises Exercises Ankle Pumps,Gluteal Sets,Quad Sets Education Education Provided Precautions,Weight Bearing Status M7 PT-IP Assessment and Plan Start: 06/05/19 12:28 Freq: NEEDED Status: Active Protocol: Document 06/12/19 11:20 GGD (Rec: 06/12/19 11:28 GGD [id number]) PT Summary Assessment and Plan Summary Assessment Summary Pt needing mod a with mobility . She needed cues for TTWB with transfers. Pt had no c/o pain with treatment. Frequency of Treatment Frequency Of Treatment Twice a Day Treatment Plan Physical Therapy Treatment Plan Bed Mobility Training,Transfer Training,Gait Training, Therapeutic Exercise,Balance Retraining,Post Op Education, Discharge Planning Recommendations To Nursing Amount of Assist Needed 2 Person Assist Discharge Recommendations PT Discharge Recommendations SNF Rehab
--- NOTE | 2019-06-12 11:06 | CM.DPC ---
Addendum entered by Aure Gomez LPN 06/13/19 07:54: OT/PT notes now available. Faxed now to [facility]. Will follow up when they open with a call. dc likely today. Original Note: DCP: continued: Case received again, EMR for last 2 days reviewed. Discussed in Team Rounds with ortho RG العراقي. Pt now has the new brace, confirmed by PT Chucky that this was placed yesterday afternoon and pt will work with PT/OT today with plan for d/c to [facility] tomorrow. IV antibiotic treatment is completed and PICC will be removed. Discussion with pt and Dr. Baer re possible surgery option was held with pt wishing to try conservative treatment first. Have now updated Елена/[facility] and [facility]: today at ex [phone]...tomorrow at usual ext [phone]. Fabiana says she anticipates no problem with a new snf auth but that the Flores process must be followed and she requires PT/OT notes for today. Have faxed the orthopedic progress notes of today and last evenings post brace PT re-eval now. Will followup with the OT PT notes when these are available. OT has not been reordered. An order is now obtained and Bri will see pt today. Will followup with pt prn. She remains aware that [facility] will have a bed for her. Fabiana/Mark agrees that ambulance transport is appropriate for this pt with extensive dislocation history.
--- NOTE | 2019-06-12 11:11 | PC.NURSE ---
Removed caraballo and changed dressing to left hip. Applied Allevyn Gentle Border dressing to lateral lower dressing blister and Coversite to healing left hip incision. Pt now sitting in chair and denies needs at this time. Pt agrees to call for assistance as needed and to not get up without help.
--- NOTE | 2019-06-12 12:10 | PT.IPTN ---
Current Diagnoses Dislocation of internal left hip prosthesis, initial encounter (06/06/19) Surgery Performed Operation Date: 06/04/19 19:30 Actual Procedures p Closed Reduction of Dislocated Hip(Left) - Michelle Breg MD Operation Date: 06/06/19 16:30 Actual Procedures p Closed Reduction Dislocated Hip(Left) - Michelle Berg MD Physical Therapy Treatment Note M2 PT-IP Current Condition Start: 06/05/19 12:28 Freq: NEEDED Status: Active Protocol: Document 06/11/19 17:14 EA (Rec: 06/11/19 17:32 EA [id number]) Physical Therapy Current Condition Precautions Posterior Hip Precautions No Hip Flexion > 90 degrees,No Hip Internal Rotation,No Hip Adduction Brace Hip brace that limits hip ADD/ flexion to 90deg, IR. Weight Bearing Status Weight Bearing Status Touch Down Weight Bearing Allowed Weight Bearing Amount (enter % until update order is in place or #) (%) M3 PT-IP Subjective Start: 06/05/19 12:28 Freq: NEEDED Status: Active Protocol: Document 06/12/19 12:10 GGD (Rec: 06/12/19 15:40 GGD [id number]) Subjective Physical Therapy Visit Type Type Treatment Note Visit Start Time 11:55 Visit Stop Time 12:10 Total Visit Minutes 15 Physical Therapy Visit Comments Patient Comments Pt states that she would like to go back to bed. Therapy Pain Assessment Pain When Pain Assessed At Rest Pain Present Pain Present Denied Pain M4 PT-IP Mobility and Gait Start: 06/05/19 12:28 Freq: NEEDED Status: Active Protocol: Document 06/12/19 12:10 GGD (Rec: 06/12/19 15:40 GGD [id number]) PT-Bed Mobility Assessment Sit to Supine Sit to Supine Maximum Assistance,2 Person Assistance Scooting Scooting to Edge of Bed Minimal Assistance PT-Transfer Assessment Sit to and From Stand Sit to and from Stand Moderate Assistance,2 Person Assistance,Use of Upper Extremities Equipment Transfer Assistive Device Gait Belt,Front Wheeled Walker Orthotic/Prosthetic Devices or Brace: Yes Transfers Transfer Destination Bed Transfer Technique Stand Step Pivot Transfer Ability Level of Assist 2 Person Assistance M5 PT-IP Objective Assessments Start: 06/05/19 12:28 Freq: NEEDED Status: Active Protocol: Document 06/11/19 17:14 EA (Rec: 06/11/19 17:32 EA [id number]) Orientation Orientation/Cognition Level of Alertness Alert Orientation Name,Age Language Function Ability No Deficits Noted Safety Awareness Understands Safety Issues Memory Description No Deficits Noted Gross Range of Motion Upper Extremity ROM Assessment Within Functional Limits Lower Extremity ROM Assessment Left Impaired Impairments hip N/A at this time due to hip brace Strength Upper Extremity Strength Assessment Within Functional Limits Lower Extremity Strength Assessment Left Impaired Hip 3+/ 5 (limited permited range only) M6 PT-IP Treatment Start: 06/05/19 12:28 Freq: NEEDED Status: Active Protocol: Document 06/12/19 12:10 GGD (Rec: 06/12/19 15:40 GGD [id number]) Physical Therapy Treatment Exercises Exercises Ankle Pumps,Gluteal Sets Education Education Provided Precautions,Weight Bearing Status M7 PT-IP Assessment and Plan Start: 06/05/19 12:28 Freq: NEEDED Status: Active Protocol: Document 06/12/19 12:10 GGD (Rec: 06/12/19 15:40 GGD [id number]) PT Summary Assessment and Plan Summary Assessment Summary Pt needed increase in assist with sit <> stand. She need cues for hip precautions and TTWB. Pt had no C/O pain during treatment. Frequency of Treatment Frequency Of Treatment Twice a Day Treatment Plan Physical Therapy Treatment Plan Bed Mobility Training,Transfer Training,Gait Training, Therapeutic Exercise,Balance Retraining,Post Op Education, Discharge Planning Recommendations To Nursing Amount of Assist Needed 2 Person Assist Discharge Recommendations PT Discharge Recommendations SNF Rehab
[2019-06-12 12:48] VITALS: BP 109/56; PULSE 68; RESP 16; TEMP 36.4; O2SAT 98
[2019-06-12 15:30] VITALS: BP 151/72; PULSE 72; RESP 18; TEMP 36.9; O2SAT 100
--- NOTE | 2019-06-12 16:15 | OT.IP.EVAL ---
Current Diagnoses Dislocation of internal left hip prosthesis, initial encounter (06/06/19) Surgery Performed Operation Date: 06/04/19 19:30 Actual Procedures p Closed Reduction of Dislocated Hip(Left) - Michelle Berg MD Operation Date: 06/06/19 16:30 Actual Procedures p Closed Reduction Dislocated Hip(Left) - Michelle Berg MD Past Medical History (Last Reviewed 06/04/19 @ 15:01 by Pina Glass DO) History of cervical cancer (Acute) Hypertension (Chronic) Hypothyroid (Chronic) RLS (restless legs syndrome) (Acute) Thyroid cancer (Chronic) Surgical History (Last Reviewed 06/04/19 @ 15:01 by Pina Glass DO) History of myomectomy (Chronic) History of thyroidectomy (Inactive) Status post hip surgery (Acute 04/02/19) Status post hip surgery (Acute ~02/2019) Occupational Therapy Inpatient Evaluation/Re-Eval M1 PT/OT-IP Prior Functional Status Start: 06/05/19 12:28 Freq: NEEDED Status: Active Protocol: Document 06/12/19 15:23 [facility] (Rec: 06/12/19 16:15 [facility] [email or web address]) Medical Review Prior Functional Status Medical History Reviewed Yes Diet/Fluid Consistency Regular Communication WNL Mobility and Gait Prior to hip fx 03/08/19, pt was independent with all mobilities and ambulation without AD. 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 Prior Functional Level (Other details) 03/08/19 hip fx s/p ORIF; pt d/ c'd to [facility], developed infection with hardware failure and underwent surgery and antiobiotic spacer placement 04/02/19. Pt dc'd to [facility]. Pt had complex L GIA by Dr Baer 05/16/19 and was d/c'd to [facility] again. Pt admitted with L GIA dislocation 3 days prior, no s/p closed reduction 06/04/19. Social History Household Members none Living Arrangements House Number of Floors (Floors) Two Floors Number of Stairs To Enter/Railing? Pt stays on main level of the house. 4 steps with L rail ascending to enter. Pt plans to have high threshold into kitchen ramped. Home Environment Standard Height Toilet,Tub/ Shower Home Equipment Front Wheel Walker,Manual Wheelchair,Bedside Commode,Tub Transfer Bench,Hand Held Shower,Pig Breeder,Sock Aid Employment Status Self-Employed Additional Social History Comment Pt stated that when she goes home, her friend will spend the night and assist with dinner and breakfast prep. Pt has 2 daughters locally, but both work multimedia assistant. She plans to hire private caregivers to assist with some intelligent systems engineer. M2 OT-IP Current Condition Start: 06/05/19 14:26 Freq: Status: Active Protocol: Document 06/12/19 15:23 [facility] (Rec: 06/12/19 16:15 [facility] [email or web address]) Occupational Therapy Current Condition Current Condition Evaluation Date 06/12/19 Treatment Diagnosis S/p Left Hip Arthroplasty dislocation and reduction, decreased self care Diagnosis Onset Date 06/06/19 Post Operative Precautions Posterior Hip Precautions No Hip Flexion > 90 degrees,No Hip Internal Rotation,No Hip Adduction Other Precautions Left Abductor brace on at all times except for showering. Weight Bearing Status Weight Bearing Status Touch Down Weight Bearing Allowed Weight Bearing Amount (enter % LLE Touch Down Weight bearing or #) (%) M3 OT- IP Subjective and Pain Start: 06/05/19 14:26 Freq: Status: Active Protocol: Document 06/12/19 15:23 [facility] (Rec: 06/12/19 16:15 [facility] [email or web address]) OT- Subjective Occupational Therapy Visit Type Type Initial Evaluation Visit Start Time 13:29 Visit Stop Time 13:52 Total Visit Minutes 23 Occupational Therapy Visit Comments Patient Comments Pt wanting to get up and use the BSC. Patient/Caregiver Goals To go to skilled rehab prior to going home. OT Pain Assessment Pain When Pain Assessed At Rest Pain Present Pain Present Denied Pain M4 OT- IP ADL's Start: 06/05/19 14:26 Freq: Status: Active Protocol: Document 06/12/19 15:23 [facility] (Rec: 06/12/19 16:15 [facility] [email or web address]) OT ADL-Grooming General Evaluation Grooming Ability Standby Assistance Areas Needing Assistance Retrieving/Set-up of Grooming Items OT ADL-Oral Care General Eval Oral Care Ability Independent OT ADL-Dressing General Eval Lower Body Dressing Ability Maximum Assistance Areas Needing Assistance Underpants/Brief,Socks, Orthosis/Prosthesis Comments OT Dressing Comments Pt Max A for all socks, brief and dependent to tara/doff left hip abductor brace. OT ADL-Toileting General Evaluation Toileting Ability Maximum Assistance Areas Needing Assistance Manage Clothing,Perform Perineal Hygiene Comments OT Toileting Comments One person to stand with pt ODELL x 1 with FWW after getting to stand and then dependent of another to assist with hygiene and brief management needs. OT ADL-Bathing Comments OT Bathing Comments Not at this time. M5 OT- IP IADL's Start: 06/05/19 14:26 Freq: Status: Active Protocol: Document 06/12/19 15:23 [facility] (Rec: 06/12/19 16:15 [facility] [email or web address]) OT-Instrumental Activities of Daily Living Home Safety Awareness Awareness of Need for Assistance at Home Decreased Awareness Home Safety Comments At this time pt has decreased insight as to the amount of assist pt will need to have at home to assist with dressing, bathing , toileting, and especially to tara/doff left hip abductor brace. Medication Management Medication Management No Deficits Identified Money Management Money Management No Deficits Identified Meal Preparation Meal Preparation Caregiver Provides Assist Beta Tester Beta Tester Caregiver Provides Assist M6 OT- IP Functional Cognition Start: 06/05/19 14:26 Freq: Status: Active Protocol: Document 06/12/19 15:23 [facility] (Rec: 06/12/19 16:15 [facility] [email or web address]) Cognitive Factors Limiting Selfcare Function Cognitive Ability Level of Alertness Alert Patient Orientation Name,Age,Birthday,Month,Date, Year,Day of Week,Place, Situation Attention Span Ability Capable of Focused Attention, Capable of Sustained Attention Ability to Follow Commands Able to Follow One Step Commands,Able to Follow Multi- Step Commands Memory Description No Deficits Noted Safety Awareness No Deficits Noted Problem Solving Ability Needs Assist to Identify Solutions Executive Function Ability Unable to Make Plans,Unable to Organize Plans Cognitive Comments Cognitive Assessment Comments Pt able to follow hip precautions well and maintain touch down weight bearing with good safety. Pt have decreased insight as to be able to care for herself at home as only has friend to stay with her at night and assist with meals. OT- Vision and Hearing OT- Hearing Assessment OT- Hearing Assessment WFL OT- Vision Assessment Visual Acuity Glasses All The Time M7 OT- IP Mobility and Balance Start: 06/05/19 14:26 Freq: Status: Active Protocol: Document 06/12/19 15:23 [facility] (Rec: 06/12/19 16:15 [facility] [email or web address]) OT- Bed Mobility Assessment Supine to Sit Supine to Sit Assist Moderate Assistance,2 Person Assistance Sit to Supine Sit to Supine Assist Moderate Assistance,2 Person Assistance OT-Transfer Assessment Sit to and From Stand Sit to and from Stand Moderate Assistance,2 Person Assistance Transfers Transfer Ability Moderate Assistance,2 Person Assistance Technique Transfer Destination Bed,Bedside Commode Transfer Technique Stand Step Pivot Devices Transfer Assistive Devices Gait Belt,Front Wheeled Walker Comments Mobility Comments Pt needing use of pillow between her legs to asisst to help to get her out and into the bed to prevent her active left hip abduction. Pt needing MODA X 2 to help to stand, assist for balance and to guide FWW. pt did not complain of any pain before or after use of BSC and getting back to bed. OT- Balance Assessment Sitting Balance and Reactions Static Sitting Balance Ability Good Dynamic Sitting Balance Ability Fair Standing Balance and Reactions Static Standing Balance Ability Poor M8 OT- IP Objective Assessments Start: 06/05/19 14:26 Freq: Status: Active Protocol: Document 06/12/19 15:23 [facility] (Rec: 06/12/19 16:15 [facility] [email or web address]) OT Gross Range of Motion Upper Extremity Range of Motion Assessment Within Functional Limits OT Strength Upper Extremity Strength Assessment Within Functional Limits OT-Muscle Tone Assessment Muscle Tone WNL Yes M9 OT- IP Assessment and Plan Start: 06/05/19 14:26 Freq: Status: Active Protocol: Document 06/12/19 15:23 [facility] (Rec: 06/12/19 16:15 [facility] [email or web address]) OT Summary Assessment and Plan Potential Rehabilitation Potential Good Analytic Complexity at Evaluation Moderate Summary OT Impairments Strength,Balance,Functional Mobility,Dressing,Toileting, Bathing,Toilet Transfers, Shower Transfers Progress Towards Goals Slow Progress due to Medical Issues,Slow Progress due to Activity Tolerance Assessment Summary Pt MOD compexity due to multiple history of hip dislocations, pt now touch down weight bearing for LLE, needing extensive assist for self-care , functional mobility and dependent to tara/doff left hip abductor brace. Pt will benefit from skilled rehab as currently unable to care for herself and lives alone. Goals Dressing Goal Moderate Assistance Toileting Goal Moderate Assistance Bathing Goal Moderate Assistance Toilet Transfer Goal Moderate Assistance Shower Transfer Goal Moderate Assistance Days to Meet Goals 10 Frequency of Treatment Frequency Of Treatment Once a Day Treatment Plan OT Treatment Plan ADL Training,Functional Mobility,Patient/Family Education,Discharge Planning Discharge Recommendations OT Discharge Recommendations SNF Rehab
[2019-06-12 19:31] VITALS: BP 127/61; PULSE 71; RESP 18; TEMP 36.7
[2019-06-12] MEDS: OXYCODONE IR 5 MG TABLET PO (22:26)
[2019-06-13 00:45] VITALS: BP 115/55; PULSE 72; RESP 15; TEMP 36.7; O2SAT 96
[2019-06-13 05:05] VITALS: BP 120/56; PULSE 73; RESP 16; TEMP 36.8; O2SAT 96
[2019-06-13 08:31] VITALS: BP 112/54; PULSE 71; RESP 16; TEMP 36.2; O2SAT 97
--- NOTE | 2019-06-13 08:56 | P.DS_ITS ---
History of Present Illness History of Present Illness Date Patient Seen: 06/13/19 Time Patient Seen: 08:56 Chief complaint: Dislocated hip Narrative: Hospital day 10, postop day 9 and 6 with left total hip arthroplasty dislocation/reduction. Patient remained stable at this time in left hip abduction brace. She was up with physical therapy yesterday and did well with brace on. Pain is minimal and using oxycodone only at bedtime to help sleep. Anticipate patient is for discharge back to [facility] today for further rehab and planning for discharge home. Discharge Providers Provider Date of admission: 06/06/19 14:11 Discharge Date: 06/13/19 Primary care physician: Caprice Burrows PA-C Consults: 06/04/19 15:32 Consult to Discharge Planning Routine Comment: back to snf after hip reduction Consult to Physical Therapy Evaluate & Treat Comment: Physician Instructions: post op GIA protocol 06/04/19 15:32 Consult to Respiratory Therapy Evaluate & Treat Comment: Physician Instructions: Evaluate and treat 06/05/19 09:26 Consult to Occupational Therapy Evaluate & Treat Comment: Status post left total hip dislocation reduction. Physician Instructions: Evaluate and treat 06/11/19 16:07 Consult to Physical Therapy Evaluate & Treat Comment: keep brace on, wbat, oob today, posterior hip prec Physician Instructions: Evaluate and Treat 06/12/19 09:30 Consult to Occupational Therapy Evaluate & Treat Comment: Ambulate in abduction brace only. Brace on contin Physician Instructions: Evaluate and treat Consult to Physical Therapy Evaluate & Treat Comment: Ambulate in abduction brace only Physician Instructions: Evaluate and Treat 06/12/19 11:04 Consult to Occupational Therapy Evaluate & Treat Comment: per [facility] request Physician Instructions: Evaluate and treat Discharge provider: Cam العراقي PA-C Summary Hospital Course Discharge Diagnosis: Status post left total hip arthroplasty dislocation/reduction x2 Hospital Course: Patient brought to hospital on 06/06/2019 for left total hip arthroplasty dislocation. She had reduction done by Dr. Berg. Patient remained stable for the next couple of days but then had increased hip pain and limited motion of her leg. She was again found to have dislocation and left hip. Reduction was again done by Dr. Berg. Patient was then placed in a left hip abduction brace which he is kept on since then. She has remained stable. Ready for discharge to [facility] for further rehab Status at Discharge Cognitive/behavioral status at discharge: oriented Functional status at discharge: uses cane/walker Overall status at discharge: patient is progressing back to baseline Time Spent with Patient Time spent: Less than 30 minutes Exam Vital Signs (past 8 hours): - 06/13/19 05:05 06/13/19 08:31 Temperature 98.2 F 97.2 F L Pulse Rate 73 71 Respiratory Rate 16 16 Blood Pressure 120/56 L 112/54 L Pulse Oximetry 96 97 Oxygen Delivery Method Room Air Oxygen Flow Rate 0 Narrative Exam Narrative: Alert, oriented no acute distress lying in bed. Left leg. Abduction brace in place with good padding. No calf pain or swelling. Pulses and sensation to lower leg symmetrical. Objective Labs Result Diagrams: 06/10/19 08:28 Discharge Plan Discharge Plan Patient Disposition: SNF Transfer to: [facility] Under care of provider: Facility MD or PCP Discharge Med Rec/Prescriptions Prescriptions: New oxycodone 5 mg Tablet 5 mg PO Q4HR Qty: 30 RF: 0 Continued levothyroxine [Synthroid] 75 mcg tablet 75 mcg PO DAILY Qty: 90 RF: 3 acetaminophen 325 mg Tablet 975 mg PO TID Qty: 60 RF: 0 aspirin 81 mg tablet,delayed release (DR/EC) 81 mg PO DAILY Qty: 20 RF: 0 ascorbic acid (vitamin C) [Vitamin C] 500 mg Tablet 500 mg PO BID Qty: 30 RF: 0 docusate sodium [DOK] 100 mg Capsule 100 mg PO BID Qty: 30 RF: 0 ferrous sulfate [iron] 325 mg (65 mg iron) tablet 325 mg PO BID Qty: 60 RF: 0 calcium carbonate 400 mg calcium (1,000 mg) Tablet,Chewable 1,000 mg PO Q4H PRN (Reason: Dyspepsia) RF: 0 magnesium hydroxide [Milk of Magnesia] 400 mg/5 mL Suspension 30 ml PO PRN PRN (Reason: Constipation) RF: 0 bisacodyl 10 mg Suppository 10 mg WI PRN PRN (Reason: Constipation) RF: 0 Fleet Enema 19-7 gram/118 mL Enema 1 ea WI PRN PRN (Reason: Constipation) RF: 0 lisinopril-hydrochlorothiazide 10-12.5 mg Tablet 1 tab PO DAILY RF: 0 Lactobacillus acidophilus [Acidophilus] Capsule 1 cap PO DAILY RF: 0 bisacodyl 5 mg Tablet 5 - 10 mg PO PRN PRN (Reason: mild to severe constipation) RF: 0 cholecalciferol (vitamin D3) [Vitamin D3] 1,000 unit Tablet 2,000 unit PO DAILY RF: 0 oxycodone 5 mg Tablet 5 mg PO Q4H PRN (Reason: Pain, Moderate) RF: 0 Discontinued ceftriaxone 2 gram recon soln 2 gram IV Q24H Qty: 42 RF: 0 oxycodone 5 mg Tablet 10 mg PO Q4H PRN (Reason: Pain, Severe) RF: 0 Follow up/Referrals: Caprice Burrows PA-C [Primary Care Provider] - Discharge Health Status Brief summary of current health status: Patient is remained stable. She has had 2 episodes of left total hip arthroplasty dislocation and reduction. She has remained stable in a left hip abduction brace. She is to wear the brace at all times except for bathing and changing her clothes. Multidrug resistant organism: No MDRO Provider Discharge Instructions Diet: Diet as Tolerated Liquid consistency: Normal/Thin Food texture: Regular Activity: Ambulate as tolerated with left hip abduction brace in place. Use walker as needed. Special Rehabilitation Services Reason for rehabilitation: Post-operative therapy Rehab type: Physical therapy, Occupational therapy and Home health Restrictions to mobility: Keep left hip abduction brace in place at all times except for bathing and changing clothes. Visit Report/Discharge Packet Instructions: DI for Hip Dislocation -- Adult Discharge Data Primary Care Provider: Caprice Burrows VTE Deep Vein Thrombosis/Pulmonary Embolism Present on Admission: No
[2019-06-13] MEDS: ENOXAPARIN 40 MG/0.4 ML SYRINGE SUBCUT (09:17)
[2019-06-13] MEDS: LEVOTHYROXINE 75 MCG TABLET PO (09:17)
[2019-06-13] MEDS: hydroCHLOROthiazide 12.5 MG CAPSULE PO (09:17)
[2019-06-13 09:18] VITALS: BP 112/54
[2019-06-13] MEDS: CHOLECALCIFEROL (VITAMIN D3) 1,000 UNIT TABLET 2000 UNIT PO (09:18)
[2019-06-13] MEDS: FERROUS SULFATE 325 MG TABLET PO (09:18)
[2019-06-13] MEDS: ASPIRIN EC 81 MG TABLET PO (09:18)
[2019-06-13] MEDS: ASCORBIC ACID 500 MG TABLET PO (09:18)
[2019-06-13] MEDS: LISINOPRIL 10 MG TABLET PO (09:18)
[2019-06-13] MEDS: ACETAMINOPHEN 325 MG TABLET 975 MG PO (09:18)
[2019-06-13] MEDS: LACTOBACILLUS ACIDOPHILUS TABLET 1 EACH PO (09:19)
--- NOTE | 2019-06-13 11:14 | CM.DPC ---
DCP: continued: Case discussed this morning with ortho RG العراقي. He has completed the d/c to [facility] orders. Transport discussed: he states pt is appropriate to transport via w/c van as pt appears to be doing very well with the use of hard brace. [place] LEANDRO Vasques [phone] is updated. Gives authorization for the return to [facility] under the [facility] benefit. : updated. w/c van transport is set up for 1230. Pt is updated and says she will be glad to get over to [facility] and continue her treatment. She says she is comfortable using the brace. MONA Bell is updated. SNF orders are faxed and place to [facility] packet. New PASRR: not needed. P: [facility] today: 1230 w/c van
--- NOTE | 2019-06-13 12:08 | PC.NURSE ---
Pt resting in bed, all belongings packed up. Eating lunch and will be ready to go to [facility] at 1230. Called report to Marysol at [facility] and answered all questions.
--- NOTE | 2019-06-13 12:43 | PC.NURSE ---
Pt out via w/c by [facility] transport with all belongings and packet.
== END 2019-06-13 12:43 | DRG 560 ==
LOC: ED 11:54 → AC 11:55
PROVIDERS: Orthopaedic Surgery; Admitting Provider Orthopaedic Surgery Foot and Ankle Surgery; Emergency Provider Emergency Medicine; Family Provider Physician Assistant; PCP Physician Assistant; Visit Provider Orthopaedic Surgery Foot and Ankle Surgery
PROC: 0SWBXJZ Revision of Synthetic Substitute in Left Hip Joint, External Approach (ICD-10-PCS; principal; 2019-06-04 19:30)
DX: T84.021A Dislocation of internal left hip prosthesis, initial encounter (principal); M00.9 Pyogenic arthritis, unspecified; T84.52XA Infection and inflammatory reaction due to internal left hip prosthesis, initial encounter; B37.3 Candidiasis of vulva and vagina; E03.9 Hypothyroidism, unspecified; Z87.891 Personal history of nicotine dependence
CPT/HCPCS: 36415; 51701; 51705; 72170; 73501; 73502; 73700; 76000; 85025; 85651; 86140; 86850; 86900; 86901; 94770; 97110; 97116; 97161; 97164; 97165; 97166; 97530; 97535; 99284; G0378; J0330; J0696; J1170; J1650; J2405; J2704; J3010

== ENCOUNTER → 2019-07-09 15:00 | Outpatient (CLI) | payer OTHER, SELFPAY ==
[2019-05-17 13:45] VITALS: PULSE 119; RESP 10; O2SAT 99
[2019-06-04 13:59] VITALS: BMI 31.1
[2019-07-09 15:47] LABS: Add Manual Diff / Slide Review NO; Basophils Absolute Auto 0 /uL (0-100); Basophils Percent Auto 0.4 % (0-2); Eosinophils Absolute Auto 300 /uL (0-450); Eosinophils Percent Auto 4.1 % (2-4); Hematocrit 31.4 % (36-46); Hemoglobin 10.4 g/dL (12.0-16.0); Lymphocytes Absolute Auto 2200 /uL (1100-4500); Lymphocytes Percent Auto 33.1 % (25-40); Mean Corpuscular HGB Conc 33.1 % (30-36); Mean Corpuscular Volume 87.6 fL (80-100); Monocytes Absolute Auto 400 /uL (0-900); Monocytes Percent Auto 6.3 % (3-14); Neutrophils Absolute Auto 3700 /uL (1500-7000); Neutrophils Percent Auto 56.1 % (50-75); Platelet Count 336 X10^3/uL (150-400); Red Blood Cell Count 3.58 X10^6/uL (4.0-5.2); Red Cell Distribution Width 16.8 % (11.6-14.8); White Blood Cell Count 6.6 X10^3/uL (4.5-11.0)
[2019-07-09 16:22] LABS: BUN Creatinine Ratio 28.6 (6-22); Blood Urea Nitrogen 20 mg/dL (7-17); Calcium 9.9 mg/dL (8.4-10.2); Carbon Dioxide 24 mmol/L (22-32); Chloride 102 mmol/L (98-107); Estimated Glomerular Filt Rate > 60.0 mL/min (>60); Glucose 88 mg/dL (80-110); HEMOLYSIS < 15 (0-50); Potassium 4.6 mmol/L (3.4-5.1); Sodium 136 mmol/L (137-145)
[2019-07-09 16:50] LABS: Thyroid Stimulating Hormone 2.56 uIU/mL (0.47-4.68)
== END ==
PROVIDERS: Family Provider Physician Assistant; PCP Physician Assistant; Visit Provider Hospitalist
DX: E03.9 Hypothyroidism, unspecified (principal); I10 Essential (primary) hypertension
CPT/HCPCS: 36415; 80048; 84443; 85025

== ENCOUNTER 2019-07-15 12:11 | Observation (INO) | payer OTHER, SELFPAY ==
[2019-05-17 13:45] VITALS: PULSE 119; RESP 10; O2SAT 99
[2019-06-04 13:59] VITALS: BMI 31.1
[2019-07-15] VITALS (21 sets, daily range): BP systolic 100–160; BP diastolic 47–96; PULSE 60–85; RESP 12–20; TEMP 36.3–36.8; O2SAT 96–100; BMI 27.8
--- NOTE | 2019-07-15 | DI.RAD.S_ITS ---
PROCEDURE: [id number] W PEL IF PERFORMED INDICATIONS: CLOSED REDUCTION LEFT HIP TECHNIQUE: 5 fluoroscopic images of the left hip. COMPARISON: [facility], CR, XR HIP W PEL IF DONE LT 2V, 07/15/2019, 12:36. FINDINGS: 3 fluoroscopic images demonstrate technically successful reduction of a dislocated total left hip arthroplasty. IMPRESSION: Successful reduction of dislocated hip prosthesis. Dictated by: Zaire Rosales M.D. on 07/15/2019 at 16:41 Approved by: Zaire Rosales M.D. on 07/15/2019 at 16:43
--- NOTE | 2019-07-15 12:18 | DI.RAD.S_ITS ---
PROCEDURE: XR HIP W PEL IF DONE LT 2V INDICATIONS: pain TECHNIQUE: 2 views of the hip were acquired. COMPARISON: [facility] [place], CR, XR PELVIS WITH LATERAL HIP LEFT, 07/01/2019, 14:46. FINDINGS: The postoperative changes related to a left hip arthroplasty are present. The femoral component is noted to be dislocated with respect to the acetabular component. No associated fractures are appreciated. Overlying soft tissues are grossly unremarkable. IMPRESSION: Dislocated left femoral prosthesis with respect to the acetabular component. Dictated by: Soren Kim M.D. on 07/15/2019 at 12:07 Approved by: Soren Kim M.D. on 07/15/2019 at 12:08
[2019-07-15] MEDS: MORPHINE 2 MG/ML INJ IV ×2 (13:13→14:47)
[2019-07-15] MEDS: PROPOFOL 200 MG/20 ML VIAL 75 MG IV (14:18)
--- NOTE | 2019-07-15 14:21 | DI.RAD.S_ITS ---
PROCEDURE: XR PELVIS 1-2V INDICATIONS: left hip still out TECHNIQUE: 1 view of the lower pelvis acquired. COMPARISON: [facility], , XR PELVIS 1-2V, 06/06/2019, 8:53. FINDINGS: Superior dislocation of femoral component of total left hip arthroplasty. The angulation of the acetabular cup is steep. The entirety of the femoral component is not visualized. Cannot exclude a distal fracture on the film provided. No evidence of hardware failure or loosening. IMPRESSION: 1. Dislocated total left hip arthroplasty. 2. Femoral component incompletely imaged. Dictated by: Zaire Rosales M.D. on 07/15/2019 at 15:05 Approved by: Zaire Rosales M.D. on 07/15/2019 at 15:07
--- NOTE | 2019-07-15 14:37 | ED.LOWEXIN ---
HPI - Extremity Injury (Lower) General Chief Complaint: Extremity Injury, Lower Stated Complaint: Hip pain, possible dislocation Time Seen by Provider: 07/15/19 12:16 Source: EMS Mode of arrival: EMS History of Present Illness HPI Narrative: Patient is a 73-year-old female with left hip dislocation. She has had recurrent left hip dislocation, initially started with ORIF which got infected and failure of hardware. She has since had at least 2 dislocations. Previously needed to go to OR. Of the bath no fall she thinks she bent the wrong or moved her foot wrong. Immediate pain. Obvious dislocation of left hip Related Data Home Medications Medication Instructions Recorded Confirmed acetaminophen 325 mg PO PRN PRN 07/15/19 07/15/19 aspirin 325 mg PO PRN PRN 07/15/19 07/15/19 oxycodone 5 mg PO Q4HR PRN 07/15/19 07/15/19 Previous Rx's Medication Instructions Recorded levothyroxine 75 mcg tablet 75 mcg PO DAILY #90 tab 02/13/19 lisinopril 10 1 tab PO DAILY #30 tab 07/12/19 mg-hydrochlorothiazide 12.5 mg tablet Allergies Allergy/AdvReac Type Severity Reaction Status Date / Time Vkwybeq-Qlb-Uzi Reductase AdvReac Intermediate myalgias, Verified 07/15/19 12:16 Inhibitor tinnitus [[id number] REDUCTASE INHIBITOR] Review of Systems Review of Systems ROS Unobtainable: All systems reviewed & are unremarkable except as noted in HPI and below Constitutional Constitutional: Denies chills, Denies fever(s), Denies lethargy and Denies weakness Eyes Eyes: Denies change in vision, Denies eye discharge, Denies irritation and Denies loss of vision ENT Ears, Nose, Mouth, and Throat: Denies change in voice, Denies neck pain and Denies sore throat Cardiovascular Cardiovascular: Denies chest pain, Denies irregular heart rhythm, Denies lightheadedness, Denies palpitations, Denies dyspnea, Denies dyspnea on exertion and Denies orthopnea Respiratory Respiratory: Denies cough, Denies dyspnea, Denies dyspnea on exertion and Denies wheezing Gastrointestinal Gastrointestinal: Denies abdominal pain, Denies change in bowel habits, Denies diarrhea, Denies nausea and Denies vomiting Genitourinary Genitourinary: Denies hematuria, Denies flank pain, Denies urinary incontinence and Denies urinary urgency Musculoskeletal Musculoskeletal: Reports as per HPI and Denies neck pain Integumentary/Breasts Skin/Breast: Denies pruritus, Denies erythema, Denies rash and Denies wounds Neurologic Neurologic: Denies loss of vision and Denies weakness Endocrine Endocrine: Denies palpitations Allergic/Immunologic Allergic/Immunologic: Denies wheezing [facility] Medical History History of cervical cancer (Acute) Hypertension (Chronic) Hypothyroid (Chronic) RLS (restless legs syndrome) (Acute) Thyroid cancer (Chronic) Surgical History History of myomectomy (Chronic) History of thyroidectomy (Inactive) Status post hip surgery (Acute 04/02/19) Status post hip surgery (Acute ~02/2019) Family History Father Alcoholism Smoker Heart disease Stroke Mother No problems noted. Sister No problems noted. Social History household members: none lives independently: Yes Smoking Status: Former smoker Tobacco: How many years used: 42 second hand exposure: No alcohol intake: current substance use type: marijuana additional social history: Reports smoking cigarettes from age 14 to age 56, 0.5 to 1 pack per day. Reports to drinking 2 glasses of wine daily and 1-2 shots of Vodka prior to bedtime. Notes this to be a lifelong practice. Family History Father Alcoholism Smoker Heart disease Stroke Mother No problems noted. Sister No problems noted. Social History household members: none lives independently: Yes Smoking Status: Former smoker Tobacco: How many years used: 42 second hand exposure: No alcohol intake: current substance use type: marijuana additional social history: Reports smoking cigarettes from age 14 to age 56, 0.5 to 1 pack per day. Reports to drinking 2 glasses of wine daily and 1-2 shots of Vodka prior to bedtime. Notes this to be a lifelong practice. Exam Initial Vital Signs Initial Vital Signs: Vital Signs Temperature 97.9 F 07/15/19 12:13 Pulse Rate 64 07/15/19 12:13 Respiratory Rate 16 07/15/19 12:13 Blood Pressure 133/72 07/15/19 12:13 Pulse Oximetry 100 07/15/19 12:13 GENERAL: Well-appearing, well-nourished and in no acute distress. HEENT: Head atraumatic,EOMI, pupils reactive, face symmetric, moist mucous membranes CARDIOVASCULAR: Regular rate and rhythm without murmurs, rubs or gallops. RESPIRATORY: Breath sounds equal bilaterally, no wheezes rales or rhonchi. ABDOMEN: Soft, nontender. Normoactive bowel sounds all 4 quadrants. No guarding or rebound. EXTREMITIES: Normal range of motion, no clubbing or edema. Neurovascularly intact Left leg shortened distal pedal pulse intact able to move toes pain and NEUROLOGICAL: Alert and oriented x4. SKIN: Warm, dry, no laceration, no petechiae, no rashes or lesions. Procedures Orthopedic Joint Reduction Joint #1: Time Out Performed: Yes Side: left Joint Reduction Location: hip Analgesia: procedural sedation Technique used: traction/counter-traction and direct manipulation Post-reduction neuro exam: intact Post-reduction vascular: intact Post Reduction X-Ray Obtained: Yes Post Reduction X-Ray Results: not reduced Patient Tolerated Procedure: Well Procedural Sedation Patient Age: Patient is 5yrs or older Consent signed: Yes Time out performed: Yes Indication: fracture/dislocation reduction ASA Class: I Mallampati Airway Classification: Class I Preparation: monitor car operator applied, pulse oximeter, capnometry used and IV secured IV Propofol dose (mg): 75 Intraservice time/total sedation time (min): 15 ED Sedation Level: Moderate (Concious) Patient Tolerated Procedure: Well Complications: none Course Orders Ordered: ED Orders 07/15/19 12:18 XR hip w pel if done LT 2V Stat 07/15/19 14:21 XR pelvis 1-2V Stat Acetaminophen (Tylenol) 975 mg PO TID [facility] Aspirin (Aspirin Ec) 81 mg PO BID [facility] Docusate Sodium (Colace) 100 mg PO BID [facility] Hydrochlorothiazide (Hydrochlorothiazide) 12.5 mg PO DAILY [facility] Lactated Ringer's (Lactated Ringers) 1,000 mls @ 125 mls/hr IV CONT IN Last Admin: 07/15/19 18:07 Dose: 125 mls/hr Documented by: JOSE Levothyroxine Sodium (Synthroid) 75 mcg PO 0700 [facility] Lisinopril (Zestril) 10 mg PO DAILY [facility] Ondansetron HCl (Zofran) 4 mg IV Q4HR PRN PRN Reason: Nausea And Vomiting Ondansetron HCl (Zofran Odt) 4 mg PO Q4HR PRN PRN Reason: Nausea Oxycodone HCl (Percolone) 5 mg PO Q3HR PRN PRN Reason: Pain, Moderate (4-6) Oxycodone HCl (Percolone) 5 mg PO Q4HR PRN PRN Reason: pain Polyethylene Glycol (Miralax) 17 gm PO DAILY PRN PRN Reason: Constipation Discontinued Medications Acetaminophen (Tylenol) 325 mg PO NOW PRN PRN Reason: Pain, Mild (1-3) Acetaminophen (Tylenol) 325 mg PO PRN PRN PRN Reason: pain Hydrocodone Bitart/Acetaminophen (Terry 5/325) 1 tab PO Q30MIN PRN PRN Reason: Mild or moderate pain Aspirin (Aspirin) 325 mg PO PRN PRN PRN Reason: pain Fentanyl (Sublimaze) 50 mcg IV Q5MIN PRN PRN Reason: Pain, Moderate (4-6) Hydromorphone HCl (Dilaudid) 0.5 mg IV Q5MIN PRN PRN Reason: Pain, Moderate (4-6) Lactated Ringer's (Lactated Ringers) 1,000 mls @ 42 mls/hr IV CONT [facility] Last Infusion: 07/15/19 16:51 Dose: 0 mls/hr Documented by: Infusion: 07/15/19 16:48 Dose: 42 mls/hr Documented by: Admin: 07/15/19 15:56 Dose: 42 mls/hr Documented by: AMY Lorazepam (Ativan) 0.25 mg IV NOW PRN PRN Reason: Anxiety Morphine Sulfate (Morphine) 2 mg IV NOW ONE Stop: 07/15/19 13:00 Last Admin: 07/15/19 13:13 Dose: 2 mg Documented by: YOKASTA Morphine Sulfate (Morphine) 2 mg IV NOW ONE Stop: 07/15/19 14:39 Last Admin: 07/15/19 14:47 Dose: 2 mg Documented by: YOKASTA Ondansetron HCl (Zofran) 4 mg IV NOW PRN PRN Reason: Nausea And Vomiting Propofol (Diprivan) 75 mg 1 mg/kg (75 mg) IV NOW ONE Stop: 07/15/19 13:00 Last Admin: 07/15/19 14:18 Dose: 75 mg Documented by: YOKASTA Consultations Consultation #1: Dr. Zamora has reviewed x-rays. Dr. Baer will reduce it Time: 14:56 Vital Signs Vital signs: Vital Signs - 8 hr 07/15/19 12:13 07/15/19 12:16 07/15/19 14:00 Temperature 97.9 F 97.9 F Pulse Rate 64 64 66 Respiratory Rate 16 16 14 Blood Pressure [Left Arm] 133/72 Pulse Oximetry 100 100 07/15/19 14:12 07/15/19 14:19 07/15/19 14:25 Temperature Pulse Rate 85 67 65 Respiratory Rate 20 14 12 Blood Pressure [Left Arm] 147/64 H 146/64 H 141/65 H Pulse Oximetry 100 100 98 07/15/19 14:30 07/15/19 14:35 07/15/19 14:40 Temperature Pulse Rate 65 62 62 Respiratory Rate 14 18 18 Blood Pressure [Left Arm] 153/65 H 160/66 H 138/60 Pulse Oximetry 100 100 100 07/15/19 14:45 Temperature Pulse Rate 61 Respiratory Rate 12 Blood Pressure [Left Arm] 138/62 Pulse Oximetry 100 MDM - Extremity Injury (Lower) Lab Data Result diagrams: 07/15/19 18:40 Labs: Point of Care Testing Test Results Not applicable Imaging Data left hip: Radiologist's impression: PROCEDURE: XR HIP W PEL IF DONE LT 2V INDICATIONS: pain TECHNIQUE: 2 views of the hip were acquired. COMPARISON: [facility], , XR PELVIS WITH LATERAL HIP LEFT, 07/01/2019, 14:46. FINDINGS: The postoperative changes related to a left hip arthroplasty are present. The femoral component is noted to be dislocated with respect to the acetabular component. No associated fractures are appreciated. Overlying soft tissues are grossly unremarkable. IMPRESSION: Dislocated left femoral prosthesis with respect to the acetabular component. Dictated by: Soren Kim M.D. on 07/15/2019 at 12:07 pelvis: Radiologist's impression: PROCEDURE: XR PELVIS 1-2V INDICATIONS: left hip still out TECHNIQUE: 1 view of the lower pelvis acquired. COMPARISON: [facility], CR, XR PELVIS 1-2V, 06/06/2019, 8:53. FINDINGS: Superior dislocation of femoral component of total left hip arthroplasty. The angulation of the acetabular cup is steep. The entirety of the femoral component is not visualized. Cannot exclude a distal fracture on the film provided. No evidence of hardware failure or loosening. IMPRESSION: 1. Dislocated total left hip arthroplasty. 2. Femoral component incompletely imaged. Dictated by: Zaire Rosales M.D. on 07/15/2019 at 15:05 MDM Narrative Medical decision making narrative: Unfortunately hip reduction was unsuccessful. Orthopedics has been consulted. Dr. Baer will reduce hip in the OR. Discharge Plan Departure Patient Disposition: Admitted as Observation Clinical Impression: Dislocation of left hip Qualifiers: Encounter type: initial encounter Qualified Code(s): S73.005A - Unspecified dislocation of left hip, initial encounter Discharge Date/Time: 07/15/19 15:30 Admit Date/Time: 07/15/19 15:29 Admit Provider: Linda Baer
--- NOTE | 2019-07-15 15:51 | PM.HP.1 ---
History of Present Illness History of Present Illness Date Patient Seen: 07/15/19 Time Patient Seen: 15:58 Chief complaint: Hip pain, possible dislocation Narrative: This is a 73-year-old female who is well known to me with a history of a complex left hip problem she had a left hip fracture which was complicated by failure of hardware and infection and had IV antibiotics previously. She then ultimately underwent a complex left hip revision. She has a history of 1 previous hip dislocation which underwent closed reduction. Patient has been in a hip abduction brace and at home where she has been fairly independent. She was working with a bath aid today when she leaned forward and went to get up and noted fairly severe left hip pain. O she in the bath aide felt that she probably had dislocated her hip and she was transported to the hospital for evaluation. Patient History Medical History History of cervical cancer (Acute) Hypertension (Chronic) Hypothyroid (Chronic) RLS (restless legs syndrome) (Acute) Thyroid cancer (Chronic) Surgical History History of myomectomy (Chronic) History of thyroidectomy (Inactive) Status post hip surgery (Acute 04/02/19) Status post hip surgery (Acute ~02/2019) Family History Father Alcoholism Smoker Heart disease Stroke Mother No problems noted. Sister No problems noted. Social History household members: none lives independently: Yes Smoking Status: Former smoker Tobacco: How many years used: 42 second hand exposure: No alcohol intake: current substance use type: marijuana additional social history: Reports smoking cigarettes from age 14 to age 56, 0.5 to 1 pack per day. Reports to drinking 2 glasses of wine daily and 1-2 shots of Vodka prior to bedtime. Notes this to be a lifelong practice. Family & Social History Family History Father Alcoholism Smoker Heart disease Stroke Mother No problems noted. Sister No problems noted. Social History: household members none lives independently Yes Safety & Behavioral: Feels Safe in Current Yes Environment Been Physically Hurt or No Threatened By a Person Tobacco & Substance use: Tobacco type cigarettes Smoking Status Former smoker alcohol intake current alcohol intake frequency a few times a week Substance Use Type marijuana Meds Home Medications and Allergies Home Medications Medication Instructions Recorded Confirmed Type levothyroxine 75 mcg tablet 75 mcg PO DAILY #90 tab 02/13/19 07/15/19 Rx lisinopril 10 1 tab PO DAILY #30 tab 07/12/19 07/15/19 Rx mg-hydrochlorothiazide 12.5 mg tablet acetaminophen 325 mg PO PRN PRN 07/15/19 07/15/19 History aspirin 325 mg PO PRN PRN 07/15/19 07/15/19 History oxycodone 5 mg PO Q4HR PRN 07/15/19 07/15/19 History Allergies Allergy/AdvReac Type Severity Reaction Status Date / Time Plroivu-Hbj-Laq Reductase AdvReac Intermediate myalgias, Verified 07/15/19 12:16 Inhibitor tinnitus [[id number] REDUCTASE INHIBITOR] Review of Systems Review of Systems Narrative: She notes that she has been doing reasonably well, denies fevers, denies chills, has not had any drainage or difficulty with her hip and has had fairly minimal pain. She notes she has been relatively independent at home but has been using her hip abduction brace. Exam Vital Signs (past 8 hours): - 07/15/19 12:13 07/15/19 12:16 07/15/19 14:00 Temperature 97.9 F 97.9 F Pulse Rate 64 64 66 Respiratory Rate 16 16 14 Blood Pressure [Left Arm] 133/72 Pulse Oximetry 100 100 07/15/19 14:12 07/15/19 14:19 07/15/19 14:25 Temperature Pulse Rate 85 67 65 Respiratory Rate 20 14 12 Blood Pressure [Left Arm] 147/64 H 146/64 H 141/65 H Pulse Oximetry 100 100 98 07/15/19 14:30 07/15/19 14:35 07/15/19 14:40 Temperature Pulse Rate 65 62 62 Respiratory Rate 14 18 18 Blood Pressure [Left Arm] 153/65 H 160/66 H 138/60 Pulse Oximetry 100 100 100 07/15/19 14:45 Temperature Pulse Rate 61 Respiratory Rate 12 Blood Pressure [Left Arm] 138/62 Pulse Oximetry 100 Oxygen Delivery Method Room Air Narrative Exam Narrative: HEENT is benign she is resting comfortably, lungs are clear cor regular rate and rhythm abdomen soft and benign, examination of the left leg shows obvious for shortening of the left leg, her incision appears to be healing, she is able to fire toe flexors and extensors with trace motion. Assessment & Plan Assessment & Plan narrative: X-rays show left hip dislocation which is fairly high no other obvious fractures. Plan I have recommended closed reduction of her left hip. Procedure alternatives risks benefits and complications were discussed in detail. I did tell her that I am worried that she has had recurrent instability after her revision hip arthroplasty and ultimately may require revision of her components. She is still medically recovering after fairly prolonged course and would prefer to proceed with simple closed reduction today and resumption of her abduction brace but does understand that long-term we may need to do additional revision surgery. Possibility of difficulty reducing the hip requiring additional surgery was also discussed.
[2019-07-15] MEDS: LACTATED RINGERS 1,000 ML 42 ML IV (15:56)
--- NOTE | 2019-07-15 16:03 | PM.OP.1 ---
Operative Date/Time/Diagnoses Date of procedure: 07/15/19 Time of procedure: 16:04 Pre-op diagnosis: Left hip dislocation status post complex left hip revision Post-op diagnosis: same Procedure & Clinicians Procedure: Closed reduction left hip Same procedure as scheduled: Yes Indications: 73-year-old female with a complex medical history with a history of a left hip fracture complicated by failure of bone, infection and ultimately complex left hip revision who now was previously dislocated 1 time he has been home in an abduction brace but she hyperflexed and 80 adducted today and dislocated her hip. She is brought the operating room for closed reduction. Surgeon: Linda Baer Anesthesia Type: General Operative Notes Findings: Reduced with longitudinal traction, flexion and AB duction, reduction confirmed concentric on AP and cross-table lateral x-ray, some instability with adduction and hip flexion Closure Type: not applicable Specimen(s): none sent Estimated Blood Loss (mL): 0 Blood products transfused: none Procedure in detail: Patient was brought to the operating room. She underwent induction of a general anesthesia. Her hip was meticulously reduced with a combination of flexion abduction and longitudinal traction. She was relatively easy to reduce. AP and cross-table lateral confirm concentric reduction. As she did have a sensation of some instability with 80 duction and flexion. 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 She was stable in her hip abduction brace. Complications: none Post-operative Condition: stable Disposition: observation Plan for aftercare: She will continue in her hip AB duction brace and will be gotten out of bed she can be weight-bearing as tolerated on the left lower extremity. Anticipate discharge to home probably tomorrow morning when she has been up with nursing and is stable for discharge to home.
--- NOTE | 2019-07-15 16:11 | SUR.OPER ---
Supine on padded OR bed, head on pillow, arms secured on padded arm boards at <90 degrees abduction, legs uncrossed, safety belt at thigh, tape over blanket over lower legs.
[2019-07-15] MEDS: LACTATED RINGERS 1,000 ML 125 ML IV (18:07)
[2019-07-15 19:06] LABS: Alanine Aminotransferase 12 IU/L (9-52); Albumin 3.4 g/dL (3.5-5.0); Albumin Globulin Ratio 1.1 (1.0-2.8); Alkaline Phosphatase 86 U/L (38-126); Aspartate Aminotransferase 26 IU/L (14-36); Bilirubin Total 0.4 mg/dL (0.2-1.3); Blood Urea Nitrogen 13 mg/dL (7-17); Calcium 9.2 mg/dL (8.4-10.2); Carbon Dioxide 27 mmol/L (22-32); Chloride 106 mmol/L (98-107); Estimated Glomerular Filt Rate > 60.0 mL/min (>60); Globulin 3.1 g/dL (1.7-4.1); Glucose 110 mg/dL (80-110); HEMOLYSIS < 15 (0-50); Potassium 3.8 mmol/L (3.4-5.1); Sodium 139 mmol/L (137-145); Total Protein 6.5 g/dL (6.3-8.2)
[2019-07-15 19:08] LABS: C-Reactive Protein Quant 1.4 mg/dL (<1.0)
[2019-07-15 19:30] LABS: Erythrocyte Sedimentation Rate 34 MM/HR (0-20)
[2019-07-15] MEDS: DOCUSATE 100 MG CAPSULE PO (21:06)
[2019-07-15] MEDS: ACETAMINOPHEN 325 MG TABLET 975 MG PO (21:06)
[2019-07-15] MEDS: ASPIRIN EC 81 MG TABLET PO (21:06)
--- NOTE | 2019-07-15 23:45 | PC.NURSE ---
Evening Shift Note- Patient arrived to room via bed from PACU. Patient alert and oriented and able to make needs known to staff. Admission questios completed, home medications reviewed, and physical assessement done. Patient oriented to bed and bed controls, room, lights, menu, phone, and call wilkerson/tv remote. safety measures in place. Patient agrees to call for assistance. bed alarm activated. call wilkerson and phone within reach. will continue to monitor.
[2019-07-16] MEDS: LACTATED RINGERS 1,000 ML 125 ML IV (00:42)
[2019-07-16 00:45] VITALS: BP 106/53; PULSE 78; RESP 18; TEMP 36.5; O2SAT 96
[2019-07-16] MEDS: OXYCODONE IR 5 MG TABLET PO (00:53)
[2019-07-16 04:42] VITALS: BP 107/57; PULSE 63; RESP 16; TEMP 36.3; O2SAT 96
[2019-07-16 06:15] LABS: Hematocrit 26.2 % (36-46); Hemoglobin 8.7 g/dL (12.0-16.0)
[2019-07-16] MEDS: LEVOTHYROXINE 75 MCG TABLET PO (06:50)
[2019-07-16 08:00] VITALS: BP 125/63; PULSE 66; RESP 18; TEMP 36.6; O2SAT 98
[2019-07-16] MEDS: hydroCHLOROthiazide 12.5 MG CAPSULE PO (08:40)
[2019-07-16] MEDS: DOCUSATE 100 MG CAPSULE PO (08:42)
[2019-07-16] MEDS: ASPIRIN EC 81 MG TABLET PO (08:42)
[2019-07-16] MEDS: LISINOPRIL 10 MG TABLET PO (08:42)
[2019-07-16] MEDS: ACETAMINOPHEN 325 MG TABLET 975 MG PO (08:43)
[2019-07-16 09:40] VITALS: PULSE 64; RESP 14; O2SAT 98
--- NOTE | 2019-07-16 11:37 | CM.DANOTE ---
Discharge Planning/Care Management DCP: assessment: case received and alerted by MONA Ricks that Dr. Baer and ortho RG Huggins were here to see pt and discharging her back to her home setting. Met then with pt and with RG Huggins. Reintroduced self and role. 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 Both confirm that pt is doing well and can d/c back home today. PT Nancy is working with pt now. [facility] orders are obtained and [facility] is alerted via on referral cell that pt will d[facility]c today[facility]. Pt continues to use her L hip brace. She says her friend Gina has been staying with her and just went home a couple days ago. She lives just down the street and can stay again if need be.\ Pt says she is very pleased to finally be back home and does feel comfortable with the d/c for today. P: home as planned. [facility] to resume. Advanced directive, confirm from FAMILY Start: 07/15/19 18:21 Freq: Q24H Status: Active Protocol: Document 07/15/19 18:21 AGW (Rec: 07/15/19 23:03 AGW [id number]) Advance Directive, confirm on record Time 21:00 Person contacted no one to oask Copy received No CM Discharge Assessment Start: 07/16/19 11:31 Freq: Status: Active Protocol: Document 07/16/19 11:31 ITV (Rec: 07/16/19 11:37 ITV [id number]) Discharge Planning Assessment Advance Directives? Yes/POLST History Provided By Patient,Medical Record Has Patient been admitted in last 30 No days? Comment Pt was d/c'd from on , returned to [facility] to continue her rehab/recovery under [facility]. 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 She readmitted 07/15 to for dislocated hip. Prior Living Arrangements House Household Members none Type of transporation used prior to Relies on Others admit Is patient alert and oriented? Yes Discharge Plan Home Transportation Arrangement Daughter is on her way to pick her up. Referrals Initiated Home Health Additional Comment resume order to [facility]/done Review Status In Process
--- NOTE | 2019-07-16 11:54 | PT.IIE ---
Surgery Performed Operation Date: 07/15/19 16:15 Actual Procedures p Closed Reduction Dislocated Hip(Left) - Linda Baer MD Surgical History (Last Reviewed 07/15/19 @ 16:00 by Linda Baer MD) History of myomectomy (Chronic) History of thyroidectomy (Inactive) Status post hip surgery (Acute 04/02/19) Status post hip surgery (Acute ~02/2019) Medical History (Last Reviewed 07/15/19 @ 16:00 by Linda Baer MD) History of cervical cancer (Acute) Hypertension (Chronic) Hypothyroid (Chronic) RLS (restless legs syndrome) (Acute) Thyroid cancer (Chronic) Physical Therapy Inpatient Evaluation/Re-Eval M1 PT/OT-IP Prior Functional Status Start: 07/16/19 10:55 Freq: NEEDED Status: Active Protocol: Document 07/16/19 11:30 AW (Rec: 07/16/19 11:54 AW [email or web address]) Medical Review Prior Functional Status Medical History Reviewed Yes Diet/Fluid Consistency Regular Communication Able to make needs known. Mobility and Gait Prior to initial surgery (February 2019) for hip fracture, pt was independent without assistive device. Since surgery, subsequent rehab, hardware failure, and dislocation x 2, pt has used a FWW for all mobility. Activities of Daily Living and IADL's Pt currently has assistance of a bath aide at home 2 days/ week. She also receives assistance from a friend/ neighbor for some cleaning and shopping tasks. Is otherwise independent with dressing, toileting. She uses a BSC at night to avoid ambulation during sleep hours. Prior Functional Level (Other details) Pt resided at [facility] for SNF rehab since initial surgery and discharged to home on 07/01/19 where she has been living with occasional assist from neighbor, Gina. She has the assistance of a bath aide on Mondays and as well as home health PT on Wednesdays and Fridays, home health OT on Tuesdays and . Social History Household Members none Living Arrangements House Number of Floors (Floors) Two Floors Number of Stairs To Enter/Railing? Newly-ramped entry, but there is one curb to navigate for home entry. Pt lives on main level with no need to use stairs inside. Home Environment Standard Height Toilet,Tub/ Shower Home Equipment Bedside Commode,Raised Toilet Seat w/Armrests,Tub Transfer Bench,Hand Held Shower,Leg Windows Systems Architect,Non Destructive Testing Scientist Additional Social History Comment Pt lives alone but has a friend/neighbor who is able to live with her temporarily if needed. M2 PT-IP Current Condition Start: 07/16/19 10:55 Freq: NEEDED Status: Active Protocol: Document 07/16/19 11:30 AW (Rec: 07/16/19 11:54 AW [email or web address]) Physical Therapy Current Condition Current Condition Evaluation Date 07/16/19 Treatment Diagnosis s/p closed reduction left hip, difficulty in walking Onset Date 07/15/19 Precautions Posterior Hip Precautions No Hip Flexion > 90 degrees,No Hip Internal Rotation,No Hip Adduction Brace hip abduction brace worn at all times except to shower Weight Bearing Status Weight Bearing Status Weight Bear as Tolerated Allowed Weight Bearing Amount (enter % WBAT LLE or #) (%) M3 PT-IP Subjective Start: 07/16/19 10:55 Freq: NEEDED Status: Active Protocol: Document 07/16/19 11:30 AW (Rec: 07/16/19 11:54 AW [email or web address]) Subjective Physical Therapy Visit Type Type Initial Evaluation Visit Start Time 11:05 Visit Stop Time 11:27 Total Visit Minutes 22 Physical Therapy Visit Comments Patient Comments Pt has not walked since surgery but is ready to try Patient Goals Pt hopes to return home M4 PT-IP Mobility and Gait Start: 07/16/19 10:55 Freq: NEEDED Status: Active Protocol: Document 07/16/19 11:30 AW (Rec: 07/16/19 11:54 AW [email or web address]) PT-Bed Mobility Assessment Supine to Sit Supine to Sit Standby Assistance Sit to Supine Sit to Supine Standby Assistance Scooting Scooting to Edge of Bed Standby Assistance PT-Transfer Assessment Sit to and From Stand Sit to and from Stand Standby Assistance Equipment Transfer Assistive Device Gait Belt,Front Wheeled Walker Orthotic/Prosthetic Devices or Brace: Yes Transfers Transfer Destination Bed Transfer Technique pt ambulated with FWW Transfer Ability Level of Assist Standby Assistance Comments Mobility Comments Pt required no more than SBA for transfers. No verbal cues needed to maintain hip precautions. Gait Assessment Gait Gait Assistance Required: Standby Assistance Distance (Feet) 75 Able to Maintain Weight Bearing Status Yes During Gait Assistive Devices Assistive Device Gait Belt,Front Wheeled Walker Orthotic/Prosthetic Devices or Brace: Yes Gait Deviations General Gait Pattern Antalgic,Decreased Stride Length,Decreased Feet Clearance,Flexed Trunk,Step-to Gait Factors Limiting Gait Function Factors Limiting Gait Function Decreased Strength,Limited Range of Motion,Pain,Poor Safety Awareness Comments Gait Comments Pt ambulated 75 feet SBA using FWW and abduction brace. Gait is antalgic, requiring extra time. Pt encouraged not to nogueira any movement and to think through strategies to maintain posterior hip precautions before moving. Stair Climbing Assessment Evaluation Level of Assist On Stairs Standby Assistance Devices Stair Climbing Assistive Devices Front Wheel Walker Technique/Endurance Stair Climbing Direction Ascend and Descend Stair Climbing Technique Step to Step Number of Steps Climbed 1 Query Text: Stair Climbing Set # Repetitions (reps) 1 Comments Stair Climbing Comments Pt able to negotiate curb using FWW SBA M5 PT-IP Objective Assessments Start: 07/16/19 10:55 Freq: NEEDED Status: Active Protocol: Document 07/16/19 11:30 AW (Rec: 07/16/19 11:54 AW [email or web address]) Orientation Orientation/Cognition Level of Alertness Alert Orientation Name,Month,Place,Situation Language Function Ability No Deficits Noted Safety Awareness Decreased Safety Awareness Memory Description Short Term Impaired Comments Pt with recurrent dislocation of prosthesis due to decreased safety awareness regarding hip precautions. Gross Range of Motion Upper Extremity ROM Assessment Within Functional Limits Lower Extremity ROM Assessment Left Impaired Strength Upper Extremity Strength Assessment Within Functional Limits Lower Extremity Strength Assessment Left Impaired Coordination Assessment Gross Coordination Gross Coordination WNL Sensation Assessment Sensation Gross Sensation WNL M6 PT-IP Treatment Start: 07/16/19 10:55 Freq: NEEDED Status: Active Protocol: Document 07/16/19 11:30 AW (Rec: 07/16/19 11:54 AW [email or web address]) Physical Therapy Treatment Education Brace Education Donning,[place],Patient Other Treatments Other Treatment Performed Pt has been using the abduction brace real time analyst for over a month. She is comfortable donning and doffing. She wears the brace at all times except for bathing. M7 PT-IP Assessment and Plan Start: 07/16/19 10:55 Freq: NEEDED Status: Active Protocol: Document 07/16/19 11:30 AW (Rec: 07/16/19 11:54 AW [email or web address]) PT Summary Assessment and Plan Potential Rehabilitation Potential Fair Status of Condition at Evaluation Stable Summary Impairments Pain,Strength,Bed Mobility, Transfers,Gait,Activity Tolerance Assessment Summary Pt is a 73 yo woman seen for PT evaluation on POD1 following closed reduction of dislocated left hip prosthesis . She dislocated her hip while transferring into the tub using a transfer bench and leg sixth grade teacher. She acknowledges she bent too far forward while using the leg sixth grade teacher. This admission represents her third or fourth dislocation. At this evaluation, pt is able to list all her hip precautions and is comfortable with adjusting her abduction brace. She was able to verbally strategize and to execute bed mobility, transfers, and stair navigation with emphasis on maintaining posterior hip precautions, requiring no verbal cues during performance . PT recommends discharge back to home with resumption of home health services. Also recommend friend move back in with pt temporarily to assist as needed for increased support if possible. Frequency of Treatment Frequency Of Treatment Discharge Discharge Recommendations PT Discharge Recommendations Home with Assistance,Home Health
[2019-07-16 12:00] VITALS: BP 105/58; PULSE 60; RESP 18; TEMP 36.4; O2SAT 100
--- NOTE | 2019-07-16 12:41 | PC.NURSE ---
Day shift: Pt left unit at approx 1245. Paperwork signed and all questions answered. Pt has all personal belongings. Pt has MD scrips. Taken to private car in by student RN. Car driven by Pt's daughter.
== END 2019-07-16 12:46 | disposition home or self-care (01) ==
LOC: ED 15:09 → AC 15:31
PROVIDERS: Admitting Provider Orthopaedic Surgery; Emergency Provider Emergency Medicine; Family Provider Physician Assistant; PCP Physician Assistant; Visit Provider Orthopaedic Surgery
PROC: (CPT 27266; principal; 2019-07-15 16:15)
DX: M24.452 Recurrent dislocation, left hip (principal); M25.552 Pain in left hip; I10 Essential (primary) hypertension; E03.9 Hypothyroidism, unspecified; Z96.642 Presence of left artificial hip joint
CPT/HCPCS: 27266; 27265; 36415; 72170; 73502; 73503; 80053; 85014; 85018; 85651; 86140; 94760; 94770; 96361; 96374; 96376; 97162; 99152; 99283; 99285; 99291; G0378; J0330; J2270; J2405; J2704; J3010

== ENCOUNTER → 2019-10-21 12:35 | Outpatient (CLI) | payer OTHER, SELFPAY ==
[2019-05-17 13:45] VITALS: PULSE 119; RESP 10; O2SAT 99
[2019-07-15 18:17] VITALS: BMI 27.8
== END ==
PROVIDERS: PCP Physician Assistant; Visit Provider Physician Assistant
DX: M85.851 Other specified disorders of bone density and structure, right thigh (principal); Z78.0 Asymptomatic menopausal state; Z96.642 Presence of left artificial hip joint; Z87.81 Personal history of (healed) traumatic fracture
CPT/HCPCS: 77080; 77081

== ENCOUNTER 2019-11-13 12:02 | Emergency (ER) | payer OTHER, SELFPAY ==
[2019-05-17 13:45] VITALS: PULSE 119; RESP 10; O2SAT 99
[2019-07-15 18:17] VITALS: BMI 27.8
[2019-11-13 12:11] VITALS: BP 191/81; PULSE 61; RESP 18; TEMP 36.8; O2SAT 100
--- NOTE | 2019-11-13 12:16 | DI.RAD.S_ITS ---
PROCEDURE: XR LUMBAR SPINE 2-3V INDICATIONS: fall TECHNIQUE: 3 views of the lumbar spine were acquired. COMPARISON: [facility], , -SPINE 2-3 VIEWS, 08/27/2013, 19:40. FINDINGS: Bones: There are 5 lumbar-type vertebral bodies. Rudimentary ribs at the T12 level are present. The lowest intervertebral disk space is designated as L5-S1. The vertebral body heights are well-maintained without evidence to suggest an acute compression fracture. The bone mineralization is within normal limits. Postoperative changes of left hip are compatible with a previous left hip arthroplasty, not adequately characterized. Moderate to severe multilevel degenerative changes of the lumbar spine are similar to the prior study. Multilevel disc loss, endplate sclerosis, disc osteophytes, and facet arthrosis are present. These findings are more prominent involving the lower lumbar levels. Moderate degenerative changes of the sacroiliac joints are present. Soft tissues: Rounded lucencies overlying the right abdomen probably is overlying the patient. soft tissues of the imaged abdomen and pelvis are within normal limits. IMPRESSION: 1. No acute lumbar fractures are appreciated. 2. Moderate to severe degenerative changes of the lumbar spine are similar to the prior study. Dictated by: Soren Kim M.D. on 11/13/2019 at 11:48 Approved by: Soren Kim M.D. on 11/13/2019 at 11:51
--- NOTE | 2019-11-13 15:48 | DI.CT.S_ITS ---
PROCEDURE: CT LUMBAR SPINE WO CON INDICATIONS: Severe pain post fall on lumbar spine r/o occult fx TECHNIQUE: Noncontrast 3 mm thick sections acquired from the T12 level to the sacrum. Sagittal and coronal reformats were constructed. For radiation dose reduction, the following was used: automated exposure control. COMPARISON: [facility], CR, XR LUMBAR SPINE 2-3V, 11/13/2019, 12:14. FINDINGS: Image quality: Excellent. Bones: There is abnormal bony alignment, mild convex leftward scoliosis with reactive degenerative change at the vertebral bodies of L1, L2 and L3.. No acute vertebral body compression fractures. No suspicious lytic or blastic bony lesions. Central spinal caliber is of normal overall caliber. No pars defects. Soft tissues: No retroperitoneal masses or hematomas. Visualized aorta is normal in caliber. IMPRESSION: No fracture found. Chronic degenerative disc disease greater on the right than the left associated with convex leftward mild scoliosis previously present. Dictated by: Tim Rojo M.D. on 11/13/2019 at 16:49 Approved by: Tim Rojo M.D. on 11/13/2019 at 16:50
--- NOTE | 2019-11-13 16:14 | PC.NURSE ---
pt arrived with back brace.
--- NOTE | 2019-11-13 16:17 | ED_ITS ---
HPI - Fall <JESS JuárezP - Last Filed: 11/13/19 21:54> General Chief Complaint: Fall Stated Complaint: fall, back pain Time Seen by Provider: 11/13/19 15:36 Source: patient Mode of arrival: Ambulatory History of Present Illness HPI Narrative: 74-year-old female with a history of multiple hip surgeries in [facility] (last dislocation June 2019), presents emergency department for lower back pain after fall yesterday. She states she was cleaning the stove in the kitchen after an extensive physical therapy session when she started to feel dizzy. She states she believes this is due to not drinking enough liquids, previous physical therapy session earlier that day, and being too tired not taking a rest. However, she went to grab the walker and ended up slipping and falling backwards landing on her lumbar back on top of her walker. She reports increased pain to the area, she states the pain is ?so severe that it made me feel nauseous ?. She was able to ambulate wearing the brace that she usually wears to help with her hips. However, she states the pain is worse with movement, palpation, and pressure to the area. She reports it is a dull aching 8/10. She denies any alleviating factors. Patient denies any other symptoms such as loss of bowel or bladder control, numbness or tingling, fevers, chills, nausea, vomiting, abdominal pain, chest pain, shortness of breath, head trauma, neck pain, or other concerns. Related Data Home Medications Medication Instructions Recorded Confirmed aspirin 325 mg PO PRN PRN 07/15/19 11/05/19 docusate sodium 50 mg capsule 50 mg PO DAILY 11/05/19 11/05/19 Previous Rx's Medication Instructions Recorded levothyroxine 75 mcg tablet 75 mcg PO DAILY #90 tab 02/13/19 oxycodone 5 mg PO Q4HR PRN #40 tab 07/16/19 hydrochlorothiazide 12.5 mg capsule See Rx Instructions PO DAILY #60 08/07/19 cap oxybutynin chloride 5 mg tablet 5 mg PO BID-TID PRN #60 tab 08/07/19 lisinopril 10 1 tab PO DAILY #90 tab 09/24/19 mg-hydrochlorothiazide 12.5 mg tablet alendronate 70 mg tablet 70 mg PO QWEEK #12 tab 11/05/19 Allergies Allergy/AdvReac Type Severity Reaction Status Date / Time Mvrjbrk-Nwq-Jdr Reductase AdvReac Intermediate myalgias, Verified 11/05/19 11:47 Inhibitor tinnitus [PAPRBEA-OAJ-HAP REDUCTASE INHIBITOR] Review of Systems <ANDRES Juárez - Last Filed: 11/13/19 21:54> Review of Systems Narrative: REVIEW OF SYSTEMS: GENERAL: Denies fever or chills. HENT: No head trauma. EYES: No double vision or vision loss. CARDIOVASCULAR: No chest pain or syncope. RESPIRATORY: No shortness of breath or cough. GASTROINTESTINAL: No nausea, vomiting, diarrhea, or constipation. GENITOURINARY: No flank pain or dysuria. MUSCULOSKELETAL: Complains of lumbar back pain, see HPI. INTEGUMENTARY: No rash, lesions, or pruritus. NEURO: No numbness, tingling. PSYCH: No behavior or mood changes. Patient History <ANDRES Juárez - Last Filed: 11/13/19 21:54> Medical History History of cervical cancer (Acute) Hypertension (Chronic) Hypothyroid (Chronic) RLS (restless legs syndrome) (Acute) Thyroid cancer (Chronic) Surgical History History of myomectomy (Chronic) History of thyroidectomy (Inactive) Status post hip surgery (Acute 04/02/19) Status post hip surgery (Acute ~02/2019) Family History Father Alcoholism Smoker Heart disease Stroke Mother No problems noted. Sister No problems noted. Social History household members: none lives independently: Yes Smoking Status: Former smoker Tobacco: How many years used: 42 second hand exposure: No alcohol intake: current substance use type: marijuana additional social history: Reports smoking cigarettes from age 14 to age 56, 0.5 to 1 pack per day. Reports to drinking 2 glasses of wine daily and 1-2 shots of Vodka prior to bedtime. Notes this to be a lifelong practice. Smoking Status: Former smoker alcohol intake frequency: a few times a week Substance Use Type: marijuana Exam <ANDRES Juárez - Last Filed: 11/13/19 21:54> Initial Vital Signs Initial Vital Signs: Vital Signs Temperature 98.2 F 11/13/19 12:11 Pulse Rate 61 11/13/19 12:11 Respiratory Rate 18 11/13/19 12:11 Blood Pressure 191/81 H 11/13/19 12:11 Pulse Oximetry 100 11/13/19 12:11 PHYSICAL EXAMINATION: GENERAL: Well groomed, alert, and cooperative. Answers questions promptly and appropriately. Vital signs noted. HENT: Normocephalic, atraumatic. EYES: PERRLA, EOMIs, symmetrical, sclera white, no periorbital swelling. NECK: No spinal tenderness, full range of motion of neck. CARDIOVASCULAR: S1 and S2 sounds normal. Regular rate and rhythm, no murmurs, clicks, or bruits. No pedal edema. RESPIRATORY: Normal respiratory rate, trachea midline, airway patent. No stridor, nasal flaring or accessory muscle use. Lungs are clear in all [place]. MUSCULOSKELETAL: Significant tenderness to palpation of lumbar spine, no notable deformities. No erythema, ecchymosis, or rashes. Normal gait and coordination. Equal tone and mass bilaterally. Patient has full strength against resistance to upper and lower extremities, equal damage inside adjuster strength. EXTREMITIES: CMS intact. Pedal pulses 2+ intact bilaterally. SKIN: Warm, dry, soft, appropriate color for ethnicity. No lesions, rashes, or wounds. NEURO: Alert and Oriented X 3. No sensory deficits. Equal light touch sensation to upper and lower extremities. PSYCH: Appropriate affect and mood. <Charbel Haynes MD - Last Filed: 11/13/19 21:57> Initial Vital Signs Initial Vital Signs: Vital Signs Temperature 98.2 F 11/13/19 12:11 Pulse Rate 61 11/13/19 12:11 Respiratory Rate 18 11/13/19 12:11 Blood Pressure 191/81 H 11/13/19 12:11 Pulse Oximetry 100 11/13/19 12:11 Scores <ANDRES Juárez - Last Filed: 11/13/19 21:54> Nexus Score for C-Spine Focal Neurologic deficit present: No Midline spinal tenderness present: No Altered level of conciousness present: No Intoxication present: No Distracting Injury Present: No Nexus Criteria for C-spine: 0 Course <ANDRES Juárez - Last Filed: 11/13/19 21:54> Course Course Narrative: After imaging and medication, patient was able to ambulate without dizziness or severe back pain. She was discharged with strict follow-up precautions. Orders Ordered: ED Orders 11/13/19 15:48 CT lumbar spine wo con Stat 11/13/19 16:17 Complete Blood Count AUTO DIFF Stat Comprehensive Metabolic Panel Stat Troponin & CK Cardiac Panel Stat 11/13/19 16:18 EKG-12 Lead Stat Discontinued Medications Oxycodone/Acetaminophen (Percocet 5/325) 1 tab PO NOW ONE Stop: 11/13/19 17:57 Last Admin: 11/13/19 18:24 Dose: 1 tab Documented by: TEAGAN Consultations Consultation #1: Patient staffed with Dr. Haynes. Vital Signs Vital signs: Vital Signs - 8 hr 11/13/19 18:36 Pulse Rate 67 Respiratory Rate 20 Blood Pressure 205/85 H <Charbel Haynes MD - Last Filed: 11/13/19 21:57> Orders Ordered: ED Orders 11/13/19 15:48 CT lumbar spine wo con Stat 11/13/19 16:17 Complete Blood Count AUTO DIFF Stat Comprehensive Metabolic Panel Stat Troponin & CK Cardiac Panel Stat 11/13/19 16:18 EKG-12 Lead Stat Discontinued Medications Oxycodone/Acetaminophen (Percocet 5/325) 1 tab PO NOW ONE Stop: 11/13/19 17:57 Last Admin: 11/13/19 18:24 Dose: 1 tab Documented by: TEAGAN Vital Signs Vital signs: Vital Signs - 8 hr 11/13/19 18:36 Pulse Rate 67 Respiratory Rate 20 Blood Pressure 205/85 H MDM - Fall <ANDRES Juárez - Last Filed: 11/13/19 21:54> Medical Records Attestation: I reviewed the patient's medical records. Lab Data Attestation: I reviewed the patient's lab results. Result diagrams: 11/13/19 16:17 11/13/19 16:17 Labs: Lab Results 11/13/19 11/13/19 Range/Units 16:17 16:17 WBC 6.8 (4.5-11.0) X10^3/uL RBC 4.43 (4.0-5.2) X10^6/uL Hgb 13.3 (12.0-16.0) g/dL Hct 39.6 (36-46) % MCV 89.3 (80-100) fL MCH 30.0 (26-34) PG MCHC 33.6 (30-36) % RDW 17.8 H (11.6-14.8) % Plt Count 231 (150-400) X10^3/uL Neut % (Auto) 66.4 (50-75) % Lymph % (Auto) 23.3 L (25-40) % [place] % (Auto) 7.1 (3-14) % Eos % (Auto) 1.9 L (2-4) % Baso % (Auto) 1.3 (0-2) % Neut # (Auto) 4500 (9996-8315) /uL Lymph # (Auto) 1600 (1061-2440) /uL [place] # (Auto) 500 (0-900) /uL Eos # (Auto) 100 (0-450) /uL Baso # (Auto) 100 (0-100) /uL Sodium 138 (137-145) mmol/L Potassium 3.7 (3.4-5.1) mmol/L Chloride 102 (98-107) mmol/L Carbon Dioxide 27 (22-32) mmol/L BUN 13 (7-17) mg/dL Creatinine 0.50 L (0.52-1.04) mg/dL Estimated GFR > 60.0 (>60) mL/min BUN/Creatinine Ratio 26.0 H (6-22) Glucose 91 (80-110) mg/dL Calcium 9.3 (8.4-10.2) mg/dL Total Bilirubin 0.7 (0.2-1.3) mg/dL AST 29 (14-36) IU/L ALT 14 (<35) IU/L Alkaline Phosphatase 94 (38-126) U/L Total Creatine Kinase 98 (30-135) U/L CK-MB (CK-2) TNP CK-MB (CK-2) Rel Index TNP Troponin I < 0.012 (0.01-0.034) ng/mL Total Protein 7.6 (6.3-8.2) g/dL Albumin 4.0 (3.5-5.0) g/dL Globulin 3.6 (1.7-4.1) g/dL Albumin/Globulin Ratio 1.1 (1.0-2.8) Imaging Data Lumbar Xray: Radiologist's Impression: [address] [address] XRay Report Signed Patient: Avery Singh KMR#: [id number] : 6Acct:[id number] Age/Sex: 74 / FDate of Service: 11/13/19 Loc: ED Accession Number: [id number] Procedure: XR lumbar spine 2-3V Ordering Provider: Charbel Haynes MD PROCEDURE: XR LUMBAR SPINE 2-3V INDICATIONS: fall TECHNIQUE: 3 views of the lumbar spine were acquired. COMPARISON: [facility], , L-SPINE 2-3 VIEWS, 08/27/2013, 19:40. FINDINGS: Bones: There are 5 lumbar-type vertebral bodies. Rudimentary ribs at the T12 level are present. The lowest intervertebral disk space is designated as L5-S1. The vertebral body heights are well-maintained without evidence to suggest an acute compression fracture. The bone mineralization is within normal limits. Postoperative changes of left hip are compatible with a previous left hip arthroplasty, not adequately characterized. Moderate to severe multilevel degenerative changes of the lumbar spine are si milar to the prior study. Multilevel disc loss, endplate sclerosis, disc osteophytes, and facet arthrosis are present. These findings are more prominent involving the lower lumbar levels. Moderate degenerative changes of the sacroiliac joints are present. Soft tissues: Rounded lucencies overlying the right abdomen probably is overlying the patient. soft tissues of the imaged abdomen and pelvis are within normal limits. IMPRESSION: 1. No acute lumbar fractures are appreciated. 2. Moderate to severe degenerative changes of the lumbar spine are similar to the prior study. Dictated by: Soren Kim M.D. on 11/13/2019 at 11:48 Approved by: Soren Kim M.D. on 11/13/2019 at 11:[address]: Radiologist's Impression: [address] [address] [address] Scan Report Signed Patient: Avery Singh KMR#: [id number] : 6Acct:[id number] Age/Sex: 74 / FDate of Service: 11/13/19 Loc: ED Accession Number: [id number] Procedure: CT lumbar spine wo con Ordering Provider: Nakia Victoria PROCEDURE: CT LUMBAR SPINE WO CON INDICATIONS: Severe pain post fall on lumbar spine r/o occult fx TECHNIQUE: Noncontrast 3 mm thick sections acquired from the T12 level to the sacrum. Sagittal and coronal reformats were constructed. For radiation dose reduction, the following was used: automated exposure control. COMPARISON: [facility], CR, XR LUMBAR SPINE 2-3V, 11/13/2019, 12:14. FINDINGS: Image quality: Excellent. Bones: There is abnormal bony alignment, mild convex leftward scoliosis with reactive degenerative change at the vertebral bodies of L1, L2 and L3.. No acute vertebral body compression fractures. No suspicious lytic or blastic bony lesions. Central spinal caliber is of normal overall caliber. No pars defects. Soft tissues: No retroperitoneal masses or hematomas. Visualized aorta is normal in caliber. IMPRESSION: No fracture found. Chronic degenerative disc disease greater on the right than the left associated with convex leftward mild scoliosis previously present. Dictated by: Tim Rojo M.D. on 11/13/2019 at 16:49 Approved by: Tim Rojo M.D. on 11/13/2019 at 16:50 ECG Data Interpretation: Sinus rhythm, rate 66, [place] interval 112, QTC 437. No ST elevation or ST depression. No T-wave abnormality, no ectopy. EKG was given to Dr. Haynes per protocol. [facility] Narrative Medical decision making narrative: 74-year-old female presenting to the emergency department after falling in her lumbar spine. Increased concern for fracture due to mechanism of injury and fall. However, x-ray and CT are negative for any acute changes. Patient had laboratory work, EKG, and x-ray ordered as patient stated she felt dizzy before the fall. However, these tests were non-remarkable. I suspect this is less likely cardiac etiology due to negative troponin, normal EKG, and the fact that symptoms happened well over 12 hours ago. Patient was also able to ambulate without reoccurring symptoms. Appears patient may have been symptomatic due to pain, vagal response, and stating that she was very tired and working on cleaning the stove. Less likely other concerns such as orthostatic hypotension or anemia due to lack of changes and laboratory work or symptoms with ambulation trial. Strict return precautions given and follow-up instructions discussed. <Charbel Haynes MD - Last Filed: 11/13/19 21:57> Lab Data Labs: Lab Results 11/13/19 11/13/19 Range/Units 16:17 16:17 WBC 6.8 (4.5-11.0) X10^3/uL RBC 4.43 (4.0-5.2) X10^6/uL Hgb 13.3 (12.0-16.0) g/dL Hct 39.6 (36-46) % MCV 89.3 (80-100) fL MCH 30.0 (26-34) PG MCHC 33.6 (30-36) % RDW 17.8 H (11.6-14.8) % Plt Count 231 (150-400) X10^3/uL Neut % (Auto) 66.4 (50-75) % Lymph % (Auto) 23.3 L (25-40) % [place] % (Auto) 7.1 (3-14) % Eos % (Auto) 1.9 L (2-4) % Baso % (Auto) 1.3 (0-2) % Neut # (Auto) 4500 (3272-6467) /uL Lymph # (Auto) 1600 (8868-3027) /uL [place] # (Auto) 500 (0-900) /uL Eos # (Auto) 100 (0-450) /uL Baso # (Auto) 100 (0-100) /uL Sodium 138 (137-145) mmol/L Potassium 3.7 (3.4-5.1) mmol/L Chloride 102 (98-107) mmol/L Carbon Dioxide 27 (22-32) mmol/L BUN 13 (7-17) mg/dL Creatinine 0.50 L (0.52-1.04) mg/dL Estimated GFR > 60.0 (>60) mL/min BUN/Creatinine Ratio 26.0 H (6-22) Glucose 91 (80-110) mg/dL Calcium 9.3 (8.4-10.2) mg/dL Total Bilirubin 0.7 (0.2-1.3) mg/dL AST 29 (14-36) IU/L ALT 14 (<35) IU/L Alkaline Phosphatase 94 (38-126) U/L Total Creatine Kinase 98 (30-135) U/L CK-MB (CK-2) TNP CK-MB (CK-2) Rel Index TNP Troponin I < 0.012 (0.01-0.034) ng/mL Total Protein 7.6 (6.3-8.2) g/dL Albumin 4.0 (3.5-5.0) g/dL Globulin 3.6 (1.7-4.1) g/dL Albumin/Globulin Ratio 1.1 (1.0-2.8) Discharge Plan Departure Patient Disposition: Home Clinical Impression: Back pain Qualifiers: Back pain location: low back pain Chronicity: acute Back pain laterality: midline Sciatica presence: without sciatica Qualified Code(s): M54.5 - Low back pain Discharge Date/Time: 11/13/19 18:37 Instructions: How to Prevent Falls, DI for Dizziness-Nonvertigo Activity Restrictions/Additional Instructions: Thank you for entrusting me with your care today. As discussed, your images are negative for any fractures. Your lab work and EKG within normal limits. Please follow up with your primary care provider in 1-2 weeks for further evaluation. Return to the emergency department for new or worsening symptoms syncope, dizziness, chest pain, shortness of breath, loss of bowel or bladder control, seizures, or other concerns. Prescriptions: No Action levothyroxine [Synthroid] 75 mcg tablet 75 mcg PO DAILY Qty: 90 RF: 3 lisinopril-hydrochlorothiazide 10-12.5 mg tablet 1 tab PO DAILY Qty: 90 RF: 0 hydrochlorothiazide 12.5 mg capsule See Rx Instructions PO DAILY Qty: 60 RF: 1 oxybutynin chloride 5 mg tablet 5 mg PO BID-TID PRN (Reason: bladder spasms) Qty: 60 RF: 1 Stool Softener 50 mg capsule 50 mg PO DAILY RF: 0 alendronate 70 mg tablet 70 mg PO QWEEK Qty: 12 RF: 3 aspirin 325 mg Tablet 325 mg PO PRN PRN (Reason: pain) RF: 0 oxycodone 5 mg tablet 5 mg PO Q4HR PRN (Reason: pain) Qty: 40 RF: 0 Referrals: Caprice Burrows PA-C [Primary Care Provider] -
[2019-11-13 16:26] LABS: Add Manual Diff / Slide Review NO; Basophils Absolute Auto 100 /uL (0-100); Basophils Percent Auto 1.3 % (0-2); Eosinophils Absolute Auto 100 /uL (0-450); Eosinophils Percent Auto 1.9 % (2-4); Hematocrit 39.6 % (36-46); Hemoglobin 13.3 g/dL (12.0-16.0); Lymphocytes Absolute Auto 1600 /uL (1100-4500); Lymphocytes Percent Auto 23.3 % (25-40); Mean Corpuscular HGB Conc 33.6 % (30-36); Mean Corpuscular Volume 89.3 fL (80-100); Monocytes Absolute Auto 500 /uL (0-900); Monocytes Percent Auto 7.1 % (3-14); Neutrophils Absolute Auto 4500 /uL (1500-7000); Neutrophils Percent Auto 66.4 % (50-75); Platelet Count 231 X10^3/uL (150-400); Red Blood Cell Count 4.43 X10^6/uL (4.0-5.2); Red Cell Distribution Width 17.8 % (11.6-14.8); White Blood Cell Count 6.8 X10^3/uL (4.5-11.0)
[2019-11-13 16:36] LABS: Alanine Aminotransferase 14 IU/L (<35); Albumin Globulin Ratio 1.1 (1.0-2.8); Alkaline Phosphatase 94 U/L (38-126); Aspartate Aminotransferase 29 IU/L (14-36); Bilirubin Total 0.7 mg/dL (0.2-1.3); Blood Urea Nitrogen 13 mg/dL (7-17); Calcium 9.3 mg/dL (8.4-10.2); Carbon Dioxide 27 mmol/L (22-32); Chloride 102 mmol/L (98-107); Creatine Kinase 98 U/L (30-135); Estimated Glomerular Filt Rate > 60.0 mL/min (>60); Globulin 3.6 g/dL (1.7-4.1); Glucose 91 mg/dL (80-110); HEMOLYSIS < 15 (0-50); Potassium 3.7 mmol/L (3.4-5.1); Sodium 138 mmol/L (137-145); Total Protein 7.6 g/dL (6.3-8.2)
[2019-11-13 16:47] LABS: Troponin I < 0.012 ng/mL (0.01-0.034)
[2019-11-13] MEDS: OXYCODONE/ACETAMINOPHEN 5/325 TABLET 1 TAB PO (18:24)
[2019-11-13 18:36] VITALS: BP 205/85; PULSE 67; RESP 20
== END 2019-11-13 18:37 | disposition home or self-care (01) ==
PROVIDERS: Emergency Provider Nurse Practitioner; PCP Physician Assistant
DX: M54.5 Low back pain (principal); W19.XXXA Unspecified fall, initial encounter; R07.9 Chest pain, unspecified
CPT/HCPCS: 36415; 72100; 72131; 80053; 82550; 84484; 85025; 93005; 99283; 99285

== ENCOUNTER 2020-06-08 11:46 | Emergency (ER) | payer OTHER, SELFPAY ==
[2019-05-17 13:45] VITALS: PULSE 119; RESP 10; O2SAT 99
[2019-07-15 18:17] VITALS: BMI 27.8
[2020-06-08] VITALS (15 sets, daily range): BP systolic 197–234; BP diastolic 81–102; PULSE 64–91; RESP 10–19; TEMP 36.6; O2SAT 94–100
--- NOTE | 2020-06-08 12:54 | PC.NURSE ---
pt states she was sent in by new pcp for high blood pressure. pt states she was taking one pill for blood pressure, went in to a new PCP office because hers had left the area, was told to take 2 pills. Pt declined taking 2 as she was afraid it would be too much medication and would cause her to have too low of blood pressure. Pt stated she started taking 1/2 a pill instead. She has since started seeing a new PCP, Dr Siddiqui and is excited to have him as a PCP and states she feels more comfortable with him.
--- NOTE | 2020-06-08 13:42 | PC.NURSE ---
Patient reports she normally takes 10mg lisinopril/ 12.5mg HCTZ however she took 20mg/25mg this morning and still BP was highly elevated. This is abnormal for her. She reports an increase in anxiety due to medical bills.
--- NOTE | 2020-06-08 15:21 | ED.GENADULT ---
HPI - General Adult General Chief complaint: Hypertension Stated complaint: high blood pressure Time Seen by Provider: 06/08/20 14:10 Source: patient Mode of arrival: Ambulatory Limitations: no limitations History of Present Illness HPI narrative: 74-year-old woman with a history of hypertension and hypothyroidism presents with significantly elevated blood pressures with out side effects or complaints. Specifically she has no chest pain, shortness of breath, cough, fever, abdominal pain cause a nausea, vomiting, diarrhea, clouded thinking, numbness tingling or obvious neurologic deficits. She does note that she has been more stressed due to financial concerns recently and has a bit more difficulty sleeping. Related Data Home Medications Medication Instructions Recorded Confirmed aspirin 325 mg PO PRN PRN 07/15/19 06/02/20 Previous Rx's Medication Instructions Recorded levothyroxine 75 mcg tablet 75 mcg PO DAILY #90 tab 04/17/20 lisinopril 10 1 tab PO DAILY #90 tab 06/02/20 mg-hydrochlorothiazide 12.5 mg tablet lisinopril 20 mg PO DAILY #30 tab 06/08/20 Allergies Allergy/AdvReac Type Severity Reaction Status Date / Time orphenadrine AdvReac Intermediate Dizziness. Verified 06/02/20 15:06 [id number] Reductase AdvReac Intermediate myalgias, Verified 06/02/20 14:58 Inhibitor tinnitus [[id number] REDUCTASE INHIBITOR] Review of Systems Review of Systems Narrative: Remainder of review of systems including constitutional, ENT, cardiovascular, respiratory, GI, , musculoskeletal, skin, neurologic and psychiatric systems reviewed and are unremarkable except as noted in HPI. Patient History Medical History History of cervical cancer (Acute) Hypertension (Chronic) Hypothyroid (Chronic) RLS (restless legs syndrome) (Acute) Thyroid cancer (Chronic) Surgical History History of myomectomy (Chronic) History of thyroidectomy (Inactive) S/P ORIF (open reduction internal fixation) fracture (Inactive) Status post hip surgery (Acute 04/02/19) Status post hip surgery (Acute ~02/2019) Family History Father Alcoholism Smoker Heart disease Stroke Mother No problems noted. Sister No problems noted. Social History household members: none lives independently: Yes Smoking Status: Former smoker Tobacco: How many years used: 42 second hand exposure: No alcohol intake: current substance use type: marijuana additional social history: Reports smoking cigarettes from age 14 to age 56, 0.5 to 1 pack per day. Reports to drinking 2 glasses of wine daily and 1-2 shots of Vodka prior to bedtime. Notes this to be a lifelong practice. Smoking Status: Former smoker alcohol intake frequency: a few times a week Substance Use Type: marijuana Exam Narrative Exam Narrative: General: Healthy appearing, in no acute distress. Able to give a complete and coherent history. Well-nourished well-developed HEENT: Moist mucous membranes, normal sclera with reactive pupils, Neck: No JVD, supple Respiratory: Lungs are clear to auscultation, no wheezing no rales no rhonchi. Full and symmetrical air movement Cardiac: Regular rate and rhythm no murmurs no bruits Abdomen: Soft nontender good bowel tones, no flank pain Skin: Warm and dry, no rashes Neurologic: Grossly neurologically intact with no obvious asymmetries or abnormalities Extremities: No trauma, well perfused, chronic 1+ edema left slightly greater than right Psych: Cooperative, appropriate insight and affect Initial Vital Signs Initial Vital Signs: Vital Signs Pulse Rate 73 06/08/20 12:30 Respiratory Rate 13 06/08/20 12:30 Blood Pressure 214/97 H 06/08/20 12:30 Pulse Oximetry 97 06/08/20 12:30 Course Orders Ordered: ED Orders 06/08/20 12:50 Complete Blood Count AUTO DIFF Stat Comprehensive Metabolic Panel Stat Troponin I Stat 06/08/20 15:29 Urinalysis and Microscopic Stat Discontinued Medications Lisinopril (Zestril) 20 mg PO NOW ONE Stop: 06/08/20 15:30 Last Admin: 06/08/20 15:37 Dose: 20 mg Documented by: AMANDA Vital Signs Vital signs: Vital Signs - 8 hr 06/08/20 12:30 06/08/20 12:37 06/08/20 13:00 Temperature 97.9 F Pulse Rate 73 71 71 Respiratory Rate 13 18 16 Blood Pressure 214/97 H 222/102 H 217/90 H Pulse Oximetry 97 97 97 06/08/20 13:41 06/08/20 13:53 06/08/20 13:54 Temperature Pulse Rate 91 H 78 66 Respiratory Rate 19 13 10 L Blood Pressure 234/99 H 202/81 H Pulse Oximetry 100 98 98 06/08/20 14:00 06/08/20 14:30 06/08/20 15:00 Temperature Pulse Rate 64 76 74 Respiratory Rate 12 12 12 Blood Pressure 197/83 H 212/89 H 205/85 H Pulse Oximetry 97 94 95 Medical Decision Making Medical Records Medical records reviewed: Yes I reviewed the patient's medical records. Lab Data Lab results reviewed: Yes I reviewed the patient's lab results. Result diagrams: 06/08/20 12:50 06/08/20 12:50 Labs: Lab Results 06/08/20 06/08/20 Range/Units 12:50 12:50 WBC 6.6 (4.5-11.0) X10^3/uL RBC 4.15 (4.0-5.2) X10^6/uL Hgb 13.8 (12.0-16.0) g/dL Hct 40.6 (36-46) % MCV 97.8 (80-100) fL MCH 33.2 (26-34) PG MCHC 33.9 (30-36) % RDW 14.9 H (11.6-14.8) % Plt Count 226 (150-400) X10^3/uL Neut % (Auto) 54.7 (50-75) % Lymph % (Auto) 33.6 (25-40) % [place] % (Auto) 5.8 (3-14) % Eos % (Auto) 3.9 (2-4) % Baso % (Auto) 2.0 (0-2) % Neut # (Auto) 3600 (8016-8332) /uL Lymph # (Auto) 2200 (1140-7759) /uL [place] # (Auto) 400 (0-900) /uL Eos # (Auto) 300 (0-450) /uL Baso # (Auto) 100 (0-100) /uL Sodium 137 (137-145) mmol/L Potassium 3.9 (3.4-5.1) mmol/L Chloride 105 (98-107) mmol/L Carbon Dioxide 27 (22-32) mmol/L BUN 12 (7-17) mg/dL Creatinine 0.54 (0.52-1.04) mg/dL Estimated GFR > 60.0 (>60) mL/min BUN/Creatinine Ratio 22.2 H (6-22) Glucose 93 (80-110) mg/dL Calcium 8.9 (8.4-10.2) mg/dL Total Bilirubin 0.6 (0.2-1.3) mg/dL AST 34 (14-36) IU/L ALT 14 (<35) IU/L Alkaline Phosphatase 60 (38-126) U/L Troponin I < 0.012 (0.01-0.034) ng/mL Total Protein 7.4 (6.3-8.2) g/dL Albumin 3.9 (3.5-5.0) g/dL Globulin 3.5 (1.7-4.1) g/dL Albumin/Globulin Ratio 1.1 (1.0-2.8) Urine Dip Bedside Urine Glucose Negative Bedside Urine Bilirubin - Negative Bedside Urine Ketone - Negative Urine Specific [place] 1.015 Bedside Urine Occult Blood - Negative Bedside Urine pH 7.5 Bedside Urine Protein - Negative Bedside Urine Urobilinogen - Negative Bedside Urine Nitrite - Negative Bedside Urine Leukocytes - Negative Esterase Point of care testing: Urine Dip Bedside Urine Glucose Negative Bedside Urine Bilirubin - Negative Bedside Urine Ketone - Negative Urine Specific [place] 1.015 Bedside Urine Occult Blood - Negative Bedside Urine pH 7.5 Bedside Urine Protein - Negative Bedside Urine Urobilinogen - Negative Bedside Urine Nitrite - Negative Bedside Urine Leukocytes - Negative Esterase MDM Narrative Medical decision making narrative: Patient is noted asymptomatic hypertension over the last few days which is unusual for her. She states that she typically runs in the 130 systolic range with 10 mg of lisinopril and 12.5 mg hydrochlorothiazide. Was recently seen in the office and that dose was doubled which she has been taking for 1-2 days. She comes in with blood pressures in the 200-220 range systolic. Workup is negative for acute life-threatening complications of elevated blood pressures. Recommended a 2nd dose of 20 mg of lisinopril in the evening if blood pressures are elevated. Shared he has follow-up scheduled with her primary care physician in 1-2 weeks. She will keep track of blood pressures so that they can have a reasonable discussion as to medical dosing and management in that time frame. She is safe for home discharge Discharge Plan Departure Patient Disposition: Home Clinical Impression: Essential hypertension Instructions: DI for High Blood Pressure Activity Restrictions/Additional Instructions: Thank you for coming in today Your blood pressure is elevated however there are no secondary signs of immediate life-threatening issues. I am going to suggest that you increase your morning dose of blood pressure medications to a full tablet of the lisinopril 20 mg/hydrochlorothiazide 25 mg. For the next few days please check your blood pressure 2 to 3 hours after this does in keep track of that to review with Dr. Siddiqui. In the evening please recheck your blood pressure know if you find that you are consistently over 160/85, then please add an additional 20 mg of lisinopril. I have given you a prescription for the lisinopril only 20 mg dose. 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 I hope you feel better Prescriptions: New lisinopril 20 mg tablet 20 mg PO DAILY Qty: 30 RF: 0 No Action levothyroxine [Synthroid] 75 mcg tablet 75 mcg PO DAILY Qty: 90 RF: 0 lisinopril-hydrochlorothiazide 10-12.5 mg tablet 1 tab PO DAILY Qty: 90 RF: 3 aspirin 325 mg Tablet 325 mg PO PRN PRN (Reason: pain) RF: 0 Referrals: Charbel Siddiqui MD [Primary Care Provider] -
[2020-06-08 15:34] LABS: Add Manual Diff / Slide Review NO; Basophils Absolute Auto 100 /uL (0-100); Eosinophils Absolute Auto 300 /uL (0-450); Eosinophils Percent Auto 3.9 % (2-4); Hematocrit 40.6 % (36-46); Hemoglobin 13.8 g/dL (12.0-16.0); Lymphocytes Absolute Auto 2200 /uL (1100-4500); Lymphocytes Percent Auto 33.6 % (25-40); Mean Corpuscular HGB Conc 33.9 % (30-36); Mean Corpuscular Hemoglobin 33.2 PG (26-34); Mean Corpuscular Volume 97.8 fL (80-100); Monocytes Absolute Auto 400 /uL (0-900); Monocytes Percent Auto 5.8 % (3-14); Neutrophils Absolute Auto 3600 /uL (1500-7000); Neutrophils Percent Auto 54.7 % (50-75); Platelet Count 226 X10^3/uL (150-400); Red Blood Cell Count 4.15 X10^6/uL (4.0-5.2); Red Cell Distribution Width 14.9 % (11.6-14.8); White Blood Cell Count 6.6 X10^3/uL (4.5-11.0)
[2020-06-08] MEDS: lisinopriL 20 MG TABLET PO (15:37)
[2020-06-08 15:40] LABS: Alanine Aminotransferase 14 IU/L (<35); Albumin 3.9 g/dL (3.5-5.0); Albumin Globulin Ratio 1.1 (1.0-2.8); Alkaline Phosphatase 60 U/L (38-126); Aspartate Aminotransferase 34 IU/L (14-36); BUN Creatinine Ratio 22.2 (6-22); Bilirubin Total 0.6 mg/dL (0.2-1.3); Blood Urea Nitrogen 12 mg/dL (7-17); Calcium 8.9 mg/dL (8.4-10.2); Carbon Dioxide 27 mmol/L (22-32); Chloride 105 mmol/L (98-107); Estimated Glomerular Filt Rate > 60.0 mL/min (>60); Globulin 3.5 g/dL (1.7-4.1); Glucose 93 mg/dL (80-110); HEMOLYSIS < 15 (0-50); Potassium 3.9 mmol/L (3.4-5.1); Sodium 137 mmol/L (137-145); Total Protein 7.4 g/dL (6.3-8.2)
--- NOTE | 2020-06-08 15:40 | PC.NURSE ---
pt medicated as per mdo tolorating po intake
[2020-06-08 15:52] LABS: Troponin I < 0.012 ng/mL (0.01-0.034)
--- NOTE | 2020-06-08 16:20 | PC.NURSE ---
pt ambualtory to bathroom steady gait
--- NOTE | 2020-06-08 16:34 | PC.NURSE ---
md at bedside reviewing results/poc with pt
== END 2020-06-08 17:04 | disposition home or self-care (01) ==
PROVIDERS: Emergency Provider Emergency Medicine; PCP Internal Medicine
DX: I10 Essential (primary) hypertension (principal)
CPT/HCPCS: 36415; 80053; 81003; 84484; 85025; 93005; 99283; 99284

== ENCOUNTER → 2020-12-24 14:40 | Outpatient (CLI) | payer MEDICARE, SELFPAY ==
[2019-05-17 13:45] VITALS: PULSE 119; RESP 10; O2SAT 99
[2019-07-15 18:17] VITALS: BMI 27.8
[2020-12-24] MEDS: COVID-19 VACC, Ad26(JANSSEN)/PF 0.5 ML IM (15:05)
== END ==
PROVIDERS: PCP Internal Medicine; Visit Provider Internal Medicine
DX: Z23 Encounter for immunization (principal)
CPT/HCPCS: 0031A; 91303

== ENCOUNTER → 2021-04-27 12:28 | Outpatient (CLI) | payer OTHER, SELFPAY ==
[2019-05-17 13:45] VITALS: PULSE 119; RESP 10; O2SAT 99
[2019-07-15 18:17] VITALS: BMI 27.8
[2021-04-27 13:20] LABS: Alanine Aminotransferase 20 IU/L (<35); Albumin 4.2 g/dL (3.5-5.0); Albumin Globulin Ratio 1.3 (1.0-2.8); Alkaline Phosphatase 56 U/L (38-126); Aspartate Aminotransferase 39 IU/L (14-36); BUN Creatinine Ratio 23.6 (6-22); Bilirubin Total 0.7 mg/dL (0.2-1.3); Blood Urea Nitrogen 13 mg/dL (7-17); Calcium 9.9 mg/dL (8.4-10.2); Carbon Dioxide 28 mmol/L (22-32); Chloride 102 mmol/L (98-107); Estimated Glomerular Filt Rate > 60.0 mL/min (>60); Globulin 3.3 g/dL (1.7-4.1); Glucose 93 mg/dL (80-110); HEMOLYSIS < 15 (0-50); Potassium 4.1 mmol/L (3.4-5.1); Sodium 137 mmol/L (137-145); Total Protein 7.5 g/dL (6.3-8.2)
[2021-04-27 13:34] LABS: Free T4, Direct Thyroxine 1.46 ng/dL (0.78-2.19)
[2021-04-27 13:48] LABS: Thyroid Stimulating Hormone 0.881 uIU/mL (0.47-4.68)
== END ==
PROVIDERS: PCP Internal Medicine; Referring Provider Internal Medicine; Visit Provider Internal Medicine
DX: E03.9 Hypothyroidism, unspecified (principal); E78.5 Hyperlipidemia, unspecified; I10 Essential (primary) hypertension
CPT/HCPCS: 36415; 80053; 84439; 84443

== ENCOUNTER → 2021-11-16 14:03 | Outpatient (CLI) | payer OTHER, SELFPAY ==
[2019-05-17 13:45] VITALS: PULSE 119; RESP 10; O2SAT 99
[2019-07-15 18:17] VITALS: BMI 27.8
== END ==
PROVIDERS: PCP Internal Medicine; Referring Provider Internal Medicine; Visit Provider Internal Medicine
DX: M85.851 Other specified disorders of bone density and structure, right thigh (principal); Z78.0 Asymptomatic menopausal state; E07.9 Disorder of thyroid, unspecified; Z82.62 Family history of osteoporosis; Z87.891 Personal history of nicotine dependence
CPT/HCPCS: 77080

== ENCOUNTER → 2022-03-21 14:09 | Outpatient (CLI) | payer OTHER, SELFPAY ==
[2019-05-17 13:45] VITALS: PULSE 119; RESP 10; O2SAT 99
[2019-07-15 18:17] VITALS: BMI 27.8
[2022-03-21 15:16] LABS: Free T4, Direct Thyroxine 1.16 ng/dL (0.78-2.19)
[2022-03-21 15:23] LABS: Alanine Aminotransferase 16 IU/L (<35); Albumin 4.3 g/dL (3.5-5.0); Albumin Globulin Ratio 1.3 (1.0-2.8); Alkaline Phosphatase 60 U/L (38-126); Aspartate Aminotransferase 33 IU/L (14-36); BUN Creatinine Ratio 18.5 (6-22); Bilirubin Total 0.4 mg/dL (0.2-1.3); Blood Urea Nitrogen 12 mg/dL (7-17); Calcium 9.1 mg/dL (8.4-10.2); Carbon Dioxide 27 mmol/L (22-32); Chloride 101 mmol/L (98-107); Cholesterol 281 mg/dL (140-199); Estimated Glomerular Filt Rate > 60 mL/min (>60); Globulin 3.4 g/dL (1.7-4.1); Glucose 91 mg/dL (80-110); HDL Cholesterol 97 mg/dL (40-60); HEMOLYSIS < 15 (0-50); LDL Cholesterol Calculated 166 mg/dL (<100); Potassium 4.1 mmol/L (3.4-5.1); Sodium 135 mmol/L (137-145); Total Protein 7.7 g/dL (6.3-8.2); Triglycerides 92 mg/dL (35-150)
[2022-03-21 15:29] LABS: Thyroid Stimulating Hormone 2.44 uIU/mL (0.47-4.68)
== END ==
PROVIDERS: PCP Internal Medicine; Referring Provider Internal Medicine; Visit Provider Internal Medicine
DX: I10 Essential (primary) hypertension (principal); E03.9 Hypothyroidism, unspecified; E78.5 Hyperlipidemia, unspecified
CPT/HCPCS: 36415; 80053; 80061; 84439; 84443

== ENCOUNTER → 2023-03-24 12:03 | Outpatient (CLI) | payer OTHER, SELFPAY ==
[2019-05-17 13:45] VITALS: PULSE 119; RESP 10; O2SAT 99
[2019-07-15 18:17] VITALS: BMI 27.8
[2023-03-24 13:02] LABS: Alanine Aminotransferase 16 IU/L (<35); Albumin 3.7 g/dL (3.5-5.0); Albumin Globulin Ratio 1.3 (1.0-2.8); Alkaline Phosphatase 59 U/L (38-126); Aspartate Aminotransferase 24 IU/L (14-36); Bilirubin Total 0.4 mg/dL (0.2-1.3); Blood Urea Nitrogen 14 mg/dL (7-17); Calcium 8.8 mg/dL (8.4-10.2); Carbon Dioxide 26 mmol/L (22-32); Chloride 103 mmol/L (98-107); Estimated Glomerular Filt Rate > 60 mL/min (>60); Globulin 2.8 g/dL (1.7-4.1); Glucose 75 mg/dL (80-110); HEMOLYSIS < 15 (0-50); Potassium 4.2 mmol/L (3.4-5.1); Sodium 136 mmol/L (137-145); Total Protein 6.5 g/dL (6.3-8.2)
[2023-03-24 13:16] LABS: Free T4, Direct Thyroxine 1.06 ng/dL (0.78-2.19)
[2023-03-24 13:30] LABS: Thyroid Stimulating Hormone 1.91 uIU/mL (0.47-4.68)
== END ==
PROVIDERS: PCP Internal Medicine; Referring Provider Internal Medicine; Visit Provider Internal Medicine
DX: E03.9 Hypothyroidism, unspecified (principal); E78.5 Hyperlipidemia, unspecified; I10 Essential (primary) hypertension
CPT/HCPCS: 36415; 80053; 84439; 84443

== ENCOUNTER → 2023-12-21 16:18 | Outpatient (CLI) | payer OTHER, SELFPAY ==
[2019-05-17 13:45] VITALS: PULSE 119; RESP 10; O2SAT 99
[2019-07-15 18:17] VITALS: BMI 27.8
[2023-12-21 17:42] LABS: Add Manual Diff / Slide Review NO; Basophils Absolute Auto 100 /uL (0-100); Basophils Percent Auto 1.2 % (0-2); Eosinophils Absolute Auto 200 /uL (0-450); Eosinophils Percent Auto 2.3 % (2-4); Hemoglobin 13.1 g/dL (12.0-16.0); Lymphocytes Absolute Auto 2000 /uL (1100-4500); Lymphocytes Percent Auto 31.3 % (25-40); Mean Corpuscular HGB Conc 33.7 % (30-36); Mean Corpuscular Hemoglobin 31.9 PG (26-34); Mean Corpuscular Volume 94.6 fL (80-100); Monocytes Absolute Auto 500 /uL (0-900); Monocytes Percent Auto 7.2 % (3-14); Neutrophils Absolute Auto 3800 /uL (1500-7000); Platelet Count 261 X10^3/uL (150-400); Red Blood Cell Count 4.12 X10^6/uL (4.0-5.2); Red Cell Distribution Width 15.4 % (11.6-14.8); White Blood Cell Count 6.5 X10^3/uL (4.5-11.0)
[2023-12-21 17:56] LABS: Alanine Aminotransferase 14 IU/L (<35); Albumin 4.1 g/dL (3.5-5.0); Albumin Globulin Ratio 1.2 (1.0-2.8); Alkaline Phosphatase 61 U/L (38-126); Aspartate Aminotransferase 26 IU/L (14-36); BUN Creatinine Ratio 32.4 (6-22); Bilirubin Total 0.6 mg/dL (0.2-1.3); Blood Urea Nitrogen 24 mg/dL (7-17); Calcium 9.3 mg/dL (8.4-10.2); Carbon Dioxide 29 mmol/L (22-32); Chloride 106 mmol/L (98-107); Estimated Glomerular Filt Rate > 60 mL/min (>60); Globulin 3.4 g/dL (1.7-4.1); Glucose 90 mg/dL (80-110); HEMOLYSIS < 15 (0-50); Potassium 3.9 mmol/L (3.4-5.1); Sodium 138 mmol/L (137-145); Total Protein 7.5 g/dL (6.3-8.2)
[2023-12-21 18:11] LABS: Free T4, Direct Thyroxine 1.06 ng/dL (0.78-2.19)
[2023-12-21 18:15] LABS: C-Reactive Protein Quant < 0.5 mg/dL (<1.0)
[2023-12-21 18:25] LABS: Thyroid Stimulating Hormone 7.81 uIU/mL (0.47-4.68)
[2023-12-21 18:52] LABS: Vitamin B12 213 pg/mL (239-931)
[2023-12-25 13:47] LABS: Arsenic 1 ug/L (0-9); Lead, Blood 2.1 ug/dL (0.0-3.4); Mercury, Blood < 1.0 ug/L (0.0-14.9)
== END ==
PROVIDERS: PCP Internal Medicine; Referring Provider Internal Medicine; Visit Provider Internal Medicine
DX: R41.3 Other amnesia (principal); E03.9 Hypothyroidism, unspecified; I10 Essential (primary) hypertension; E78.5 Hyperlipidemia, unspecified
CPT/HCPCS: 36415; 80053; 82175; 82607; 83655; 83825; 84439; 84443; 85025; 86140

== ENCOUNTER → 2024-04-30 12:18 | Outpatient (CLI) | payer OTHER, SELFPAY ==
[2019-05-17 13:45] VITALS: PULSE 119; RESP 10; O2SAT 99
[2019-07-15 18:17] VITALS: BMI 27.8
[2024-04-30 14:22] LABS: Add Manual Diff / Slide Review NO; Basophils Absolute Auto 100 /uL (0-100); Basophils Percent Auto 1.3 % (0-2); Eosinophils Absolute Auto 200 /uL (0-450); Hematocrit 38.6 % (36-46); Hemoglobin 12.9 g/dL (12.0-16.0); Lymphocytes Absolute Auto 2200 /uL (1100-4500); Lymphocytes Percent Auto 35.7 % (25-40); Mean Corpuscular HGB Conc 33.4 % (30-36); Mean Corpuscular Hemoglobin 32.6 PG (26-34); Mean Corpuscular Volume 97.5 fL (80-100); Monocytes Absolute Auto 400 /uL (0-900); Monocytes Percent Auto 6.9 % (3-14); Neutrophils Absolute Auto 3200 /uL (1500-7000); Neutrophils Percent Auto 52.1 % (50-75); Platelet Count 242 X10^3/uL (150-400); Red Blood Cell Count 3.95 X10^6/uL (4.0-5.2); Red Cell Distribution Width 16.9 % (11.6-14.8); White Blood Cell Count 6.1 X10^3/uL (4.5-11.0)
[2024-04-30 14:59] LABS: Alanine Aminotransferase 12 IU/L (<35); Albumin 3.8 g/dL (3.5-5.0); Albumin Globulin Ratio 1.2 (1.0-2.8); Alkaline Phosphatase 60 U/L (38-126); Aspartate Aminotransferase 24 IU/L (14-36); BUN Creatinine Ratio 19.8 (6-22); Bilirubin Total 0.6 mg/dL (0.2-1.3); Blood Urea Nitrogen 18 mg/dL (7-17); Calcium 8.7 mg/dL (8.4-10.2); Carbon Dioxide 25 mmol/L (22-32); Chloride 108 mmol/L (98-107); Estimated Glomerular Filt Rate > 60 mL/min (>60); Globulin 3.1 g/dL (1.7-4.1); Glucose 83 mg/dL (80-110); HEMOLYSIS < 15 (0-50); Potassium 4.8 mmol/L (3.4-5.1); Sodium 138 mmol/L (137-145); Total Protein 6.9 g/dL (6.3-8.2)
[2024-04-30 15:15] LABS: Free T4, Direct Thyroxine 1.31 ng/dL (0.78-2.19)
[2024-04-30 15:29] LABS: Thyroid Stimulating Hormone 2.18 uIU/mL (0.47-4.68)
[2024-04-30 15:47] LABS: Vitamin B12 358 pg/mL (239-931)
== END ==
LOC: LAB 12:19
PROVIDERS: PCP Internal Medicine; Referring Provider Internal Medicine; Visit Provider Internal Medicine
DX: I10 Essential (primary) hypertension (principal); E78.5 Hyperlipidemia, unspecified; E03.9 Hypothyroidism, unspecified
CPT/HCPCS: 36415; 80053; 82607; 84439; 84443; 85025